=== PATIENT | male | born 1955 | race Caucasian/White ===

== ENCOUNTER 2022-03-19 14:46 | Inpatient (IN) | payer OTHER, SELFPAY ==
[2022-03-19] VITALS (10 sets, daily range): BP systolic 118–154; BP diastolic 69–93; PULSE 75–119; RESP 20–44; TEMP 36.3–36.9; O2SAT 95–98; BMI 18.5
--- NOTE | ~2022-03-19 | XR_ITS ---
EXAMINATION: XR chest 2V Exam Date/Time: 03/24/2022 14:31 CDT HISTORY: epigastric pain Comparison: 03/19/2022. RESULT: Lines, tubes, and devices: Left chest pacer with intact leads. Right IJ dual-lumen central venous li ne terminating in the SVC. Lungs and pleura: Minimal subsegmental bibasilar opacities. Emphysematous change. Cardiomediastinal silhouette: Stable cardiomediastinal silhouette. Other: No acute osseous or upper abdominal finding. IMPRESSION: Bibasilar atelectasis. No acute cardiopulmonary process. Reviewed, dictated and finalized at location K.
--- NOTE | ~2022-03-19 | XR_ITS ---
EXAMINATION: XR chest 1V portable INDICATION: Shortness of breath TECHNIQUE: Portable AP chest at 1618 hours COMPARISON: None available FINDINGS: The lungs are hyperinflated but free of acute opacities. No pleural effusion or pneumothora x. A large bore right internal jugular catheter ends with its tip in the distal superior vena cava. T he cardiomediastinal silhouette is normal. A dual-lead cardiac pacemaker of the left chest wall ends with leads in expected locations. IMPRESSION: 1. No acute cardiopulmonary abnormality. Reviewed, dictated and finalized at location A.
--- NOTE | ~2022-03-19 | US_ITS ---
EXAMINATION: US renal BI DATE: 03/20/2022 09:04 INDICATION: Acute kidney injury TECHNIQUE: Multiple grayscale and Doppler ultrasound images of the kidneys were obtained. COMPARISON: None. FINDINGS: The right kidney is difficult to visualize due to overlying bowel and patient factors. The right kidney measures 7.7 x 4.0 x 3.5 cm. The left kidney measures 8.1 x 3.5 x 2.9 cm. The kidneys de monstrate normal parenchymal echogenicity. There is no hydronephrosis. The bladder is not distended. IMPRESSION: 1. Normal kidneys without hydronephrosis. Reviewed, dictated and finalized at location A.
--- NOTE | ~2022-03-19 | CT_ITS ---
EXAMINATION: CT brain wo con DATE: 03/19/2022 18:04 INDICATION: Confusion. Altered mental status. Covid-positive. Weakness. TECHNIQUE: Computed tomography (CT) of the head was performed without intravenous contrast. The mA wa s adjusted according to patient size. Iterative reconstruction technique was employed. Exam dose: 68 1.00 mGy-cm total exam DLP. COMPARISON: None FINDINGS: Moderate cerebral and cerebellar volume loss. There is nonspecific diminished attenuation o f the cerebral white matter, likely due to chronic small vessel ischemic changes. There is a chronic lacunar infarct of the left thalamus. No subdural or epidural hematoma is detected. There is prominent mucoperiosteal thickening of the maxillary sinuses and to a lesser extent the righ t sphenoid sinus. There is minimal mucoperiosteal thickening of the left sphenoid and frontal sinuses . Soft tissue thickening of the ethmoid air cells, left greater than right. The mastoid air cells are normally developed and aerated. Probable old nasal bone fractures. No fracture of the cranial vault. IMPRESSION: Chronic lacunar infarct of left thalamus Nonspecific diminished attenuation of cerebral white matter, likely due to chronic small vessel ische marek changes. Moderate cerebral and cerebellar volume loss No acute intracranial finding Reviewed, dictated and finalized at Location A. Reviewed, dictated and finalized at location B. 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 Moderate cerebral and cerebellar volume loss No acute intracranial finding
--- NOTE | 2022-03-19 15:12 | ECG_ITS ---
Measurements Intervals Shafer Rate: 113 P: 58 CA: 92 QRS: 68 QRSD: 97 T: 57 QT: 341 QTc: 469 Interpretive Statements SINUS TACHYCARDIA WITH SHORT CA INTERVAL NONSPECIFIC ST & T-WAVE ABNORMALITY ABNORMAL RHYTHM ECG NO PREVIOUS ECG AVAILABLE FOR COMPARISON Electronically Signed On 03-19-2022 19:39:00 CDT by Lady Francis M.D.
[2022-03-19 15:25] LABS: Basophils Absolute Auto 0.1 K/mm3 (0.0-0.1); Basophils Percent Auto 1.4 % (0.2-1.2); Eosinophils Absolute Auto 0.2 K/mm3 (0-0.3); Hematocrit 34.4 % (42.0-52.0); Immature Granulocyte Absolute 0.01 K/mm3 (0.00-0.031); Immature Granulocyte Percent A 0.1 % (0-0.5); Lymphocytes Absolute Auto 1.29 K/mm3 (0.9-3.2); Lymphocytes Percent Auto 18.5 % (18.3-44.2); Mean Corpuscular Hemoglobin 30.2 pg (26-34); Mean Corpuscular Volume 94.5 fl (80-100); Monocytes Absolute Auto 0.5 K/mm3 (0.1-0.6); Monocytes Percent Auto 7.2 % (2.6-8.5); Neutrophils Absolute Auto 4.9 K/mm3 (1.3-6.7); Neutrophils Percent Auto 69.8 % (45.5-73.1); Platelet Count Result 349 k/mm3 (150-375); Red Blood Count 3.64 M/mm3 (4.6-6.20); Red Cell Distribution Width 14.3 % (11.5-14.5)
--- NOTE | 2022-03-19 15:32 | ED.AMS ---
HPI - Altered Mental Status General Chief Complaint: Altered Mental Status Stated Complaint: altered loc, dyspnea Time Seen by Provider: 03/19/22 15:02 History of Present Illness HPI narrative: Pt sent to ER for altered mental status and shortness of breath from dialysis after he completed the procedure. Pt was somewhat SOB and altered before but worse afterward. Related Data Allergies Allergy/AdvReac Type Severity Reaction Status Date / Time No Known Allergies Allergy Unverified 03/19/22 14:57 Review of Systems Review of Systems: ROS unobtainable: Yes unobtainable due to mental status Exam Const: General: ill appearing Nutritional Appearance: thin Orientation/consciousness: patient oriented x3 (oriented to person only) Limitations: altered mental status HENMT: Head: normal to inspection Eyes: EOM: EOMs intact bilaterally Neck: Neck: normal visual inspection Resp: Effort & Inspection: labored and tachypneic Auscultation: wheezes Cardio: Rate: tachycardic Rhythm: regular rhythm GI: GI Palp: Yes Soft to palpation Auscultation: normal bowel sounds Back/Spine/Pelvis: Back: no CVA tenderness Skin: General skin exam: normal color Rashes: no rashes Neuro: General: patient oriented x3, moves all extremities and no meningeal signs Extrem: General: no clubbing, cyanosis or edema Course Vital Signs Vital signs: Vital Signs Temperature 97.4 F L 03/19/22 14:51 Pulse Rate 119 H 03/19/22 14:51 Respiratory Rate 44 H 03/19/22 14:51 Blood Pressure 139/77 03/19/22 14:51 Pulse Oximetry 96 03/19/22 14:51 Oxygen Delivery Nasal Cannula 03/19/22 14:51 Oxygen Flow Rate 6 03/19/22 14:51 Temperature 97.4 F L 03/19/22 14:51 Pulse Rate 96 03/19/22 18:50 Respiratory Rate 24 H 03/19/22 18:50 Blood Pressure 125/69 03/19/22 18:50 Pulse Oximetry 97 03/19/22 18:50 Oxygen Delivery Nasal Cannula 03/19/22 14:51 Oxygen Flow Rate 6 03/19/22 14:51 MDM - Altered Mental Status Lab Data Result diagrams: 03/19/22 15:17 03/19/22 15:17 Labs: Lab Results 03/19/22 03/19/22 03/19/22 Range/Units 15:17 15:17 15:17 WBC 7.0 (4.5-10.0) K/mm3 RBC 3.64 L (4.6-6.20) M/mm3 Hgb 11.0 L (14.0-18.0) g/dL Hct 34.4 L (42.0-52.0) % MCV 94.5 (80-100) fl MCH 30.2 (26-34) pg MCHC 32.0 (32-36) g/dl RDW 14.3 (11.5-14.5) % Plt Count 349 (150-375) k/mm3 MPV 10.0 (7.4-10.4) fl Immature Gran % (Auto) 0.1 (0-0.5) % Neut % (Auto) 69.8 (45.5-73.1) % Lymph % (Auto) 18.5 (18.3-44.2) % Henry % (Auto) 7.2 (2.6-8.5) % Eos % (Auto) 3.0 (0-4.4) % Baso % (Auto) 1.4 H (0.2-1.2) % Lymph # (Auto) 1.29 (0.9-3.2) K/mm3 Henry # (Auto) 0.5 (0.1-0.6) K/mm3 Eos # (Auto) 0.2 (0-0.3) K/mm3 Baso # (Auto) 0.1 (0.0-0.1) K/mm3 Abs Immat Gran (auto) 0.01 (0.00-0.031) K/mm3 Absolute Neuts (auto) 4.9 (1.3-6.7) K/mm3 Absolute Nucleated RBC 0.0 (0.0-0.012) K/mm3 Nucleated RBC % 0.0 (0.0-0.2) % PT 13.0 (11.1-14.7) Seconds INR 1.0 APTT 23.6 (22.3-36.8) SECONDS Sodium 135 L (137-145) mmol/L Potassium 4.4 (3.4-5.0) mmol/L Chloride 98 (98-107) mmol/L Carbon Dioxide 29 (22-30) mmol/L Anion Gap 8 (8-16) mmol/L BUN 14 (9-20) mg/dL Creatinine 2.60 H (0.7-1.3) mg/dL Estim Creat Clear Calc 18 ml/min Estimated GFR 25 L (59 - ) Glucose 130 H (65-110) mg/dL Lactic Acid (0.7-2.0) mmol/L Calcium 8.8 (8.4-10.2) mg/dL Total Bilirubin 0.8 (0.2-1.3) mg/dL AST 28 (17-59) U/L ALT 15 (6-50) U/L Alkaline Phosphatase 70 (38-126) U/L Total Protein 8.0 (6.3-8.2) g/dL Albumin 4.1 (3.5-5.1) g/dL Urine Color (Yellow) Urine Appearance (Clear) Urine pH (5.0-9.0) Ur Specific [place] (1.001-1.035) Urine Protein (Negative) mg/dL Urine Glucose (UA) (Negative) mg/dL Urine Ketones
[2022-03-19 15:33] LABS: Lactic Acid Reflex 1.4 mmol/L (0.7-2.0)
[2022-03-19 15:40] LABS: Partial Thromboplastin Time 23.6 SECONDS (22.3-36.8)
[2022-03-19 15:53] LABS: Alanine Aminotransferase 15 U/L (6-50); Albumin Level 4.1 g/dL (3.5-5.1); Alkaline Phosphatase 70 U/L (38-126); Anion Gap 8 mmol/L (8-16); Aspartate Amino Transferase 28 U/L (17-59); Bilirubin,Total 0.8 mg/dL (0.2-1.3); Blood Urea Nitrogen 14 mg/dL (9-20); Calcium 8.8 mg/dL (8.4-10.2); Carbon Dioxide 29 mmol/L (22-30); Chloride 98 mmol/L (98-107); Estimated CRCL calculation 18 ml/min; Estimated Glomerular Filt Rate 25; Glucose 130 mg/dL (65-110); Potassium 4.4 mmol/L (3.4-5.0); Sodium 135 mmol/L (137-145)
[2022-03-19 16:14] LABS: SARS-CoV-2 RNA PCR Positive
[2022-03-19 16:24] LABS: Appearance Urine Clear (Clear); Bilirubin Urine Negative (Negative); Blood Urine 1+ (Negative); Color Urine Yellow (Yellow); Glucose Urine UA Negative (Negative); Ketones Urine Negative (Negative); Leukocyte Esterase Ur Negative LEU/UL (Negative); Nitrate Urine Negative (Negative); Protein Urine 2+ mg/dL (Negative); Specific Grav Ur 1.015 (1.001-1.035); Urobilinogen Urine 0.2 mg/dL (<2.0); pH Urine 8.5 (5.0-9.0)
[2022-03-19] MEDS: ALBUTEROL SULFATE NEB 2.5 MG/3 ML INH INHALATION ×2 (16:39→22:46)
[2022-03-19] MEDS: IPRATROPIUM BR 0.02% INH SOLN 0.5 MG/2.5 ML VIAL INHALATION ×2 (16:40→22:46)
[2022-03-19 16:44] LABS: Bacteria Urine Trace /hpf; RBC Urine >75 /hpf (0-2); WBC Urine 0-3 /hpf
[2022-03-19 16:45] LABS: Add Urine Microscopic? YES
[2022-03-19 19:28] LABS: Influenza A QL RT-PCR Negative (Negative); Influenza B QL RT-PCR Negative (Negative)
--- NOTE | 2022-03-19 20:14 | PM.IMHP ---
H&P: HPI History of Present Illness Date/Time: 03/19/22 20:14 Chief Complaint: shortness of breath Narrative: this is a 66-year-old male with past medical history significant for COPD/emphysema, tobacco dependence, Essential tremors patient smokes 2 packs of cigarettes daily, presents to the emergency room due to altered mental status. Patient states that he has not been feeling well has been having chills rigors cough productive of sputum for the last few days or so, poor appetite. preliminary workup was significant for positive COVID-19. a chest x-ray did not show any acute abnormalities. Patient complains worsening of tremors, Feeling fatigued, tired, body aches and pains, poor appetite. patient is been admitted for further evaluation management and treatment. Review of Systems Review of Systems: worsening tremors, fatigue, poor appetite. Constitutional: Constitutional: Denies chills, Denies fever(s), Reports malaise, Denies night sweats and Reports weakness Eyes: Eyes: Denies change in vision ENT: Denies dysphagia, Denies vertigo, Denies dizziness and Denies odynophagia Cardiovascular: Cardiovascular: Denies syncope, Denies irregular heart rhythm, Denies lightheadedness, Denies palpitations, Denies dyspnea on exertion and Denies paroxysmal nocturnal dyspnea Respiratory: Respiratory: Reports cough, Denies excessive phlegm production and Denies dyspnea Gastrointestinal: Gastrointestinal: Denies abdominal pain, Denies dyspepsia and Denies heartburn Genitourinary: Genitourinary: Denies dysuria Musculoskeletal: Musculoskeletal: Denies joint swelling, Reports muscle weakness and Denies neck pain Integumentary/Breasts: Skin/Breast: Denies rash Neurologic: Reports tremor(s) Psychiatric: Psychiatric: Reports no additional psychiatric complaints and Reports as per HPI Endocrine: Endocrine: Denies cold intolerance, Denies heat intolerance, Denies polyphagia, Denies polydipsia and Denies palpitations Hematologic/Lymphatic: Hematologic/Lymphatic: Reports no additional hematologic/lymphatic complaints and Reports as per HPI Allergic/Immunologic: Allergic/Immunologic: Reports no additional allergic/immunologic complaints and Reports as per HPI [facility] Family History Family History (Updated 03/19/22 @ 20:58 by Dania Stuart RN) Father Cancer of lung Mother Heart failure Social History Social History (System 08/09/20 @ 08:09 by Sailaja Bernstein) Smoking packs per day: 2 Smoking cigarettes per day: 40.0 Smoking status: Heavy tobacco smoker Alcohol intake: former Substance use: never Spiritual care concerns: No Meds Home Medications and Allergies Home Medications Medication Instructions Recorded Confirmed Type aspirin 81 mg tablet,delayed 81 mg PO DAILY 03/19/22 03/19/22 History release atorvastatin 40 mg tablet 40 mg PO DAILY 03/19/22 03/19/22 History clonidine HCl 0.1 mg tablet 0.1 mg PO TID 03/19/22 03/19/22 History divalproex 500 mg tablet,extended 500 mg PO BID 03/19/22 03/19/22 History release 24 hr famotidine 20 mg tablet 20 mg PO HS 03/19/22 03/19/22 History hydralazine 50 mg tablet 100 mg PO TID 03/19/22 03/19/22 History isosorbide mononitrate 30 mg PO DAILY 03/19/22 03/19/22 History nifedipine 90 mg tablet,extended 90 mg PO DAILY 03/19/22 03/19/22 History release oxybutynin chloride 10 mg 10 mg PO DAILY 03/19/22 03/19/22 History tablet,extended release 24 hr sodium bicarbonate 650 mg tablet 650 mg PO TID 03/19/22 03/19/22 History Allergies Allergy/AdvReac Type Severity Reaction Status Date / Time No Known Allergies Allergy Verified 03/19/22 20:51 Vital Signs Vital Signs - 24 hr 03/19/22 14:51 03/19/22 15:18 03/19/22 16:19 Temperature 97.4 F L Pulse Rate 119 H 117 H 106 H Respiratory Rate 44 H 33 H 31 H Blood Pressure 139/77 131/77 118/74 Pulse Oximetry 96 97 97 Oxygen Delivery Nasal Cannula Oxygen Flow Rate 6 03/19/22 18:02 03/19
--- NOTE | 2022-03-19 20:50 | ADMGEN ---
This patient, Sachin Donahue, was admitted to [facility] Surg Room 333-01. Patient/family oriented to hospital policies and general routines including ID bracelet, bed and alarms, visiting hours, pain management, procedures, bathroom and other care routines, personal items, smoking policy, room service/diet, and visiting hours. Information on how to activate the Rapid Response Team has been discussed. Patient/Family are encouraged to report perceived risks to care and to ask questions if they do not understand what they are told or what they should do.
[2022-03-20] VITALS (12 sets, daily range): BP systolic 95–167; BP diastolic 53–78; PULSE 60–85; RESP 18–26; TEMP 35.8–36.9; O2SAT 95–100; BMI 18.5
[2022-03-20] MEDS: LORazepam INJ (*CRX) 2 MG/ML VIAL 1 MG IV PUSH (00:15)
[2022-03-20] MEDS: cloNIDine HCL 0.1 MG TABLET PO ×4 (01:25→17:38)
[2022-03-20] MEDS: SODIUM BICARBONATE TAB 650 MG TABLET PO ×4 (01:25→17:38)
[2022-03-20] MEDS: DIVALPROEX SODIUM ER 500 MG TAB.24H PO ×3 (01:26→17:38)
[2022-03-20] MEDS: FAMOTIDINE 20 MG TABLET PO ×2 (01:28→20:46)
[2022-03-20 04:32] LABS: Creatinine Urine 86.7 mg/dL
[2022-03-20 04:34] LABS: Sodium Urine Random 94 meq/L
[2022-03-20 08:26] LABS: Glucose Point of Care 81 mg/dl (65-105)
[2022-03-20] MEDS: ATORVASTATIN 40 MG TABLET PO (09:40)
[2022-03-20] MEDS: NIFEdipine 30 MG TAB.ER.24 90 MG PO (09:40)
[2022-03-20] MEDS: ASPIRIN 81 MG ENTERIC TABLET PO (09:40)
[2022-03-20] MEDS: hydrALAZINE HCL 50 MG TABLET 100 MG PO ×3 (09:40→17:37)
[2022-03-20] MEDS: ISOSORBIDE MONONITRATE 30 MG TAB.ER.24H PO (09:41)
--- NOTE | 2022-03-20 13:12 | PM.IMPN ---
Progress Note: A&P Assessment and Plan (1) COPD exacerbation: Code(s): J44.1 - Chronic obstructive pulmonary disease with (acute) exacerbation Status: Acute Assessment and Plan: admit to regular medical floor breathing treatments continue to monitor supportive care (2) COVID-19: Code(s): U07.1 - COVID-19 Status: Acute Assessment and Plan: continue to monitor oxygen as needed (3) Tobacco dependence: Code(s): F17.200 - Nicotine dependence, unspecified, uncomplicated Status: Acute Assessment and Plan: nicotine patch as needed (4) CAMERON (acute kidney injury): Code(s): N17.9 - Acute kidney failure, unspecified Status: Acute Assessment and Plan: creatinine is 2.6 no prior values for comparison Dela Cruz catheter in urine lytes in progress recheck BMP ordered Subjective Date/time seen: 03/20/22 13:12 no new complaint Exam Narrative: Patient is laying in bed Const: General: comfortable, no acute distress, well developed, alert, awake and ill appearing Nutritional Appearance: underweight Orientation/consciousness: patient oriented x3 HENMT: Head: normal to inspection, normocephalic and atraumatic Ears: hearing grossly normal bilaterally Face and sinus: normal facial exam Eyes: General: appearance normal, both eyes and all related structures Pupils: Equal, round and reactive pupils present EOM: EOMs intact bilaterally Neck: Neck: full ROM, no lymphadenopathy and no JVD Thyroid: thyroid normal Lymphatic: no lymphadenopathy noted Resp: Effort & Inspection: normal respiratory effort and able to speak in complete sentences Auscultation: clear to auscultation bilaterally and wheezes Cardio: Jugular venous distension: no JVD Rate: regular rate Rhythm: regular rhythm Heart sounds: S1 normal heart sound present and S2 normal heart sound present GI: Inspection: normal to inspection : General: Yes deferred Skin: Rashes: no rashes Wounds: no wounds Neuro: General: patient oriented x3, CN's II-XI intact bilaterally and Unable to assess gait Cranial nerves: Yes CN's II-XII intact bilaterally and Yes Equal, round and reactive pupils present Cognition (Neuro): normal cognition Speech: normal speech Gait exam (Neuro): Normal gait present and Unable to assess gait Motor exam (neuro): 5/5 motor strength present throughout Extrem: General: normal to inspection, full ROM, no joint enlargement and no pedal edema Objective Data Vital Signs Vital Signs: Vital Signs - 24 hr 03/19/22 14:51 03/19/22 15:18 03/19/22 16:19 Temperature 97.4 F L Pulse Rate 119 H 117 H 106 H Respiratory Rate 44 H 33 H 31 H Blood Pressure 139/77 131/77 118/74 Pulse Oximetry 96 97 97 Oxygen Delivery Nasal Cannula Oxygen Flow Rate 6 03/19/22 18:02 03/19/22 18:50 03/19/22 21:50 Temperature 98.5 F Pulse Rate 112 H 96 86 Respiratory Rate 30 H 24 H 20 Blood Pressure 134/73 125/69 154/93 H Pulse Oximetry 98 97 97 Oxygen Delivery Oxygen Flow Rate 03/19/22 20:00 03/19/22 22:47 03/19/22 23:00 Temperature Pulse Rate 108 H 79 75 Respiratory Rate 23 H 20 Blood Pressure Pulse Oximetry Oxygen Delivery Oxygen Flow Rate 03/19/22 23:02 03/19/22 20:00 03/20/22 00:00 Temperature Pulse Rate 75 75 79 Respiratory Rate 20 Blood Pressure Pulse Oximetry 95 95 Oxygen Delivery Nasal Cannula Oxygen Flow Rate 2 4 03/20/22 01:00 03/20/22 04:00 03/20/22 06:07 Temperature 97.8 F 97.8 F Pulse Rate 63 78 71 Respiratory Rate 26 H 20 Blood Pressure 139/75 167/74 H Pulse Oximetry 95 98 Oxygen Delivery Oxygen Flow Rate 03/20/22 08:00 Temperature 97.1 F L Pulse Rate 64 Respiratory Rate 20 Blood Pressure 157/78 H Pulse Oximetry 96 Oxygen Delivery Oxygen Flow Rate Intake/Output Intake/Output: Intake & Output 03/17/22 03/18/22 03/19/22 03/20/22 23:59 23:59 23:59 23:59 Intake Total 20
[2022-03-20] MEDS: NICOTINE (*PBKC) 21 MG PATCH 1 PATCH TRANSDERM (17:37)
[2022-03-20] MEDS: IPRATROPIUM BR 0.02% INH SOLN 0.5 MG/2.5 ML VIAL INHALATION (21:16)
[2022-03-21] VITALS (14 sets, daily range): BP systolic 115–147; BP diastolic 70–80; PULSE 60–90; RESP 14–20; TEMP 36.2–37.5; O2SAT 92–99
[2022-03-21 07:13] LABS: Hematocrit 29.3 % (42.0-52.0); Mean Corpuscular HGB Conc 30.7 g/dl (32-36); Mean Corpuscular Hemoglobin 29.9 pg (26-34); Mean Corpuscular Volume 97.3 fl (80-100); Platelet Count Result 295 k/mm3 (150-375); Red Blood Count 3.01 M/mm3 (4.6-6.20); Red Cell Distribution Width 14.1 % (11.5-14.5); White Blood Count 6.5 K/mm3 (4.5-10.0)
[2022-03-21 07:27] LABS: Anion Gap 4 mmol/L (8-16); Blood Urea Nitrogen 28 mg/dL (9-20); Calcium 8.1 mg/dL (8.4-10.2); Carbon Dioxide 34 mmol/L (22-30); Chloride 97 mmol/L (98-107); Estimated CRCL calculation 9 ml/min; Estimated Glomerular Filt Rate 10; Glucose 94 mg/dL (65-110); Potassium 3.9 mmol/L (3.4-5.0); Sodium 135 mmol/L (137-145)
[2022-03-21] MEDS: NICOTINE (*PBKC) 21 MG PATCH 1 PATCH TRANSDERM (08:53)
[2022-03-21] MEDS: IPRATROPIUM BR 0.02% INH SOLN 0.5 MG/2.5 ML VIAL INHALATION ×4 (09:29→23:45)
[2022-03-21] MEDS: NIFEdipine 30 MG TAB.ER.24 90 MG PO (10:21)
[2022-03-21] MEDS: ASPIRIN 81 MG ENTERIC TABLET PO (10:22)
[2022-03-21] MEDS: cloNIDine HCL 0.1 MG TABLET PO ×3 (10:23→18:10)
[2022-03-21] MEDS: hydrALAZINE HCL 50 MG TABLET 100 MG PO ×3 (10:24→18:10)
[2022-03-21] MEDS: ATORVASTATIN 40 MG TABLET PO (10:25)
[2022-03-21] MEDS: ISOSORBIDE MONONITRATE 30 MG TAB.ER.24H PO (10:25)
[2022-03-21] MEDS: SODIUM BICARBONATE TAB 650 MG TABLET PO ×3 (10:26→18:10)
[2022-03-21] MEDS: DIVALPROEX SODIUM ER 500 MG TAB.24H PO ×2 (10:34→18:10)
--- NOTE | 2022-03-21 12:39 | PM.IMPN ---
Progress Note: A&P Assessment and Plan (1) COPD exacerbation: Code(s): J44.1 - Chronic obstructive pulmonary disease with (acute) exacerbation Status: Acute Assessment and Plan: Improved. (2) COVID-19: Code(s): U07.1 - COVID-19 Status: Acute Assessment and Plan: continue to monitor oxygen as needed (3) Tobacco dependence: Code(s): F17.200 - Nicotine dependence, unspecified, uncomplicated Status: Acute Assessment and Plan: nicotine patch as needed (4) Chronic kidney disease: Code(s): N18.9 - Chronic kidney disease, unspecified Status: Acute Assessment and Plan: Nephrology has been consulted Patient is hemodialysis patient. (5) Bacteremia: Code(s): R78.81 - Bacteremia Status: Acute Assessment and Plan: Gram-positive coccus in clusters in 2 bottles. IV vanc. Patient does have hemodialysis catheter and Subjective Date/time seen: 03/21/22 12:39 No new complaints today. Patient just feels weak overall. This is a chronic issue Exam Narrative: Patient is laying in bed Const: General: comfortable, no acute distress, well developed, alert, awake and ill appearing Nutritional Appearance: underweight Orientation/consciousness: patient oriented x3 HENMT: Head: normal to inspection, normocephalic and atraumatic Ears: hearing grossly normal bilaterally Face and sinus: normal facial exam Eyes: General: appearance normal, both eyes and all related structures Pupils: Equal, round and reactive pupils present EOM: EOMs intact bilaterally Neck: Neck: full ROM, no lymphadenopathy and no JVD Thyroid: thyroid normal Lymphatic: no lymphadenopathy noted Resp: Effort & Inspection: normal respiratory effort and able to speak in complete sentences Auscultation: clear to auscultation bilaterally and wheezes Cardio: Jugular venous distension: no JVD Rate: regular rate Rhythm: regular rhythm Heart sounds: S1 normal heart sound present and S2 normal heart sound present GI: Inspection: normal to inspection : General: Yes deferred Skin: Rashes: no rashes Wounds: no wounds Neuro: General: patient oriented x3, CN's II-XI intact bilaterally and Unable to assess gait Cranial nerves: Yes CN's II-XII intact bilaterally and Yes Equal, round and reactive pupils present Cognition (Neuro): normal cognition Speech: normal speech Gait exam (Neuro): Normal gait present and Unable to assess gait Motor exam (neuro): 5/5 motor strength present throughout Extrem: General: normal to inspection, full ROM, no joint enlargement and no pedal edema Objective Data Vital Signs Vital Signs: Vital Signs - 24 hr 03/20/22 16:00 03/20/22 20:18 03/20/22 21:16 Temperature 98.4 F Pulse Rate 62 72 77 Respiratory Rate 18 20 Blood Pressure 125/73 Pulse Oximetry 97 Oxygen Delivery Oxygen Flow Rate 03/20/22 21:25 03/20/22 20:00 03/21/22 00:00 Temperature 97.8 F Pulse Rate 78 64 Respiratory Rate 20 20 Blood Pressure 147/80 H Pulse Oximetry 97 98 Oxygen Delivery Nasal Cannula Oxygen Flow Rate 1 03/20/22 20:00 03/21/22 00:00 03/21/22 04:00 Temperature 98.4 F Pulse Rate 69 78 61 Respiratory Rate 18 Blood Pressure 139/73 Pulse Oximetry 99 Oxygen Delivery Oxygen Flow Rate 03/21/22 04:00 03/21/22 08:00 03/21/22 08:00 Temperature 97.1 F L Pulse Rate 60 80 Respiratory Rate 14 Blood Pressure 144/80 H Pulse Oximetry 98 98 Oxygen Delivery Nasal Cannula Oxygen Flow Rate 1 03/21/22 09:20 03/21/22 09:35 03/21/22 09:00 Temperature Pulse Rate 77 78 90 Respiratory Rate 20 20 Blood Pressure Pulse Oximetry Oxygen Delivery Oxygen Flow Rate 03/21/22 12:00 03/21/22 12:00 Temperature 99.5 F Pulse Rate 80 77 Respiratory Rate 16 Blood Pressure 137/73 Pulse Oximetry 97 Oxygen Delivery Oxygen Flow Rate Intake/Output Intake/Output: Intake & Output
--- NOTE | 2022-03-21 15:05 | PCCCNOTE ---
On 03/21/22, the student, [Rebecca Ferrell], provided care and completed [facility] documentation on this patient. I have reviewed the student's documentation and agree with the findings.
[2022-03-21] MEDS: ALBUTEROL SULFATE NEB 2.5 MG/3 ML INH INHALATION ×2 (16:30→20:37)
[2022-03-21 20:21] LABS: Hepatitis B Surface Antigen Negative (Negative)
[2022-03-21 20:26] LABS: Hepatitis B Core IgM Result Negative (Negative)
[2022-03-21 20:38] LABS: Hepatitis B Surface Anti Res Negative
[2022-03-21] MEDS: FAMOTIDINE 20 MG TABLET PO (21:03)
[2022-03-22] VITALS (27 sets, daily range): BP systolic 114–177; BP diastolic 64–104; PULSE 60–108; RESP 16–24; TEMP 36.1–36.7; O2SAT 93–98
[2022-03-22] MEDS: IPRATROPIUM BR 0.02% INH SOLN 0.5 MG/2.5 ML VIAL INHALATION ×5 (03:25→21:47)
[2022-03-22 06:21] LABS: Hematocrit 27.8 % (42.0-52.0); Hemoglobin 8.9 g/dL (14.0-18.0); Mean Corpuscular Hemoglobin 30.4 pg (26-34); Mean Corpuscular Volume 94.9 fl (80-100); Mean Platelet Volume 10.5 fl (7.4-10.4); Platelet Count Result 268 k/mm3 (150-375); Red Blood Count 2.93 M/mm3 (4.6-6.20); Red Cell Distribution Width 14.1 % (11.5-14.5); White Blood Count 7.2 K/mm3 (4.5-10.0)
[2022-03-22 07:57] LABS: Anion Gap 6 mmol/L (8-16); Blood Urea Nitrogen 38 mg/dL (9-20); Calcium 8.1 mg/dL (8.4-10.2); Carbon Dioxide 30 mmol/L (22-30); Chloride 99 mmol/L (98-107); Estimated CRCL calculation 9 ml/min; Estimated Glomerular Filt Rate 10; Glucose 110 mg/dL (65-110); Sodium 135 mmol/L (137-145)
--- NOTE | 2022-03-22 09:27 | PM.CNNEP ---
Assessment and Plan Assessment and plan (1) End stage renal disease: Code(s): N18.6 - End stage renal disease Status: Acute Assessment and Plan: End-stage renal disease COVID-19 positive status Altered mental status secondary to underlying infection COPD/emphysema Hypertensive renal disease History of urine retention Anemia chronic kidney disease Secondary hyperparathyroidism Tremor secondary to some medication Plan: -hemodialysis today -review medications which testing on an outpatient basis -follow-up for ESRD and related problems -patient does decompensate with his respiratory system quickly. Follow-up. History of Present Illness Reason for Consult Consult date: 03/22/22 Chief Complaint Chief complaint: altered mental status History of Present Illness Narrative: With medium white male with history of ESRD on a Friday, , Friday dialysis schedule in [place]. He had last dialysis on Friday. He was admitted with mental status changes. He has had fevers and chills, cough, productive sputum, found to be COVID positive with new chest x-ray changes. He has underlying COPD and emphysema and chronic respiratory failure. Now admitted for further management. The ostomy to his ongoing renal failure needs. He states that he takes medication with close tremens. He does not know which way it is. There is no lower extremity swelling. He has puffiness around his eyelids. There is no nausea vomiting. Has a chronic indwelling Dela Cruz catheter for urine retention. Number his head or urological follow-up for a while. Review of Systems Review of Systems: All systems reviewed & are unremarkable except as noted in HPI and below PMFSH Past Medical History Medical History (Updated 03/22/22 @ 09:33 by Reji Forte MD) End stage renal disease Family History Family History (Updated 03/19/22 @ 20:58 by Dania Stuart RN) Father Cancer of lung Mother Heart failure Social History Social History (System 08/09/20 @ 08:09 by Sailaja Bernstein) Smoking packs per day: 2 Smoking cigarettes per day: 40.0 Smoking status: Heavy tobacco smoker Alcohol intake: former Substance use: never Spiritual care concerns: No Meds Home Medications and Allergies Home Medications Medication Instructions Recorded Confirmed Type aspirin 81 mg tablet,delayed 81 mg PO DAILY 03/19/22 03/19/22 History release atorvastatin 40 mg tablet 40 mg PO DAILY 03/19/22 03/19/22 History clonidine HCl 0.1 mg tablet 0.1 mg PO TID 03/19/22 03/19/22 History divalproex 500 mg tablet,extended 500 mg PO BID 03/19/22 03/19/22 History release 24 hr famotidine 20 mg tablet 20 mg PO HS 03/19/22 03/19/22 History hydralazine 50 mg tablet 100 mg PO TID 03/19/22 03/19/22 History isosorbide mononitrate 30 mg PO DAILY 03/19/22 03/19/22 History nifedipine 90 mg tablet,extended 90 mg PO DAILY 03/19/22 03/19/22 History release oxybutynin chloride 10 mg 10 mg PO DAILY 03/19/22 03/19/22 History tablet,extended release 24 hr sodium bicarbonate 650 mg tablet 650 mg PO TID 03/19/22 03/19/22 History Allergies Allergy/AdvReac Type Severity Reaction Status Date / Time No Known Allergies Allergy Verified 03/19/22 20:51 Vital Signs Vital Signs - 24 hr 03/21/22 09:35 03/21/22 12:00 03/21/22 12:00 Temperature 37.5 C Pulse Rate 78 80 77 Respiratory Rate 20 16 Blood Pressure 137/73 Pulse Oximetry 97 Oxygen Delivery Oxygen Flow Rate 03/21/22 16:00 03/21/22 16:00 03/21/22 16:30 Temperature 36.7 C Pulse Rate 69 70 Respiratory Rate 18 Blood Pressure 119/72 Pulse Oximetry 98 93 Oxygen Delivery Nasal Cannula Oxygen Flow Rate 2 03/21/22 16:30 03/21/22 20:39 03/21/22 20:39 Temperature Pulse Rate 84 78 Respiratory Rate 20 20 Blood Pressure Pulse Oximetry 92 Oxygen Delivery Nasal Cannula Oxygen Flow Rate 2 03/21/22 16:35 03/21/22 16:3
[2022-03-22] MEDS: DIVALPROEX SODIUM ER 500 MG TAB.24H PO ×2 (10:14→20:02)
[2022-03-22] MEDS: NIFEdipine 30 MG TAB.ER.24 90 MG PO (10:14)
[2022-03-22] MEDS: ATORVASTATIN 40 MG TABLET PO (10:15)
[2022-03-22] MEDS: hydrALAZINE HCL 50 MG TABLET 100 MG PO ×2 (10:15→20:02)
[2022-03-22] MEDS: SODIUM BICARBONATE TAB 650 MG TABLET PO ×2 (10:15→20:02)
[2022-03-22] MEDS: NICOTINE (*PBKC) 21 MG PATCH 1 PATCH TRANSDERM (10:15)
[2022-03-22] MEDS: cloNIDine HCL 0.1 MG TABLET PO ×2 (10:15→20:02)
[2022-03-22] MEDS: ASPIRIN 81 MG ENTERIC TABLET PO (10:15)
[2022-03-22] MEDS: ISOSORBIDE MONONITRATE 30 MG TAB.ER.24H PO (10:15)
--- NOTE | 2022-03-22 11:57 | PM.IMPN ---
Progress Note: A&P Assessment and Plan (1) COPD exacerbation: Code(s): J44.1 - Chronic obstructive pulmonary disease with (acute) exacerbation Status: Acute Assessment and Plan: Improved. (2) COVID-19: Code(s): U07.1 - COVID-19 Status: Acute Assessment and Plan: continue to monitor oxygen as needed (3) Tobacco dependence: Code(s): F17.200 - Nicotine dependence, unspecified, uncomplicated Status: Acute Assessment and Plan: nicotine patch as needed (4) Chronic kidney disease: Code(s): N18.9 - Chronic kidney disease, unspecified Status: Acute Assessment and Plan: Nephrology has been consulted Patient is hemodialysis patient. (5) Bacteremia: Code(s): R78.81 - Bacteremia Status: Acute Assessment and Plan: Gram-positive coccus in clusters in 2 bottles. IV vanc. Patient does have hemodialysis catheter. Subjective Date/time seen: 03/22/22 11:57 No new complaints Exam Narrative: Patient is laying in bed Const: General: comfortable, no acute distress, well developed, alert, awake and ill appearing Nutritional Appearance: underweight Orientation/consciousness: patient oriented x3 HENMT: Head: normal to inspection, normocephalic and atraumatic Ears: hearing grossly normal bilaterally Face and sinus: normal facial exam Eyes: General: appearance normal, both eyes and all related structures Pupils: Equal, round and reactive pupils present EOM: EOMs intact bilaterally Neck: Neck: full ROM, no lymphadenopathy and no JVD Thyroid: thyroid normal Lymphatic: no lymphadenopathy noted Resp: Effort & Inspection: normal respiratory effort and able to speak in complete sentences Auscultation: clear to auscultation bilaterally and wheezes Cardio: Jugular venous distension: no JVD Rate: regular rate Rhythm: regular rhythm Heart sounds: S1 normal heart sound present and S2 normal heart sound present GI: Inspection: normal to inspection : General: Yes deferred Skin: Rashes: no rashes Wounds: no wounds Neuro: General: patient oriented x3, CN's II-XI intact bilaterally and Unable to assess gait Cranial nerves: Yes CN's II-XII intact bilaterally and Yes Equal, round and reactive pupils present Cognition (Neuro): normal cognition Speech: normal speech Gait exam (Neuro): Normal gait present and Unable to assess gait Motor exam (neuro): 5/5 motor strength present throughout Extrem: General: normal to inspection, full ROM, no joint enlargement and no pedal edema Objective Data Vital Signs Vital Signs: Vital Signs - 24 hr 03/21/22 12:00 03/21/22 12:00 03/21/22 16:00 Temperature 99.5 F 98.0 F Pulse Rate 80 77 69 Respiratory Rate 16 18 Blood Pressure 137/73 119/72 Pulse Oximetry 97 98 Oxygen Delivery Oxygen Flow Rate 03/21/22 16:00 03/21/22 16:30 03/21/22 16:30 Temperature Pulse Rate 70 84 Respiratory Rate 20 Blood Pressure Pulse Oximetry 93 Oxygen Delivery Nasal Cannula Oxygen Flow Rate 2 03/21/22 20:39 03/21/22 20:39 03/21/22 16:35 Temperature Pulse Rate 78 Respiratory Rate 20 Blood Pressure Pulse Oximetry 92 93 Oxygen Delivery Nasal Cannula Oxygen Flow Rate 2 03/21/22 16:35 03/21/22 20:00 03/21/22 20:00 Temperature 98.2 F Pulse Rate 80 73 Respiratory Rate 20 16 Blood Pressure 115/70 Pulse Oximetry 94 96 Oxygen Delivery Nasal Cannula Oxygen Flow Rate 2 03/21/22 23:45 03/21/22 23:50 03/22/22 00:00 Temperature 97.6 F Pulse Rate 88 86 75 Respiratory Rate 20 20 16 Blood Pressure 114/65 Pulse Oximetry 98 Oxygen Delivery Oxygen Flow Rate 03/22/22 03:15 03/22/22 03:27 03/21/22 20:00 Temperature Pulse Rate 78 86 87 Respiratory Rate 20 20 Blood Pressure Pulse Oximetry Oxygen Delivery Oxygen Flow Rate 03/22/22 00:00 03/22/22 04:00 03/22/22 04:00 Temperature 97.9 F Pulse Rate 72 68 75 R
--- NOTE | 2022-03-22 14:04 | PC.NURSE ---
Patient transferred to Dialysis via bed at 1354
--- NOTE | 2022-03-22 15:42 | PCCCNOTE ---
On 03/22/22, the student, [Rebecca Ferrell], provided care and completed [facility] documentation on this patient. I have reviewed the student's documentation and agree with the findings.
[2022-03-22] MEDS: FAMOTIDINE 20 MG TABLET PO (20:02)
[2022-03-22] MEDS: polyethylene glycoL 3350 17 GM POWD.PACK PO (20:02)
[2022-03-22 20:30] LABS: Vancomycin Random 5.9 ug/mL (10-20)
[2022-03-22] MEDS: ACETAMINOPHEN 325 MG TABLET 650 MG PO (21:39)
[2022-03-23] VITALS (19 sets, daily range): BP systolic 131–165; BP diastolic 69–85; PULSE 69–96; RESP 14–20; TEMP 36.4–36.6; O2SAT 95–100
[2022-03-23] MEDS: IPRATROPIUM BR 0.02% INH SOLN 0.5 MG/2.5 ML VIAL INHALATION ×6 (00:19→19:33)
[2022-03-23] MEDS: hydrALAZINE HCL 50 MG TABLET 100 MG PO ×3 (08:02→19:56)
[2022-03-23] MEDS: DIVALPROEX SODIUM ER 500 MG TAB.24H PO ×2 (08:03→17:13)
[2022-03-23] MEDS: cloNIDine HCL 0.1 MG TABLET PO ×3 (08:03→19:56)
[2022-03-23] MEDS: ASPIRIN 81 MG ENTERIC TABLET PO (08:04)
[2022-03-23] MEDS: SODIUM BICARBONATE TAB 650 MG TABLET PO ×3 (08:04→19:56)
[2022-03-23] MEDS: ISOSORBIDE MONONITRATE 30 MG TAB.ER.24H PO (08:04)
[2022-03-23] MEDS: NIFEdipine 30 MG TAB.ER.24 90 MG PO (08:04)
[2022-03-23] MEDS: ATORVASTATIN 40 MG TABLET PO (08:05)
[2022-03-23] MEDS: NICOTINE (*PBKC) 21 MG PATCH 1 PATCH TRANSDERM (08:05)
[2022-03-23] MEDS: ALBUTEROL SULFATE NEB 2.5 MG/3 ML INH INHALATION ×2 (09:10→12:59)
[2022-03-23] MEDS: polyethylene glycoL 3350 17 GM POWD.PACK PO (10:08)
--- NOTE | 2022-03-23 11:12 | PM.PNNEP ---
Progress Note: A&P Assessment and Plan (1) End stage renal disease: Code(s): N18.6 - End stage renal disease Status: Chronic Assessment and Plan: HD yesterday normal outpatient schedule is T/T/S will likely plan next HD session on Friday or Friday follow electrolytes, volume status, and clearance (2) Bacteremia: Code(s): R78.81 - Bacteremia Status: Acute Assessment and Plan: blood cultures with Staphylococcus haemolyticus x 2 repeat blood cultures pending (but was already started on antibiotics before re-draw) potential source is tunneled HD catheter... if repeat cultures still positive, will likely need HD catheter removal if repeat cultures negative, would attempt HD catheter salvage with at least 2 weeks IV antibiotics (likely vancomycin given sensitivities) with repeat cultures afterwards to ensure clearance of infection (3) COVID-19: Code(s): U07.1 - COVID-19 Status: Acute Assessment and Plan: appears relatively stable oxygen as needed on isolation monitor respiratory status (4) COPD exacerbation: Code(s): J44.1 - Chronic obstructive pulmonary disease with (acute) exacerbation Status: Acute Assessment and Plan: clinically better on nebulizer treatments continue current therapy (5) Hypertension: Code(s): I10 - Essential (primary) hypertension Status: Chronic Assessment and Plan: reasonsable control at this time continue home medications follow trend of hemodynamics (6) Altered mental status: Code(s): R41.82 - Altered mental status, unspecified Status: Acute Assessment and Plan: improved mentation likely due to infection (bacteremia and COVID -19) Discussed case with Dr. Garay Will continue to follow. Subjective Date/time seen: 03/23/22 11:12 Chart reviewed - following for Dr. Forte; tolerated dialysis treatment yesterday without issue or problems; noted positive blood culture results; otherwise, does not appears in any acute distress. Exam Narrative: General: WD/WN male in NAD Heart: normal S1 and S2; no rub Lungs: coarse breath sounds Abdomen: soft, nontender, nondistended, positive bowel sounds Extremities: no cyanosis or clubbing; no edema Skin: warm and dry Objective Data Vital Signs Vital Signs: Vital Signs Temp Pulse Resp BP Pulse Ox O2 Del Method O2 Flow Rate 03/23/22 09:14 89 18 03/23/22 09:05 95 18 03/23/22 09:05 95 Nasal Cannula 2 03/23/22 07:47 Nasal Cannula 2 03/23/22 07:26 Room Air 03/23/22 04:00 36.6 C 72 16 165/85 H 96 03/23/22 04:00 73 03/23/22 04:17 79 18 03/23/22 04:10 73 18 03/23/22 00:00 36.4 C L 82 16 148/74 H 100 03/23/22 00:27 89 18 03/23/22 00:21 86 18 03/23/22 00:00 84 03/22/22 20:00 94 03/22/22 20:00 93 Nasal Cannula 1 03/22/22 20:00 36.6 C 87 16 123/69 94 03/22/22 21:55 98 20 03/22/22 21:50 93 Nasal Cannula 2 03/22/22 21:49 101 H 24 H 03/22/22 16:00 81 03/22/22 16:55 82 20 03/22/22 16:45 78 20 03/22/22 17:06 93 Nasal Cannula 2 03/22/22 16:00 36.5 C 83 18 138/79 98 03/22/22 17:25 36.7 C 92 20 153/96 H 03/22/22 17:20 108 H 152/96 H 03/22/22 17:00 101 H 177/104 H 03/22/22 16:40 95 147/96 H 03/22/22 16:20 83 138/79 03/22/22 16:00 78 122/76 03/22/22 15:40 71 129/64 03/22/22 15:20 71 137/75 03/22/22 15:00 71 131/69 03/22/22 14:40 60 122/71 03/22/22 14:20 72 128/78 Intake/Output Intake/Output: Intake & Output 03/20/22 03/21/22 03/22/22 03/23/22 23:59 23:59 23:59 23:59 Intake Total 2210 1450 720 980 Output Total 390 611 4327 250 Balance 1510 750 -3030 730 Meds/Results Medications: Active Medications Generic Name Do
--- NOTE | 2022-03-23 11:12 | P.PNNP_ITS ---
Progress Note: A&P Assessment and Plan (1) End stage renal disease: Code(s): N18.6 - End stage renal disease Status: Chronic Assessment and Plan: * HD yesterday * normal outpatient schedule is T/T/S * will likely plan next HD session on Friday or Friday * follow electrolytes, volume status, and clearance (2) Bacteremia: Code(s): R78.81 - Bacteremia Status: Acute Assessment and Plan: * blood cultures with Staphylococcus haemolyticus x 2 * repeat blood cultures pending (but was already started on antibiotics before re-draw) * potential source is tunneled HD catheter... * if repeat cultures still positive, will likely need HD catheter removal * if repeat cultures negative, would attempt HD catheter salvage with at least 2 weeks IV antibiotics (likely vancomycin given sensitivities) with repeat cultures afterwards to ensure clearance of infection (3) COVID-19: Code(s): U07.1 - COVID-19 Status: Acute Assessment and Plan: * appears relatively stable * oxygen as needed * on isolation * monitor respiratory status (4) COPD exacerbation: Code(s): J44.1 - Chronic obstructive pulmonary disease with (acute) exacerbation Status: Acute Assessment and Plan: * clinically better * on nebulizer treatments * continue current therapy (5) Hypertension: Code(s): I10 - Essential (primary) hypertension Status: Chronic Assessment and Plan: * reasonsable control at this time * continue home medications * follow trend of hemodynamics (6) Altered mental status: Code(s): R41.82 - Altered mental status, unspecified Status: Acute Assessment and Plan: * improved mentation * likely due to infection (bacteremia and COVID -19) Discussed case with Dr. Garay Will continue to follow. Subjective Date/time seen: 03/23/22 11:12 Chart reviewed - following for Dr. Forte; tolerated dialysis treatment yesterday without issue or problems; noted positive blood culture results; otherwise, does not appears in any acute distress. Exam Narrative: General: WD/WN male in NAD Heart: normal S1 and S2; no rub Lungs: coarse breath sounds Abdomen: soft, nontender, nondistended, positive bowel sounds Extremities: no cyanosis or clubbing; no edema Skin: warm and dry Objective Data Vital Signs Vital Signs: Vital Signs Temp Pulse Resp BP Pulse Ox O2 Del Method O2 Flow Rate 03/23/22 09:14 89 18 07/02/22 09:05 95 18 03/23/22 09:05 95 Nasal Cannula 2 03/23/22 07:47 Nasal Cannula 2 03/23/22 07:26 Room Air 03/23/22 04:00 36.6 C 72 16 165/85 H 96 03/23/22 04:00 73 03/23/22 04:17 79 18 03/23/22 04:10 73 18 03/23/22 00:00 36.4 C L 82 16 148/74 H 100 03/23/22 00:27 89 18 03/23/22 00:21 86 18 03/23/22 00:00 84 03/22/22 20:00 94 03/22/22 20:00 93 Nasal Cannula 1 03/22/22 20:00 36.6 C 87 16 123/69 94 03/22/22 21:55 98 20 03/22/22 21:50 93 Nasal Cannula 2 03/22/22 21:49 101 H 24 H 03/22/22 16:00 81 03/22/22 16:55 82 20 03/22/22 16:45 78 20 03/22/22 17:06
--- NOTE | 2022-03-23 12:38 | PM.IMPN ---
Progress Note: A&P Assessment and Plan (1) COPD exacerbation: Code(s): J44.1 - Chronic obstructive pulmonary disease with (acute) exacerbation Status: Acute Assessment and Plan: Improved. (2) COVID-19: Code(s): U07.1 - COVID-19 Status: Acute Assessment and Plan: continue to monitor oxygen as needed (3) Tobacco dependence: Code(s): F17.200 - Nicotine dependence, unspecified, uncomplicated Status: Acute Assessment and Plan: nicotine patch as needed (4) Chronic kidney disease: Code(s): N18.9 - Chronic kidney disease, unspecified Status: Acute Assessment and Plan: Nephrology has been consulted Patient is hemodialysis patient. (5) Bacteremia: Code(s): R78.81 - Bacteremia Status: Acute Assessment and Plan: Staph haemolyticus x2. Repeat cultures pending. IV vanc. Patient does have hemodialysis catheter. Spoke with Nephrology. Will do 2 weeks of IV vanc and see if he improves or deteriorates. Will leave hemodialysis catheter in for now. Subjective Date/time seen: 03/23/22 12:38 No complaints Exam Narrative: Patient is laying in bed Const: General: comfortable, no acute distress, well developed, alert, awake and ill appearing Nutritional Appearance: underweight Orientation/consciousness: patient oriented x3 HENMT: Head: normal to inspection, normocephalic and atraumatic Ears: hearing grossly normal bilaterally Face and sinus: normal facial exam Eyes: General: appearance normal, both eyes and all related structures Pupils: Equal, round and reactive pupils present EOM: EOMs intact bilaterally Neck: Neck: full ROM, no lymphadenopathy and no JVD Thyroid: thyroid normal Lymphatic: no lymphadenopathy noted Resp: Effort & Inspection: normal respiratory effort and able to speak in complete sentences Auscultation: clear to auscultation bilaterally and wheezes Cardio: Jugular venous distension: no JVD Rate: regular rate Rhythm: regular rhythm Heart sounds: S1 normal heart sound present and S2 normal heart sound present GI: Inspection: normal to inspection : General: Yes deferred Skin: Rashes: no rashes Wounds: no wounds Neuro: General: patient oriented x3, CN's II-XI intact bilaterally and Unable to assess gait Cranial nerves: Yes CN's II-XII intact bilaterally and Yes Equal, round and reactive pupils present Cognition (Neuro): normal cognition Speech: normal speech Gait exam (Neuro): Normal gait present and Unable to assess gait Motor exam (neuro): 5/5 motor strength present throughout Extrem: General: normal to inspection, full ROM, no joint enlargement and no pedal edema Objective Data Vital Signs Vital Signs: Vital Signs - 24 hr 03/22/22 13:50 03/22/22 13:50 03/22/22 13:55 Temperature 98.0 F Pulse Rate 79 77 Respiratory Rate 18 Blood Pressure 141/81 H 129/80 Pulse Oximetry Oxygen Delivery Oxygen Flow Rate 2 03/22/22 14:20 03/22/22 14:40 03/22/22 15:00 Temperature Pulse Rate 72 60 71 Respiratory Rate Blood Pressure 128/78 122/71 131/69 Pulse Oximetry Oxygen Delivery Oxygen Flow Rate 03/22/22 15:20 03/22/22 15:40 03/22/22 16:00 Temperature Pulse Rate 71 71 78 Respiratory Rate Blood Pressure 137/75 129/64 122/76 Pulse Oximetry Oxygen Delivery Oxygen Flow Rate 03/22/22 16:20 03/22/22 16:40 03/22/22 17:00 Temperature Pulse Rate 83 95 101 H Respiratory Rate Blood Pressure 138/79 147/96 H 177/104 H Pulse Oximetry Oxygen Delivery Oxygen Flow Rate 03/22/22 17:20 03/22/22 17:25 03/22/22 16:00 Temperature 98.1 F 97.7 F Pulse Rate 108 H 92 83 Respiratory Rate 20 18 Blood Pressure 152/96 H 153/96 H 138/79 Pulse Oximetry 98 Oxygen Delivery Oxygen Flow Rate 03/22/22 17:06 03/22/22 16:45 03/22/22 16:55 Temperature Pulse Rate 78 82 Respiratory Rate 20 20 Blood Pressure Pulse Oximet
[2022-03-23] MEDS: ACETAMINOPHEN 325 MG TABLET 650 MG PO (18:47)
[2022-03-23] MEDS: FAMOTIDINE 20 MG TABLET PO (19:56)
[2022-03-23] MEDS: BISACODYL 10 MG SUPPOSITORY RECTAL (22:03)
[2022-03-24] VITALS (16 sets, daily range): BP systolic 108–130; BP diastolic 56–66; PULSE 61–80; RESP 14–20; TEMP 36.5–36.6; O2SAT 96–99
[2022-03-24] MEDS: IPRATROPIUM BR 0.02% INH SOLN 0.5 MG/2.5 ML VIAL INHALATION ×5 (01:49→22:05)
[2022-03-24 06:26] LABS: Vancomycin Trough 12.8 ug/mL (10.0-20.0)
[2022-03-24] MEDS: NIFEdipine 30 MG TAB.ER.24 90 MG PO (08:25)
[2022-03-24] MEDS: cloNIDine HCL 0.1 MG TABLET PO ×3 (08:25→17:33)
[2022-03-24] MEDS: DIVALPROEX SODIUM ER 500 MG TAB.24H PO ×2 (08:26→17:33)
[2022-03-24] MEDS: hydrALAZINE HCL 50 MG TABLET 100 MG PO ×3 (08:26→17:32)
[2022-03-24] MEDS: ASPIRIN 81 MG ENTERIC TABLET PO (08:26)
[2022-03-24] MEDS: NICOTINE (*PBKC) 21 MG PATCH 1 PATCH TRANSDERM (08:26)
[2022-03-24] MEDS: ISOSORBIDE MONONITRATE 30 MG TAB.ER.24H PO (08:26)
[2022-03-24] MEDS: ATORVASTATIN 40 MG TABLET PO (08:26)
[2022-03-24] MEDS: SODIUM BICARBONATE TAB 650 MG TABLET PO ×3 (08:26→17:33)
[2022-03-24] MEDS: polyethylene glycoL 3350 17 GM POWD.PACK PO ×2 (08:32→18:40)
[2022-03-24] MEDS: ACETAMINOPHEN 325 MG TABLET 650 MG PO ×2 (08:39→18:04)
--- NOTE | 2022-03-24 11:05 | PM.IMPN ---
Progress Note: A&P Assessment and Plan (1) COPD exacerbation: Code(s): J44.1 - Chronic obstructive pulmonary disease with (acute) exacerbation Status: Acute Assessment and Plan: Improved. (2) COVID-19: Code(s): U07.1 - COVID-19 Status: Acute Assessment and Plan: continue to monitor oxygen as needed (3) Tobacco dependence: Code(s): F17.200 - Nicotine dependence, unspecified, uncomplicated Status: Acute Assessment and Plan: nicotine patch as needed (4) Chronic kidney disease: Code(s): N18.9 - Chronic kidney disease, unspecified Status: Acute Assessment and Plan: Nephrology has been consulted Patient is hemodialysis patient. (5) Bacteremia: Code(s): R78.81 - Bacteremia Status: Acute Assessment and Plan: Staph haemolyticus x2. Repeat cultures pending. IV vanc. Patient does have hemodialysis catheter. Spoke with Nephrology. Will do 2 weeks of IV vanc and see if he improves or deteriorates. Will leave hemodialysis catheter in for now. Subjective Date/time seen: 03/24/22 11:05 No new complaints. Exam Narrative: Patient is laying in bed Const: General: comfortable, no acute distress, well developed, alert, awake and ill appearing Nutritional Appearance: underweight Orientation/consciousness: patient oriented x3 HENMT: Head: normal to inspection, normocephalic and atraumatic Ears: hearing grossly normal bilaterally Face and sinus: normal facial exam Eyes: General: appearance normal, both eyes and all related structures Pupils: Equal, round and reactive pupils present EOM: EOMs intact bilaterally Neck: Neck: full ROM, no lymphadenopathy and no JVD Thyroid: thyroid normal Lymphatic: no lymphadenopathy noted Resp: Effort & Inspection: normal respiratory effort and able to speak in complete sentences Auscultation: clear to auscultation bilaterally and wheezes Cardio: Jugular venous distension: no JVD Rate: regular rate Rhythm: regular rhythm Heart sounds: S1 normal heart sound present and S2 normal heart sound present GI: Inspection: normal to inspection : General: Yes deferred Skin: Rashes: no rashes Wounds: no wounds Neuro: General: patient oriented x3, CN's II-XI intact bilaterally and Unable to assess gait Cranial nerves: Yes CN's II-XII intact bilaterally and Yes Equal, round and reactive pupils present Cognition (Neuro): normal cognition Speech: normal speech Gait exam (Neuro): Normal gait present and Unable to assess gait Motor exam (neuro): 5/5 motor strength present throughout Extrem: General: normal to inspection, full ROM, no joint enlargement and no pedal edema Objective Data Vital Signs Vital Signs: Vital Signs - 24 hr 03/23/22 12:50 03/23/22 12:57 03/23/22 12:00 Temperature Pulse Rate 78 84 69 Respiratory Rate 18 18 Blood Pressure Pulse Oximetry Oxygen Delivery Oxygen Flow Rate 03/23/22 16:00 03/23/22 19:34 03/23/22 19:35 Temperature Pulse Rate 78 89 Respiratory Rate 16 Blood Pressure Pulse Oximetry 99 Oxygen Delivery Nasal Cannula Oxygen Flow Rate 2 03/23/22 19:50 03/23/22 20:00 03/23/22 22:00 Temperature 97.7 F Pulse Rate 92 84 Respiratory Rate 14 18 Blood Pressure 131/69 Pulse Oximetry 96 96 Oxygen Delivery Nasal Cannula Oxygen Flow Rate 2 03/23/22 20:00 03/24/22 00:00 03/24/22 01:50 Temperature Pulse Rate 84 80 72 Respiratory Rate 14 Blood Pressure Pulse Oximetry Oxygen Delivery Oxygen Flow Rate 03/24/22 01:51 03/24/22 04:00 03/24/22 06:00 Temperature 97.7 F Pulse Rate 66 78 Respiratory Rate 18 Blood Pressure 130/66 Pulse Oximetry 97 96 Oxygen Delivery Nasal Cannula Oxygen Flow Rate 2 03/24/22 08:20 Temperature Pulse Rate Respiratory Rate Blood Pressure Pulse Oximetry 96 Oxygen Delivery Nasal Cannula Oxygen Flow Rate 2 Intake/Output Intake/O
--- NOTE | 2022-03-24 11:53 | PM.PNNEP ---
Progress Note: A&P Assessment and Plan (1) End stage renal disease: Code(s): N18.6 - End stage renal disease Status: Chronic Assessment and Plan: normal outpatient schedule is T/T/S will likely plan next HD session on Friday or Friday depending on dialysis nurse availability follow electrolytes, volume status, and clearance (2) Bacteremia: Code(s): R78.81 - Bacteremia Status: Acute Assessment and Plan: blood cultures with Staphylococcus haemolyticus x 2 repeat blood cultures with no growth (but was already started on antibiotics before re-draw) potential source is tunneled HD catheter... since repeat cultures are negative, would attempt HD catheter salvage with at least 2 weeks IV antibiotics (likely vancomycin given sensitivities) with repeat cultures afterwards to ensure clearance of infection if repeat cultures turn positive, will likely need HD catheter removal (3) COVID-19: Code(s): U07.1 - COVID-19 Status: Acute Assessment and Plan: appears relatively stable oxygen as needed on isolation monitor respiratory status (4) COPD exacerbation: Code(s): J44.1 - Chronic obstructive pulmonary disease with (acute) exacerbation Status: Acute Assessment and Plan: clinically better on nebulizer treatments continue current therapy (5) Hypertension: Code(s): I10 - Essential (primary) hypertension Status: Chronic Assessment and Plan: reasonsable control at this time continue home medications follow trend of hemodynamics (6) Altered mental status: Code(s): R41.82 - Altered mental status, unspecified Status: Acute Assessment and Plan: improved mentation likely due to infection (bacteremia and COVID -19) Will continue to follow. Subjective Date/time seen: 03/24/22 11:54 No new issues or complaints voiced at this time; sleeping comfortably when seen; blood pressure remains stable (if not elevated) and no reported fevers; breathing/respiratory status stable if not better; no apparent distress voiced. Exam Narrative: General: WD/WN male in NAD Heart: normal S1 and S2; no rub Lungs: coarse breath sounds Abdomen: soft, nontender, nondistended, positive bowel sounds Extremities: no cyanosis or clubbing; no edema Skin: warm and intact Objective Data Vital Signs Vital Signs: Vital Signs Temp Pulse Resp BP Pulse Ox O2 Del Method O2 Flow Rate 03/24/22 11:00 76 03/24/22 08:00 75 03/24/22 14:00 36.5 C 66 20 108/56 L 99 03/24/22 08:20 96 Nasal Cannula 2 03/24/22 06:00 36.5 C 78 18 130/66 96 03/24/22 04:00 66 03/24/22 01:51 97 Nasal Cannula 2 03/24/22 01:50 72 14 03/24/22 00:00 80 03/23/22 20:00 84 03/23/22 22:00 36.5 C 84 18 131/69 96 03/23/22 20:00 96 Nasal Cannula 2 03/23/22 19:50 92 14 03/23/22 19:35 99 Nasal Cannula 2 03/23/22 19:34 89 16 Intake/Output Intake/Output: Intake & Output 03/21/22 03/22/22 03/23/22 03/24/22 23:59 23:59 23:59 23:59 Intake Total 9286 889 0892 970 Output Total 700 3750 850 350 Balance 750 -3030 1310 620 Meds/Results Medications: Active Medications Generic Name Dose Route Start Last Admin Trade Name Freq PRN Reason Stop Dose Admin Acetaminophen 650 mg 03/22/22 21:29 03/24/22 08:39 Acetaminophen 325 Mg Tablet PO 650 mg Q6H PRN Administration Mild Pain (1-3) or Fever Albuterol 2.5 mg 03/19/22 22:29 03/23/22 12:59 Albuterol Sulfate Neb 2.5 Mg/3 Ml Inh INHALATION 2.5 mg Q4HRT PRN Administration Shortness Of Breath Albuterol 2 puff 03/24/22 13:15 Albuterol Sulfate (*Sp) Aerosol 1 Puff INHALATION Q4H PRN Shortness Of Breath Aspirin 81 mg 03/20/22 09:00 03/24/22 08:26 Aspirin 81 Mg Enteric Tablet PO 81 mg DAILY DRAGAN Administration Atorvastatin Calci
--- NOTE | 2022-03-24 11:53 | P.PNNP_ITS ---
Progress Note: A&P Assessment and Plan (1) End stage renal disease: Code(s): N18.6 - End stage renal disease Status: Chronic Assessment and Plan: * normal outpatient schedule is T// * will likely plan next HD session on Friday or Friday depending on dialysis nurse availability * follow electrolytes, volume status, and clearance (2) Bacteremia: Code(s): R78.81 - Bacteremia Status: Acute Assessment and Plan: * blood cultures with Staphylococcus haemolyticus x 2 * repeat blood cultures with no growth (but was already started on antibiotics before re-draw) * potential source is tunneled HD catheter... * since repeat cultures are negative, would attempt HD catheter salvage with at least 2 weeks IV antibiotics (likely vancomycin given sensitivities) with re peat cultures afterwards to ensure clearance of infection * if repeat cultures turn positive, will likely need HD catheter removal (3) COVID-19: Code(s): U07.1 - COVID-19 Status: Acute Assessment and Plan: * appears relatively stable * oxygen as needed * on isolation * monitor respiratory status (4) COPD exacerbation: Code(s): J44.1 - Chronic obstructive pulmonary disease with (acute) exacerbation Status: Acute Assessment and Plan: * clinically better * on nebulizer treatments * continue current therapy (5) Hypertension: Code(s): I10 - Essential (primary) hypertension Status: Chronic Assessment and Plan: * reasonsable control at this time * continue home medications * follow trend of hemodynamics (6) Altered mental status: Code(s): R41.82 - Altered mental status, unspecified Status: Acute Assessment and Plan: * improved mentation * likely due to infection (bacteremia and COVID -19) Will continue to follow. Subjective Date/time seen: 03/24/22 11:54 No new issues or complaints voiced at this time; sleeping comfortably when seen; blood pressure remains stable (if not elevated) and no reported fevers; woodrow thing/respiratory status stable if not better; no apparent distress voiced. Exam Narrative: General: WD/WN male in NAD Heart: normal S1 and S2; no rub Lungs: coarse breath sounds Abdomen: soft, nontender, nondistended, positive bowel sounds Extremities: no cyanosis or clubbing; no edema Skin: warm and intact Objective Data Vital Signs Vital Signs: Vital Signs Temp Pulse Resp BP Pulse Ox O2 Del Method O2 Flow Rate 03/24/22 11:00 76 03/24/22 08:00 75 03/24/22 14:00 36.5 C 66 20 108/56 L 99 03/24/22 08:20 96 Nasal Cannula 2 03/24/22 06:00 36.5 C 78 18 130/66 96 03/24/22 04:00 66 03/24/22 01:51 97 Nasal Cannula 2 03/24/22 01:50 72 14 03/24/22 00:00 80 03/23/22 20:00 84 03/23/22 22:00 36.5 C 84 18 131/69 96 03/23/22 20:00 96 Nasal Cannula 2 03/23/22 19:50 92 14 03/23/22 19:35 99 Nasal Cannula 2 03/23/22 19:34 89 16 Intake/Output Intake/Output: Intake & Output 03/21/22 03/22/22 03/23/22 03/24/22 23:59 23:59 23:59 23:59
--- NOTE | 2022-03-24 13:19 | ECG_ITS ---
Measurements Intervals [place] Rate: 62 P: 3 UT: 104 QRS: 19 QRSD: 89 T: 55 QT: 452 QTc: 460 Interpretive Statements SINUS RHYTHM WITH SHORT UT INTERVAL LEFT VENTRICULAR HYPERTROPHY AND ST-T CHANGE BASELINE WANDER- V5-V6 BORDERLINE ECG Electronically Signed On 03-24-2022 17:21:55 CDT by Varun Ashraf D.O.
--- NOTE | 2022-03-24 14:24 | PCOTNOTE ---
Attempted to see pt for occupational therapy tx. Pt is currently being placed on stretcher for upcoming xray and is unavailable at this time. Will continue per poc duration/frequency.
[2022-03-24 14:47] LABS: Troponin I 0.018 ng/mL (0.000-0.034)
[2022-03-24] MEDS: FAMOTIDINE 20 MG TABLET PO (20:26)
[2022-03-25] VITALS (14 sets, daily range): BP systolic 160–174; BP diastolic 80–86; PULSE 61–89; RESP 16–18; TEMP 36.2–36.5; O2SAT 96–99
[2022-03-25] MEDS: IPRATROPIUM BR 0.02% INH SOLN 0.5 MG/2.5 ML VIAL INHALATION ×5 (01:00→16:33)
[2022-03-25 07:38] LABS: Estimated CRCL calculation 10 ml/min; Estimated Glomerular Filt Rate 10
[2022-03-25] MEDS: DIVALPROEX SODIUM ER 500 MG TAB.24H PO ×2 (09:20→17:43)
[2022-03-25] MEDS: hydrALAZINE HCL 50 MG TABLET 100 MG PO ×3 (09:20→17:43)
[2022-03-25] MEDS: SODIUM BICARBONATE TAB 650 MG TABLET PO ×3 (09:21→17:44)
[2022-03-25] MEDS: ASPIRIN 81 MG ENTERIC TABLET PO (09:21)
[2022-03-25] MEDS: NIFEdipine 30 MG TAB.ER.24 90 MG PO (09:21)
[2022-03-25] MEDS: NICOTINE (*PBKC) 21 MG PATCH 1 PATCH TRANSDERM (09:22)
[2022-03-25] MEDS: cloNIDine HCL 0.1 MG TABLET PO ×3 (09:22→17:43)
[2022-03-25] MEDS: ISOSORBIDE MONONITRATE 30 MG TAB.ER.24H PO (09:22)
[2022-03-25] MEDS: polyethylene glycoL 3350 17 GM POWD.PACK PO (09:36)
[2022-03-25] MEDS: ACETAMINOPHEN 325 MG TABLET 650 MG PO (10:24)
[2022-03-25] MEDS: ALBUTEROL SULFATE NEB 2.5 MG/3 ML INH INHALATION ×2 (11:42→16:33)
--- NOTE | 2022-03-25 13:49 | PM.DS ---
DS: Admitting Diagnosis Discharge Date March 25, 2022 Admitting Diagnosis Shortness of breath, altered mental status DS: Discharge Diagnosis Discharge Diagnosis (1) COPD exacerbation: Code(s): J44.1 - Chronic obstructive pulmonary disease with (acute) exacerbation Status: Acute Assessment and Plan: Improved. No need for treatment of exacerbation on discharge. (2) COVID-19: Code(s): U07.1 - COVID-19 Status: Acute Assessment and Plan: continue to monitor Never had any respiratory failure from this. (3) Tobacco dependence: Code(s): F17.200 - Nicotine dependence, unspecified, uncomplicated Status: Acute Assessment and Plan: nicotine patch as needed (4) Chronic kidney disease: Code(s): N18.9 - Chronic kidney disease, unspecified Status: Acute Assessment and Plan: On hemodialysis. (5) Bacteremia: Code(s): R78.81 - Bacteremia Status: Acute Assessment and Plan: Staph haemolyticus x2. Likely related to hemodialysis catheter. Repeat cultures negative IV vanc for total of 2 weeks on discharge. This is to be set up at hemodialysis center by Nephrology. If infection returns will need hemodialysis catheter Re new. Patient was not septic on this hospitalization. DS: Summary Hospital Course Hospital Course: See discharge planning diagnoses Time Spent with Patient Time attestation: Total time spent providing and/or coordinating discharge services: Exam Narrative: Patient is laying in bed Const: General: comfortable, no acute distress, well developed, alert, awake and ill appearing Nutritional Appearance: underweight Orientation/consciousness: patient oriented x3 HENMT: Head: normal to inspection, normocephalic and atraumatic Ears: hearing grossly normal bilaterally Face and sinus: normal facial exam Eyes: General: appearance normal, both eyes and all related structures Pupils: Equal, round and reactive pupils present EOM: EOMs intact bilaterally Neck: Neck: full ROM, no lymphadenopathy and no JVD Thyroid: thyroid normal Lymphatic: no lymphadenopathy noted Resp: Effort & Inspection: normal respiratory effort and able to speak in complete sentences Auscultation: clear to auscultation bilaterally and wheezes Cardio: Jugular venous distension: no JVD Rate: regular rate Rhythm: regular rhythm Heart sounds: S1 normal heart sound present and S2 normal heart sound present GI: Inspection: normal to inspection : General: Yes deferred Skin: Rashes: no rashes Wounds: no wounds Neuro: General: patient oriented x3, CN's II-XI intact bilaterally and Unable to assess gait Cranial nerves: Yes CN's II-XII intact bilaterally and Yes Equal, round and reactive pupils present Cognition (Neuro): normal cognition Speech: normal speech Gait exam (Neuro): Normal gait present and Unable to assess gait Motor exam (neuro): 5/5 motor strength present throughout Extrem: General: normal to inspection, full ROM, no joint enlargement and no pedal edema DS: Data Data Completed and Pending Labs on day of discharge: Labs from last 24 hours 03/25/22 03/24/22 03/24/22 07:00 19:56 17:11 Creatinine 5.70 H Estim Creat Clear Calc 10 Estimated GFR 10 L Troponin I 0.020 0.020 03/24/22 14:08 Creatinine Estim Creat Clear Calc Estimated GFR Troponin I 0.018 Preliminary micro results at discharge 03/19/22 22:52 Blood Culture - Preliminary Blood 03/19/22 22:52 Blood Culture - Preliminary Blood Discharge Plan Discharge Attending physician on discharge: Kwasi Garay Consulting providers: Reji Forte Discharging Clinician: Kwasi Garay Patient Disposition: Home, Self-Care Activity: no preference Diet: as tolerated Discharge Instructions: Per Care Coordination Patient is current with [facility] for hemo dialysis treatments Friday
--- NOTE | 2022-03-25 17:15 | PCCCNOTE ---
Addendum entered by Martina Madison RN 03/25/22 17:55: Met with patient he is agreeable for cab home with his son Von to be there to receive him. Cab voucher provided to unit secy Samina and she will call Von when patient is leaving. Addendum entered by Martina Madison RN 03/25/22 17:46: 1731 Phone called received from Von Donahue, patient's son, says that PD came to his house he was out working on his car. Incoming call received from [phone], which matches the number the patient had on a post it note in his pocket. Advised that patient is discharging and will need transportation. Patient's son Von states that he has no way of getting him since both of his trucks are broken and one is in the shop. Advised that we could cab him home but he will need to confirm that he will be there to receive him. Von states that he can't go anywhere since his trucks are broken and he will be at home. Von is agreeable with the plan, Advised that we would call him on this number when he was leaving our building. Von verbalizes understanding. He would like to talk with his Father, walked up to floor and provided phone for patient to talk with his son Von. [employer] back on the line, advises that patient will have discharge instructions and medications with him when he arrives and again we will call this number when he leaving. Original Note: Late entry: Phone call received from Samina on 3 Med Surg, states that patient has a dc order but there are no active numbers in the system and requests assistance from housekeeper caregiver. Called contact in system Von at [phone], rang one time then turned to quick busy signal, no answer no ability to leave a message. Called to home # in system [phone], range one time with quick busy, no answer no ability to leave a message. Met with patient at bedside, he pulled a post it note out of his pocket that had the number [phone], called x2, phone rang and went to , generic there was no name on the , left two messages- requesting that Von call the hospital as soon as possible about his father's discharge. Per discussion with RN Thomas- Orientation has been between 1-3 during admission. Patient states that we won't get his son as he is busy working on his car. 1707 Phone call to [place] [employer] non emergency phone number at [phone], requested wellness check to home address [address] [place] [id number]. Provided dispatch with housekeeper caregiver's number for a return call. Awaiting call back.
[2022-03-25] MEDS: ATORVASTATIN 40 MG TABLET PO (17:44)
== END 2022-03-25 18:10 | disposition home or self-care (01) | DRG 137 ==
LOC: ANHED 17:43 → ANH3MEDSUR 18:12
PROVIDERS: Internal Medicine; Internal Medicine Nephrology; Admitting Provider Student in an Organized Health Care Education/Training Program; Emergency Provider Emergency Medicine; PCP Internal Medicine Infectious Disease; Visit Provider Chiropractor
DX: U07.1 COVID-19 (principal); F17.200 Nicotine dependence, unspecified, uncomplicated; N17.9 Acute kidney failure, unspecified; Z80.1 Family history of malignant neoplasm of trachea, bronchus and lung; G25.1 Drug-induced tremor; N18.6 End stage renal disease; T80.211A Bloodstream infection due to central venous catheter, initial encounter; Y82.8 Other medical devices associated with adverse incidents; Z99.2 Dependence on renal dialysis; F17.210 Nicotine dependence, cigarettes, uncomplicated; Z79.82 Long term (current) use of aspirin; Z79.899 Other long term (current) drug therapy; J43.9 Emphysema, unspecified
CPT/HCPCS: 36415; 51701; 70450; 71045; 71046; 76775; 80048; 80053; 80202; 81001; 82565; 82570; 82948; 83605; 84300; 84484; 85025; 85027; 85610; 85730; 86705; 86706; 87040; 87077; 87186; 87340; 87502; 93005; 94640; 96374; 97116; 97161; 97165; 97530; 99285; A9270; C9803; G0257; G0378; G0379; J1644; J2060; J3370; J7030; U0003; U0005

== ENCOUNTER 2022-03-27 19:56 | Observation (INO) | payer OTHER, SELFPAY ==
[2022-03-27] VITALS (32 sets, daily range): BP systolic 161–212; BP diastolic 78–107; PULSE 86–106; RESP 17–37; TEMP 36.9; O2SAT 95–100
--- NOTE | ~2022-03-27 | XR_ITS ---
EXAMINATION: XR chest 1V portable Exam Date/Time: 03/27/2022 20:10 CDT HISTORY: COUGH,SOB, COVID+ FEW WEEKS AGO HX SMOKER,HTN,COPD Comparison: 03/24/2022. RESULT: Lines, tubes, and devices: Right IJ central venous line terminating in the distal SVC. Left chest pa cer with intact leads. Lungs and pleura: Mid and lower lung reticulations, slightly increased from the prior. Subtle, patch y and focal groundglass opacities in the bilateral lungs. Emphysematous and senescent change. Cardiomediastinal silhouette: Stable cardiomediastinal silhouette. Other: No acute osseous or upper abdominal finding. IMPRESSION: Mild interstitial edema. Subtle patchy groundglass opacities may relate to atelectasis or atypical/vi ral infection. Reviewed, dictated and finalized at location K. IMPRESSION: Mild interstitial edema. Subtle patchy groundglass opacities may relate to atel ectasis or atypical/viral infection.
--- NOTE | 2022-03-27 20:02 | ECG_ITS ---
Measurements Intervals [place] Rate: 89 P: RI: 0 QRS: 60 QRSD: 89 T: 81 QT: 395 QTc: 482 Interpretive Statements SINUS RHYTHM FREQUENT ATRIAL PREMATURE COMPLEXES VOLTAGE CRITERIA FOR LVH BORDERLINE T WAVE ABNORMALITY- HIGH LATERAL LEADS ABNORMAL ECG Electronically Signed On 03-28-2022 6:57:29 CDT by Varun Ashraf D.O.
--- NOTE | 2022-03-27 20:12 | ED.GENADULT ---
HPI - General Adult General Chief complaint: Shortness of Breath/Dyspnea Stated complaint: SOB Time Seen by Provider: 03/27/22 19:57 Source: RN notes reviewed History of Present Illness HPI narrative: Patient presents emerged department from home via EMS for shortness of breath. Patient states he has been having increasing shortness of breath over the past several days states that shortness of breath is worse with exertion. Patient does state he was recently diagnosed with COVID-19 and was recently in the hospital. States he does have history of COPD and still smokes also states he is on dialysis on Friday and Saturdays with last dialysis on Friday he denies any fevers or chills chest pain abdominal pain nausea vomiting or any other symptoms Related Data Home Medications Medication Instructions Recorded Confirmed aspirin 81 mg tablet,delayed 81 mg PO DAILY 03/19/22 03/19/22 release atorvastatin 40 mg tablet 40 mg PO DAILY 03/19/22 03/19/22 clonidine HCl 0.1 mg tablet 0.1 mg PO TID 03/19/22 03/19/22 divalproex 500 mg tablet,extended 500 mg PO BID 03/19/22 03/19/22 release 24 hr famotidine 20 mg tablet 20 mg PO HS 03/19/22 03/19/22 hydralazine 50 mg tablet 100 mg PO TID 03/19/22 03/19/22 isosorbide mononitrate 30 mg PO DAILY 03/19/22 03/19/22 nifedipine 90 mg tablet,extended 90 mg PO DAILY 03/19/22 03/19/22 release oxybutynin chloride 10 mg 10 mg PO HS 03/19/22 03/24/22 tablet,extended release 24 hr sodium bicarbonate 650 mg tablet 650 mg PO TID 03/19/22 03/19/22 albuterol sulfate 90 mcg/actuation 2 puff inhalation Q4H PRN 03/24/22 03/24/22 aerosol inhaler Shortness Of Breath umeclidinium 62.5 mcg/actuation 1 inh inhalation DAILY 03/24/22 03/24/22 blister powder for inhalation (Incruse Ellipta) Allergies Allergy/AdvReac Type Severity Reaction Status Date / Time No Known Allergies Allergy Verified 03/27/22 20:03 Review of Systems Review of Systems: Gen.: Denies fevers or chills ENT: Denies congestion Respiratory: See HPI CV: Denies chest pain or palpitations GI: Denies abdominal pain nausea, emesis or diarrhea reports chronic renal failure dialysis Tuesdays and Friday Musculoskeletal: Denies back pain or muscle pain Neuro: Denies numbness, tingling, weakness or focal weakness Skin: Denies rash Except as documented, all other systems reviewed and negative [facility] Past Medical History Medical History (Updated 03/28/22 @ 02:58 by Steven Nicole DO) COPD exacerbation COVID-19 End stage renal disease Family History Family History (Updated 03/19/22 @ 20:58 by Dania Stuart RN) Father Cancer of lung Mother Heart failure Social History Social History Smoking packs per day: 2 Smoking cigarettes per day: 40.0 Smoking status: Heavy tobacco smoker Alcohol intake: former Substance use: never Spiritual care concerns: No Exam Narrative: APPEARANCE: No acute distress, nontoxic, resting in bed EYES: EOMI HEENT: Normocephalic, atraumatic, OMM RESPIRATORY: No respiratory distress coarse breath sounds throughout the bilateral lung riddle with wheezing in the upper lung riddle CARDIOVASCULAR: Regular rate and rhythm without murmurs rubs or gallops. ABDOMINAL: Soft, nontender, nondistended, no rebound or guarding MUSCULOSKELETAl: Moves all extremities. No clubbing, cyanosis or edema. NEURO: Awake and alert. Following commands, speech normal, no focal deficits SKIN:: Warm, dry. No rashes lesions or abrasions PSYCHIATRIC: Normal affect/mood, Course Course Emergency Course: Reviewed old records Patient states he did not take any of his evening hypertensive medications review of the patient's medication history shows he is on hydralazine 100 mg 3 times a day as well as Catapres 0.1 mg 3 times a day will give both at this time Patient very dyspneic with any attempts at ambulation or walking Disc
[2022-03-27 20:33] LABS: Basophils Absolute Auto 0.1 K/mm3 (0.0-0.1); Basophils Percent Auto 0.9 % (0.2-1.2); Eosinophils Absolute Auto 0.3 K/mm3 (0-0.3); Eosinophils Percent Auto 4.2 % (0-4.4); Hematocrit 29.8 % (42.0-52.0); Hemoglobin 9.6 g/dL (14.0-18.0); Immature Granulocyte Absolute 0.02 K/mm3 (0.00-0.031); Immature Granulocyte Percent A 0.3 % (0-0.5); Lymphocytes Absolute Auto 2.04 K/mm3 (0.9-3.2); Lymphocytes Percent Auto 25.8 % (18.3-44.2); Mean Corpuscular HGB Conc 32.2 g/dl (32-36); Mean Corpuscular Hemoglobin 30.3 pg (26-34); Mean Platelet Volume 10.9 fl (7.4-10.4); Monocytes Percent Auto 12.3 % (2.6-8.5); Neutrophils Absolute Auto 4.5 K/mm3 (1.3-6.7); Neutrophils Percent Auto 56.5 % (45.5-73.1); Platelet Count Result 277 k/mm3 (150-375); Red Blood Count 3.17 M/mm3 (4.6-6.20); Red Cell Distribution Width 14.4 % (11.5-14.5); White Blood Count 7.9 K/mm3 (4.5-10.0)
--- NOTE | 2022-03-27 20:34 | PC.NURSE ---
RN did a walking pulse ox on pt. Pt maintained sat above 94% but was working to breathe and having a hard time. ERp made aware. ERP also made aware of pts BP 199/107
[2022-03-27 20:48] LABS: Partial Thromboplastin Time 26.3 SECONDS (22.3-36.8); Prothrombin Time 12.9 Seconds (11.1-14.7)
[2022-03-27 20:59] LABS: Alanine Aminotransferase 14 U/L (6-50); Alkaline Phosphatase 81 U/L (38-126); Anion Gap 10 mmol/L (8-16); Aspartate Amino Transferase 26 U/L (17-59); Bilirubin,Total 0.3 mg/dL (0.2-1.3); Blood Urea Nitrogen 35 mg/dL (9-20); Calcium 8.5 mg/dL (8.4-10.2); Carbon Dioxide 27 mmol/L (22-30); Chloride 97 mmol/L (98-107); Estimated CRCL calculation 11 ml/min; Estimated Glomerular Filt Rate 12; Glucose 87 mg/dL (65-110); Sodium 134 mmol/L (137-145)
[2022-03-27] MEDS: hydrALAZINE HCL 50 MG TABLET 100 MG PO (23:11)
[2022-03-27] MEDS: methylPREDNISolone SOD SUCC 125 MG VIAL IV PUSH (23:11)
[2022-03-27] MEDS: ALBUTEROL SULFATE NEB 2.5 MG/3 ML INH 5 MG INHALATION (23:12)
[2022-03-27] MEDS: IPRATROPIUM BR 0.02% INH SOLN 0.5 MG/2.5 ML VIAL INHALATION (23:12)
[2022-03-27] MEDS: cloNIDine HCL 0.1 MG TABLET PO (23:15)
[2022-03-28] VITALS (43 sets, daily range): BP systolic 147–183; BP diastolic 65–95; PULSE 70–98; RESP 14–24; TEMP 36.5–36.8; O2SAT 93–100
--- NOTE | 2022-03-28 01:09 | PC.NURSE ---
Pt c/o tremors. States this occurs with home BP medications. ERP made aware.
[2022-03-28 01:39] LABS: Alveolar/Arterial O2 Gradient 37.8 mmHg; Base Excess ABG 0.5 mEq/l (+/-2.0); Carboxyhemoglobin 1.3 % THb (0-2.0); Fractional Inspired Oxygen 21 %; HCO3 ABG 23.3 mEq/l (22.0-26.0); Methemoglobin ABG 0.2 %THb (0-1.5); Oxygen Content ABG 13.8 %vol (16.0-22.0); Oxygen Saturation ABG 96.1 % (95.0-100.0); Oxyhemoglobin 92.7 % THb (90.0-100.0); PCO2 ABG 31.4 mmHg (35.0-45.0); PO2 ABG 74.3 mmHg (80.0-100.0); PO2 FiO2 Ratio Arterial Blood 3.54 %; Reduced Hemoglobin 5.8 %THb (0-5.0); Total Hemoglobin 10.5 g/dL (12.0-18.0); pH ABG 7.489 (7.350-7.450)
[2022-03-28 01:40] LABS: Device ROOM AIR; Site Drawn LEFT RADIAL
[2022-03-28] MEDS: methylPREDNISolone SOD SUCC 125 MG VIAL 60 MG IV PUSH ×3 (06:10→21:38)
--- NOTE | 2022-03-28 08:55 | PM.CNNEP ---
Assessment and Plan Additional Plan 1. The patient has end-stage renal disease. He gets dialysis 3 times a week. He is due today. I have notified the nurse that he needs dialysis. His volume status does not look that bad. He has no swelling in his lungs are fairly clear. His chest x-ray does show patchy ground-glass opacities. I am not sure if this is COVID or fluid. I will try taking some fluid off. Likely he is not short of breath and he does not require oxygen. His potassium is okay and his bicarbonate is okay. 2. The patient has hypertension. His blood pressure is a little bit high. We will try taking some fluid off today and see how he does. We will continue his home blood pressure meds. 3. The patient has renal osteodystrophy. Will check a phosphorus level in the morning. 4. The patient has anemia probably from chronic kidney disease but also COVID may be contributing as well. Will give Epogen with dialysis. 5. His sodium is slightly low due to renal failure. 6. He has hyperlipidemia and is on a statin. History of Present Illness Reason for Consult Consult date: 03/28/22 Chief Complaint Chief complaint: AE COPD, Covid-19, dyspnea History of Present Illness Narrative: Sachin is a very pleasant 66-year-old gentleman who has multiple medical problems including end-stage renal disease on hemodialysis since November with that dialysis catheter, hypertension, hyperlipidemia, who was recently diagnosed with COVID. Mental status changes in her early March and was admitted. He was dialyzed. He improved and was discharged. He felt better at this date at discharge. And felt good at home. on Friday he went to dialysis. He was short of breath that day. They took some fluid off but he still was short of breath at the end of dialysis. He was worse yesterday and came in the hospital last night because of the shortness of breath. Dr. Forte normally takes care of him however he is out of town today. The patient is due for dialysis today. He denies any swelling. Does not think he drank a lot of fluid. He has no fever. He does have a cough which has been the same as what it was all along with the COVID. he has no chest pain. Review of Systems Constitutional: Constitutional: Reports no additional constitutional complaints Eyes: Eyes: Reports no additional eye complaints ENT: Reports system reviewed and no additional complaints, except as documented Cardiovascular: Cardiovascular: Reports no additional cardiovascular complaints Respiratory: Respiratory: Reports no additional respiratory complaints Gastrointestinal: Gastrointestinal: Reports no additional gastrointestinal complaints Genitourinary: Genitourinary: Reports no additional male genitourinary complaints Musculoskeletal: Musculoskeletal: Reports no additional musculoskeletal complaints Integumentary/Breasts: Skin/Breast: Reports system reviewed and no additional complaints, except as docu Neurologic: Reports system reviewed and no additional complaints, except as documented Psychiatric: Psychiatric: Reports no additional psychiatric complaints Endocrine: Endocrine: Reports no additional endocrine complaints PMFSH Past Medical History Medical History COPD exacerbation COVID-19 End stage renal disease Family History Family History Father Cancer of lung Mother Heart failure Social History Social History Smoking packs per day: 2 Smoking cigarettes per day: 40.0 Smoking status: Current every day smoker Tobacco type: cigarettes Alcohol intake: former Substance use: never Spiritual care concerns: No Meds Home Medications and Allergies Home Medications Medication Instructions Recorded Confirmed Type aspirin 81 mg tablet,delayed 81 mg PO DAILY
[2022-03-28] MEDS: IPRATROPIUM BR 0.02% INH SOLN 0.5 MG/2.5 ML VIAL INHALATION ×3 (09:19→20:52)
[2022-03-28] MEDS: ALBUTEROL SULFATE NEB 2.5 MG/3 ML INH 5 MG INHALATION ×3 (09:19→20:52)
--- NOTE | 2022-03-28 12:57 | PM.IMHP ---
H&P: HPI History of Present Illness Date/Time: 03/28/22 12:57 Chief Complaint: Dyspnea with exertion Narrative: 66-year-old male with past medical history significant for current smoker with COPD, end-stage renal disease on hemodialysis Friday, and Friday, recent COVID-19 infection is presenting with dyspnea with exertion. No chest pain or shortness of breath. No nausea, vomiting or diarrhea. No fevers or chills. In the ER, there was concern that he might need oxygen at home. So he was admitted for evaluation of his shortness of breath and dyspnea by PT and respiratory therapy. Review of Systems Review of Systems: 12 point review of systems was assessed and was negative except as noted in the HPI [facility] Past Medical History Medical History COPD exacerbation COVID-19 End stage renal disease Family History Family History Father Cancer of lung Mother Heart failure Social History Social History Smoking packs per day: 2 Smoking cigarettes per day: 40.0 Smoking status: Current every day smoker Tobacco type: cigarettes Alcohol intake: former Substance use: never Spiritual care concerns: No Meds Home Medications and Allergies Home Medications Medication Instructions Recorded Confirmed Type aspirin 81 mg tablet,delayed 81 mg PO DAILY 03/19/22 03/28/22 History release atorvastatin 40 mg tablet 40 mg PO DAILY 03/19/22 03/28/22 History clonidine HCl 0.1 mg tablet 0.1 mg PO TID 03/19/22 03/28/22 History divalproex 500 mg tablet,extended 500 mg PO BID 03/19/22 03/28/22 History release 24 hr famotidine 20 mg tablet 20 mg PO HS 03/19/22 03/28/22 History hydralazine 50 mg tablet 100 mg PO TID 03/19/22 03/28/22 History isosorbide mononitrate 30 mg PO DAILY 03/19/22 03/28/22 History nifedipine 90 mg tablet,extended 90 mg PO DAILY 03/19/22 03/28/22 History release oxybutynin chloride 10 mg 10 mg PO HS 03/19/22 03/28/22 History tablet,extended release 24 hr sodium bicarbonate 650 mg tablet 650 mg PO TID 03/19/22 03/28/22 History albuterol sulfate 90 mcg/actuation 2 puff inhalation Q4H PRN 03/24/22 03/28/22 History aerosol inhaler Shortness Of Breath umeclidinium 62.5 mcg/actuation 1 inh inhalation DAILY 03/24/22 03/28/22 History blister powder for inhalation (Incruse Ellipta) vancomycin 750 mg intravenous 750 mg IV PRN PRN vancomycin 03/25/22 03/28/22 Rx solution protocol 11 days #4 ea Allergies Allergy/AdvReac Type Severity Reaction Status Date / Time No Known Allergies Allergy Verified 03/27/22 20:03 Vital Signs Vital Signs - 24 hr 03/27/22 19:55 03/27/22 20:09 03/27/22 20:33 Temperature 98.4 F Pulse Rate 96 87 90 Respiratory Rate 22 H 20 Blood Pressure 184/107 H Pulse Oximetry 98 99 Oxygen Delivery Room Air 03/27/22 19:59 03/27/22 20:00 03/27/22 20:15 Temperature Pulse Rate 90 93 90 Respiratory Rate 22 H 24 H 24 H Blood Pressure Pulse Oximetry 99 98 100 Oxygen Delivery 03/27/22 20:31 03/27/22 20:45 03/27/22 20:47 Temperature Pulse Rate 92 90 92 Respiratory Rate Blood Pressure 199/107 H 176/98 H Pulse Oximetry 98 98 98 Oxygen Delivery 03/27/22 21:04 03/27/22 21:15 03/27/22 21:16 Temperature Pulse Rate 89 90 89 Respiratory Rate Blood Pressure 169/83 H Pulse Oximetry 96 97 95 Oxygen Delivery 03/27/22 21:36 03/27/22 21:45 03/27/22 23:16 Temperature Pulse Rate 88 Respiratory Rate 30 H Blood Pressure 212/93 H Pulse Oximetry 97 96 95 Oxygen Delivery 03/27/22 23:12 03/27/22 23:22 03/27/22 21:47 Temperature Pulse Rate 89 86 Respiratory Rate 24 H 24 H Blood Pressure Pulse Oximetry 97 Oxygen Delivery 03/27/22 22:00 03/27/22 22:15 03/27/22 22:17 Temperature Pulse Rate 97 Respiratory
[2022-03-29] VITALS (22 sets, daily range): BP systolic 158–202; BP diastolic 81–117; PULSE 60–100; RESP 16–20; TEMP 36.1–37; O2SAT 96–100
[2022-03-29] MEDS: IPRATROPIUM BR 0.02% INH SOLN 0.5 MG/2.5 ML VIAL INHALATION ×3 (02:41→20:44)
[2022-03-29] MEDS: ALBUTEROL SULFATE NEB 2.5 MG/3 ML INH 5 MG INHALATION ×3 (02:42→20:44)
[2022-03-29] MEDS: methylPREDNISolone SOD SUCC 125 MG VIAL 60 MG IV PUSH ×3 (05:29→21:52)
[2022-03-29 06:20] LABS: Basophils Percent Auto 0.1 % (0.2-1.2); Hemoglobin 9.3 g/dL (14.0-18.0); Immature Granulocyte Absolute 0.07 K/mm3 (0.00-0.031); Immature Granulocyte Percent A 0.5 % (0-0.5); Lymphocytes Absolute Auto 0.89 K/mm3 (0.9-3.2); Lymphocytes Percent Auto 6.6 % (18.3-44.2); Mean Corpuscular HGB Conc 32.1 g/dl (32-36); Mean Corpuscular Hemoglobin 30.5 pg (26-34); Mean Corpuscular Volume 95.1 fl (80-100); Mean Platelet Volume 10.7 fl (7.4-10.4); Monocytes Absolute Auto 0.7 K/mm3 (0.1-0.6); Monocytes Percent Auto 5.1 % (2.6-8.5); Neutrophils Absolute Auto 11.8 K/mm3 (1.3-6.7); Neutrophils Percent Auto 87.7 % (45.5-73.1); Platelet Count Result 258 k/mm3 (150-375); Red Blood Count 3.05 M/mm3 (4.6-6.20); Red Cell Distribution Width 14.2 % (11.5-14.5); White Blood Count 13.4 K/mm3 (4.5-10.0)
[2022-03-29 06:43] LABS: Alanine Aminotransferase 14 U/L (6-50); Albumin Level 3.9 g/dL (3.5-5.1); Alkaline Phosphatase 60 U/L (38-126); Anion Gap 11 mmol/L (8-16); Aspartate Amino Transferase 20 U/L (17-59); Bilirubin,Total 0.1 mg/dL (0.2-1.3); Blood Urea Nitrogen 53 mg/dL (9-20); Calcium 8.5 mg/dL (8.4-10.2); Carbon Dioxide 24 mmol/L (22-30); Chloride 98 mmol/L (98-107); Estimated CRCL calculation 8 ml/min; Estimated Glomerular Filt Rate 9; Glucose 138 mg/dL (65-110); Potassium 4.4 mmol/L (3.4-5.0); Sodium 133 mmol/L (137-145)
[2022-03-29] MEDS: SODIUM CHLORIDE 0.9% IV 1,000 ML 200 ML (07:00)
[2022-03-29] MEDS: EPOETIN ALFA-EPBX 10,000 UNITS/ML VIAL 10000 UNITS IV PUSH (09:55)
--- NOTE | 2022-03-29 14:20 | PM.PNNEP ---
Progress Note: A&P Additional Plan 1. The patient has end-stage renal disease. He gets dialysis 3 times a week. He is Getting dialysis today. His blood pressure is a bit high. Take some fluid off. He is not on oxygen. Likely he is not short of breath. His potassium is okay and his bicarbonate is okay. 2. The patient has hypertension. His blood pressure is a little bit high. Will see how it is after dialysis. 3. The patient has renal osteodystrophy. Will check a phosphorus level in the morning. 4. The patient has anemia probably from chronic kidney disease but also COVID may be contributing as well. Will give Epogen with dialysis. 5. His sodium is slightly low due to renal failure. 6. He has hyperlipidemia and is on a statin. Subjective Date/time seen: 03/29/22 08:55am Interval history: Patient is feeling better today. He feels like he cannot urinate. He is on dialysis and tolerating it well. He was seen at 8:55 a.m. blood pressure is a bit generous. We are taking some fluid off of him. Review of Systems Cardiovascular: Cardiovascular: Reports no additional cardiovascular complaints Respiratory: Respiratory: Reports no additional respiratory complaints Gastrointestinal: Gastrointestinal: Reports no additional gastrointestinal complaints Genitourinary: Genitourinary: Reports no additional male genitourinary complaints Exam Narrative: WDWN in NAD skin no rash head ncat lungs clear cor reg no rub abd BS+ nontender and soft ext no edema. Objective Data Vital Signs Vital Signs: Vital Signs - 24 hr 03/28/22 16:08 03/28/22 16:18 03/28/22 20:53 Temperature Pulse Rate 71 73 76 Respiratory Rate 20 20 20 Blood Pressure Pulse Oximetry Oxygen Delivery Oxygen Flow Rate 03/28/22 21:00 03/28/22 22:00 03/28/22 20:00 Temperature 36.8 C Pulse Rate 70 Respiratory Rate 18 Blood Pressure 176/95 H Pulse Oximetry 97 98 98 Oxygen Delivery Nasal Cannula Nasal Cannula Oxygen Flow Rate 1 1 03/29/22 02:44 03/28/22 21:13 03/29/22 03:00 Temperature Pulse Rate 61 79 66 Respiratory Rate 20 20 20 Blood Pressure Pulse Oximetry Oxygen Delivery Oxygen Flow Rate 03/29/22 06:00 03/29/22 08:08 03/29/22 07:40 Temperature 36.2 C L 36.6 C Pulse Rate 75 76 Respiratory Rate 20 16 Blood Pressure 183/87 H 202/113 H Pulse Oximetry 97 97 Oxygen Delivery Nasal Cannula Oxygen Flow Rate 1 03/29/22 07:45 03/29/22 08:15 03/29/22 08:45 Temperature Pulse Rate 77 75 67 Respiratory Rate Blood Pressure 200/111 H 176/96 H 163/81 H Pulse Oximetry Oxygen Delivery Oxygen Flow Rate 03/29/22 09:15 03/29/22 09:45 03/29/22 10:15 Temperature Pulse Rate 75 85 85 Respiratory Rate Blood Pressure 163/82 H 158/93 H 194/112 H Pulse Oximetry Oxygen Delivery Oxygen Flow Rate 03/29/22 10:45 03/29/22 08:00 03/29/22 13:29 Temperature 36.4 C L Pulse Rate 100 99 Respiratory Rate 16 Blood Pressure 173/115 H 161/117 H Pulse Oximetry 96 97 Oxygen Delivery Room Air Oxygen Flow Rate Intake/Output Intake/Output: Intake & Output 03/26/22 03/27/22 03/28/22 03/29/22 23:59 23:59 23:59 23:59 Intake Total 2440 1496 Output Total 300 Balance 2140 1496 Meds/Results Medications: Active Medications Generic Name Dose Route Start Last Admin Trade Name Joshq PRN Reason Stop Dose Admin Albuterol 5 mg 03/28/22 08:00 03/29/22 08:08 Albuterol Sulfate Neb 2.5 Mg/3 Ml Inh INHALATION Not Given Q6HRT ON LICENSE OF [facility] Epoetin Jacques-epbx 10,000 units 03/28/22 17:00 03/28/22 17:13 Epoetin Jacques-Epbx 10,000 Units/Ml Vial IV PUSH Not Given TuTa@1700 DRAGAN Ipratropium [place] 0.5 mg 03/28/22 08:00 03/29/22 08:08 Ipratropium Br 0.02% Inh Soln 0.5 Mg/2.5 Ml Vial INHALATION Not Given Q6HRT ON LICENSE OF [facility] Methylprednisolone Sodium Succinate 60 mg 03/28/22 06:00 03/29/22 14:11 Methylpredni
--- NOTE | 2022-03-29 15:04 | PM.IMPN ---
Progress Note: A&P Assessment and Plan (1) COVID-19: Code(s): U07.1 - COVID-19 Status: Acute Assessment and Plan: Appears asymptomatic, supportive care only (2) COPD exacerbation: Code(s): J44.1 - Chronic obstructive pulmonary disease with (acute) exacerbation Status: Acute Assessment and Plan: Not in exacerbation (3) End stage renal disease: Code(s): N18.6 - End stage renal disease Status: Chronic Assessment and Plan: Appreciate nephrology consultation (4) Bacteremia: Code(s): R78.81 - Bacteremia Status: Acute Assessment and Plan: Continue vancomycin with hemodialysis per Nephrology for bacteremia, end date is April 08 (5) Hypertension: Code(s): I10 - Essential (primary) hypertension Status: Chronic Plan Mild urinary retention noted, straight cath x1, check PVR in 4-6 hours, if greater than 250 mL, will place [place] and consult Urology Subjective Date/time seen: 03/29/22 15:04 Interval history: Patient sitting up in bed, bent over uncomfortable. The he states that his lower abdomen feels very tight and uncomfortable. He feels like he has to urinate but is unable to. No overnight events noted. No chest pain or shortness of breath. No nausea, vomiting or diarrhea. No fevers or chills. Review of Systems Review of Systems: 12 point review of systems was assessed and was negative except as noted in the HPI Exam Narrative: General: No acute distress, alert and oriented per baseline HEENT: Atraumatic, normocephalic, mucous membranes moist CV: Regular rate and rhythm, S1, S2 Lungs: Clear to auscultation bilaterally, no rales or crackles noted, no wheezes, good air entry Abdomen: Tender to palpation, moderate distension, no peritoneal signs Extremities: Normal to inspection Skin: No rashes noted, no lesions or wounds seen Psych: Euthymic, normal affect Objective Data Vital Signs Vital Signs: Vital Signs - 24 hr 03/28/22 16:08 03/28/22 16:18 03/28/22 20:53 Temperature Pulse Rate 71 73 76 Respiratory Rate 20 20 20 Blood Pressure Pulse Oximetry Oxygen Delivery Oxygen Flow Rate 03/28/22 21:00 03/28/22 22:00 03/28/22 20:00 Temperature 98.2 F Pulse Rate 70 Respiratory Rate 18 Blood Pressure 176/95 H Pulse Oximetry 97 98 98 Oxygen Delivery Nasal Cannula Nasal Cannula Oxygen Flow Rate 1 1 03/29/22 02:44 03/28/22 21:13 03/29/22 03:00 Temperature Pulse Rate 61 79 66 Respiratory Rate 20 20 20 Blood Pressure Pulse Oximetry Oxygen Delivery Oxygen Flow Rate 03/29/22 06:00 03/29/22 08:08 03/29/22 07:40 Temperature 97.1 F L 97.8 F Pulse Rate 75 76 Respiratory Rate 20 16 Blood Pressure 183/87 H 202/113 H Pulse Oximetry 97 97 Oxygen Delivery Nasal Cannula Oxygen Flow Rate 1 03/29/22 07:45 03/29/22 08:15 03/29/22 08:45 Temperature Pulse Rate 77 75 67 Respiratory Rate Blood Pressure 200/111 H 176/96 H 163/81 H Pulse Oximetry Oxygen Delivery Oxygen Flow Rate 03/29/22 09:15 03/29/22 09:45 03/29/22 10:15 Temperature Pulse Rate 75 85 85 Respiratory Rate Blood Pressure 163/82 H 158/93 H 194/112 H Pulse Oximetry Oxygen Delivery Oxygen Flow Rate 03/29/22 10:45 03/29/22 08:00 03/29/22 13:29 Temperature 97.5 F L Pulse Rate 100 99 Respiratory Rate 16 Blood Pressure 173/115 H 161/117 H Pulse Oximetry 96 97 Oxygen Delivery Room Air Oxygen Flow Rate 03/29/22 14:20 03/29/22 14:31 Temperature Pulse Rate 65 68 Respiratory Rate 20 20 Blood Pressure Pulse Oximetry Oxygen Delivery Oxygen Flow Rate Intake/Output Intake/Output: Intake & Output 03/26/22 03/27/22 03/28/22 03/29/22 23:59 23:59 23:59 23:59 Intake Total 2440 1496 Output Total 300 Balance 2140 1496 Meds/Results Medications: Active Medications Generic Name Dose Route Start Last Admin Trade
[2022-03-29] MEDS: ACETAMINOPHEN 500 MG TABLET 1000 MG PO (17:26)
[2022-03-30] VITALS (23 sets, daily range): BP systolic 61–174; BP diastolic 46–96; PULSE 60–108; RESP 16–20; TEMP 36.4–37; O2SAT 95–99
[2022-03-30] MEDS: IPRATROPIUM BR 0.02% INH SOLN 0.5 MG/2.5 ML VIAL INHALATION ×3 (03:10→21:03)
[2022-03-30] MEDS: ALBUTEROL SULFATE NEB 2.5 MG/3 ML INH 5 MG INHALATION ×3 (03:10→21:03)
[2022-03-30] MEDS: methylPREDNISolone SOD SUCC 125 MG VIAL 60 MG IV PUSH (05:01)
[2022-03-30 07:13] LABS: Albumin Level 4.2 g/dL (3.5-5.1); Anion Gap 9 mmol/L (8-16); Blood Urea Nitrogen 42 mg/dL (9-20); Calcium 8.6 mg/dL (8.4-10.2); Carbon Dioxide 30 mmol/L (22-30); Chloride 94 mmol/L (98-107); Estimated CRCL calculation 11 ml/min; Estimated Glomerular Filt Rate 12; Glucose 143 mg/dL (65-110); Phosphorus 4.2 mg/dL (2.5-4.5); Potassium 3.9 mmol/L (3.4-5.0); Sodium 133 mmol/L (137-145)
--- NOTE | 2022-03-30 07:45 | PC.NURSE ---
called MD Marrero r/t elevated bp, home o2 eval ordered contacted Shanna Eid from respiratory for home o2 eval. pt to discharge home today possibly per MD Marrero
--- NOTE | 2022-03-30 08:03 | PC.NURSE ---
walk done 03/28/22 at 2pm home o2 eval good until 2pm today per respiratory therapeutist
[2022-03-30] MEDS: UMECLIDINIUM BROMIDE 62.5 MCG ELLIPTA 1 PUFF INHALATION (08:42)
[2022-03-30] MEDS: cloNIDine HCL 0.1 MG TABLET PO ×2 (08:43→17:09)
[2022-03-30] MEDS: ISOSORBIDE MONONITRATE 30 MG TAB.ER.24H PO (08:43)
[2022-03-30] MEDS: hydrALAZINE HCL 50 MG TABLET 100 MG PO ×2 (08:43→17:09)
[2022-03-30] MEDS: DIVALPROEX SODIUM ER 500 MG TAB.24H PO ×2 (08:44→17:09)
[2022-03-30] MEDS: NIFEdipine 30 MG TAB.ER.24 90 MG PO (08:45)
[2022-03-30] MEDS: SODIUM BICARBONATE TAB 650 MG TABLET PO ×3 (08:45→17:09)
--- NOTE | 2022-03-30 09:57 | PM.PNNEP ---
Progress Note: A&P Additional Plan 1. The patient has end-stage renal disease. He gets dialysis 3 times a week. He is getting dialysis today to get back on schedule. He is not on oxygen. Likely he is not short of breath. His potassium is okay and his bicarbonate is okay. 2. The patient has hypertension. His blood pressure is still high. Remove more fluid today. 3. The patient has renal osteodystrophy. Will check a phosphorus level in the morning. 4. The patient has anemia probably from chronic kidney disease but also COVID may be contributing as well. To get EPO with dialysis. 5. His sodium is slightly low due to renal failure. 6. He has hyperlipidemia and is on a statin. Subjective Date/time seen: 03/30/22 09:57 Interval history: Patient feels about the same. Generally weak. Eating okay. Breathing is about the same Review of Systems Constitutional: Constitutional: Reports no additional constitutional complaints Eyes: Eyes: Reports no additional eye complaints ENT: Reports system reviewed and no additional complaints, except as documented Cardiovascular: Cardiovascular: Reports no additional cardiovascular complaints Respiratory: Respiratory: Reports no additional respiratory complaints Gastrointestinal: Gastrointestinal: Reports no additional gastrointestinal complaints Genitourinary: Genitourinary: Reports no additional male genitourinary complaints Musculoskeletal: Musculoskeletal: Reports no additional musculoskeletal complaints Integumentary/Breasts: Skin/Breast: Reports system reviewed and no additional complaints, except as docu Neurologic: Reports system reviewed and no additional complaints, except as documented Psychiatric: Psychiatric: Reports no additional psychiatric complaints Endocrine: Endocrine: Reports no additional endocrine complaints Exam Narrative: WDWN in NAD skin no rash head ncat lungs decreased breath sounds at the bases. cor reg no rub or gallop abd BS+ nontender and soft ext no edema. Objective Data Vital Signs Vital Signs: Vital Signs - 24 hr 03/29/22 10:15 03/29/22 10:45 03/29/22 13:29 Temperature 36.4 C L Pulse Rate 85 100 99 Respiratory Rate 16 Blood Pressure 194/112 H 173/115 H 161/117 H Pulse Oximetry 97 Oxygen Delivery Oxygen Flow Rate 03/29/22 14:20 03/29/22 14:31 03/29/22 11:15 Temperature Pulse Rate 65 68 70 Respiratory Rate 20 20 Blood Pressure 166/87 H Pulse Oximetry Oxygen Delivery Oxygen Flow Rate 03/29/22 11:20 03/29/22 20:46 03/29/22 20:46 Temperature 36.4 C Pulse Rate 88 67 67 Respiratory Rate 16 16 16 Blood Pressure 170/107 H Pulse Oximetry 100 Oxygen Delivery Nasal Cannula Oxygen Flow Rate 1 03/29/22 20:59 03/29/22 21:44 03/29/22 20:00 Temperature 36.1 C L Pulse Rate 98 60 60 Respiratory Rate 16 16 16 Blood Pressure 188/94 H Pulse Oximetry 99 99 Oxygen Delivery Room Air Oxygen Flow Rate 03/30/22 03:12 03/30/22 03:27 03/30/22 05:51 Temperature 36.4 C L Pulse Rate 71 73 73 Respiratory Rate 16 18 16 Blood Pressure 174/87 H Pulse Oximetry 96 Oxygen Delivery Oxygen Flow Rate 03/30/22 08:06 03/30/22 08:12 Temperature Pulse Rate 81 81 Respiratory Rate 18 18 Blood Pressure Pulse Oximetry Oxygen Delivery Oxygen Flow Rate Intake/Output Intake/Output: Intake & Output 03/27/22 03/28/22 03/29/22 03/30/22 23:59 23:59 23:59 23:59 Intake Total 2440 2776 620 Output Total 300 4950 300 Balance 2140 -2174 320 Meds/Results Medications: Active Medications Generic Name Dose Route Start Last Admin Trade Name Freq PRN Reason Stop Dose Admin Acetaminophen 1,000 mg 03/29/22 17:13 03/29/22 17:26 Acetaminophen 500 Mg Tablet PO 1,000 mg Q6H PRN Administration Mild Pain (1-3) or Fever Albuterol 5 mg 03/28/22 08:00 03/30/22 08:04 Albuterol Sulfate Neb 2.5 Mg/3 Ml Inh INHALA
[2022-03-30] MEDS: ATORVASTATIN 40 MG TABLET PO (10:00)
[2022-03-30] MEDS: ASPIRIN 81 MG ENTERIC TABLET PO (10:00)
--- NOTE | 2022-03-30 11:23 | PC.NURSE ---
pt to receive dialysis today.
--- NOTE | 2022-03-30 12:12 | PC.NURSE ---
pt scheduled for dialysis again this afternoon, holding bp pills untill tx current bp 126/78 75
--- NOTE | 2022-03-30 13:49 | PC.NURSE ---
pt at dialysis
--- NOTE | 2022-03-30 14:39 | P.DS_ITS ---
DS: Discharge Diagnosis Discharge Diagnosis (1) COVID-19: Code(s): U07.1 - COVID-19 Status: Acute (2) COPD exacerbation: Code(s): J44.1 - Chronic obstructive pulmonary disease with (acute) exacerbation Status: Acute (3) End stage renal disease: Code(s): N18.6 - End stage renal disease Status: Chronic (4) Bacteremia: Code(s): R78.81 - Bacteremia Status: Acute (5) Hypertension: Code(s): I10 - Essential (primary) hypertension Status: Chronic DS: Summary Time Spent with Patient Time attestation: Total time spent providing and/or coordinating discharge services: DS: Data Data Completed and Pending Labs on day of discharge: Labs from last 24 hours 03/30/22 06:36 Sodium 133 L Potassium 3.9 Chloride 94 L Carbon Dioxide 30 Anion Gap 9 BUN 42 H D Creatinine 4.80 H Estim Creat Clear Calc 11 Estimated GFR 12 L Glucose 143 H Calcium 8.6 Phosphorus 4.2 Albumin 4.2 Discharge Plan Discharge Attending physician on discharge: Susanna aMrrero Consulting providers: Reji Forte Discharging Clinician: Susanna Marrero Patient Disposition: Home, Self-Care Activity: as tolerated Diet: as tolerated Patient Instructions: Antibiotic Form, Chronic Kidney Disease (GEN) Stand Alone Forms: General Discharge Information Follow-up/Referrals: Reji Forte MD [Physician] - PHYSICIAN,PHD INTERN [Primary Care Provider] - Discharge Medications: Continued isosorbide mononitrate 30 mg 30 mg PO DAILY nifedipine 90 mg Tablet Extended Release 90 mg PO DAILY aspirin 81 mg Tablet,Delayed Release (Dr/Ec) 81 mg PO DAILY atorvastatin 40 mg Tablet 40 mg PO DAILY famotidine 20 mg Tablet 20 mg PO HS oxybutynin chloride 10 mg Tablet Extended Release 24hr 10 mg PO HS divalproex 500 mg Tablet Extended Release 24 Hr 500 mg PO BID hydralazine 50 mg Tablet 100 mg PO TID clonidine HCl 0.1 mg Tablet 0.1 mg PO TID sodium bicarbonate 650 mg Tablet 650 mg PO TID albuterol sulfate 90 mcg/actuation HFA aerosol inhaler 2 puff INHALATION Q4H PRN (Reason: Shortness Of Breath) Incruse Ellipta 62.5 mcg/actuation Blister With Device 1 inh INHALATION DAILY vancomycin 750 mg Recon Soln 750 mg IV PRN PRN (Reason: vancomycin protocol) 11 Days Qty: 4 0RF Rx Instructions: Two be given at hemodialysis center. Patient will need 10 more days Date of admission: 03/28/22 02:45 Primary Care Provider: PHYSICIAN,PHD INTERN Admitting Provider: Jyothi Alston Attending physician on admission: Jyothi Alston Condition: Stable
[2022-03-30] MEDS: EPOETIN ALFA-EPBX 10,000 UNITS/ML VIAL 10000 UNITS IV PUSH (14:48)
[2022-03-30] MEDS: SODIUM CHLORIDE 0.9% IV 1,000 ML 999 ML IV CONT (14:49)
--- NOTE | 2022-03-30 16:42 | PC.NURSE ---
bp dropped 121/76 121, dialysis ended early related drop in bp and tremors, Md Nagy informed by dialysis nurse Mone. 3.3L removed today.
--- NOTE | 2022-03-30 16:44 | PC.NURSE ---
called MD Marrero informed of event in dialysis today, pt is suppose to discharge, inquiring if discharge will be canceled r/t event in dialysis.
--- NOTE | 2022-03-30 16:51 | PC.NURSE ---
called and spoke with Md Yakov MD aware of event in dialysis nno at this time.
--- NOTE | 2022-03-30 17:01 | PC.NURSE ---
per MD Nagy pt ok to discharge if bp stable for a couple of hours, possible discharge at 1900.
[2022-03-30] MEDS: ACETAMINOPHEN 500 MG TABLET 1000 MG PO (17:09)
--- NOTE | 2022-03-30 18:44 | PC.NURSE ---
called MD Marrero to report pt's episode in room.
--- NOTE | 2022-03-30 18:45 | PC.NURSE ---
called to pt room pt heading myself in head and yelling and chanting [facility] BY , [facility] vital bp129/73 99% ra hr 108 rr 20, pt didn't respond to this nurse continued to chant.
--- NOTE | 2022-03-30 18:48 | PC.NURSE ---
called Von Donahue to see if he could [facility] pick[facility] pt for discharge
--- NOTE | 2022-03-30 18:53 | PC.NURSE ---
MD Burnham informed, son didn't answer phone, leave messaged about pt discharge, awaiting call back, pt may possible stay the night again r/t no ride home. MD Burnham aware.
[2022-03-30 20:40] LABS: Vancomycin Random 6.9 ug/mL (10-20)
--- NOTE | 2022-03-30 20:56 | PC.NURSE ---
Attempt to reach patient's son, Von, regarding transportation for discharge. Per RN, Von had stated that on patients last visit, patient was sent home via taxi cab. Per house rn, no cab voucher will be issued; family can pay for a cab, send for an uber, or make arrangements for someone to mixing picker tender the patient. Will await callback from Von.
[2022-03-30] MEDS: FAMOTIDINE 20 MG TABLET PO (22:29)
[2022-03-31] VITALS (10 sets, daily range): BP systolic 116–132; BP diastolic 67–80; PULSE 64–108; RESP 16–20; TEMP 36.4; O2SAT 96–98
[2022-03-31] MEDS: ALBUTEROL SULFATE NEB 2.5 MG/3 ML INH 5 MG INHALATION ×2 (02:19→09:05)
[2022-03-31] MEDS: IPRATROPIUM BR 0.02% INH SOLN 0.5 MG/2.5 ML VIAL INHALATION ×2 (02:20→09:05)
[2022-03-31 06:52] LABS: Hematocrit 33.9 % (42.0-52.0); Mean Corpuscular HGB Conc 32.4 g/dl (32-36); Mean Corpuscular Hemoglobin 30.6 pg (26-34); Mean Corpuscular Volume 94.2 fl (80-100); Mean Platelet Volume 10.7 fl (7.4-10.4); Platelet Count Result 275 k/mm3 (150-375); White Blood Count 9.9 K/mm3 (4.5-10.0)
[2022-03-31 07:13] LABS: Albumin Level 3.8 g/dL (3.5-5.1); Anion Gap 7 mmol/L (8-16); Blood Urea Nitrogen 31 mg/dL (9-20); Calcium 8.4 mg/dL (8.4-10.2); Carbon Dioxide 33 mmol/L (22-30); Chloride 94 mmol/L (98-107); Estimated CRCL calculation 14 ml/min; Estimated Glomerular Filt Rate 17; Glucose 96 mg/dL (65-110); Phosphorus 3.2 mg/dL (2.5-4.5); Potassium 3.8 mmol/L (3.4-5.0); Sodium 134 mmol/L (137-145)
[2022-03-31] MEDS: ATORVASTATIN 40 MG TABLET PO (08:36)
[2022-03-31] MEDS: SODIUM BICARBONATE TAB 650 MG TABLET PO ×2 (08:36→12:01)
[2022-03-31] MEDS: hydrALAZINE HCL 50 MG TABLET 100 MG PO ×2 (08:36→12:02)
[2022-03-31] MEDS: NIFEdipine 30 MG TAB.ER.24 90 MG PO (08:36)
[2022-03-31] MEDS: DIVALPROEX SODIUM ER 500 MG TAB.24H PO (08:37)
[2022-03-31] MEDS: ASPIRIN 81 MG ENTERIC TABLET PO (08:37)
[2022-03-31] MEDS: ISOSORBIDE MONONITRATE 30 MG TAB.ER.24H PO (08:37)
[2022-03-31] MEDS: cloNIDine HCL 0.1 MG TABLET PO ×2 (08:37→12:01)
--- NOTE | 2022-03-31 08:45 | PC.NURSE ---
called Von to informed that pt is ok to discharge and needs ride home.
[2022-03-31] MEDS: UMECLIDINIUM BROMIDE 62.5 MCG ELLIPTA 1 PUFF INHALATION (09:08)
--- NOTE | 2022-03-31 09:19 | PC.NURSE ---
per charge nurse Lulu, rehab care assistant called about ride for pt.
--- NOTE | 2022-03-31 11:53 | PM.PNNEP ---
Progress Note: A&P Additional Plan 1.? The patient has end-stage renal disease.? He gets dialysis 3 times a week.? He is due for dialysis on Friday. He is now back on oxygen. Breathing is okay right now. ? His potassium is okay and his bicarbonate is okay. His blood pressure dropped yesterday during dialysis. We discussed that he should limit fluid intake. Excess fluid is what causes some of his high blood pressure and also of some of the shortness of breath. 2.? The patient has hypertension.? Blood pressure is improved running from 120-154 Dr. Larry returns tomorrow. 3.? The patient has renal osteodystrophy.? Will check a phosphorus level in the morning. 4.? The patient has anemia probably from chronic kidney disease but also COVID may be contributing as well.? ? To get EPO with dialysis. 5.? His sodium is slightly low due to renal failure. 6.? He has hyperlipidemia and is on a statin. 7. The patient had a tremor during his low blood pressure. He says this happens at home sometimes. I asked him to check his blood pressure home when this happens. If it happens here he will have the nurse take his blood pressure. Subjective Date/time seen: 03/31/22 11:53 Interval history: The patient wants oxygen at home. I explained that this is determined by how his walking oxygen test goes. He will talk with the nurse. He developed low blood pressure on dialysis yesterday. Dialysis was discontinued and he was given a little fluid in the blood pressure came right back. He had tremors during the low blood pressure. He says that the tremors happened at home occasionally. He says he does have a cough and so I asked him to take his blood pressure when his tremors happened at home. He does have very high blood pressure and is on lots of medication for that but he might need some fine tuning if the blood pressure drops on a non dialysis day. Exam Narrative: WDWN in NAD skin no rash head ncat lungs clear cor reg no rub abd BS+ nontender and soft ext no edema. Objective Data Vital Signs Vital Signs: Vital Signs - 24 hr 03/30/22 12:15 03/30/22 13:40 03/30/22 13:40 Temperature 36.6 C Pulse Rate 75 80 Respiratory Rate 18 16 Blood Pressure 126/78 164/86 H Pulse Oximetry 95 Oxygen Delivery Oxygen Flow Rate 2 03/30/22 13:45 03/30/22 15:15 03/30/22 16:40 Temperature 36.4 C Pulse Rate 74 81 72 Respiratory Rate 18 Blood Pressure 152/90 H 124/74 134/85 Pulse Oximetry Oxygen Delivery Oxygen Flow Rate 03/30/22 14:15 03/30/22 14:45 03/30/22 15:45 Temperature Pulse Rate 75 74 85 Respiratory Rate Blood Pressure 133/81 126/70 119/73 Pulse Oximetry Oxygen Delivery Oxygen Flow Rate 03/30/22 16:15 03/30/22 16:20 03/30/22 16:25 Temperature Pulse Rate 105 H 78 60 Respiratory Rate Blood Pressure 118/96 H 61/46 L 121/76 Pulse Oximetry Oxygen Delivery Oxygen Flow Rate 03/30/22 17:13 03/30/22 18:46 03/30/22 21:05 Temperature Pulse Rate 100 108 H 61 Respiratory Rate 20 16 Blood Pressure 126/86 129/73 Pulse Oximetry 99 Oxygen Delivery Oxygen Flow Rate 03/30/22 21:13 03/30/22 21:14 03/30/22 22:00 Temperature 36.7 C Pulse Rate 69 74 Respiratory Rate 16 18 Blood Pressure 154/81 H Pulse Oximetry 99 98 Oxygen Delivery Nasal Cannula Oxygen Flow Rate 1 03/31/22 02:22 03/31/22 02:31 03/31/22 05:40 Temperature 36.4 C L Pulse Rate 73 74 64 Respiratory Rate 16 16 17 Blood Pressure 132/67 Pulse Oximetry 98 Oxygen Delivery Oxygen Flow Rate 03/31/22 07:44 03/31/22 09:09 03/31/22 09:10 Temperature Pulse Rate 64 85 Respiratory Rate 17 20 Blood Pressure Pulse Oximetry 98 98 Oxygen Delivery Room Air Nasal Cannula Oxygen Flow Rate 1 03/31/22 10:55 03/31/22 10:56 03/31/22 10:57 Temperature Pulse Rate 104 H 108 H 102 H Respiratory Rate Blood Pressure Pulse Oximetry 97 9
--- NOTE | 2022-03-31 12:12 | PC.NURSE ---
spoke with bailey Longoria ok to go home via cab. Awaiting Md Garay to redo discharge orders.
--- NOTE | 2022-03-31 12:48 | PM.DS ---
DS: Admitting Diagnosis Discharge Date 03/31/22 Admitting Diagnosis shortness of breath DS: Discharge Diagnosis Discharge Diagnosis (1) COVID-19: Code(s): U07.1 - COVID-19 Status: Acute (2) COPD exacerbation: Code(s): J44.1 - Chronic obstructive pulmonary disease with (acute) exacerbation Status: Acute (3) End stage renal disease: Code(s): N18.6 - End stage renal disease Status: Chronic (4) Bacteremia: Code(s): R78.81 - Bacteremia Status: Acute (5) Hypertension: Code(s): I10 - Essential (primary) hypertension Status: Chronic DS: Summary Hospital Course Hospital Course: patient was admitted for shortness of breath. Underlying lung disease which includes COPD. He also has end-stage renal disease and has shortness of breath in between dialysis treatments. Nonetheless patient was admitted and had a workup which was unrevealing for any sort of pneumonia Or anything to make him more short of breath. When I saw the patient on day of discharge he was feeling well in breathing okay. He can be discharged. Time Spent with Patient Time attestation: Total time spent providing and/or coordinating discharge services: DS: Data Data Completed and Pending Labs on day of discharge: Labs from last 24 hours 03/31/22 03/31/22 03/30/22 06:31 06:31 19:55 WBC 9.9 RBC 3.60 L Hgb 11.0 L Hct 33.9 L MCV 94.2 MCH 30.6 MCHC 32.4 RDW 14.0 Plt Count 275 MPV 10.7 H Sodium 134 L Potassium 3.8 Chloride 94 L Carbon Dioxide 33 H Anion Gap 7 L BUN 31 H D Creatinine 3.60 H Estim Creat Clear Calc 14 Estimated GFR 17 L Glucose 96 Calcium 8.4 Phosphorus 3.2 Albumin 3.8 Random Vancomycin 6.9 L Discharge Plan Discharge Attending physician on discharge: Susanna Marrero Consulting providers: Reji Forte Discharging Clinician: Susanna Marrero Patient Disposition: Home, Self-Care Activity: as tolerated Diet: as tolerated Patient Instructions: Antibiotic Form, Chronic Kidney Disease (GEN) Stand Alone Forms: General Discharge Information Follow-up/Referrals: Reji Forte MD [Physician] - PHYSICIAN,FORM BUILDER [Primary Care Provider] - Discharge Medications: Continued isosorbide mononitrate 30 mg 30 mg PO DAILY nifedipine 90 mg Tablet Extended Release 90 mg PO DAILY aspirin 81 mg Tablet,Delayed Release (Dr/Ec) 81 mg PO DAILY atorvastatin 40 mg Tablet 40 mg PO DAILY famotidine 20 mg Tablet 20 mg PO HS oxybutynin chloride 10 mg Tablet Extended Release 24hr 10 mg PO HS divalproex 500 mg Tablet Extended Release 24 Hr 500 mg PO BID hydralazine 50 mg Tablet 100 mg PO TID clonidine HCl 0.1 mg Tablet 0.1 mg PO TID sodium bicarbonate 650 mg Tablet 650 mg PO TID albuterol sulfate 90 mcg/actuation HFA aerosol inhaler 2 puff INHALATION Q4H PRN (Reason: Shortness Of Breath) Incruse Ellipta 62.5 mcg/actuation Blister With Device 1 inh INHALATION DAILY vancomycin 750 mg Recon Soln 750 mg IV PRN PRN (Reason: vancomycin protocol) 11 Days Qty: 4 0RF Rx Instructions: Two be given at hemodialysis center. Patient will need 10 more days Date of admission: 03/28/22 02:45 Primary Care Provider: PHYSICIAN,FORM BUILDER Admitting Provider: Jyothi Alston Attending physician on admission: Jyothi Alston Condition: Stable
== END 2022-03-31 12:55 | disposition home or self-care (01) ==
LOC: ANHED 03-28 02:58 → ANH3MEDSUR 03-29 12:28
PROVIDERS: Internal Medicine Nephrology; Admitting Provider Student in an Organized Health Care Education/Training Program; Emergency Provider Emergency Medicine; Visit Provider Chiropractor
DX: U07.1 COVID-19 (principal); J44.1 Chronic obstructive pulmonary disease with (acute) exacerbation; I12.0 Hypertensive chronic kidney disease with stage 5 chronic kidney disease or end stage renal disease; N18.6 End stage renal disease; R78.81 Bacteremia; N25.0 Renal osteodystrophy; D64.9 Anemia, unspecified; E78.5 Hyperlipidemia, unspecified; Z99.2 Dependence on renal dialysis; Z79.82 Long term (current) use of aspirin; Z79.51 Long term (current) use of inhaled steroids; F17.210 Nicotine dependence, cigarettes, uncomplicated
CPT/HCPCS: 36415; 36600; 71045; 80053; 80069; 80202; 82375; 82805; 83050; 84100; 85025; 85027; 85610; 85730; 93005; 94618; 94640; 96365; 96374; 96375; 99285; A9270; G0257; G0378; G0379; J1644; J2930; J3370; J7030; Q5105

== ENCOUNTER 2022-04-03 21:50 | Emergency (ER) | payer OTHER, SELFPAY ==
--- NOTE | ~2022-04-03 | XR_ITS ---
EXAMINATION: XR chest 1V portable DATE: 04/04/2022 03:09 INDICATION: Visual disturbance. TECHNIQUE: A single frontal view of the chest was obtained. COMPARISON: Chest single view 03/27/2022 FINDINGS: There is a diffuse interstitial pattern. No pleural effusion or pneumothorax. The heart siz e is normal. There is a left chest wall pacer with leads in the right atrium and right ventricle. A r ight internal jugular central venous catheter is seen with tip in the superior vena cava. IMPRESSION: 1. Diffuse interstitial pattern with improvement on the right, likely mild pulmonary edema. Reviewed, dictated and finalized at location A. IMPRESSION: 1. Diffuse interstitial pattern with improvement on the right, likely mild pulm onary edema.
--- NOTE | ~2022-04-03 | CT_ITS ---
EXAMINATION: CTA brain carotid DATE: 04/04/2022 01:43 INDICATION: Visual disturbance. TECHNIQUE: Computed tomographic angiography (CTA) of the head was performed without and with 100 mL O mnipaque 300 intravenous contrast. CTA of the neck was performed with intravenous contrast. Automated exposure control and iterative reconstruction technique were employed. The dose-length product was 1 724.55 mGy-cm. Maximum intensity projection and volume rendered 3D-reconstructions were created by judah bailey technologist on a separate workstation. COMPARISON: Head CT 03/19/2022 FINDINGS: HEAD CTA: There is no intracranial hemorrhage, acute infarction, or abnormal intracranial mass lesion . There is an old lacunar infarct in left thalamus. The ventricles are normal in size. There is mild mucosal thickening in the paranasal sinuses. There are old fracture deformities of the nasal bones. T he orbits are normal. The mastoid air cells are normal. Left vertebral artery is dominant. There is n o significant stenosis of basilar artery or the posterior cerebral arteries. There is no significant stenosis of the intracranial internal carotid arteries or anterior or middle cerebral arteries. Anter ior communicating artery is normal. There is no aneurysm. NECK CTA: There is severe emphysema. There are no pathologically enlarged lymph nodes. There is sever e stenosis of proximal right vertebral artery. There is mild stenosis of left common carotid artery. There is severe stenosis of proximal left external carotid artery. There is mild plaque in the proxim al internal carotid arteries. There is 0% stenosis of the proximal right internal carotid artery rela tive to normal distal artery lumen diameter (NASCET criteria). There is 0% stenosis of the proximal l eft internal carotid artery relative to normal distal artery lumen diameter. There is severe cervical spondylosis. IMPRESSION: 1. 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 2. No aneurysm or significant intracranial arterial stenosis. 3. 0% stenosis of the proximal internal carotid arteries relative to normal distal artery lumen diame ters (NASCET criteria). 4. Severe stenosis of proximal right vertebral artery. Reviewed, dictated and finalized at location A. IMPRESSION: 1. 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 2. No aneurysm or significant intracranial arterial stenosis. 3. 0% stenosis of the proximal internal carotid arteries relative to normal dis vance artery lumen diameters (NASCET criteria). 4. Severe stenosis of proximal right vertebral artery.
[2022-04-03 22:02] VITALS: BP 161/83; PULSE 82; RESP 14; TEMP 37; O2SAT 99
--- NOTE | 2022-04-03 22:05 | ECG_ITS ---
Measurements Intervals [place] Rate: 79 P: 79 NH: 131 QRS: 70 QRSD: 85 T: 84 QT: 423 QTc: 486 Interpretive Statements SINUS RHYTHM VOLTAGE CRITERIA FOR LVH BORDERLINE T WAVE ABNORMALITY- HIGH LATERAL LEADS BASELINE WANDER- II, III, AVR, AVL, AVF, V5-V6 BORDERLINE ECG Electronically Signed On 04-04-2022 6:36:14 CDT by Varun Ashraf D.O.
[2022-04-03 22:27] LABS: Basophils Percent Auto 0.3 % (0.2-1.2); Eosinophils Absolute Auto 0.4 K/mm3 (0-0.3); Eosinophils Percent Auto 2.8 % (0-4.4); Hematocrit 28.8 % (42.0-52.0); Hemoglobin 9.3 g/dL (14.0-18.0); Immature Granulocyte Absolute 0.07 K/mm3 (0.00-0.031); Immature Granulocyte Percent A 0.6 % (0-0.5); Lymphocytes Percent Auto 17.1 % (18.3-44.2); Mean Corpuscular HGB Conc 32.3 g/dl (32-36); Mean Corpuscular Hemoglobin 30.8 pg (26-34); Mean Corpuscular Volume 95.4 fl (80-100); Mean Platelet Volume 9.7 fl (7.4-10.4); Monocytes Absolute Auto 1.5 K/mm3 (0.1-0.6); Monocytes Percent Auto 12.5 % (2.6-8.5); Neutrophils Absolute Auto 8.2 K/mm3 (1.3-6.7); Neutrophils Percent Auto 66.7 % (45.5-73.1); Platelet Count Result 293 k/mm3 (150-375); Red Blood Count 3.02 M/mm3 (4.6-6.20); Red Cell Distribution Width 14.8 % (11.5-14.5); White Blood Count 12.3 K/mm3 (4.5-10.0)
[2022-04-03 22:39] LABS: INR 1.1; Prothrombin Time 13.4 Seconds (11.1-14.7)
[2022-04-03 22:40] LABS: Partial Thromboplastin Time 32.1 SECONDS (22.3-36.8)
[2022-04-03 22:44] LABS: Alanine Aminotransferase 16 U/L (6-50); Albumin Level 3.6 g/dL (3.5-5.1); Alkaline Phosphatase 69 U/L (38-126); Anion Gap 6 mmol/L (8-16); Aspartate Amino Transferase 26 U/L (17-59); Bilirubin,Total 0.4 mg/dL (0.2-1.3); Blood Urea Nitrogen 38 mg/dL (9-20); Calcium 8.2 mg/dL (8.4-10.2); Carbon Dioxide 29 mmol/L (22-30); Chloride 98 mmol/L (98-107); Estimated Glomerular Filt Rate 12; Glucose 84 mg/dL (65-110); Potassium 3.6 mmol/L (3.4-5.0); Sodium 133 mmol/L (137-145)
[2022-04-04 02:08] VITALS: BP 120/68; PULSE 71; RESP 18; O2SAT 99
[2022-04-04 02:23] LABS: Appearance Urine Clear (Clear); Bilirubin Urine Negative (Negative); Blood Urine Negative (Negative); Color Urine Yellow (Yellow); Glucose Urine UA Negative (Negative); Ketones Urine Negative (Negative); Leukocyte Esterase Ur Negative LEU/UL (Negative); Nitrate Urine Negative (Negative); Protein Urine 2+ mg/dL (Negative); Urobilinogen Urine 0.2 mg/dL (<2.0)
[2022-04-04 02:29] LABS: RBC Urine 0-2 /hpf (0-2); WBC Urine 0-3 /hpf
[2022-04-04 02:30] LABS: Add Urine Microscopic? YES
--- NOTE | 2022-04-04 02:39 | ED.GENADULT ---
HPI - General Adult General Chief complaint: Eye Problems Stated complaint: intermittent vision changes, diff urinating Time Seen by Provider: 04/04/22 01:05 History of Present Illness HPI narrative: Patient is a 66-year-old male who presents ER with reports of difficulty seeing. Reports his vision goes dark intermittently and last for seconds at a time. He did inform EMS that this mainly occurs when he closes his eyes. Patient has no reports of weakness in the arms or legs. He has no double vision or blurred vision when his vision is clear. Patient keeps trying to go to sleep during taking of the history and examination. Should also be noted that patient reported decreased urination earlier however he is on hemodialysis and is due for dialysis today. Related Data Home Medications Medication Instructions Recorded Confirmed aspirin 81 mg tablet,delayed 81 mg PO DAILY 03/19/22 03/28/22 release atorvastatin 40 mg tablet 40 mg PO DAILY 03/19/22 03/28/22 clonidine HCl 0.1 mg tablet 0.1 mg PO TID 03/19/22 03/28/22 divalproex 500 mg tablet,extended 500 mg PO BID 03/19/22 03/28/22 release 24 hr famotidine 20 mg tablet 20 mg PO HS 03/19/22 03/28/22 hydralazine 50 mg tablet 100 mg PO TID 03/19/22 03/28/22 isosorbide mononitrate 30 mg PO DAILY 03/19/22 03/28/22 nifedipine 90 mg tablet,extended 90 mg PO DAILY 03/19/22 03/28/22 release oxybutynin chloride 10 mg 10 mg PO HS 03/19/22 03/28/22 tablet,extended release 24 hr sodium bicarbonate 650 mg tablet 650 mg PO TID 03/19/22 03/28/22 albuterol sulfate 90 mcg/actuation 2 puff inhalation Q4H PRN 03/24/22 03/28/22 aerosol inhaler Shortness Of Breath umeclidinium 62.5 mcg/actuation 1 inh inhalation DAILY 03/24/22 03/28/22 blister powder for inhalation (Incruse Ellipta) Allergies Allergy/AdvReac Type Severity Reaction Status Date / Time No Known Allergies Allergy Verified 03/27/22 20:03 [facility] Past Medical History Medical History (Updated 04/04/22 @ 05:15 by Gab Baez MD) COPD exacerbation COVID-19 End stage renal disease Hypertension Surgical History Surgical History (Updated 04/04/22 @ 02:42 by Gab Baez MD) History of percutaneous coronary intervention Iliac stent. Cardiac stents. Family History Family History Father Cancer of lung Mother Heart failure Social History Social History Smoking packs per day: 2 Smoking cigarettes per day: 40.0 Smoking status: Current every day smoker Tobacco type: cigarettes Alcohol intake: former Substance use: never Spiritual care concerns: No Exam Narrative: GENERAL: Chronically ill-appearing, well-nourished, and in no acute distress. HEAD: Normocephalic, atraumatic. EYES: PERRLA and EOMI. no abnormality in peripheral vision. Patient reports no visual deficit at this time. ENT: Mucous membranes moist. CHEST: Clear to auscultation. No respiratory distress. HEART: Regular rate and rhythm. Normal peripheral pulses. ABDOMEN: Soft, nontender, nondistended. EXTREMITIES: Normal range of motion. No edema. SKIN: Warm, dry, no rash. NEURO: No focal deficits. No upper or lower extremity drift. Count #12 intact. Alert and oriented x3. PSYCH: Normal mood and affect. Course Course Emergency Course: Patient resting comfortably in the ER throughout the duration of his stay. No abnormal neurologic issues while here. CTA without critical stenosis or blockage. I discussed with patient that he should go to his scheduled dialysis today as he needs to get the contrast dialyzed off. He is verbalized understanding of this. He will be discharged. Vital Signs Vital signs: Vital Signs Temperature 98.6 F 04/03/22 22:02 Pulse Rate 82 04/03/22 22:02 Respiratory Rate 14 04/03/22 22:02 Blood Pressure 161/83 H 04/03/22 22:02 Pulse Oximetry 99 04/03/22 22:02 Oxygen
[2022-04-04 04:10] VITALS: BP 140/95; PULSE 68; RESP 20; O2SAT 98
[2022-04-04 04:39] VITALS: BP 138/91; PULSE 60; RESP 18; O2SAT 99
[2022-04-04 06:04] VITALS: BP 150/86; PULSE 60; RESP 18; O2SAT 100
== END 2022-04-04 05:57 | disposition home or self-care (01) ==
PROVIDERS: Emergency Provider Emergency Medicine
DX: H53.9 Unspecified visual disturbance (principal); I12.0 Hypertensive chronic kidney disease with stage 5 chronic kidney disease or end stage renal disease; N18.6 End stage renal disease; F17.210 Nicotine dependence, cigarettes, uncomplicated; Z79.82 Long term (current) use of aspirin
CPT/HCPCS: 36415; 70496; 70498; 71045; 80053; 81001; 85025; 85610; 85730; 93005; 99284; Q9967

== ENCOUNTER 2022-04-23 17:30 | Emergency (ER) | payer OTHER, SELFPAY ==
[2022-04-23] VITALS (10 sets, daily range): BP systolic 160–204; BP diastolic 80–109; PULSE 79–103; RESP 18; O2SAT 97–100
--- NOTE | ~2022-04-23 | CT_ITS ---
EXAMINATION: CT brain wo con DATE: 04/23/2022 19:54 INDICATION: headache . TECHNIQUE: Computed tomography (CT) of the head was performed without intravenous contrast. The mA wa s adjusted according to patient size. Iterative reconstruction technique was employed. The dose-lengt h product was 605.33 mGy-cm. COMPARISON: 04/04/2022 FINDINGS: No acute intracranial hemorrhage or extra-axial fluid collection. No hydrocephalus, mass, or herniation. No acute ischemic infarct. Unremarkable dural venous sinus attenuation. No acute osseous abnormality. Mild mucosal thickening in the ethmoid air cells, otherwise the aerated spaces are clear. Mild atrophy and chronic white matter change. Old focal left thalamic infarct. IMPRESSION: No acute intracranial process. Reviewed, dictated and finalized at location K.
--- NOTE | ~2022-04-23 | CT_ITS ---
EXAMINATION: CT abdomen pelvis wo con DATE: 04/23/2022 18:27 INDICATION: sbo ? TECHNIQUE: Computed tomography (CT) of the abdomen and pelvis was performed without intravenous contr ast. Automated exposure control and iterative reconstruction technique were employed. The dose-length product was 200.86 mGy-cm. COMPARISON: None. FINDINGS: Motion limited examination. Lower thorax: Severe emphysematous changes. Incompletely visualized pacing wires. Coronary and mitral calcification. Aortic ectasia. Liver: Normal. Biliary/Gallbladder: Gallbladder is normal. No bile duct dilation. Pancreas: No mass or duct dilation. Spleen: Normal. Adrenals:Left adrenal adenoma. Kidneys: Bilateral atrophy. No stone or hydronephrosis. GI tract: No small or large bowel dilation. Normal appendix. Prominent soft tissue density at the dis vance rectum/anus. The rectum is dilated to 5.6 cm by formed stool. Mesentery/Peritoneum: No ascites, mass, or free air. Retroperitoneum: No mass. Atherosclerotic abdominal aortic and/or arterial calcifications. Right bernie c stent. Pelvis: Bladder wall thickening, likely due to outlet compromise from mild prostatomegaly. Soft Tissues: Soft tissues and body wall unremarkable. Bones: No acute osseous finding. IMPRESSION: No CT evidence of small bowel obstruction. Possible anorectal soft tissue mass. Possible fecal impact ion. Reviewed, dictated and finalized at location K. IMPRESSION: No CT evidence of small bowel obstruction. Possible anorectal soft tissue mass. Possible fecal impaction.
[2022-04-23 18:06] LABS: Basophils Absolute Auto 0.1 K/mm3 (0.0-0.1); Basophils Percent Auto 0.8 % (0.2-1.2); Hematocrit 34.6 % (42.0-52.0); Hemoglobin 11.2 g/dL (14.0-18.0); Immature Granulocyte Absolute 0.07 K/mm3 (0.00-0.031); Immature Granulocyte Percent A 0.5 % (0-0.5); Lymphocytes Absolute Auto 0.63 K/mm3 (0.9-3.2); Lymphocytes Percent Auto 4.4 % (18.3-44.2); Mean Corpuscular HGB Conc 32.4 g/dl (32-36); Mean Corpuscular Hemoglobin 30.8 pg (26-34); Mean Corpuscular Volume 95.1 fl (80-100); Mean Platelet Volume 9.8 fl (7.4-10.4); Monocytes Absolute Auto 0.6 K/mm3 (0.1-0.6); Monocytes Percent Auto 4.4 % (2.6-8.5); Neutrophils Absolute Auto 12.8 K/mm3 (1.3-6.7); Neutrophils Percent Auto 89.9 % (45.5-73.1); Platelet Count Result 326 k/mm3 (150-375); Red Blood Count 3.64 M/mm3 (4.6-6.20); Red Cell Distribution Width 15.4 % (11.5-14.5); White Blood Count 14.2 K/mm3 (4.5-10.0)
[2022-04-23] MEDS: SODIUM CHLORIDE 0.9% IV 1,000 ML 150 ML IV CONT (18:47)
[2022-04-23] MEDS: ONDANSETRON INJ 4 MG/2 ML VIAL IV PUSH ×2 (18:48→19:37)
[2022-04-23 18:51] LABS: Alanine Aminotransferase 19 U/L (6-50); Albumin Level 4.8 g/dL (3.5-5.1); Alkaline Phosphatase 79 U/L (38-126); Anion Gap 11 mmol/L (8-16); Aspartate Amino Transferase 42 U/L (17-59); Bilirubin,Total 0.6 mg/dL (0.2-1.3); Blood Urea Nitrogen 15 mg/dL (9-20); Calcium 9.6 mg/dL (8.4-10.2); Carbon Dioxide 34 mmol/L (22-30); Chloride 92 mmol/L (98-107); Estimated CRCL calculation 20 ml/min; Estimated Glomerular Filt Rate 26; Glucose 159 mg/dL (65-110); Lipase 114 U/L (23-300); Sodium 137 mmol/L (137-145)
[2022-04-23 19:16] LABS: Appearance Urine Clear (Clear); Bilirubin Urine Negative (Negative); Blood Urine Negative (Negative); Color Urine Yellow (Yellow); Glucose Urine UA Negative (Negative); Ketones Urine Negative (Negative); Leukocyte Esterase Ur Negative LEU/UL (Negative); Nitrate Urine Negative (Negative); Protein Urine 3+ mg/dL (Negative); Specific Grav Ur 1.015 (1.001-1.035); Urobilinogen Urine 0.2 mg/dL (<2.0); pH Urine 8.5 (5.0-9.0)
[2022-04-23 19:19] LABS: RBC Urine 0-2 /hpf (0-2); Squamous Epithelial Cell Urine Rare /hpf (Few); WBC Urine 0-3 /hpf
[2022-04-23 19:21] LABS: Add Urine Microscopic? YES
[2022-04-23] MEDS: MORPHINE SULFATE (*CRX) 4 MG/ML INJ IV PUSH (19:37)
[2022-04-23] MEDS: hydrALAZINE HCL 20 MG/ML VIAL 10 MG IV PUSH (19:42)
[2022-04-23] MEDS: HYDROmorphone HCL INJ (*CRX) 1 MG/ML SYR 0.5 MG IV PUSH (20:17)
--- NOTE | 2022-04-23 21:13 | ED.GENADULT ---
HPI - General Adult General Chief complaint: Nausea/Vomiting/Diarrhea Stated complaint: Hypertension, N/V Time Seen by Provider: 04/23/22 18:06 Source: patient Mode of arrival: EMS Limitations: no limitations History of Present Illness HPI narrative: 66-year-old with a history of hypertension, ESRD on dialysis here with complaints of nausea, vomiting, headache and abdominal pain for past few hours. Patient states that he developed headache soon after he finished dialysis. He denies any chest pain or shortness of breath. Onset (ago): hour(s) (2) Location: head and abdomen Severity: moderate Severity scale (1-10): 8 Quality: aching Pain Consistency: constant Relieving factors: none Exacerbating factors: none Associated symptoms: nausea/vomiting Related Data Home Medications Medication Instructions Recorded Confirmed aspirin 81 mg tablet,delayed 81 mg PO DAILY 03/19/22 03/28/22 release atorvastatin 40 mg tablet 40 mg PO DAILY 03/19/22 03/28/22 clonidine HCl 0.1 mg tablet 0.1 mg PO TID 03/19/22 03/28/22 divalproex 500 mg tablet,extended 500 mg PO BID 03/19/22 03/28/22 release 24 hr famotidine 20 mg tablet 20 mg PO HS 03/19/22 03/28/22 hydralazine 50 mg tablet 100 mg PO TID 03/19/22 03/28/22 isosorbide mononitrate 30 mg PO DAILY 03/19/22 03/28/22 nifedipine 90 mg tablet,extended 90 mg PO DAILY 03/19/22 03/28/22 release oxybutynin chloride 10 mg 10 mg PO HS 03/19/22 03/28/22 tablet,extended release 24 hr sodium bicarbonate 650 mg tablet 650 mg PO TID 03/19/22 03/28/22 albuterol sulfate 90 mcg/actuation 2 puff inhalation Q4H PRN 03/24/22 03/28/22 aerosol inhaler Shortness Of Breath umeclidinium 62.5 mcg/actuation 1 inh inhalation DAILY 03/24/22 03/28/22 blister powder for inhalation (Incruse Ellipta) Allergies Allergy/AdvReac Type Severity Reaction Status Date / Time No Known Allergies Allergy Verified 03/27/22 20:03 Review of Systems Review of Systems: All systems reviewed & are unremarkable except as noted in HPI and below Constitutional: Constitutional: Reports no additional constitutional complaints Eyes: Eyes: Reports no additional eye complaints ENT: Reports system reviewed and no additional complaints, except as documented Cardiovascular: Cardiovascular: Reports no additional cardiovascular complaints Respiratory: Respiratory: Reports no additional respiratory complaints Gastrointestinal: Gastrointestinal: Reports as per HPI Musculoskeletal: Musculoskeletal: Reports no additional musculoskeletal complaints Integumentary/Breasts: Skin/Breast: Reports system reviewed and no additional complaints, except as docu Neurologic: Reports system reviewed and no additional complaints, except as documented Psychiatric: Psychiatric: Reports no additional psychiatric complaints PMFSH Past Medical History Medical History COPD exacerbation COVID-19 End stage renal disease Hypertension Surgical History Surgical History History of percutaneous coronary intervention Iliac stent. Cardiac stents. Family History Family History Father Cancer of lung Mother Heart failure Social History Social History Smoking packs per day: 2 Smoking cigarettes per day: 40.0 Smoking status: Current every day smoker Tobacco type: cigarettes Alcohol intake: former Substance use: never Spiritual care concerns: No Exam Narrative: GENERAL: Well-appearing, well-nourished, and in no acute distress. HEAD: Normocephalic, atraumatic. EYES: PERRLA and EOMI. NECK: Supple. CHEST: Clear to auscultation. No respiratory distress. HEART: Regular rate and rhythm. No murmur heard. Normal peripheral pulses. ABDOMEN: Soft, nontender, nondistended, normal active bowel sounds. EXTREMITIES: No
--- NOTE | 2022-04-23 21:43 | PC.NURSE ---
called [facility] for transport. ETA 2330 - midnight.
--- NOTE | 2022-04-24 00:05 | PC.NURSE ---
called [facility] for ETA update. ETA 15 minutes
--- NOTE | 2022-04-24 00:18 | PC.NURSE ---
[facility] here
[2022-04-24 00:21] VITALS: PULSE 85; RESP 16; O2SAT 98
[2022-04-24 00:27] VITALS: BP 183/99; PULSE 105; RESP 20; O2SAT 97
== END 2022-04-24 00:27 | disposition home or self-care (01) ==
PROVIDERS: Emergency Medicine; Emergency Provider Family Medicine
DX: R11.2 Nausea with vomiting, unspecified (principal); I12.0 Hypertensive chronic kidney disease with stage 5 chronic kidney disease or end stage renal disease; R51.9 Headache, unspecified; N18.6 End stage renal disease; Z99.2 Dependence on renal dialysis; Z86.16 Personal history of COVID-19; F17.210 Nicotine dependence, cigarettes, uncomplicated
CPT/HCPCS: 36415; 70450; 74176; 80053; 81001; 83690; 85025; 96361; 96374; 96375; 96376; 99284; J0360; J1170; J2270; J2405; J7030

== ENCOUNTER 2022-04-24 01:03 | Observation (INO) | payer OTHER, SELFPAY ==
[2022-04-24] VITALS (12 sets, daily range): BP systolic 137–210; BP diastolic 66–108; PULSE 68–93; RESP 16–24; TEMP 36.4–36.9; O2SAT 95–98; BMI 18.2
--- NOTE | ~2022-04-24 | XR_ITS ---
EXAMINATION: XR chest 2V DATE: 04/24/2022 04:36 INDICATION: Chest pain. TECHNIQUE: Frontal and lateral views of the chest were obtained. COMPARISON: Chest single view 04/04/2022, CT abdomen and pelvis 04/23/2022 FINDINGS: There are lucencies in the lungs, consistent with emphysema. A calcified left lung nodule a nd calcified subcarinal lymph nodes are consistent with old granulomatous disease. There is no pneumo uarelio, pleural effusion, or pneumothorax. The heart size is normal. There is a left chest wall pacer wi th leads in the right atrium and right ventricle. A right internal jugular central venous catheter is seen with tip in the superior vena cava. IMPRESSION: 1. Emphysema. Reviewed, dictated and finalized at location A. IMPRESSION: 1. Emphysema.
--- NOTE | 2022-04-24 02:54 | ECG_ITS ---
Measurements Intervals [place] Rate: 80 P: [place]: 113 QRS: 74 QRSD: 98 T: 83 QT: 415 QTc: 481 Interpretive Statements SINUS RHYTHM WITH SHORT [place]V INTERVAL AND PREMATURE ATRIAL CONTRACTIONS AND ECTOPIC ATRIAL BEATS VOLTAGE CRITERIA FOR LVH MINIMAL ST DEPRESSION [0.025+ mV ST DEPRESSION] BORDERLINE ECG COMPARED TO ECG 04/03/2022 22:10:29 PREMATURE ATRIAL CONTRACTIONS PRESENT Electronically Signed On 04-24-2022 12:36:42 CDT by Jewel Payton M.D.
[2022-04-24] MEDS: ACETAMINOPHEN 325 MG TABLET 650 MG PO (03:20)
[2022-04-24] MEDS: hydrALAZINE HCL 50 MG TABLET 100 MG PO ×3 (03:20→18:07)
[2022-04-24] MEDS: cloNIDine HCL 0.1 MG TABLET PO ×3 (03:21→18:08)
[2022-04-24 04:05] LABS: Troponin I 0.039 ng/mL (0.000-0.034)
--- NOTE | 2022-04-24 04:08 | ED.GENADULT ---
HPI - General Adult General Chief complaint: Recheck/Abnormal Lab/Rx Stated complaint: ELEVATED BLOOD PRESSURE Time Seen by Provider: 04/24/22 02:24 History of Present Illness HPI narrative: Patient is a 66-year-old male who presents to the ER with multiple complaints. Patient was at dialysis yesterday when he developed headache upon ending. He also reports he has been having abdominal pain as well as nausea and vomiting. He was evaluated in the emergency room and CT scans showed no acute process in the abdomen other than possible fecal impaction and a and a rectal mass. CT scan of the head was negative as well. Patient did not report they had chest pain at that time. Patient was about to be transferred home when it was noted that his blood pressures were significantly elevated and he is reporting chest discomfort. Patient was checked back in. He reports he has been having chest pain since his dialysis as well. Its nonradiating. Central and cannot describe quality. Patient reports that he has not taken any of his antihypertensives since before dialysis because when he is tried to or otherwise he has vomited. Related Data Home Medications Medication Instructions Recorded Confirmed aspirin 81 mg tablet,delayed 81 mg PO DAILY 03/19/22 03/28/22 release atorvastatin 40 mg tablet 40 mg PO DAILY 03/19/22 03/28/22 clonidine HCl 0.1 mg tablet 0.1 mg PO TID 03/19/22 03/28/22 divalproex 500 mg tablet,extended 500 mg PO BID 03/19/22 03/28/22 release 24 hr famotidine 20 mg tablet 20 mg PO HS 03/19/22 03/28/22 hydralazine 50 mg tablet 100 mg PO TID 03/19/22 03/28/22 isosorbide mononitrate 30 mg PO DAILY 03/19/22 03/28/22 nifedipine 90 mg tablet,extended 90 mg PO DAILY 03/19/22 03/28/22 release oxybutynin chloride 10 mg 10 mg PO HS 03/19/22 03/28/22 tablet,extended release 24 hr sodium bicarbonate 650 mg tablet 650 mg PO TID 03/19/22 03/28/22 albuterol sulfate 90 mcg/actuation 2 puff inhalation Q4H PRN 03/24/22 03/28/22 aerosol inhaler Shortness Of Breath umeclidinium 62.5 mcg/actuation 1 inh inhalation DAILY 03/24/22 03/28/22 blister powder for inhalation (Incruse Ellipta) Allergies Allergy/AdvReac Type Severity Reaction Status Date / Time No Known Allergies Allergy Verified 03/27/22 20:03 Review of Systems Review of Systems: All systems reviewed & are unremarkable except as noted in HPI and below Constitutional: Constitutional: Denies chills, Denies fatigue and Denies fever(s) ENT: Denies nasal congestion and Denies sore throat Cardiovascular: Cardiovascular: Reports chest pain, Denies rapid heart rate and Denies radiating jaw, neck or arm pain Respiratory: Respiratory: Denies cough, Denies dyspnea and Denies wheezing Gastrointestinal: Gastrointestinal: Reports abdominal pain, Reports nausea and Reports vomiting Neurologic: Denies syncope, Reports headache(s), Denies focal weakness and Denies numbness PMFSH Past Medical History Medical History COPD exacerbation COVID-19 End stage renal disease Hypertension Surgical History Surgical History History of percutaneous coronary intervention Iliac stent. Cardiac stents. Family History Family History Father Cancer of lung Mother Heart failure Social History Social History Smoking packs per day: 2 Smoking cigarettes per day: 40.0 Smoking status: Current every day smoker Tobacco type: cigarettes Alcohol intake: never Substance use: never Spiritual care concerns: No Exam Narrative: GENERAL: Well-appearing, well-nourished, and in no acute distress. HEAD: Normocephalic, atraumatic. EYES: PERRL and EOMI. ENT: Mucous membranes moist. CHEST: Clear to auscultation. No respiratory distress. HEART: Regular rate and rhythm.
[2022-04-24] MEDS: ASPIRIN 81 MG CHEWABLE TABLET 324 MG PO (04:36)
--- NOTE | 2022-04-24 06:42 | ADMGEN ---
This patient, Sachin Donahue, was admitted to IMU Room 201-01 on 04/24/2022 at 0635. Patient/family oriented to hospital policies and general routines including ID bracelet, bed and alarms, visiting hours, pain management, procedures, bathroom and other care routines, personal items, smoking policy, room service/diet, and visiting hours. Information on how to activate the Rapid Response Team has been discussed. Patient/Family are encouraged to report perceived risks to care and to ask questions if they do not understand what they are told or what they should do.
[2022-04-24 13:08] LABS: Basophils Absolute Auto 0.1 K/mm3 (0.0-0.1); Basophils Percent Auto 1.2 % (0.2-1.2); Eosinophils Absolute Auto 0.3 K/mm3 (0-0.3); Eosinophils Percent Auto 3.5 % (0-4.4); Hematocrit 33.4 % (42.0-52.0); Hemoglobin 10.6 g/dL (14.0-18.0); Immature Granulocyte Absolute 0.02 K/mm3 (0.00-0.031); Immature Granulocyte Percent A 0.2 % (0-0.5); Lymphocytes Absolute Auto 1.78 K/mm3 (0.9-3.2); Lymphocytes Percent Auto 22.1 % (18.3-44.2); Mean Corpuscular HGB Conc 31.7 g/dl (32-36); Mean Corpuscular Hemoglobin 30.8 pg (26-34); Mean Corpuscular Volume 97.1 fl (80-100); Mean Platelet Volume 9.9 fl (7.4-10.4); Monocytes Absolute Auto 0.7 K/mm3 (0.1-0.6); Monocytes Percent Auto 9.2 % (2.6-8.5); Neutrophils Absolute Auto 5.1 K/mm3 (1.3-6.7); Neutrophils Percent Auto 63.8 % (45.5-73.1); Platelet Count Result 319 k/mm3 (150-375); Red Blood Count 3.44 M/mm3 (4.6-6.20); Red Cell Distribution Width 15.9 % (11.5-14.5); White Blood Count 8.1 K/mm3 (4.5-10.0)
[2022-04-24 13:21] LABS: Alanine Aminotransferase 14 U/L (6-50); Albumin Level 4.2 g/dL (3.5-5.1); Alkaline Phosphatase 73 U/L (38-126); Anion Gap 12 mmol/L (8-16); Aspartate Amino Transferase 25 U/L (17-59); Bilirubin,Total 0.4 mg/dL (0.2-1.3); Blood Urea Nitrogen 27 mg/dL (9-20); Calcium 9.1 mg/dL (8.4-10.2); Carbon Dioxide 33 mmol/L (22-30); Chloride 91 mmol/L (98-107); Estimated CRCL calculation 11 ml/min; Estimated Glomerular Filt Rate 13; Glucose 90 mg/dL (65-110); Potassium 4.4 mmol/L (3.4-5.0); Sodium 136 mmol/L (137-145)
[2022-04-24 13:35] LABS: Troponin I 0.042 ng/mL (0.000-0.034)
--- NOTE | 2022-04-24 14:51 | ECG_ITS ---
Measurements Intervals [place] Rate: 76 P: 22 NV: 96 QRS: 56 QRSD: 94 T: 71 QT: 395 QTc: 445 Interpretive Statements SINUS RHYTHM WITH SHORT [place] INTERVAL LEFT VENTRICULAR HYPERTROPHY AND ST-T CHANGE BORDERLINE ECG COMPARED TO ECG 04/24/2022 03:18:05 NO SIGNIFICANT CHANGES Electronically Signed On 04-24-2022 16:11:43 CDT by Jewel Payton M.D.
[2022-04-24] MEDS: SODIUM BICARBONATE TAB 650 MG TABLET PO ×2 (14:53→18:08)
[2022-04-24] MEDS: HYDROcodone/acetaminophen (*CRX) 5-325 MG TABLET 1 TAB PO (15:04)
[2022-04-24 17:03] LABS: Troponin I 0.038 ng/mL (0.000-0.034)
[2022-04-24] MEDS: DIVALPROEX SODIUM ER 500 MG TAB.24H PO (18:08)
--- NOTE | 2022-04-24 18:34 | PM.SD2 ---
Same Day Admit/Disch: HPI History of Present Illness Chief complaint: chest pain,hypertensive urgency,rectal mass Narrative: Sachin Donahue is a 66 year old male presented to the ER with multiple complaints. He had abdominal pain with nausea and vomiting as well as a headache during dialysis yesterday. He was noted to have a fecal impaction with a possible rectal mass. He was about to be discharged from the ER when he started complaining of hypertension and chest pain. He was admitted for these symptoms. Troponin was trended and telemetry was monitored. Symptoms completely resolved without intervention. He was discharged in good condition with close outpatient follow-up. It was thought that his chest pain was secondary to his hypertension which was secondary to anxiety as these all resolved relatively quickly without any abnormalities noted on telemetry, EKG or labs. [facility] Past Medical History Medical History COPD exacerbation COVID-19 End stage renal disease Hypertension Surgical History Surgical History History of percutaneous coronary intervention Iliac stent. Cardiac stents. Family History Family History Father Cancer of lung Mother Heart failure Social History Social History Smoking packs per day: 2 Smoking cigarettes per day: 40.0 Smoking status: Current every day smoker Tobacco type: cigarettes Alcohol intake: never Substance use: never Spiritual care concerns: No Same Day Admit/Disch: Med Pre-admit Medications Home Medications Medication Instructions Recorded Confirmed Type aspirin 81 mg tablet,delayed 81 mg PO DAILY 03/19/22 04/24/22 History release atorvastatin 40 mg tablet 40 mg PO DAILY 03/19/22 04/24/22 History clonidine HCl 0.1 mg tablet 0.1 mg PO TID 03/19/22 04/24/22 History divalproex 500 mg tablet,extended 500 mg PO BID 03/19/22 04/24/22 History release 24 hr famotidine 20 mg tablet 20 mg PO HS 03/19/22 04/24/22 History hydralazine 50 mg tablet 100 mg PO TID 03/19/22 04/24/22 History isosorbide mononitrate 30 mg PO DAILY 03/19/22 04/24/22 History nifedipine 90 mg tablet,extended 90 mg PO DAILY 03/19/22 04/24/22 History release oxybutynin chloride 10 mg 10 mg PO HS 03/19/22 04/24/22 History tablet,extended release 24 hr sodium bicarbonate 650 mg tablet 650 mg PO TID 03/19/22 04/24/22 History albuterol sulfate 90 mcg/actuation 2 puff inhalation Q4H PRN 03/24/22 04/24/22 History aerosol inhaler Shortness Of Breath umeclidinium 62.5 mcg/actuation 1 inh inhalation DAILY 03/24/22 04/24/22 History blister powder for inhalation (Incruse Ellipta) ondansetron 4 mg disintegrating 4 mg PO Q6-8H PRN nausea and 04/23/22 04/24/22 Rx tablet vomiting #14 tabs fluticasone 500 mcg-salmeterol 50 1 inh inhalation BID 04/24/22 04/24/22 History mcg/dose blistr powdr for inhalation (Advair Diskus) DS: Data Data Completed and Pending Labs on day of discharge: Labs from last 24 hours 04/24/22 04/24/22 04/24/22 15:51 12:56 12:56 WBC RBC Hgb Hct MCV MCH MCHC RDW Plt Count MPV Immature Gran % (Auto) Neut % (Auto) Lymph % (Auto) [place] % (Auto) Eos % (Auto) Baso % (Auto) Lymph # (Auto) [place] # (Auto) Eos # (Auto) Baso # (Auto) Abs Immat Gran (auto) Absolute Neuts (auto) Absolute Nucleated RBC Nucleated RBC % Sodium 136 L Potassium 4.4 Chloride 91 L Carbon Dioxide 33 H Anion Gap 12 BUN 27 H D Creatinine 4.40 H Estim Creat Clear Calc 11 Estimated GFR 13 L Glucose 90 Calcium 9.1 Total Bilirubin 0.4 AST 25 ALT 14 Alkaline Phosphatase 73 Troponin I 0.038 H* 0.042 H* Total Protein 8.0 Albumin 4.2
--- NOTE | 2022-04-24 18:43 | PC.NURSE ---
Patient discharged, home medications returned, awaiting transportation. Family is currently in process of trying to find transportation, awaiting call back from sonVon.
--- NOTE | 2022-04-24 19:15 | PCCCNOTE ---
Late entry: Phone call received by Carmen bedside RN, at 1816: states that patient is discharged and does not have any transportation, called his son Von and his truck isn't working. Chart review notes that cab voucher provided in February for DC and was requested when patient discharged in March but declined. Called to Von and explained that patient is discharged and he needs to find transportation. He can call a cab or uber, explained that patient is discharged and if he does not leave the insurance will not pay for his time in the hospital. Provided Von with the phone number for [employer] and he could call and work something out with them. Advised to Von to call up to hospital to advise the transportation that he has acquired. Von verbalizes understanding and states that he has the [facility] phone number. Up to floor to meet w/ night RNNga Carrie giving report and has not heard from Von yet. Provided Nga with cab voucher if Von can't get the money for transportation or secure. Requested that Nga confirm address that is on cab voucher if if is needed.
--- NOTE | 2022-04-24 21:22 | PC.NURSE ---
brought pt to front door via wheel chair and pt ambulated self to an awaiting taxi
== END 2022-04-24 21:10 | disposition home or self-care (01) ==
LOC: ANHED 02:34 → ANHIMU 06:16
PROVIDERS: Admitting Provider Internal Medicine; Emergency Provider Emergency Medicine; Visit Provider Student in an Organized Health Care Education/Training Program
DX: I16.0 Hypertensive urgency (principal); D37.5 Neoplasm of uncertain behavior of rectum; K56.41 Fecal impaction; I42.2 Other hypertrophic cardiomyopathy; I45.10 Unspecified right bundle-branch block; Z95.5 Presence of coronary angioplasty implant and graft; I49.1 Atrial premature depolarization; J44.9 Chronic obstructive pulmonary disease, unspecified; I12.0 Hypertensive chronic kidney disease with stage 5 chronic kidney disease or end stage renal disease; N18.6 End stage renal disease; Z99.2 Dependence on renal dialysis; F17.210 Nicotine dependence, cigarettes, uncomplicated; Z79.82 Long term (current) use of aspirin; Z79.52 Long term (current) use of systemic steroids; Z79.899 Other long term (current) drug therapy; R07.9 Chest pain, unspecified; Z79.51 Long term (current) use of inhaled steroids; Z86.16 Personal history of COVID-19
CPT/HCPCS: 36415; 71046; 80053; 84484; 85025; 93005; 99285; A9270; G0378; G0379

== ENCOUNTER 2022-05-04 10:38 | Inpatient (IN) | payer OTHER, SELFPAY ==
[2022-05-04] VITALS (43 sets, daily range): BP systolic 94–151; BP diastolic 58–98; PULSE 60–99; RESP 12–60; TEMP 36–36.7; O2SAT 96–100; BMI 17.9
--- NOTE | ~2022-05-04 | CT_ITS ---
EXAMINATION: CT brain wo con DATE: 05/04/2022 18:28 INDICATION: Rapid response. Potential sepsis. TECHNIQUE: Computed tomography (CT) of the head was performed without intravenous contrast. The dose- length product was 605.33 mGy-cm. Automated exposure control and iterative reconstruction technique w ere employed. COMPARISON: CT dated 04/23/2022 FINDINGS: No acute intracranial hemorrhage, infarction, mass or mass effect. No ventriculomegaly or m idline shift. Basilar cisterns are patent. There is intracranial atherosclerosis. Mild generalized at rophy. Paranasal sinuses and mastoids are pneumatized. IMPRESSION: 1. No acute intracranial abnormality. Reviewed, dictated and finalized at location A.
--- NOTE | ~2022-05-04 | CT_ITS ---
EXAMINATION: CT brain wo con DATE: 05/08/2022 15:06 INDICATION: Altered mental status. TECHNIQUE: Computed tomography (CT) of the head was performed without intravenous contrast. The dose- length product was 605.33 mGy-cm. Automated exposure control and iterative reconstruction technique w ere employed. COMPARISON: CT dated 05/04/2020 FINDINGS: Generalized atrophy. There is a chronic left lacunar infarction. No ventriculomegaly or mid line shift. Basilar cisterns are patent. Paranasal sinuses and mastoids are pneumatized. No depressed skull fractures. There are scattered mild periventricular and subcortical white matter changes, most likely related to small vessel ischemic disease (microangiopathy). IMPRESSION: 1. No acute intracranial abnormality. 2: Chronic left lacunar infarction. 2: Chronic age-related findings. Reviewed, dictated and finalized at location B.
--- NOTE | ~2022-05-04 | CT_ITS ---
EXAMINATION: CT chest abdomen wo con DATE: 05/04/2022 18:55 CDT INDICATION: Rapid response. Change in awareness. TECHNIQUE: Computed tomography (CT) of the chest, abdomen was performed without intravenous contrast. The dose-length product was 343.38 mGy-cm. Automated exposure control and iterative reconstruction t echnique were employed. COMPARISON: CT dated 05/04/2022 at 10:55 AM. FINDINGS: CHEST CT: There is atherosclerosis. Heart size normal. There is severe emphysema. 4 mm left lower lobe nodule. No thoracic lymphadenopathy. There is atherosclerosis of the aorta. Dual lumen pacemaker of the left chest wall with lead tips in the right atrium and right ventricle. No focal airspace consolidation. N o endobronchial lesions. No pneumothorax. ABDOMEN/PELVIS CT: Small left adrenal adenoma. There are calcified granulomas of the spleen. There is bilateral renal at rophy. No lymphadenopathy. No free air or free fluid. Moderate atherosclerosis. No free air. There is a vascular stent in the right renal artery. IMPRESSION: 1. No acute abnormality of the chest or abdomen. No significant change from prior examination perform ed the same day. Reviewed, dictated and finalized at location A. IMPRESSION: 1. No acute abnormality of the chest or abdomen. No significant change from eriberto or examination performed the same day.
--- NOTE | ~2022-05-04 | CT_ITS ---
EXAMINATION: CTA chest abdomen pelvis DATE: 05/04/2022 11:07 INDICATION: Chest and abdominal pain TECHNIQUE: Computed tomographic angiography (CTA) of the chest, abdomen, and pelvis was performed wit h 100 mL Omnipque-350 intravenous contrast. Maximum intensity projection 3D-reconstructions of the ao rta and other arteries were constructed by the technologist on a separate workstation. The dose-lengt h product (DLP) was 550.92 mGy-cm. Automated exposure control and iterative reconstruction technique were employed. COMPARISON: 04/23/2022 FINDINGS: CHEST CTA: There is no aneurysm or dissection of the thoracic aorta. Calcified coronary artery atherosclerosis i s noted. There is moderate emphysema. There is a 4 mm nodule of the left lower lobe on image 60. Ther e is mild atelectasis. No pleural effusion or pneumothorax. No pathologically enlarged thoracic lymph nodes are identified. The heart size is normal. A dual-lead pacemaker of the left chest wall ends wi th its leads in the right atrium and right ventricle. ABDOMEN AND PELVIS CTA: Punctate calcifications in an otherwise normal spleen likely represent healed granulomatous disease. The liver, pancreas, gallbladder, and right adrenal gland are normal. There is a stable adenoma of th e left adrenal gland. The kidneys are unremarkable. No pathologically enlarged abdominal or pelvic ly mph nodes are identified. There is no free intraperitoneal gas or evidence of bowel obstruction. A le ft hydrocele is noted. There is no aneurysm or dissection of the abdominal aorta. There is calcified atherosclerosis of the aorta and many of the other arteries. The celiac axis superior mesenteric artery, and inferior mesent vivian artery are normal at their origins. There appear to be single renal arteries bilaterally. An end oluminal stent is noted in the right renal artery. There is also an endoluminal stent in the right co mmon iliac artery. There is severe stenosis of the left internal iliac artery at its origin. There is moderate stenosis of the right internal iliac artery at its origin. IMPRESSION: 1. No aneurysm or dissection of the aorta. 2. Emphysema. 3. 4 mm nodule of the left lower lobe on image 60. Consider follow-up CT in 12 months. Reviewed, dictated and finalized at location A.
--- NOTE | 2022-05-04 10:41 | ECG_ITS ---
Measurements Intervals [place] Rate: 92 P: -21 [place]: 100 QRS: -3 QRSD: 96 T: -18 QT: 390 QTc: 484 Interpretive Statements SINUS RHYTHM WITH SHORT [place] INTERVAL VOLTAGE CRITERIA FOR LVH NONSPECIFIC T-WAVE ABNORMALITY BORDERLINE ECG COMPARED TO ECG 04/24/2022 15:34:53 T-WAVE ABNORMALITY NOW PRESENT Electronically Signed On 05-05-2022 14:21:23 CDT by Jewel Payton M.D.
--- NOTE | 2022-05-04 11:20 | ED.CHESTPAIN ---
HPI - Chest Pain General Chief Complaint: Chest Pain Stated Complaint: CP WITH WET LOWER LUNG LANDRUM Time Seen by Provider: 05/04/22 10:47 History of Present Illness HPI narrative: HPI limited by acuity of presentation This is a 66-year-old male with end-stage renal disease on dialysis Friday brought in by EMS for chest pain. EMS reports patient presented to his dialysis clinic complaining of chest pain stating that he felt like he was having a heart attack the dialysis, called EMS. They report initial blood pressure was in the 180s systolic with heart rate in the 90s patient was appeared in respiratory distress though oxygen saturation 80 well they placed him on CPAP. The patient complains of chest pain and left kidney pain. He denies weakness or numbness. Related Data Home Medications Medication Instructions Recorded Confirmed aspirin 81 mg tablet,delayed 81 mg PO DAILY 03/19/22 05/04/22 release atorvastatin 40 mg tablet 40 mg PO DAILY 03/19/22 05/04/22 clonidine HCl 0.1 mg tablet 0.1 mg PO TID 03/19/22 05/04/22 divalproex 500 mg tablet,extended 500 mg PO BID 03/19/22 05/04/22 release 24 hr famotidine 20 mg tablet 20 mg PO HS 03/19/22 05/04/22 hydralazine 50 mg tablet 100 mg PO TID 03/19/22 05/04/22 nifedipine 90 mg tablet,extended 90 mg PO DAILY 03/19/22 05/04/22 release oxybutynin chloride 10 mg 10 mg PO DAILY 03/19/22 05/04/22 tablet,extended release 24 hr sodium bicarbonate 650 mg tablet 650 mg PO TID 03/19/22 05/04/22 umeclidinium 62.5 mcg/actuation 1 inh inhalation DAILY 03/24/22 05/04/22 blister powder for inhalation (Incruse Ellipta) fluticasone 500 mcg-salmeterol 50 1 inh inhalation BID 04/24/22 05/04/22 mcg/dose blistr powdr for inhalation (Advair Diskus) isosorbide mononitrate 30 mg 30 mg PO DAILY 05/04/22 05/04/22 tablet,extended release 24 hr Allergies Allergy/AdvReac Type Severity Reaction Status Date / Time No Known Allergies Allergy Verified 03/27/22 20:03 Review of Systems Review of Systems: ROS limited by acuity of presentation CONSTITUTIONAL: Denies fever, chills, or sweats. CARDIOVASCULAR: +chest pain, palpitations RESPIRATORY: +dyspnea. Denies cough or GASTROINTESTINAL: +abdominal pain, Denies nausea, vomiting, or diarrhea. GENITOURINARY: Denies dysuria or hematuria. NEUROLOGIC: Denies headache, numbness, dizziness, or weakness. [facility] Past Medical History Medical History COPD exacerbation COVID-19 End stage renal disease Hypertension Surgical History Surgical History History of percutaneous coronary intervention Iliac stent. Cardiac stents. Family History Family History Father Cancer of lung Mother Heart failure Social History Social History (Updated 05/04/22 @ 15:10 by Felipa Reynoso PA-C) Social History: POA: Von, son Full code Smoking packs per day: 2 Smoking cigarettes per day: 40.0 Smoking status: Current every day smoker Tobacco type: cigarettes Alcohol intake: never Substance use: never Spiritual care concerns: No Exam Narrative: GENERAL: Patient be in acute distress due to dyspnea, 10 HEAD: Normocephalic, atraumatic. EYES: PERRLA and EOMI. ENT: Nares clear, no rhinorrhea or epistaxis. NECK: Supple. No adenopathy or masses. No carotid bruits or JVD CHEST: Faint Rales greater in the lower lung landrum bilaterally, dyspneic, using accessory muscles of respiration HEART: Tachycardic with regular rhythm. No murmur heard. 2+ pulses in the bilateral upper extremities, 1+ pulses in the bilateral lower extremities ABDOMEN: Soft, mild tenderness to palpation in the left lower quadrant without rebound nondistended, normal active bowel sounds. EXTREMITIES: Normal range of motion. Trace bilateral lower extremity edema. SKIN: Warm, dry, no
[2022-05-04] MEDS: MORPHINE SULFATE (*CRX) 4 MG/ML INJ IV PUSH (11:28)
[2022-05-04] MEDS: LABETALOL HCL INJ 100 MG/20 ML VIAL 20 MG IV PUSH (11:29)
[2022-05-04] MEDS: LORazepam INJ (*CRX) 2 MG/ML VIAL 0.5 MG IV PUSH (11:29)
[2022-05-04 11:42] LABS: Basophils Absolute Auto 0.1 K/mm3 (0.0-0.1); Basophils Percent Auto 0.8 % (0.2-1.2); Eosinophils Absolute Auto 0.2 K/mm3 (0-0.3); Eosinophils Percent Auto 1.8 % (0-4.4); Hematocrit 31.9 % (42.0-52.0); Hemoglobin 10.3 g/dL (14.0-18.0); Immature Granulocyte Absolute 0.03 K/mm3 (0.00-0.031); Immature Granulocyte Percent A 0.4 % (0-0.5); Lymphocytes Absolute Auto 1.68 K/mm3 (0.9-3.2); Lymphocytes Percent Auto 19.8 % (18.3-44.2); Mean Corpuscular HGB Conc 32.3 g/dl (32-36); Mean Corpuscular Hemoglobin 30.7 pg (26-34); Mean Corpuscular Volume 94.9 fl (80-100); Monocytes Absolute Auto 0.7 K/mm3 (0.1-0.6); Monocytes Percent Auto 8.1 % (2.6-8.5); Neutrophils Absolute Auto 5.9 K/mm3 (1.3-6.7); Neutrophils Percent Auto 69.1 % (45.5-73.1); Platelet Count Result 264 k/mm3 (150-375); Red Blood Count 3.36 M/mm3 (4.6-6.20); Red Cell Distribution Width 15.6 % (11.5-14.5); White Blood Count 8.5 K/mm3 (4.5-10.0)
[2022-05-04 11:56] LABS: Alanine Aminotransferase 15 U/L (6-50); Alkaline Phosphatase 69 U/L (38-126); Anion Gap 15 mmol/L (8-16); Aspartate Amino Transferase 21 U/L (17-59); Bilirubin,Total 0.3 mg/dL (0.2-1.3); Blood Urea Nitrogen 35 mg/dL (9-20); Calcium 8.9 mg/dL (8.4-10.2); Carbon Dioxide 27 mmol/L (22-30); Chloride 92 mmol/L (98-107); Estimated CRCL calculation 12 ml/min; Estimated Glomerular Filt Rate 11; Glucose 112 mg/dL (65-110); Sodium 134 mmol/L (137-145)
[2022-05-04 12:10] LABS: Device NON-INVASIVE VENT; HCO3 VBG 28.5 mEq/l (24.0-30.0); PCO2 VBG 32.9 mmHg (42.0-48.0); pH VBG 7.555 (7.300-7.400)
[2022-05-04 12:12] LABS: Non-Invasive Inspiratory Pressure 12 CMH2O; Non-Invasive Vent Rate 12 /MIN
[2022-05-04 12:13] LABS: Non-Invasive Expiratory Pressure 5 CMH2O
[2022-05-04 12:14] LABS: NT Pro B Type Natriuretic Pept 1660 pg/mL (5-100); Troponin I 0.042 ng/mL (0.000-0.034)
[2022-05-04 12:32] LABS: SARS-CoV-2 RNA PCR Negative
[2022-05-04 13:32] LABS: Appearance Urine Clear (Clear); Bilirubin Urine Negative (Negative); Blood Urine Negative (Negative); Color Urine Yellow (Yellow); Glucose Urine UA Negative (Negative); Ketones Urine Negative (Negative); Leukocyte Esterase Ur Negative LEU/UL (Negative); Nitrate Urine Negative (Negative); Protein Urine 2+ mg/dL (Negative); Urobilinogen Urine 0.2 mg/dL (<2.0)
[2022-05-04 13:43] LABS: Bacteria Urine Trace /hpf; Squamous Epithelial Cell Urine Rare /hpf (Few); WBC Urine 0-3 /hpf
[2022-05-04 13:44] LABS: Add Urine Microscopic? YES
--- NOTE | 2022-05-04 14:33 | PM.IMHP ---
H&P: HPI History of Present Illness Date/Time: 05/04/22 14:33 Chief Complaint: Chest pain Narrative: Date of service: 05/04/2022 Sachin Donahue is a 58-year-old male with a history of ESRD on hemodialysis, hypertension, COPD, COVID-19 who presented to the emergency department today with complaints of chest pain. He went to his dialysis appointment today when he reportedly felt like he was having ?a heart attack? and therefore EMS was summoned and he presented to the emergency department. In the ED, the patient was markedly tachypneic and was placed on BiPAP with significant improvement in respiratory status, additional vital signs were stable, CBC unremarkable, potassium 3.0, creatinine 5.1, troponin 0.042. The patient received Bumex in the ED. Patient is now Being admitted to the hospitalist service and will be seen in consultation by nephrology. The patient is a poor historian and history is difficult to obtain as he is on BiPAP. The patient describes pain in the middle of his chest that is like a sharp poking sensation. It does not radiate. He also feels short of breath and reports he is unable to urinate. He states he last urinated this morning. However, it appears he did urinate in the ED after receiving Bumex. Supervising physician for this history and physical is Dr. Myra Cavazos. Case has been reviewed and discussed with supervising physician. Review of Systems Review of Systems: ROS unobtainable: Yes unobtainable due to medical condition PMFSH Past Medical History Medical History COPD exacerbation COVID-19 End stage renal disease Hypertension Surgical History Surgical History History of percutaneous coronary intervention Iliac stent. Cardiac stents. Family History Family History Father Cancer of lung Mother Heart failure Social History Social History (Updated 05/04/22 @ 15:10 by Felipa Reynoso PA-C) Social History: POA: Von, son Full code Smoking packs per day: 2 Smoking cigarettes per day: 40.0 Smoking status: Current every day smoker Tobacco type: cigarettes Alcohol intake: never Substance use: never Spiritual care concerns: No Meds Home Medications and Allergies Home Medications Medication Instructions Recorded Confirmed Type aspirin 81 mg tablet,delayed 81 mg PO DAILY 03/19/22 04/24/22 History release atorvastatin 40 mg tablet 40 mg PO DAILY 03/19/22 04/24/22 History clonidine HCl 0.1 mg tablet 0.1 mg PO TID 03/19/22 04/24/22 History divalproex 500 mg tablet,extended 500 mg PO BID 03/19/22 04/24/22 History release 24 hr famotidine 20 mg tablet 20 mg PO HS 03/19/22 04/24/22 History hydralazine 50 mg tablet 100 mg PO TID 03/19/22 04/24/22 History isosorbide mononitrate 30 mg PO DAILY 03/19/22 04/24/22 History nifedipine 90 mg tablet,extended 90 mg PO DAILY 03/19/22 04/24/22 History release oxybutynin chloride 10 mg 10 mg PO HS 03/19/22 04/24/22 History tablet,extended release 24 hr sodium bicarbonate 650 mg tablet 650 mg PO TID 03/19/22 04/24/22 History albuterol sulfate 90 mcg/actuation 2 puff inhalation Q4H PRN 03/24/22 04/24/22 History aerosol inhaler Shortness Of Breath umeclidinium 62.5 mcg/actuation 1 inh inhalation DAILY 03/24/22 04/24/22 History blister powder for inhalation (Incruse Ellipta) ondansetron 4 mg disintegrating 4 mg PO Q6-8H PRN nausea and 04/23/22 04/24/22 Rx tablet vomiting #14 tabs fluticasone 500 mcg-salmeterol 50 1 inh inhalation BID 04/24/22 04/24/22 History mcg/dose blistr powdr for inhalation (Advair Diskus) Allergies Allergy/AdvReac Type Severity Reaction Status Date / Time No Known Allergies Allergy Verified 03/27/22 20:03 Vital Signs Vital Signs - 24 hr 05/04/22 10:36 05/04/22 11:00 05/04/22 11:34 Pulse Rate 99 68
--- NOTE | 2022-05-04 14:46 | PM.CNNEP ---
Assessment and Plan Assessment and plan (1) End stage renal disease: Code(s): N18.6 - End stage renal disease Status: Chronic Assessment and Plan: HD today and continue T/T/S dialysis schedule follow electrolytes, volume status, and clearance (2) Chest pain: Code(s): R07.9 - Chest pain, unspecified Status: Acute Assessment and Plan: this apparently occurred when on dialysis treatment mildly elevated troponins noted but could be secondary to ESRD status chest pain reproducible with palpation - an element of costochondritis(?) follow telemetry, EKGs, and subsequent troponins CT of chest without aneurysm or dissection continue supportive therapy (3) Acute dyspnea: Code(s): R06.00 - Dyspnea, unspecified Status: Acute Assessment and Plan: due to COPD versus mild fluid overload versus combination of both imaging on presentation not impressive for overt fluid overload however, perhaps initial cardiac issue versus high BP or anxiety led to flash pulmonary edema that resolved with BIPAP therapy +/- IV antihypertensive medications... BiPAP therapy as needed fluid removal with dialysis follow respiratory status (4) Hypokalemia: Code(s): E87.6 - Hypokalemia Status: Acute Assessment and Plan: will adjust dialysis treatment today to compensate supplementation as needed (5) Hypertension: Code(s): I10 - Essential (primary) hypertension Status: Chronic Assessment and Plan: elevated on presentation given IV medications in ER with noted improvement follow trend of hemodynamics post dialysis Will continue to follow. History of Present Illness Reason for Consult Consult date: 05/04/22 Reason for consult: end stage renal disease Chief Complaint Chief complaint: Chest Pian, Pulmonary Edema History of Present Illness Narrative: The patient is a 58-year-old male with a past medical history as outlined below who presented to [facility] Emergency room with complaints of chest pain. The patient is a very poor historian so a great deal the information I have obtained is from review of the electronic medical record as well as discussion with the ER physician. The patient initially presented to his outpatient dialysis center for his regularly scheduled dialysis treatment. Apparently, 15 minutes into his dialysis treatment, he complained of chest pain like he was having a heart attack and therefore EMS was called and he was subsequent transferred to the emergency room for further evaluation. Workup and evaluation emergency room did demonstrate the patient was quite hypertensive and tachypneic. He received IV labetalol for his hypertension and was placed on BiPAP and both of these interventions seemed to improve his respiratory status significantly. Routine blood test demonstrated unremarkable CBC and a chemistry that was significant for labs consistent with his known history of end-stage renal disease although his potassium was on the lower end of normal. There was some concern that his initial presentation was due to flash pulmonary edema and he was given IV Bumex in the emergency room as well. The patient described the chest pain as a sharp poking sensation that was localized to the middle of his chest. No apparent radiation or other associated symptoms other than shortness of breath. There was some concern for possible aortic dissection but a CT angiogram of the chest abdomen pelvis was negative for this. As he was unable to receive his full outpatient dialysis treatment as well as the with the concern that his shortness of breath and respiratory status may be related somewhat to volume overload which has improved, he was admitted the hospital for further evaluation and therapy. Renal consultation was requested due to his end-stage renal disease. The patient normally dialyzes on a Friday, , Friday schedu
[2022-05-04 15:14] LABS: Troponin I 0.046 ng/mL (0.000-0.034)
--- NOTE | 2022-05-04 15:22 | PC.NURSE ---
Pt transferred to dialysis room 308 per RN and windows deployment technician with tele, belongings and chart. Pt on 2LNC with SPO2 at 98-100% during trip. Pt left on transport school lunch monitor with dialysis.
[2022-05-04 17:00] LABS: Hepatitis B Surface Antigen Negative (Negative)
--- NOTE | 2022-05-04 17:07 | ADMGEN ---
This patient, Sachin Donahue, was admitted to IMU Room 214-01. Patient/family oriented to hospital policies and general routines including ID bracelet, bed and alarms, visiting hours, pain management, procedures, bathroom and other care routines, personal items, smoking policy, room service/diet, and visiting hours. Information on how to activate the Rapid Response Team has been discussed. Patient/Family are encouraged to report perceived risks to care and to ask questions if they do not understand what they are told or what they should do.
[2022-05-04 17:18] LABS: Hepatitis B Surface Anti Res Negative
--- NOTE | 2022-05-04 17:18 | PM.EVENT ---
Event Note Event Note Event Note: SUPER[employer] called while pt receiving HD per HD RN pt had an acute change in mental status and shaking of RUE noted, pt was calling out, repeating Melvin on PE he was not able to focus with eyes but EOMI were intact, he was speaking while his RUE was shaking, VS were WNL BG normal pt presented to ER earlier w c/o acute chest pain while at HD BP was elevated in ER , RR also elevated, pt was in resp distress w hypoxia and BIPAP ordered pt improved with BiPAP, Labetolol, and Ativan troponins in ER were at his baseline from previous admission follow up evaluation in IMU pt has returned to or is close to baseline cognitive status (poor historian but oriented) able to follow commands now and moves all extremities, no facial droop PROBLEM Acute mental status change possible etiology -seizure disorder (no h/o seizure disorder per medical chart review) -intracranial/ cerebral vascular event -metabolic encephalopathy from infection (recent admission for bacteremia and pt had TDC present ) or HTN (but bp normal at time of [employer]), receiving HD during [employer] (600cc were removed over 1.5hrs prior to event) -psychiatric illness ( on Depakote but no history noted either psychiatric or seizure disorder) -hypoxia ruled out O2 sat 97% at time of event on 2L -acute hypoglycemia ruled out BG 91 PROBLEM Acute Resp Failure in ER possible etiology CHF, COPD, HTN emergency, anxiety, flash pulm edema, met acidosis w resp compensation review of medical chart unclear what what etiology was and many ruled out by lab and PE findings plan BG requested-> 91 Keppra 1000mg IV x 1 (pt reports he frequently has tremors, blames it on a medication, denies seizure hx but reports Depakote rx x tremor) c/s Dr Hanson EEG CT head w/o con blood cultures CBC CMP Mg troponin x [address] chest abd to assess cause of hyperventilation not associated w hypoxia (resp rate 28 and O2 sat 100% on 3L HR 60s) O2 turned down to 1L and will reassess 40 pack yr history O2 goal 92-95% sputum culture duonebs for SOB wheezing pt stable remain in IMU will follow up on results as reported
[2022-05-04 17:40] LABS: Glucose Point of Care 91 mg/dl (65-105)
[2022-05-04 17:53] LABS: Basophils Absolute Auto 0.1 K/mm3 (0.0-0.1); Eosinophils Absolute Auto 0.3 K/mm3 (0-0.3); Eosinophils Percent Auto 3.6 % (0-4.4); Hematocrit 34.8 % (42.0-52.0); Hemoglobin 11.1 g/dL (14.0-18.0); Immature Granulocyte Absolute 0.02 K/mm3 (0.00-0.031); Immature Granulocyte Percent A 0.2 % (0-0.5); Lymphocytes Absolute Auto 2.98 K/mm3 (0.9-3.2); Lymphocytes Percent Auto 35.9 % (18.3-44.2); Mean Corpuscular HGB Conc 31.9 g/dl (32-36); Mean Corpuscular Hemoglobin 30.6 pg (26-34); Mean Corpuscular Volume 95.9 fl (80-100); Mean Platelet Volume 10.2 fl (7.4-10.4); Monocytes Absolute Auto 0.6 K/mm3 (0.1-0.6); Monocytes Percent Auto 7.6 % (2.6-8.5); Neutrophils Absolute Auto 4.3 K/mm3 (1.3-6.7); Neutrophils Percent Auto 51.7 % (45.5-73.1); Platelet Count Result 280 k/mm3 (150-375); Red Blood Count 3.63 M/mm3 (4.6-6.20); Red Cell Distribution Width 15.8 % (11.5-14.5); White Blood Count 8.3 K/mm3 (4.5-10.0)
[2022-05-04 18:13] LABS: Alveolar/Arterial O2 Gradient 17.1 mmHg; Base Excess ABG 3.4 mEq/l (+/-2.0); Fractional Inspired Oxygen 24 %; HCO3 ABG 27.9 mEq/l (22.0-26.0); Oxygen Content ABG 15.9 %vol (16.0-22.0); Oxygen Saturation ABG 97.9 % (95.0-100.0); Oxyhemoglobin 96.5 % THb (90.0-100.0); PO2 FiO2 Ratio Arterial Blood 4.33 %; Total Hemoglobin 11.6 g/dL (12.0-18.0)
[2022-05-04 18:14] LABS: Alanine Aminotransferase 15 U/L (6-50); Albumin Level 4.3 g/dL (3.5-5.1); Alkaline Phosphatase 71 U/L (38-126); Anion Gap 11 mmol/L (8-16); Aspartate Amino Transferase 20 U/L (17-59); Bilirubin,Total 0.5 mg/dL (0.2-1.3); Blood Urea Nitrogen 21 mg/dL (9-20); Calcium 8.5 mg/dL (8.4-10.2); Carbon Dioxide 31 mmol/L (22-30); Chloride 97 mmol/L (98-107); Estimated CRCL calculation 14 ml/min; Estimated Glomerular Filt Rate 18; Glucose 82 mg/dL (65-110); Potassium 3.7 mmol/L (3.4-5.0); Sodium 139 mmol/L (137-145)
[2022-05-04 18:15] LABS: Device ROOM AIR; Modified Allen's Test Pass; Site Drawn RIGHT RADIAL
[2022-05-04 18:41] LABS: Troponin I 0.049 ng/mL (0.000-0.034)
[2022-05-04] MEDS: levETIRAcetam 1000MG/NACL100ML 1,000 MG/100 ML BAG 400 MG IVPB (20:09)
[2022-05-04 20:56] LABS: Glucose Point of Care 101 mg/dl (65-105)
[2022-05-04] MEDS: ACETAMINOPHEN 500 MG TABLET 1000 MG PO (22:56)
[2022-05-05] VITALS (20 sets, daily range): BP systolic 114–152; BP diastolic 73–86; PULSE 59–99; RESP 16–44; TEMP 36.2–36.6; O2SAT 99–100
[2022-05-05 04:58] LABS: Basophils Absolute Auto 0.1 K/mm3 (0.0-0.1); Basophils Percent Auto 1.3 % (0.2-1.2); Eosinophils Absolute Auto 0.3 K/mm3 (0-0.3); Eosinophils Percent Auto 3.7 % (0-4.4); Hematocrit 34.6 % (42.0-52.0); Hemoglobin 10.8 g/dL (14.0-18.0); Immature Granulocyte Absolute 0.02 K/mm3 (0.00-0.031); Immature Granulocyte Percent A 0.3 % (0-0.5); Lymphocytes Absolute Auto 2.07 K/mm3 (0.9-3.2); Lymphocytes Percent Auto 27.6 % (18.3-44.2); Mean Corpuscular HGB Conc 31.2 g/dl (32-36); Mean Corpuscular Hemoglobin 30.4 pg (26-34); Mean Corpuscular Volume 97.5 fl (80-100); Mean Platelet Volume 10.1 fl (7.4-10.4); Monocytes Absolute Auto 0.6 K/mm3 (0.1-0.6); Neutrophils Absolute Auto 4.4 K/mm3 (1.3-6.7); Neutrophils Percent Auto 59.1 % (45.5-73.1); Platelet Count Result 285 k/mm3 (150-375); Red Blood Count 3.55 M/mm3 (4.6-6.20); Red Cell Distribution Width 15.7 % (11.5-14.5); White Blood Count 7.5 K/mm3 (4.5-10.0)
[2022-05-05 05:00] LABS: Anion Gap 10 mmol/L (8-16); Blood Urea Nitrogen 25 mg/dL (9-20); Calcium 8.7 mg/dL (8.4-10.2); Carbon Dioxide 28 mmol/L (22-30); Chloride 99 mmol/L (98-107); Estimated CRCL calculation 11 ml/min; Estimated Glomerular Filt Rate 13; Glucose 90 mg/dL (65-110); Sodium 137 mmol/L (137-145)
--- NOTE | 2022-05-05 07:47 | ECG_ITS ---
Measurements Intervals [place] Rate: 76 P: [place]: 138 QRS: 75 QRSD: 96 T: 83 QT: 438 QTc: 493 Interpretive Statements SINUS RHYTHM WITH OCCASIONAL ECTOPIC ATRIAL BEATS PROLONGED QT INTERVAL BORDERLINE ECG COMPARED TO ECG 05/04/2022 10:41:50 ECTOPIC ATRIAL BEATS PRESENT PROLONGED QT INTERVAL NOW PRESENT Electronically Signed On 05-05-2022 14:42:21 CDT by Jewel Payton M.D.
[2022-05-05 08:10] LABS: Glucose Point of Care 84 mg/dl (65-105)
[2022-05-05] MEDS: NIFEdipine 30 MG TAB.ER.24 90 MG PO (08:40)
[2022-05-05] MEDS: UMECLIDINIUM BROMIDE 62.5 MCG ELLIPTA 1 PUFF INHALATION (08:40)
[2022-05-05] MEDS: FLUTICASONE/SALMETEROL 230-21 MCG INHALER 1 PUFF 2 PUFF INHALATION ×2 (08:40→20:12)
[2022-05-05] MEDS: hydrALAZINE HCL 50 MG TABLET 100 MG PO ×3 (08:40→18:14)
[2022-05-05] MEDS: ASPIRIN 81 MG ENTERIC TABLET PO (08:41)
[2022-05-05] MEDS: DIVALPROEX SODIUM ER 500 MG TAB.24H PO ×2 (08:41→18:15)
[2022-05-05] MEDS: cloNIDine HCL 0.1 MG TABLET PO ×3 (08:41→18:15)
[2022-05-05] MEDS: ATORVASTATIN 40 MG TABLET PO (08:41)
[2022-05-05] MEDS: SODIUM BICARBONATE TAB 650 MG TABLET PO ×3 (08:42→18:15)
[2022-05-05] MEDS: ISOSORBIDE MONONITRATE 30 MG TAB.ER.24H PO (08:42)
--- NOTE | 2022-05-05 10:06 | P.PNIM_ITS ---
Progress Note: A&P Assessment and Plan (1) Acute respiratory failure: Code(s): J96.00 - Acute respiratory failure, unspecified whether with hypoxia or hypercapnia Status: Acute (2) Lung nodule: Code(s): R91.1 - Solitary pulmonary nodule Status: Acute (3) Hypokalemia: Code(s): E87.6 - Hypokalemia Status: Acute (4) Chest pain: Code(s): R07.9 - Chest pain, unspecified Status: Acute (5) Hypertensive urgency: Code(s): I16.0 - Hypertensive urgency Status: Acute (6) End stage kidney disease: Code(s): N18.6 - End stage renal disease Status: Acute (7) Tobacco dependence: Code(s): F17.200 - Nicotine dependence, unspecified, uncomplicated Status: Acute (8) Altered mental status: Code(s): R41.82 - Altered mental status, unspecified Status: Acute Plan Atypical.? Presented with chest pain while in dialysis * Troponin mildly elevated on presentation, however likely due to end-stage renal disease. Levels consistent with prior readings earlier this month * Trend troponins * EKG reviewed without acute changes. Some mild nonspecific changes from prior EKG which may be due to lead placement. Will repeat. * Chest CTA with no aneurysm or dissection * Pain reproducible with palpation of chest wall * May be related to anxiety. Similar symptoms at last hospitalization 10 days prior. Patient presented with respiratory distress with O2 sat in the 80s * Placed on BiPAP with overall improvement in respiratory status * Likely due to volume overload though chest CT not significant for pulmonary edema/pleural effusion * No wheezing on exam to suggest COPD exacerbation.? Continue maintenance inhalers * Patient received Bumex in the ED with improvement * Anticipate resolution following fluid volume management with dialysis Maintained on hemodialysis * Last dialysis was .? Did not receive today at outpatient appointment due to chest pain * Nephrology has been consulted for dialysis management * Planning for dialysis today * Continue dialysis schedule Potassium 3.0 on admission * Will defer supplementation to Nephrology Blood pressure reviewed and has been stable. Last BP 126/74. * Received labetalol on presentation. * Resume home antihypertensives following medication reconciliation * Monitor BP trends CTA on presentation revealed 4 mm lung nodule of left lower lobe. 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 This afternoon he has a similar episode of AMS w nonsense but clear speech. Today, no tremor movements witnessed, and he did attempt to speak on the phone during the episode. 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
--- NOTE | 2022-05-05 10:06 | PM.IMPN ---
Progress Note: A&P Assessment and Plan (1) Acute respiratory failure: Code(s): J96.00 - Acute respiratory failure, unspecified whether with hypoxia or hypercapnia Status: Acute (2) Lung nodule: Code(s): R91.1 - Solitary pulmonary nodule Status: Acute (3) Hypokalemia: Code(s): E87.6 - Hypokalemia Status: Acute (4) Chest pain: Code(s): R07.9 - Chest pain, unspecified Status: Acute (5) Hypertensive urgency: Code(s): I16.0 - Hypertensive urgency Status: Acute (6) End stage kidney disease: Code(s): N18.6 - End stage renal disease Status: Acute (7) Tobacco dependence: Code(s): F17.200 - Nicotine dependence, unspecified, uncomplicated Status: Acute (8) Altered mental status: Code(s): R41.82 - Altered mental status, unspecified Status: Acute Plan Atypical.? Presented with chest pain while in dialysis Troponin mildly elevated on presentation, however likely due to end-stage renal disease. Levels consistent with prior readings earlier this month Trend troponins EKG reviewed without acute changes. Some mild nonspecific changes from prior EKG which may be due to lead placement. Will repeat. Chest CTA with no aneurysm or dissection Pain reproducible with palpation of chest wall May be related to anxiety. Similar symptoms at last hospitalization 10 days prior. Patient presented with respiratory distress with O2 sat in the 80s Placed on BiPAP with overall improvement in respiratory status Likely due to volume overload though chest CT not significant for pulmonary edema/pleural effusion No wheezing on exam to suggest COPD exacerbation.? Continue maintenance inhalers Patient received Bumex in the ED with improvement Anticipate resolution following fluid volume management with dialysis Maintained on hemodialysis Last dialysis was .? Did not receive today at outpatient appointment due to chest pain Nephrology has been consulted for dialysis management Planning for dialysis today Continue dialysis schedule Potassium 3.0 on admission Will defer supplementation to Nephrology Blood pressure reviewed and has been stable. Last BP 126/74. Received labetalol on presentation. Resume home antihypertensives following medication reconciliation Monitor BP trends CTA on presentation revealed 4 mm lung nodule of left lower lobe. 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 This afternoon he has a similar episode of AMS w nonsense but clear speech. Today, no tremor movements witnessed, and he did attempt to speak on the phone during the episode. 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
--- NOTE | 2022-05-05 11:50 | P.PNNP_ITS ---
Progress Note: A&P Assessment and Plan (1) End stage renal disease: Code(s): N18.6 - End stage renal disease Status: Chronic Assessment and Plan: * partial HD treatment yesterday - continue T/T/S dialysis schedule for now * follow electrolytes, volume status, and clearance (2) Chest pain: Code(s): R07.9 - Chest pain, unspecified Status: Acute Assessment and Plan: * this apparently occurred when on dialysis treatment * mildly elevated troponins noted but could be secondary to ESRD status * chest pain reproducible with palpation - an element of costochondritis(?) * follow telemetry, EKGs, and subsequent troponins * CT of chest without aneurysm or dissection * continue supportive therapy (3) Acute dyspnea: Code(s): R06.00 - Dyspnea, unspecified Status: Acute Assessment and Plan: * due to COPD versus mild fluid overload versus combination of both * imaging on presentation not impressive for overt fluid overload * however, perhaps initial cardiac issue versus high BP or anxiety led to flash pulmonary edema that resolved with BIPAP therapy +/- IV antihypertensive medications... * BiPAP therapy as needed * fluid removal with dialysis * follow respiratory status (4) Altered mental status: Code(s): R41.82 - Altered mental status, unspecified Status: Acute Assessment and Plan: * appears back to baseline currently * CT of brain negative * Neurology consulted (possible seizure?) (5) Hypertension: Code(s): I10 - Essential (primary) hypertension Status: Chronic Assessment and Plan: * elevated on presentation * mildly elevated currently * follow trend of hemodynamics with home medications (6) Hypokalemia: Code(s): E87.6 - Hypokalemia Status: Acute Assessment and Plan: * resolved Will continue to follow. Subjective Date/time seen: 05/05/22 11:50 Events noted yesterday afternoon during dialysis treatment -- rapid response called for acute mental status change in association with significant tremor in RUE; dialysis treatment was aborted; mentation seems to return back to baseline in 20 - 30 minutes; testing/imaging unrevealing as to the cause of these events; no apparent distress at the time of my visit today. Exam Narrative: General: WD/WN male in NAD Heart: normal S1 and S2; no rub Lungs: coarse breath sounds Abdomen: soft, nontender, nondistended, positive bowel sounds Extremities: no cyanosis or clubbing; no edema Skin: warm and dry Objective Data Vital Signs Vital Signs: Vital Signs Temp Pulse Resp BP Pulse Ox O2 Del Method O2 Flow Rate 05/05/22 10:00 71 05/05/22 08:00 100 Nasal Cannula 2 05/05/22 08:00 36.6 C 99 26 H 152/86 H 100 05/05/22 08:43 64 20 05/05/22 08:35 60 20 99 Nasal Cannula 2 05/05/22 08:00 63 05/05/22 07:57 60 27 H 99 BiPAP 05/05/22 06:00 75 05/05/22 04:00 99 BiPAP 2 05/05/22 04:00 60 05/05/22 04:00 36.3 C L 59 L 18 138/75 100 05/04/22 23:30 96 BiPAP 05/05/22 03:27 61 16 100 BiPAP 05/05/22 02:00 65 05/04/22 23:30 83 16 96 BiPAP 05/05/22 00:00 99 BiPAP 05/05/22 00:00 64 05/04/22 23:49 36.
--- NOTE | 2022-05-05 11:50 | PM.PNNEP ---
Progress Note: A&P Assessment and Plan (1) End stage renal disease: Code(s): N18.6 - End stage renal disease Status: Chronic Assessment and Plan: partial HD treatment yesterday - continue T/T/S dialysis schedule for now follow electrolytes, volume status, and clearance (2) Chest pain: Code(s): R07.9 - Chest pain, unspecified Status: Acute Assessment and Plan: this apparently occurred when on dialysis treatment mildly elevated troponins noted but could be secondary to ESRD status chest pain reproducible with palpation - an element of costochondritis(?) follow telemetry, EKGs, and subsequent troponins CT of chest without aneurysm or dissection continue supportive therapy (3) Acute dyspnea: Code(s): R06.00 - Dyspnea, unspecified Status: Acute Assessment and Plan: due to COPD versus mild fluid overload versus combination of both imaging on presentation not impressive for overt fluid overload however, perhaps initial cardiac issue versus high BP or anxiety led to flash pulmonary edema that resolved with BIPAP therapy +/- IV antihypertensive medications... BiPAP therapy as needed fluid removal with dialysis follow respiratory status (4) Altered mental status: Code(s): R41.82 - Altered mental status, unspecified Status: Acute Assessment and Plan: appears back to baseline currently CT of brain negative Neurology consulted (possible seizure?) (5) Hypertension: Code(s): I10 - Essential (primary) hypertension Status: Chronic Assessment and Plan: elevated on presentation mildly elevated currently follow trend of hemodynamics with home medications (6) Hypokalemia: Code(s): E87.6 - Hypokalemia Status: Acute Assessment and Plan: resolved Will continue to follow. Subjective Date/time seen: 05/05/22 11:50 Events noted yesterday afternoon during dialysis treatment -- rapid response called for acute mental status change in association with significant tremor in RUE; dialysis treatment was aborted; mentation seems to return back to baseline in 20 - 30 minutes; testing/imaging unrevealing as to the cause of these events; no apparent distress at the time of my visit today. Exam Narrative: General: WD/WN male in NAD Heart: normal S1 and S2; no rub Lungs: coarse breath sounds Abdomen: soft, nontender, nondistended, positive bowel sounds Extremities: no cyanosis or clubbing; no edema Skin: warm and dry Objective Data Vital Signs Vital Signs: Vital Signs Temp Pulse Resp BP Pulse Ox O2 Del Method O2 Flow Rate 05/05/22 10:00 71 05/05/22 08:00 100 Nasal Cannula 2 05/05/22 08:00 36.6 C 99 26 H 152/86 H 100 05/05/22 08:43 64 20 05/05/22 08:35 60 20 99 Nasal Cannula 2 05/05/22 08:00 63 05/05/22 07:57 60 27 H 99 BiPAP 05/05/22 06:00 75 05/05/22 04:00 99 BiPAP 2 05/05/22 04:00 60 05/05/22 04:00 36.3 C L 59 L 18 138/75 100 05/04/22 23:30 96 BiPAP 05/05/22 03:27 61 16 100 BiPAP 05/05/22 02:00 65 05/04/22 23:30 83 16 96 BiPAP 05/05/22 00:00 99 BiPAP 05/05/22 00:00 64 05/04/22 23:49 36.7 C 68 20 151/91 H 98 05/04/22 20:00 80 05/04/22 22:00 65 05/04/22 20:00 99 Nasal Cannula 2 05/04/22 20:00 36.6 C 79 20 144/90 H 100 05/04/22 18:00 98 Nasal Cannula 2 05/04/22 18:00 66 05/04/22 16:45 77 145/93 H 05/04/22 16:30 63 114/78 05/04/22 16:15 70 141/83 H 05/04/22 16:00 69 125/83 05/04/22 15:45 74 116/74 05/04/22 16:55 36.1 C L 71 20 137/95 H 05/04/22 15:32 70 94/63 L 05/04/22 15:24 36.4 C 71 20 140/82 05/04/22 17:10 36.7 C 64 20 124/74 100 05/04/22 16:57 76 20 149/73 H 97 05/04/22 15:41 99 Nasal Cannula 2 05/04/22
[2022-05-05] MEDS: ACETAMINOPHEN 500 MG TABLET 1000 MG PO (14:23)
[2022-05-05] MEDS: levETIRAcetam 500MG/NACL 100ML 500 MG/100 ML BAG 400 MG IVPB (16:22)
[2022-05-05] MEDS: LORazepam INJ (*CRX) 2 MG/ML VIAL 1 MG IV PUSH (16:47)
[2022-05-05 16:53] LABS: Glucose Point of Care 97 mg/dl (65-105)
[2022-05-05] MEDS: FAMOTIDINE 20 MG TABLET PO (20:41)
--- NOTE | 2022-05-05 23:55 | PC.NURSE ---
Nursing care of this patient, Sachin Godfrey, has been assumed by Molly Jeffrey RN. Report has been given and all questions answered.
[2022-05-06] VITALS (17 sets, daily range): BP systolic 108–152; BP diastolic 53–96; PULSE 60–78; RESP 18–24; TEMP 36.4–36.8; O2SAT 96–100
[2022-05-06 04:54] LABS: Basophils Absolute Auto 0.1 K/mm3 (0.0-0.1); Basophils Percent Auto 1.1 % (0.2-1.2); Eosinophils Absolute Auto 0.3 K/mm3 (0-0.3); Eosinophils Percent Auto 4.1 % (0-4.4); Hematocrit 32.4 % (42.0-52.0); Hemoglobin 10.3 g/dL (14.0-18.0); Immature Granulocyte Absolute 0.02 K/mm3 (0.00-0.031); Immature Granulocyte Percent A 0.3 % (0-0.5); Lymphocytes Percent Auto 29.4 % (18.3-44.2); Mean Corpuscular HGB Conc 31.8 g/dl (32-36); Mean Corpuscular Hemoglobin 30.5 pg (26-34); Mean Corpuscular Volume 95.9 fl (80-100); Monocytes Absolute Auto 0.6 K/mm3 (0.1-0.6); Monocytes Percent Auto 8.8 % (2.6-8.5); Neutrophils Percent Auto 56.3 % (45.5-73.1); Platelet Count Result 261 k/mm3 (150-375); Red Blood Count 3.38 M/mm3 (4.6-6.20); Red Cell Distribution Width 15.2 % (11.5-14.5); White Blood Count 7.1 K/mm3 (4.5-10.0)
[2022-05-06 05:02] LABS: Albumin Level 3.7 g/dL (3.5-5.1); Anion Gap 13 mmol/L (8-16); Blood Urea Nitrogen 37 mg/dL (9-20); Calcium 8.6 mg/dL (8.4-10.2); Carbon Dioxide 27 mmol/L (22-30); Chloride 93 mmol/L (98-107); Estimated CRCL calculation 9 ml/min; Estimated Glomerular Filt Rate 10; Glucose 102 mg/dL (65-110); Phosphorus 5.5 mg/dL (2.5-4.5); Potassium 3.6 mmol/L (3.4-5.0); Sodium 133 mmol/L (137-145)
--- NOTE | 2022-05-06 06:00 | ECHO_ITS ---
Patient Info Name: Sachin Donahue Age: 66 years : 1955 Gender: Male Ht: 67 in Wt: 114 lbs BSA: 1.55 m2 HR: 60 bpm BP: 129 / 85 mmHg Heart Rhythm: Sinus Rhythm Technical Quality: Fair Exam Date: 05/06/2022 7:30 AM Exam Location: [facility] Patient Status: Inpatient Admit Date: 05/05/2022 Staff Ordering Physician: Arden Burnette MD Technical Support Agent: Toyin Schuster RDCS Attending Provider: Myra Cavazos MD Referring Physician: Vasile TUBBS; Exam Type: CA echo doppler color flow Study Info Indications - Pulmonary edema Complete two-dimensional, color flow and Doppler transthoracic echocardiogram is performed. Summary 1. Complete two-dimensional, color flow and Doppler transthoracic echocardiogram is performed. 2. Left ventricular systolic function is normal, estimated at 60-65%. 3. There is moderate concentric increased left ventricular wall thickness. 4. The left ventricular diastolic function is grade I diastolic dysfunction. 5. Linear artifact in right ventricle suggestive of catheter(s), pacemaker lead(s), or ICD lead(s). 6. There is mild aortic valve sclerosis. 7. There is no aortic valve stenosis. 8. The mitral valve annulus is mildly calcified. Left Ventricle Left ventricular chamber dimension is normal. Left ventricular systolic function is normal, estimated at 60-65%. There is moderate concentric increased left ventricular wall thickness. The left ventricular diastolic function is grade I diastolic dysfunction. Right Ventricle Right ventricular chamber dimension is normal. Linear artifact in right ventricle suggestive of catheter(s), pacemaker lead(s), or ICD lead(s). Left Atria Left atrial chamber dimension is mildly enlarged. Right Atria Right atrial chamber dimension is normal. Aortic Valve The aortic valve is trileaflet. There is mild aortic valve sclerosis. There is no aortic valve stenosis. Pulmonic Valve The pulmonic valve is normal. Mitral Valve The mitral valve has normal leaflets. The mitral valve annulus is mildly calcified. Tricuspid Valve The tricuspid valve leaflets are normal. Pericardium/Pleural The pericardium appears normal. Aorta The aortic root size at the sinus of Valsalva is normal. Left Ventricular Outflow Tract Name Value Normal LVOT 2D LVOT Diameter 2.1 cm LVOT Doppler LVOT Peak Gradient 2 mmHg LVOT Mean Gradient 1 mmHg LVOT VTI 14 cm LVOT VTI/AV VTI Ratio 0.6 LVOT Stroke Volume 49 ml LVOT CO 2.9 l/min LVOT CI 1.9 l/min/m2 Pulmonic Valve Name Value Normal RVOT Doppler RVOT Peak Gradient 0 mmHg PV Doppler
[2022-05-06] MEDS: FLUTICASONE/SALMETEROL 230-21 MCG INHALER 1 PUFF 2 PUFF INHALATION ×2 (08:45→19:50)
[2022-05-06] MEDS: UMECLIDINIUM BROMIDE 62.5 MCG ELLIPTA 1 PUFF INHALATION (08:45)
--- NOTE | 2022-05-06 09:00 | WPDNEURCNPN ---
Assessment and Plan Assessment and plan (1) Seizure-like activity: Code(s): R56.9 - Unspecified convulsions Status: Acute Assessment and Plan: Mr. Donahue is a 66 year old male with a history of HTN, COPD, ESRD currently admitted for respiratory and renal failure, who had a transient episode of loss of awareness associated with RUE involuntary movements, that lasted about 20 minutes. Concern for possible seizure. - Will obtain routine EEG - Continue VPA 500mg BID - Given CrCl of 9, reduce Keppra to 250mg BID Consult date: 05/06/22 Time Seen: 12:42 Reason for consult: Seizure-like activity HPI: Sachin Donahue is a 66 year old male with a history of?ESRD on hemodialysis, hypertension, COPD. He presented earlier this week due to chest pain during dialysis. Troponins mildly elevated but EKG was unremarkable. He was also having some respiratory issues, requiring BiPAP. During ongoing evaluation or his renal, cardiac, and respiratory status, on 05/05 he had an episode of altered mental status with associated tremulousness of the right upper extremity that lasted about [address] minutes[address] He had a [address] head which was negative. He was previously on VPA 500mg BID and was started on Keppra 500mg BID yesterday evening. Patient's mental status reportedly returned to baseline shortly after the event. Today patient is not able to give much history. He is not able to tell when his last seizure was or how frequently they are occurring at baseline. Review of Systems Review of Systems: ROS unobtainable: Yes unobtainable due to mental status Neurologic: Reports as per HPI Psychiatric: Psychiatric: Reports confusion PMFSH Past Medical History Medical History COPD exacerbation COVID-19 End stage renal disease Hypertension Surgical History Surgical History History of percutaneous coronary intervention Iliac stent. Cardiac stents. Family History Family History Father Cancer of lung Mother Heart failure Social History Social History Social History: POA: Von, son Full code Smoking packs per day: 2 Smoking cigarettes per day: 40.0 Years smoked: 40 Smoking pack-years: 80.00 Smoking status: Current every day smoker Tobacco type: cigarettes Alcohol intake: never Substance use: never Spiritual care concerns: No Meds Home Medications and Allergies Home Medications Medication Instructions Recorded Confirmed Type aspirin 81 mg tablet,delayed 81 mg PO DAILY 03/19/22 05/04/22 History release atorvastatin 40 mg tablet 40 mg PO DAILY 03/19/22 05/04/22 History clonidine HCl 0.1 mg tablet 0.1 mg PO TID 03/19/22 05/04/22 History divalproex 500 mg tablet,extended 500 mg PO BID 03/19/22 05/04/22 History release 24 hr famotidine 20 mg tablet 20 mg PO HS 03/19/22 05/04/22 History hydralazine 50 mg tablet 100 mg PO TID 03/19/22 05/04/22 History nifedipine 90 mg tablet,extended 90 mg PO DAILY 03/19/22 05/04/22 History release oxybutynin chloride 10 mg 10 mg PO DAILY 03/19/22 05/04/22 History tablet,extended release 24 hr sodium bicarbonate 650 mg tablet 650 mg PO TID 03/19/22 05/04/22 History umeclidinium 62.5 mcg/actuation 1 inh inhalation DAILY 03/24/22 05/04/22 History blister powder for inhalation (Incruse Ellipta) fluticasone 500 mcg-salmeterol 50 1 inh inhalation BID 04/24/22 05/04/22 History mcg/dose blistr powdr for inhalation (Advair Diskus) isosorbide mononitrate 30 mg 30 mg PO DAILY 05/04/22 05/04/22 History tablet,extended release 24 hr Allergies Allergy/AdvReac Type Severity Reaction Status Date / Time No Known Allergies Allergy Verified 03/27/22 20:03 Vital Signs Vital Signs - 24 hr 05/05/22 10:00 05/05/22 12:00 05/05/22 12:00 Teri
[2022-05-06] MEDS: SODIUM BICARBONATE TAB 650 MG TABLET PO ×3 (09:14→17:17)
[2022-05-06] MEDS: NIFEdipine 30 MG TAB.ER.24 90 MG PO (09:14)
[2022-05-06] MEDS: cloNIDine HCL 0.1 MG TABLET PO ×3 (09:14→17:17)
[2022-05-06] MEDS: ISOSORBIDE MONONITRATE 30 MG TAB.ER.24H PO (09:14)
[2022-05-06] MEDS: hydrALAZINE HCL 50 MG TABLET 100 MG PO ×3 (09:14→17:16)
[2022-05-06] MEDS: DIVALPROEX SODIUM ER 500 MG TAB.24H PO ×2 (09:14→17:16)
[2022-05-06] MEDS: levETIRAcetam 500 MG TABLET PO (09:15)
[2022-05-06] MEDS: ASPIRIN 81 MG ENTERIC TABLET PO (09:15)
[2022-05-06] MEDS: ACETAMINOPHEN 500 MG TABLET 1000 MG PO (09:19)
[2022-05-06] MEDS: ATORVASTATIN 40 MG TABLET PO (10:12)
--- NOTE | 2022-05-06 11:16 | P.PNNP_ITS ---
Progress Note: A&P Assessment and Plan (1) End stage renal disease: Code(s): N18.6 - End stage renal disease Status: Chronic Assessment and Plan: * dialysis due tomorrow. * No swelling or crackles. * Electrolytes look okay (2) Chest pain: Code(s): R07.9 - Chest pain, unspecified Status: Acute Assessment and Plan: * this apparently occurred when on dialysis treatment * mildly elevated troponins noted but could be secondary to ESRD status * chest pain reproducible with palpation - an element of costochondritis(?) * follow telemetry, EKGs, and subsequent troponins * CT of chest without aneurysm or dissection * continue supportive therapy (3) Acute dyspnea: Code(s): R06.00 - Dyspnea, unspecified Status: Acute Assessment and Plan: * due to COPD versus mild fluid overload versus combination of both * imaging on presentation not impressive for overt fluid overload * breathing looks good right now. Will take a little more fluid off in dialysis. (4) Altered mental status: Code(s): R41.82 - Altered mental status, unspecified Status: Acute Assessment and Plan: * appears back to baseline currently * CT of brain negative * Neurology consulted * Eeg underway (5) Hypertension: Code(s): I10 - Essential (primary) hypertension Status: Chronic Assessment and Plan: * elevated on presentation * systolic ranging 110-140 * continue current meds (6) Hypokalemia: Code(s): E87.6 - Hypokalemia Status: Acute Assessment and Plan: * resolved Will continue to follow. Subjective Date/time seen: 05/06/22 11:16 Interval history: Patient lying flat in bed. getting EEG leads connected now. No shortness of breath. Exam Narrative: General: WD/WN male in NAD Heart: RRR no rub Lungs: coarse breath sounds Abdomen: soft, nontender, nondistended, positive bowel sounds Extremities: no cyanosis or clubbing; no edema Skin: no rash Objective Data Vital Signs Vital Signs: Vital Signs - 24 hr 05/05/22 12:00 05/05/22 12:00 05/05/22 12:00 Temperature 36.6 C Pulse Rate 68 82 Respiratory Rate 20 Blood Pressure 134/80 Pulse Oximetry 100 100 Oxygen Delivery Nasal Cannula Oxygen Flow Rate 2 05/05/22 14:00 05/05/22 16:22 05/05/22 16:22 Temperature 36.6 C Pulse Rate 66 78 Respiratory Rate 44 H Blood Pressure 118/77 Pulse Oximetry 99 100 Oxygen Delivery Nasal Cannula Oxygen Flow Rate 2 05/05/22 16:00 05/05/22 18:00 05/05/22 19:42 Temperature Pulse Rate 65 60 Respiratory Rate 20 Blood Pressure Pulse Oximetry Oxygen Delivery Oxygen Flow Rate 05/05/22 20:14 05/05/22 20:00 05/05/22 20:00 Temperature Pulse Rate 71 62 71 Respiratory Rate 18 18 Blood Pressure Pulse Oximetry 100 Oxygen Delivery Nasal Cannula Oxygen Flow Rate 2 05/05/22 20:00 05/05/22 22:00 05/05/22 22:05 Temperature 36.2 C L Pulse Rate 67 60 Respiratory Rate 2
--- NOTE | 2022-05-06 11:16 | PM.PNNEP ---
Progress Note: A&P Assessment and Plan (1) End stage renal disease: Code(s): N18.6 - End stage renal disease Status: Chronic Assessment and Plan: dialysis due tomorrow. No swelling or crackles. Electrolytes look okay (2) Chest pain: Code(s): R07.9 - Chest pain, unspecified Status: Acute Assessment and Plan: this apparently occurred when on dialysis treatment mildly elevated troponins noted but could be secondary to ESRD status chest pain reproducible with palpation - an element of costochondritis(?) follow telemetry, EKGs, and subsequent troponins CT of chest without aneurysm or dissection continue supportive therapy (3) Acute dyspnea: Code(s): R06.00 - Dyspnea, unspecified Status: Acute Assessment and Plan: due to COPD versus mild fluid overload versus combination of both imaging on presentation not impressive for overt fluid overload breathing looks good right now. Will take a little more fluid off in dialysis. (4) Altered mental status: Code(s): R41.82 - Altered mental status, unspecified Status: Acute Assessment and Plan: appears back to baseline currently CT of brain negative Neurology consulted Eeg underway (5) Hypertension: Code(s): I10 - Essential (primary) hypertension Status: Chronic Assessment and Plan: elevated on presentation systolic ranging 110-140 continue current meds (6) Hypokalemia: Code(s): E87.6 - Hypokalemia Status: Acute Assessment and Plan: resolved Will continue to follow. Subjective Date/time seen: 05/06/22 11:16 Interval history: Patient lying flat in bed. getting EEG leads connected now. No shortness of breath. Exam Narrative: General: WD/WN male in NAD Heart: RRR no rub Lungs: coarse breath sounds Abdomen: soft, nontender, nondistended, positive bowel sounds Extremities: no cyanosis or clubbing; no edema Skin: no rash Objective Data Vital Signs Vital Signs: Vital Signs - 24 hr 05/05/22 12:00 05/05/22 12:00 05/05/22 12:00 Temperature 36.6 C Pulse Rate 68 82 Respiratory Rate 20 Blood Pressure 134/80 Pulse Oximetry 100 100 Oxygen Delivery Nasal Cannula Oxygen Flow Rate 2 05/05/22 14:00 05/05/22 16:22 05/05/22 16:22 Temperature 36.6 C Pulse Rate 66 78 Respiratory Rate 44 H Blood Pressure 118/77 Pulse Oximetry 99 100 Oxygen Delivery Nasal Cannula Oxygen Flow Rate 2 05/05/22 16:00 05/05/22 18:00 05/05/22 19:42 Temperature Pulse Rate 65 60 Respiratory Rate 20 Blood Pressure Pulse Oximetry Oxygen Delivery Oxygen Flow Rate 05/05/22 20:14 05/05/22 20:00 05/05/22 20:00 Temperature Pulse Rate 71 62 71 Respiratory Rate 18 18 Blood Pressure Pulse Oximetry 100 Oxygen Delivery Nasal Cannula Oxygen Flow Rate 2 05/05/22 20:00 05/05/22 22:00 05/05/22 22:05 Temperature 36.2 C L Pulse Rate 67 60 Respiratory Rate 22 H Blood Pressure 114/73 Pulse Oximetry 100 100 Oxygen Delivery Room Air Oxygen Flow Rate 05/06/22 00:00 05/06/22 00:00 05/06/22 00:44 Temperature 36.4 C Pulse Rate 70 70 71 Respiratory Rate 18 18 Blood Pressure 112/53 L Pulse Oximetry 100 100 99 Oxygen Delivery Room Air Oxygen Flow Rate 05/06/22 00:00 05/06/22 02:00 05/06/22 04:00 Temperature 36.4 C Pulse Rate 78 61 60 Respiratory Rate 18 Blood Pressure 129/85 Pulse Oximetry 97 Oxygen Delivery Oxygen Flow Rate 05/06/22 04:00 05/06/22 06:00 05/06/22 04:00 Temperature Pulse Rate 76 60 Respiratory Rate Blood Pressure Pulse Oximetry Oxygen Delivery Room Air Oxygen Flow Rate 05/06/22 08:47 05/06/22 08:00 05/06/22 08:00 Temperature 36.7 C Pulse Rate 64 60 Respiratory Rate 18 Blood Pressure 142/96 H Pulse Oximetry 96 100 Oxygen Delivery Room Air Oxygen Flow Rate
--- NOTE | 2022-05-06 13:38 | WPDNEUROLOGY ---
Neurology EEG Report General Information Date of Study: 05/06/22 TEST Routine EEG DIAGNOSIS Seizure; Altered Mental Status CONDITION OF RECORDING Awake and drowsy EEG NUMBER [id number] CLINICAL HISTORY Mr. Donahue is a 66 year old male with a history of HTN, COPD, ESRD currently admitted for respiratory and renal failure, who had a transient episode of loss of awareness associated with RUE involuntary movements, that lasted about 20 minutes. Concern for possible seizure. EEG DESCRIPTION During the awake state with eyes closed the background consists of 9 Hz posterior dominant rhythm which attenuates appropriately with eye opening. The recording is continuous. There is a well developed anterior-posterior gradient. No significant asymmetries of background activities are noted. With drowsiness there is was waxing and waning of the dominant rhythm with eventual replacement by a mixture of alpha, and theta activity. Patient did not enter stage II sleep. There are no epileptiform discharges or seizures during this recording. Hyperventilation and photic stimulation were not performed. IMPRESSION This is a normal routine EEG recorded in awake and drowsy states. There are no electrographic seizures identified, nor are there any epileptiform discharges. Please note that a normal EEG cannot exclude a seizure disorder. Clinical correlation is recommended.
--- NOTE | 2022-05-06 18:14 | P.PNIM_ITS ---
Progress Note: A&P Assessment and Plan (1) Acute respiratory failure: Code(s): J96.00 - Acute respiratory failure, unspecified whether with hypoxia or hypercapnia Status: Acute (2) Lung nodule: Code(s): R91.1 - Solitary pulmonary nodule Status: Acute (3) Hypokalemia: Code(s): E87.6 - Hypokalemia Status: Acute (4) Chest pain: Code(s): R07.9 - Chest pain, unspecified Status: Acute (5) Hypertensive urgency: Code(s): I16.0 - Hypertensive urgency Status: Acute (6) End stage kidney disease: Code(s): N18.6 - End stage renal disease Status: Acute (7) Tobacco dependence: Code(s): F17.200 - Nicotine dependence, unspecified, uncomplicated Status: Acute (8) Altered mental status: Code(s): R41.82 - Altered mental status, unspecified Status: Acute Plan Atypical.? Presented with chest pain while in dialysis * Troponin mildly elevated on presentation, however likely due to end-stage renal disease. Levels consistent with prior readings earlier this month * Trend troponins * EKG reviewed without acute changes. Some mild nonspecific changes from prior EKG which may be due to lead placement. Will repeat. * Chest CTA with no aneurysm or dissection * Pain reproducible with palpation of chest wall * May be related to anxiety. Similar symptoms at last hospitalization 10 days prior. Patient presented with respiratory distress with O2 sat in the 80s * Placed on BiPAP with overall improvement in respiratory status * Likely due to volume overload though chest CT not significant for pulmonary edema/pleural effusion * No wheezing on exam to suggest COPD exacerbation.? Continue maintenance inhalers * Patient received Bumex in the ED with improvement * Anticipate resolution following fluid volume management with dialysis Maintained on hemodialysis * Last dialysis was .? Did not receive today at outpatient appointment due to chest pain * Nephrology has been consulted for dialysis management * Planning for dialysis today * Continue dialysis schedule Potassium 3.0 on admission * Will defer supplementation to Nephrology Blood pressure reviewed and has been stable. Last BP 126/74. * Received labetalol on presentation. * Resume home antihypertensives following medication reconciliation * Monitor BP trends CTA on presentation revealed 4 mm lung nodule of left lower lobe. * Not evident on any prior imaging * Recommend follow up CT in 12 months [employer] called 05/04/22 for acute mental status change and tremor or RUE, pt returned to baseline within 20min of event, extensive workup performed without etiology, neuro consult and EEG pending 05/05/22 spoke w neuro reviewed medical findings and events of yesterday recommends [facility] BECKER will see pt in am cont supportive care 1:1 sitter monitor resp status neurochecks 05/06/22 seen by neuro today recommendations appreciated ESRD HD per nephro cont current care waxing and waning mental status unclear if seizure activity defer to neuro Subjective Date/time seen: 05/06/22 18:14 pt awakened from sleep , again speaking nonsense says his name is Juan, but sits up and feeds himself, appropriately selecting pepper pack from salt and creamer packets to pour on his mashed potatoes. Review of Systems Review of Systems: ROS unobtainable: Yes unobtainable due to mental status Exam Narrative: General: NAD drowsy Lungs: no use of accessory muscles, symmetric christos
--- NOTE | 2022-05-06 18:14 | PM.IMPN ---
Progress Note: A&P Assessment and Plan (1) Acute respiratory failure: Code(s): J96.00 - Acute respiratory failure, unspecified whether with hypoxia or hypercapnia Status: Acute (2) Lung nodule: Code(s): R91.1 - Solitary pulmonary nodule Status: Acute (3) Hypokalemia: Code(s): E87.6 - Hypokalemia Status: Acute (4) Chest pain: Code(s): R07.9 - Chest pain, unspecified Status: Acute (5) Hypertensive urgency: Code(s): I16.0 - Hypertensive urgency Status: Acute (6) End stage kidney disease: Code(s): N18.6 - End stage renal disease Status: Acute (7) Tobacco dependence: Code(s): F17.200 - Nicotine dependence, unspecified, uncomplicated Status: Acute (8) Altered mental status: Code(s): R41.82 - Altered mental status, unspecified Status: Acute Plan Atypical.? Presented with chest pain while in dialysis Troponin mildly elevated on presentation, however likely due to end-stage renal disease. Levels consistent with prior readings earlier this month Trend troponins EKG reviewed without acute changes. Some mild nonspecific changes from prior EKG which may be due to lead placement. Will repeat. Chest CTA with no aneurysm or dissection Pain reproducible with palpation of chest wall May be related to anxiety. Similar symptoms at last hospitalization 10 days prior. Patient presented with respiratory distress with O2 sat in the 80s Placed on BiPAP with overall improvement in respiratory status Likely due to volume overload though chest CT not significant for pulmonary edema/pleural effusion No wheezing on exam to suggest COPD exacerbation.? Continue maintenance inhalers Patient received Bumex in the ED with improvement Anticipate resolution following fluid volume management with dialysis Maintained on hemodialysis Last dialysis was .? Did not receive today at outpatient appointment due to chest pain Nephrology has been consulted for dialysis management Planning for dialysis today Continue dialysis schedule Potassium 3.0 on admission Will defer supplementation to Nephrology Blood pressure reviewed and has been stable. Last BP 126/74. Received labetalol on presentation. Resume home antihypertensives following medication reconciliation Monitor BP trends CTA on presentation revealed 4 mm lung nodule of left lower lobe. Not evident on any prior imaging Recommend follow up CT in 12 months [employer] called 05/04/22 for acute mental status change and tremor or RUE, pt returned to baseline within 20min of event, extensive workup performed without etiology, neuro consult and EEG pending 05/05/22 spoke w neuro reviewed medical findings and events of yesterday recommends [facility] will see pt in am cont supportive care 1:1 sitter monitor resp status neurochecks 05/06/22 seen by neuro today recommendations appreciated ESRD HD per nephro cont current care waxing and waning mental status unclear if seizure activity defer to neuro Subjective Date/time seen: 05/06/22 18:14 pt awakened from sleep , again speaking nonsense says his name is Juan, but sits up and feeds himself, appropriately selecting pepper pack from salt and creamer packets to pour on his mashed potatoes. Review of Systems Review of Systems: ROS unobtainable: Yes unobtainable due to mental status Exam Narrative: General: NAD drowsy Lungs: no use of accessory muscles, symmetric chest rise Abdomen: soft, nontender, nondistended Extremities: no cyanosis or clubbing; no edema Skin: no rash Objective Data Vital Signs Vital Signs: Vital Signs - 24 hr 05/05/22 19:42 05/05/22 20:14 05/05/22 20:00 Temperature Pulse Rate 71 62 Respiratory Rate 20 18 Blood Pressure Pulse Oximetry Oxygen Delivery Oxygen Flow Rate 05/05/22 20:00 05/05/22 20:00 05/05/22 22:00 Temperature 97.2 F L Pulse Rate 71 67 60 Respiratory Ra
[2022-05-06] MEDS: levETIRAcetam 250 MG TABLET PO (21:31)
[2022-05-06] MEDS: FAMOTIDINE 20 MG TABLET PO (21:31)
[2022-05-07] VITALS (30 sets, daily range): BP systolic 96–155; BP diastolic 51–95; PULSE 60–89; RESP 16–20; TEMP 36–37; O2SAT 94–99
[2022-05-07 05:31] LABS: Albumin Level 3.8 g/dL (3.5-5.1); Anion Gap 11 mmol/L (8-16); Blood Urea Nitrogen 46 mg/dL (9-20); Carbon Dioxide 28 mmol/L (22-30); Chloride 95 mmol/L (98-107); Estimated CRCL calculation 9 ml/min; Estimated Glomerular Filt Rate 9; Glucose 94 mg/dL (65-110); Phosphorus 5.5 mg/dL (2.5-4.5); Sodium 134 mmol/L (137-145)
--- NOTE | 2022-05-07 07:42 | PM.PNNEP ---
Progress Note: A&P Assessment and Plan (1) End stage renal disease: Code(s): N18.6 - End stage renal disease Status: Chronic Assessment and Plan: The patient is due for dialysis today. Will take a little bit of fluid off. Potassium is okay will do a 3K bath. (2) Chest pain: Code(s): R07.9 - Chest pain, unspecified Status: Acute Assessment and Plan: Evaluation per Dr. Cavazos he has chest wall tenderness. (3) Acute dyspnea: Code(s): R06.00 - Dyspnea, unspecified Status: Acute Assessment and Plan: Breathing is better now. (4) Altered mental status: Code(s): R41.82 - Altered mental status, unspecified Status: Acute Assessment and Plan: Neurology is seeing the patient. This is vision is seizure activity. He was placed on Keppra twice a day. (5) Hypertension: Code(s): I10 - Essential (primary) hypertension Status: Chronic Assessment and Plan: Systolic mostly 110-130. Occasionally above that. Will follow for trending. Continue same medication. (6) Hypokalemia: Code(s): E87.6 - Hypokalemia Status: Acute Assessment and Plan: Resolved Subjective Date/time seen: 05/07/22 07:42 Interval history: Patient lying flat in bed. he can say some words but sometimes has babbling speech. Review of Systems Cardiovascular: Cardiovascular: Reports no additional cardiovascular complaints Respiratory: Respiratory: Reports no additional respiratory complaints Gastrointestinal: Gastrointestinal: Reports no additional gastrointestinal complaints Genitourinary: Genitourinary: Reports no additional male genitourinary complaints Exam Narrative: WDWN in NAD skin no rash head ncat lungs clear cor reg no rub abd BS+ nontender and soft ext no edema. Objective Data Vital Signs Vital Signs: Vital Signs - 24 hr 05/06/22 08:47 05/06/22 08:00 05/06/22 08:00 Temperature 36.7 C Pulse Rate 64 60 Respiratory Rate 18 Blood Pressure 142/96 H Pulse Oximetry 96 100 Oxygen Delivery Room Air 05/06/22 10:00 05/06/22 08:00 05/06/22 12:00 Temperature 36.8 C Pulse Rate 75 66 Respiratory Rate 24 H Blood Pressure 152/73 H Pulse Oximetry 98 97 Oxygen Delivery Room Air 05/06/22 12:00 05/06/22 12:00 05/06/22 14:00 Temperature Pulse Rate 70 65 Respiratory Rate Blood Pressure Pulse Oximetry 96 Oxygen Delivery Room Air 05/06/22 16:22 05/06/22 16:00 05/06/22 16:00 Temperature 36.5 C Pulse Rate 65 65 Respiratory Rate 20 Blood Pressure 126/72 Pulse Oximetry 98 97 Oxygen Delivery Room Air 05/06/22 18:00 05/06/22 19:53 05/06/22 19:53 Temperature Pulse Rate 66 69 69 Respiratory Rate Blood Pressure Pulse Oximetry 96 Oxygen Delivery Room Air 05/06/22 20:00 05/06/22 20:00 05/06/22 23:48 Temperature 36.6 C 36.8 C Pulse Rate 64 60 Respiratory Rate 18 18 Blood Pressure 108/70 126/76 Pulse Oximetry 96 99 Oxygen Delivery Room Air 05/07/22 00:00 05/06/22 20:00 05/06/22 22:00 Temperature Pulse Rate 78 60 Respiratory Rate Blood Pressure Pulse Oximetry Oxygen Delivery Room Air 05/07/22 00:00 05/07/22 02:00 05/07/22 03:29 Temperature 36.6 C Pulse Rate 65 69 63 Respiratory Rate 18 Blood Pressure 135/72 Pulse Oximetry 99 Oxygen Delivery 05/07/22 04:00 05/07/22 04:00 05/07/22 06:00 Temperature Pulse Rate 60 60 Respiratory Rate Blood Pressure Pulse Oximetry Oxygen Delivery Room Air Intake/Output Intake/Output: Intake & Output 05/04/22 05/05/22 05/06/22 05/07/22 23:59 23:59 23:59 23:59 Intake Total 100 940 600 Output Total 845 900 550 925 Balance -745 40 50 -925 Meds/Results Medications: Active Medications Generic Name Dose Route Start Last Admin Trade Name Freq PRN Reason Stop Dose Admin Acetaminophen 1,000 mg 05/04/22
[2022-05-07] MEDS: FLUTICASONE/SALMETEROL 230-21 MCG INHALER 1 PUFF 2 PUFF INHALATION ×2 (08:30→20:11)
[2022-05-07] MEDS: hydrALAZINE HCL 50 MG TABLET 100 MG PO ×3 (08:44→18:52)
[2022-05-07] MEDS: ISOSORBIDE MONONITRATE 30 MG TAB.ER.24H PO (08:45)
[2022-05-07] MEDS: SODIUM BICARBONATE TAB 650 MG TABLET PO ×3 (08:45→18:51)
[2022-05-07] MEDS: DIVALPROEX SODIUM ER 500 MG TAB.24H PO ×2 (08:45→18:51)
[2022-05-07] MEDS: NIFEdipine 30 MG TAB.ER.24 90 MG PO (08:45)
[2022-05-07] MEDS: levETIRAcetam 250 MG TABLET PO ×2 (08:45→21:34)
[2022-05-07] MEDS: ASPIRIN 81 MG ENTERIC TABLET PO (08:45)
[2022-05-07] MEDS: ATORVASTATIN 40 MG TABLET PO (08:45)
[2022-05-07] MEDS: cloNIDine HCL 0.1 MG TABLET PO ×3 (08:46→18:52)
[2022-05-07] MEDS: UMECLIDINIUM BROMIDE 62.5 MCG ELLIPTA 1 PUFF INHALATION (08:56)
--- NOTE | 2022-05-07 10:22 | P.PNIM_ITS ---
Progress Note: A&P Assessment and Plan (1) Acute respiratory failure: Code(s): J96.00 - Acute respiratory failure, unspecified whether with hypoxia or hypercapnia Status: Acute (2) Lung nodule: Code(s): R91.1 - Solitary pulmonary nodule Status: Acute (3) Hypokalemia: Code(s): E87.6 - Hypokalemia Status: Acute (4) Chest pain: Code(s): R07.9 - Chest pain, unspecified Status: Acute (5) Hypertensive urgency: Code(s): I16.0 - Hypertensive urgency Status: Acute (6) End stage kidney disease: Code(s): N18.6 - End stage renal disease Status: Acute (7) Tobacco dependence: Code(s): F17.200 - Nicotine dependence, unspecified, uncomplicated Status: Acute (8) Altered mental status: Code(s): R41.82 - Altered mental status, unspecified Status: Acute Plan Atypical.? Presented with chest pain while in dialysis * Troponin mildly elevated on presentation, however likely due to end-stage renal disease. Levels consistent with prior readings earlier this month * Trend troponins * EKG reviewed without acute changes. Some mild nonspecific changes from prior EKG which may be due to lead placement. Will repeat. * Chest CTA with no aneurysm or dissection * Pain reproducible with palpation of chest wall * May be related to anxiety. Similar symptoms at last hospitalization 10 days prior. Patient presented with respiratory distress with O2 sat in the 80s * Placed on BiPAP with overall improvement in respiratory status * Likely due to volume overload though chest CT not significant for pulmonary edema/pleural effusion * No wheezing on exam to suggest COPD exacerbation.? Continue maintenance inhalers * Patient received Bumex in the ED with improvement * Anticipate resolution following fluid volume management with dialysis Maintained on hemodialysis * Last dialysis was .? Did not receive today at outpatient appointment due to chest pain * Nephrology has been consulted for dialysis management * Planning for dialysis today * Continue dialysis schedule Potassium 3.0 on admission * Will defer supplementation to Nephrology Blood pressure reviewed and has been stable. Last BP 126/74. * Received labetalol on presentation. * Resume home antihypertensives following medication reconciliation * Monitor BP trends CTA on presentation revealed 4 mm lung nodule of left lower lobe. * Not evident on any prior imaging * Recommend follow up CT in 12 months [employer] called 05/04/22 for acute mental status change and tremor or RUE, pt returned to baseline within 20min of event, extensive workup performed without etiology, neuro consult and EEG pending 05/05/22 spoke w neuro reviewed medical findings and events of yesterday recommends [facility] will see pt in am cont supportive care 1:1 sitter monitor resp status neurochecks 05/06/22 seen by neuro today recommendations appreciated ESRD HD per nephro cont current care waxing and waning mental status unclear if seizure activity defer to neuro 05/07/22 pt AAOx3 today reports that he thinks his intermittent AMS is medication related cont current care blood and sputum cultures negative on home meds at present neuro following nephro following dc planning (pt lives alone, not sure this is appropriate at this time) PT/OT eval for SNF Subjective Date/time seen: 05/07/22 10:22 pt doing ok, when questioned about his mental status changes pt blames medication. He states that he takes to many pills
--- NOTE | 2022-05-07 10:22 | PM.IMPN ---
Progress Note: A&P Assessment and Plan (1) Acute respiratory failure: Code(s): J96.00 - Acute respiratory failure, unspecified whether with hypoxia or hypercapnia Status: Acute (2) Lung nodule: Code(s): R91.1 - Solitary pulmonary nodule Status: Acute (3) Hypokalemia: Code(s): E87.6 - Hypokalemia Status: Acute (4) Chest pain: Code(s): R07.9 - Chest pain, unspecified Status: Acute (5) Hypertensive urgency: Code(s): I16.0 - Hypertensive urgency Status: Acute (6) End stage kidney disease: Code(s): N18.6 - End stage renal disease Status: Acute (7) Tobacco dependence: Code(s): F17.200 - Nicotine dependence, unspecified, uncomplicated Status: Acute (8) Altered mental status: Code(s): R41.82 - Altered mental status, unspecified Status: Acute Plan Atypical.? Presented with chest pain while in dialysis Troponin mildly elevated on presentation, however likely due to end-stage renal disease. Levels consistent with prior readings earlier this month Trend troponins EKG reviewed without acute changes. Some mild nonspecific changes from prior EKG which may be due to lead placement. Will repeat. Chest CTA with no aneurysm or dissection Pain reproducible with palpation of chest wall May be related to anxiety. Similar symptoms at last hospitalization 10 days prior. Patient presented with respiratory distress with O2 sat in the 80s Placed on BiPAP with overall improvement in respiratory status Likely due to volume overload though chest CT not significant for pulmonary edema/pleural effusion No wheezing on exam to suggest COPD exacerbation.? Continue maintenance inhalers Patient received Bumex in the ED with improvement Anticipate resolution following fluid volume management with dialysis Maintained on hemodialysis Last dialysis was .? Did not receive today at outpatient appointment due to chest pain Nephrology has been consulted for dialysis management Planning for dialysis today Continue dialysis schedule Potassium 3.0 on admission Will defer supplementation to Nephrology Blood pressure reviewed and has been stable. Last BP 126/74. Received labetalol on presentation. Resume home antihypertensives following medication reconciliation Monitor BP trends CTA on presentation revealed 4 mm lung nodule of left lower lobe. Not evident on any prior imaging Recommend follow up CT in 12 months [employer] called 05/04/22 for acute mental status change and tremor or RUE, pt returned to baseline within 20min of event, extensive workup performed without etiology, neuro consult and EEG pending 05/05/22 spoke w neuro reviewed medical findings and events of yesterday recommends [facility] will see pt in am cont supportive care 1:1 sitter monitor resp status neurochecks 05/06/22 seen by neuro today recommendations appreciated ESRD HD per nephro cont current care waxing and waning mental status unclear if seizure activity defer to neuro 05/07/22 pt AAOx3 today reports that he thinks his intermittent AMS is medication related cont current care blood and sputum cultures negative on home meds at present neuro following nephro following dc planning (pt lives alone, not sure this is appropriate at this time) PT/OT eval for SNF Subjective Date/time seen: 05/07/22 10:22 pt doing ok, when questioned about his mental status changes pt blames medication. He states that he takes to many pills and they make him confused sometimes. Pt lives alone w his dogs. Takes medcab to HD. Agrees to allow me to speak w his son to request more support for him. Review of Systems Review of Systems: All systems reviewed & are unremarkable except as noted in HPI and below Exam Narrative: General: NAD oriented speaking clearly Lungs: no use of accessory muscles, symmetric chest rise, CTA b/l Abdomen: soft, nontender, nondistended Extremi
[2022-05-07] MEDS: ACETAMINOPHEN 500 MG TABLET 1000 MG PO ×2 (12:27→18:50)
--- NOTE | 2022-05-07 14:45 | PC.NURSE ---
Patient taken to dialysis
--- NOTE | 2022-05-07 15:30 | PCPTNOTE ---
attempted eval 1530, pt not available-- out of room for dialysis.
[2022-05-07] MEDS: EPOETIN ALFA 10,000 UNITS/ML VIAL 10000 UNITS IV PUSH (17:15)
[2022-05-07] MEDS: HEPARIN SODIUM 1,000 UNITS/ML VIAL 6000 UNITS (17:16)
[2022-05-07] MEDS: HEPARIN SODIUM 5,000 UNITS/ML VIAL 5000 UNITS SUB-Q (21:23)
[2022-05-07] MEDS: FAMOTIDINE 20 MG TABLET PO (21:24)
[2022-05-08] VITALS (16 sets, daily range): BP systolic 124–186; BP diastolic 58–90; PULSE 60–95; RESP 18–22; TEMP 36.2–36.8; O2SAT 95–100
[2022-05-08 05:49] LABS: Anion Gap 9 mmol/L (8-16); Blood Urea Nitrogen 20 mg/dL (9-20); Calcium 8.5 mg/dL (8.4-10.2); Carbon Dioxide 35 mmol/L (22-30); Chloride 96 mmol/L (98-107); Estimated CRCL calculation 15 ml/min; Estimated Glomerular Filt Rate 16; Glucose 82 mg/dL (65-110); Phosphorus 3.6 mg/dL (2.5-4.5); Potassium 3.5 mmol/L (3.4-5.0); Sodium 140 mmol/L (137-145)
[2022-05-08] MEDS: ACETAMINOPHEN 500 MG TABLET 1000 MG PO ×2 (06:28→18:24)
--- NOTE | 2022-05-08 07:31 | PM.PNNEP ---
Progress Note: A&P Assessment and Plan (1) End stage renal disease: Code(s): N18.6 - End stage renal disease Status: Chronic Assessment and Plan: The patient is due for dialysis tomorrow will write orders for same. Volume status looks okay. Electrolytes look okay. (2) Chest pain: Code(s): R07.9 - Chest pain, unspecified Status: Acute Assessment and Plan: Evaluation per Hospitalists. he still has chest wall tenderness. (3) Acute dyspnea: Code(s): R06.00 - Dyspnea, unspecified Status: Acute Assessment and Plan: Breathing is comfortable now. (4) Altered mental status: Code(s): R41.82 - Altered mental status, unspecified Status: Acute Assessment and Plan: Neurology is seeing the patient. This is vision is seizure activity. He is on Keppra twice a day. he continues to have babbling speech even when white awake. (5) Hypertension: Code(s): I10 - Essential (primary) hypertension Status: Chronic Assessment and Plan: Systolic is variable, ranging 106-160. He is on clonidine 0.1 t.i.d., hydralazine 100 t.i.d., nifedipine 90 daily. He is on 2 short-acting drugs which may contribute to the [place] hypertension. Will change him to lisinopril and try to get rid of the clonidine. (6) Hypokalemia: Code(s): E87.6 - Hypokalemia Status: Acute Assessment and Plan: Resolved Subjective Date/time seen: 05/08/22 07:30 Interval history: Patient lying flat in bed. No chest pain or shortness of breath he has not had a bowel movement for a while he says. He feels somewhat full he can say some words but sometimes has babbling speech. Exam Narrative: WDWN in NAD skin no rash head ncat lungs clear cor reg no rub abd BS+ nontender and soft. heavy palpation produces no discomfort. ext no edema. Objective Data Vital Signs Vital Signs: Vital Signs - 24 hr 05/07/22 16:00 05/07/22 17:00 05/07/22 16:40 Temperature Pulse Rate 60 60 60 Respiratory Rate Blood Pressure 123/78 123/75 Pulse Oximetry Oxygen Delivery 05/07/22 17:20 05/07/22 17:40 05/07/22 18:45 Temperature 36.5 C Pulse Rate 82 60 60 Respiratory Rate 16 Blood Pressure 132/84 123/73 135/79 Pulse Oximetry Oxygen Delivery 05/07/22 18:00 05/07/22 16:20 05/07/22 16:00 Temperature Pulse Rate 67 67 60 Respiratory Rate Blood Pressure 142/82 H 145/84 H 128/83 Pulse Oximetry Oxygen Delivery 05/07/22 15:40 05/07/22 18:00 05/07/22 18:50 Temperature 36.1 C L Pulse Rate 60 63 72 Respiratory Rate 18 Blood Pressure 96/58 L 155/85 H Pulse Oximetry 96 Oxygen Delivery 05/07/22 18:20 05/07/22 18:30 05/07/22 20:16 Temperature Pulse Rate 61 89 69 Respiratory Rate Blood Pressure 131/76 151/95 H Pulse Oximetry 94 Oxygen Delivery Room Air 05/07/22 20:00 05/07/22 20:00 05/07/22 20:00 Temperature 36.4 C Pulse Rate 71 62 Respiratory Rate 20 Blood Pressure 106/51 L Pulse Oximetry 96 Oxygen Delivery Room Air 05/07/22 22:00 05/07/22 23:58 05/08/22 00:00 Temperature 36.7 C Pulse Rate 60 64 62 Respiratory Rate 20 Blood Pressure 143/84 H Pulse Oximetry 99 Oxygen Delivery 05/08/22 00:00 05/08/22 02:00 05/08/22 04:00 Temperature Pulse Rate 60 Respiratory Rate Blood Pressure Pulse Oximetry Oxygen Delivery Room Air Room Air 05/08/22 04:00 05/08/22 04:00 05/08/22 06:00 Temperature 36.5 C Pulse Rate 60 60 75 Respiratory Rate 22 H Blood Pressure 162/73 H Pulse Oximetry 98 Oxygen Delivery 05/08/22 08:00 05/08/22 09:05 05/08/22 09:05 Temperature 36.2 C L Pulse Rate 60 68 Respiratory Rate 18 Blood Pressure 186/81 H Pulse Oximetry 99 96 Oxygen Delivery Room Air Room Air 05/08/22 12:00 05/08/22 12:00 05/08/22 12:21 Temperature 36.6 C
[2022-05-08] MEDS: FLUTICASONE/SALMETEROL 230-21 MCG INHALER 1 PUFF 2 PUFF INHALATION ×2 (09:02→19:31)
[2022-05-08] MEDS: UMECLIDINIUM BROMIDE 62.5 MCG ELLIPTA 1 PUFF INHALATION (09:02)
[2022-05-08] MEDS: ISOSORBIDE MONONITRATE 30 MG TAB.ER.24H PO (09:07)
[2022-05-08] MEDS: ATORVASTATIN 40 MG TABLET PO (09:08)
[2022-05-08] MEDS: DIVALPROEX SODIUM ER 500 MG TAB.24H PO ×2 (09:08→16:47)
[2022-05-08] MEDS: SODIUM BICARBONATE TAB 650 MG TABLET PO ×2 (09:08→16:47)
[2022-05-08] MEDS: hydrALAZINE HCL 50 MG TABLET 100 MG PO ×2 (09:08→16:46)
[2022-05-08] MEDS: ASPIRIN 81 MG ENTERIC TABLET PO (09:08)
[2022-05-08] MEDS: cloNIDine HCL 0.1 MG TABLET PO ×2 (09:08→23:27)
[2022-05-08] MEDS: levETIRAcetam 250 MG TABLET PO ×2 (09:08→22:03)
[2022-05-08] MEDS: HEPARIN SODIUM 5,000 UNITS/ML VIAL 5000 UNITS SUB-Q ×2 (09:09→22:03)
[2022-05-08] MEDS: NIFEdipine 30 MG TAB.ER.24 90 MG PO (09:09)
--- NOTE | 2022-05-08 10:14 | P.PNIM_ITS ---
Progress Note: A&P Assessment and Plan (1) Seizure-like activity: Code(s): R56.9 - Unspecified convulsions Status: Acute (2) Altered mental status: Code(s): R41.82 - Altered mental status, unspecified Status: Acute (3) Acute respiratory failure: Code(s): J96.00 - Acute respiratory failure, unspecified whether with hypoxia or hypercapnia Status: Acute (4) Chest pain: Code(s): R07.9 - Chest pain, unspecified Status: Acute (5) Lung nodule: Code(s): R91.1 - Solitary pulmonary nodule Status: Acute (6) Hypokalemia: Code(s): E87.6 - Hypokalemia Status: Acute (7) End stage kidney disease: Code(s): N18.6 - End stage renal disease Status: Acute (8) Tobacco dependence: Code(s): F17.200 - Nicotine dependence, unspecified, uncomplicated Status: Acute Plan Seizure-like activity * Patient continues with neurologic symptoms now having persistent nonsensical speech. Possible seizures? * EEG normal. CT brain normal on 05/04. * Will repeat CT brain to exclude recent CVA. No MR brain because he has pacer. Check TSH, B12, RPR * Check orthostatic vital signs given his leg weakness when walking. * Continue Keppra and Divalproex Atypical CP.? Pt presented with chest pain while in dialysis * Troponin mildly elevated on presentation, however likely due to end-stage renal disease. Levels consistent with prior readings earlier this month * Discussed with radiology. No obvious central PE by CTA chest on 05/04. * Chest/Abd/Pelvis CT negative for dissection * EKG reviewed without acute changes. Some mild nonspecific changes from prior EKG which may be due to lead placement. * Pain reproducible with palpation of chest wall * May be related to anxiety. Similar symptoms at last hospitalization 10 days prior. Acute Resp Failure. Pt presented with respiratory distress with O2 sat in the 80s * Placed on BiPAP with overall improvement in respiratory status * Likely due to volume overload though chest CT not significant for pulmonary edema/pleural effusion * No wheezing on exam to suggest COPD exacerbation.? Continue maintenance inhalers * Patient received Bumex in the ED with improvement * Sx resolved following fluid volume management with dialysis Maintained on hemodialysis * Last dialysis was [facility].? No HD on day of admission * Nephrology was consulted for dialysis management * Euvolemic. * Continue dialysis schedule Blood pressure reviewed and has been stable. * Received labetalol on presentation. * Home antihypertensives resumed * BP remain stable CTA on presentation revealed 4 mm lung nodule of left lower lobe. * Not evident on any prior imaging * Recommend follow up CT in 12 months Subjective Date/time seen: 05/08/22 10:14 Interval history: 66yo male with ESRD, HTN, and COPD who presents to emergency room with complaints of chest pain. Assuming care. Chart reviewed. Staff in the room stay patient did eat breakfast well this morning without difficulty. Later in the morning, he was found difficult to arouse. When he was more awake, he was verbal with repetitive sounds. Patient is making nonsensical verbal sounds but no words could be made out. He interacts with the provider and does point to the left side of his abdomen when asked if he has pain. Difficulty obtaining any clear history. Patient was able to stand and walk but then his legs began to give out and a chair was brought in for him to sit. He did not have any seizure like activity.
--- NOTE | 2022-05-08 10:14 | PM.IMPN ---
Progress Note: A&P Assessment and Plan (1) Seizure-like activity: Code(s): R56.9 - Unspecified convulsions Status: Acute (2) Altered mental status: Code(s): R41.82 - Altered mental status, unspecified Status: Acute (3) Acute respiratory failure: Code(s): J96.00 - Acute respiratory failure, unspecified whether with hypoxia or hypercapnia Status: Acute (4) Chest pain: Code(s): R07.9 - Chest pain, unspecified Status: Acute (5) Lung nodule: Code(s): R91.1 - Solitary pulmonary nodule Status: Acute (6) Hypokalemia: Code(s): E87.6 - Hypokalemia Status: Acute (7) End stage kidney disease: Code(s): N18.6 - End stage renal disease Status: Acute (8) Tobacco dependence: Code(s): F17.200 - Nicotine dependence, unspecified, uncomplicated Status: Acute Plan Seizure-like activity Patient continues with neurologic symptoms now having persistent nonsensical speech. Possible seizures? EEG normal. CT brain normal on 05/04. Will repeat CT brain to exclude recent CVA. No MR brain because he has pacer. Check TSH, B12, RPR Check orthostatic vital signs given his leg weakness when walking. Continue Keppra and Divalproex Atypical CP.? Pt presented with chest pain while in dialysis Troponin mildly elevated on presentation, however likely due to end-stage renal disease. Levels consistent with prior readings earlier this month Discussed with radiology. No obvious central PE by CTA chest on 05/04. Chest/Abd/Pelvis CT negative for dissection EKG reviewed without acute changes. Some mild nonspecific changes from prior EKG which may be due to lead placement. Pain reproducible with palpation of chest wall May be related to anxiety. Similar symptoms at last hospitalization 10 days prior. Acute Resp Failure. Pt presented with respiratory distress with O2 sat in the 80s Placed on BiPAP with overall improvement in respiratory status Likely due to volume overload though chest CT not significant for pulmonary edema/pleural effusion No wheezing on exam to suggest COPD exacerbation.? Continue maintenance inhalers Patient received Bumex in the ED with improvement Sx resolved following fluid volume management with dialysis Maintained on hemodialysis Last dialysis was [facility].? No HD on day of admission Nephrology was consulted for dialysis management Euvolemic. Continue dialysis schedule Blood pressure reviewed and has been stable. Received labetalol on presentation. Home antihypertensives resumed BP remain stable CTA on presentation revealed 4 mm lung nodule of left lower lobe. Not evident on any prior imaging Recommend follow up CT in 12 months Subjective Date/time seen: 05/08/22 10:14 Interval history: 66yo male with ESRD, HTN, and COPD who presents to emergency room with complaints of chest pain. Assuming care. Chart reviewed. Staff in the room stay patient did eat breakfast well this morning without difficulty. Later in the morning, he was found difficult to arouse. When he was more awake, he was verbal with repetitive sounds. Patient is making nonsensical verbal sounds but no words could be made out. He interacts with the provider and does point to the left side of his abdomen when asked if he has pain. Difficulty obtaining any clear history. Patient was able to stand and walk but then his legs began to give out and a chair was brought in for him to sit. He did not have any seizure like activity. Review of Systems Review of Systems: ROS unobtainable: Yes unobtainable due to mental status Exam Narrative: AF 97.1 186/81 68 18 99% ra Gen - NARD lying semi-recumbent in bed Chest - CTA bilaterally, nml RR. HD catheter tunnelled right upper chest CV - RRR S1/S2. Tele showing no significant dysrhythmias Abd -soft. Nontender. Nondistended. Positive bowel sounds. Abd benign but he would occasionally jump fr
[2022-05-08] MEDS: lisinopriL 20 MG TABLET PO (16:47)
[2022-05-08 18:39] LABS: Alveolar/Arterial O2 Gradient 23.3 mmHg; Base Excess ABG 4.6 mEq/l (+/-2.0); Carboxyhemoglobin 0.3 % THb (0-2.0); Fractional Inspired Oxygen 21 %; HCO3 ABG 27.7 mEq/l (22.0-26.0); Oxygen Content ABG 15.5 %vol (16.0-22.0); Oxygen Saturation ABG 97.1 % (95.0-100.0); Oxyhemoglobin 95.4 % THb (90.0-100.0); PCO2 ABG 35.9 mmHg (35.0-45.0); PO2 ABG 83.4 mmHg (80.0-100.0); PO2 FiO2 Ratio Arterial Blood 3.97 %; Reduced Hemoglobin 4.3 %THb (0-5.0); Total Hemoglobin 11.5 g/dL (12.0-18.0)
[2022-05-08 18:41] LABS: Device ROOM AIR; Modified Allen's Test Pass; Site Drawn LEFT RADIAL; pH ABG 7.506 (7.350-7.450)
[2022-05-08] MEDS: FAMOTIDINE 20 MG TABLET PO (22:03)
[2022-05-09] VITALS (27 sets, daily range): BP systolic 70–184; BP diastolic 38–95; PULSE 59–101; RESP 16–24; TEMP 36.3–37; O2SAT 97–100
[2022-05-09 05:19] LABS: Basophils Absolute Auto 0.1 K/mm3 (0.0-0.1); Basophils Percent Auto 1.2 % (0.2-1.2); Eosinophils Absolute Auto 0.2 K/mm3 (0-0.3); Eosinophils Percent Auto 2.5 % (0-4.4); Hematocrit 31.2 % (42.0-52.0); Immature Granulocyte Absolute 0.02 K/mm3 (0.00-0.031); Immature Granulocyte Percent A 0.3 % (0-0.5); Lymphocytes Absolute Auto 2.07 K/mm3 (0.9-3.2); Lymphocytes Percent Auto 34.2 % (18.3-44.2); Mean Corpuscular HGB Conc 32.1 g/dl (32-36); Mean Corpuscular Volume 96.6 fl (80-100); Mean Platelet Volume 10.4 fl (7.4-10.4); Monocytes Absolute Auto 0.5 K/mm3 (0.1-0.6); Monocytes Percent Auto 8.9 % (2.6-8.5); Neutrophils Absolute Auto 3.2 K/mm3 (1.3-6.7); Neutrophils Percent Auto 52.9 % (45.5-73.1); Platelet Count Result 229 k/mm3 (150-375); Red Blood Count 3.23 M/mm3 (4.6-6.20); Red Cell Distribution Width 14.8 % (11.5-14.5); White Blood Count 6.1 K/mm3 (4.5-10.0)
[2022-05-09 05:32] LABS: Albumin Level 3.4 g/dL (3.5-5.1); Anion Gap 10 mmol/L (8-16); Blood Urea Nitrogen 24 mg/dL (9-20); CRP < 0.5 mg/dL (<1.0); Calcium 8.5 mg/dL (8.4-10.2); Carbon Dioxide 29 mmol/L (22-30); Chloride 95 mmol/L (98-107); Estimated CRCL calculation 11 ml/min; Estimated Glomerular Filt Rate 12; Glucose 95 mg/dL (65-110); Phosphorus 3.9 mg/dL (2.5-4.5); Potassium 3.7 mmol/L (3.4-5.0); Sodium 134 mmol/L (137-145)
[2022-05-09 06:11] LABS: Valproic Acid 36.3 ug/mL (50-120)
[2022-05-09 06:32] LABS: Folic Acid 4.3 ng/mL (2.76->20)
[2022-05-09 07:37] LABS: Rapid Plasma Reagin Non-Reactive (NonReactive)
[2022-05-09] MEDS: UMECLIDINIUM BROMIDE 62.5 MCG ELLIPTA 1 PUFF INHALATION (07:52)
[2022-05-09] MEDS: FLUTICASONE/SALMETEROL 230-21 MCG INHALER 1 PUFF 2 PUFF INHALATION ×2 (07:52→20:36)
--- NOTE | 2022-05-09 08:30 | PM.PNNEP ---
Progress Note: A&P Assessment and Plan (1) End stage renal disease: Code(s): N18.6 - End stage renal disease Status: Chronic Assessment and Plan: The patient is due for dialysis today. Volume status looks okay. Electrolytes look okay except mildly low sodium due to ESRD and water drinking. (2) Chest pain: Code(s): R07.9 - Chest pain, unspecified Status: Acute Assessment and Plan: Evaluation per hospitalists. he still has chest wall tenderness. (3) Acute dyspnea: Code(s): R06.00 - Dyspnea, unspecified Status: Acute Assessment and Plan: Breathing is comfortable now. (4) Altered mental status: Code(s): R41.82 - Altered mental status, unspecified Status: Acute Assessment and Plan: Neurology is seeing the patient. This is vision is seizure activity. He is on Keppra and valproic acid. he continues to have babbling speech intermittently. (5) Hypertension: Code(s): I10 - Essential (primary) hypertension Status: Chronic Assessment and Plan: Systolic is variable, ranging 106-160. He is on lisinopril, hydralazine 100 t.i.d., nifedipine 90 daily. will reduce hydralazine and inc lisinopril (6) Hypokalemia: Code(s): E87.6 - Hypokalemia Status: Acute Assessment and Plan: Resolved Subjective Date/time seen: 05/09/22 08:30am Interval history: Patient lying flat in bed. has a tremor. this happens with holding things. going on for years.j no cp or sob. still has babbling speech and word searching intermittently with a few fluent words. Exam Narrative: WDWN in NAD skin no rash head ncat lungs clear bilaterally cor reg no rub abd BS+ nontender and soft. heavy palpation produces no discomfort. ext no edema cyanosis.. Objective Data Vital Signs Vital Signs: Vital Signs - 24 hr 05/08/22 16:00 05/08/22 16:00 05/08/22 18:00 Temperature 36.3 C L Pulse Rate 61 71 83 Respiratory Rate 18 Blood Pressure 124/58 L Pulse Oximetry 97 Oxygen Delivery Oxygen Flow Rate 05/08/22 16:00 05/08/22 19:31 05/08/22 20:00 Temperature 36.8 C Pulse Rate 69 Respiratory Rate 22 H Blood Pressure 144/88 H Pulse Oximetry 95 100 Oxygen Delivery Room Air Room Air Oxygen Flow Rate 05/08/22 20:00 05/08/22 23:15 05/08/22 20:00 Temperature 36.4 C L Pulse Rate 60 60 Respiratory Rate 22 H Blood Pressure 179/81 H Pulse Oximetry 98 Oxygen Delivery Room Air Oxygen Flow Rate 05/08/22 22:00 05/09/22 00:00 05/09/22 00:00 Temperature Pulse Rate 63 60 Respiratory Rate Blood Pressure Pulse Oximetry Oxygen Delivery Room Air Oxygen Flow Rate 05/09/22 02:00 05/09/22 04:00 05/09/22 04:00 Temperature Pulse Rate 60 60 Respiratory Rate Blood Pressure Pulse Oximetry Oxygen Delivery Room Air Oxygen Flow Rate 05/09/22 04:00 05/09/22 06:00 05/09/22 07:53 Temperature 36.5 C Pulse Rate 60 74 Respiratory Rate 20 Blood Pressure 160/79 H Pulse Oximetry 100 99 Oxygen Delivery Nasal Cannula Oxygen Flow Rate 3 05/09/22 08:00 05/09/22 10:20 05/09/22 10:15 Temperature 36.3 C L 36.6 C Pulse Rate 60 60 74 Respiratory Rate 22 H 16 Blood Pressure 168/81 H 171/90 H 184/95 H Pulse Oximetry 100 Oxygen Delivery Oxygen Flow Rate 05/09/22 10:40 05/09/22 11:00 05/09/22 11:20 Temperature Pulse Rate 70 77 89 Respiratory Rate Blood Pressure 132/84 130/77 133/75 Pulse Oximetry Oxygen Delivery Oxygen Flow Rate 05/09/22 10:15 05/09/22 13:20 05/09/22 13:09 Temperature Pulse Rate 72 88 Respiratory Rate Blood Pressure 93/51 L 103/58 L Pulse Oximetry Oxygen Delivery Oxygen Flow Rate 1 05/09/22 11:40 05/09/22 12:00 05/09/22 12:20 Temperature Pulse Rate 74 74 81 Respiratory Rate Blood Pressure 111/68 115/65 110/67 Pulse Ox
[2022-05-09] MEDS: HEPARIN SODIUM 5,000 UNITS/ML VIAL 5000 UNITS SUB-Q ×2 (09:52→21:06)
[2022-05-09] MEDS: DIVALPROEX SODIUM ER 500 MG TAB.24H PO ×2 (09:52→17:17)
[2022-05-09] MEDS: NIFEdipine 30 MG TAB.ER.24 90 MG PO (09:53)
[2022-05-09] MEDS: hydrALAZINE HCL 50 MG TABLET 100 MG PO (09:53)
[2022-05-09] MEDS: SODIUM BICARBONATE TAB 650 MG TABLET PO ×2 (09:54→17:17)
[2022-05-09] MEDS: ISOSORBIDE MONONITRATE 30 MG TAB.ER.24H PO (09:55)
[2022-05-09] MEDS: lisinopriL 20 MG TABLET PO (09:55)
[2022-05-09] MEDS: levETIRAcetam 250 MG TABLET PO ×2 (09:55→21:07)
[2022-05-09] MEDS: ATORVASTATIN 40 MG TABLET PO (09:55)
[2022-05-09] MEDS: ASPIRIN 81 MG ENTERIC TABLET PO (09:55)
--- NOTE | 2022-05-09 10:35 | PCPTNOTE ---
Attempted to see patient for PT at this time, however patient out of room for dialysis.
[2022-05-09] MEDS: EPOETIN ALFA-EPBX 10,000 UNITS/ML VIAL 10000 UNITS IV PUSH (11:52)
[2022-05-09] MEDS: HEPARIN SODIUM 1,000 UNITS/ML VIAL 6000 UNITS (11:53)
--- NOTE | 2022-05-09 15:42 | P.PNIM_ITS ---
Progress Note: A&P Assessment and Plan (1) Seizure-like activity: Code(s): R56.9 - Unspecified convulsions Status: Acute Assessment and Plan: Seizure-like activity * Patient continues with neurologic symptoms with persistent nonsensical speech. Possible CVA? * EEG normal. CT brain normal on 05/04. 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 No MR brain because he has pacer. * TSH, B12 normal. RPR NR. VPA level low. * Continue Keppra and Divalproex * Re-consult Neuro since patient otherwise ready for discharge. * Continue PT/OT/ST (2) Altered mental status: Code(s): R41.82 - Altered mental status, unspecified Status: Acute Assessment and Plan: As above (3) Acute respiratory failure: Code(s): J96.00 - Acute respiratory failure, unspecified whether with hypoxia or hypercapnia Status: Acute Assessment and Plan: Acute Resp Failure. Pt presented with respiratory distress with O2 sat in the 80s * Placed on BiPAP with overall improvement in respiratory status * Likely due to volume overload though chest CT not significant for pulmonary edema/pleural effusion * No wheezing on exam to suggest COPD exacerbation.? Continue maintenance inhalers * Patient received Bumex in the ED with improvement * Sx resolved following fluid volume management with dialysis (4) Chest pain: Code(s): R07.9 - Chest pain, unspecified Status: Acute Assessment and Plan: Atypical CP.? Pt presented with chest pain while in dialysis * Troponin mildly elevated on presentation likely due to ESRD. Levels consistent with prior readings earlier this month * Discussed with radiology. No obvious central PE by CTA chest on 05/04. * Chest/Abd/Pelvis CT negative for dissection * EKG reviewed without acute changes. Some mild nonspecific changes from prior EKG which may be due to lead placement. * Pain reproducible with palpation of chest wall * May be related to anxiety. Similar symptoms at last hospitalization 10 days prior. (5) Lung nodule: Code(s): R91.1 - Solitary pulmonary nodule Status: Acute Assessment and Plan: CTA on presentation revealed 4 mm lung nodule of left lower lobe. * Not evident on any prior imaging * Recommend follow up CT in 12 months (6) End stage kidney disease: Code(s): N18.6 - End stage renal disease Status: Acute Assessment and Plan: Maintained on hemodialysis * Last dialysis was [facility] TECHNOLOG[facility].? No HD on day of admission * Nephrology was consulted for dialysis management * Euvolemic. * Continue dialysis schedule (7) Hypertension: Code(s): I10 - Essential (primary) hypertension Status: Chronic Assessment and Plan: Blood pressure reviewed and has been stable. * Received labetalol on presentation. * Home antihypertensives resumed * BP remaining stable (8) Tobacco dependence: Code(s): F17.200 - Nicotine dependence, unspecified, uncomplicated Status: Acute Assessment and Plan: Educated about the benefit of smoking cessation but unclear if he understands Subjective Date/time seen: 05/09/22 1130 Interval history: 66yo male with ESRD, HTN, and COPD who presents to emergency room with complaints of chest pain. Patient lying in bed undergoing HD at the time of my visit. Patient with garbled speech and thus history unable to be obtained. Review of Systems Review
--- NOTE | 2022-05-09 15:42 | PM.IMPN ---
Progress Note: A&P Assessment and Plan (1) Seizure-like activity: Code(s): R56.9 - Unspecified convulsions Status: Acute Assessment and Plan: Seizure-like activity Patient continues with neurologic symptoms with persistent nonsensical speech. Possible CVA? EEG normal. CT brain normal on 05/04. 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 No MR brain because he has pacer. TSH, B12 normal. RPR NR. VPA level low. Continue Keppra and Divalproex Re-consult Neuro since patient otherwise ready for discharge. Continue PT/OT/ST (2) Altered mental status: Code(s): R41.82 - Altered mental status, unspecified Status: Acute Assessment and Plan: As above (3) Acute respiratory failure: Code(s): J96.00 - Acute respiratory failure, unspecified whether with hypoxia or hypercapnia Status: Acute Assessment and Plan: Acute Resp Failure. Pt presented with respiratory distress with O2 sat in the 80s Placed on BiPAP with overall improvement in respiratory status Likely due to volume overload though chest CT not significant for pulmonary edema/pleural effusion No wheezing on exam to suggest COPD exacerbation.? Continue maintenance inhalers Patient received Bumex in the ED with improvement Sx resolved following fluid volume management with dialysis (4) Chest pain: Code(s): R07.9 - Chest pain, unspecified Status: Acute Assessment and Plan: Atypical CP.? Pt presented with chest pain while in dialysis Troponin mildly elevated on presentation likely due to ESRD. Levels consistent with prior readings earlier this month Discussed with radiology. No obvious central PE by CTA chest on 05/04. Chest/Abd/Pelvis CT negative for dissection EKG reviewed without acute changes. Some mild nonspecific changes from prior EKG which may be due to lead placement. Pain reproducible with palpation of chest wall May be related to anxiety. Similar symptoms at last hospitalization 10 days prior. (5) Lung nodule: Code(s): R91.1 - Solitary pulmonary nodule Status: Acute Assessment and Plan: CTA on presentation revealed 4 mm lung nodule of left lower lobe. Not evident on any prior imaging Recommend follow up CT in 12 months (6) End stage kidney disease: Code(s): N18.6 - End stage renal disease Status: Acute Assessment and Plan: Maintained on hemodialysis Last dialysis was [facility] [employer] [facility].? No HD on day of admission Nephrology was consulted for dialysis management Euvolemic. Continue dialysis schedule (7) Hypertension: Code(s): I10 - Essential (primary) hypertension Status: Chronic Assessment and Plan: Blood pressure reviewed and has been stable. Received labetalol on presentation. Home antihypertensives resumed BP remaining stable (8) Tobacco dependence: Code(s): F17.200 - Nicotine dependence, unspecified, uncomplicated Status: Acute Assessment and Plan: Educated about the benefit of smoking cessation but unclear if he understands Subjective Date/time seen: 05/09/22 1130 Interval history: 66yo male with ESRD, HTN, and COPD who presents to emergency room with complaints of chest pain. Patient lying in bed undergoing HD at the time of my visit. Patient with garbled speech and thus history unable to be obtained. Review of Systems Review of Systems: ROS unobtainable: Yes unobtainable due to mental status Exam Narrative: AF 97.9 136/79 101 24 98% ra Gen - NARD lying semi-recumbent in bed Chest - lungs clear bilaterally. HD catheter tunnelled right upper chest currently accessed CV - RRR S1/S2. Tele showing no significant dysrhythmias Abd -soft. NT/ND. +BS Ext - No pedal edema. Neuro - Alert. Follows commands at times. Garbled, nonsensical speech Skin - Warm and dry Objective Data Vital Signs Vital Signs: Vit
[2022-05-09] MEDS: hydrALAZINE HCL 50 MG TABLET PO (17:17)
[2022-05-09] MEDS: FAMOTIDINE 20 MG TABLET PO (21:06)
[2022-05-10] VITALS: BP 161/83; PULSE 74; RESP 18; TEMP 36.4; O2SAT 100
[2022-05-10 05:56] LABS: Albumin Level 3.7 g/dL (3.5-5.1); Anion Gap 9 mmol/L (8-16); Blood Urea Nitrogen 15 mg/dL (9-20); Calcium 8.8 mg/dL (8.4-10.2); Carbon Dioxide 33 mmol/L (22-30); Chloride 90 mmol/L (98-107); Estimated CRCL calculation 15 ml/min; Estimated Glomerular Filt Rate 18; Glucose 91 mg/dL (65-110); Potassium 3.4 mmol/L (3.4-5.0); Sodium 132 mmol/L (137-145)
[2022-05-10 06:00] VITALS: BP 120/62; PULSE 55; RESP 16; TEMP 36.4; O2SAT 100
[2022-05-10 08:10] VITALS: O2SAT 96
[2022-05-10] MEDS: FLUTICASONE/SALMETEROL 230-21 MCG INHALER 1 PUFF 2 PUFF INHALATION (08:10)
[2022-05-10] MEDS: UMECLIDINIUM BROMIDE 62.5 MCG ELLIPTA 1 PUFF INHALATION (08:10)
--- NOTE | 2022-05-10 08:50 | WPDNEUROPN ---
Progress Note: A&P Assessment and Plan (1) Seizure-like activity: Code(s): R56.9 - Unspecified convulsions Status: Acute Assessment and Plan: Mr. Donahue is a 66 year old male with a history of HTN, COPD, ESRD currently admitted for respiratory and renal failure, who had a transient episode of loss of awareness associated with RUE involuntary movements, that lasted about 20 minutes. EEG obtained earlier during the admission which was normal. Since then he has had several episodes of speech difficulties that he attributes to his seizures. Stroke is on the differential as well but MRI brain cannot be obtained due to patient's pacemaker, although most recent CT head did not reveal any new hypodensity. - Increase Keppra to 500mg BID - Continue VPA 500mg BID - Patient will need follow-up with a Neurologist Subjective Date/time seen: 05/10/22 08:50 Interval history: Sachin Donahue is a 66 year old male with a history of?ESRD on hemodialysis, hypertension, COPD. He presented earlier this week due to chest pain during dialysis. Troponins mildly elevated but EKG was unremarkable. He was also having some respiratory issues, requiring BiPAP. During ongoing evaluation or his renal, cardiac, and respiratory status, on 05/05 he had an episode of altered mental status with associated tremulousness of the right upper extremity that lasted about [address] He [address] a [address] head which was negative. He was previously on VPA 500mg BID and was started on Keppra 250mg BID. Patient's mental status reportedly returned to baseline shortly after the event. He had a routine EEG the following day which was normal. Primary team concerned that his speech has deteriorated and is more garbbled than before. He has not had additional focal symptoms that have been noted by the team. VPA level yesterday was 38. He has no leukocytosis. BUN is normal. Repeat CT head was done yesterday which showed chronic changes. Discussed with patient today -- he describes his seizures as babbling and tremors. He does not see a Neurologist. It seems like compliance with medications at home may be an issue as well. He reports that his seizures have been occurring during this admission when he takes off his oxygen. Review of Systems Constitutional: Constitutional: Denies chills and Denies weakness Eyes: Eyes: Reports no additional eye complaints ENT: Reports system reviewed and no additional complaints, except as documented Cardiovascular: Cardiovascular: Reports no additional cardiovascular complaints Respiratory: Respiratory: Reports as per HPI Gastrointestinal: Gastrointestinal: Reports no additional gastrointestinal complaints Genitourinary: Genitourinary: Reports as per HPI Musculoskeletal: Musculoskeletal: Reports no additional musculoskeletal complaints Integumentary/Breasts: Skin/Breast: Reports system reviewed and no additional complaints, except as docu Neurologic: Reports as per HPI and Reports Abnormal speech present Psychiatric: Psychiatric: Reports confusion Exam Const: General: comfortable and no acute distress HENMT: General nose exam: Normal nares present Mouth: Yes moist mucous membranes Eyes: General: appearance normal, both eyes and all related structures Pupils: Equal, round and reactive pupils present EOM: EOMs intact bilaterally Resp: Effort & Inspection: normal respiratory effort Cardio: Rate: regular rate Rhythm: regular rhythm Skin: General skin exam: normal color Neuro: General: deep tendon reflexes 2+ bilaterally Cranial nerves: Yes Equal, round and reactive pupils present Motor exam (neuro): 5/5 motor strength present throughout, Normal motor muscle tone present throughout and abnormal movements noted Sensory Exam: normal sensation Other: AOx4, Pupils equal and reactive bilaterally, EOMI, face symmetric, facial sensation intact, tongue protrudes midline. Shoulder shrug normal. Strength 5/5 throughout. Sensation intact throu
--- NOTE | 2022-05-10 08:52 | PCSTNOTE ---
Please refer to the Bedside Swallow Evaluation in the EMR. Please note, silent aspiration cannot be ruled out at bedside.
--- NOTE | 2022-05-10 10:28 | PM.PNNEP ---
Progress Note: A&P Assessment and Plan (1) End stage renal disease: Code(s): N18.6 - End stage renal disease Status: Chronic Assessment and Plan: The patient is due for dialysis tomorrow Volume status looks okay. Potassium is good at 3.4. (2) Chest pain: Code(s): R07.9 - Chest pain, unspecified Status: Acute Assessment and Plan: Evaluation per hospitalists. (3) Acute dyspnea: Code(s): R06.00 - Dyspnea, unspecified Status: Acute Assessment and Plan: Breathing is comfortable now. (4) Altered mental status: Code(s): R41.82 - Altered mental status, unspecified Status: Acute Assessment and Plan: Neurology is seeing the patient. This is vision is seizure activity. He is on Keppra and valproic acid. he continues to have babbling speech intermittently. (5) Hypertension: Code(s): I10 - Essential (primary) hypertension Status: Chronic Assessment and Plan: Systolic is 120 to 140 mostly. Occasionally up to 160. It seems to be responding well to the lisinopril. He is on lisinopril, hydralazine 100 t.i.d., nifedipine 90 daily. Will stop the hydralazine. (6) Hypokalemia: Code(s): E87.6 - Hypokalemia Status: Acute Assessment and Plan: Resolved Subjective Date/time seen: 05/10/22 10:28 Interval history: Sachin is feeling about the same. Sitting up at the side of the bed finishing breakfast. He did well in dialysis yesterday. Neurology just saw the patient. Exam Narrative: WDWN in NAD skin no rash or subQ nodules head ncat lungs clear bilaterally cor reg no rub or gallop abd BS+ nontender and soft. heavy palpation produces no discomfort. ext no edema cyanosis.. Objective Data Vital Signs Vital Signs: Vital Signs - 24 hr 05/09/22 10:40 05/09/22 11:00 05/09/22 11:20 Temperature Pulse Rate 70 77 89 Respiratory Rate Blood Pressure 132/84 130/77 133/75 Pulse Oximetry Oxygen Delivery Oxygen Flow Rate Fraction of Inspired Oxygen 05/09/22 13:20 05/09/22 13:09 05/09/22 11:40 Temperature Pulse Rate 72 88 74 Respiratory Rate Blood Pressure 93/51 L 103/58 L 111/68 Pulse Oximetry Oxygen Delivery Oxygen Flow Rate Fraction of Inspired Oxygen 05/09/22 12:00 05/09/22 12:20 05/09/22 12:40 Temperature Pulse Rate 74 81 96 Respiratory Rate Blood Pressure 115/65 110/67 117/65 Pulse Oximetry Oxygen Delivery Oxygen Flow Rate Fraction of Inspired Oxygen 05/09/22 13:00 05/09/22 13:05 05/09/22 13:40 Temperature Pulse Rate 82 97 72 Respiratory Rate Blood Pressure 70/38 L 92/62 L 102/54 L Pulse Oximetry Oxygen Delivery Oxygen Flow Rate Fraction of Inspired Oxygen 05/09/22 13:53 05/09/22 14:00 05/09/22 12:00 Temperature 36.4 C Pulse Rate 77 74 81 Respiratory Rate 18 Blood Pressure 107/63 121/60 Pulse Oximetry Oxygen Delivery Oxygen Flow Rate Fraction of Inspired Oxygen 05/09/22 14:00 05/09/22 15:02 05/09/22 15:27 Temperature 36.6 C Pulse Rate 100 101 H Respiratory Rate 24 H Blood Pressure 136/79 Pulse Oximetry 100 98 Oxygen Delivery Nasal Cannula Oxygen Flow Rate 1 Fraction of Inspired Oxygen 05/09/22 20:00 05/09/22 20:38 05/09/22 20:00 Temperature 36.6 C Pulse Rate 59 L 59 L Respiratory Rate 16 16 Blood Pressure 119/60 Pulse Oximetry 100 97 97 Oxygen Delivery Nasal Cannula Nasal Cannula Oxygen Flow Rate 1 1 Fraction of Inspired Oxygen 92 05/10/22 00:00 05/10/22 06:00 05/10/22 08:10 Temperature 36.4 C 36.4 C L Pulse Rate 74 55 L Respiratory Rate 18 16 Blood Pressure 161/83 H 120/62 Pulse Oximetry 100 100 96 Oxygen Delivery Nasal Cannula Oxygen Flow Rate 1 Fraction of Inspired Oxygen Intake/Output Intake/Output: Intake & Output 05/07/22 05/08/22 05/09/22 05/10/22 23:59 23:59 23:
[2022-05-10] MEDS: HEPARIN SODIUM 5,000 UNITS/ML VIAL 5000 UNITS SUB-Q (10:52)
[2022-05-10] MEDS: SODIUM BICARBONATE TAB 650 MG TABLET PO ×3 (10:53→18:15)
[2022-05-10] MEDS: ATORVASTATIN 40 MG TABLET PO (10:53)
[2022-05-10] MEDS: DIVALPROEX SODIUM ER 500 MG TAB.24H PO ×2 (10:53→18:15)
[2022-05-10] MEDS: NIFEdipine 30 MG TAB.ER.24 90 MG PO (10:54)
[2022-05-10] MEDS: levETIRAcetam 250 MG TABLET PO (10:54)
[2022-05-10] MEDS: lisinopriL 20 MG TABLET 40 MG PO (10:55)
[2022-05-10] MEDS: ISOSORBIDE MONONITRATE 30 MG TAB.ER.24H PO (10:55)
[2022-05-10] MEDS: ASPIRIN 81 MG ENTERIC TABLET PO (10:56)
--- NOTE | 2022-05-10 13:42 | PM.DS ---
DS: Admitting Diagnosis Discharge Date 05/10/22 Admitting Diagnosis Chest pain DS: Discharge Diagnosis Discharge Diagnosis (1) Seizure-like activity: Code(s): R56.9 - Unspecified convulsions Status: Acute (2) Altered mental status: Code(s): R41.82 - Altered mental status, unspecified Status: Acute (3) Acute respiratory failure: Code(s): J96.00 - Acute respiratory failure, unspecified whether with hypoxia or hypercapnia Status: Acute (4) Chest pain: Code(s): R07.9 - Chest pain, unspecified Status: Acute (5) Lung nodule: Code(s): R91.1 - Solitary pulmonary nodule Status: Acute (6) End stage kidney disease: Code(s): N18.6 - End stage renal disease Status: Acute (7) Hypertension: Code(s): I10 - Essential (primary) hypertension Status: Chronic (8) Tobacco dependence: Code(s): F17.200 - Nicotine dependence, unspecified, uncomplicated Status: Acute DS: Summary Hospital Course Reason for hospitalization: 66yo male with ESRD, HTN, and COPD who presents to emergency room with complaints of chest pain. Please see H&P for details Hospital Course: Patient presents with chest pain and was noted to have respiratory distress with SpO2 in the 80s. He was placed on BiPAP with overall improvement in respiratory status. Chest CT did not show any significant pulmonary edema however it was felt that he probably had volume overload. There was no wheezing to suggest COPD exacerbation. He received Bumex in the ED with improvement. His symptoms resolved with fluid management through dialysis. Was also noted to have seizure-like activity. He continued to have neurologic symptoms despite resolution of the seizure-like activity. He continued to have persistent nonsensical speech. Despite this he was still able to walk up and down the halls without difficulty. EEG was normal. CT the brain showed no acute findings. We repeated the CT the brain but again showed no acute findings. TSH, B12 were normal. RPR was nonreactive. We continue the divalproex here. Keppra was added. Neurology was consulted and appreciate their input. Speech therapy evaluated the patient but there was no concerns. Patient had chest pain while in dialysis prior to admission. Troponins were mildly elevated on presentation likely due to the ESRD. Levels were consistent with prior readings earlier this month. CTA of the chest/abdomen/pelvis was negative for dissection. I discussed with Radiology and there was no obvious central PE by CTA of the chest. EKG showed mild nonspecific changes but may be related to lead placement. Chest pain was reproducible with palpation of the chest wall so thus was felt more likely musculoskeletal. CT of the chest did show 4 mm lung nodule in left lower lobe with recommendations of follow-up CT in 12 months. Nephrology followed the patient we continued dialysis per schedule. Patient's blood pressure was elevated at times. Medications were adjusted. Patient was educated about the benefits of smoking cessation. Patient's dysarthric speech resolved. He has been up ambulating the halls without difficulty. He overall did well was felt he could be discharged home on 05/10/22. Status at Discharge Cognitive/behavioral status at discharge: Stable Time Spent with Patient Time attestation: Total time spent providing and/or coordinating discharge services: 35 minutes Time spent: Greater than 30 minutes Exam Narrative: AF 997.5 120/62 55 16 100% ra Gen - NARD lying semi-recumbent in bed Chest - lungs clear bilaterally. HD catheter tunnelled right upper chest with site being clean and dry CV - RRR S1/S2. Tele showing no significant dysrhythmias Abd -soft. NT/ND. +BS Ext - No pedal edema. Neuro - Alert and oriented x4. Speech clear and answers questions approrpiately. Skin - Warm and dry DS: Data Data Completed and Pend
[2022-05-10 14:00] VITALS: BP 161/72; PULSE 60; RESP 18; TEMP 36.5; O2SAT 100
--- NOTE | 2022-05-10 14:46 | PCOTNOTE ---
Patient refused treatment this session due to eating a then I'm leaving, Patient does have discharge orders per RN.
--- NOTE | 2022-05-10 15:38 | PC.NURSE ---
Returned patient's home medications to him while going over discharge paperwork with him.
--- NOTE | 2022-05-10 18:16 | PC.NURSE ---
Contacted patient's son Von Donahue to inform him of patient's discharge and that patient would be taking a cab home.
--- NOTE | 2022-05-10 19:24 | PCCCNOTE ---
Late entry: Spoke with [facility] in IMU around 5:15, they have been waiting for Lyft from pt's insurance for all afternoon and they have not received a call and patient has not been picked up. Called to [facility] placed on long hold unable to speak with anyone regarding transportation. Cab voucher written and provided JIM Coyne and [facility] with [facility] to confirm with son Von to accept patient at home.
== END 2022-05-10 18:34 | disposition home health service (06) | DRG 425 ==
LOC: ANHED 15:27 → ANHIMU 15:35
PROVIDERS: Internal Medicine Nephrology; Physician Assistant; Admitting Provider Hospitalist; Emergency Provider Preventive Medicine Aerospace Medicine; Visit Provider Internal Medicine
DX: E87.79 Other fluid overload (principal); R07.89 Other chest pain; I12.0 Hypertensive chronic kidney disease with stage 5 chronic kidney disease or end stage renal disease; N18.6 End stage renal disease; E87.6 Hypokalemia; J96.00 Acute respiratory failure, unspecified whether with hypoxia or hypercapnia; R56.9 Unspecified convulsions; R47.1 Dysarthria and anarthria; R25.1 Tremor, unspecified; F41.9 Anxiety disorder, unspecified; Z20.822 Contact with and (suspected) exposure to COVID-19; F17.210 Nicotine dependence, cigarettes, uncomplicated; I16.0 Hypertensive urgency; J44.9 Chronic obstructive pulmonary disease, unspecified; R91.1 Solitary pulmonary nodule; Z99.2 Dependence on renal dialysis; Z79.82 Long term (current) use of aspirin; Z86.16 Personal history of COVID-19; Z95.5 Presence of coronary angioplasty implant and graft; Z95.820 Peripheral vascular angioplasty status with implants and grafts; Z86.73 Personal history of transient ischemic attack (TIA), and cerebral infarction without residual deficits; Z95.0 Presence of cardiac pacemaker
CPT/HCPCS: 36415; 36600; 51701; 70450; 71250; 71275; 74150; 74174; 80048; 80053; 80069; 80164; 81001; 82375; 82607; 82746; 82803; 82805; 82948; 83050; 83735; 83880; 84443; 84484; 85025; 86140; 86592; 86706; 87040; 87070; 87205; 87340; 92610; 93005; 93306; 94002; 94003; 94640; 95816; 96365; 96375; 96376; 97162; 97165; 97530; 99285; A9270; C9803; G0257; G0378; G0379; J1644; J1953; J2060; J2270; J7030; Q4081; Q5105; Q9967; U0003; U0005

== ENCOUNTER 2022-07-06 12:22 | Inpatient (IN) | payer OTHER, SELFPAY ==
[2022-07-06] VITALS (12 sets, daily range): BP systolic 129–187; BP diastolic 72–105; PULSE 60–100; RESP 16–26; TEMP 36.2–36.6; O2SAT 96–100; BMI 19.5
--- NOTE | ~2022-07-06 | US_ITS ---
EXAMINATION: US carotid duplex BI DATE: 07/07/2022 08:52 INDICATION: Carotid atherosclerosis. Dizziness TECHNIQUE: Grayscale, color Doppler, and pulsed Doppler images of the cervical carotid arteries were obtained. The degree of vessel stenosis is placed in one of the following categories: normal, <50%, 5 0-69%, >=70% but less than near-occlusion, near-occlusion, or total occlusion. Note that percent sten osis relative to normal distal artery lumen diameter is indirectly measured from velocity measurement s as described by Santana, et al. Radiology 2003; 229:[id number]. COMPARISON: None. FINDINGS: RIGHT: The right common carotid artery (CCA) peak systolic velocity (PSV) is 74 cm/s. The right internal car otid artery (ICA) PSV is 102 cm/s. The right ICA end-diastolic velocity (EDV) is 33 cm/s. The right I CA/CCA PSV ratio is 2.1. Grayscale and color Doppler images yield an estimate of <50% diameter reduct ion from plaque in the ICA. The external carotid artery (ECA) PSV is 96 cm/s. There is antegrade flow in the right vertebral artery. LEFT: The left CCA PSV is 47 cm/s. The left ICA PSV is 124 cm/s. The left ICA EDV is 44 cm/s. The left ICA/ CCA PSV ratio is 3.3. Grayscale and color Doppler images yield an estimate of <50% diameter reduction from plaque in the ICA. The ECA PSV is 103 cm/s. There is antegrade flow in the left vertebral arter y. IMPRESSION: 1. <50% stenosis in the right internal carotid artery. 2. <50% stenosis in the left internal carotid artery. Reviewed, dictated and finalized at location A.
--- NOTE | ~2022-07-06 | XR_ITS ---
EXAMINATION: XR thoracic spine 3V DATE: 07/06/2022 13:33 INDICATION: Fall. TECHNIQUE: 3 views of thoracic spine were obtained. COMPARISON: Chest 2 views 04/24/2022 FINDINGS: Bone alignment is normal. Vertebral body heights are normal. There is mild to moderately de creased disc height at multiple levels. There are endplate osteophytes at most levels. There is a lef t chest wall pacer with leads in the right atrium and right ventricle. A right internal jugular centr al venous catheter is seen with tip in the superior vena cava. IMPRESSION: 1. Moderate thoracic spondylosis. Reviewed, dictated and finalized at location A.
--- NOTE | ~2022-07-06 | CT_ITS ---
EXAMINATION: CT facial bones w con DATE: 07/09/2022 10:40 INDICATION: Facial swelling. TECHNIQUE: Computed tomography (CT) of the facial bones and maxillofacial region was performed with 1 00 mL Omnipaque 350 intravenous contrast. Automated exposure control and iterative reconstruction lg hnique were employed. The dose-length product was 00.00 mGy-cm. COMPARISON: Neck CT 07/07/2022 FINDINGS: The orbits are normal. There are no pathologically enlarged lymph nodes. There is subcutane ous fat stranding in the face and neck, consistent with edema. There is mild mucosal edema in the pha rynx and larynx. There is a small retropharyngeal effusion with interval improvement. There is mild m ucosal thickening in the paranasal sinuses. There are old fracture deformities of the nasal bones and nasal processes of maxilla. There is severe cervical spondylosis. IMPRESSION: 1. Edema of the face and neck. Improved small retropharyngeal effusion. Reviewed, dictated and finalized at location B.
--- NOTE | ~2022-07-06 | CT_ITS ---
EXAMINATION: CT soft tissue neck wo con DATE: 07/07/2022 11:03 INDICATION: Possible angioedema the neck TECHNIQUE: Computed tomography (CT) of the neck was performed without intravenous contrast. Automated exposure control and iterative reconstruction technique were employed. The dose-length product was 5 11.59 mGy-cm. COMPARISON: Cervical spine CT dated 07/06/2022 FINDINGS: Prominent bilateral periorbital soft tissue swelling and preseptal subcutaneous edema. Bilateral orbi ts remain otherwise normal with no post septal inflammatory stranding. Additional less severe subcuta neous edema about the face and neck. Prevertebral soft tissue swelling with new fluid collection trac lakesha 11 cm craniocaudally in the retropharyngeal space and measuring up to 4.2 x 0.9 cm in maximal tr ansaxial dimensions at the level of the epiglottis. This only mildly narrows the pharyngeal airway. E piglottis and aryepiglottic folds appear normal. No evident abnormal parapharyngeal mucosal thickenin g. Thyroid gland is unremarkable. Submandibular and parotid glands are symmetric. There are scatter ed normal-sized lymph nodes in the neck, no no pathologically enlarged lymphadenopathy. No masses id entified. Severe emphysema the bilateral upper lungs. Partially visualized dual-lead cardiac pacemake r with leads extending across the left brachiocephalic vein. There is a tunneled right internal jugul ar central venous catheter which extends into the inferior vena cava and caudal to the inferior caleb n of the [id number]. Mild mucosal thickening in the left maxillary sinus. Remaining paranasal sinu ses, mastoid air cells and middle ear cavities remain clear. Severe cervical spondylosis. IMPRESSION: 1. Mild narrowing of the pharyngeal airway resulting from a new 11 x 4.2 x 0.9 cm nonspecific fluid c ollection in the retropharyngeal space which is of indeterminate etiology. 2. Soft tissue swelling with subcutaneous edema at the head and neck most prominent in the preseptal periorbital soft tissues. 3. Severe emphysema. Reviewed, dictated and finalized at location A. IMPRESSION: 1. Mild narrowing of the pharyngeal airway resulting from a new 11 x 4.2 x 0.9 cm nonspecific fluid collection in the retropharyngeal space which is of indete rminate etiology. 2. Soft tissue swelling with subcutaneous edema at the head and neck most promi nent in the preseptal periorbital soft tissues. 3. Severe emphysema.
--- NOTE | ~2022-07-06 | XR_ITS ---
EXAMINATION: XR lumbar spine 2-3V DATE: 07/06/2022 13:33 INDICATION: Fall. TECHNIQUE: 3 views of lumbar spine on 4 radiographs were obtained. COMPARISON: CT abdomen and pelvis 05/04/2022 FINDINGS: There is 9 degrees levocurvature of thoracolumbar spine. There is 3 mm retrolisthesis of L4 on L5. Vertebral body heights are normal. There is mildly decreased disc height at L1-L2 and severel y decreased disc height from L2-L3 through L5-S1 with endplate remodeling. There is severe facet join t osteoarthritis in lower lumbar spine. There are pacer wires in right atrium and right ventricle. Th ere is a stent in right external iliac artery. IMPRESSION: 1. Severe lumbar spondylosis. Reviewed, dictated and finalized at location A.
--- NOTE | ~2022-07-06 | CT_ITS ---
EXAMINATION: CTA brain carotid DATE: 07/09/2022 09:36 INDICATION: Facial edema. TECHNIQUE: Computed tomographic angiography (CTA) of the head was performed without and with 100 mL O mnipaque-350 intravenous contrast. CTA of the neck was performed with intravenous contrast. Automated exposure control and iterative reconstruction technique were employed. The dose-length product was 1 732.95 mGy-cm. Maximum intensity projection and volume rendered 3D-reconstructions were created by judah bailey technologist on a separate workstation. COMPARISON: Head CT 07/06/2022 FINDINGS: HEAD CTA: There is a small old infarct in right cerebellum. There are old infarcts in the skyler and le ft thalamus. There are scattered areas of low attenuation in the cerebral white matter, which is with in normal limits for the patient's age. There is no intracranial hemorrhage, acute infarction, or abn ormal intracranial mass lesion. The ventricles are normal in size. There is mild mucosal thickening i n the paranasal sinuses. The orbits are normal. The mastoid air cells are normal. Left vertebral vincent ry is dominant. There is no significant stenosis of basilar artery or the posterior cerebral arteries . There is no significant stenosis of the intracranial internal carotid arteries or anterior or middl e cerebral arteries. Anterior communicating artery is normal. The posterior communicating arteries ar e normal. There is no aneurysm. NECK CTA: There is severe emphysema. There are no pathologically enlarged lymph nodes. Partially visu alized is a right internal jugular central venous catheter. There is severe stenosis of proximal righ t vertebral artery. Left vertebral artery is dominant. There is plaque in the proximal internal carot id arteries. There is 0% stenosis of the proximal right internal carotid artery relative to normal di stal artery lumen diameter (NASCET criteria). There is 0% stenosis of the proximal left internal sadler tid artery relative to normal distal artery lumen diameter. There is a left chest pacer. Superior mejia a cava is small superior to the azygous vein. The veins are not well evaluated given the early phase of contrast opacification. There is severe cervical spondylosis. IMPRESSION: 1. 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 2. No aneurysm or significant intracranial arterial stenosis. 3. 0% stenosis of the proximal internal carotid arteries relative to normal distal artery lumen diame ters (NASCET criteria). 4. Severe stenosis of proximal right vertebral artery. 5. Severe emphysema. 6. Superior vena cava is small superior to the azygous vein. Reviewed, dictated and finalized at location B. IMPRESSION: 1. 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 2. No aneurysm or significant intracranial arterial stenosis. 3. 0% stenosis of the proximal internal carotid arteries relative to normal dis vance artery lumen diameters (NASCET criteria). 4. Severe stenosis of proximal right vertebral artery. 5. Severe emphysema. 6. Superior vena cava is small superior to the azygous vein.
--- NOTE | ~2022-07-06 | CT_ITS ---
EXAMINATION: CT cervical spine wo con DATE: 07/06/2022 14:03 INDICATION: Fall. TECHNIQUE: Computed tomography (CT) of the cervical spine was performed without intravenous contrast. Automated exposure control and iterative reconstruction technique were employed. The dose-length pro duct was 460.34 mGy-cm. COMPARISON: None FINDINGS: The lung apices demonstrate emphysema. There is 6 degrees dextrocurvature of cervical spine . There is 2 mm retrolisthesis of C5 on C6. Vertebral body heights are normal. There is mildly decrea sed disc height from C2-C3 through C4-C5 and severely decreased disc height at C5-C6 and C6-C7. The f ollowing disc levels are specifically discussed: C2-C3: There is mild lateral uncovertebral joint osteoarthritis. There is mild right and severe left facet joint osteoarthritis. There is mild left neural foraminal stenosis. There is no central canal s tenosis. C3-C4: There is severe bilateral uncovertebral joint osteoarthritis. There is mild right and severe l eft facet joint osteoarthritis. There is mild bilateral neural foraminal stenosis. There is mild cent ral canal stenosis. C4-C5: There is severe bilateral uncovertebral joint osteoarthritis. There is severe bilateral facet joint osteoarthritis. There is mild bilateral neural foraminal stenosis. There is mild central canal stenosis. C5-C6: There is severe bilateral uncovertebral joint osteoarthritis. There is moderate bilateral face t joint osteoarthritis. There is moderate bilateral neural foraminal stenosis. There is moderate cent ral canal stenosis. C6-C7: There is severe bilateral uncovertebral joint osteoarthritis. There is severe bilateral facet joint osteoarthritis. There is mild bilateral neural foraminal stenosis. There is mild central canal stenosis. C7-T1: There is no uncovertebral joint osteoarthritis. There is severe bilateral facet joint osteoart hritis. There is mild right neural foraminal stenosis. There is no central canal stenosis. IMPRESSION: 1. No fracture. 2. Severe cervical spondylosis. Reviewed, dictated and finalized at location A.
--- NOTE | ~2022-07-06 | CT_ITS ---
EXAMINATION: CT brain wo con DATE: 07/06/2022 14:02 INDICATION: Altered mental status. TECHNIQUE: Computed tomography (CT) of the head was performed without intravenous contrast. The mA wa s adjusted according to patient size. Iterative reconstruction technique was employed. The dose-lengt h product was 756.67 mGy-cm. COMPARISON: Head CT 05/08/2022, 05/04/2022 FINDINGS: There is a small old infarct in right cerebellum. There is an old lacunar infarct in the po ns. There are old infarcts in the left thalamus. There is no intracranial hemorrhage, acute infarctio n, or abnormal intracranial mass lesion. The ventricles are normal in size. The orbits are normal. Th ere are old fracture deformities of the nasal bones. There is bilateral periorbital soft tissue swell ing. The mastoid air cells are normal. IMPRESSION: 1. 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 Reviewed, dictated and finalized at location A.
--- NOTE | ~2022-07-06 | US_ITS ---
EXAMINATION: US venous doppler UE DATE: 07/10/2022 12:59 INDICATION: Left upper extremity edema TECHNIQUE: Grayscale ultrasound images without and with compression and Doppler ultrasound images of the left upper extremity veins were obtained. COMPARISON: None. FINDINGS: The left internal jugular vein, subclavian vein, axillary vein, brachial veins, basilic vein, cephali c vein, radial vein, and ulnar vein are patent. IMPRESSION: 1. No evidence of deep venous thrombosis. Reviewed, dictated and finalized at location A.
--- NOTE | ~2022-07-06 | XR_ITS ---
EXAMINATION: XR chest 1V portable DATE: 07/07/2022 01:52 INDICATION: Trouble breathing. Allergic reaction. TECHNIQUE: frontal view of the chest was obtained. COMPARISON: Chest radiograph dated 07/06/2022 FINDINGS: Unchanged minimal linear discoid atelectasis/scarring at the lateral right mid and left lower lung zo evie. No new airspace opacities, pulmonary edema, pleural effusion or pneumothorax. Heart size is norm al. Tortuous thoracic aorta. Dual lead pacemaker seen with leads projecting over the expected locatio ns of the right atrium and right ventricle. Likely tunneled large-bore dual-lumen right internal jug ular central venous catheter with distal tip at the midsuperior vena cava. IMPRESSION: 1. No acute cardiopulmonary disease. Reviewed, dictated and finalized at location A.
--- NOTE | ~2022-07-06 | CT_ITS ---
EXAMINATION: CT brain wo con DATE: 07/10/2022 10:53 INDICATION: Stroke presenting with slurred speech. TECHNIQUE: Computed tomography (CT) of the head was performed without intravenous contrast. Sagittal and coronal reconstructions were performed. The mA was adjusted according to patient size. Iterative reconstruction technique was employed. The dose-length product was 605.33 mGy-cm. COMPARISON: head CT dated 07/09/22 FINDINGS: Again seen are small old infarcts including at the skyler, right cerebellar hemisphere and 2 in the lef t thalamus. No acute intracranial hemorrhage, acute infarction or abnormal extra axial fluid collecti on. There is mild scattered white matter hypoattenuation consistent with chronic small vessel ischemi c disease. Ventricles are normal and symmetric. No mass/mass effect. No mucosal thickening the paran mirna sinuses. The orbits, paranasal sinuses and mastoid air cells are normal. IMPRESSION: 1. No acute intracranial process. 2. Unchanged small old lacunar infarcts in the left thalamus, skyler and right cerebellar hemisphere. Reviewed, dictated and finalized at location A. IMPRESSION: 1. No acute intracranial process. 2. Unchanged small old lacunar infarcts in the left thalamus, skyler and right ce rebellar hemisphere.
--- NOTE | ~2022-07-06 | XR_ITS ---
EXAMINATION: XR chest 1V portable Exam Date/Time: 07/06/2022 15:25 CDT HISTORY: Fall TODAY, AMS, HX COPD, HX HTN Comparison: 04/24/2022, CT 05/04/2022. RESULT: Lines, tubes, and devices: Left chest pacer with intact leads. Right IJ dual-lumen central line term inating in the distal SVC. Lungs and pleura: Hyperinflation. Reticulonodular opacities, likely chronic bronchiolitis. Cardiomediastinal silhouette: Stable. Other: No acute osseous or upper abdominal finding. IMPRESSION: No acute cardiopulmonary process. Reviewed, dictated and finalized at location K.
--- NOTE | ~2022-07-06 | CT_ITS ---
EXAMINATION: CTA neck DATE: 07/12/2022 09:10 INDICATION: Facial swelling. TECHNIQUE: Computed tomographic angiography (CTA) of the neck was performed with 100 mL Omnipaque-350 intravenous contrast. Automated exposure control and iterative reconstruction technique were employe d. The dose-length product was 700.19 mGy-cm. Maximum intensity projection 3D-reconstructions were cr eated by the technologist on a separate workstation. COMPARISON: Neck CTA 07/09/2022 FINDINGS: There are no pathologically enlarged lymph nodes. The orbits are normal. There is mild muco lito thickening in the paranasal sinuses. There is a right internal jugular central venous catheter wi th tip not included. Right internal jugular vein is small. Right brachiocephalic vein and supra-azygo us superior vena cava are relatively small. There is a left chest pacer. Left vertebral artery is dom inant. There is severe stenosis of proximal right vertebral artery. There is plaque in the proximal i nternal carotid arteries. There is 0% stenosis of the proximal right internal carotid artery relative to normal distal artery lumen diameter (NASCET criteria). There is 0% stenosis of the proximal left internal carotid artery relative to normal distal artery lumen diameter. IMPRESSION: 1. 0% stenosis of the proximal internal carotid arteries relative to normal distal artery lumen diame ters (NASCET criteria). 2. Severe stenosis of proximal right vertebral artery. 3. No acute vein thrombosis. 4. Small right internal jugular vein. Right brachiocephalic vein and supra-azygous superior vena cava are smaller than is typical, but this finding may not be clinically significant. Reviewed, dictated and finalized at location A. IMPRESSION: 1. 0% stenosis of the proximal internal carotid arteries relative to normal dis vance artery lumen diameters (NASCET criteria). 2. Severe stenosis of proximal right vertebral artery. 3. No acute vein thrombosis. 4. Small right internal jugular vein. Right brachiocephalic vein and supra-azyg ous superior vena cava are smaller than is typical, but this finding may not be clinically significant.
--- NOTE | 2022-07-06 13:06 | ECG_ITS ---
Measurements Intervals [place] Rate: 85 P: 75 MO: 136 QRS: 64 QRSD: 96 T: 79 QT: 391 QTc: 468 Interpretive Statements SINUS RHYTHM VOLTAGE CRITERIA FOR LVH NONSPECIFIC ST & T-WAVE ABNORMALITY BORDERLINE QT PROLONGATION BORDERLINE ECG COMPARED TO ECG 05/05/2022 07:52:50 LEFT VENTRICULAR HYPERTROPHY NOW PRESENT T-WAVE ABNORMALITY NOW PRESENT Electronically Signed On 07-06-2022 15:32:07 CDT by Jewel Payton M.D.
--- NOTE | 2022-07-06 14:12 | ED.GENADULT ---
HPI - General Adult General Chief complaint: Altered Mental Status Stated complaint: AMS - DIALYSIS - [facility] OUT OF CHAIR Time Seen by Provider: 07/06/22 12:32 Source: patient, EMS and RN notes reviewed Mode of arrival: EMS Limitations: no limitations History of Present Illness HPI narrative: 66 years old white male was at the last hour of dialysis, slid off of the recliner and fell on the floor on his bottom, about 3 to 4 feet above the ground, possible hitting the back of his head on the ground, patient normally have garbled speech which is not different after the fall. Currently patient denying any symptoms. Related Data Home Medications Medication Instructions Recorded Confirmed aspirin 81 mg tablet,delayed 81 mg PO DAILY 03/19/22 05/04/22 release atorvastatin 40 mg tablet 40 mg PO DAILY 03/19/22 05/04/22 divalproex 500 mg tablet,extended 500 mg PO BID 03/19/22 05/04/22 release 24 hr famotidine 20 mg tablet 20 mg PO HS 03/19/22 05/04/22 nifedipine 90 mg tablet,extended 90 mg PO DAILY 03/19/22 05/04/22 release oxybutynin chloride 10 mg 10 mg PO DAILY 03/19/22 05/04/22 tablet,extended release 24 hr sodium bicarbonate 650 mg tablet 650 mg PO TID 03/19/22 05/04/22 umeclidinium 62.5 mcg/actuation 1 inh inhalation DAILY 03/24/22 05/04/22 blister powder for inhalation (Incruse Ellipta) fluticasone 500 mcg-salmeterol 50 1 inh inhalation BID 04/24/22 05/04/22 mcg/dose blistr powdr for inhalation (Advair Diskus) isosorbide mononitrate 30 mg 30 mg PO DAILY 05/04/22 05/04/22 tablet,extended release 24 hr Allergies Allergy/AdvReac Type Severity Reaction Status Date / Time No Known Allergies Allergy Verified 03/27/22 20:03 Review of Systems Review of Systems: All systems reviewed & are unremarkable except as noted in HPI and below PMFSH Past Medical History Medical History COPD exacerbation COVID-19 End stage renal disease Hypertension Surgical History Surgical History History of percutaneous coronary intervention Iliac stent. Cardiac stents. Family History Family History Father Cancer of lung Mother Heart failure Social History Social History Social History: POA: Von, son Full code Smoking packs per day: 2 Smoking cigarettes per day: 40.0 Years smoked: 40 Smoking pack-years: 80.00 Smoking status: Current every day smoker Tobacco type: cigarettes Alcohol intake: never Substance use: never Spiritual care concerns: No Exam Narrative: General appearance: Well-developed, well-nourished Skin: Normal color Head: Normocephalic, nontraumatic Eyes: Clear conjunctiva ENT: Oropharynx normal, ears normal, nose normal Neck: Supple, nontender Chest and respiratory: Airway patent, no respiratory distress, no accessory muscle use Heart: Regular rate/rhythm Abdomen: Soft, nontender, no organomegaly, quiet bowel sounds Vascular: Normal peripheral pulses, normal capillary refill. Musculoskeletal: Normal range of motion, nontender back Neurologic: Alert and oriented ?3, SENSOR SPECIALIST is normal as tested, no gross motor deficit Course Course Emergency Course: Patient's son and D-Anahi reports that patient have intermittent garbling speech and difficulty to talk. Patient is telling me that he gets that because he have tremors which make him sometimes unable to speak clearly. I was able to assist patient to get out of bed and walk in the emergency room, patient is telling me that he feeling lighthea
--- NOTE | 2022-07-06 15:04 | PC.NURSE ---
when discharging pt. pt. was tying his shoes and slumped over and caught him self with his hands. pt stating he feels dizzy and that his head hurts. pt placed back in stretcher on bed alarm. BROOKLYN Mistry made aware.
--- NOTE | 2022-07-06 15:33 | PC.NURSE ---
pt unable to provide urine sample at this time. pt refusing straight cath.
[2022-07-06 15:35] LABS: Basophils Absolute Auto 0.1 K/mm3 (0.0-0.1); Eosinophils Absolute Auto 0.1 K/mm3 (0-0.3); Eosinophils Percent Auto 1.8 % (0-4.4); Hematocrit 36.3 % (42.0-52.0); Hemoglobin 12.2 g/dL (14.0-18.0); Immature Granulocyte Absolute 0.02 K/mm3 (0.00-0.031); Immature Granulocyte Percent A 0.3 % (0-0.5); Lymphocytes Absolute Auto 1.55 K/mm3 (0.9-3.2); Lymphocytes Percent Auto 21.6 % (18.3-44.2); Mean Corpuscular HGB Conc 33.6 g/dl (32-36); Mean Corpuscular Hemoglobin 33.1 pg (26-34); Mean Corpuscular Volume 98.4 fl (80-100); Mean Platelet Volume 9.7 fl (7.4-10.4); Monocytes Absolute Auto 0.5 K/mm3 (0.1-0.6); Monocytes Percent Auto 6.7 % (2.6-8.5); Neutrophils Absolute Auto 4.9 K/mm3 (1.3-6.7); Neutrophils Percent Auto 68.6 % (45.5-73.1); Platelet Count Result 252 k/mm3 (150-375); Red Blood Count 3.69 M/mm3 (4.6-6.20); Red Cell Distribution Width 12.6 % (11.5-14.5); White Blood Count 7.2 K/mm3 (4.5-10.0)
[2022-07-06 15:48] LABS: Alanine Aminotransferase 17 U/L (6-50); Albumin Level 4.3 g/dL (3.5-5.1); Alkaline Phosphatase 90 U/L (38-126); Anion Gap 12 mmol/L (8-16); Aspartate Amino Transferase 24 U/L (17-59); Bilirubin,Total 0.4 mg/dL (0.2-1.3); Blood Urea Nitrogen 21 mg/dL (9-20); Carbon Dioxide 30 mmol/L (22-30); Chloride 98 mmol/L (98-107); Estimated CRCL calculation 13 ml/min; Estimated Glomerular Filt Rate 15; Glucose 87 mg/dL (65-110); Potassium 3.5 mmol/L (3.4-5.0); Sodium 140 mmol/L (137-145)
[2022-07-06 15:49] LABS: Partial Thromboplastin Time 26.8 SECONDS (22.3-36.8)
[2022-07-06 15:59] LABS: Troponin I 0.028 ng/mL (0.000-0.034)
[2022-07-06 16:00] LABS: INR 1.1; Prothrombin Time 13.7 Seconds (11.1-14.7)
--- NOTE | 2022-07-06 16:15 | PC.NURSE ---
ordered pt dinner tray.
[2022-07-06 17:00] LABS: Add Urine Microscopic? YES; Appearance Urine Clear (Clear); Bilirubin Urine Negative (Negative); Blood Urine Negative (Negative); Color Urine Yellow (Yellow); Glucose Urine UA Negative (Negative); Ketones Urine Negative (Negative); Leukocyte Esterase Ur Negative LEU/UL (Negative); Mucus Urine Rare /lpf; Nitrate Urine Negative (Negative); Protein Urine 2+ mg/dL (Negative); RBC Urine 0-2 /hpf (0-2); Specific Grav Ur 1.013 (1.001-1.035); Squamous Epithelial Cell Urine Rare /hpf (Few); Urobilinogen Urine Negative mg/dL (<2.0); WBC Urine 0-3 /hpf
--- NOTE | 2022-07-06 17:45 | PM.IMHP ---
H&P: HPI History of Present Illness Date/Time: 07/06/22 17:35 Chief Complaint: Dizziness, fall at dialysis. Narrative: This is a 66-year-old male smoker with end stage renal disease on hemodialysis, hypertension, stroke, and COPD who presented to the ED via EMS from dialysis for evaluation of dizziness after a fall. He slide out of the recliner at dialysis while trying to adjust himself as his neck and back were sore. He landed on his buttocks and he reportedly hit the back of his head on the floor and not long after staff thought that his speech was garbled and he seemed a bit confused and he was sent to the ER for evaluation. In the emergency department he appeared to be at his baseline and workup to include labs and imaging were reassuring and stable when compared to baseline. He was to be discharged home however when he bent over to tie his shoes, he started to feel lightheaded and he fell forward out of the wheelchair o to the ground. An radio technician was nearby and reports that the patient landed on his hands and knees. He denied sustaining injuries and there was no loss of consciousness. He was than helped up and attempts to ambulate the patient were not very successful as he complained of lightheadedness and he is being admitted in this setting for further workup. With further questioning he admits that he has felt dizzy and lightheaded the last several days and he feels like he may fall or pass out when standing. At the time my evaluation he complains of a generalized headache which has been going on for couple of days, mild sinus congestion, and cough which is occasionally productive of yellow sputum though that is not unusual for him due to a chronic smoker's cough. He denies vertigo, focal weakness, paresthesias, dysphagia, dysarthria, fever, chills, sweats, sore throat, sick contacts, chest pain, palpitations, shortness of breath, nausea, vomiting, diarrhea, and dysuria (he does still urinate in small quantities). Review of Systems Review of Systems: Twelve systems were reviewed and are negative except for as per HPI. COUNTS INCLUDE 234 BEDS AT THE [facility] Past Medical History Medical History (Updated 07/06/22 @ 21:05 by Mily Rhodes PA-C) Cerebrovascular accident Chronic obstructive pulmonary disease Coronary artery disease COVID-19 (02/2022) End-stage renal disease on hemodialysis [place], , Friday. Hypertension Peripheral vascular disease Seizure-like activity Normal EEG in April 2022 though patient is on levetiracetam. Tobacco abuse Surgical History Surgical History (Updated 07/06/22 @ 20:53 by Mily Rhodes PA-C) History of percutaneous coronary intervention Iliac stent. Cardiac stents. History of permanent cardiac pacemaker placement Family History Family History Father Cancer of lung Mother Heart failure Social History Social History (Updated 07/06/22 @ 20:54 by Mily Rhodes PA-C) Social History: Healthcare power of insurance attorney: Von Donahue, son. Code status: Full code. Smoking packs per day: 2 Smoking cigarettes per day: 40.0 Years smoked: 40 Smoking pack-years: 80.00 Smoking status: Current every day smoker Tobacco type: cigarettes Alcohol intake: never Substance use: never Additional living arrangements comments: The patient lives in [place]. His son Von lives at home with him. Spiritual care concerns: No Meds Home Medications and Allergies Home Medications Medication Instructions Recorded Confirmed Type aspirin 81 mg tablet,delayed 81 mg PO DAILY 03/19/22 07/06/22 History release atorvastatin 40 mg tablet 40 mg PO DAILY 03/19/22 07/06/22 History divalproex 500 mg tablet,extended 500 mg PO BID 03/19/22 07/06/22 History release 24 hr famotidine 20 mg tablet 20 mg PO HS 03/19/22 07/06/22 History nifedipine 90 mg tablet,extended 90 mg PO DAILY 03/19/22 07/06/22 History release oxybutynin chlori
[2022-07-06] MEDS: ACETAMINOPHEN 325 MG TABLET 650 MG PO ×2 (18:17→22:03)
--- NOTE | 2022-07-06 18:38 | ADMGEN ---
This patient, Sachin Donahue, was admitted to 3 [facility] Surg Room 322-01 at 1835. Patient/family oriented to hospital policies and general routines including ID bracelet, bed and alarms, visiting hours, pain management, procedures, bathroom and other care routines, personal items, smoking policy, room service/diet, and visiting hours. Information on how to activate the Rapid Response Team has been discussed. Patient/Family are encouraged to report perceived risks to care and to ask questions if they do not understand what they are told or what they should do.
[2022-07-06] MEDS: DIVALPROEX SODIUM ER 500 MG TAB.24H PO (22:05)
[2022-07-06] MEDS: FAMOTIDINE 20 MG TABLET PO (22:05)
[2022-07-06] MEDS: hydrALAZINE HCL 20 MG/ML VIAL 10 MG IV PUSH (22:06)
[2022-07-06] MEDS: levETIRAcetam 250 MG TABLET PO (22:06)
[2022-07-07] VITALS (21 sets, daily range): BP systolic 160–207; BP diastolic 80–112; PULSE 60–92; RESP 14–98; TEMP 36.2–36.7; O2SAT 20–98
[2022-07-07] MEDS: methylPREDNISolone SOD SUCC 125 MG VIAL IV PUSH (01:11)
[2022-07-07] MEDS: FAMOTIDINE 20 MG/2 ML VIAL IV PUSH ×3 (01:12→22:35)
[2022-07-07] MEDS: diphenhydrAMINE HCl INJ 50 MG/ML VIAL IV PUSH (01:12)
[2022-07-07] MEDS: EPINEPHrine HCL INJ 1 MG/ML AMPUL 0.3 MG IM (01:50)
--- NOTE | 2022-07-07 02:37 | PC.NURSE ---
Transfered to ICU #6 per bed after giving report to JIM Polo. 2 attempts made to contact son Von Donahue,messages left at [phone] and [phone].
--- NOTE | 2022-07-07 03:13 | PC.NURSE ---
Received patient from [facility] at 0239 for laryngeal edema, questionable drug reaction. Patient is alert to person and place. Speech is garbled and difficult to understand. Moves all extremities well, pupils are pinpoint and sluggish. See worklist for further assessment.
--- NOTE | 2022-07-07 04:04 | P.PNCROSS_ITS ---
Event Note Event Note Event Note: 07/07/2022 at approximately 01:00 Nursing staff called to notify me the patient was complaining of face swelling, tongue swelling and feeling as if his throat was tight and swollen. The only new medication the patient had received since admission was hydralazine. He is also on lisinopril at home. Given the symptoms any air to on the side of caution and give patient a dose of IV Benadryl, Pepcid and Solu-Medrol. He had presented to the hospital from hemodialysis were he only received 1 hour of hemodialysis and he had missed 1 other hemodialysis session for this week. The patient denied any shortness of breath. He was noted to have marked JVD on exam. I saw the patient just after medications were administered. The patient did have bags under his eyes which are chronic in nature but nursing staff noted that his mid face was more swollen than when he had been admitted. He his cheeks were also evidently demonstrating increased erythema and had a slightly violaceous erythema to bilateral cheeks, posterior oropharynx appeared to be edematous in the tongue may have been slightly edematous but I do not know the patient's baseline. It seems like the patient was also complaining of external neck swelling but I did not appreciate any significant enlargement of the neck circumference. Given the fact that the patient missed dialysis and has JVD as certainly concerning 80 and is patient's symptoms could be in part due to his overall fluid status being fluid overloaded. But given the appearance of the posterior oropharynx I felt it was safer to transfer the patient to the ICU for monitoring for angioedema. I also give the patient a dose of IM epinephrine. I went and re-evaluated the patient around 06:00. The patient's edema in his face and lips had improved, however the patient had obvious fluid-filled bags under his eyes that EMS had stated was chronic. The patient evidently feels that these areas of swelling or worse than usual. Also the patient was noted to have a markedly edematous uvula although is soft palate looks slightly less edematous than previous his uvula was almost as large as my ring finger in diameter and almost appeared fluid-filled. The patient although is still having some sensation of swelling in his throat is requesting coffee. Have tried to explain to him that that would not be safe at this moment. Patient has been continued on IV steroids, Pepcid and Benadryl. The restoration silversmith has been consulted. 40 minute spent in critical care activities. Due to a high probability of clinically significant, life threatening deterioration, the patient required my highest level of preparedness to intervene emergently and I personally spent this critical care time directly and personally managing the patient. This critical care time included obtaining a history; examining the patient; pulse oximetry; ordering and review of studies; arranging urgent treatment with development of a management plan; evaluation of patient's response to treatment; frequent reassessment; and discussions with other providers. It was exclusive of separately billable procedures and treating other patients and teaching time. Please see Assessment and Plan section and the rest of the note for further information on patient assessment and treatment.
[2022-07-07] MEDS: METOPROLOL TARTRATE INJ 5 MG/5 ML VIAL IV PUSH (06:48)
[2022-07-07] MEDS: methylPREDNISolone SOD SUCC 125 MG VIAL 60 MG IV PUSH ×3 (06:48→18:13)
[2022-07-07] MEDS: diphenhydrAMINE HCl INJ 50 MG/ML VIAL 25 MG IV PUSH ×3 (08:50→22:34)
--- NOTE | 2022-07-07 09:08 | PM.IMPN ---
Progress Note: A&P Assessment and Plan (1) Angioedema: Code(s): T78.3XXA - Angioneurotic edema, initial encounter Status: Acute Assessment and Plan: Ko valentine MD called for face swelling, tongue swelling and feeling as if his throat was tight and swollen.??Patient has known dysarthria. He has a swallow study in April not showing any concerns. The only new medication the patient he had received since admission was hydralazine but he is on lisinopril at home. Patient was moved to the ICU and started on IV Benadryl, Pepcid and Solu-Medrol. He still has persistent feeling of throat swelling but remains on room air and able to handle his secretions. No obvious facial edema now. Although he had 1hour of treatment and also skipped another HD treatment earlier, his CXR is clear. ST to evaluate swallowing. Shrub Planter consulted. (2) Dizziness: Code(s): R42 - Dizziness and giddiness Status: Acute Assessment and Plan: Patient reports feeling lightheaded and dizzy for the last several days. Orthostatic vital signs were normal. Brain CT showing no acute findings. Carotid US pending. No brain MRI since he has a PM. Telemetry noted and no cardiac dysrhythmia noted. Etiology is not entirely clear; consider occult CVA or related to swings in his BP. Continue fall precautions. PT/OT ordered. VPA level pending (3) Fall: Code(s): W19.XXXA - Unspecified fall, initial encounter Status: Acute Assessment and Plan: While in HD, patient slid off the recliner and fell on the floor on his buttock possibly hitting the back of his head on the floor. Not long after, the staff thought his speech was garbled and he seemed a bit confused. In the ED, he bent over to tie his shoes and became LH and fell forward out of his wheelchair to the ground (landing on his hands and knees). No LOC. Per ED note, the patient was able to be up walking with staff but felt LH and a feeling that he was going to fall. He was not orthostatic. Speech ordered. Continue PT/OT. Consider CTA head/neck but CTA performed on 04/04/22 showing old lacunar infarct left thalamus, 0% stenosis bilateral ICA, severe stenosis proximal right vertebral artery. Could be having posterior circulation issues but seems less likely due to good collateral flow. (4) End-stage renal disease on hemodialysis: Code(s): N18.6 - End stage renal disease; Z99.2 - Dependence on renal dialysis Status: Acute Assessment and Plan: Patient has HD //Fri. He had HD yesterday. Nephrology consult. Resume HD per Nephrology schedule. (5) Chronic obstructive pulmonary disease: Code(s): J44.9 - Chronic obstructive pulmonary disease, unspecified Status: Acute Assessment and Plan: No acute issues. No wheezing. Continue maintenance inhalers. (6) Hypertension: Code(s): I10 - Essential (primary) hypertension Status: Chronic Assessment and Plan: Blood pressures are elevated at times. His home antihypertensives have been resumed. Hydralazine p.r.n. has been added. Continue to monitor closely and make adjustments accordingly. (7) Tobacco abuse: Code(s): Z72.0 - Tobacco use Status: Acute Assessment and Plan: The benefits of smoking cessation was discussed though he appeared unmotivated. He declined the need for nicotine patch. Subjective Date/time seen: 07/07/22 09:09 Interval history: 66yo male with ESRD, hx of CVA, HTN and COPD here for dizziness and fall during HD. Patient complains that his throat swelling is worsening. He remains on room air. No odynophagia or dysphagia. No issues with swallowing saliva. Has 'a little bit' of chest pain described as substernal and sharp but this is frequent and chronic without change. His physicians are aware of this. He is not sure if he has had a recent stress. He completed about 1hr of HD yesterday prior to the fall. Exam Narrative: AF
[2022-07-07] MEDS: LABETALOL HCL INJ 100 MG/20 ML VIAL 20 MG IV PUSH ×4 (09:29→22:38)
--- NOTE | 2022-07-07 11:59 | WPDCNINT ---
Assessment and Plan Assessment and plan (1) Angioedema: Code(s): T78.3XXA - Angioneurotic edema, initial encounter Status: Acute Assessment and Plan: Overnight patient had swelling of his face, tongue and throat. Patient was given Solu-Medrol, Pepcid and Benadryl -this morning states he feels much better, denies any drooling or difficulty swallowing. Feels at his tongue and throat swelling has decreased -continue Solu-Medrol, Pepcid and Benadryl -07/07/2022 CT scan of the neck and soft: Showed mild narrowing of the pharyngeal airway, nonspecific fluid collection the retropharyngeal space, indeterminate etiology soft tissue swelling with subcutaneous edema at the head and neck most prominent the preseptal and periorbital soft tissues, severe emphysema -continue to monitor (2) Dizziness: Code(s): R42 - Dizziness and giddiness Status: Acute Assessment and Plan: CT scan of the brain did not show any acute findings, old infarcts in the right cerebellum, skyler and left thalamus -carotid Dopplers showed < 50% stenosis of right and left internal carotid arteries -MRI cannot be done here as patient has a pacemaker -patient does have old infarcts in the right cerebellum which could possibly cause some stable anti problems -could be related to hypertension urgency -PT/OT to evaluate the patient (3) Fall: Code(s): W19.XXXA - Unspecified fall, initial encounter Status: Acute Assessment and Plan: As above (4) End-stage renal disease on hemodialysis: Code(s): N18.6 - End stage renal disease; Z99.2 - Dependence on renal dialysis Status: Acute Assessment and Plan: End-stage renal disease on dialysis, Friday, and Saturdays -nephrology following the patient, -dialysis per Nephrology (5) Chronic obstructive pulmonary disease: Code(s): J44.9 - Chronic obstructive pulmonary disease, unspecified Status: Acute Assessment and Plan: Patient with history of COPD and emphysema -continue bronchodilators, Plan DVT prophylaxis: SCds Stress ulcer prophylaxis:famotidine Nutrition: speech to evaluate Code Status:Full code Critical Care Time Spent: 44 minutes Due to a high probability of clinically significant, life threatening deterioration, the patient required my highest level of preparedness to intervene emergently and I personally spent this critical care time directly and personally managing the patient. This critical care time included obtaining a history; examining the patient; pulse oximetry; ordering and review of studies; arranging urgent treatment with development of a management plan; evaluation of patient's response to treatment; frequent reassessment; and discussions with other providers. It was exclusive of separately billable procedures and treating other patients and teaching time. Please see Assessment and Plan section and the rest of the note for further information on patient assessment and treatment [employer] Consult Note Consult date: 07/07/22 Reason for consult: Questionable Angioedema likely from hydralazine HPI: Sachin Donahue is a 66 year old male with PMH ?end stage renal disease on hemodialysis, hypertension, stroke,COPD, smoker, presented to the ED on 07/06/2022 via EMS from dialysis for evaluation of dizziness after a fall. While being discharged from the ED he fell from his wheelchair as he bent over to put on his showed and fell dizzy. Pt was admitted to the hospital for observation. He was given hydralazine for hypertension, which was the only new medication that he received in the hospital and complained of f face, tongue and throat swelling. Pt was given solumedrol, Pepcid, Benadryl. Patient seen and examined this morning in the ICU, states his swelling is much improved, denies any difficulty swallowing, no drooling. His uvula is still a little swollen and boggy, unknown if this is chronic. CT scan of the neck and soft don
--- NOTE | 2022-07-07 12:35 | PCSTNOTE ---
Please refer to the Bedside Swallow Evaluation in the EMR. Please note, silent aspiration cannot be ruled out at bedside.
[2022-07-07] MEDS: SODIUM BICARBONATE TAB 650 MG TABLET PO ×2 (12:56→16:43)
[2022-07-07] MEDS: DIVALPROEX SODIUM ER 500 MG TAB.24H PO ×2 (12:56→22:36)
[2022-07-07] MEDS: levETIRAcetam 250 MG TABLET PO ×2 (12:57→22:35)
[2022-07-07] MEDS: ATORVASTATIN 40 MG TABLET PO (12:57)
[2022-07-07] MEDS: ISOSORBIDE MONONITRATE 30 MG TAB.ER.24H PO (12:57)
[2022-07-07] MEDS: ASPIRIN 81 MG ENTERIC TABLET PO (12:57)
[2022-07-07] MEDS: NIFEdipine 30 MG TAB.ER.24 90 MG PO (12:57)
[2022-07-07 13:03] LABS: Anion Gap 15 mmol/L (8-16); Blood Urea Nitrogen 30 mg/dL (9-20); Calcium 9.2 mg/dL (8.4-10.2); Carbon Dioxide 26 mmol/L (22-30); Chloride 100 mmol/L (98-107); Estimated CRCL calculation 9 ml/min; Estimated Glomerular Filt Rate 11; Glucose 147 mg/dL (65-110); Magnesium 2.3 mg/dL (1.6-2.3); Potassium 4.1 mmol/L (3.4-5.0); Sodium 141 mmol/L (137-145)
--- NOTE | 2022-07-07 13:18 | PCSTNOTE ---
On 07/07/22, the student, Sabine David, provided care and completed [facility] documentation on this patient. I have reviewed the student's documentation and agree with the findings.
[2022-07-07 13:43] LABS: Valproic Acid 35.5 ug/mL (50-120)
[2022-07-07] MEDS: amLODIPine BESYLATE 5 MG TABLET PO (14:06)
[2022-07-07] MEDS: LIDOCAINE HCL 1% LOCAL INJ 20 ML VIAL INFILTRATE (15:53)
--- NOTE | 2022-07-07 16:11 | WPDPROCEDUR ---
Procedures Other Procedures Procedure 1: Other Procedure: flexible laryngoscopy risks benefits costs discussed the patient great detail. Afrin lidocaine applied to the bilateral nasal passages. 5 mm large ICU flexible laryngoscope passed through the nasal passage the nasopharynx and oropharynx were completely normal there is a slight bulge more the right than left the retropharynx of the pharyngeal and hypopharyngeal airway airways intact vocal cords with full and symmetrically no masses lesions no ulcerations. Patient tolerated the procedure very well
--- NOTE | 2022-07-07 16:12 | WPDCN ---
Assessment and Plan Assessment and plan (1) Angioedema: Code(s): T78.3XXA - Angioneurotic edema, initial encounter Status: Acute Assessment and Plan: patient may have angioedema but may be more fluid overload status then anything else. I would continue 24 more hours of IV steroids then slowly pulled back from nose. The patient has a stable airway it is currently no risk of compromise. The patient has he any difficulty breathing or get 6 septic toxic in any way please let me know could consider Demetrio coping in 48 hours but only the patient needs it. If he is okay for discharge and discharged and has no trouble breathing and is not sick scoping may reveal nothing. HPI Data of Consult Date/Time: 07/07/22 16:12 Requesting Physician: Susanna Marrero DO Primary Care Provider: PHYSICIAN NOT ON STAFF Consult Narrative Narrative: Sachin Donahue is a 66 year old male was recently admitted to the ICU for concern angioedema. patient is on dialysis. CT without contrast demonstrates a retropharyngeal hypodensity could represent fluid collection. ENT consult for further evaluation treatment [facility] Past Medical History Medical History (Updated 07/07/22 @ 09:33 by Nikhil Bernal MD) Cerebrovascular accident Chronic obstructive pulmonary disease Coronary artery disease COVID-19 (02/2022) End-stage renal disease on hemodialysis Friday, , Friday. Hypertension Peripheral vascular disease Seizure-like activity Normal EEG in April 2022 though patient is on levetiracetam. Tobacco abuse Surgical History Surgical History (Updated 07/06/22 @ 20:53 by Mily Rhodes PA-C) History of percutaneous coronary intervention Iliac stent. Cardiac stents. History of permanent cardiac pacemaker placement Family History Family History Father Cancer of lung Mother Heart failure Social History Social History (Updated 07/06/22 @ 20:54 by Mily Rhodes PA-C) Social History: Healthcare power of employment attorney: Von Donahue, son. Code status: Full code. Smoking packs per day: 2 Smoking cigarettes per day: 40.0 Years smoked: 40 Smoking pack-years: 80.00 Smoking status: Current every day smoker Tobacco type: cigarettes Alcohol intake: never Substance use: never Additional living arrangements comments: The patient lives in [place]. His son Von lives at home with him. Spiritual care concerns: No Meds Home Medications and Allergies Home Medications Medication Instructions Recorded Confirmed Type aspirin 81 mg tablet,delayed 81 mg PO DAILY 03/19/22 07/06/22 History release atorvastatin 40 mg tablet 40 mg PO DAILY 03/19/22 07/06/22 History divalproex 500 mg tablet,extended 500 mg PO BID 03/19/22 07/06/22 History release 24 hr famotidine 20 mg tablet 20 mg PO HS 03/19/22 07/06/22 History nifedipine 90 mg tablet,extended 90 mg PO DAILY 03/19/22 07/06/22 History release oxybutynin chloride 10 mg 10 mg PO DAILY 03/19/22 07/06/22 History tablet,extended release 24 hr sodium bicarbonate 650 mg tablet 650 mg PO TID 03/19/22 07/06/22 History umeclidinium 62.5 mcg/actuation 1 inh inhalation DAILY 03/24/22 07/06/22 History blister powder for inhalation (Incruse Ellipta) fluticasone 500 mcg-salmeterol 50 1 inh inhalation BID 04/24/22 07/06/22 History mcg/dose blistr powdr for inhalation (Advair Diskus) isosorbide mononitrate 30 mg 30 mg PO DAILY 05/04/22 07/06/22 History tablet,extended release 24 hr levetiracetam 250 mg tablet 250 mg PO Q12HR #60 tabs 05/10/22 07/06/22 Rx lisinopril 20 mg tablet 40 mg PO QAM #30 tabs 05/10/22 07/06/22 Rx Allergies Allergy/AdvReac Type Severity Reaction Status Date / Time No Known Allergies Allergy Verified 03/27/22 20:03 Vital Signs Vital Signs - 24 hr 07/06/22 16:13 07/06/22 17:55 07/06/22 18:15 Temperature
[2022-07-07] MEDS: dexmedeTOMIDine 400 MCG/100 ML 400 MCG/100 ML BAG IV CONT (16:59)
[2022-07-07] MEDS: FLUTICASONE/SALMETEROL 230-21 MCG INHALER 1 PUFF 2 PUFF INHALATION (20:55)
[2022-07-07] MEDS: dexmedeTOMIDine 400 MCG/100 ML 400 MCG/100 ML BAG 19.95 MCG IV CONT (22:37)
[2022-07-08] VITALS (20 sets, daily range): BP systolic 106–181; BP diastolic 72–103; PULSE 60–70; RESP 12–27; TEMP 36.5–37.1; O2SAT 93–98
[2022-07-08] MEDS: methylPREDNISolone SOD SUCC 125 MG VIAL 60 MG IV PUSH ×2 (01:51→06:48)
[2022-07-08] MEDS: diphenhydrAMINE HCl INJ 50 MG/ML VIAL 25 MG IV PUSH ×3 (03:52→14:37)
[2022-07-08] MEDS: dexmedeTOMIDine 400 MCG/100 ML 400 MCG/100 ML BAG 19.95 MCG IV CONT (03:53)
[2022-07-08] MEDS: LABETALOL HCL INJ 100 MG/20 ML VIAL 20 MG IV PUSH ×2 (03:57→08:10)
[2022-07-08 04:48] LABS: Basophils Percent Auto 0.2 % (0.2-1.2); Hematocrit 36.8 % (42.0-52.0); Hemoglobin 12.6 g/dL (14.0-18.0); Immature Granulocyte Absolute 0.05 K/mm3 (0.00-0.031); Immature Granulocyte Percent A 0.4 % (0-0.5); Lymphocytes Absolute Auto 0.68 K/mm3 (0.9-3.2); Lymphocytes Percent Auto 5.8 % (18.3-44.2); Mean Corpuscular HGB Conc 34.2 g/dl (32-36); Mean Corpuscular Hemoglobin 32.6 pg (26-34); Mean Corpuscular Volume 95.1 fl (80-100); Mean Platelet Volume 10.6 fl (7.4-10.4); Monocytes Absolute Auto 0.3 K/mm3 (0.1-0.6); Monocytes Percent Auto 2.1 % (2.6-8.5); Neutrophils Absolute Auto 10.8 K/mm3 (1.3-6.7); Neutrophils Percent Auto 91.5 % (45.5-73.1); Platelet Count Result 247 k/mm3 (150-375); Red Blood Count 3.87 M/mm3 (4.6-6.20); Red Cell Distribution Width 12.7 % (11.5-14.5); White Blood Count 11.8 K/mm3 (4.5-10.0)
[2022-07-08 04:58] LABS: Alanine Aminotransferase 18 U/L (6-50); Albumin Level 4.2 g/dL (3.5-5.1); Alkaline Phosphatase 83 U/L (38-126); Anion Gap 12 mmol/L (8-16); Aspartate Amino Transferase 18 U/L (17-59); Bilirubin,Total 0.4 mg/dL (0.2-1.3); Blood Urea Nitrogen 39 mg/dL (9-20); Carbon Dioxide 25 mmol/L (22-30); Chloride 100 mmol/L (98-107); Estimated CRCL calculation 8 ml/min; Estimated Glomerular Filt Rate 10; Glucose 176 mg/dL (65-110); Magnesium 2.4 mg/dL (1.6-2.3); Phosphorus 3.8 mg/dL (2.5-4.5); Potassium 4.5 mmol/L (3.4-5.0); Sodium 137 mmol/L (137-145)
[2022-07-08] MEDS: ATORVASTATIN 40 MG TABLET PO (08:11)
[2022-07-08] MEDS: SODIUM BICARBONATE TAB 650 MG TABLET PO ×3 (08:11→16:15)
[2022-07-08] MEDS: FAMOTIDINE 20 MG/2 ML VIAL IV PUSH (08:12)
[2022-07-08] MEDS: levETIRAcetam 250 MG TABLET PO ×2 (08:12→19:53)
[2022-07-08] MEDS: ASPIRIN 81 MG ENTERIC TABLET PO (08:12)
[2022-07-08] MEDS: DIVALPROEX SODIUM ER 500 MG TAB.24H PO ×2 (08:13→19:53)
[2022-07-08] MEDS: ISOSORBIDE MONONITRATE 30 MG TAB.ER.24H PO (08:13)
[2022-07-08] MEDS: NIFEdipine 30 MG TAB.ER.24 90 MG PO (08:13)
--- NOTE | 2022-07-08 08:17 | PM.CNNEP ---
Assessment and Plan Assessment and plan (1) End-stage renal disease on hemodialysis: Code(s): N18.6 - End stage renal disease; Z99.2 - Dependence on renal dialysis Status: Acute Assessment and Plan: the patient has end-stage renal disease. He has vascular disease and hypertension which probably are the cause. He dialyzes on Tuesdays and Saturdays. He is breathing comfortably now . His chest x-ray is clear. He has no edema. Potassium and bicarbonate are both okay. Will do treatment tomorrow. (2) Chronic obstructive pulmonary disease: Code(s): J44.9 - Chronic obstructive pulmonary disease, unspecified Status: Acute Assessment and Plan: The patient is a heavy smoker and continues to smoke. he is getting supportive care. (3) Coronary artery disease: Code(s): I25.10 - Atherosclerotic heart disease of the [place] coronary artery without angina pectoris Status: Acute Assessment and Plan: The patient has coronary artery disease. No activity at this point troponins are normal. (4) Cerebrovascular accident: Code(s): I63.9 - Cerebral infarction, unspecified Status: Acute Assessment and Plan: He has had a stroke in the past. (5) Hypertensive urgency: Code(s): I16.0 - Hypertensive urgency Status: Acute Assessment and Plan: His blood pressure is high. There is concern for angioedema so lisinopril is on hold. He is on nifedipine at home. We can hold the amlodipine since it is in the same class. he is on labetalol p.r.n. and add clonidine for better blood pressure control. (6) Dizziness: Code(s): R42 - Dizziness and giddiness Status: Acute Assessment and Plan: he has been having dizzy spells for a few days before this. He has old infarcts in the right cerebellum skyler and left thalamus. Some of the dizzy spells may be related to this. (7) Erythropoietin deficiency anemia: Code(s): D63.1 - Anemia in chronic kidney disease Status: Acute Assessment and Plan: His hemoglobin is low but not low enough for Epogen. (8) Renal osteodystrophy: Code(s): N25.0 - Renal osteodystrophy Status: Acute Assessment and Plan: Will check a phosphorus level in the morning History of Present Illness Reason for Consult Consult date: 07/08/22 Chief Complaint Chief complaint: dizziness,fall,hemodialysis patient History of Present Illness Narrative: Joshua is a very pleasant 66-year-old gentleman who has multiple medical problems including end-stage renal disease on dialysis 3 times a week under the care Dr. Forte, history of stroke, coronary disease, myocardial infarction, COPD, hypertension, peripheral vascular disease, seizure-like activity with a normal EEG, and he currently smokes. He is able to answer yes no questions and a few short answers but much of the story is obtained from the chart. The patient was at dialysis on Friday. Things are going pretty well until he became somewhat lightheaded. He slid out of his chair onto the floor and thinks he hit his head according to the admission note. The nurses noted that he had garbled speech and some confusion so he was sent to the ER for evaluation. He apparently had been having dizzy spells for a few days before that. Apparently had a little bit of a headache. He also had a cough which is chronic because of his smoking. He has not missed any treatments. His dialysis has been going pretty well until Friday session. It is not clear how long of a dialysis he actually got. Past history is as above Patient does not drink alcohol. He does smoke 2 packs of cigarettes per day. Review of Systems Constitutional: Constitutional: Reports no additional constitutional complaints Eyes: Eyes: Reports no additional eye complaints ENT: Reports system reviewed and no additional complaints, except as documented Ca
--- NOTE | 2022-07-08 08:53 | WPDINTPN ---
Progress Note: A&P Assessment and Plan (1) Angioedema: Code(s): T78.3XXA - Angioneurotic edema, initial encounter Status: Acute Assessment and Plan: 07/07 overnight patient had swelling of his face, tongue and throat. Patient was given Solu-Medrol, Pepcid and Benadryl -yesterday morning states he feels much better, denies any drooling or difficulty swallowing. Feels at his tongue and throat swelling has decreased -I do not see any evidence of angioedema on limited exam the. 07/07 Flexible laryngoscopy done by ENT risks benefits costs discussed the patient great detail.? Afrin lidocaine applied to the bilateral nasal passages.? 5 mm large ICU flexible laryngoscope passed through the nasal passage the nasopharynx and oropharynx were completely normal there is a slight bulge more the right than left the retropharynx of the pharyngeal and hypopharyngeal airway airways intact vocal cords with full and symmetrically no masses lesions no ulcerations.? Patient tolerated the procedure very well -no respiratory distress, patient on room air, normal speech -DC Benadryl, continue Pepcid, wean off Solu-Medrol -07/07/2022 CT scan of the neck and soft: Showed mild narrowing of the pharyngeal airway, nonspecific fluid collection the retropharyngeal space, indeterminate etiology soft tissue swelling with subcutaneous edema at the head and neck most prominent the preseptal and periorbital soft tissues, severe emphysema -continue to monitor (2) Dizziness: Code(s): R42 - Dizziness and giddiness Status: Acute Assessment and Plan: CT scan of the brain did not show any acute findings, old infarcts in the right cerebellum, skyler and left thalamus -carotid Dopplers showed < 50% stenosis of right and left internal carotid arteries -MRI cannot be done here as patient has a pacemaker -patient does have old infarcts in the right cerebellum which could possibly cause some stable anti problems -could be related to hypertension urgency -PT/OT to evaluate the patient (3) Fall: Code(s): W19.XXXA - Unspecified fall, initial encounter Status: Acute Assessment and Plan: As above (4) End-stage renal disease on hemodialysis: Code(s): N18.6 - End stage renal disease; Z99.2 - Dependence on renal dialysis Status: Acute Assessment and Plan: End-stage renal disease on dialysis, Friday, and Saturdays Nephrology consulted (5) Chronic obstructive pulmonary disease: Code(s): J44.9 - Chronic obstructive pulmonary disease, unspecified Status: Acute Assessment and Plan: Patient with history of COPD and emphysema -continue bronchodilators, (6) Delirium: Code(s): R41.0 - Disorientation, unspecified Status: Acute Assessment and Plan: Patient was started on Precedex infusion overnight I have weaned him off this morning and will continue monitor (7) Hypertension: Code(s): I10 - Essential (primary) hypertension Status: Acute Assessment and Plan: Uncontrolled hypertension Increase Norvasc to 10 mg Nephrology has started clonidine Continue Imdur, Procardia XL P.r.n. labetalol Plan DVT prophylaxis: SCD Stress ulcer prophylaxis:famotidine Nutrition: On full liquid diet Code Status:Full code Critical Care Time Spent: 30 minutes Due to a high probability of clinically significant, life threatening deterioration, the patient required my highest level of preparedness to intervene emergently and I personally spent this critical care time directly and personally managing the patient. This critical care time included obtaining a history; examining the patient; pulse oximetry; ordering and review of studies; arranging urgent treatment with development of a management plan; evaluation of patient's response to treatment; frequent reassessment; and discussions with other providers. It was exclusive of separately billable procedures and treating other ezequiel
[2022-07-08] MEDS: amLODIPine BESYLATE 5 MG TABLET 10 MG PO (09:06)
[2022-07-08] MEDS: cloNIDine HCL 0.1 MG TABLET PO ×2 (09:08→16:15)
[2022-07-08 09:18] LABS: Hepatitis B Surface Antigen Negative (Negative)
[2022-07-08] MEDS: UMECLIDINIUM BROMIDE 62.5 MCG ELLIPTA 1 PUFF INHALATION (10:06)
[2022-07-08] MEDS: FLUTICASONE/SALMETEROL 230-21 MCG INHALER 1 PUFF 2 PUFF INHALATION ×2 (10:06→20:17)
[2022-07-08] MEDS: ACETAMINOPHEN 325 MG TABLET 650 MG PO (18:15)
--- NOTE | 2022-07-08 18:39 | PM.IMPN ---
Progress Note: A&P Assessment and Plan (1) Angioedema: Code(s): T78.3XXA - Angioneurotic edema, initial encounter Status: Acute Assessment and Plan: Ko valentine MD called for face swelling, tongue swelling and feeling as if his throat was tight and swollen.??Patient has known dysarthria. He has a swallow study in April not showing any concerns. The only new medication the patient he had received since admission was hydralazine but he is on lisinopril at home. Patient was moved to the ICU and started on IV Benadryl, Pepcid and Solu-Medrol. He was seen by ENT and had flexible laryngoscopy 07/07/22 showing no concerns for angioedema. Slight bulge noted (R>L) retropharynx felt to be related to edema. CT neck showing mild narrowing of the pharyngeal airway from a fluid collection in the retropharyngeal space. Soft tissue swelling with edema noted as well. He still has persistent feeling of throat swelling. Stop Benadryl and Pepcid. Wean off steroids. (2) Dizziness: Code(s): R42 - Dizziness and giddiness Status: Acute Assessment and Plan: Patient reports feeling lightheaded and dizzy for the last several days. Orthostatic vital signs were normal. Brain CT showing no acute findings. Carotid US showing <50% bilateral ICA. No brain MRI since he has a PM. Telemetry noted and no cardiac dysrhythmia noted. Etiology is not entirely clear. Continue fall precautions. Contnue PT/OT. VPA level pending (3) Fall: Code(s): W19.XXXA - Unspecified fall, initial encounter Status: Acute Assessment and Plan: While in HD, patient slid off the recliner and fell on the floor on his buttock possibly hitting the back of his head on the floor. Not long after, the staff thought his speech was garbled and he seemed a bit confused. In the ED, he bent over to tie his shoes and became LH and fell forward out of his wheelchair to the ground (landing on his hands and knees). No LOC. Per ED note, the patient was able to be up walking with staff but felt LH and a feeling that he was going to fall. He was not orthostatic. Speech therapy felt patient was low risk for aspiration.Consider CTA head/neck but CTA performed on 04/04/22 showing old lacunar infarct left thalamus, 0% stenosis bilateral ICA, severe stenosis proximal right vertebral artery. Could be having posterior circulation issues but seems less likely due to good collateral flow. Continue PT/OT. (4) End-stage renal disease on hemodialysis: Code(s): N18.6 - End stage renal disease; Z99.2 - Dependence on renal dialysis Status: Acute Assessment and Plan: Patient has HD //Fri. He had HD 07/06. Nephrology consult. Resume HD per Nephrology schedule. Consider more aggressive HD to improve fluid status. (5) Chronic obstructive pulmonary disease: Code(s): J44.9 - Chronic obstructive pulmonary disease, unspecified Status: Acute Assessment and Plan: No acute issues. No wheezing. Continue maintenance inhalers. (6) Hypertension: Code(s): I10 - Essential (primary) hypertension Status: Chronic Assessment and Plan: Blood pressures are elevated at times. His home antihypertensives have been resumed. Hydralazine p.r.n. has been added. Continue to monitor closely and make adjustments accordingly. (7) Tobacco abuse: Code(s): Z72.0 - Tobacco use Status: Acute Assessment and Plan: The benefits of smoking cessation was discussed though he appeared unmotivated. He declined the need for nicotine patch. Subjective Date/time seen: 07/08/22 18:39 Interval history: 66yo male with ESRD, hx of CVA, HTN and COPD here for dizziness and fall during HD. Still with the feelin got ightness in his throat but able to handle his secretions and able to eat without difficulty. No SOB. No chest pain more than his 'usual amount'. No n/v. Exam Narrative: AF 97.7 114/72 60 27 97% ra Gen - NARD si
[2022-07-08] MEDS: FAMOTIDINE 20 MG TABLET PO (19:54)
[2022-07-09] VITALS (30 sets, daily range): BP systolic 98–151; BP diastolic 56–96; PULSE 58–133; RESP 16–21; TEMP 35.9–37; O2SAT 93–99
[2022-07-09] MEDS: cloNIDine HCL 0.1 MG TABLET PO ×2 (00:05→07:57)
[2022-07-09 04:28] LABS: Hematocrit 33.5 % (42.0-52.0); Hemoglobin 11.3 g/dL (14.0-18.0); Mean Corpuscular HGB Conc 33.7 g/dl (32-36); Platelet Count Result 231 k/mm3 (150-375); Red Blood Count 3.42 M/mm3 (4.6-6.20); Red Cell Distribution Width 12.9 % (11.5-14.5); White Blood Count 13.4 K/mm3 (4.5-10.0)
[2022-07-09 04:46] LABS: Alanine Aminotransferase 14 U/L (6-50); Albumin Level 3.6 g/dL (3.5-5.1); Alkaline Phosphatase 71 U/L (38-126); Anion Gap 9 mmol/L (8-16); Aspartate Amino Transferase 18 U/L (17-59); Bilirubin,Total 0.3 mg/dL (0.2-1.3); Blood Urea Nitrogen 56 mg/dL (9-20); Calcium 8.1 mg/dL (8.4-10.2); Carbon Dioxide 27 mmol/L (22-30); Chloride 96 mmol/L (98-107); Estimated CRCL calculation 8 ml/min; Estimated Glomerular Filt Rate 8; Glucose 90 mg/dL (65-110); Magnesium 2.2 mg/dL (1.6-2.3); Phosphorus 3.7 mg/dL (2.5-4.5); Potassium 3.8 mmol/L (3.4-5.0); Sodium 132 mmol/L (137-145)
[2022-07-09] MEDS: ACETAMINOPHEN 325 MG TABLET 650 MG PO (07:50)
[2022-07-09] MEDS: amLODIPine BESYLATE 5 MG TABLET 10 MG PO (07:51)
[2022-07-09] MEDS: NIFEdipine 30 MG TAB.ER.24 90 MG PO (07:51)
[2022-07-09] MEDS: methylPREDNISolone SOD SUCC 125 MG VIAL 60 MG IV PUSH (07:51)
[2022-07-09] MEDS: DIVALPROEX SODIUM ER 500 MG TAB.24H PO ×2 (07:52→20:50)
[2022-07-09] MEDS: ASPIRIN 81 MG ENTERIC TABLET PO (07:53)
[2022-07-09] MEDS: ATORVASTATIN 40 MG TABLET PO (07:53)
[2022-07-09] MEDS: levETIRAcetam 250 MG TABLET PO ×2 (07:53→20:51)
[2022-07-09] MEDS: SODIUM BICARBONATE TAB 650 MG TABLET PO ×3 (07:53→17:22)
[2022-07-09] MEDS: ISOSORBIDE MONONITRATE 30 MG TAB.ER.24H PO (07:53)
--- NOTE | 2022-07-09 07:53 | PM.IMPN ---
Progress Note: A&P Assessment and Plan (1) Angioedema: Code(s): T78.3XXA - Angioneurotic edema, initial encounter Status: Acute Assessment and Plan: Ko valentine MD called on 07/07 for face swelling, tongue swelling and feeling as if his throat was tight and swollen.??Patient has known dysarthria. He has a swallow study in April not showing any concerns. The only new medication the patient received since admission was hydralazine but he is on lisinopril at home. Patient was moved to the ICU and started on IV Benadryl, Pepcid and Solu-Medrol. He was seen by ENT and had flexible laryngoscopy 07/07/22 showing no concerns for angioedema. Slight bulge noted (R>L) retropharynx felt to be related to edema. CT neck showing mild narrowing of the pharyngeal airway from a fluid collection in the retropharyngeal space. Soft tissue swelling with edema noted as well. He still has persistent feeling of throat swelling. Angioedema ruled out. Benadryl stopped. Weaning off steroids. Check CTA head/neck to exclude a SVT type syndrome possibly from thrombus. HD later today to dialysize off the contrast. Discussed CTA report reviewed and discussed with ENT. Patient may have poor venous return resulting in the face and neck edema. May be hard to control with HD but could improve if he has fistula and removal of central catheter, (2) Fall: Code(s): W19.XXXA - Unspecified fall, initial encounter Status: Acute Assessment and Plan: While in HD, patient slid off the recliner and fell on the floor on his buttock possibly hitting the back of his head on the floor. Not long after, the staff thought his speech was garbled and he seemed a bit confused. In the ED, he bent over to tie his shoes and became LH and fell forward out of his wheelchair to the ground (landing on his hands and knees). No LOC. Per ED note, the patient was able to be up walking with staff but felt LH and a feeling that he was going to fall. He was not orthostatic. Speech therapy felt patient was low risk for aspiration. CTA performed on 04/04/22 showing old lacunar infarct left thalamus, 0% stenosis bilateral ICA, severe stenosis proximal right vertebral artery and sevee stenosis of prox left external carotid artery CTA Chest 05/04/22 showing no aneurysm or dissection. Could be having posterior circulation issues causing his dizziness and falls but seems less likely due to good collateral flow. Continue PT/OT. (3) Dizziness: Code(s): R42 - Dizziness and giddiness Status: Acute Assessment and Plan: Patient reports feeling lightheaded and dizzy for the last several days. Orthostatic vital signs were normal. Brain CT showing no acute findings. VPA 35. Carotid US showing <50% bilateral ICA. No brain MRI since he has a PM. Telemetry noted and no cardiac dysrhythmia noted. Etiology is not entirely clear. Continue fall precautions. PT/OT. Increase activity. As above. (4) End-stage renal disease on hemodialysis: Code(s): N18.6 - End stage renal disease; Z99.2 - Dependence on renal dialysis Status: Acute Assessment and Plan: Patient has HD //Fri. He had HD 07/06. Nephrology consult. Resume HD per Nephrology schedule. (5) Chronic obstructive pulmonary disease: Code(s): J44.9 - Chronic obstructive pulmonary disease, unspecified Status: Acute Assessment and Plan: No acute issues. No wheezing. Continue maintenance inhalers. (6) Hypertension: Code(s): I10 - Essential (primary) hypertension Status: Chronic Assessment and Plan: Blood pressures are better controlled. His home antihypertensives have been resumed. Hydralazine p.r.n. has been added. Continue to monitor closely and make adjustments accordingly. (7) Tobacco abuse: Code(s): Z72.0 - Tobacco use Status: Acute Assessment and Plan: The benefits of smoking cessation was discussed though he appeared unmotivated. H
[2022-07-09] MEDS: FAMOTIDINE 20 MG TABLET PO ×2 (07:54→20:51)
[2022-07-09] MEDS: UMECLIDINIUM BROMIDE 62.5 MCG ELLIPTA 1 PUFF INHALATION (08:26)
[2022-07-09] MEDS: FLUTICASONE/SALMETEROL 230-21 MCG INHALER 1 PUFF 2 PUFF INHALATION ×2 (08:26→20:50)
--- NOTE | 2022-07-09 09:21 | PM.PNNEP ---
Progress Note: A&P Assessment and Plan (1) End-stage renal disease on hemodialysis: Code(s): N18.6 - End stage renal disease; Z99.2 - Dependence on renal dialysis Status: Acute Assessment and Plan: the patient has end-stage renal disease. He has vascular disease and hypertension which probably are the cause. He dialyzes on Tuesdays and Saturdays. he is due for dialysis today. He is breathing comfortably now . His chest x-ray is clear. He has no edema except in his face. Any excessive fluid can make facial edema worse however. So will try to take some fluid off in dialysis. Potassium and bicarbonate are both okay. (2) Chronic obstructive pulmonary disease: Code(s): J44.9 - Chronic obstructive pulmonary disease, unspecified Status: Acute Assessment and Plan: The patient is a heavy smoker and continues to smoke. he is getting supportive care. (3) Coronary artery disease: Code(s): I25.10 - Atherosclerotic heart disease of [place] coronary artery without angina pectoris Status: Acute Assessment and Plan: The patient has coronary artery disease. No activity at this point troponins are normal. no chest pain. (4) Cerebrovascular accident: Code(s): I63.9 - Cerebral infarction, unspecified Status: Acute Assessment and Plan: He has had a stroke in the past. (5) Hypertensive urgency: Code(s): I16.0 - Hypertensive urgency Status: Acute Assessment and Plan: His blood pressure Is much better. Systolic ranging in the 130s and 150s. He is on both amlodipine and nifedipine. Will stop the former. He is also on clonidine. (6) Dizziness: Code(s): R42 - Dizziness and giddiness Status: Acute Assessment and Plan: he has been having dizzy spells for a few days before this. He has old infarcts in the right cerebellum skyler and left thalamus. Some of the dizzy spells may be related to this. (7) Erythropoietin deficiency anemia: Code(s): D63.1 - Anemia in chronic kidney disease Status: Acute Assessment and Plan: His hemoglobin is low but not low enough for Epogen. (8) Renal osteodystrophy: Code(s): N25.0 - Renal osteodystrophy Status: Acute Assessment and Plan: Phosphorus level is normal (9) Facial edema: Code(s): R60.0 - Localized edema Status: Acute Assessment and Plan: discussed with Dr. Bernal and . he is going to get a CT angio today to rule out SVC syndrome. Subjective Date/time seen: 07/09/22 09:21 Interval history: Thuan is feeling a little better today. A little more awake. No chest pain or shortness of breath. Review of Systems Cardiovascular: Cardiovascular: Reports no additional cardiovascular complaints Respiratory: Respiratory: Reports no additional respiratory complaints Gastrointestinal: Gastrointestinal: Reports no additional gastrointestinal complaints Genitourinary: Genitourinary: Reports no additional male genitourinary complaints Exam Narrative: WDWN in NAD skin no rash or subcu nodules head ncat lungs clear cor reg no rub or gallop abd BS+ nontender and soft ext Mild facial edema. No lower extremity edema. Objective Data Vital Signs Vital Signs: Vital Signs - 24 hr 07/08/22 10:23 07/08/22 10:00 07/08/22 10:00 Temperature Pulse Rate 60 60 60 Respiratory Rate 16 16 Blood Pressure 135/81 Pulse Oximetry 96 Oxygen Delivery 07/08/22 12:00 07/08/22 12:00 07/08/22 12:00 Temperature 36.6 C Pulse Rate 60 60 60 Respiratory Rate 18 18 Blood Pressure 119/77 Pulse Oximetry 98 98 Oxygen Delivery Room Air 07/08/22 14:00 07/08/22 16:00 07/08/22 16:00 Temperature 36.5 C Pulse Rate 65 60 60 Respiratory Rate 19 27 H Blood Pressure 106/79 114/72 Pulse Oximetry 93 97 Oxygen Delivery 07/08/22 16:00 07/08/22 17:58 07/08
[2022-07-09] MEDS: cloNIDine HCL 0.2 MG TABLET PO ×2 (13:14→20:51)
--- NOTE | 2022-07-09 13:20 | PC.NURSE ---
Patient to dialysis
[2022-07-09 13:51] LABS: Add Urine Microscopic? YES; Appearance Urine Cloudy (Clear); Bacteria Urine Trace /hpf; Bilirubin Urine Negative (Negative); Blood Urine 1+ (Negative); Color Urine Yellow (Yellow); Glucose Urine UA 1+ mg/dL (Negative); Ketones Urine Negative (Negative); Leukocyte Esterase Ur Negative LEU/UL (Negative); Mucus Urine Rare /lpf; Nitrate Urine Negative (Negative); Protein Urine 1+ mg/dL (Negative); Specific Grav Ur 1.027 (1.001-1.035); Squamous Epithelial Cell Urine Rare /hpf (Few); Urobilinogen Urine Negative mg/dL (<2.0); WBC Urine 0-3 /hpf
--- NOTE | 2022-07-09 16:42 | PM.PNGS ---
Progress Note: A&P Assessment and Plan (1) Facial edema: Code(s): R60.0 - Localized edema Status: Acute Assessment and Plan: CT personally reviewed, retropharyngeal fluid now resolved. No otolaryngologic explanation for patient's leukocytosis seen on recent CT scan. Please call with any questions. Subjective Subjective Date/Time Seen: 07/09/22 16:42 Objective Data Vital Signs Vital Signs: Vital Signs - 24 hr 07/08/22 17:58 07/08/22 20:15 07/08/22 20:00 Temperature Pulse Rate 60 70 70 Respiratory Rate 14 Blood Pressure Pulse Oximetry Oxygen Delivery 07/08/22 20:00 07/08/22 20:00 07/08/22 22:00 Temperature 36.5 C Pulse Rate 70 60 60 Respiratory Rate 14 21 H Blood Pressure 119/75 Pulse Oximetry 97 96 Oxygen Delivery Room Air 07/08/22 23:57 07/09/22 00:00 07/09/22 00:00 Temperature 36.4 C Pulse Rate 60 66 66 Respiratory Rate 14 19 Blood Pressure 142/82 H Pulse Oximetry 96 96 Oxygen Delivery Room Air 07/09/22 02:00 07/09/22 03:39 07/09/22 04:00 Temperature Pulse Rate 63 63 60 Respiratory Rate 19 Blood Pressure Pulse Oximetry 96 Oxygen Delivery Room Air 07/09/22 04:00 07/09/22 06:00 07/09/22 07:27 Temperature 36.6 C 36.8 C Pulse Rate 60 65 60 Respiratory Rate 18 16 Blood Pressure 135/81 135/81 Pulse Oximetry 96 95 Oxygen Delivery 07/09/22 08:29 07/09/22 08:00 07/09/22 08:00 Temperature Pulse Rate 60 60 Respiratory Rate 21 H Blood Pressure 151/96 H Pulse Oximetry 99 96 Oxygen Delivery Room Air 07/09/22 08:00 07/09/22 08:00 07/09/22 10:00 Temperature Pulse Rate 60 60 65 Respiratory Rate 21 H 21 H Blood Pressure 151/96 H Pulse Oximetry 96 96 Oxygen Delivery Room Air 07/09/22 12:00 07/09/22 12:00 07/09/22 12:00 Temperature 36.8 C Pulse Rate 60 60 60 Respiratory Rate 17 17 Blood Pressure 104/68 Pulse Oximetry 93 93 Oxygen Delivery Room Air 07/09/22 13:34 07/09/22 13:25 07/09/22 13:50 Temperature 36.3 C L Pulse Rate 65 75 133 H Respiratory Rate 16 Blood Pressure 116/67 123/67 123/90 Pulse Oximetry Oxygen Delivery 07/09/22 14:00 07/09/22 14:10 07/09/22 14:30 Temperature Pulse Rate 66 69 65 Respiratory Rate Blood Pressure 98/56 L 108/60 Pulse Oximetry Oxygen Delivery 07/09/22 14:50 07/09/22 15:10 07/09/22 15:30 Temperature Pulse Rate 63 61 69 Respiratory Rate Blood Pressure 113/62 125/66 129/73 Pulse Oximetry Oxygen Delivery 07/09/22 15:50 07/09/22 16:10 07/09/22 16:30 Temperature Pulse Rate 60 60 60 Respiratory Rate Blood Pressure 128/78 124/75 113/67 Pulse Oximetry Oxygen Delivery Intake/Output Intake/Output: Intake & Output 07/06/22 07/07/22 07/08/22 07/09/22 23:59 23:59 23:59 23:59 Intake Total 1505 1370 1120 Output Total 650 1100 1350 Balance 855 270 -230 Meds/Results Medications: Active Medications Generic Name Dose Route Start Last Admin Trade Name Freq PRN Reason Stop Dose Admin Acetaminophen 650 mg 07/08/22 17:40 07/09/22 07:50 Acetaminophen 325 Mg Tablet PO 650 mg Q6H PRN Administration Mild Pain (1-3) or Fever Aspirin 81 mg 07/07/22 09:00 07/09/22 07:53 Aspirin 81 Mg Enteric Tablet PO 81 mg DAILY DRAGAN Administration Atorvastatin Calcium 40 mg 07/07/22 09:00 07/09/22 07:53 Atorvastatin 40 Mg Tablet PO 40 mg DAILY DRAGAN Administration Clonidine HCl 0.2 mg 07/09/22 14:00 07/09/22 13:14 Clonidine Hcl 0.2 Mg Tablet PO 0.2 mg Q8HR DRAGAN Administration Divalproex Sodium 500 mg 07/06/22 21:15 07/09/22 07:52 Divalproex Sodium Er 500 Mg Tab.24h PO 500 mg Q12HR DRAGAN Administration Famotidine 20 mg 07/08/22 21:00 07/09/22 07:54 Famotidine 20 Mg Tablet PO 20 mg Q12HR DRAGAN Administration Dexmedetomidine HCl 400 mcg in 100 mls @ 0 mls/hr 07/07/22 16:45 07/08/22 09:37 Precedex 400 Mcg/100 Ml IV C
--- NOTE | 2022-07-09 17:10 | PC.NURSE ---
Patient returned from dialysis. 2L removed per Demi FERNANDEZ
--- NOTE | 2022-07-09 22:55 | PC.NURSE ---
0 RECEIVED PT FROM ICU. VOICES NO C/O
[2022-07-10] VITALS (7 sets, daily range): BP systolic 113–170; BP diastolic 62–86; PULSE 60–94; RESP 16–20; TEMP 36.4–36.7; O2SAT 96–99
[2022-07-10 05:29] LABS: Hematocrit 34.5 % (42.0-52.0); Hemoglobin 11.3 g/dL (14.0-18.0); Mean Corpuscular HGB Conc 32.8 g/dl (32-36); Mean Corpuscular Hemoglobin 31.8 pg (26-34); Mean Corpuscular Volume 97.2 fl (80-100); Mean Platelet Volume 10.5 fl (7.4-10.4); Platelet Count Result 213 k/mm3 (150-375); Red Blood Count 3.55 M/mm3 (4.6-6.20); Red Cell Distribution Width 12.6 % (11.5-14.5); White Blood Count 10.4 K/mm3 (4.5-10.0)
[2022-07-10 05:48] LABS: Alanine Aminotransferase 15 U/L (6-50); Albumin Level 3.5 g/dL (3.5-5.1); Alkaline Phosphatase 72 U/L (38-126); Anion Gap 8 mmol/L (8-16); Aspartate Amino Transferase 17 U/L (17-59); Bilirubin,Total 0.3 mg/dL (0.2-1.3); Blood Urea Nitrogen 28 mg/dL (9-20); Calcium 8.1 mg/dL (8.4-10.2); Carbon Dioxide 27 mmol/L (22-30); Chloride 100 mmol/L (98-107); Estimated CRCL calculation 14 ml/min; Estimated Glomerular Filt Rate 16; Glucose 96 mg/dL (65-110); Phosphorus 2.8 mg/dL (2.5-4.5); Sodium 135 mmol/L (137-145)
--- NOTE | 2022-07-10 07:16 | PM.PNNEP ---
Progress Note: A&P Assessment and Plan (1) End-stage renal disease on hemodialysis: Code(s): N18.6 - End stage renal disease; Z99.2 - Dependence on renal dialysis Status: Acute Assessment and Plan: the patient has end-stage renal disease. He has vascular disease and hypertension which probably are the cause. He dialyzes on Tuesdays and Saturdays. he is due for dialysis tomorrow. Yesterday's treatment went pretty well. He is breathing comfortably now . His chest x-ray is clear. He has no edema except in his face. He had a CT angio yesterday which does show a narrow SVC above the azygos vein. This is where his tunneled dialysis catheter is. However they did not see the lumen very well because of the phase of the contrast injection. I talked with the dialysis nurses at his clinic and they say that his facial edema started about a week before he came into the hospital. The catheter has been there for about [address] sinclair' note. It looks like he is going to get an ultrasound to include the IJ. If this shows clot then I suppose will have to anticoagulate. If not consider a CT venogram? (2) Chronic obstructive pulmonary disease: Code(s): J44.9 - Chronic obstructive pulmonary disease, unspecified Status: Acute Assessment and Plan: The patient is a heavy smoker and continues to smoke. he is getting supportive care. The CT scan did show substantial signs of COPD. He really should stop smoking. (3) Coronary artery disease: Code(s): I25.10 - Atherosclerotic heart disease of [place] coronary artery without angina pectoris Status: Acute Assessment and Plan: The patient has coronary artery disease. No activity at this point troponins are normal. no chest pain. (4) Cerebrovascular accident: Code(s): I63.9 - Cerebral infarction, unspecified Status: Acute Assessment and Plan: He has had a stroke in the past. He has posterior circulation strokes and also a narrowing in 1 of the vertebral arteries. He is on aspirin and atorvastatin. (5) Hypertensive urgency: Code(s): I16.0 - Hypertensive urgency Status: Acute Assessment and Plan: His blood pressure Is much better. Systolic ranging in the 110s and 150s. He is on Nifedipine and clonidine. (6) Dizziness: Code(s): R42 - Dizziness and giddiness Status: Acute Assessment and Plan: he has been having dizzy spells for a few days before this. He has old infarcts in the right cerebellum skyler and left thalamus. Some of the dizzy spells may be related to this. (7) Erythropoietin deficiency anemia: Code(s): D63.1 - Anemia in chronic kidney disease Status: Acute Assessment and Plan: His hemoglobin is low but not low enough for Epogen. (8) Renal osteodystrophy: Code(s): N25.0 - Renal osteodystrophy Status: Acute Assessment and Plan: Phosphorus level is normal (9) Facial edema: Code(s): R60.0 - Localized edema Status: Acute Assessment and Plan: possibly due to SVC syndrome. Evaluation underway. Subjective Date/time seen: 07/10/22 07:15 Interval history: Thuan is feeling okay today. No chest pain or shortness of breath. he still has facial edema. Exam Narrative: WDWN in NAD skin no rash or subcu nodules head ncat lungs clear bilaterally cor reg no rub or gallop abd BS+ nontender and soft ext Mild facial edema. No lower extremity edema. Objective Data Vital Signs Vital Signs: Vital Signs - 24 hr 07/09/22 16:10 07/09/22 16:30 07/09/22 16:50 Temperature Pulse Rate 60 60 60 Respiratory Rate Blood Pressure 124/75 113/67 138/78 Pulse Oximetry Oxygen Delivery 07/09/22 17:06 07/09/22 17:11 07/09/22 17:00 Temperature 36.3 C L Pulse Rate 64 68 63 Respiratory Rate 16 Blood Pressure 124/76 124/76 P
[2022-07-10] MEDS: cloNIDine HCL 0.2 MG TABLET PO ×3 (07:17→21:41)
[2022-07-10 09:24] LABS: D Dimer 2.18 ug/mL (<0.48)
[2022-07-10] MEDS: UMECLIDINIUM BROMIDE 62.5 MCG ELLIPTA 1 PUFF INHALATION (09:49)
[2022-07-10] MEDS: FLUTICASONE/SALMETEROL 230-21 MCG INHALER 1 PUFF 2 PUFF INHALATION ×2 (09:49→20:24)
[2022-07-10] MEDS: ISOSORBIDE MONONITRATE 30 MG TAB.ER.24H PO (10:12)
[2022-07-10] MEDS: levETIRAcetam 250 MG TABLET PO ×2 (10:13→21:41)
[2022-07-10] MEDS: FAMOTIDINE 20 MG TABLET PO ×2 (10:13→21:40)
[2022-07-10] MEDS: SODIUM BICARBONATE TAB 650 MG TABLET PO ×3 (10:13→17:10)
[2022-07-10] MEDS: DIVALPROEX SODIUM ER 500 MG TAB.24H PO ×2 (10:13→21:41)
[2022-07-10] MEDS: ATORVASTATIN 40 MG TABLET PO (10:13)
[2022-07-10] MEDS: ASPIRIN 81 MG ENTERIC TABLET PO (10:13)
[2022-07-10] MEDS: NIFEdipine 30 MG TAB.ER.24 90 MG PO (10:14)
[2022-07-10] MEDS: methylPREDNISolone SOD SUCC 125 MG VIAL 60 MG IV PUSH (10:14)
[2022-07-10 10:39] LABS: Glucose Point of Care 113 mg/dl (65-105)
--- NOTE | 2022-07-10 10:56 | PC.NURSE ---
07/10/22 10:40am Pt was garbling speech. Code stroke was called. Called Dr. Garay and recieved order for STAT CT scan.
--- NOTE | 2022-07-10 11:22 | PC.NURSE ---
07/10/22 10:40am Pt was garbling speech. Code stroke was called. Called Dr. Garay and recieved order for STAT CT scan.
--- NOTE | 2022-07-10 12:12 | PM.IMPN ---
Progress Note: A&P Assessment and Plan (1) Angioedema: Code(s): T78.3XXA - Angioneurotic edema, initial encounter Status: Acute Assessment and Plan: no significant edema noted appreciate surgical eval - ? IJ stenosis vs thrombus ue duplex ordered to include IJ CT scan reviewed (2) Fall: Code(s): W19.XXXA - Unspecified fall, initial encounter Status: Acute Assessment and Plan: Continue PT/OT. (3) Dizziness: Code(s): R42 - Dizziness and giddiness Status: Acute Assessment and Plan: Patient reports feeling lightheaded and dizzy for the last several days. Orthostatic vital signs were normal. Brain CT showing no acute findings. (4) End-stage renal disease on hemodialysis: Code(s): N18.6 - End stage renal disease; Z99.2 - Dependence on renal dialysis Status: Acute Assessment and Plan: Patient has HD //Fri. He had HD 07/06. Nephrology consult. Resume HD per Nephrology schedule. (5) Chronic obstructive pulmonary disease: Code(s): J44.9 - Chronic obstructive pulmonary disease, unspecified Status: Acute Assessment and Plan: No acute issues. No wheezing. Continue maintenance inhalers. (6) Hypertension: Code(s): I10 - Essential (primary) hypertension Status: Chronic Assessment and Plan: Blood pressures are better controlled. (7) Tobacco abuse: Code(s): Z72.0 - Tobacco use Status: Acute Assessment and Plan: The benefits of smoking cessation was discussed though he appeared unmotivated. He declined the need for nicotine patch. Subjective Date/time seen: 07/10/22 12:12 no new complaints did not appreciate much left chest or facial edema today Exam Narrative: AF 98.2 135/81 60 16 95% ra Gen - NARD Chest - distant but clear BS. nml RR. Right upper chest tunneled HD catheter. PM in the left upper chest CV - RRR S1/S2, tele showing no significant dysrhythmia Abd - soft NT/ND, +BS Ext - no pedal edema Psych - nml mood and affect. AOx4 but vague when asked detailed questions Skin - warm and dry Objective Data Vital Signs Vital Signs: Vital Signs - 24 hr 07/09/22 13:34 07/09/22 13:25 07/09/22 13:50 Temperature 97.4 F L Pulse Rate 65 75 133 H Respiratory Rate 16 Blood Pressure 116/67 123/67 123/90 Pulse Oximetry Oxygen Delivery 07/09/22 14:00 07/09/22 14:10 07/09/22 14:30 Temperature Pulse Rate 66 69 65 Respiratory Rate Blood Pressure 98/56 L 108/60 Pulse Oximetry Oxygen Delivery 07/09/22 14:50 07/09/22 15:10 07/09/22 15:30 Temperature Pulse Rate 63 61 69 Respiratory Rate Blood Pressure 113/62 125/66 129/73 Pulse Oximetry Oxygen Delivery 07/09/22 15:50 07/09/22 16:10 07/09/22 16:30 Temperature Pulse Rate 60 60 60 Respiratory Rate Blood Pressure 128/78 124/75 113/67 Pulse Oximetry Oxygen Delivery 07/09/22 16:50 07/09/22 17:06 07/09/22 17:11 Temperature 97.4 F L Pulse Rate 60 64 68 Respiratory Rate 16 Blood Pressure 138/78 124/76 124/76 Pulse Oximetry Oxygen Delivery 07/09/22 17:00 07/09/22 17:00 07/09/22 18:00 Temperature Pulse Rate 63 63 60 Respiratory Rate 20 Blood Pressure 139/67 Pulse Oximetry 96 Oxygen Delivery 07/09/22 20:00 07/09/22 20:00 07/09/22 20:00 Temperature 97.6 F Pulse Rate 60 60 60 Respiratory Rate 20 20 Blood Pressure 135/71 Pulse Oximetry 96 96 Oxygen Delivery Room Air 07/09/22 21:00 07/09/22 21:44 07/10/22 03:43 Temperature 97.2 F L 98.0 F Pulse Rate 58 L 60 Respiratory Rate 18 18 Blood Pressure 146/73 H 152/77 H Pulse Oximetry 98 96 98 Oxygen Delivery Room Air 07/10/22 07:56 07/10/22 09:50 07/10/22 10:38 Temperature Pulse Rate 74 Respiratory Rate 20 Blood Pressure 135/73 Pulse Oximetry 97 99 Oxygen Delivery Room Air Room Air 07/10/22 11:32 07/10/22 10:13 Temperature
[2022-07-10 16:46] LABS: Levetiracetam Keppra 7.8
[2022-07-11] VITALS (27 sets, daily range): BP systolic 108–187; BP diastolic 66–107; PULSE 60–77; RESP 16–21; TEMP 36.3–37; O2SAT 95–100
[2022-07-11 06:05] LABS: Hematocrit 34.4 % (42.0-52.0); Hemoglobin 11.8 g/dL (14.0-18.0); Mean Corpuscular HGB Conc 34.3 g/dl (32-36); Mean Corpuscular Hemoglobin 32.6 pg (26-34); Mean Platelet Volume 10.4 fl (7.4-10.4); Platelet Count Result 226 k/mm3 (150-375); Red Blood Count 3.62 M/mm3 (4.6-6.20); Red Cell Distribution Width 12.4 % (11.5-14.5); White Blood Count 10.7 K/mm3 (4.5-10.0)
[2022-07-11 06:23] LABS: Alanine Aminotransferase 15 U/L (6-50); Albumin Level 3.5 g/dL (3.5-5.1); Alkaline Phosphatase 74 U/L (38-126); Anion Gap 9 mmol/L (8-16); Aspartate Amino Transferase 18 U/L (17-59); Bilirubin,Total 0.3 mg/dL (0.2-1.3); Blood Urea Nitrogen 40 mg/dL (9-20); Calcium 8.1 mg/dL (8.4-10.2); Carbon Dioxide 27 mmol/L (22-30); Chloride 99 mmol/L (98-107); Estimated CRCL calculation 10 ml/min; Estimated Glomerular Filt Rate 11; Glucose 96 mg/dL (65-110); Magnesium 2.1 mg/dL (1.6-2.3); Phosphorus 3.4 mg/dL (2.5-4.5); Potassium 3.9 mmol/L (3.4-5.0); Sodium 135 mmol/L (137-145)
[2022-07-11] MEDS: cloNIDine HCL 0.2 MG TABLET PO ×3 (06:40→22:49)
--- NOTE | 2022-07-11 06:45 | PC.NURSE ---
DR LARSON HERE MPT WITH GARBLED SPEECH. MOVES ALL EXTREMETIES, FOLLOWING COMMANDS. DR LARSON REQUESTING CODE STROKE CALLED
--- NOTE | 2022-07-11 07:21 | PM.PNNEP ---
Progress Note: A&P Assessment and Plan (1) End-stage renal disease on hemodialysis: Code(s): N18.6 - End stage renal disease; Z99.2 - Dependence on renal dialysis Status: Acute Assessment and Plan: the patient has end-stage renal disease. He has vascular disease and hypertension which probably are the cause. He dialyzes on Tuesdays and Saturdays. he is due for dialysis today. (2) Chronic obstructive pulmonary disease: Code(s): J44.9 - Chronic obstructive pulmonary disease, unspecified Status: Acute Assessment and Plan: The patient is a heavy smoker and continues to smoke. he is getting supportive care. The CT scan did show substantial signs of COPD. He really should stop smoking. (3) Coronary artery disease: Code(s): I25.10 - Atherosclerotic heart disease of [place] coronary artery without angina pectoris Status: Acute Assessment and Plan: The patient has coronary artery disease. No activity at this point troponins are normal. no chest pain. (4) Cerebrovascular accident: Code(s): I63.9 - Cerebral infarction, unspecified Status: Acute Assessment and Plan: He has had a stroke in the past. He has posterior circulation strokes and also a narrowing in 1 of the vertebral arteries. Yesterday he had babbling speech at about noon and had a code stroke. Today he is going to have another code stroke process. It seems like exactly the same thing 2 days in a row. This is only transient. Consider TIA versus partial seizure? He is on aspirin and atorvastatin. (5) Hypertensive urgency: Code(s): I16.0 - Hypertensive urgency Status: Acute Assessment and Plan: his blood pressure is a bit higher in the last 24 hours. Systolic ranging in the 150s to 180s. He is on nifedipine and clonidine. Will start a Cardioselective beta agustina. (6) Dizziness: Code(s): R42 - Dizziness and giddiness Status: Acute Assessment and Plan: he has been having dizzy spells for a few days before this. He has old infarcts in the right cerebellum skyler and left thalamus. he has had 2 episodes of babbling speech now. All these things could be related. He is going to get an MRI today. (7) Erythropoietin deficiency anemia: Code(s): D63.1 - Anemia in chronic kidney disease Status: Acute Assessment and Plan: His hemoglobin is low but not low enough for Epogen. (8) Renal osteodystrophy: Code(s): N25.0 - Renal osteodystrophy Status: Acute Assessment and Plan: Phosphorus level is normal (9) Facial edema: Code(s): R60.0 - Localized edema Status: Acute Assessment and Plan: possibly due to SVC syndrome. Doppler is okay. I discussed with Dr. sinclair yesterday. He will get a CT venogram. Subjective Date/time seen: 07/11/22 07:21 Interval history: Thuan cooley babbling speech. accd to nurse 20 minutes ago he was fluent. he had a code stroke yesterday. ct brain no acute process. Code stroke called. MRI to be done. I checked in again 15 min later and still babbling. He just says bababa No chest pain or shortness of breath. he still has facial edema. Exam Narrative: WDWN in NAD skin no rash or subcu nodules head ncat lungs clear bilaterally cor reg no rub or gallop abd BS+ nontender and soft ext Mild facial edema. No lower extremity edema. Objective Data Vital Signs Vital Signs: Vital Signs - 24 hr 07/10/22 07:56 07/10/22 09:50 07/10/22 10:38 Temperature Pulse Rate 74 Respiratory Rate 20 Blood Pressure 135/73 Pulse Oximetry 97 99 Oxygen Delivery Room Air Room Air 07/10/22 11:32 07/10/22 10:13 07/10/22 14:46 Temperature 36.7 C Pulse Rate 94 61 Respiratory Rate 16 Blood Pressure 135/73 113/62 Pulse Oximetry 99 97 Oxygen Delivery Room Air 07/10/22 23:03 07/11/22 07
[2022-07-11] MEDS: FLUTICASONE/SALMETEROL 230-21 MCG INHALER 1 PUFF 2 PUFF INHALATION ×2 (08:05→23:18)
[2022-07-11] MEDS: UMECLIDINIUM BROMIDE 62.5 MCG ELLIPTA 1 PUFF INHALATION (08:06)
--- NOTE | 2022-07-11 11:18 | PM.IMPN ---
Progress Note: A&P Assessment and Plan (1) Angioedema: Code(s): T78.3XXA - Angioneurotic edema, initial encounter Status: Acute Assessment and Plan: no significant edema noted tdoay appreciate surgical eval - ? IJ stenosis vs thrombus ue duplex to include IJ was negative CT venogram neck and great vessels ordered (2) Fall: Code(s): W19.XXXA - Unspecified fall, initial encounter Status: Acute Assessment and Plan: Continue PT/OT. (3) Dizziness: Code(s): R42 - Dizziness and giddiness Status: Acute Assessment and Plan: Patient reports feeling lightheaded and dizzy for the last several days. Orthostatic vital signs were normal. Brain CT showing no acute findings. (4) End-stage renal disease on hemodialysis: Code(s): N18.6 - End stage renal disease; Z99.2 - Dependence on renal dialysis Status: Acute Assessment and Plan: Patient has HD //Fri. He had HD 07/06. Nephrology consult. Resume HD per Nephrology schedule. (5) Chronic obstructive pulmonary disease: Code(s): J44.9 - Chronic obstructive pulmonary disease, unspecified Status: Acute Assessment and Plan: No acute issues. No wheezing. Continue maintenance inhalers. (6) Hypertension: Code(s): I10 - Essential (primary) hypertension Status: Chronic Assessment and Plan: Blood pressures are better controlled. (7) Tobacco abuse: Code(s): Z72.0 - Tobacco use Status: Acute Assessment and Plan: The benefits of smoking cessation was discussed though he appeared unmotivated. He declined the need for nicotine patch. (8) Garbled speech: Code(s): R47.89 - Other speech disturbances Status: Acute Assessment and Plan: i do not think he has had new stroke ct negative intermittent will need to discuss w family and see about baseline - phone call placed and message delivered to son to call - awaiting return phone call ? baseline Subjective Date/time seen: 07/11/22 11:18 patient still has garbled speech. Stroke workup yesterday negative. Unsure of patient's baseline. Exam Narrative: AF 98.2 135/81 60 16 95% ra Gen - NARD Chest - distant but clear BS. nml RR. Right upper chest tunneled HD catheter. PM in the left upper chest CV - RRR S1/S2, tele showing no significant dysrhythmia Abd - soft NT/ND, +BS Ext - no pedal edema Psych - nml mood and affect. AOx4 but vague when asked detailed questions Skin - warm and dry Objective Data Vital Signs Vital Signs: Vital Signs - 24 hr 07/10/22 11:32 07/10/22 14:46 07/10/22 23:03 Temperature 98.0 F 97.6 F Pulse Rate 94 61 73 Respiratory Rate 16 20 Blood Pressure 135/73 113/62 123/81 Pulse Oximetry 99 97 98 Oxygen Delivery 07/11/22 07:08 07/10/22 16:10 07/11/22 08:07 Temperature 97.8 F Pulse Rate 63 63 Respiratory Rate 18 18 Blood Pressure 170/86 H 170/86 H Pulse Oximetry 96 96 95 Oxygen Delivery Room Air Room Air 07/11/22 08:29 07/11/22 08:47 07/11/22 09:00 Temperature 98.3 F Pulse Rate 60 60 60 Respiratory Rate 20 Blood Pressure 163/94 H 166/92 H 184/104 H Pulse Oximetry Oxygen Delivery 07/11/22 09:15 07/11/22 09:30 07/11/22 09:45 Temperature Pulse Rate 60 60 60 Respiratory Rate Blood Pressure 186/107 H 187/101 H 156/99 H Pulse Oximetry Oxygen Delivery 07/11/22 10:00 07/11/22 10:15 07/11/22 10:30 Temperature Pulse Rate 60 60 60 Respiratory Rate Blood Pressure 169/107 H 150/94 H 159/92 H Pulse Oximetry Oxygen Delivery 07/11/22 10:45 07/11/22 11:00 Temperature Pulse Rate 60 60 Respiratory Rate Blood Pressure 172/101 H 172/96 H Pulse Oximetry Oxygen Delivery Intake/Output Intake/Output: Intake & Output 07/08/22 07/09/22 07/10/22 07/11/22 23:59 23:59 23:59 23:59 Intake Total 1370 1470 1490 500 Output Total 1100 4400 800 400 Balance 270 -40
[2022-07-11] MEDS: NIFEdipine 30 MG TAB.ER.24 90 MG PO (12:51)
[2022-07-11] MEDS: ATORVASTATIN 40 MG TABLET PO (12:51)
[2022-07-11] MEDS: DIVALPROEX SODIUM ER 500 MG TAB.24H PO ×2 (12:51→20:30)
[2022-07-11] MEDS: SODIUM BICARBONATE TAB 650 MG TABLET PO ×2 (12:51→17:14)
[2022-07-11] MEDS: levETIRAcetam 250 MG TABLET PO ×2 (12:52→20:30)
[2022-07-11] MEDS: ISOSORBIDE MONONITRATE 30 MG TAB.ER.24H PO (12:52)
[2022-07-11] MEDS: ASPIRIN 81 MG ENTERIC TABLET PO (12:52)
[2022-07-11] MEDS: FAMOTIDINE 20 MG TABLET PO ×2 (12:52→20:30)
[2022-07-11] MEDS: ACETAMINOPHEN 325 MG TABLET 650 MG PO (20:27)
[2022-07-12] VITALS (10 sets, daily range): BP systolic 99–132; BP diastolic 65–87; PULSE 60–80; RESP 18–20; TEMP 36.5–36.8; O2SAT 95–96
[2022-07-12 05:29] LABS: Hematocrit 36.9 % (42.0-52.0); Hemoglobin 12.4 g/dL (14.0-18.0); Mean Corpuscular HGB Conc 33.6 g/dl (32-36); Mean Corpuscular Hemoglobin 33.1 pg (26-34); Mean Corpuscular Volume 98.4 fl (80-100); Mean Platelet Volume 10.3 fl (7.4-10.4); Platelet Count Result 225 k/mm3 (150-375); Red Blood Count 3.75 M/mm3 (4.6-6.20); Red Cell Distribution Width 12.6 % (11.5-14.5); White Blood Count 8.5 K/mm3 (4.5-10.0)
[2022-07-12 05:46] LABS: Alanine Aminotransferase 19 U/L (6-50); Albumin Level 3.4 g/dL (3.5-5.1); Alkaline Phosphatase 76 U/L (38-126); Anion Gap 9 mmol/L (8-16); Aspartate Amino Transferase 20 U/L (17-59); Bilirubin,Total 0.4 mg/dL (0.2-1.3); Blood Urea Nitrogen 23 mg/dL (9-20); Calcium 7.8 mg/dL (8.4-10.2); Carbon Dioxide 31 mmol/L (22-30); Chloride 95 mmol/L (98-107); Estimated CRCL calculation 14 ml/min; Estimated Glomerular Filt Rate 15; Glucose 91 mg/dL (65-110); Phosphorus 3.6 mg/dL (2.5-4.5); Potassium 3.6 mmol/L (3.4-5.0); Sodium 135 mmol/L (137-145)
[2022-07-12] MEDS: cloNIDine HCL 0.2 MG TABLET PO ×3 (06:11→21:12)
[2022-07-12] MEDS: SODIUM BICARBONATE TAB 650 MG TABLET PO ×3 (08:07→16:39)
[2022-07-12] MEDS: ISOSORBIDE MONONITRATE 30 MG TAB.ER.24H PO (08:07)
[2022-07-12] MEDS: DIVALPROEX SODIUM ER 500 MG TAB.24H PO ×2 (08:07→21:12)
[2022-07-12] MEDS: NIFEdipine 30 MG TAB.ER.24 90 MG PO (08:07)
[2022-07-12] MEDS: levETIRAcetam 250 MG TABLET PO ×2 (08:08→21:12)
[2022-07-12] MEDS: ATORVASTATIN 40 MG TABLET PO (08:08)
[2022-07-12] MEDS: FAMOTIDINE 20 MG TABLET PO ×2 (08:08→21:12)
[2022-07-12] MEDS: ASPIRIN 81 MG ENTERIC TABLET PO (08:08)
[2022-07-12] MEDS: UMECLIDINIUM BROMIDE 62.5 MCG ELLIPTA 1 PUFF INHALATION (08:11)
[2022-07-12] MEDS: FLUTICASONE/SALMETEROL 230-21 MCG INHALER 1 PUFF 2 PUFF INHALATION ×2 (08:11→21:20)
--- NOTE | 2022-07-12 11:05 | PM.PNNEP ---
Progress Note: A&P Assessment and Plan (1) End-stage renal disease on hemodialysis: Code(s): N18.6 - End stage renal disease; Z99.2 - Dependence on renal dialysis Status: Acute Assessment and Plan: the patient has end-stage renal disease. He has vascular disease and hypertension which probably are the cause. he had dialysis on and will get another round tomorrow if he is still here. (2) Chronic obstructive pulmonary disease: Code(s): J44.9 - Chronic obstructive pulmonary disease, unspecified Status: Acute Assessment and Plan: The patient is a heavy smoker and continues to smoke. he is getting supportive care. The CT scan did show substantial signs of COPD. He really should stop smoking. (3) Coronary artery disease: Code(s): I25.10 - Atherosclerotic heart disease of [place] coronary artery without angina pectoris Status: Acute Assessment and Plan: The patient has coronary artery disease. No chest pain. (4) Cerebrovascular accident: Code(s): I63.9 - Cerebral infarction, unspecified Status: Acute Assessment and Plan: He has had strokes in the past. He has posterior circulation strokes and also a narrowing in 1 of the vertebral arteries. Discussed with Dr. Garay. his family told him that he has babbling speech off and on at home. He cannot have an MRI because of his pacemaker. CT a of the head showed stenosis of the proximal right vertebral artery. No carotid artery stenosis. He is on aspirin (5) Hypertensive urgency: Code(s): I16.0 - Hypertensive urgency Status: Acute Assessment and Plan: his blood pressure is Better controlled in the last 24 hours. He is on nifedipine and clonidine. The beta-agustina was never started. (6) Dizziness: Code(s): R42 - Dizziness and giddiness Status: Acute Assessment and Plan: he has been having dizzy spells for a few days before this. He has old infarcts in the right cerebellum skyler and left thalamus. he has had 2 episodes of babbling speech now. All these things could be related. He is going to get an MRI today. (7) Erythropoietin deficiency anemia: Code(s): D63.1 - Anemia in chronic kidney disease Status: Acute Assessment and Plan: His hemoglobin is low but not low enough for Epogen. (8) Renal osteodystrophy: Code(s): N25.0 - Renal osteodystrophy Status: Acute Assessment and Plan: Phosphorus level is normal (9) Facial edema: Code(s): R60.0 - Localized edema Status: Acute Assessment and Plan: possibly due to SVC syndrome. Doppler is okay. I discussed with Dr. garay yesterday. He will get a CT venogram. This is ordered but not done yet. Subjective Date/time seen: 07/12/22 11:05 Interval history: Thuan has babbling speech still. It was like this all day yesterday and overnight according to nursing. He looks comfortable in bed. Exam Narrative: WDWN in NAD . skin no rash or subcu nodules head ncat Lungs clear to auscultation cor reg no rub or gallop abd BS+ nontender and soft ext Mild facial edema. No lower extremity edema. Objective Data Vital Signs Vital Signs: Vital Signs - 24 hr 07/11/22 11:15 07/11/22 11:30 07/11/22 11:45 Temperature Pulse Rate 60 60 67 Respiratory Rate Blood Pressure 164/97 H 171/96 H 154/97 H Pulse Oximetry Oxygen Delivery 07/11/22 12:00 07/11/22 12:15 07/11/22 12:23 Temperature Pulse Rate 60 60 60 Respiratory Rate Blood Pressure 148/87 H 148/92 H 158/95 H Pulse Oximetry Oxygen Delivery 07/11/22 12:24 07/11/22 12:00 07/11/22 14:15 Temperature 36.8 C Pulse Rate 60 Respiratory Rate 16 Blood Pressure 141/84 H 129/66 Pulse Oximetry Oxygen Delivery Room Air 07/11/22 14:16 07/11/22 14:15 07/11/22 14:16 Temperature 36.7 C Pulse Rate 60 Respirat
--- NOTE | 2022-07-12 11:29 | PCOTNOTE ---
Patient sleeping soundly when attempted to see for OT. Patient reports already receiving bath today and going back to bed and wanting to rest. Will continue plan of care tomorrow for OT.
--- NOTE | 2022-07-12 16:03 | PM.DS ---
DS: Admitting Diagnosis Discharge Date 07/11/22 Admitting Diagnosis angioedema and facial edema DS: Discharge Diagnosis Discharge Diagnosis (1) Angioedema: Code(s): T78.3XXA - Angioneurotic edema, initial encounter Status: Acute Assessment and Plan: no significant edema noted tdoay appreciate surgical eval - ? IJ stenosis vs thrombus ue duplex to include IJ was negative CT venogram neck and great vessels ordered (2) Fall: Code(s): W19.XXXA - Unspecified fall, initial encounter Status: Acute Assessment and Plan: Continue PT/OT. (3) Dizziness: Code(s): R42 - Dizziness and giddiness Status: Acute Assessment and Plan: Patient reports feeling lightheaded and dizzy for the last several days. Orthostatic vital signs were normal. Brain CT showing no acute findings. (4) End-stage renal disease on hemodialysis: Code(s): N18.6 - End stage renal disease; Z99.2 - Dependence on renal dialysis Status: Acute Assessment and Plan: Patient has HD //Fri. He had HD 07/06. Nephrology consult. Resume HD per Nephrology schedule. (5) Chronic obstructive pulmonary disease: Code(s): J44.9 - Chronic obstructive pulmonary disease, unspecified Status: Acute Assessment and Plan: No acute issues. No wheezing. Continue maintenance inhalers. (6) Hypertension: Code(s): I10 - Essential (primary) hypertension Status: Chronic Assessment and Plan: Blood pressures are better controlled. (7) Tobacco abuse: Code(s): Z72.0 - Tobacco use Status: Acute Assessment and Plan: The benefits of smoking cessation was discussed though he appeared unmotivated. He declined the need for nicotine patch. (8) Garbled speech: Code(s): R47.89 - Other speech disturbances Status: Acute Assessment and Plan: i do not think he has had new stroke ct negative intermittent will need to discuss w family and see about baseline - phone call placed and message delivered to son to call - awaiting return phone call ? baseline DS: Summary Hospital Course Hospital Course: Patient was admitted for facial edema and angioedema. Further evaluation by ent revealed that patient likely does not have angioedema and there was some concern for ij stenosis or thrombus, but this was not appreciated on imaging studies. When i evaluated the patient i did not apopreciate any facial edema. Patient did have a code stroke called which the workup and imaging was negative for any acute stroke. His symptoms was garbled speech. Nursing staff notified son and this is not something that is acute or new and he has had this before. Patient has no neuro deficits. He can be dc home to fu with nephroology and ent and his primary. Time Spent with Patient Time attestation: Total time spent providing and/or coordinating discharge services: Exam Narrative: Gen - NARD Chest - distant but clear BS. nml RR. Right upper chest tunneled HD catheter. PM in the left upper chest CV - RRR S1/S2, tele showing no significant dysrhythmia Abd - soft NT/ND, +BS Ext - no pedal edema Psych - nml mood and affect. AOx4 but vague when asked detailed questions Skin - warm and dry DS: Data Data Completed and Pending Labs on day of discharge: Labs from last 24 hours 07/12/22 07/12/22 05:17 05:17 WBC 8.5 RBC 3.75 L Hgb 12.4 L Hct 36.9 L MCV 98.4 MCH 33.1 MCHC 33.6 RDW 12.6 Plt Count 225 MPV 10.3 Sodium 135 L Potassium 3.6 Chloride 95 L Carbon Dioxide 31 H Anion Gap 9 BUN 23 H D Creatinine 3.90 H Estim Creat Clear Calc 14 Estimated GFR 15 L Glucose 91 Calcium 7.8 L Phosphorus 3.6 Magnesium 2.0 Total Bilirubin 0.4 AST 20 ALT 19 Alkaline Phosphatase 76 Total Protein 6.0 L Albumin 3.4 L Discharge Plan Discharge Attending physician on discharge: Kwasi Garay
[2022-07-13] VITALS (25 sets, daily range): BP systolic 100–162; BP diastolic 65–99; PULSE 60–90; RESP 16–18; TEMP 36.6–37; O2SAT 97–98
[2022-07-13 05:46] LABS: Hematocrit 35.7 % (42.0-52.0); Hemoglobin 12.2 g/dL (14.0-18.0); Mean Corpuscular HGB Conc 34.2 g/dl (32-36); Mean Corpuscular Hemoglobin 33.2 pg (26-34); Mean Platelet Volume 10.6 fl (7.4-10.4); Platelet Count Result 211 k/mm3 (150-375); Red Blood Count 3.68 M/mm3 (4.6-6.20); Red Cell Distribution Width 12.5 % (11.5-14.5); White Blood Count 8.6 K/mm3 (4.5-10.0)
[2022-07-13 05:58] LABS: Alanine Aminotransferase 18 U/L (6-50); Albumin Level 3.4 g/dL (3.5-5.1); Alkaline Phosphatase 73 U/L (38-126); Anion Gap 14 mmol/L (8-16); Aspartate Amino Transferase 17 U/L (17-59); Bilirubin,Total 0.3 mg/dL (0.2-1.3); Blood Urea Nitrogen 39 mg/dL (9-20); Calcium 7.9 mg/dL (8.4-10.2); Carbon Dioxide 27 mmol/L (22-30); Chloride 95 mmol/L (98-107); Estimated CRCL calculation 10 ml/min; Estimated Glomerular Filt Rate 12; Glucose 102 mg/dL (65-110); Magnesium 1.9 mg/dL (1.6-2.3); Phosphorus 3.9 mg/dL (2.5-4.5); Potassium 3.6 mmol/L (3.4-5.0); Sodium 136 mmol/L (137-145)
[2022-07-13] MEDS: cloNIDine HCL 0.2 MG TABLET PO (07:25)
[2022-07-13] MEDS: ISOSORBIDE MONONITRATE 30 MG TAB.ER.24H PO (08:09)
[2022-07-13] MEDS: SODIUM BICARBONATE TAB 650 MG TABLET PO ×3 (08:09→16:47)
[2022-07-13] MEDS: FAMOTIDINE 20 MG TABLET PO (08:10)
[2022-07-13] MEDS: ATORVASTATIN 40 MG TABLET PO (08:10)
--- NOTE | 2022-07-13 08:10 | PC.NURSE ---
Report called to Abdiaziz FERNANDEZprofiler operator nurse.
[2022-07-13] MEDS: DIVALPROEX SODIUM ER 500 MG TAB.24H PO (08:11)
--- NOTE | 2022-07-13 08:20 | PC.NURSE ---
To Dialysis via bed.
--- NOTE | 2022-07-13 10:24 | PM.DS ---
DS: Admitting Diagnosis Discharge Date July 13, 2022 Admitting Diagnosis dizziness DS: Discharge Diagnosis Discharge Diagnosis (1) Angioedema: Code(s): T78.3XXA - Angioneurotic edema, initial encounter Status: Acute Assessment and Plan: no significant edema noted tdoay appreciate surgical eval - ? IJ stenosis vs thrombus ue duplex to include IJ was negative CT venogram neck and great vessels ordered (2) Fall: Code(s): W19.XXXA - Unspecified fall, initial encounter Status: Acute Assessment and Plan: Continue PT/OT. (3) Dizziness: Code(s): R42 - Dizziness and giddiness Status: Acute Assessment and Plan: Patient reports feeling lightheaded and dizzy for the last several days. Orthostatic vital signs were normal. Brain CT showing no acute findings. (4) End-stage renal disease on hemodialysis: Code(s): N18.6 - End stage renal disease; Z99.2 - Dependence on renal dialysis Status: Acute Assessment and Plan: Patient has HD //Fri. He had HD 07/06. Nephrology consult. Resume HD per Nephrology schedule. (5) Chronic obstructive pulmonary disease: Code(s): J44.9 - Chronic obstructive pulmonary disease, unspecified Status: Acute Assessment and Plan: No acute issues. No wheezing. Continue maintenance inhalers. (6) Hypertension: Code(s): I10 - Essential (primary) hypertension Status: Chronic Assessment and Plan: Blood pressures are better controlled. (7) Tobacco abuse: Code(s): Z72.0 - Tobacco use Status: Acute Assessment and Plan: The benefits of smoking cessation was discussed though he appeared unmotivated. He declined the need for nicotine patch. (8) Garbled speech: Code(s): R47.89 - Other speech disturbances Status: Acute Assessment and Plan: i do not think he has had new stroke ct negative intermittent will need to discuss w family and see about baseline - phone call placed and message delivered to son to call - awaiting return phone call ? baseline DS: Summary Hospital Course Hospital Course: Patient was admitted for facial edema and angioedema. Further evaluation by ent revealed that patient likely does not have angioedema and there was some concern for ij stenosis or thrombus, but this was not appreciated on imaging studies. When i evaluated the patient i did not apopreciate any facial edema. Patient did have a code stroke called which the workup and imaging was negative for any acute stroke. His symptoms was garbled speech. Nursing staff notified son and this is not something that is acute or new and he has had this before. Patient has no neuro deficits. He can be dc home to fu with nephroology and ent and his primary. Time Spent with Patient Time attestation: Total time spent providing and/or coordinating discharge services: Exam Narrative: Gen - NARD Chest - distant but clear BS. nml RR. Right upper chest tunneled HD catheter. PM in the left upper chest CV - RRR S1/S2, tele showing no significant dysrhythmia Abd - soft NT/ND, +BS Ext - no pedal edema Psych - nml mood and affect. AOx4 but vague when asked detailed questions Skin - warm and dry DS: Data Data Completed and Pending Labs on day of discharge: Labs from last 24 hours 07/13/22 07/13/22 05:15 05:15 WBC 8.6 RBC 3.68 L Hgb 12.2 L Hct 35.7 L MCV 97.0 MCH 33.2 MCHC 34.2 RDW 12.5 Plt Count 211 MPV 10.6 H Sodium 136 L Potassium 3.6 Chloride 95 L Carbon Dioxide 27 Anion Gap 14 BUN 39 H D Creatinine 5.00 H Estim Creat Clear Calc 10 Estimated GFR 12 L Glucose 102 Calcium 7.9 L Phosphorus 3.9 Magnesium 1.9 Total Bilirubin 0.3 AST 17 ALT 18 Alkaline Phosphatase 73 Total Protein 6.0 L Albumin 3.4 L Discharge Plan Discharge Attending physician on discharge: Kwasi Garay
--- NOTE | 2022-07-13 10:42 | PM.PNNEP ---
Progress Note: A&P Assessment and Plan (1) End-stage renal disease on hemodialysis: Code(s): N18.6 - End stage renal disease; Z99.2 - Dependence on renal dialysis Status: Acute Assessment and Plan: the patient has end-stage renal disease. He has vascular disease and hypertension which probably are the cause. his dialysis is underway (2) Chronic obstructive pulmonary disease: Code(s): J44.9 - Chronic obstructive pulmonary disease, unspecified Status: Acute Assessment and Plan: The patient is a heavy smoker and continues to smoke. he is getting supportive care. The CT scan did show substantial signs of COPD. hopefully he will be able to stop smoking for this reason and also because of all of his strokes. (3) Coronary artery disease: Code(s): I25.10 - Atherosclerotic heart disease of [place] coronary artery without angina pectoris Status: Acute Assessment and Plan: The patient has coronary artery disease. No chest pain. (4) Cerebrovascular accident: Code(s): I63.9 - Cerebral infarction, unspecified Status: Acute Assessment and Plan: He has had strokes in the past. He has posterior circulation strokes and also a narrowing in 1 of the vertebral arteries. He is on aspirin (5) Hypertensive urgency: Code(s): I16.0 - Hypertensive urgency Status: Acute Assessment and Plan: Blood pressure is under good control (6) Dizziness: Code(s): R42 - Dizziness and giddiness Status: Acute Assessment and Plan: he has been having dizzy spells for a few days before this. He has old infarcts in the right cerebellum skyler and left thalamus. MRI was unable to be done because of his pacemaker (7) Erythropoietin deficiency anemia: Code(s): D63.1 - Anemia in chronic kidney disease Status: Acute Assessment and Plan: His hemoglobin is low but not low enough for Epogen. (8) Renal osteodystrophy: Code(s): N25.0 - Renal osteodystrophy Status: Acute Assessment and Plan: Phosphorus level is normal (9) Facial edema: Code(s): R60.0 - Localized edema Status: Acute Assessment and Plan: possibly due to SVC syndrome. Doppler is okay. I discussed with Dr. sinclair yesterday. He will get a CT venogram. This is ordered but not done yet. Subjective Date/time seen: 07/13/22 10:42 Interval history: Thuan has babbling speech still. the patient is on dialysis and tolerating it well. His blood pressure is under good control. He was seen at 9:35 a.m. Exam Narrative: WDWN in NAD . skin no rash or subcu nodules head ncat Lungs clear to auscultation cor reg no rub or gallop abd BS+ nontender and soft ext Mild facial edema. No lower extremity edema. Objective Data Vital Signs Vital Signs: Vital Signs - 24 hr 07/12/22 13:51 07/12/22 20:51 07/12/22 20:54 Temperature 36.8 C 36.5 C 36.6 C Pulse Rate 60 63 69 Respiratory Rate 20 18 18 Blood Pressure 108/65 131/86 132/86 Pulse Oximetry 95 95 96 Oxygen Delivery 07/12/22 20:57 07/12/22 21:34 07/12/22 20:00 Temperature 36.6 C 36.5 C Pulse Rate 80 63 Respiratory Rate 18 18 Blood Pressure 111/79 131/86 Pulse Oximetry 95 95 Oxygen Delivery Room Air 07/12/22 21:20 07/12/22 21:28 07/13/22 04:59 Temperature 36.6 C Pulse Rate 69 70 72 Respiratory Rate 20 18 17 Blood Pressure 147/96 H Pulse Oximetry 97 Oxygen Delivery 07/13/22 07:55 07/13/22 08:30 07/13/22 08:34 Temperature 36.6 C Pulse Rate 67 60 Respiratory Rate 18 18 Blood Pressure 146/92 H 147/89 H Pulse Oximetry 98 Oxygen Delivery Room Air 07/13/22 08:45 07/13/22 09:00 07/13/22 09:15 Temperature Pulse Rate 60 60 64 Respiratory Rate Blood Pressure 136/85 137/91 H 162/99 H Pulse Oximetry Oxygen Delivery 07/13/22 09:30 07/13/22 09:45 07/13/22 10:00 Tem[place]
--- NOTE | 2022-07-13 12:18 | PC.NURSE ---
Report called from Abdiaziz FERNANDEZlamination technician nurse.
--- NOTE | 2022-07-13 12:35 | PC.NURSE ---
Returned from Dialysis via bed.
[2022-07-13] MEDS: ASPIRIN 81 MG ENTERIC TABLET PO (12:49)
[2022-07-13] MEDS: levETIRAcetam 250 MG TABLET PO (12:49)
== END 2022-07-13 18:05 | disposition home health service (06) | DRG 199 ==
LOC: ANHED 17:23 → ANH3MEDSUR 18:00 → ANHICU 07-07 03:08 → ANH2MED 07-10 14:00 → ANHICU 07-15 10:53
PROVIDERS: Internal Medicine; Internal Medicine Nephrology; Physician Assistant; Admitting Provider Student in an Organized Health Care Education/Training Program; Emergency Provider Emergency Medicine; Visit Provider Chiropractor
DX: I16.0 Hypertensive urgency (principal); N18.6 End stage renal disease; S09.90XA Unspecified injury of head, initial encounter; I12.0 Hypertensive chronic kidney disease with stage 5 chronic kidney disease or end stage renal disease; R47.89 Other speech disturbances; R42 Dizziness and giddiness; R47.1 Dysarthria and anarthria; R60.0 Localized edema; R41.0 Disorientation, unspecified; D63.1 Anemia in chronic kidney disease; N25.0 Renal osteodystrophy; J44.9 Chronic obstructive pulmonary disease, unspecified; W07.XXXA Fall from chair, initial encounter; F17.210 Nicotine dependence, cigarettes, uncomplicated; Z99.2 Dependence on renal dialysis; I25.10 Atherosclerotic heart disease of native coronary artery without angina pectoris; I73.9 Peripheral vascular disease, unspecified; Z79.82 Long term (current) use of aspirin; Z79.899 Other long term (current) drug therapy; Z86.16 Personal history of COVID-19; Z86.73 Personal history of transient ischemic attack (TIA), and cerebral infarction without residual deficits; Z95.0 Presence of cardiac pacemaker; Z95.5 Presence of coronary angioplasty implant and graft; Z95.828 Presence of other vascular implants and grafts
CPT/HCPCS: 36415; 70450; 70487; 70490; 70496; 70498; 71045; 72072; 72100; 72125; 80048; 80053; 80164; 80177; 81001; 82948; 83735; 84100; 84443; 84484; 85025; 85027; 85380; 85610; 85730; 87340; 92610; 93005; 93880; 93971; 94640; 96365; 96366; 96367; 96372; 96374; 96375; 96376; 97110; 97161; 97165; 97530; 99285; A9270; G0257; G0378; G0379; J0131; J0171; J0360; J1200; J1644; J2930; J7030; Q9967

== ENCOUNTER 2022-07-26 18:41 | Inpatient (IN) | payer OTHER, SELFPAY ==
[2022-07-26] VITALS (19 sets, daily range): BP systolic 165–190; BP diastolic 82–108; PULSE 75–111; RESP 17–28; TEMP 36.8–36.9; O2SAT 93–100; BMI 17.7
--- NOTE | ~2022-07-26 | XR_ITS ---
XR chest 1V portable DATE: 07/26/2022 19:24 INDICATION: Shortness of breath. History of COPD, hypertension, coronary artery stents TECHNIQUE: Portable upright AP views on 07/2022 at 1911 hours COMPARISON: 07/07/2022 portable AP chest FINDINGS: Bilateral hyperinflation consistent with COPD. No pulmonary infiltrate or consolidation, pl eural effusion or pulmonary vascular congestion or pneumothorax. Left-sided dual-lead pacemaker device with leads overlying right atrial and right ventricle. There is aortic calcification, ectasia and mild tortuosity. Dual lumen right internal jugular central venous catheter, the tip overlying the superior vena cava. Diffuse osteopenia. IMPRESSION: COPD; no active pulmonary disease Left dual-lead pacemaker Right internal jugular catheter in superior vena cava No significant change since 07/07/2022 Reviewed, dictated and finalized at location A.
--- NOTE | ~2022-07-26 | CT_ITS ---
EXAMINATION: CT brain wo con DATE: 07/29/2022 00:47 INDICATION: Dysphagia. Stroke. TECHNIQUE: Computed tomography (CT) of the head was performed without intravenous contrast. The mA wa s adjusted according to patient size. Iterative reconstruction technique was employed. The dose-lengt h product was 756.67 mGy-cm. COMPARISON: Head CT 07/10/2022 FINDINGS: There are small old infarcts in the left thalamus, skyler, and right cerebellum. There are sc attered areas of low attenuation in the cerebral white matter, which is within normal limits for the patient's age. There is no intracranial hemorrhage, acute infarction, or abnormal intracranial mass l esion. The ventricles are normal in size. There is mild mucosal thickening in the paranasal sinuses. The orbits are normal. The mastoid air cells are normal. IMPRESSION: 1. 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 Reviewed, dictated and finalized at location A. ROPATHIC ONCOLOGY PROVIDER
--- NOTE | ~2022-07-26 | CT_ITS ---
EXAMINATION: CT abdomen pelvis wo con DATE: 07/29/2022 09:54 INDICATION: Abdominal pain. TECHNIQUE: Computed tomography (CT) of the abdomen and pelvis was performed without intravenous contr ast. Automated exposure control and iterative reconstruction technique were employed. The dose-length product was 184.20 mGy-cm. COMPARISON: CT abdomen and pelvis 05/04/2022 FINDINGS: The visualized portions of the lung bases demonstrate emphysema and mild atelectasis. No pl eural effusion. The heart size is normal. There are pacer wires in right atrium and right ventricle. No pericardial effusion. The liver, gallbladder, pancreas, and right adrenal gland are normal. There is a 1.8 cm mass in left adrenal gland measuring low-attenuation, consistent with an adenoma. Calcifi cations in the spleen are consistent with old granulomatous disease. There is mild atrophy of the kid neys. There is diverticulosis of the colon without evidence of diverticulitis. There is a large volum e of stool in the colon. The appendix is not visualized. There are no pathologically enlarged lymph n odes. There is no free intraperitoneal fluid. There is a stent in right common and external iliac art eries. There is severe lumbar spondylosis. IMPRESSION: 1. No etiology for the patient's symptoms. Reviewed, dictated and finalized at location A. CE TECHNOLOGY INSTRUCTOR
--- NOTE | 2022-07-26 18:44 | ECG_ITS ---
Measurements Intervals [place] Rate: 106 P: DE: 0 QRS: 78 QRSD: 91 T: 81 QT: 359 QTc: 478 Interpretive Statements SINUS TACHYCARDIA BORDERLINE ST-T WAVE ABNORMALITY- LAT/HIGH LAT LEADS ABNORMAL ECG COMPARED TO ECG 07/06/2022 12:37:01 HEART RATE HAS INCREASED Electronically Signed On 07-26-2022 21:31:02 CDT by Varun Ashraf D.O.
--- NOTE | 2022-07-26 19:25 | ED.SOB ---
HPI - SOB/Dyspnea General Chief Complaint: Shortness of Breath/Dyspnea Stated Complaint: SOB/CHEST PAIN Time Seen by Provider: 07/26/22 19:01 Source: EMS, RN notes reviewed and old records reviewed Mode of arrival: EMS Limitations: clinical condition History of Present Illness HPI Narrative: This is a 66 year old male with history of COPD, ESRD on dialysis who presents for evaluation of shortness of breath. Patient has come from home via EMS for cough and tachypnea. PAtient is unable to state how long he has had cough or sob. Unable to give history either due to dyspnea . Old records also show history of garbled speech. MD elicited complaint: shortness of breath Related Data Home Medications Medication Instructions Recorded Confirmed aspirin 81 mg tablet,delayed 81 mg PO DAILY 03/19/22 07/27/22 release atorvastatin 40 mg tablet 40 mg PO DAILY 03/19/22 07/27/22 divalproex 500 mg tablet,extended 500 mg PO BID 03/19/22 07/27/22 release 24 hr famotidine 20 mg tablet 20 mg PO HS 03/19/22 07/27/22 nifedipine 90 mg tablet,extended 90 mg PO DAILY 03/19/22 07/27/22 release oxybutynin chloride 10 mg 10 mg PO DAILY 03/19/22 07/27/22 tablet,extended release 24 hr sodium bicarbonate 650 mg tablet 650 mg PO TID 03/19/22 07/27/22 umeclidinium 62.5 mcg/actuation 1 inh inhalation DAILY 03/24/22 07/27/22 blister powder for inhalation (Incruse Ellipta) fluticasone 500 mcg-salmeterol 50 1 inh inhalation BID 04/24/22 07/27/22 mcg/dose blistr powdr for inhalation (Advair Diskus) isosorbide mononitrate 30 mg 30 mg PO DAILY 05/04/22 07/27/22 tablet,extended release 24 hr Allergies Allergy/AdvReac Type Severity Reaction Status Date / Time No Known Allergies Allergy Verified 07/26/22 23:40 Review of Systems Review of Systems: ROS unobtainable: Yes unobtainable due to medical condition PMFSH Past Medical History Medical History Cerebrovascular accident Chronic obstructive pulmonary disease Coronary artery disease COVID-19 (02/2022) End-stage renal disease on hemodialysis Friday, , Friday. Erythropoietin deficiency anemia Facial edema Hypertension Peripheral vascular disease Renal osteodystrophy Seizure-like activity Normal EEG in April 2022 though patient is on levetiracetam. Tobacco abuse Surgical History Surgical History History of percutaneous coronary intervention Iliac stent. Cardiac stents. History of permanent cardiac pacemaker placement Family History Family History Father Cancer of lung Mother Heart failure Social History Social History Social History: Healthcare power of patent attorney: Von Donahue, son. Code status: Full code. Smoking packs per day: 2 Smoking cigarettes per day: 40.0 Years smoked: 40 Smoking pack-years: 80.00 Smoking status: Current every day smoker Tobacco type: cigarettes Second hand tobacco smoke exposure: No Alcohol intake: never Substance use: never Substance use type: does not use Has the Lack of Transportation Kept You From Medical Appointments or From Getting Medications?: No Within the Past 12 Months, Were You Worried Whether Your Food Would Run Out Before You Got Money to Buy More?: Never True What is Your Housing Situation Today?: I Have Housing Are You Worried That in the Next 2 Months, You May Not Have Your Own Housing to Live In?: No Do You Have Trouble Paying Your Heating Or Electricity Bill?: No Do You Have Trouble Paying For Medicines?: No Are You Currently Unemployed and Looking for Work?: No Highest Level of Education Completed: Grade School Do You Have Trouble With Childcare or the Care of a Family Member?: No Additional living arrangements comments: The patient lives in [place].
[2022-07-26] MEDS: ALBUTEROL SULFATE NEB 2.5 MG/3 ML INH 10 MG INHALATION (19:39)
[2022-07-26] MEDS: IPRATROPIUM BR 0.02% INH SOLN 0.5 MG/2.5 ML VIAL 1 MG INHALATION (19:39)
[2022-07-26 19:43] LABS: Basophils Absolute Auto 0.1 K/mm3 (0.0-0.1); Eosinophils Absolute Auto 0.5 K/mm3 (0-0.3); Eosinophils Percent Auto 5.1 % (0-4.4); Hematocrit 35.9 % (42.0-52.0); Immature Granulocyte Absolute 0.03 K/mm3 (0.00-0.031); Immature Granulocyte Percent A 0.3 % (0-0.5); Lymphocytes Absolute Auto 2.38 K/mm3 (0.9-3.2); Lymphocytes Percent Auto 23.2 % (18.3-44.2); Mean Corpuscular HGB Conc 33.4 g/dl (32-36); Mean Corpuscular Hemoglobin 32.2 pg (26-34); Mean Corpuscular Volume 96.2 fl (80-100); Mean Platelet Volume 10.2 fl (7.4-10.4); Monocytes Absolute Auto 0.7 K/mm3 (0.1-0.6); Monocytes Percent Auto 7.1 % (2.6-8.5); Neutrophils Absolute Auto 6.5 K/mm3 (1.3-6.7); Neutrophils Percent Auto 63.3 % (45.5-73.1); Platelet Count Result 272 k/mm3 (150-375); Red Blood Count 3.73 M/mm3 (4.6-6.20); Red Cell Distribution Width 12.7 % (11.5-14.5); White Blood Count 10.3 K/mm3 (4.5-10.0)
[2022-07-26 19:50] LABS: Alanine Aminotransferase 19 U/L (6-50); Albumin Level 4.3 g/dL (3.5-5.1); Alkaline Phosphatase 94 U/L (38-126); Anion Gap 16 mmol/L (8-16); Aspartate Amino Transferase 24 U/L (17-59); Bilirubin,Total 0.2 mg/dL (0.2-1.3); Blood Urea Nitrogen 27 mg/dL (9-20); Calcium 8.3 mg/dL (8.4-10.2); Carbon Dioxide 30 mmol/L (22-30); Chloride 97 mmol/L (98-107); Estimated CRCL calculation 11 ml/min; Estimated Glomerular Filt Rate 11; Glucose 94 mg/dL (65-110); Potassium 4.1 mmol/L (3.4-5.0); Sodium 143 mmol/L (137-145)
[2022-07-26 19:52] LABS: Prothrombin Time 13.1 Seconds (11.1-14.7)
[2022-07-26 19:53] LABS: Base Excess ABG 4.8 mEq/l (+/-2.0); Fractional Inspired Oxygen 21 %; Oxygen Content ABG 17.9 %vol (16.0-22.0); Oxygen Saturation ABG 99.5 % (95.0-100.0); PCO2 ABG 46.9 mmHg (35.0-45.0); PO2 ABG 238.4 mmHg (80.0-100.0); Total Hemoglobin 12.6 g/dL (12.0-18.0); pH ABG 7.424 (7.350-7.450)
[2022-07-26 19:53] LABS: Partial Thromboplastin Time 27.7 SECONDS (22.3-36.8)
[2022-07-26 19:56] LABS: Device ROOM AIR; Site Drawn LEFT RADIAL
[2022-07-26 20:22] LABS: NT Pro B Type Natriuretic Pept 1910 pg/mL (5-100); Troponin I 0.047 ng/mL (0.000-0.034)
[2022-07-26 20:47] LABS: Influenza A QL RT-PCR Negative (Negative); Influenza B QL RT-PCR Negative (Negative); SARS-CoV-2 RNA PCR Negative
[2022-07-26] MEDS: methylPREDNISolone SOD SUCC 125 MG VIAL IV PUSH (22:17)
[2022-07-26] MEDS: NITROGLYCERIN OINTMENT 1 INCH DOSE TRANSDERM (22:17)
--- NOTE | 2022-07-26 22:59 | PC.NURSE ---
This RN tried to give report and the nurse stated she will have to call this RN back
--- NOTE | 2022-07-26 23:11 | PM.IMHP ---
H&P: HPI History of Present Illness Date/Time: 07/26/22 23:11 Chief Complaint: SHORTNESS OF BREATH Narrative: This is a 66-year-old male with past medical history significant for end-stage renal disease on hemodialysis, hypertension, coronary artery disease, stroke, tobacco dependence, pacemaker. Patient presented to the emergency room due to cough and shortness of breath patient is a very poor historian and cannot really give any history. Preliminary workup was significant for a chest x-ray was reported as: IMPRESSION: COPD; no active pulmonary disease Left dual-lead pacemaker Right internal jugular catheter in superior vena cava No significant change since 07/07/2022? Review of Systems Review of Systems: presents to emergency room complaining of cough with shortness of breath PMFSH Past Medical History Medical History Cerebrovascular accident Chronic obstructive pulmonary disease Coronary artery disease COVID-19 (02/2022) End-stage renal disease on hemodialysis Friday, , Friday. Erythropoietin deficiency anemia Facial edema Hypertension Peripheral vascular disease Renal osteodystrophy Seizure-like activity Normal EEG in April 2022 though patient is on levetiracetam. Tobacco abuse Surgical History Surgical History History of percutaneous coronary intervention Iliac stent. Cardiac stents. History of permanent cardiac pacemaker placement Family History Family History Father Cancer of lung Mother Heart failure Social History Social History Social History: Healthcare power of laborer stores: Von Donahue, son. Code status: Full code. Smoking packs per day: 2 Smoking cigarettes per day: 40.0 Years smoked: 40 Smoking pack-years: 80.00 Smoking status: Current every day smoker Tobacco type: cigarettes Second hand tobacco smoke exposure: No Alcohol intake: never Substance use: never Substance use type: does not use Has the Lack of Transportation Kept You From Medical Appointments or From Getting Medications?: No Within the Past 12 Months, Were You Worried Whether Your Food Would Run Out Before You Got Money to Buy More?: Never True What is Your Housing Situation Today?: I Have Housing Are You Worried That in the Next 2 Months, You May Not Have Your Own Housing to Live In?: No Do You Have Trouble Paying Your Heating Or Electricity Bill?: No Do You Have Trouble Paying For Medicines?: No Are You Currently Unemployed and Looking for Work?: No Highest Level of Education Completed: Grade School Do You Have Trouble With Childcare or the Care of a Family Member?: No Additional living arrangements comments: The patient lives in [place]. His son Von lives at home with him. Spiritual care concerns: No Meds Home Medications and Allergies Home Medications Medication Instructions Recorded Confirmed Type aspirin 81 mg tablet,delayed 81 mg PO DAILY 03/19/22 07/27/22 History release atorvastatin 40 mg tablet 40 mg PO DAILY 03/19/22 07/27/22 History divalproex 500 mg tablet,extended 500 mg PO BID 03/19/22 07/27/22 History release 24 hr famotidine 20 mg tablet 20 mg PO HS 03/19/22 07/27/22 History nifedipine 90 mg tablet,extended 90 mg PO DAILY 03/19/22 07/27/22 History release oxybutynin chloride 10 mg 10 mg PO DAILY 03/19/22 07/27/22 History tablet,extended release 24 hr sodium bicarbonate 650 mg tablet 650 mg PO TID 03/19/22 07/27/22 History umeclidinium 62.5 mcg/actuation 1 inh inhalation DAILY 03/24/22 07/27/22 History blister powder for inhalation (Incruse Ellipta) fluticasone 500 mcg-salmeterol 50 1 inh inhalation BID 04/24/22 07/27/22 History mcg/dose blistr powdr for inhalation (Advair Diskus) isosorbide m
[2022-07-27] VITALS (17 sets, daily range): BP systolic 147–193; BP diastolic 66–111; PULSE 63–101; RESP 16–28; TEMP 36.2–36.9; O2SAT 94–100; BMI 18.3
--- NOTE | 2022-07-27 00:25 | ADMGEN ---
This patient, Sachin Donahue, was admitted to IMU Room 204-01. Patient/family oriented to hospital policies and general routines including ID bracelet, bed and alarms, visiting hours, pain management, procedures, bathroom and other care routines, personal items, smoking policy, room service/diet, and visiting hours. Information on how to activate the Rapid Response Team has been discussed. Patient/Family are encouraged to report perceived risks to care and to ask questions if they do not understand what they are told or what they should do. Patient came upstairs at 2159, looks disheveled, no complaint of pain, discomfort or Shortness of Breath. Patient is in bed relaxing.
[2022-07-27] MEDS: methylPREDNISolone SOD SUCC 125 MG VIAL 60 MG IV PUSH ×2 (03:07→08:31)
[2022-07-27] MEDS: ALBUTEROL SULFATE NEB 2.5 MG/3 ML INH 5 MG INHALATION ×4 (03:57→20:23)
[2022-07-27] MEDS: IPRATROPIUM BR 0.02% INH SOLN 0.5 MG/2.5 ML VIAL INHALATION ×4 (03:57→20:23)
[2022-07-27 04:21] LABS: Troponin I 0.055 ng/mL (0.000-0.034)
[2022-07-27 05:38] LABS: Basophils Percent Auto 0.5 % (0.2-1.2); Hematocrit 37.3 % (42.0-52.0); Hemoglobin 12.3 g/dL (14.0-18.0); Immature Granulocyte Absolute 0.01 K/mm3 (0.00-0.031); Immature Granulocyte Percent A 0.2 % (0-0.5); Lymphocytes Absolute Auto 0.39 K/mm3 (0.9-3.2); Lymphocytes Percent Auto 6.4 % (18.3-44.2); Mean Corpuscular Hemoglobin 32.8 pg (26-34); Mean Corpuscular Volume 99.5 fl (80-100); Mean Platelet Volume 10.1 fl (7.4-10.4); Monocytes Percent Auto 0.3 % (2.6-8.5); Neutrophils Absolute Auto 5.7 K/mm3 (1.3-6.7); Neutrophils Percent Auto 92.6 % (45.5-73.1); Platelet Count Result 228 k/mm3 (150-375); Red Blood Count 3.75 M/mm3 (4.6-6.20); Red Cell Distribution Width 12.6 % (11.5-14.5); White Blood Count 6.1 K/mm3 (4.5-10.0)
[2022-07-27 06:05] LABS: Albumin Level 4.5 g/dL (3.5-5.1); Alkaline Phosphatase 93 U/L (38-126); Anion Gap 19 mmol/L (8-16); Aspartate Amino Transferase 28 U/L (17-59); Bilirubin,Total 0.4 mg/dL (0.2-1.3); Blood Urea Nitrogen 30 mg/dL (9-20); Calcium 8.5 mg/dL (8.4-10.2); Carbon Dioxide 23 mmol/L (22-30); Chloride 96 mmol/L (98-107); Estimated CRCL calculation 9 ml/min; Estimated Glomerular Filt Rate 11; Glucose 237 mg/dL (65-110); Potassium 4.1 mmol/L (3.4-5.0); Sodium 138 mmol/L (137-145)
[2022-07-27 06:16] LABS: Alanine Aminotransferase 33 U/L (6-50); Troponin I 0.057 ng/mL (0.000-0.034)
[2022-07-27] MEDS: traMADol HCL (*CRX) 50 MG TABLET PO (06:48)
[2022-07-27] MEDS: FLUTICASONE/SALMETEROL 230-21 MCG INHALER 1 PUFF 2 PUFF INHALATION (07:46)
[2022-07-27 08:16] LABS: Glucose Point of Care 254 mg/dl (65-105)
[2022-07-27] MEDS: ASPIRIN 81 MG ENTERIC TABLET PO (08:30)
[2022-07-27] MEDS: ISOSORBIDE MONONITRATE 30 MG TAB.ER.24H PO (08:30)
[2022-07-27] MEDS: ATORVASTATIN 40 MG TABLET PO (08:30)
[2022-07-27] MEDS: NIFEdipine 30 MG TAB.ER.24 90 MG PO (08:30)
[2022-07-27] MEDS: DIVALPROEX SODIUM ER 500 MG TAB.24H PO ×2 (08:30→17:09)
[2022-07-27] MEDS: lisinopriL 20 MG TABLET 40 MG PO (08:31)
[2022-07-27] MEDS: levETIRAcetam 250 MG TABLET PO ×2 (08:31→20:49)
[2022-07-27] MEDS: SODIUM BICARBONATE TAB 650 MG TABLET PO ×3 (08:31→17:10)
--- NOTE | 2022-07-27 11:12 | PM.CNNEP ---
Assessment and Plan Assessment and plan (1) End-stage renal disease on hemodialysis: Code(s): N18.6 - End stage renal disease; Z99.2 - Dependence on renal dialysis Status: Acute Assessment and Plan: the patient has end-stage renal disease on dialysis 3 times a week. He says that he does not want to do dialysis today. He has the headache and belly pain and feels like it is going to get worse. This is what happened on as well. I told then that he does need his dialysis 3 times a week to stay as healthy as he can. We discussed this for a while but the patient still refused. I told him we we would be ready for him at about 1 or so so that if he changed his mind he should let us know. His electrolytes are okay and his volume status looks okay. (2) Shortness of breath: Code(s): R06.02 - Shortness of breath Status: Acute Assessment and Plan: The patient has shortness of breath. This sounds like a COPD exacerbation. Chest x-ray does not show fluid. (3) Hypertension: Code(s): I10 - Essential (primary) hypertension Status: Acute Assessment and Plan: The patient has hypertension. His blood pressure is quite high. He is prescribed lisinopril, nifedipine. His blood pressure was very well controlled when he left the hospital last time. I wonder if he is taking his medications. Will restart his outpatient meds. (4) Renal osteodystrophy: Code(s): N25.0 - Renal osteodystrophy Status: Acute Assessment and Plan: Will check a phosphorus level in the mor (5) Erythropoietin deficiency anemia: Code(s): D63.1 - Anemia in chronic kidney disease Status: Acute Assessment and Plan: hemoglobin level is good. his COPD probably keeps the hemoglobin high. (6) Tobacco abuse: Code(s): Z72.0 - Tobacco use Status: Acute Assessment and Plan: I encouraged him to stop smoking. (7) Coronary artery disease: Code(s): I25.10 - Atherosclerotic heart disease of [place] coronary artery without angina pectoris Status: Acute Assessment and Plan: No chest pain. History of Present Illness Reason for Consult Consult date: 07/27/22 Chief Complaint Chief complaint: COPD exacerb,HTN urgency,dialysis,elevated troponi History of Present Illness Narrative: Sachin is a very pleasant 66-year-old gentleman who has multiple medical problems including COPD, current smoker, coronary disease, hypertension, hyperlipidemia, stroke, anemia, renal osteodystrophy, history of seizure-like activity. The patient came into the hospital for chief complaint of shortness of breath. This is been going on for about a week or so. this is worse with exertion.He continues to smoke in spite of the shortness of breath. He does take inhalers. He went to dialysis on Friday and and got to his dry weight. He did skip last Friday he thinks but he is not sure. On dialysis he developed a headache and belly pain. He had a little nausea possibly as well but he can not remember. After got off dialysis he felt better after a few hours. No vomiting. No diarrhea. He does has a little bit of belly pain and a little bit of a headache now. No fevers or chills. No cough. Review of Systems Constitutional: Constitutional: Reports no additional constitutional complaints Eyes: Eyes: Reports no additional eye complaints ENT: Reports system reviewed and no additional complaints, except as documented Cardiovascular: Cardiovascular: Reports no additional cardiovascular complaints Respiratory: Respiratory: Reports no additional respiratory complaints Gastrointestinal: Gastrointestinal: Reports no additional gastrointestinal complaints Genitourinary: Genitourinary: Reports no additional male genitourinary complaints Musculoskeletal: Musculoskeletal: Reports no additional musculoskeletal complaints Integumenta
--- NOTE | 2022-07-27 11:41 | PM.IMPN ---
Progress Note: A&P Assessment and Plan (1) Chronic obstructive pulmonary disease: Code(s): J44.9 - Chronic obstructive pulmonary disease, unspecified Status: Acute Assessment and Plan: patient started on breathing treatments chest x-ray reviewed supportive care continue to monitor (2) End-stage renal disease on hemodialysis: Code(s): N18.6 - End stage renal disease; Z99.2 - Dependence on renal dialysis Status: Acute Assessment and Plan: continue hemodialysis nephrology consult (3) History of placement of leadless cardiac pacemaker: Code(s): Z95.0 - Presence of cardiac pacemaker Status: Acute Assessment and Plan: continue to monitor Plan Shortness of breath: Suspected COPD exacerbation. Labs unremarkable. Except for mild leukocytosis at 10,000. Mild troponin elevation at 0.047 and BNP of 1910. Influenza COVID negative ABG 7.42/46/238. Chest x-ray with COPD with no acute pulmonary disease. EKG with mild tachycardia sinus with nonspecific ST-T changes. History of Cerebrovascular accident Chronic obstructive pulmonary disease exacerbation on steroid. Received azithromycin yesterday will order no pneumonia her coverage for CAP Coronary artery disease End-stage renal disease on hemodialysis Friday, , Friday. Erythropoietin deficiency anemia Hypertension Peripheral vascular disease Renal osteodystrophy Seizure-like activity:Normal EEG in April 2022 though patient is on levetiracetam. Tobacco abuse DVT prophylaxis Code status full code Subjective Date/time seen: 07/27/22 11:41 Interval history: This is a 66-year-old male with past medical history significant for end-stage renal disease on hemodialysis, hypertension, coronary artery disease, stroke, tobacco dependence, pacemaker.? Patient presented to the emergency room due to cough and shortness of breath patient is a very poor historian and cannot really give any history.? Preliminary workup was significant for a chest x-ray was reported as: IMPRESSION: COPD; no active pulmonary disease Left dual-lead pacemaker Right internal jugular catheter in superior vena cava No significant change since 07/07/2022? 07/27/2022 complains of headache and belly pain. He has aphasia and review of system could not be done completely. He does seem to understand me. Review of Systems Review of Systems: All systems reviewed & are unremarkable except as noted in HPI and below Exam Narrative: Constitutional: Alert aphasic moving all extremities HEENT: Normocephalic atraumatic Eyes: PERRLA, EOM intact bilaterally Chest right upper chest dialysis catheter access Respiratory: Coarse breath sounds bilaterally no wheezes or rhonchi Cardiac: Regular rhythm regular rate GI: Soft, nontender, no organomegaly Skin: No rash no lesions Neuro: Alert and awake, aphasic moving all extremities Extremities no edema cyanosis or clubbing Objective Data Vital Signs Vital Signs: Vital Signs - 24 hr 07/26/22 19:06 07/26/22 19:09 07/26/22 19:42 Temperature 98.3 F Pulse Rate 111 H 84 Respiratory Rate 28 H 24 H Blood Pressure 181/108 H Pulse Oximetry 95 95 Oxygen Delivery Room Air Oxygen Flow Rate 07/26/22 22:58 07/26/22 19:10 07/26/22 19:15 Temperature Pulse Rate Respiratory Rate Blood Pressure 165/82 H Pulse Oximetry 93 95 Oxygen Delivery Oxygen Flow Rate 07/26/22 19:58 07/26/22 20:00 07/26/22 20:25 Temperature Pulse Rate 84 82 Respiratory Rate Blood Pressure Pulse Oximetry 100 Oxygen Delivery Oxygen Flow Rate 07/26/22 20:37 07/26/22 20:58 07/26/22 21:00 Temperature Pulse Rate 87 87 Respiratory Rate 22 H 24 H Blood Pressure Pulse Oximetry 100 Oxygen Delivery Oxygen Flow Rate 07/26/22 22:07 07/26/22 22:15 07/26/22 22:30 Temperature Pulse Rate 75 88 80 Respiratory Rate 24 H 17 26 H Blood Pressure Pulse
[2022-07-27 11:43] LABS: Glucose Point of Care 192 mg/dl (65-105)
[2022-07-27] MEDS: HYDROcodone/acetaminophen (*CRX) 5-325 MG TABLET 1 TAB PO ×2 (12:42→18:30)
[2022-07-27 17:15] LABS: Glucose Point of Care 117 mg/dl (65-105)
[2022-07-27] MEDS: SALINE 0.65% NAS SOLN 44 ML BTL 1 SPRAY NASAL (18:47)
[2022-07-27 19:29] LABS: Glucose Point of Care 176 mg/dl (65-105)
[2022-07-27] MEDS: FAMOTIDINE 20 MG TABLET PO (20:50)
--- NOTE | 2022-07-27 21:42 | PC.NURSE ---
Patient transferred to [facility] bed 1 at 2135. Report given to JIM Irving
[2022-07-28] MEDS: HYDROcodone/acetaminophen (*CRX) 5-325 MG TABLET 1 TAB PO ×2 (00:47→10:00)
--- NOTE | 2022-07-28 01:25 | PC.NURSE ---
Daylight Savings Time For Daylight Savings Time Ending in the Fall - Clocks are moved back. For Daylight Savings Time Beginning in the Spring - Clocks are moved ahead. For [facility], the time of change occurs at 0200 hrs. Time is taken from the geophysical observer. This entry on the patient's chart recognizes the change in time reflected during documentation. Example: 2 entries for vital signs may be charted for 0200 hrs.
[2022-07-28 08:00] LABS: Basophils Absolute Auto 0.1 K/mm3 (0.0-0.1); Basophils Percent Auto 0.4 % (0.2-1.2); Eosinophils Absolute Auto 0.1 K/mm3 (0-0.3); Eosinophils Percent Auto 0.8 % (0-4.4); Hematocrit 32.5 % (42.0-52.0); Hemoglobin 10.8 g/dL (14.0-18.0); Immature Granulocyte Absolute 0.03 K/mm3 (0.00-0.031); Immature Granulocyte Percent A 0.3 % (0-0.5); Lymphocytes Absolute Auto 2.12 K/mm3 (0.9-3.2); Lymphocytes Percent Auto 18.6 % (18.3-44.2); Mean Corpuscular HGB Conc 33.2 g/dl (32-36); Mean Corpuscular Volume 96.2 fl (80-100); Mean Platelet Volume 10.4 fl (7.4-10.4); Monocytes Absolute Auto 0.6 K/mm3 (0.1-0.6); Monocytes Percent Auto 4.9 % (2.6-8.5); Neutrophils Absolute Auto 8.5 K/mm3 (1.3-6.7); Platelet Count Result 244 k/mm3 (150-375); Red Blood Count 3.38 M/mm3 (4.6-6.20); Red Cell Distribution Width 12.6 % (11.5-14.5); White Blood Count 11.4 K/mm3 (4.5-10.0)
[2022-07-28 08:11] LABS: Glucose Point of Care 106 mg/dl (65-105)
[2022-07-28 08:13] LABS: Alanine Aminotransferase 15 U/L (6-50); Albumin Level 3.8 g/dL (3.5-5.1); Alkaline Phosphatase 67 U/L (38-126); Anion Gap 17 mmol/L (8-16); Aspartate Amino Transferase 18 U/L (17-59); Bilirubin,Total 0.3 mg/dL (0.2-1.3); Blood Urea Nitrogen 42 mg/dL (9-20); Calcium 8.1 mg/dL (8.4-10.2); Carbon Dioxide 27 mmol/L (22-30); Chloride 93 mmol/L (98-107); Estimated CRCL calculation 9 ml/min; Estimated Glomerular Filt Rate 11; Glucose 128 mg/dL (65-110); Phosphorus 3.6 mg/dL (2.5-4.5); Potassium 3.7 mmol/L (3.4-5.0); Sodium 137 mmol/L (137-145)
[2022-07-28] MEDS: SODIUM BICARBONATE TAB 650 MG TABLET PO ×3 (08:46→18:05)
[2022-07-28] MEDS: NIFEdipine 30 MG TAB.ER.24 90 MG PO (08:47)
[2022-07-28] MEDS: levETIRAcetam 250 MG TABLET PO ×2 (08:48→21:00)
[2022-07-28] MEDS: ASPIRIN 81 MG ENTERIC TABLET PO (08:48)
[2022-07-28] MEDS: ISOSORBIDE MONONITRATE 30 MG TAB.ER.24H PO (08:48)
[2022-07-28] MEDS: lisinopriL 20 MG TABLET 40 MG PO (08:48)
[2022-07-28] MEDS: predniSONE 20 MG TABLET 40 MG PO (08:48)
[2022-07-28] MEDS: DIVALPROEX SODIUM ER 500 MG TAB.24H PO ×2 (08:48→18:19)
[2022-07-28] MEDS: ATORVASTATIN 40 MG TABLET PO (08:49)
--- NOTE | 2022-07-28 10:57 | PM.PNNEP ---
Progress Note: A&P Assessment and Plan (1) End-stage renal disease on hemodialysis: Code(s): N18.6 - End stage renal disease; Z99.2 - Dependence on renal dialysis Status: Acute Assessment and Plan: the patient has end-stage renal disease on dialysis 3 times a week. He is due for dialysis Friday. He did not get yesterday so we will do a dialysis tomorrow to make up for it. His electrolytes are okay and his volume status looks okay. Discussed with Dr. Moore (2) Shortness of breath: Code(s): R06.02 - Shortness of breath Status: Acute Assessment and Plan: The patient has shortness of breath. he has a COPD exacerbation. Chest x-ray does not show fluid. (3) Hypertension: Code(s): I10 - Essential (primary) hypertension Status: Acute Assessment and Plan: The patient has hypertension. blood pressure seems to be coming down as he gets his home medications. . (4) Renal osteodystrophy: Code(s): N25.0 - Renal osteodystrophy Status: Acute Assessment and Plan: phosphorus is normal (5) Erythropoietin deficiency anemia: Code(s): D63.1 - Anemia in chronic kidney disease Status: Acute Assessment and Plan: hemoglobin level is good. his COPD probably keeps the hemoglobin high. (6) Tobacco abuse: Code(s): Z72.0 - Tobacco use Status: Acute Assessment and Plan: I encouraged him to stop smoking. (7) Coronary artery disease: Code(s): I25.10 - Atherosclerotic heart disease of [place] coronary artery without angina pectoris Status: Acute Assessment and Plan: No chest pain. Subjective Date/time seen: 07/28/22 10:57 Interval history: same feels about the same today. He still has a mild headache and some belly discomfort. No shortness of breath. No swelling Review of Systems Cardiovascular: Cardiovascular: Reports no additional cardiovascular complaints Respiratory: Respiratory: Reports no additional respiratory complaints Gastrointestinal: Gastrointestinal: Reports no additional gastrointestinal complaints Genitourinary: Genitourinary: Reports no additional male genitourinary complaints Exam Narrative: WDWN in NAD skin no rash head ncat lungs diffusely decreased breath sounds and increased expiratory phase but no crackles. cor reg no rub abd BS+ nontender and soft ext no edema. Objective Data Vital Signs Vital Signs: Vital Signs - 24 hr 07/27/22 12:13 07/27/22 12:00 07/27/22 12:00 Temperature 36.3 C L Pulse Rate 76 66 Respiratory Rate 16 Blood Pressure 148/66 H Pulse Oximetry 98 94 Oxygen Delivery Nasal Cannula Oxygen Flow Rate 1 07/27/22 14:00 07/27/22 16:00 07/27/22 13:38 Temperature 36.3 C L Pulse Rate 63 66 64 Respiratory Rate 20 18 Blood Pressure 147/68 H Pulse Oximetry 96 Oxygen Delivery Oxygen Flow Rate 07/27/22 13:48 07/27/22 17:00 07/27/22 20:09 Temperature 36.2 C L Pulse Rate 72 88 Respiratory Rate 18 20 Blood Pressure 150/79 H Pulse Oximetry 94 97 Oxygen Delivery Room Air Oxygen Flow Rate 07/27/22 20:00 Temperature Pulse Rate Respiratory Rate Blood Pressure Pulse Oximetry Oxygen Delivery Room Air Oxygen Flow Rate Intake/Output Intake/Output: Intake & Output 07/25/22 07/26/22 07/27/22 07/28/22 23:59 23:59 23:59 22:59 Intake Total 50 800 240 Output Total 900 500 Balance 50 -100 -260 Meds/Results Medications: Active Medications Generic Name Dose Route Start Last Admin Trade Name Freq PRN Reason Stop Dose Admin Hydrocodone Bitart/Acetaminophen 1 tab 07/27/22 11:51 07/28/22 10:00 Hydrocodone/Acetaminophen (*Crx) 5-325 Mg Tablet PO 1 tab Q4H PRN Administration Pain Rated 4-6 Albuterol 5 mg 07/27/22 02:00 07/28/22 10:29 Albuterol Sulfate Neb 2.5 Mg/3 Ml Inh INHALATION Not Given Q6HRT DRAGAN Aspiri
[2022-07-28 11:29] LABS: Glucose Point of Care 161 mg/dl (65-105)
[2022-07-28 13:30] VITALS: PULSE 79; RESP 18
--- NOTE | 2022-07-28 13:37 | PM.IMPN ---
Progress Note: A&P Assessment and Plan (1) Chronic obstructive pulmonary disease: Code(s): J44.9 - Chronic obstructive pulmonary disease, unspecified Status: Acute Assessment and Plan: patient started on breathing treatments chest x-ray reviewed supportive care continue to monitor (2) End-stage renal disease on hemodialysis: Code(s): N18.6 - End stage renal disease; Z99.2 - Dependence on renal dialysis Status: Acute Assessment and Plan: continue hemodialysis nephrology consult (3) History of placement of leadless cardiac pacemaker: Code(s): Z95.0 - Presence of cardiac pacemaker Status: Acute Assessment and Plan: continue to monitor Plan Shortness of breath: Suspected COPD exacerbation. Labs unremarkable. Except for mild leukocytosis at 10,000. Mild troponin elevation at 0.047 and BNP of 1910. Influenza COVID negative ABG 7.42/46/238. Chest x-ray with COPD with no acute pulmonary disease. EKG with mild tachycardia sinus with nonspecific ST-T changes. Switched Solu-Medrol to prednisone. History of Cerebrovascular accident Abdominal pain: On clear etiology. Will get CT abdomen Chronic obstructive pulmonary disease exacerbation on steroid. continue azithromycin for COPD exacerbation Coronary artery disease End-stage renal disease on hemodialysis Friday, , Friday. refused dialysis yesterday Erythropoietin deficiency anemia Hypertension Peripheral vascular disease Renal osteodystrophy Seizure-like activity:Normal EEG in April 2022 though patient is on levetiracetam. Tobacco abuse DVT prophylaxis Code status full code Subjective Date/time seen: 07/28/22 13:37 Interval history: This is a 66-year-old male with past medical history significant for end-stage renal disease on hemodialysis, hypertension, coronary artery disease, stroke, tobacco dependence, pacemaker.? Patient presented to the emergency room due to cough and shortness of breath patient is a very poor historian and cannot really give any history.? Preliminary workup was significant for a chest x-ray was reported as: IMPRESSION: COPD; no active pulmonary disease Left dual-lead pacemaker Right internal jugular catheter in superior vena cava No significant change since 07/07/2022? 07/27/2022 complains of headache and belly pain. He has aphasia and review of system could not be done completely. He does seem to understand me. 03/27/2022: Continues to complain of some headache and belly pain. No nausea vomiting. Denies any chest pain . Shortness of breath seems to improving sees. Denies any cough he did not go for his dialysis yesterday. Review of Systems Review of Systems: All systems reviewed & are unremarkable except as noted in HPI and below Exam Narrative: Constitutional: Alert moving all extremities HEENT: Normocephalic atraumatic Eyes: PERRLA, EOM intact bilaterally Chest right upper chest dialysis catheter access Respiratory: Coarse breath sounds bilaterally no wheezes or rhonchi Cardiac: Regular rhythm regular rate GI: Soft, nontender, no organomegaly Skin: No rash no lesions Neuro: Alert and awake, moving all extremities Extremities no edema cyanosis or clubbing Objective Data Vital Signs Vital Signs: Vital Signs - 24 hr 07/27/22 16:00 07/27/22 17:00 07/27/22 20:09 Temperature 97.4 F L 97.1 F L Pulse Rate 66 88 Respiratory Rate 20 20 Blood Pressure 147/68 H 150/79 H Pulse Oximetry 96 94 97 Oxygen Delivery Room Air 07/27/22 20:00 07/28/22 10:00 Temperature Pulse Rate Respiratory Rate Blood Pressure Pulse Oximetry Oxygen Delivery Room Air Room Air Intake/Output Intake/Output: Intake & Output 07/25/22 07/26/22 07/27/22 07/28/22 23:59 23:59 23:59 22:59 Intake Total 50 800 240 Output Total 900 900 Balance 50 -100 -660 Meds/Results Medications: Active Medications Generic Name Dose Route Start Last A
[2022-07-28] MEDS: ALBUTEROL SULFATE NEB 2.5 MG/3 ML INH 5 MG INHALATION ×2 (13:39→21:04)
[2022-07-28] MEDS: IPRATROPIUM BR 0.02% INH SOLN 0.5 MG/2.5 ML VIAL INHALATION ×2 (13:39→21:04)
[2022-07-28 13:41] VITALS: O2SAT 97
[2022-07-28 13:42] VITALS: PULSE 74; RESP 18
[2022-07-28 14:00] VITALS: BP 157/86; PULSE 68; RESP 20; TEMP 36.7; O2SAT 95
[2022-07-28 14:11] LABS: Lipase 77 U/L (23-300)
[2022-07-28 16:54] LABS: Glucose Point of Care 173 mg/dl (65-105)
--- NOTE | 2022-07-28 16:56 | PC.NURSE ---
Pt has been resting in bed all day. Pt has orders for dialysis tomorrow. Pt has only required pain medication once today. Pt participated and contributed in plan of care. Pt has no complaints and verbalizes no needs at this time. Will continue to monitor pt.
[2022-07-28 20:36] LABS: Glucose Point of Care 141 mg/dl (65-105)
[2022-07-28] MEDS: FLUTICASONE/SALMETEROL 230-21 MCG INHALER 1 PUFF 2 PUFF INHALATION (21:03)
[2022-07-28 21:06] VITALS: PULSE 72; RESP 16
[2022-07-28 21:48] VITALS: BP 147/74; PULSE 79; RESP 20; TEMP 36.8; O2SAT 98
[2022-07-29] VITALS (20 sets, daily range): BP systolic 123–179; BP diastolic 53–105; PULSE 67–117; RESP 16–28; TEMP 36.4–37; O2SAT 89–100
--- NOTE | 2022-07-29 00:19 | PC.NURSE ---
Mr. Larose called the nurses station and we couldn't understand him. I went in his room, he is very agitated, trying to talk, and I could not understand him his speech is garbled, he cannot get a clear word out. He was clear earlier and last night.
--- NOTE | 2022-07-29 00:47 | PC.NURSE ---
Pt back from CT
--- NOTE | 2022-07-29 01:25 | PC.NURSE ---
Notified Dr. Brown with CT results of, No acute intracranial abnormality identified. She would like for us to hold all pain meds.
[2022-07-29 06:25] LABS: Hematocrit 32.7 % (42.0-52.0); Hemoglobin 10.9 g/dL (14.0-18.0); Mean Corpuscular HGB Conc 33.3 g/dl (32-36); Mean Corpuscular Hemoglobin 32.2 pg (26-34); Mean Corpuscular Volume 96.7 fl (80-100); Mean Platelet Volume 10.4 fl (7.4-10.4); Platelet Count Result 253 k/mm3 (150-375); Red Blood Count 3.38 M/mm3 (4.6-6.20); Red Cell Distribution Width 12.6 % (11.5-14.5); White Blood Count 11.8 K/mm3 (4.5-10.0)
[2022-07-29 06:36] LABS: Alanine Aminotransferase 15 U/L (6-50); Albumin Level 3.8 g/dL (3.5-5.1); Alkaline Phosphatase 75 U/L (38-126); Anion Gap 13 mmol/L (8-16); Aspartate Amino Transferase 19 U/L (17-59); Bilirubin,Total 0.3 mg/dL (0.2-1.3); Blood Urea Nitrogen 50 mg/dL (9-20); Calcium 8.1 mg/dL (8.4-10.2); Carbon Dioxide 26 mmol/L (22-30); Chloride 99 mmol/L (98-107); Estimated CRCL calculation 9 ml/min; Estimated Glomerular Filt Rate 10; Glucose 118 mg/dL (65-110); Magnesium 2.1 mg/dL (1.6-2.3); Phosphorus 3.7 mg/dL (2.5-4.5); Potassium 3.9 mmol/L (3.4-5.0); Sodium 138 mmol/L (137-145)
[2022-07-29] MEDS: DIVALPROEX SODIUM ER 500 MG TAB.24H PO ×2 (08:10→17:36)
[2022-07-29] MEDS: SODIUM BICARBONATE TAB 650 MG TABLET PO ×3 (08:11→17:36)
[2022-07-29] MEDS: lisinopriL 20 MG TABLET 40 MG PO (08:11)
[2022-07-29] MEDS: NIFEdipine 30 MG TAB.ER.24 90 MG PO (08:11)
[2022-07-29] MEDS: levETIRAcetam 250 MG TABLET PO ×2 (08:11→22:12)
[2022-07-29] MEDS: ISOSORBIDE MONONITRATE 30 MG TAB.ER.24H PO (08:11)
[2022-07-29] MEDS: ATORVASTATIN 40 MG TABLET PO (08:11)
[2022-07-29] MEDS: ASPIRIN 81 MG ENTERIC TABLET PO (08:11)
[2022-07-29] MEDS: predniSONE 20 MG TABLET 40 MG PO (08:11)
[2022-07-29] MEDS: FLUTICASONE/SALMETEROL 230-21 MCG INHALER 1 PUFF 2 PUFF INHALATION ×2 (08:29→21:03)
[2022-07-29] MEDS: ALBUTEROL SULFATE NEB 2.5 MG/3 ML INH 5 MG INHALATION ×2 (08:30→21:02)
[2022-07-29] MEDS: IPRATROPIUM BR 0.02% INH SOLN 0.5 MG/2.5 ML VIAL INHALATION ×2 (08:30→21:03)
[2022-07-29 08:39] LABS: Glucose Point of Care 77 mg/dl (65-105)
[2022-07-29 11:49] LABS: Glucose Point of Care 102 mg/dl (65-105)
--- NOTE | 2022-07-29 13:58 | PM.PNNEP ---
Progress Note: A&P Assessment and Plan (1) End-stage renal disease on hemodialysis: Code(s): N18.6 - End stage renal disease; Z99.2 - Dependence on renal dialysis Status: Chronic Assessment and Plan: HD today (since he refused his scheduled dialysis on Friday) will eventually transition back to T/T/S schedule follow electrolytes, volume status, and clearance (2) Shortness of breath: Code(s): R06.02 - Shortness of breath Status: Acute Assessment and Plan: presumably due to his COPD exacerbation continue current therapy (supplemental oxygen, nebs, steroids...etc) follow respiratory status (3) Hypertension: Code(s): I10 - Essential (primary) hypertension Status: Acute Assessment and Plan: elevated as BP medications held in anticipation of dialysis follow trend of hemodynamics (4) Erythropoietin deficiency anemia: Code(s): D63.1 - Anemia in chronic kidney disease Status: Acute Assessment and Plan: due to ESRD H/H at goal so no need for Epogen therapy Will continue to follow. Subjective Date/time seen: 07/29/22 13:58 Chart reviewed -- assuming care from Dr. Nagy; tolerating dialysis at the time of my visit (seen on HD at 1:50PM) -he refused dialysis on Friday and hence treatment today; states that he feels better overall; breathing/respiratory status has improved in comparison to admission. Exam Narrative: General: WD/WN male in NAD Heart: normal S1 and S2; no rub Lungs: coarse and decreased breath sounds throughout Abdomen: soft, nontender, nondistended, positive bowel sounds Extremities: no cyanosis or clubbing; no edema Skin: warm and dry Objective Data Vital Signs Vital Signs: Vital Signs Temp Pulse Resp BP Pulse Ox O2 Del Method 07/29/22 13:58 73 173/100 H 07/29/22 08:31 94 Room Air 07/29/22 08:30 78 16 07/29/22 08:00 Room Air 07/29/22 06:00 36.8 C 89 20 171/89 H 99 07/29/22 00:19 36.5 C 101 H 28 H 156/86 H 94 07/28/22 21:48 36.8 C 79 20 147/74 H 98 07/28/22 21:06 72 16 Intake/Output Intake/Output: Intake & Output 07/27/22 07/28/22 07/28/22 07/29/22 00:59 00:59 23:59 23:59 Intake Total 840 Output Total 875 Balance -35 Meds/Results Medications: Active Medications Generic Name Dose Route Start Last Admin Trade Name Freq PRN Reason Stop Dose Admin Hydrocodone Bitart/Acetaminophen 1 tab 07/27/22 11:51 07/28/22 10:00 Hydrocodone/Acetaminophen (*Crx) 5-325 Mg Tablet PO 1 tab Q4H PRN Administration Pain Rated 4-6 Albuterol 5 mg 07/27/22 02:00 07/29/22 08:30 Albuterol Sulfate Neb 2.5 Mg/3 Ml Inh INHALATION 5 mg Q6HRT DRAGAN Administration Aspirin 81 mg 07/27/22 09:00 07/29/22 08:11 Aspirin 81 Mg Enteric Tablet PO 81 mg DAILY DRAGAN Administration Atorvastatin Calcium 40 mg 07/27/22 09:00 07/29/22 08:11 Atorvastatin 40 Mg Tablet PO 40 mg DAILY DRAGAN Administration Divalproex Sodium 500 mg 07/27/22 09:00 07/29/22 08:10 Divalproex Sodium Er 500 Mg Tab.24h PO 500 mg BID DRAGAN Administration Epoetin Jacques-epbx 10,000 units 07/29/22 17:00 07/29/22 14:01 Epoetin Jacques-Epbx 10,000 Units/Ml Vial IV PUSH 10,000 units MoWeFr@1700 DRAGAN Administration Famotidine 20 mg 07/27/22 21:00 07/27/22 20:50 Famotidine 20 Mg Tablet PO 20 mg TuThSa@2100 DRAGAN Administration Azithromycin 500 mg in 250 mls @ 250 mls/hr 07/28/22 06:00 07/29/22 05:31 Zithromax IVPB 250 mls/hr Q24H DRAGAN Administration Albumin Human 50 mls @ 999 mls/hr 07/28/22 10:57 Albutein IVPB 08/27/22 10:56 Q10M PRN HYPOTENSION Ipratropium [place] 0.5 mg 07/27/22 02:00 07/29/22 08:30 Ipratropium Br 0.02% Inh Soln 0.5 Mg/2.5 Ml Vial INHALATION 0.5 mg Q6HRT DRAGAN Administration Isosorbide Mononitrate 30 mg 07/27/22 09:00 07/29/22 08:11 Isosorbide Mononitrate 30 Mg
[2022-07-29] MEDS: EPOETIN ALFA-EPBX 10,000 UNITS/ML VIAL 10000 UNITS IV PUSH (14:01)
[2022-07-29] MEDS: HEPARIN SODIUM 1,000 UNITS/ML VIAL 1000 UNITS IV PUSH (14:02)
[2022-07-29] MEDS: HEPARIN SODIUM 1,000 UNITS/ML VIAL 500 UNITS IV PUSH (14:03)
[2022-07-29] MEDS: SODIUM CHLORIDE 0.9% IV 1,000 ML 999 ML IV CONT ×2 (14:03→14:04)
--- NOTE | 2022-07-29 15:49 | PM.IMPN ---
Progress Note: A&P Assessment and Plan (1) Chronic obstructive pulmonary disease: Code(s): J44.9 - Chronic obstructive pulmonary disease, unspecified Status: Acute Assessment and Plan: patient started on breathing treatments chest x-ray reviewed supportive care continue to monitor (2) End-stage renal disease on hemodialysis: Code(s): N18.6 - End stage renal disease; Z99.2 - Dependence on renal dialysis Status: Acute Assessment and Plan: continue hemodialysis nephrology consult (3) History of placement of leadless cardiac pacemaker: Code(s): Z95.0 - Presence of cardiac pacemaker Status: Acute Assessment and Plan: continue to monitor Plan Shortness of breath: Suspected COPD exacerbation. Labs unremarkable. Except for mild leukocytosis at 10,000. Mild troponin elevation at 0.047 and BNP of 1910. Influenza COVID negative ABG 7.42/46/238. Chest x-ray with COPD with no acute pulmonary disease. EKG with mild tachycardia sinus with nonspecific ST-T changes. Switched Solu-Medrol to prednisone. History of Cerebrovascular accident Abdominal pain: On clear etiology. CT abdomen with no acute findings Chronic obstructive pulmonary disease exacerbation on steroid. continue azithromycin for COPD exacerbation Coronary artery disease End-stage renal disease on hemodialysis Friday, , Friday. refused dialysis this Friday was planned to get dialyzed today. If not will dialyze tomorrow and potentially discharge if remains stable Erythropoietin deficiency anemia Hypertension Peripheral vascular disease Renal osteodystrophy Seizure-like activity:Normal EEG in April 2022 though patient is on levetiracetam. Tobacco abuse DVT prophylaxis Code status full code Subjective Date/time seen: 07/29/22 15:49 Interval history: This is a 66-year-old male with past medical history significant for end-stage renal disease on hemodialysis, hypertension, coronary artery disease, stroke, tobacco dependence, pacemaker.? Patient presented to the emergency room due to cough and shortness of breath patient is a very poor historian and cannot really give any history.? Preliminary workup was significant for a chest x-ray was reported as: IMPRESSION: COPD; no active pulmonary disease Left dual-lead pacemaker Right internal jugular catheter in superior vena cava No significant change since 07/07/2022? 07/27/2022 complains of headache and belly pain. He has aphasia and review of system could not be done completely. He does seem to understand me. 03/27/2022: Continues to complain of some headache and belly pain. No nausea vomiting. Denies any chest pain . Shortness of breath seems to improving sees. Denies any cough he did not go for his dialysis yesterday. 07/29/2022: Overnight had a CT scan done which showed chronic findings with no acute abnormality. He feels weak otherwise no specific complaints. He was coughing while I entered the room. Denies any chest pain or shortness of breath Review of Systems Review of Systems: All systems reviewed & are unremarkable except as noted in HPI and below Exam Narrative: Constitutional: Alert moving all extremities HEENT: Normocephalic atraumatic Eyes: PERRLA, EOM intact bilaterally Chest right upper chest dialysis catheter access Respiratory: Coarse breath sounds bilaterally no wheezes or rhonchi Cardiac: Regular rhythm regular rate GI: Soft, nontender, no organomegaly Skin: No rash no lesions Neuro: Alert and awake, moving all extremities Extremities no edema cyanosis or clubbing Objective Data Vital Signs Vital Signs: Vital Signs - 24 hr 07/28/22 21:06 07/28/22 21:48 07/29/22 00:19 Temperature 98.2 F 97.7 F Pulse Rate 72 79 101 H Respiratory Rate 16 20 28 H Blood Pressure 147/74 H 156/86 H Pulse Oximetry 98 94 Oxygen Delivery 07/29/22 06:00 07/29/22 08:00 07/29/22 08:30 Temperature 98.3 F
[2022-07-29 17:33] LABS: Glucose Point of Care 130 mg/dl (65-105)
[2022-07-29 20:23] LABS: Glucose Point of Care 169 mg/dl (65-105)
[2022-07-29] MEDS: FAMOTIDINE 20 MG TABLET PO (22:12)
[2022-07-30] MEDS: ALBUTEROL SULFATE NEB 2.5 MG/3 ML INH 5 MG INHALATION ×2 (03:14→08:45)
[2022-07-30] MEDS: IPRATROPIUM BR 0.02% INH SOLN 0.5 MG/2.5 ML VIAL INHALATION ×2 (03:14→08:45)
[2022-07-30 03:16] VITALS: PULSE 92; RESP 18
[2022-07-30 03:25] VITALS: PULSE 85; RESP 18
[2022-07-30 06:00] VITALS: BP 147/85; PULSE 82; RESP 18; TEMP 36.4; O2SAT 96
[2022-07-30 06:14] LABS: Basophils Absolute Auto 0.1 K/mm3 (0.0-0.1); Basophils Percent Auto 0.5 % (0.2-1.2); Eosinophils Percent Auto 0.2 % (0-4.4); Hematocrit 38.2 % (42.0-52.0); Hemoglobin 12.4 g/dL (14.0-18.0); Immature Granulocyte Absolute 0.05 K/mm3 (0.00-0.031); Immature Granulocyte Percent A 0.4 % (0-0.5); Lymphocytes Absolute Auto 3.04 K/mm3 (0.9-3.2); Lymphocytes Percent Auto 23.3 % (18.3-44.2); Mean Corpuscular HGB Conc 32.5 g/dl (32-36); Mean Corpuscular Hemoglobin 32.5 pg (26-34); Mean Platelet Volume 10.3 fl (7.4-10.4); Monocytes Absolute Auto 0.9 K/mm3 (0.1-0.6); Monocytes Percent Auto 7.1 % (2.6-8.5); Neutrophils Percent Auto 68.5 % (45.5-73.1); Platelet Count Result 268 k/mm3 (150-375); Red Blood Count 3.82 M/mm3 (4.6-6.20); Red Cell Distribution Width 12.6 % (11.5-14.5); White Blood Count 13.1 K/mm3 (4.5-10.0)
[2022-07-30 06:34] LABS: Alanine Aminotransferase 16 U/L (6-50); Alkaline Phosphatase 86 U/L (38-126); Anion Gap 11 mmol/L (8-16); Aspartate Amino Transferase 18 U/L (17-59); Bilirubin,Total 0.4 mg/dL (0.2-1.3); Blood Urea Nitrogen 34 mg/dL (9-20); Calcium 8.5 mg/dL (8.4-10.2); Carbon Dioxide 30 mmol/L (22-30); Chloride 96 mmol/L (98-107); Estimated CRCL calculation 12 ml/min; Estimated Glomerular Filt Rate 15; Glucose 86 mg/dL (65-110); Potassium 3.8 mmol/L (3.4-5.0); Sodium 137 mmol/L (137-145)
--- NOTE | 2022-07-30 07:32 | PM.PNNEP ---
Progress Note: A&P Assessment and Plan (1) End-stage renal disease on hemodialysis: Code(s): N18.6 - End stage renal disease; Z99.2 - Dependence on renal dialysis Status: Chronic Assessment and Plan: End-stage renal disease Benign essential hypertensive renal disease with hypertension with difficult to control blood pressure Shortness of breath presumably secondary to exacerbation of COPD Anemia of chronic kidney disease History of urine retention Plan Dialysis done yesterday, patient is usually on a Friday, , Friday dialysis schedule. He will get his next dialysis on Will get a bladder scan pre and postvoid Treatment of underlying problems, he is on azithromycin therapy Follow-up for ESRD and related needs Subjective Date/time seen: 07/30/22 07:32 End-stage renal disease follow-up Complains of pain in the left lower quadrant area. Shortness of breath is better. Cough. States that with dialysis his left lower quadrant pain is worse and also has a cough during dialysis. Exam Narrative: Patient currently lying in a supine position at about 10 degree inclination, not noticeably short of breath at that level of inclination, he is using oxygen, skin turgor normal, no pallor of the conjunctiva, JVD hard to see, regular rhythm, no gallop, no rub, equal breath sounds, diminished breath sounds, no rales or wheeze, soft nontender abdomen, no tenderness elicited in the left lower quadrant, no obvious masses, no lower extremity edema, neurological alert oriented x3, no tremor Objective Data Vital Signs Vital Signs: Vital Signs - 24 hr 07/29/22 08:00 07/29/22 08:30 07/29/22 08:31 Temperature Pulse Rate 78 Respiratory Rate 16 Blood Pressure Pulse Oximetry 94 Oxygen Delivery Room Air Room Air Oxygen Flow Rate 07/29/22 13:58 07/29/22 14:20 07/29/22 13:45 Temperature 37.0 C Pulse Rate 73 78 80 Respiratory Rate 16 Blood Pressure 173/100 H 176/105 H 179/94 H Pulse Oximetry Oxygen Delivery Oxygen Flow Rate 07/29/22 14:40 07/29/22 15:03 07/29/22 15:20 Temperature Pulse Rate 78 84 84 Respiratory Rate Blood Pressure 150/91 H 143/88 H 143/87 H Pulse Oximetry Oxygen Delivery Oxygen Flow Rate 07/29/22 15:40 07/29/22 16:00 07/29/22 16:20 Temperature Pulse Rate 87 93 108 H Respiratory Rate Blood Pressure 165/100 H 151/92 H 153/101 H Pulse Oximetry Oxygen Delivery Oxygen Flow Rate 07/29/22 16:40 07/29/22 16:49 07/29/22 17:45 Temperature 36.8 C 36.9 C Pulse Rate 80 117 H 99 Respiratory Rate 16 18 Blood Pressure 123/53 L 126/82 168/98 H Pulse Oximetry 89 L Oxygen Delivery Oxygen Flow Rate 07/29/22 21:05 07/29/22 21:06 07/29/22 21:24 Temperature Pulse Rate 67 71 Respiratory Rate 18 18 Blood Pressure Pulse Oximetry 95 Oxygen Delivery Nasal Cannula Oxygen Flow Rate 2 07/29/22 21:33 07/30/22 03:16 07/30/22 03:25 Temperature 36.4 C Pulse Rate 92 92 85 Respiratory Rate 20 18 18 Blood Pressure 138/70 Pulse Oximetry 100 Oxygen Delivery Oxygen Flow Rate 07/30/22 06:00 Temperature 36.4 C L Pulse Rate 82 Respiratory Rate 18 Blood Pressure 147/85 H Pulse Oximetry 96 Oxygen Delivery Oxygen Flow Rate Intake/Output Intake/Output: Intake & Output 07/28/22 07/28/22 07/29/22 07/30/22 00:59 23:59 23:59 23:59 Intake Total 1580 580 Output Total 3975 200 Balance -2395 380 Meds/Results Medications: Active Medications Generic Name Dose Route Start Last Admin Trade Name Freq PRN Reason Stop Dose Admin Hydrocodone Bitart/Acetaminophen 1 tab 07/27/22 11:51 07/28/22 10:00 Hydrocodone/Acetaminophen (*Crx) 5-325 Mg Tablet PO 1 tab Q4H PRN Administration Pain Rated 4-6 Albuterol 5 mg 07/27/22 02:00 07/30/22 03:14 Albuterol Sulfate Neb 2.5 Mg/3 Ml Inh INHALATION 5 mg Q6HRT DRAGAN Administration Aspirin 81 mg 07/27/22
[2022-07-30 07:55] LABS: Glucose Point of Care 92 mg/dl (65-105)
[2022-07-30 08:46] VITALS: PULSE 79; RESP 18; O2SAT 97
[2022-07-30] MEDS: FLUTICASONE/SALMETEROL 230-21 MCG INHALER 1 PUFF 2 PUFF INHALATION (08:46)
[2022-07-30 09:00] VITALS: PULSE 92; RESP 18
[2022-07-30] MEDS: levETIRAcetam 250 MG TABLET PO (09:08)
[2022-07-30] MEDS: ASPIRIN 81 MG ENTERIC TABLET PO (09:08)
[2022-07-30] MEDS: predniSONE 20 MG TABLET 40 MG PO (09:08)
[2022-07-30] MEDS: ISOSORBIDE MONONITRATE 30 MG TAB.ER.24H PO (09:08)
[2022-07-30] MEDS: SODIUM BICARBONATE TAB 650 MG TABLET PO ×2 (09:09→12:32)
[2022-07-30] MEDS: ATORVASTATIN 40 MG TABLET PO (09:09)
[2022-07-30] MEDS: lisinopriL 20 MG TABLET 40 MG PO (09:09)
[2022-07-30] MEDS: NIFEdipine 30 MG TAB.ER.24 90 MG PO (09:09)
[2022-07-30] MEDS: DIVALPROEX SODIUM ER 500 MG TAB.24H PO (09:10)
[2022-07-30 10:00] VITALS: O2SAT 95
--- NOTE | 2022-07-30 11:01 | PM.DS ---
DS: Admitting Diagnosis Discharge Date 07/30/2022 Admitting Diagnosis shortness of breath DS: Discharge Diagnosis Discharge Diagnosis (1) Chronic obstructive pulmonary disease: Code(s): J44.9 - Chronic obstructive pulmonary disease, unspecified Status: Acute (2) End-stage renal disease on hemodialysis: Code(s): N18.6 - End stage renal disease; Z99.2 - Dependence on renal dialysis Status: Chronic (3) History of placement of leadless cardiac pacemaker: Code(s): Z95.0 - Presence of cardiac pacemaker Status: Acute DS: Summary Hospital Course Hospital Course: # Shortness of breath:? Suspected COPD exacerbation.? Labs unremarkable.? Except for mild leukocytosis at 10,000. Mild troponin elevation at 0.047 and BNP of 1910.? Influenza COVID negative ABG 7.42/46/238.? Chest x-ray with COPD with no acute pulmonary disease.? EKG with mild tachycardia sinus with nonspecific ST-T changes.? Switched Solu-Medrol to prednisone. taper prednisone at dischage. finish azithromycin course. # History of Cerebrovascular accident # Abdominal pain:? On clear etiology. ? CT abdomen with no acute findings # Chronic obstructive pulmonary disease exacerbation on steroid. ? continue azithromycin for COPD exacerbation # Coronary artery disease # End-stage renal disease on hemodialysis Friday, , Friday. refused dialysis? this Friday and hence was dialysed on 07/29/2022. he will get next this comign . # Erythropoietin deficiency anemia # Hypertension # Peripheral vascular disease # Renal osteodystrophy # Seizure-like activity:Normal EEG in April 2022 though patient is on levetiracetam. # Tobacco abuse # DVT prophylaxis # Code status full code Time Spent with Patient Time attestation: Total time spent providing and/or coordinating discharge services:35 mins Exam Narrative: Constitutional: Alert moving all extremities HEENT: Normocephalic atraumatic Eyes: PERRLA, EOM intact bilaterally Chest right upper chest dialysis catheter access Respiratory: Coarse breath sounds bilaterally no wheezes or rhonchi Cardiac: Regular rhythm regular rate GI: Soft, nontender, no organomegaly Skin: No rash no lesions Neuro: Alert and awake, moving all extremities Extremities no edema cyanosis or clubbing DS: Data Data Completed and Pending Labs on day of discharge: Labs from last 24 hours 07/30/22 07/30/22 07/30/22 07:33 05:37 05:37 WBC 13.1 H RBC 3.82 L Hgb 12.4 L Hct 38.2 L MCV 100.0 MCH 32.5 MCHC 32.5 RDW 12.6 Plt Count 268 MPV 10.3 Immature Gran % (Auto) 0.4 Neut % (Auto) 68.5 Lymph % (Auto) 23.3 [place] % (Auto) 7.1 Eos % (Auto) 0.2 Baso % (Auto) 0.5 Lymph # (Auto) 3.04 [place] # (Auto) 0.9 H Eos # (Auto) 0.0 Baso # (Auto) 0.1 Abs Immat Gran (auto) 0.05 H Absolute Neuts (auto) 9.0 H Absolute Nucleated RBC 0.0 Nucleated RBC % 0.0 Sodium 137 Potassium 3.8 Chloride 96 L Carbon Dioxide 30 Anion Gap 11 BUN 34 H D Creatinine 4.10 H Estim Creat Clear Calc 12 Estimated GFR 15 L Glucose 86 POC Capillary Glucose 92 Calcium 8.5 Total Bilirubin 0.4 AST 18 ALT 16 Alkaline Phosphatase 86 Total Protein 7.0 Albumin 4.0 07/29/22 07/29/22 07/29/22 20:17 17:31 11:43 WBC RBC Hgb Hct MCV MCH MCHC RDW Plt Count MPV Immature Gran % (Auto) Neut % (Auto) Lymph % (Auto) [place] % (Auto) Eos % (Auto) Baso % (Auto) Lymph # (Auto) [place] # (Auto) Eos # (Auto) Baso # (Auto) Abs Immat Gran (auto) Absolute Neuts (auto) Absolute Nucleated RBC Nucleated RBC % Sodium Potassium Chloride Carbon Dioxide Anion Gap BUN Creatinine Estim Creat Clear Calc Estimated GFR Glucose POC Capillary Glucose 169 H 130 H 102 Calcium Total Bilirubin AST ALT Alkal
--- NOTE | 2022-07-30 11:10 | PC.NURSE ---
Per Nephrology, ok to be discharged today.
[2022-07-30 11:55] LABS: Glucose Point of Care 123 mg/dl (65-105)
== END 2022-07-30 15:08 | disposition home or self-care (01) | DRG 140 ==
LOC: ANHED 19:04 → ANHIMU 22:46 → ANH3MEDSUR 07-27 21:55
PROVIDERS: Internal Medicine Nephrology; Admitting Provider Internal Medicine; Emergency Provider General Practice; Visit Provider Internal Medicine
DX: J44.1 Chronic obstructive pulmonary disease with (acute) exacerbation (principal); I12.0 Hypertensive chronic kidney disease with stage 5 chronic kidney disease or end stage renal disease; N18.6 End stage renal disease; I25.10 Atherosclerotic heart disease of native coronary artery without angina pectoris; Z20.822 Contact with and (suspected) exposure to COVID-19; I73.9 Peripheral vascular disease, unspecified; N25.0 Renal osteodystrophy; E78.5 Hyperlipidemia, unspecified; D63.1 Anemia in chronic kidney disease; F17.210 Nicotine dependence, cigarettes, uncomplicated; Z99.2 Dependence on renal dialysis; Z79.82 Long term (current) use of aspirin; Z86.73 Personal history of transient ischemic attack (TIA), and cerebral infarction without residual deficits; Z95.0 Presence of cardiac pacemaker; Z95.5 Presence of coronary angioplasty implant and graft; Z86.16 Personal history of COVID-19
CPT/HCPCS: 36415; 36600; 70450; 71045; 74176; 80053; 80069; 82805; 82948; 83690; 83735; 83880; 84484; 85025; 85027; 85610; 85730; 87040; 87502; 93005; 94640; 96365; 96375; 99285; A9270; G0257; G0378; G0379; J0131; J0456; J0696; J1644; J2930; J7030; J7512; Q5105; U0003; U0005

== ENCOUNTER 2022-08-17 20:38 | Inpatient (IN) | payer OTHER, SELFPAY ==
[2022-08-17] VITALS (8 sets, daily range): BP systolic 161–182; BP diastolic 82–108; PULSE 81–89; RESP 14–33; TEMP 36.5–37.2; O2SAT 96–100; BMI 19.1
--- NOTE | ~2022-08-17 | XR_ITS ---
EXAMINATION: XR chest 1V portable Exam Date/Time: 08/17/2022 20:55 ASP DEVELOPER HISTORY: Dyspnea. Poor historian. Hx HTN, CAD, COPD Comparison: 07/26/2022, 07/07/2022, 07/06/2022. RESULT: Lines, tubes, and devices: Left chest pacer with intact leads. Right IJ dual-lumen catheter, in stab le and good position. Lungs and pleura: Increased ill-defined groundglass midlung opacities and increased peripheral retic ular opacities, overlying changes of chronic bronchitis. Cardiomediastinal silhouette: Stable. Other: No acute osseous or upper abdominal finding. IMPRESSION: Pulmonary findings may reflect mild interstitial pulmonary edema. Infection is not excluded. Reviewed, dictated and finalized at location K. DEVELOPER
--- NOTE | 2022-08-17 20:46 | ECG_ITS ---
Measurements Intervals [place] Rate: 87 P: 78 UT: 141 QRS: 74 QRSD: 85 T: 74 QT: 380 QTc: 459 Interpretive Statements SINUS RHYTHM NONSPECIFIC ST & T-WAVE ABNORMALITY- INF/HIGH LAT LEADS ABNORMAL ECG- II, III, AVR, AVF BORDERLINE ECG COMPARED TO ECG 07/26/2022 18:51:08 SINUS RHYTHM NOW PRESENT Electronically Signed On 08-17-2022 22:12:59 INSURANCE BILLING CLERK by Varun Ashraf D.O.
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
[2022-08-17 21:07] LABS: Basophils Absolute Auto 0.1 K/mm3 (0.0-0.1); Basophils Percent Auto 0.6 % (0.2-1.2); Eosinophils Absolute Auto 0.3 K/mm3 (0-0.3); Eosinophils Percent Auto 3.1 % (0-4.4); Hematocrit 34.2 % (42.0-52.0); Hemoglobin 11.5 g/dL (14.0-18.0); Immature Granulocyte Absolute 0.02 K/mm3 (0.00-0.031); Immature Granulocyte Percent A 0.2 % (0-0.5); Lymphocytes Absolute Auto 1.61 K/mm3 (0.9-3.2); Mean Corpuscular HGB Conc 33.6 g/dl (32-36); Mean Corpuscular Hemoglobin 32.5 pg (26-34); Mean Corpuscular Volume 96.6 fl (80-100); Mean Platelet Volume 10.1 fl (7.4-10.4); Monocytes Absolute Auto 0.5 K/mm3 (0.1-0.6); Monocytes Percent Auto 6.4 % (2.6-8.5); Neutrophils Percent Auto 70.7 % (45.5-73.1); Platelet Count Result 207 k/mm3 (150-375); Red Blood Count 3.54 M/mm3 (4.6-6.20); Red Cell Distribution Width 12.3 % (11.5-14.5); White Blood Count 8.5 K/mm3 (4.5-10.0)
[2022-08-17 21:18] LABS: Alanine Aminotransferase 16 U/L (6-50); Albumin Level 4.2 g/dL (3.5-5.1); Alkaline Phosphatase 81 U/L (38-126); Anion Gap 13 mmol/L (8-16); Aspartate Amino Transferase 27 U/L (17-59); Bilirubin,Total 0.4 mg/dL (0.2-1.3); Blood Urea Nitrogen 36 mg/dL (9-20); Calcium 8.2 mg/dL (8.4-10.2); Carbon Dioxide 25 mmol/L (22-30); Chloride 101 mmol/L (98-107); Estimated CRCL calculation 11 ml/min; Estimated Glomerular Filt Rate 12; Glucose 107 mg/dL (65-110); Potassium 3.8 mmol/L (3.4-5.0); Sodium 139 mmol/L (137-145)
[2022-08-17] MEDS: IPRATROPIUM BR 0.02% INH SOLN 0.5 MG/2.5 ML VIAL INHALATION (21:33)
[2022-08-17] MEDS: ALBUTEROL SULFATE NEB 2.5 MG/3 ML INH 10 MG INHALATION (21:33)
[2022-08-17 21:34] LABS: Partial Thromboplastin Time 26.8 SECONDS (22.3-36.8)
[2022-08-17 21:49] LABS: NT Pro B Type Natriuretic Pept 3350 pg/mL (5-100); Troponin I 0.064 ng/mL (0.000-0.034)
--- NOTE | 2022-08-17 22:18 | PM.IMHP ---
H&P: HPI History of Present Illness Date/Time: 08/17/22 22:18 Chief Complaint: shortness of breath Narrative: this is a 66-year-old male with past medical history significant for end-stage renal disease on hemodialysis, COPD,/ emphysema, current everyday smoker care, dyslipidemia, hypertension, seizure disorder, peripheral vascular disease. patient had dialysis today he presents to the emergency room due to shortness of breath, patient has a garbled speech he is unable to give much history but is complaining of a headache. patient just had been admitted and discharged from the hospital after being treated for COPD exacerbation.Preliminary workup was significant for Chest x-ray with lung infiltrates. Patient is been admitted for further evaluation management and treatment. Review of Systems Review of Systems: ROS unobtainable: Yes other ( Garbled speech, respiratory distress.) [facility] Past Medical History Medical History (Updated 08/18/22 @ 03:32 by Roxanna Brown MD) Cerebrovascular accident Chronic obstructive pulmonary disease Coronary artery disease COVID-19 (02/2022) End-stage renal disease on hemodialysis Friday, , Friday. Erythropoietin deficiency anemia Facial edema Hypertension Peripheral vascular disease Renal osteodystrophy Seizure-like activity Normal EEG in April 2022 though patient is on levetiracetam. Shortness of breath Tobacco abuse Surgical History Surgical History History of percutaneous coronary intervention Iliac stent. Cardiac stents. History of permanent cardiac pacemaker placement Family History Family History Father Cancer of lung Mother Heart failure Social History Social History Social History: Healthcare power of assistant attorney general: Von Donahue, son. Code status: Full code. Smoking packs per day: 2 Smoking cigarettes per day: 40.0 Years smoked: 40 Smoking pack-years: 80.00 Smoking status: Current every day smoker Tobacco type: cigarettes Second hand tobacco smoke exposure: No Alcohol intake: former Substance use: never Substance use type: does not use Lack of Transportation: No Lack of Food: Often True Current Housing: I Have Housing Concerned About Future Housing: YES Difficulty Paying Gas/Electric Bills: No Difficulty Paying for Meds: No Currently Unemployed: No Education: Grade School Difficulty w/ Childcare or Family Care: No Additional living arrangements comments: The patient lives in [place]. His son Von lives at home with him. Spiritual care concerns: No Meds Home Medications and Allergies Home Medications Medication Instructions Recorded Confirmed Type aspirin 81 mg tablet,delayed 81 mg PO DAILY 03/19/22 08/18/22 History release atorvastatin 40 mg tablet (Lipitor) 40 mg PO DAILY 03/19/22 08/18/22 History divalproex 500 mg tablet,extended 500 mg PO BID 03/19/22 08/18/22 History release 24 hr famotidine 20 mg tablet 20 mg PO HS 03/19/22 08/18/22 History nifedipine 90 mg tablet,extended 90 mg PO DAILY 03/19/22 08/18/22 History release oxybutynin chloride 10 mg 10 mg PO DAILY 03/19/22 08/18/22 History tablet,extended release 24 hr sodium bicarbonate 650 mg tablet 650 mg PO TID 03/19/22 08/18/22 History umeclidinium 62.5 mcg/actuation 1 inh inhalation DAILY 03/24/22 08/18/22 History blister powder for inhalation (Incruse Ellipta) fluticasone 500 mcg-salmeterol 50 1 inh inhalation BID 04/24/22 08/18/22 History mcg/dose blistr powdr for inhalation (Advair Diskus) isosorbide mononitrate 30 mg 30 mg PO DAILY 05/04/22 08/18/22 History tablet,extended release 24 hr levetiracetam 250 mg tablet 250 mg PO Q12HR #60 tabs 05/10/22 08/18/22 Rx lisinopril 20 mg tablet 40 mg PO QAM #30 tabs 05/10/22 08/18/22 Rx azit
[2022-08-17 22:31] LABS: Influenza A QL RT-PCR Negative (Negative); Influenza B QL RT-PCR Negative (Negative); RSV RNA, RT-PCR Negative (Negative); SARS-CoV-2 RNA PCR Negative
[2022-08-18] VITALS (20 sets, daily range): BP systolic 119–166; BP diastolic 59–80; PULSE 77–112; RESP 16–22; TEMP 36.6–36.7; O2SAT 95–100
[2022-08-18 00:17] LABS: Troponin I 0.054 ng/mL (0.000-0.034)
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
[2022-08-18] MEDS: methylPREDNISolone SOD SUCC 125 MG VIAL 60 MG IV PUSH ×4 (01:57→17:13)
[2022-08-18 03:26] LABS: Troponin I 0.046 ng/mL (0.000-0.034)
[2022-08-18] MEDS: IPRATROPIUM BR 0.02% INH SOLN 0.5 MG/2.5 ML VIAL INHALATION (03:26)
[2022-08-18] MEDS: ALBUTEROL SULFATE NEB 2.5 MG/3 ML INH 5 MG INHALATION ×4 (03:26→20:51)
--- NOTE | 2022-08-18 04:27 | PC.NURSE ---
Pt came from ER with 1 IV site. posterior L arm. Starting infusing IV abx ordered that now verified. All scheduled for the same time. IV stops frequently when pt moves arm and changes position. Pt coughing, heart rate went up, pt states coughs up sputum frequently due to daily smoking habit. Pt gets out of bed on own, will not use call light.
[2022-08-18] MEDS: DIVALPROEX SODIUM ER 500 MG TAB.24H PO ×2 (09:54→17:13)
[2022-08-18] MEDS: ATORVASTATIN 40 MG TABLET PO (09:54)
[2022-08-18] MEDS: NIFEdipine 30 MG TAB.ER.24 90 MG PO (09:54)
[2022-08-18] MEDS: levETIRAcetam 250 MG TABLET PO ×2 (09:54→20:23)
[2022-08-18] MEDS: SODIUM BICARBONATE TAB 650 MG TABLET PO ×3 (09:55→17:13)
[2022-08-18] MEDS: ACETAMINOPHEN 500 MG TABLET 1000 MG PO ×3 (09:55→20:26)
[2022-08-18] MEDS: ISOSORBIDE MONONITRATE 30 MG TAB.ER.24H PO (09:55)
[2022-08-18] MEDS: lisinopriL 20 MG TABLET 40 MG PO (09:55)
[2022-08-18] MEDS: UMECLIDINIUM BROMIDE 62.5 MCG ELLIPTA 1 PUFF INHALATION (10:28)
[2022-08-18] MEDS: FLUTICASONE/SALMETEROL 230-21 MCG INHALER 1 PUFF 2 PUFF INHALATION ×2 (10:28→20:52)
--- NOTE | 2022-08-18 11:07 | PM.CNNEP ---
Assessment and Plan Assessment and plan (1) End-stage renal disease on hemodialysis: Code(s): N18.6 - End stage renal disease; Z99.2 - Dependence on renal dialysis Status: Chronic Assessment and Plan: The patient has end-stage renal disease. We will get a dialysis tomorrow. Because of staffing shortage is will leave him on Friday for now. (2) COPD, frequent exacerbations: Code(s): J44.1 - Chronic obstructive pulmonary disease with (acute) exacerbation Status: Acute Assessment and Plan: The patient has frequent exacerbations of COPD. I am sure this is partly responsible for his current shortness of breath. He is on supportive care per hospitalist. (3) Shortness of breath: Code(s): R06.02 - Shortness of breath Status: Acute Assessment and Plan: Shortness of breath is most likely multifactorial. He has COPD. He has mild volume issues as well. He is not on any oxygen however so I think we can wait until tomorrow for dialysis. We will take off what fluid we can tomorrow. (4) Cerebrovascular accident: Code(s): I63.9 - Cerebral infarction, unspecified Status: Acute Assessment and Plan: He has had several strokes. He is aphasic. (5) Hypertension: Code(s): I10 - Essential (primary) hypertension Status: Chronic Assessment and Plan: Blood pressure is moderately high. Will get him back on his outpatient medications He is on lisinopril and nifedipine. We will also take some fluid off tomorrow. (6) Tobacco dependence: Code(s): F17.200 - Nicotine dependence, unspecified, uncomplicated Status: Acute Assessment and Plan: Encouraged to stop smoking. (7) Renal osteodystrophy: Code(s): N25.0 - Renal osteodystrophy Status: Acute Assessment and Plan: Will check a phosphorus in the morning. (8) Erythropoietin deficiency anemia: Code(s): D63.1 - Anemia in chronic kidney disease Status: Acute Assessment and Plan: Hemoglobin is too high for EPO. Most likely this is because of his COPD/smoking. (9) Coronary artery disease: Code(s): I25.10 - Atherosclerotic heart disease of [place] coronary artery without angina pectoris Status: Acute Assessment and Plan: No chest pain History of Present Illness Reason for Consult Consult date: 08/18/22 Chief Complaint Chief complaint: copd exacerbation History of Present Illness Narrative: Renata Elmore is a very pleasant 58-year-old gentleman who has multiple medical problems including COPD, he still smokes, coronary disease, hypertension, hyperlipidemia, stroke, aphasia, anemia, renal osteodystrophy, and history of seizure like activity. The patient has been in out of this hospital with shortness of breath. Sometimes it is due to COPD and sometimes it is due to fluid. Last time he was in the hospital he was short of breath due to COPD exacerbation. His blood pressure was also fairly high but eventually came under control. He had a new stroke in the hospital which left him aphasic. It is fluent aphasia. He has babbling speech for the most part. Answering yes no questions is hard for him. Sure if it is a issue of patient's or if it is an issue of understanding. There is some intermittent evidence of fairly good understanding. And once during our interview he was able to say ?they did not dialyze me because I became angry ?. The patient went to dialysis yesterday and became upset apparently at something and so the dialysis nurses would not finish his dialysis (based on the statement above). He has been anxious and upset. He became short of breath and so came to the ER. In the ER he was evaluated. He is not hypoxic. He has not been having any chest pain. He has been coughing. No fever. X-ray shows mild changes consistent with fluid. He is not on any oxygen. Potassium was fine at 3.8. He was admitted. Sukhwinder
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
[2022-08-18 12:51] LABS: Hepatitis B Surface Antigen Negative (Negative)
[2022-08-18] MEDS: FAMOTIDINE 20 MG TABLET PO (20:23)
[2022-08-19] VITALS (18 sets, daily range): BP systolic 95–130; BP diastolic 48–56; PULSE 53–94; RESP 12–24; TEMP 36.5–37; O2SAT 92–97; BMI 19.1
[2022-08-19] MEDS: ALBUTEROL SULFATE NEB 2.5 MG/3 ML INH 5 MG INHALATION ×4 (01:25→21:39)
[2022-08-19] MEDS: methylPREDNISolone SOD SUCC 125 MG VIAL 60 MG IV PUSH ×3 (05:12→17:08)
[2022-08-19 06:02] LABS: Albumin Level 3.6 g/dL (3.5-5.1); Anion Gap 15 mmol/L (8-16); Blood Urea Nitrogen 50 mg/dL (9-20); Calcium 7.9 mg/dL (8.4-10.2); Carbon Dioxide 20 mmol/L (22-30); Chloride 99 mmol/L (98-107); Estimated CRCL calculation 9 ml/min; Estimated Glomerular Filt Rate 10; Glucose 125 mg/dL (65-110); Phosphorus 3.7 mg/dL (2.5-4.5); Potassium 3.7 mmol/L (3.4-5.0); Sodium 134 mmol/L (137-145)
[2022-08-19] MEDS: DIVALPROEX SODIUM ER 500 MG TAB.24H PO ×2 (08:21→16:44)
[2022-08-19] MEDS: NIFEdipine 30 MG TAB.ER.24 90 MG PO (08:21)
[2022-08-19] MEDS: ISOSORBIDE MONONITRATE 30 MG TAB.ER.24H PO (08:21)
[2022-08-19] MEDS: SODIUM BICARBONATE TAB 650 MG TABLET PO ×3 (08:21→16:44)
[2022-08-19] MEDS: levETIRAcetam 250 MG TABLET PO ×2 (08:21→20:00)
[2022-08-19] MEDS: ATORVASTATIN 40 MG TABLET PO (08:21)
[2022-08-19] MEDS: lisinopriL 20 MG TABLET 40 MG PO (08:22)
[2022-08-19] MEDS: FLUTICASONE/SALMETEROL 230-21 MCG INHALER 1 PUFF 2 PUFF INHALATION ×2 (08:25→21:39)
[2022-08-19] MEDS: UMECLIDINIUM BROMIDE 62.5 MCG ELLIPTA 1 PUFF INHALATION (08:25)
[2022-08-19] MEDS: ACETAMINOPHEN 500 MG TABLET 1000 MG PO ×2 (11:43→20:00)
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
--- NOTE | 2022-08-19 16:14 | PM.PNNEP ---
Progress Note: A&P Assessment and Plan (1) End-stage renal disease on hemodialysis: Code(s): N18.6 - End stage renal disease; Z99.2 - Dependence on renal dialysis Status: Chronic Assessment and Plan: The patient has end-stage renal disease. We will get a dialysis on Friday after all. Is a Friday patient. (2) COPD, frequent exacerbations: Code(s): J44.1 - Chronic obstructive pulmonary disease with (acute) exacerbation Status: Acute Assessment and Plan: The patient has frequent exacerbations of COPD. I am sure this is partly responsible for his current shortness of breath. He is on supportive care per hospitalist. (3) Shortness of breath: Code(s): R06.02 - Shortness of breath Status: Acute Assessment and Plan: Shortness of breath is most likely multifactorial. He has COPD. He has mild volume issues as well. He is not on any oxygen however so I think we can wait until tomorrow for dialysis. We will take off what fluid we can tomorrow. (4) Cerebrovascular accident: Code(s): I63.9 - Cerebral infarction, unspecified Status: Acute Assessment and Plan: He has had several strokes. He is aphasic. (5) Hypertension: Code(s): I10 - Essential (primary) hypertension Status: Chronic Assessment and Plan: Blood pressure has dropped. Only 95 now. Hold antihypertensives. We can give a little fluid as well. (6) Tobacco dependence: Code(s): F17.200 - Nicotine dependence, unspecified, uncomplicated Status: Acute Assessment and Plan: Encouraged to stop smoking. (7) Renal osteodystrophy: Code(s): N25.0 - Renal osteodystrophy Status: Acute Assessment and Plan: Phosphorus level is normal (8) Erythropoietin deficiency anemia: Code(s): D63.1 - Anemia in chronic kidney disease Status: Acute Assessment and Plan: Hemoglobin is too high for EPO. Most likely this is because of his COPD/smoking. (9) Coronary artery disease: Code(s): I25.10 - Atherosclerotic heart disease of [place] coronary artery without angina pectoris Status: Acute Assessment and Plan: No chest pain Subjective Date/time seen: 08/19/22 16:14 Interval history: Same will looks about the same today. He still has babbling speech. No acute distress. He seems to say that his hands hurt. Exam Narrative: WDWN in NAD skin no rash head ncat lungs clear bilaterally cor reg no rub abd BS+ nontender and soft ext no edema. Objective Data Vital Signs Vital Signs: Vital Signs - 24 hr 08/18/22 20:52 08/18/22 21:03 08/18/22 21:30 Temperature 36.7 C Pulse Rate 94 96 94 Respiratory Rate 20 20 20 Blood Pressure 119/69 Pulse Oximetry 100 Oxygen Delivery 08/18/22 20:00 08/19/22 00:00 08/19/22 01:25 Temperature Pulse Rate 94 87 81 Respiratory Rate 20 22 H Blood Pressure Pulse Oximetry 100 Oxygen Delivery Room Air 08/19/22 01:35 08/19/22 04:00 08/19/22 05:12 Temperature 36.5 C Pulse Rate 90 53 L 83 Respiratory Rate 22 H 17 Blood Pressure 124/56 L Pulse Oximetry 97 Oxygen Delivery 08/19/22 08:00 08/19/22 08:00 08/19/22 12:00 Temperature Pulse Rate 73 75 Respiratory Rate Blood Pressure Pulse Oximetry Oxygen Delivery Room Air 08/19/22 14:30 Temperature 37.0 C Pulse Rate 82 Respiratory Rate 14 Blood Pressure 95/50 L Pulse Oximetry 95 Oxygen Delivery Intake/Output Intake/Output: Intake & Output 08/16/22 08/17/22 08/18/22 08/19/22 23:59 23:59 23:59 23:59 Intake Total 100 2230 1160 Balance 100 2230 1160 Meds/Results Medications: Active Medications Generic Name Dose Route Start Last Admin Trade Name [place] PRN Reason Stop Dose Admin Acetaminophen 1,000 mg 08/18/22 08:18 08/19/22 11:43 Acetaminophen 500 Mg Tablet PO 1,000 mg Q6H PRN Administration Mild Pain (1-3) or
[2022-08-19] MEDS: DEXTROSE 5%/0.9% SOD CHL 1,000 ML 100 ML IV CONT (16:45)
[2022-08-19] MEDS: FAMOTIDINE 20 MG TABLET PO (19:59)
[2022-08-19 20:49] LABS: Vancomycin Random 7.4 ug/mL (10-20)
[2022-08-20] VITALS (20 sets, daily range): BP systolic 106–183; BP diastolic 60–95; PULSE 66–119; RESP 16–22; TEMP 35.5–37; O2SAT 96
[2022-08-20] MEDS: methylPREDNISolone SOD SUCC 125 MG VIAL 60 MG IV PUSH ×3 (00:12→16:40)
[2022-08-20] MEDS: ALBUTEROL SULFATE NEB 2.5 MG/3 ML INH 5 MG INHALATION (02:30)
[2022-08-20 05:29] LABS: Hematocrit 32.1 % (42.0-52.0); Hemoglobin 10.6 g/dL (14.0-18.0); Mean Corpuscular Hemoglobin 32.6 pg (26-34); Mean Corpuscular Volume 98.8 fl (80-100); Mean Platelet Volume 10.3 fl (7.4-10.4); Platelet Count Result 229 k/mm3 (150-375); Red Blood Count 3.25 M/mm3 (4.6-6.20); Red Cell Distribution Width 12.8 % (11.5-14.5); White Blood Count 14.6 K/mm3 (4.5-10.0)
[2022-08-20 05:33] LABS: Alanine Aminotransferase 18 U/L (6-50); Albumin Level 3.8 g/dL (3.5-5.1); Alkaline Phosphatase 72 U/L (38-126); Anion Gap 14 mmol/L (8-16); Aspartate Amino Transferase 20 U/L (17-59); Bilirubin,Total 0.3 mg/dL (0.2-1.3); Blood Urea Nitrogen 57 mg/dL (9-20); Carbon Dioxide 22 mmol/L (22-30); Chloride 99 mmol/L (98-107); Estimated CRCL calculation 9 ml/min; Estimated Glomerular Filt Rate 9; Glucose 144 mg/dL (65-110); Magnesium 2.4 mg/dL (1.6-2.3); Phosphorus 3.7 mg/dL (2.5-4.5); Potassium 3.9 mmol/L (3.4-5.0); Sodium 135 mmol/L (137-145)
--- NOTE | 2022-08-20 06:04 | PM.PNNEP ---
Progress Note: A&P Assessment and Plan (1) End-stage renal disease on hemodialysis: Code(s): N18.6 - End stage renal disease; Z99.2 - Dependence on renal dialysis Status: Chronic Assessment and Plan: The patient has end-stage renal disease. Dialysis due today. Will remove some fluid. (2) COPD, frequent exacerbations: Code(s): J44.1 - Chronic obstructive pulmonary disease with (acute) exacerbation Status: Acute Assessment and Plan: The patient has frequent exacerbations of COPD. I am sure this is partly responsible for his current shortness of breath. He is on supportive care per hospitalist. (3) Shortness of breath: Code(s): R06.02 - Shortness of breath Status: Acute Assessment and Plan: Shortness of breath is most likely multifactorial. He has COPD. He has mild volume issues as well. Will remove fluid today on dialysis. (4) Cerebrovascular accident: Code(s): I63.9 - Cerebral infarction, unspecified Status: Acute Assessment and Plan: He has had several strokes. He is aphasic. (5) Hypertension: Code(s): I10 - Essential (primary) hypertension Status: Chronic Assessment and Plan: Blood pressure came back after fluid resuscitation. Lisinopril held. He is still on nifedipine. Will see how he does on this alone. (6) Tobacco dependence: Code(s): F17.200 - Nicotine dependence, unspecified, uncomplicated Status: Acute Assessment and Plan: Encouraged to stop smoking. (7) Renal osteodystrophy: Code(s): N25.0 - Renal osteodystrophy Status: Acute Assessment and Plan: Phosphorus level is normal (8) Erythropoietin deficiency anemia: Code(s): D63.1 - Anemia in chronic kidney disease Status: Acute Assessment and Plan: Hemoglobin has dropped a little bit. It is now 10.6. Will give a single dose of EPO today. (9) Coronary artery disease: Code(s): I25.10 - Atherosclerotic heart disease of [place] coronary artery without angina pectoris Status: Acute Assessment and Plan: No chest pain Subjective Date/time seen: 08/20/22 06:04 Interval history: 08/20 Same will looks about the same today. He still has babbling speech. No acute distress. He seems to say that his hands hurt. 08/21 patient feels okay. slept well. he still has pain in the hands. he will talk with hospitalist. no sob or cp. Exam Narrative: WDWN in NAD skin no rash or sq nodules head ncat lungs clear bilaterally cor reg no rub abd BS+ nontender and soft ext no edema or cyanosis.. Objective Data Vital Signs Vital Signs: Vital Signs - 24 hr 08/19/22 08:28 08/19/22 08:00 08/19/22 08:00 Temperature Pulse Rate 87 73 Respiratory Rate 20 Blood Pressure Pulse Oximetry Oxygen Delivery Room Air 08/19/22 12:00 08/19/22 14:30 08/19/22 16:00 Temperature 37.0 C Pulse Rate 75 82 79 Respiratory Rate 14 Blood Pressure 95/50 L Pulse Oximetry 95 Oxygen Delivery 08/19/22 08:41 08/19/22 08:41 08/19/22 14:05 Temperature Pulse Rate 87 82 Respiratory Rate 18 22 H Blood Pressure Pulse Oximetry 92 Oxygen Delivery Room Air 08/19/22 14:22 08/19/22 20:43 08/19/22 21:40 Temperature 36.7 C Pulse Rate 85 73 94 Respiratory Rate 20 12 22 H Blood Pressure 130/48 L Pulse Oximetry 95 Oxygen Delivery 08/19/22 21:43 08/19/22 21:51 08/19/22 20:00 Temperature Pulse Rate 94 92 67 Respiratory Rate 24 H Blood Pressure Pulse Oximetry 94 Oxygen Delivery Room Air 08/20/22 02:30 08/20/22 00:00 08/20/22 04:00 Temperature Pulse Rate 89 83 73 Respiratory Rate 22 H Blood Pressure Pulse Oximetry Oxygen Delivery 08/20/22 05:29 Temperature 36.6 C Pulse Rate 88 Respiratory Rate 20 Blood Pressure 140/73 Pulse Oximetry 96 Oxygen Delivery Intake/Output Intake/Output: Intake
[2022-08-20] MEDS: ACETAMINOPHEN 500 MG TABLET 1000 MG PO ×2 (08:25→16:40)
[2022-08-20] MEDS: SODIUM BICARBONATE TAB 650 MG TABLET PO ×2 (08:25→16:41)
[2022-08-20] MEDS: ISOSORBIDE MONONITRATE 30 MG TAB.ER.24H PO (08:25)
[2022-08-20] MEDS: ATORVASTATIN 40 MG TABLET PO (08:25)
[2022-08-20] MEDS: NIFEdipine 30 MG TAB.ER.24 90 MG PO (08:26)
[2022-08-20] MEDS: DIVALPROEX SODIUM ER 500 MG TAB.24H PO ×2 (08:26→16:41)
[2022-08-20] MEDS: levETIRAcetam 250 MG TABLET PO (08:26)
[2022-08-20 10:36] LABS: Procalcitonin 0.3 ng/mL
--- NOTE | 2022-08-20 11:29 | PC.NURSE ---
pt to dialysis via bed
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
--- NOTE | 2022-08-20 15:43 | PC.NURSE ---
pt back to room from dialysis
[2022-08-20 16:23] LABS: Basophils Percent Auto 0.1 % (0.2-1.2); Hematocrit 34.7 % (42.0-52.0); Hemoglobin 11.7 g/dL (14.0-18.0); Immature Granulocyte Absolute 0.08 K/mm3 (0.00-0.031); Immature Granulocyte Percent A 0.5 % (0-0.5); Lymphocytes Absolute Auto 0.81 K/mm3 (0.9-3.2); Lymphocytes Percent Auto 5.3 % (18.3-44.2); Mean Corpuscular HGB Conc 33.7 g/dl (32-36); Mean Corpuscular Volume 97.7 fl (80-100); Mean Platelet Volume 10.1 fl (7.4-10.4); Monocytes Absolute Auto 0.9 K/mm3 (0.1-0.6); Monocytes Percent Auto 6.1 % (2.6-8.5); Neutrophils Absolute Auto 13.6 K/mm3 (1.3-6.7); Platelet Count Result 290 k/mm3 (150-375); Red Blood Count 3.55 M/mm3 (4.6-6.20); Red Cell Distribution Width 13.1 % (11.5-14.5); White Blood Count 15.4 K/mm3 (4.5-10.0)
== END 2022-08-20 18:10 | disposition home or self-care (01) | DRG 140 ==
LOC: ANHED 21:05 → ANH2MED 23:19
PROVIDERS: Emergency Medicine; Internal Medicine Critical Care Medicine; Internal Medicine Nephrology; Admitting Provider Internal Medicine; Emergency Provider Emergency Medicine; Visit Provider Student in an Organized Health Care Education/Training Program
DX: J43.9 Emphysema, unspecified (principal); J96.20 Acute and chronic respiratory failure, unspecified whether with hypoxia or hypercapnia; I12.0 Hypertensive chronic kidney disease with stage 5 chronic kidney disease or end stage renal disease; J81.1 Chronic pulmonary edema; N25.0 Renal osteodystrophy; N18.6 End stage renal disease; I69.320 Aphasia following cerebral infarction; Z20.822 Contact with and (suspected) exposure to COVID-19; Z99.2 Dependence on renal dialysis; F17.210 Nicotine dependence, cigarettes, uncomplicated; I25.10 Atherosclerotic heart disease of native coronary artery without angina pectoris; D63.1 Anemia in chronic kidney disease; I73.9 Peripheral vascular disease, unspecified; E78.5 Hyperlipidemia, unspecified; G40.909 Epilepsy, unspecified, not intractable, without status epilepticus; Z79.82 Long term (current) use of aspirin; Z86.16 Personal history of COVID-19; Z95.0 Presence of cardiac pacemaker; Z95.5 Presence of coronary angioplasty implant and graft; Z95.828 Presence of other vascular implants and grafts
CPT/HCPCS: 36415; 71045; 80053; 80069; 80202; 83735; 83880; 84100; 84145; 84484; 85025; 85027; 85610; 85730; 87040; 87340; 87637; 93005; 94640; 96365; 96366; 96375; 96376; 97161; 97165; 99285; A9270; G0257; G0378; J0131; J0456; J0692; J1644; J2930; J3370; J7030; J7042

== ENCOUNTER 2022-09-16 20:32 | Emergency (ER) | payer OTHER, SELFPAY ==
[2022-09-16] VITALS (13 sets, daily range): BP systolic 146–209; BP diastolic 74–133; PULSE 60–92; RESP 12–27; TEMP 36.5; O2SAT 98–100
--- NOTE | ~2022-09-16 | XR_ITS ---
EXAMINATION: XR chest 1V Exam Date/Time: 09/16/2022 21:10 HUMAN RESOURCES COMPENSATION ANALYST HISTORY: AMS. Pt seen for htn/near syncopal episode. Hx copd,cad,cva Comparison: None available. RESULT: Lines, tubes, and devices: Left chest pacer with intact leads. Dual lumen right IJ dual-lumen dialys is catheter terminating in the distal SVC. Lungs and pleura: Ill-defined hazy right infrahilar opacities. Chronic stable diffuse reticulonodula r opacities. Cardiomediastinal silhouette: Stable. Other: No acute osseous or upper abdominal finding. IMPRESSION: Right infrahilar opacities may reflect asymmetric edema or infection, overlying a background of chron ic bronchiolitis. Reviewed, dictated and finalized at location K. N RESOURCES COMPENSATION ANALYST IMPRESSION: Right infrahilar opacities may reflect asymmetric edema or infection, overlying a background of chronic bronchiolitis.
--- NOTE | ~2022-09-16 | CT_ITS ---
EXAMINATION: CT brain wo con DATE: 09/16/2022 21:10 INDICATION: Aphasia . TECHNIQUE: Computed tomography (CT) of the head was performed without intravenous contrast. The mA wa s adjusted according to patient size. Iterative reconstruction technique was employed. The dose-lengt h product was 605.33 mGy-cm. COMPARISON: 07/29/2022. FINDINGS: No acute intracranial hemorrhage or extra-axial fluid collection. No hydrocephalus, mass, or herniation. No acute ischemic infarct. Unremarkable dural venous sinus attenuation. No acute osseous abnormality. The aerated spaces are clear. Mild atrophy and chronic white matter change. Atherosclerotic intracranial calcification. Old focal p ontine and right cerebellar infarcts. Old left basal ganglia lacunar infarcts. IMPRESSION: No acute intracranial process. Reviewed, dictated and finalized at location K. ENVIRONMENTAL ENGINEER
--- NOTE | 2022-09-16 20:41 | ECG_ITS ---
Measurements Intervals [place] Rate: 73 P: 65 GA: 142 QRS: 46 QRSD: 94 T: 77 QT: 459 QTc: 508 Interpretive Statements SINUS RHYTHM LEFT VENTRICULAR HYPERTROPHY AND ST-T CHANGE ABNORMAL ECG COMPARED TO ECG 08/17/2022 20:45:13 LEFT VENTRICULAR HYPERTROPHY NOW PRESENT ST (T WAVE) DEVIATION NOW PRESENT Electronically Signed On 09-17-2022 17:42:01 LINUX SYSTEM ADMINISTRATOR by Jewel Payton M.D.
--- NOTE | 2022-09-16 20:45 | ED.GENADULT ---
HPI - General Adult General Chief complaint: Syncope Stated complaint: PRE-SYNCOPE, HTN Time Seen by Provider: 09/16/22 20:40 History of Present Illness HPI narrative: HPI limited due to patient's aphasia This is a 66-year-old male with past medical history of hypertension, end-stage renal disease on dialysis (TTS), aphasia status post CVA, who is brought in by EMS for hypertension and lightheadedness. Per EMS, the patient called for elevated blood pressure and lightheadedness. On arrival patient was oriented x3. His blood pressure was reported in the mid 200s systolic. He was given 10 labetalol IV. On arrival, EMS notes the patient speech now sounds garbled. Related Data Home Medications Medication Instructions Recorded Confirmed aspirin 81 mg tablet,delayed 81 mg PO DAILY 03/19/22 08/18/22 release atorvastatin 40 mg tablet (Lipitor) 40 mg PO DAILY 03/19/22 08/18/22 divalproex 500 mg tablet,extended 500 mg PO BID 03/19/22 08/18/22 release 24 hr famotidine 20 mg tablet 20 mg PO HS 03/19/22 08/18/22 nifedipine 90 mg tablet,extended 90 mg PO DAILY 03/19/22 08/18/22 release oxybutynin chloride 10 mg 10 mg PO DAILY 03/19/22 08/18/22 tablet,extended release 24 hr sodium bicarbonate 650 mg tablet 650 mg PO TID 03/19/22 08/18/22 umeclidinium 62.5 mcg/actuation 1 inh inhalation DAILY 03/24/22 08/18/22 blister powder for inhalation (Incruse Ellipta) fluticasone 500 mcg-salmeterol 50 1 inh inhalation BID 04/24/22 08/18/22 mcg/dose blistr powdr for inhalation (Advair Diskus) isosorbide mononitrate 30 mg 30 mg PO DAILY 05/04/22 08/18/22 tablet,extended release 24 hr Allergies Allergy/AdvReac Type Severity Reaction Status Date / Time No Known Allergies Allergy Verified 09/16/22 20:47 Review of Systems Review of Systems: Unable to obtain review of systems due to aphasia PMFSH Past Medical History Medical History Cerebrovascular accident Chronic obstructive pulmonary disease Coronary artery disease COVID-19 (02/2022) End-stage renal disease on hemodialysis Friday, , Friday. Erythropoietin deficiency anemia Facial edema Hypertension Peripheral vascular disease Renal osteodystrophy Seizure-like activity Normal EEG in April 2022 though patient is on levetiracetam. Shortness of breath Tobacco abuse Surgical History Surgical History History of percutaneous coronary intervention Iliac stent. Cardiac stents. History of permanent cardiac pacemaker placement Family History Family History Father Cancer of lung Mother Heart failure Social History Social History Social History: Healthcare power of staff attorney: Von Donahue, son. Code status: Full code. Smoking packs per day: 1 Smoking cigarettes per day: 20.0 Years smoked: 50 Smoking pack-years: 50.00 Smoking status: Heavy tobacco smoker Tobacco type: cigarettes Second hand tobacco smoke exposure: No Alcohol intake: former Substance use: never Substance use type: does not use Lack of Transportation: No Lack of Food: Often True Current Housing: I Have Housing Concerned About Future Housing: YES Difficulty Paying Gas/Electric Bills: No Difficulty Paying for Meds: No Currently Unemployed: No Education: Grade School Difficulty w/ Childcare or Family Care: No Additional living arrangements comments: The patient lives in [place]. His son Von lives at home with him. Spiritual care concerns: No Exam Narrative: GENERAL: Well-developed, thin, and in no acute distress. HEAD: Normocephalic, atraumatic. EYES: PERRLA and EOMI. ENT: Nares clear, no rhinorrhea or epistaxis. Mucous membranes moist. Oropharynx without tonsillar hypertrophy exudate or other lesion
[2022-09-16] MEDS: LABETALOL HCL INJ 100 MG/20 ML VIAL 20 MG IV PUSH (20:47)
[2022-09-16 21:03] LABS: Glucose Point of Care 131 mg/dl (65-105)
[2022-09-16 21:48] LABS: Basophils Absolute Auto 0.1 K/mm3 (0.0-0.1); Basophils Percent Auto 1.1 % (0.2-1.2); Hematocrit 36.7 % (42.0-52.0); Hemoglobin 12.5 g/dL (14.0-18.0); Immature Granulocyte Absolute 0.03 K/mm3 (0.00-0.031); Immature Granulocyte Percent A 0.4 % (0-0.5); Lymphocytes Absolute Auto 1.06 K/mm3 (0.9-3.2); Lymphocytes Percent Auto 12.5 % (18.3-44.2); Mean Corpuscular HGB Conc 34.1 g/dl (32-36); Mean Corpuscular Hemoglobin 32.3 pg (26-34); Mean Corpuscular Volume 94.8 fl (80-100); Mean Platelet Volume 10.5 fl (7.4-10.4); Monocytes Absolute Auto 0.3 K/mm3 (0.1-0.6); Monocytes Percent Auto 3.3 % (2.6-8.5); Neutrophils Percent Auto 82.7 % (45.5-73.1); Platelet Count Result 314 k/mm3 (150-375); Red Blood Count 3.87 M/mm3 (4.6-6.20); Red Cell Distribution Width 12.3 % (11.5-14.5); White Blood Count 8.5 K/mm3 (4.5-10.0)
[2022-09-16 21:59] LABS: INR 1.1; Prothrombin Time 13.8 Seconds (11.1-14.7)
[2022-09-16 22:00] LABS: Ethanol < 10 mg/dL (<10)
[2022-09-16 22:02] LABS: Alanine Aminotransferase 15 U/L (6-50); Albumin Level 4.6 g/dL (3.5-5.1); Alkaline Phosphatase 111 U/L (38-126); Anion Gap 10 mmol/L (8-16); Aspartate Amino Transferase 25 U/L (17-59); Bilirubin,Total 0.4 mg/dL (0.2-1.3); Blood Urea Nitrogen 19 mg/dL (9-20); Calcium 8.8 mg/dL (8.4-10.2); Carbon Dioxide 30 mmol/L (22-30); Chloride 96 mmol/L (98-107); Estimated CRCL calculation 11 ml/min; Estimated Glomerular Filt Rate 17; Glucose 127 mg/dL (65-110); Potassium 3.3 mmol/L (3.4-5.0); Sodium 136 mmol/L (137-145)
[2022-09-16 22:17] LABS: Troponin I 0.044 ng/mL (0.000-0.034)
[2022-09-16 22:42] LABS: Add Urine Microscopic? YES; Appearance Urine Clear (Clear); Bilirubin Urine Negative (Negative); Blood Urine Trace-Intact (Negative); Color Urine Light Yellow (Yellow); Glucose Urine UA Negative (Negative); Ketones Urine Trace mg/dL (Negative); Leukocyte Esterase Ur Negative LEU/UL (Negative); Nitrate Urine Negative (Negative); Protein Urine 2+ mg/dL (Negative); Specific Grav Ur 1.015 (1.001-1.035); Urobilinogen Urine 0.2 mg/dL (<2.0); pH Urine 8.5 (5.0-9.0)
[2022-09-16] MEDS: hydrALAZINE HCL 50 MG TABLET PO (22:49)
[2022-09-16 22:58] LABS: Amphetamine Screen Urine Negative (Negative); Barbiturate Screen Urine Negative (Negative); Benzodiazepines Screen Urine Negative (Negative); Cannabinoid Screen Urine Positive (Negative); Cocaine Screen Urine Negative (Negative); Methadone Screen Urine Negative (Negative); Opiate Screen Urine Negative (Negative); Phencyclidine Screen Urine Negative (Negative)
[2022-09-16 23:02] LABS: Bacteria Urine Trace /hpf; Squamous Epithelial Cell Urine Rare /hpf (Few); WBC Urine 0-3 /hpf
[2022-09-16 23:18] LABS: Influenza A QL RT-PCR Negative (Negative); Influenza B QL RT-PCR Negative (Negative); RSV RNA, RT-PCR Negative (Negative); SARS-CoV-2 RNA PCR Negative
[2022-09-17] VITALS: BP 142/82; PULSE 78; RESP 22; O2SAT 99
[2022-09-17 00:30] VITALS: BP 140/84; PULSE 70; RESP 21; O2SAT 99
[2022-09-17 01:19] VITALS: BP 143/88; PULSE 76; RESP 26; O2SAT 99
--- NOTE | 2022-09-17 02:25 | PC.NURSE ---
Pt dressed and staff attempting to find patient a ride at this time. Pt son not answering and pt states son doesn't have a car.
--- NOTE | 2022-09-17 03:37 | PC.NURSE ---
called cab for pt. Cab will be here in approx 20 mins
--- NOTE | 2022-09-17 04:00 | PC.NURSE ---
Patient given a cab voucher for transport home. Unable to reach patients son.
== END 2022-09-17 04:00 | disposition home or self-care (01) ==
PROVIDERS: Emergency Provider Preventive Medicine Aerospace Medicine
DX: I16.0 Hypertensive urgency (principal); I69.920 Aphasia following unspecified cerebrovascular disease; Z20.822 Contact with and (suspected) exposure to COVID-19; I12.0 Hypertensive chronic kidney disease with stage 5 chronic kidney disease or end stage renal disease; N18.6 End stage renal disease; Z99.2 Dependence on renal dialysis; D63.1 Anemia in chronic kidney disease; I73.9 Peripheral vascular disease, unspecified; N25.0 Renal osteodystrophy; Z95.5 Presence of coronary angioplasty implant and graft; Z95.0 Presence of cardiac pacemaker; Z86.16 Personal history of COVID-19; F17.210 Nicotine dependence, cigarettes, uncomplicated; I51.7 Cardiomegaly; R94.31 Abnormal electrocardiogram [ECG] [EKG]
CPT/HCPCS: 36415; 51701; 70450; 71045; 80053; 80307; 81001; 82948; 84484; 85025; 85610; 87637; 93005; 96365; 96375; 99284; A9270; J0131

== ENCOUNTER 2022-09-26 13:04 | Emergency (ER) | payer OTHER, SELFPAY ==
[2022-09-26] VITALS (7 sets, daily range): BP systolic 158–191; BP diastolic 79–114; PULSE 60–97; RESP 18; TEMP 36.8; O2SAT 96–100
--- NOTE | ~2022-09-26 | CT_ITS ---
Non-contrast Head CT History: Headache COMPARISON: 09/16/2022 Technique: Axial non-contrast imaging of the brain was performed. Dose reduction technique was used on this scan by utilizing automated exposure control and iterative reconstruction technique. The dose -length product (DLP) was 681.00 mGy-cm. Findings: There is no evidence of intracranial hemorrhage, mass lesion, or acute infarct. Brain par enchyma appears normal. The ventricles and subarachnoid spaces are normal in size. The calvarium ap pears normal. The visualized paranasal sinuses and mastoid air cells are clear. Impression: No significant abnormality seen. Reviewed, dictated and finalized at location . GGER Impression: No significant abnormality seen.
--- NOTE | ~2022-09-26 | XR_ITS ---
Portable chest x-ray Comparison: 09/16/2022 Clinical History: CVA Findings: Right-sided central venous line is unchanged. Stable COPD pattern without consolidation or pleural effusion. Cardiomediastinal silhouette is stable, with pacemaker device. Bones and soft tis sues are unremarkable. Impression: COPD. Clear lungs. Stable support line and pacemaker device. Reviewed, dictated and finalized at location . 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 Clear lungs. Stable support line and pacemaker device.
--- NOTE | 2022-09-26 13:44 | ECG_ITS ---
Measurements Intervals [place] Rate: 91 P: 50 [place]: 116 QRS: 61 QRSD: 84 T: 83 QT: 412 QTc: 509 Interpretive Statements SINUS RHYTHM WITH SHORT CA INTERVAL LEFT VENTRICULAR HYPERTROPHY AND ST-T CHANGE BORDERLINE ST-T WAVE ABNORMALITY- HIGH LATERAL LEADS BASELINE WANDER- V6 BORDERLINE ECG COMPARED TO ECG 09/16/2022 20:50:37 NO SIGNIFICANT CHANGES Electronically Signed On 09-26-2022 13:54:19 REGISTERED PUBLIC HEALTH NURSE by Varun Ashraf D.O.
[2022-09-26 13:58] LABS: Glucose Point of Care 111 mg/dl (65-105)
[2022-09-26 14:06] LABS: Basophils Absolute Auto 0.1 K/mm3 (0.0-0.1); Basophils Percent Auto 0.8 % (0.2-1.2); Eosinophils Absolute Auto 0.1 K/mm3 (0-0.3); Eosinophils Percent Auto 1.2 % (0-4.4); Hematocrit 33.9 % (42.0-52.0); Hemoglobin 11.4 g/dL (14.0-18.0); Immature Granulocyte Absolute 0.03 K/mm3 (0.00-0.031); Immature Granulocyte Percent A 0.3 % (0-0.5); Lymphocytes Absolute Auto 1.59 K/mm3 (0.9-3.2); Lymphocytes Percent Auto 18.4 % (18.3-44.2); Mean Corpuscular HGB Conc 33.6 g/dl (32-36); Mean Corpuscular Hemoglobin 31.8 pg (26-34); Mean Corpuscular Volume 94.7 fl (80-100); Mean Platelet Volume 9.8 fl (7.4-10.4); Monocytes Absolute Auto 0.6 K/mm3 (0.1-0.6); Monocytes Percent Auto 7.1 % (2.6-8.5); Neutrophils Absolute Auto 6.2 K/mm3 (1.3-6.7); Neutrophils Percent Auto 72.2 % (45.5-73.1); Platelet Count Result 274 k/mm3 (150-375); Red Blood Count 3.58 M/mm3 (4.6-6.20); Red Cell Distribution Width 12.4 % (11.5-14.5); White Blood Count 8.6 K/mm3 (4.5-10.0)
[2022-09-26 14:14] LABS: Alanine Aminotransferase 17 U/L (6-50); Albumin Level 4.3 g/dL (3.5-5.1); Alkaline Phosphatase 93 U/L (38-126); Anion Gap 9 mmol/L (8-16); Aspartate Amino Transferase 23 U/L (17-59); Bilirubin,Total 0.5 mg/dL (0.2-1.3); Blood Urea Nitrogen 22 mg/dL (9-20); Calcium 8.9 mg/dL (8.4-10.2); Carbon Dioxide 30 mmol/L (22-30); Chloride 98 mmol/L (98-107); Estimated CRCL calculation 15 ml/min; Estimated Glomerular Filt Rate 15; Glucose 97 mg/dL (65-110); Potassium 3.4 mmol/L (3.4-5.0); Sodium 137 mmol/L (137-145)
[2022-09-26 14:23] LABS: Prothrombin Time 12.5 Seconds (11.1-14.7)
[2022-09-26 14:24] LABS: Partial Thromboplastin Time 28.1 SECONDS (22.3-36.8)
[2022-09-26 14:33] LABS: Troponin I 0.042 ng/mL (0.000-0.034)
--- NOTE | 2022-09-26 14:34 | ED.GENADULT ---
HPI - General Adult General Chief complaint: Recheck/Abnormal Lab/Rx Stated complaint: htn Time Seen by Provider: 09/26/22 14:33 Source: EMS Mode of arrival: EMS History of Present Illness HPI narrative: Patient is 66 years old white male came to the emergency room by ambulance for evaluation of headache and hypertension. Patient speaks gibberish on arrival to the emergency room. Unable to get any history whatsoever. You according to his past medical history, patient was seen in our emergency room September 16, 2022 with similar symptoms. Patient had a history of hypertension, end-stage renal disorder on dialysis, aphasia status post CVA., COPD, coronary artery disease, anemia, facial edema, peripheral vascular disease, seizure-like activity, dyspnea, tobacco abuse. I was able to get hold of his son at 6:15 PM and is telling me that patient had dialysis yesterday, and went to his doctor today because of high blood pressure who referred him to our emergency room. Also is telling me that patient takes his medication on time and usually comes to us and then get better for 1 week then his blood pressure goes up again he declined the possibility of retirement placement. Related Data Home Medications Medication Instructions Recorded Confirmed aspirin 81 mg tablet,delayed 81 mg PO DAILY 03/19/22 08/18/22 release atorvastatin 40 mg tablet (Lipitor) 40 mg PO DAILY 03/19/22 08/18/22 divalproex 500 mg tablet,extended 500 mg PO BID 03/19/22 08/18/22 release 24 hr famotidine 20 mg tablet 20 mg PO HS 03/19/22 08/18/22 nifedipine 90 mg tablet,extended 90 mg PO DAILY 03/19/22 08/18/22 release oxybutynin chloride 10 mg 10 mg PO DAILY 03/19/22 08/18/22 tablet,extended release 24 hr sodium bicarbonate 650 mg tablet 650 mg PO TID 03/19/22 08/18/22 umeclidinium 62.5 mcg/actuation 1 inh inhalation DAILY 03/24/22 08/18/22 blister powder for inhalation (Incruse Ellipta) fluticasone 500 mcg-salmeterol 50 1 inh inhalation BID 04/24/22 08/18/22 mcg/dose blistr powdr for inhalation (Advair Diskus) isosorbide mononitrate 30 mg 30 mg PO DAILY 05/04/22 08/18/22 tablet,extended release 24 hr Allergies Allergy/AdvReac Type Severity Reaction Status Date / Time No Known Allergies Allergy Verified 09/16/22 20:47 Review of Systems Review of Systems: ROS unobtainable: Yes unobtainable due to medical condition [facility] Past Medical History Medical History Cerebrovascular accident Chronic obstructive pulmonary disease Coronary artery disease COVID-19 (02/2022) End-stage renal disease on hemodialysis Friday, , Friday. Erythropoietin deficiency anemia Facial edema Hypertension Peripheral vascular disease Renal osteodystrophy Seizure-like activity Normal EEG in April 2022 though patient is on levetiracetam. Shortness of breath Tobacco abuse Surgical History Surgical History History of percutaneous coronary intervention Iliac stent. Cardiac stents. History of permanent cardiac pacemaker placement Family History Family History Father Cancer of lung Mother Heart failure Social History Social History Social History: Healthcare power of criminal defense attorney: Von Donahue, son. Code status: Full code. Smoking packs per day: 1 Smoking cigarettes per day: 20.0 Years smoked: 50 Smoking pack-years: 50.00 Smoking status: Heavy tobacco smoker Tobacco type: cigarettes Second hand tobacco smoke exposure: No Alcohol intake: former Substance use: never Substance use type: does not use Lack of Transportation: No Lack of Food: Often True Current Housing: I Have Housing Concerned About Future Housing: YES Difficulty Paying Gas/Electric Bills: No Difficulty Paying for Meds: No Currently Unem
[2022-09-26 17:05] LABS: Lactic Acid Reflex 1.3 mmol/L (0.7-2.0)
[2022-09-26 17:08] LABS: Lipase 110 U/L (23-300)
[2022-09-26 17:19] LABS: Amphetamine Screen Urine Negative (Negative); Barbiturate Screen Urine Negative (Negative); Benzodiazepines Screen Urine Negative (Negative); Cannabinoid Screen Urine Negative (Negative); Cocaine Screen Urine Negative (Negative); Methadone Screen Urine Negative (Negative); Opiate Screen Urine Negative (Negative); Phencyclidine Screen Urine Negative (Negative)
[2022-09-26] MEDS: ONDANSETRON INJ 4 MG/2 ML VIAL IV PUSH (17:48)
[2022-09-26] MEDS: MORPHINE SULFATE (*CRX) 4 MG/ML INJ IV PUSH (17:48)
[2022-09-26] MEDS: LABETALOL HCL INJ 100 MG/20 ML VIAL 20 MG IV PUSH (18:15)
== END 2022-09-26 21:45 | disposition home or self-care (01) ==
PROVIDERS: Emergency Medicine; Emergency Provider Emergency Medicine
DX: N17.9 Acute kidney failure, unspecified (principal); I12.0 Hypertensive chronic kidney disease with stage 5 chronic kidney disease or end stage renal disease; R51.9 Headache, unspecified; R79.89 Other specified abnormal findings of blood chemistry; N18.6 End stage renal disease; D63.1 Anemia in chronic kidney disease; N25.0 Renal osteodystrophy; I69.920 Aphasia following unspecified cerebrovascular disease; I25.10 Atherosclerotic heart disease of native coronary artery without angina pectoris; J44.9 Chronic obstructive pulmonary disease, unspecified; I73.9 Peripheral vascular disease, unspecified; F17.210 Nicotine dependence, cigarettes, uncomplicated; Z99.2 Dependence on renal dialysis; Z95.5 Presence of coronary angioplasty implant and graft; Z95.0 Presence of cardiac pacemaker; Z86.16 Personal history of COVID-19; Z79.82 Long term (current) use of aspirin
CPT/HCPCS: 36415; 70450; 71045; 80053; 80165; 80307; 82948; 83605; 83690; 84484; 85025; 85610; 85730; 93005; 96374; 96375; 99284; J2270; J2405

== ENCOUNTER 2022-11-27 11:47 | Emergency (ER) | payer OTHER, SELFPAY ==
[2022-11-27] VITALS (22 sets, daily range): BP systolic 198–236; BP diastolic 103–147; PULSE 60–91; RESP 12–38; TEMP 37.3; O2SAT 97–100
--- NOTE | 2022-11-27 12:06 | ECG_ITS ---
Measurements Intervals [place] Rate: 76 P: 54 [place]: 142 QRS: 36 QRSD: 94 T: 107 QT: 459 QTc: 516 Interpretive Statements SINUS RHYTHM LEFT VENTRICULAR HYPERTROPHY AND ST-T CHANGE BORDERLINE ST-T WAVE ABNORMALITY- HIGH LATERAL LEADS BASELINE ARTIFACT- V4 BORDERLINE ECG COMPARED TO ECG 09/26/2022 13:50:18 NO SIGNIFICANT CHANGES Electronically Signed On 11-27-2022 12:41:53 GROCERY DEPARTMENT MANAGER by Varun Ashraf D.O.
[2022-11-27 12:21] LABS: Basophils Absolute Auto 0.1 K/mm3 (0.0-0.1); Basophils Percent Auto 0.8 % (0.2-1.2); Eosinophils Absolute Auto 0.1 K/mm3 (0-0.3); Eosinophils Percent Auto 1.3 % (0-4.4); Hematocrit 37.9 % (42.0-52.0); Hemoglobin 12.7 g/dL (14.0-18.0); Immature Granulocyte Absolute 0.03 K/mm3 (0.00-0.031); Immature Granulocyte Percent A 0.3 % (0-0.5); Lymphocytes Percent Auto 20.2 % (18.3-44.2); Mean Corpuscular HGB Conc 33.5 g/dl (32-36); Mean Corpuscular Hemoglobin 32.9 pg (26-34); Mean Corpuscular Volume 98.2 fl (80-100); Mean Platelet Volume 10.7 fl (7.4-10.4); Monocytes Absolute Auto 0.5 K/mm3 (0.1-0.6); Monocytes Percent Auto 5.3 % (2.6-8.5); Neutrophils Absolute Auto 6.8 K/mm3 (1.3-6.7); Neutrophils Percent Auto 72.1 % (45.5-73.1); Platelet Count Result 244 k/mm3 (150-375); Red Blood Count 3.86 M/mm3 (4.6-6.20); Red Cell Distribution Width 11.9 % (11.5-14.5); White Blood Count 9.4 K/mm3 (4.5-10.0)
[2022-11-27 12:32] LABS: Alanine Aminotransferase 17 U/L (6-50); Albumin Level 4.4 g/dL (3.5-5.1); Alkaline Phosphatase 82 U/L (38-126); Anion Gap 9 mmol/L (8-16); Aspartate Amino Transferase 27 U/L (17-59); Bilirubin,Total 0.7 mg/dL (0.2-1.3); Blood Urea Nitrogen 37 mg/dL (9-20); Calcium 8.5 mg/dL (8.4-10.2); Carbon Dioxide 27 mmol/L (22-30); Chloride 98 mmol/L (98-107); Estimated CRCL calculation 10 ml/min; Estimated Glomerular Filt Rate 10; Glucose 100 mg/dL (65-110); INR 1.1; Partial Thromboplastin Time 27.9 SECONDS (22.3-36.8); Prothrombin Time 13.4 Seconds (11.1-14.7); Sodium 134 mmol/L (137-145)
--- NOTE | 2022-11-27 12:47 | PC.NURSE ---
Attempted to straight cath pt with no urine return.
--- NOTE | 2022-11-27 13:09 | PC.NURSE ---
Addendum entered by Lydia Parrish RN 11/27/22 13:10: Pt has equal sanitation lead and moving legs equally at this time. pt moving face symmetrically bilaterally. Original Note: Pt has garbled speech, relaying and pushing on L lower abdomen/groin stating that it hurts.
[2022-11-27 13:18] LABS: Glucose Point of Care 94 mg/dl (65-105)
--- NOTE | 2022-11-27 14:15 | ED.AMS ---
HPI - Altered Mental Status General Chief Complaint: Altered Mental Status Stated Complaint: ams from dialysis Time Seen by Provider: 11/27/22 13:19 History of Present Illness HPI narrative: Patient is a 67-year-old male with a history of ESRD on dialysis (MWF) presenting with garbled speech. Patient was reportedly sent from dialysis after he was noted to have garbled speech. Patient has a history of baseline severe dysarthria/aphasia. Currently, patient denies complaints. Shakes his head no to chest pain, abdominal pain, shortness of breath, cough, nausea or vomiting. Patient's son was reached by telephone. He states that the patient lives with him. States that he often has episodes of worsening aphasia and dysarthria when he goes to dialysis. Denies any recent symptoms or complaints or abnormal behaviors. Related Data Home Medications Medication Instructions Recorded Confirmed aspirin 81 mg tablet,delayed 81 mg PO DAILY 03/19/22 08/18/22 release atorvastatin 40 mg tablet (Lipitor) 40 mg PO DAILY 03/19/22 08/18/22 divalproex 500 mg tablet,extended 500 mg PO BID 03/19/22 08/18/22 release 24 hr famotidine 20 mg tablet 20 mg PO HS 03/19/22 08/18/22 nifedipine 90 mg tablet,extended 90 mg PO DAILY 03/19/22 08/18/22 release oxybutynin chloride 10 mg 10 mg PO DAILY 03/19/22 08/18/22 tablet,extended release 24 hr sodium bicarbonate 650 mg tablet 650 mg PO TID 03/19/22 08/18/22 umeclidinium 62.5 mcg/actuation 1 inh inhalation DAILY 03/24/22 08/18/22 blister powder for inhalation (Incruse Ellipta) fluticasone 500 mcg-salmeterol 50 1 inh inhalation BID 04/24/22 08/18/22 mcg/dose blistr powdr for inhalation (Advair Diskus) isosorbide mononitrate 30 mg 30 mg PO DAILY 05/04/22 08/18/22 tablet,extended release 24 hr Allergies Allergy/AdvReac Type Severity Reaction Status Date / Time No Known Allergies Allergy Verified 11/27/22 11:56 Review of Systems Review of Systems: All systems reviewed & are unremarkable except as noted in HPI and below PMFSH Past Medical History Medical History Cerebrovascular accident Chronic obstructive pulmonary disease Coronary artery disease COVID-19 (02/2022) End-stage renal disease on hemodialysis Friday, , Friday. Erythropoietin deficiency anemia Facial edema Hypertension Peripheral vascular disease Renal osteodystrophy Seizure-like activity Normal EEG in April 2022 though patient is on levetiracetam. Shortness of breath Tobacco abuse Surgical History Surgical History History of percutaneous coronary intervention Iliac stent. Cardiac stents. History of permanent cardiac pacemaker placement Family History Family History Father Cancer of lung Mother Heart failure Social History Social History Social History: Healthcare power of deputy commonwealth's attorney: Von Donahue, son. Code status: Full code. Smoking packs per day: 1 Smoking cigarettes per day: 20.0 Years smoked: 50 Smoking pack-years: 50.00 Smoking status: Heavy tobacco smoker Tobacco type: cigarettes Second hand tobacco smoke exposure: No Alcohol intake: former Substance use: never Substance use type: does not use Lack of Transportation: No Lack of Food: Often True Current Housing: I Have Housing Concerned About Future Housing: YES Difficulty Paying Gas/Electric Bills: No Difficulty Paying for Meds: No Currently Unemployed: No Education: Grade School Difficulty w/ Childcare or Family Care: No Additional living arrangements comments: The patient lives in [place]. His son Von lives at home with him. Spiritual care concerns: No Exam Narrative: GENERAL: Chronically ill-appearing elderly gentleman sleeping comfortably
--- NOTE | 2022-11-27 14:53 | PC.NURSE ---
Pt resting comfortably, no changes to arrival. erp aware of hypertension
[2022-11-27 15:17] LABS: Appearance Urine Clear (Clear); Bilirubin Urine Negative (Negative); Blood Urine 1+ (Negative); Color Urine Yellow (Yellow); Glucose Urine UA Negative (Negative); Ketones Urine Negative (Negative); Leukocyte Esterase Ur Negative LEU/UL (Negative); Nitrate Urine Negative (Negative); Protein Urine 2+ mg/dL (Negative); Specific Grav Ur 1.015 (1.001-1.035); Urobilinogen Urine 0.2 mg/dL (<2.0); pH Urine 7.5 (5.0-9.0)
[2022-11-27 15:25] LABS: Add Urine Microscopic? YES
[2022-11-27 15:26] LABS: Squamous Epithelial Cell Urine Few /hpf (Few)
[2022-11-27 15:27] LABS: Bacteria Urine None seen /hpf; RBC Urine 0-2 /hpf (0-2); WBC Urine 0-5 /hpf (0-3)
--- NOTE | 2022-11-27 15:27 | PC.NURSE ---
per erp, no interventions for this pt. made aware of bp and double checked we do not feel a need for interventions. per erp this is baseline and pt will be discharged home
== END 2022-11-27 16:54 | disposition home or self-care (01) ==
PROVIDERS: Emergency Medicine; Emergency Provider Emergency Medicine
DX: R47.01 Aphasia (principal); R47.1 Dysarthria and anarthria; I12.0 Hypertensive chronic kidney disease with stage 5 chronic kidney disease or end stage renal disease; N18.6 End stage renal disease; Z99.2 Dependence on renal dialysis; J44.9 Chronic obstructive pulmonary disease, unspecified; D63.1 Anemia in chronic kidney disease; Z86.16 Personal history of COVID-19; N25.0 Renal osteodystrophy; Z86.73 Personal history of transient ischemic attack (TIA), and cerebral infarction without residual deficits; Z95.5 Presence of coronary angioplasty implant and graft; Z95.0 Presence of cardiac pacemaker; F17.210 Nicotine dependence, cigarettes, uncomplicated; I51.7 Cardiomegaly; R94.31 Abnormal electrocardiogram [ECG] [EKG]
CPT/HCPCS: 36415; 80053; 81001; 82948; 85025; 85610; 85730; 93005; 99284

== ENCOUNTER 2023-03-01 16:12 | Inpatient (IN) | payer OTHER, SELFPAY ==
[2023-03-01] VITALS (19 sets, daily range): BP systolic 127–214; BP diastolic 54–124; PULSE 84–104; RESP 17–41; TEMP 35.9–36.9; O2SAT 95–100; BMI 18.3; BMI 19.0
--- NOTE | ~2023-03-01 | CT_ITS ---
EXAMINATION: CT brain wo con DATE: 03/05/23 INDICATION: Altered mental status. TECHNIQUE: Computed tomography (CT) of the head was performed without intravenous contrast. The mA wa s adjusted according to patient size. Iterative reconstruction technique was employed. The dose-lengt h product was 605 mGy-cm. COMPARISON: Head CT 03/02/2023 FINDINGS: There is a small old infarct in right cerebellum. There is an old lacunar infarct in the po ns. There is an old infarct in the left thalamus. There are scattered areas of low attenuation in the cerebral white matter, which is within normal limits for the patient's age. There is no intracranial hemorrhage, acute infarction, or abnormal intracranial mass lesion. The ventricles are normal in siz e. The orbits are normal. There is mild mucosal thickening in the paranasal sinuses. There are old fr acture deformities of the nasal bones. The mastoid air cells are normal. IMPRESSION: 1. 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 Reviewed, dictated and finalized at location A.
--- NOTE | ~2023-03-01 | CT_ITS ---
EXAMINATION: CT brain wo con DATE: 03/02/2023 01:29 INDICATION: Confusion. TECHNIQUE: Computed tomography (CT) of the head was performed without intravenous contrast. The dose- length product was 605.33 mGy-cm. Automated exposure control and iterative reconstruction technique w ere employed. COMPARISON: CT dated 09/26/2022 FINDINGS: generalized atrophy. There are scattered mild periventricular and subcortical white matter changes, most likely related to small vessel ischemic disease (microangiopathy). No ventriculomegaly or midline shift. Basilar cisterns are patent. No acute intracranial hemorrhage, infarction, mass or mass effect. Small mucous retention cyst left maxillary sinus. Mild mucosal thickening of the ethmoid sinuses. Mastoids are pneumatized. No depressed skull fractures. IMPRESSION: 1. No acute intracranial abnormality. 2: Chronic age-related findings. Reviewed, dictated and finalized at location A.
--- NOTE | ~2023-03-01 | XR_ITS ---
EXAMINATION: XR chest 1V DATE: 03/05/23 INDICATION: Shortness of breath. TECHNIQUE: A single frontal view of the chest was obtained. COMPARISON: chest single view 03/01/23 FINDINGS: There is mild scarring at left lung apex. There are Sweta B-lines, consistent with mild pu lmonary edema. No pneumonia, pleural effusion, or pneumothorax. The heart size is normal. There is a left chest wall pacer with leads in the right atrium and right ventricle. A right internal jugular ce ntral venous catheter is seen with tip at the superior cavoatrial junction. IMPRESSION: 1. Mild pulmonary edema. Reviewed, dictated and finalized at location A. IMPRESSION: 1. Mild pulmonary edema.
--- NOTE | ~2023-03-01 | CT_ITS ---
EXAMINATION: CTA brain carotid DATE: 03/06/2023 17:06 INDICATION: Stroke. TECHNIQUE: Computed tomographic angiography (CTA) of the head was performed with 100 mL Omnipaque-350 intravenous contrast. CTA of the neck was performed with intravenous contrast. Automated exposure co ntrol and iterative reconstruction technique were employed. The dose-length product was 1297.18 mGy-c m. Maximum intensity projection and volume rendered 3D-reconstructions were created by the technologi st on a separate workstation. COMPARISON: Head CT 03/06/2023 FINDINGS: HEAD CTA: There is a small old infarct in right cerebellum. There is an old lacunar infarct in the po ns. There are old infarcts in the left thalamus. There is no intracranial hemorrhage, acute infarctio n, or abnormal intracranial mass lesion. The ventricles are normal in size. There is mild mucosal thi ckening in the paranasal sinuses. The orbits are normal. The mastoid air cells are normal. Left verte bral artery is dominant. There is no significant stenosis of basilar artery or the posterior cerebral arteries. The posterior communicating arteries are normal. There is no significant stenosis of the i ntracranial internal carotid arteries or anterior or middle cerebral arteries. Anterior communicating artery is normal. There is no aneurysm. NECK CTA: There is moderate emphysema. Calcified mediastinal lymph nodes are consistent with old gran ulomatous disease. There are no pathologically enlarged lymph nodes. There is severe stenosis of prox imal right vertebral artery. There is plaque in the proximal internal carotid arteries. There is 0% s tenosis of the proximal right internal carotid artery relative to normal distal artery lumen diameter (NASCET criteria). There is 0% stenosis of the proximal left internal carotid artery relative to nor mal distal artery lumen diameter. There is a right internal jugular central venous catheter with tip at superior cavoatrial junction. There is a left chest wall pacer with leads in the right atrium and right ventricle. There is contrast in venous collaterals in left chest. There is severe cervical spon dylosis. IMPRESSION: 1. 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 2. No aneurysm or significant intracranial stenosis. 3. Severe stenosis of proximal right vertebral artery. 4. 0% stenosis of the proximal internal carotid arteries relative to normal distal artery lumen diam eters (NASCET criteria). Reviewed, dictated and finalized at location A. IMPRESSION: 1. 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 2. No aneurysm or significant intracranial stenosis. 3. Severe stenosis of proximal right vertebral artery. 4. 0% stenosis of the proximal internal carotid arteries relative to normal di stal artery lumen diameters (NASCET criteria).
--- NOTE | ~2023-03-01 | CT_ITS ---
EXAMINATION: CT brain wo con DATE: 03/06/2023 02:57 INDICATION: Mental status change. TECHNIQUE: Computed tomography (CT) of the head was performed without intravenous contrast. The mA wa s adjusted according to patient size. Iterative reconstruction technique was employed. The dose-lengt h product was 605.33 mGy-cm. COMPARISON: Head CT 03/05/2023 FINDINGS: There is a small old infarct in right cerebellum. There is an old lacunar infarct in the po ns. There is an old infarct in left thalamus. There is no intracranial hemorrhage, acute infarction, or abnormal intracranial mass lesion. The ventricles are normal in size. The orbits are normal. There is mild mucosal thickening in the paranasal sinuses. There are old fracture deformities of the nasal bones. The mastoid air cells are normal. IMPRESSION: 1. 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 Reviewed, dictated and finalized at location A.
--- NOTE | ~2023-03-01 | XR_ITS ---
EXAMINATION: XR chest 2V DATE: 03/04/2023 10:07 INDICATION: Cough. TECHNIQUE: Frontal and lateral views of the chest were obtained. COMPARISON: Chest single view 03/01/2023, CT abdomen and pelvis 07/29/2022 FINDINGS: There are lucencies and chronic interstitial opacities in the lungs, consistent with emphys ellie. No pleural effusion or pneumothorax. The heart size is normal. There is a left chest wall pacer with leads in the right atrium and right ventricle. A right internal jugular central venous catheter is seen with tip in the superior vena cava. IMPRESSION: 1. Emphysema. Reviewed, dictated and finalized at location A. IMPRESSION: 1. Emphysema.
--- NOTE | ~2023-03-01 | XR_ITS ---
EXAMINATION: XR chest 1V portable INDICATION: Chest pain TECHNIQUE: Portable AP chest at 1630 hours COMPARISON: 09/26/2022 FINDINGS: The lungs are hyperinflated but free of acute opacities. A right internal jugular catheter ends with its tip at the distal superior vena cava. The cardiomediastinal silhouette is normal. No pl eural effusion or pneumothorax. A dual-lead cardiac pacemaker of the left chest wall ends with leads in expected locations. IMPRESSION: 1. No acute cardiopulmonary abnormality. Reviewed, dictated and finalized at location F.
--- NOTE | 2023-03-01 16:19 | ED.SOB ---
HPI - SOB/Dyspnea General Chief Complaint: Shortness of Breath/Dyspnea Stated Complaint: SOB Time Seen by Provider: 03/01/23 16:18 Source: patient and EMS Mode of arrival: EMS Limitations: no limitations History of Present Illness HPI Narrative: 67 years old white male came to the hospital from home by ambulance complaining of increased shortness of breath started yesterday during dialysis. He denies any chest pain, fever, chills, nausea, vomiting, back pain. Patient does take his medication occasionally. Did not take his medication this morning. Patient had dialysis yesterday which was not completed because of lack of water. History of coronary stents, stroke, currently on aspirin, full code, tobacco dependence. Related Data Home Medications Medication Instructions Recorded Confirmed aspirin 81 mg tablet,delayed 81 mg PO DAILY 03/19/22 08/18/22 release atorvastatin 40 mg tablet (Lipitor) 40 mg PO DAILY 03/19/22 08/18/22 divalproex 500 mg tablet,extended 500 mg PO BID 03/19/22 08/18/22 release 24 hr famotidine 20 mg tablet 20 mg PO HS 03/19/22 08/18/22 nifedipine 90 mg tablet,extended 90 mg PO DAILY 03/19/22 08/18/22 release oxybutynin chloride 10 mg 10 mg PO DAILY 03/19/22 08/18/22 tablet,extended release 24 hr sodium bicarbonate 650 mg tablet 650 mg PO TID 03/19/22 08/18/22 umeclidinium 62.5 mcg/actuation 1 inh inhalation DAILY 03/24/22 08/18/22 blister powder for inhalation (Incruse Ellipta) fluticasone 500 mcg-salmeterol 50 1 inh inhalation BID 04/24/22 08/18/22 mcg/dose blistr powdr for inhalation (Advair Diskus) isosorbide mononitrate 30 mg 30 mg PO DAILY 05/04/22 08/18/22 tablet,extended release 24 hr Allergies Allergy/AdvReac Type Severity Reaction Status Date / Time No Known Allergies Allergy Verified 03/01/23 16:21 Review of Systems Review of Systems: All systems reviewed & are unremarkable except as noted in HPI and below PMFSH Past Medical History Medical History Cerebrovascular accident Chronic obstructive pulmonary disease Coronary artery disease COVID-19 (02/2022) End-stage renal disease on hemodialysis Friday, , Friday. Erythropoietin deficiency anemia Facial edema Hypertension Peripheral vascular disease Renal osteodystrophy Seizure-like activity Normal EEG in April 2022 though patient is on levetiracetam. Shortness of breath Tobacco abuse Surgical History Surgical History History of percutaneous coronary intervention Iliac stent. Cardiac stents. History of permanent cardiac pacemaker placement Family History Family History Father Cancer of lung Mother Heart failure Social History Social History Social History: Healthcare power of radiological technician: Von Donahue, son. Code status: Full code. Smoking packs per day: 1 Smoking cigarettes per day: 20.0 Years smoked: 50 Smoking pack-years: 50.00 Smoking status: Heavy tobacco smoker Tobacco type: cigarettes Second hand tobacco smoke exposure: No Alcohol intake: former Substance use: never Substance use type: does not use Lack of Transportation: No Lack of Food: Often True Current Housing: I Have Housing Concerned About Future Housing: YES Difficulty Paying Gas/Electric Bills: No Difficulty Paying for Meds: No Currently Unemployed: No Education: Grade School Difficulty w/ Childcare or Family Care: No Additional living arrangements comments: The patient lives in [place]. His son Von lives at home with him. Spiritual care concerns: No Exam Narrative: General appearance: Well-developed, well-nourished Skin: Normal color Head: Normocephalic, nontraumatic Eyes: Clear conjunctiva ENT: Oropharynx normal, ears normal, nose normal Neck
--- NOTE | 2023-03-01 16:25 | ECG_ITS ---
Measurements Intervals [place] Rate: 82 P: 65 CA: 133 QRS: 22 QRSD: 84 T: 117 QT: 377 QTc: 443 Interpretive Statements SINUS RHYTHM LEFT VENTRICULAR HYPERTROPHY AND ST-T CHANGE [VOLTAGE CRITERIA PLUS ST/T ABNORMALITY] COMPARED TO ECG 11/27/2022 12:16:31 NO SIGNIFICANT CHANGES Electronically Signed On 03-02-2023 8:29:59 CDT by Lady Francis M.D.
[2023-03-01 16:55] LABS: Basophils Absolute Auto 0.1 K/mm3 (0.0-0.1); Basophils Percent Auto 1.1 % (0.2-1.2); Eosinophils Absolute Auto 0.4 K/mm3 (0-0.3); Eosinophils Percent Auto 5.1 % (0-4.4); Hematocrit 33.6 % (42.0-52.0); Hemoglobin 11.1 g/dL (14.0-18.0); Immature Granulocyte Absolute 0.01 K/mm3 (0.00-0.031); Immature Granulocyte Percent A 0.1 % (0-0.5); Lymphocytes Absolute Auto 1.98 K/mm3 (0.9-3.2); Lymphocytes Percent Auto 24.6 % (18.3-44.2); Mean Corpuscular Hemoglobin 32.6 pg (26-34); Mean Corpuscular Volume 98.5 fl (80-100); Mean Platelet Volume 11.8 fl (7.4-10.4); Monocytes Absolute Auto 0.6 K/mm3 (0.1-0.6); Monocytes Percent Auto 7.8 % (2.6-8.5); Neutrophils Absolute Auto 4.9 K/mm3 (1.3-6.7); Neutrophils Percent Auto 61.3 % (45.5-73.1); Platelet Count Result 151 k/mm3 (150-375); Red Blood Count 3.41 M/mm3 (4.6-6.20); Red Cell Distribution Width 12.1 % (11.5-14.5); White Blood Count 8.1 K/mm3 (4.5-10.0)
[2023-03-01] MEDS: hydrALAZINE HCL 20 MG/ML VIAL IV PUSH ×2 (16:55→17:18)
[2023-03-01] MEDS: NITROGLYCERIN OINTMENT 1 INCH DOSE TRANSDERM (17:00)
[2023-03-01 17:06] LABS: Alanine Aminotransferase 17 U/L (6-50); Albumin Level 4.2 g/dL (3.5-5.1); Alkaline Phosphatase 56 U/L (38-126); Anion Gap 5 mmol/L (8-16); Aspartate Amino Transferase 29 U/L (17-59); Bilirubin,Total 0.7 mg/dL (0.2-1.3); Blood Urea Nitrogen 26 mg/dL (9-20); Calcium 9.4 mg/dL (8.4-10.2); Carbon Dioxide 36 mmol/L (22-30); Chloride 96 mmol/L (98-107); Estimated CRCL calculation 8 ml/min; Estimated Glomerular Filt Rate 9; Glucose 108 mg/dL (65-110); Potassium 3.7 mmol/L (3.4-5.0); Prothrombin Time 13.3 Seconds (11.1-14.7); Sodium 137 mmol/L (137-145)
[2023-03-01 17:28] LABS: NT Pro B Type Natriuretic Pept > 30000 pg/mL (19.9-100); Troponin I 0.083 ng/mL (0.000-0.034)
[2023-03-01] MEDS: FUROSEMIDE INJ 40 MG/4 ML VIAL IV PUSH (17:46)
[2023-03-01] MEDS: lisinopriL 20 MG TABLET 40 MG PO (18:11)
[2023-03-01] MEDS: NIFEdipine 30 MG TAB.ER.24 90 MG PO (18:12)
--- NOTE | 2023-03-01 20:41 | PM.IMHP ---
H&P: HPI History of Present Illness Date/Time: 03/01/23 20:41 Chief Complaint: Shortness of Narrative: this is a 67-year-old male patient who came to the emergency room complaining of shortness of breath during dialysis yesterday. The patient now has dialysis on Friday. The patient denied any chest pain fever or chills. No nausea vomiting or diarrhea. The patient told ED he takes all of his medications. However he did not take his medications this morning. The patient had dialysis yesterday but did not complete the full dialysis treatment. The patient is currently on oxygen at 2 L per nasal cannula and states he does not usually wear oxygen at home. Chest x-ray was read as no acute cardiopulmonary abnormality. H&H is 11.1 and 33.6. Which is his baseline. His BUN is 26 creatinine 6.3. Chloride is 96. his troponin is 0.083 which is troponin is always elevated. His BNP was greater than 30,000. the patient was given hydralazine, nitroglycerin, Apresoline, Procardia, lisinopril and Lasix. Nephrology has been consulted. The patient came to the hospital in hypertensive emergency. His blood pressure was noted to be 214/120. The patient stated he had not taken any of his medications today. The patient was given a multitude of medications in the emergency room. His blood pressure is now down to 127/54. Patient appears to be not very well controlled and his blood pressure appears to be high most the time.The patient is being admitted to observation Review of Systems Review of Systems: All systems reviewed & are unremarkable except as noted in HPI and below Constitutional: Constitutional: Reports as per HPI and Reports no additional constitutional complaints Eyes: Eyes: Reports as per HPI and Reports no additional eye complaints ENT: Reports system reviewed and no additional complaints, except as documented and Reports Normal hearing present Cardiovascular: Cardiovascular: Reports no additional cardiovascular complaints Respiratory: Respiratory: Reports no additional respiratory complaints and Reports no additional respiratory complaints Gastrointestinal: Gastrointestinal: Reports as per HPI and Reports no additional gastrointestinal complaints Musculoskeletal: Musculoskeletal: Reports no additional musculoskeletal complaints Integumentary/Breasts: Skin/Breast: Reports system reviewed and no additional complaints, except as docu and Reports as per HPI Neurologic: Reports system reviewed and no additional complaints, except as documented, Reports as per HPI and Reports Normal hearing present Psychiatric: Psychiatric: Reports no additional psychiatric complaints and Reports as per HPI Endocrine: Endocrine: Reports no additional endocrine complaints Hematologic/Lymphatic: Hematologic/Lymphatic: Reports no additional hematologic/lymphatic complaints Allergic/Immunologic: Allergic/Immunologic: Reports no additional allergic/immunologic complaints [facility] Past Medical History Medical History (Updated 03/01/23 @ 23:50 by Denae Hou NP) Cerebrovascular accident Chronic obstructive pulmonary disease Coronary artery disease COVID-19 (02/2022) Elevated troponin End-stage renal disease on hemodialysis Friday Erythropoietin deficiency anemia Facial edema GERD with esophagitis Hyperlipidemia Hypertension Obstructive sleep apnea Pacemaker Peripheral vascular disease Renal osteodystrophy Seizure-like activity Normal EEG in April 2022 though patient is on levetiracetam. Shortness of breath Tobacco abuse Surgical History Surgical History (Updated 03/01/23 @ 23:30 by Denae Hou NP) History of percutaneous coronary intervention Iliac stent. Cardiac stents. History of permanent cardiac pacemaker placement S/P hemodialysis catheter insertion Family History Family History Father Cancer of lung Mother Heart failure
[2023-03-01] MEDS: ACETAMINOPHEN 325 MG TABLET 650 MG PO (22:17)
[2023-03-01] MEDS: hydrALAZINE HCL 20 MG/ML VIAL 10 MG IV PUSH (22:52)
[2023-03-02] VITALS (16 sets, daily range): BP systolic 127–149; BP diastolic 66–86; PULSE 73–96; RESP 18–24; TEMP 36.1–36.3; O2SAT 93–100
--- NOTE | 2023-03-02 | ECG_ITS ---
Measurements Intervals [place] Rate: 98 P: 78 [place]: 112 QRS: 72 QRSD: 87 T: 93 QT: 353 QTc: 451 Interpretive Statements SINUS RHYTHM WITH SHORT [place] INTERVAL LEFT VENTRICULAR HYPERTROPHY AND ST-T CHANGE [VOLTAGE CRITERIA PLUS ST/T ABNORMALITY] COMPARED TO ECG 03/01/2023 16:32:45 NO SIGNIFICANT CHANGES Electronically Signed On 03-02-2023 8:37:00 CDT by Lady Francis M.D.
[2023-03-02] MEDS: levETIRAcetam 1000MG/NACL100ML 1,000 MG/100 ML BAG 400 MG IVPB (00:51)
[2023-03-02 01:14] LABS: Base Excess ABG 3.4 mEq/l (+/-2.0); Fractional Inspired Oxygen 32 %; HCO3 ABG 26.1 mEq/l (22.0-26.0); Oxygen Content ABG 16.4 %vol (16.0-22.0); Oxygen Saturation ABG 97.7 % (95.0-100.0); Oxyhemoglobin 95.9 % THb (90.0-100.0); PCO2 ABG 33.5 mmHg (35.0-45.0); PO2 FiO2 Ratio Arterial Blood 2.84 %; Total Hemoglobin 12.1 g/dL (12.0-18.0)
[2023-03-02 01:18] LABS: Device NASAL CANNULA; Modified Allen's Test Pass; Site Drawn RIGHT RADIAL
[2023-03-02] MEDS: traMADol HCL (*CRX) 25 MG TABLET PO (02:31)
[2023-03-02 02:36] LABS: Glucose Point of Care 110 mg/dl (65-105)
[2023-03-02 03:18] LABS: Appearance Urine Clear (Clear); Bacteria Urine None Seen /hpf; Bilirubin Urine Negative (Negative); Blood Urine Negative (Negative); Color Urine Yellow (Yellow); Glucose Urine UA Negative (Negative); Ketones Urine Negative (Negative); Leukocyte Esterase Ur Negative LEU/UL (Negative); Nitrate Urine Negative (Negative); Non Pathogenic Casts 0-2; Protein Urine 2+ mg/dL (Negative); RBC Urine 0-2 /hpf (0-2); Specific Grav Ur 1.008 (1.001-1.035); Squamous Epithelial Cell Urine None seen /hpf (Few); Urobilinogen Urine 0.2 mg/dL (<2.0); WBC Urine 0-5 /hpf; pH Urine 7.5 (5.0-9.0)
[2023-03-02 03:35] LABS: Add Urine Microscopic? YES
[2023-03-02] MEDS: ACETAMINOPHEN 325 MG TABLET 650 MG PO ×2 (03:44→20:37)
--- NOTE | 2023-03-02 06:11 | PM.EVENT ---
Event Note Event Note Event Note: Patient had been admitted earlier in the evening due to shortness of breath thought to be due to volume overload with only partial hemodialysis. Patient has a long history of noncompliance with his medications including his seizure medications. Nursing staff mention to me the patient had some chest pain and they performed a stat EKG. They requested that look at the EKG. EKG was unremarkable compared to prior. They also mentioned that they were concerned that the patient's behavior was bizarre. He initially started as alert orient x3 for the nursing staff. The patient would not cooperate with nursing staff regarding meds were care. They mention that the patient's blood pressures were markedly elevated with systolic pressures of 202/109. I requested a stat Accu-Chek be performed. When I arrived at the bedside the patient's glucose was greater than 100. As I was trying to talk to the patient get him to respond the patient was answering with words that had no relation to questions being asked. He was not speaking in full sentences he was only answering 1 word at a time. He did open his eyes on command but otherwise was not following commands. As I was attempting to listen to the patient's heart rate the patient did start having localized seizure-like activity to the right arm and face the activity lasted no more than 20 seconds. Patient did briefly become rigid following the right-sided activity and did not respond verbally for another minute or so. When the patient did he was again providing bizarre answers. He was only intermittently following commands. At that time I ordered stat dose of 1 g of Keppra. Also ordered Ativan x1 if needed for recurrent seizure lasting greater than 2 minutes or multiple shorter seizures. Ativan was not immediately given at that time. After the seizure the patient's blood pressures had normalized to 129/60. The patient was not tachycardic. His respiratory status was stable. Patient was having intermittent coughing. He did have periorbital edema noted. His periaortic orbital edema seemed to worsen as the patient was laying in the left some if lower position with head of the bed only about 10? elevated. Patient was not having any obvious orthopnea or paroxysmal nocturnal dyspnea. He was slightly tachypneic. No accessory muscle use. I had not evaluated the patient during this hospitalization. I did contact the nurse practitioner that had admitted the patient. She agreed that this was a change in the patient's behavior. She is cystectomy by ordering has stat CT of the brain to rule any acute intercranial process which was negative. A stat ABG was performed which demonstrated no significant acidosis. He did have some respiratory alkalosis noted which not surprising giving recent seizure. I suspect the patient's bizarre behavior was likely due to breakthrough seizure that had not been witnessed by staff. He subsequently had a 2nd seizure that witnessed. I gave a emergent dose of 1 g of Keppra. If the patient continues to refuse his seizure meds in the morning we may need switched seizure medications to IV formulation. Patient has never had EEG that actually captured said seizures. But on exam he definitely had a seizure and will treat as such. I requested nursing staff move the patient closer to the nurse's station and in peripheral into a room that has video monitoring so that I could watch if the patient has further seizure activity. Seizure precautions have been initiated. 45 minute spent in critical care activities Due to a high probability of clinically significant, life threatening deterioration, the patient required my highest level of preparedness to intervene emergently and I personally spent this critical care time directly and personally managing the patient. This critical care time included obtaining a history; examining the patient; pulse oximetry; ordering and review of teja
[2023-03-02 08:10] LABS: Basophils Absolute Auto 0.1 K/mm3 (0.0-0.1); Basophils Percent Auto 0.9 % (0.2-1.2); Eosinophils Absolute Auto 0.3 K/mm3 (0-0.3); Eosinophils Percent Auto 3.6 % (0-4.4); Hematocrit 31.7 % (42.0-52.0); Hemoglobin 10.7 g/dL (14.0-18.0); Immature Granulocyte Absolute 0.03 K/mm3 (0.00-0.031); Immature Granulocyte Percent A 0.4 % (0-0.5); Lymphocytes Absolute Auto 1.81 K/mm3 (0.9-3.2); Mean Corpuscular HGB Conc 33.8 g/dl (32-36); Mean Corpuscular Hemoglobin 33.4 pg (26-34); Mean Corpuscular Volume 99.1 fl (80-100); Mean Platelet Volume 11.6 fl (7.4-10.4); Monocytes Absolute Auto 0.6 K/mm3 (0.1-0.6); Monocytes Percent Auto 7.8 % (2.6-8.5); Neutrophils Absolute Auto 5.1 K/mm3 (1.3-6.7); Neutrophils Percent Auto 64.3 % (45.5-73.1); Platelet Count Result 157 k/mm3 (150-375); Red Cell Distribution Width 12.1 % (11.5-14.5); White Blood Count 7.9 K/mm3 (4.5-10.0)
--- NOTE | 2023-03-02 08:13 | PM.CNNEP ---
Assessment and Plan Assessment and plan (1) End stage renal disease: Code(s): N18.6 - End stage renal disease Status: Chronic Assessment and Plan: the patient has end-stage renal disease. He is due for dialysis tomorrow. Electrolytes are okay. Volume status looks okay. (2) Hypertension: Code(s): I10 - Essential (primary) hypertension Status: Chronic Assessment and Plan: Systolic in the emergency room was 214. This came down with medications. Since about midnight last night his blood pressures been ranging 127-147. I encouraged him to continue to take his blood pressure medicine every day. (3) Acute dyspnea: Code(s): R06.00 - Dyspnea, unspecified Status: Acute Assessment and Plan: The patient had shortness of breath yesterday in the emergency room. This was probably caused by his hypertension and increased afterload. He does not have much swelling so I do not think fluid is playing a large role here. We will take more fluid off with dialysis tomorrow. He does have COPD which could be contributing as well. (4) Seizure-like activity: Code(s): R56.9 - Unspecified convulsions Status: Acute Assessment and Plan: The patient had seizure-like activity today witnessed by Dr. Alston and the nurses. He also had some postictal symptoms as well. He was given his Keppra and I encouraged him to continue to take his seizure medications every day. (5) Chronic obstructive pulmonary disease: Code(s): J44.9 - Chronic obstructive pulmonary disease, unspecified Status: Acute Assessment and Plan: The patient has COPD. He continues to smoke. (6) Tobacco dependence: Code(s): F17.200 - Nicotine dependence, unspecified, uncomplicated Status: Acute Assessment and Plan: hopefully the patient will stop smoking. (7) Erythropoietin deficiency anemia: Code(s): D63.1 - Anemia in chronic kidney disease Status: Acute Assessment and Plan: Hemoglobin yesterday was 11.1. Is generally fairly generous for a dialysis patient most likely because of his COPD And sleep apnea leading to chronic intermittent hypoxia. (8) Renal osteodystrophy: Code(s): N25.0 - Renal osteodystrophy Status: Acute Assessment and Plan: will check a phosphorus level in the morning History of Present Illness Reason for Consult Consult date: 03/02/23 Chief Complaint Chief complaint: Uncontrolled Hypertension/Dialysis Patient History of Present Illness Narrative: Sachin is a very pleasant 67-year-old gentleman who has multiple medical problems including end-stage renal disease on dialysis to Wednesdays and Fridays, history of stroke, history of seizures, hypertension, renal osteodystrophy, anemia of chronic kidney disease, COPD, he continues to smoke, 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 Patient goes to dialysis 3 times a week on Wednesdays and Fridays. He went on Friday and signed off a little early. Friday he came in because he was short of breath. His blood pressure was very high over 200. He received hydralazine and his home medications and his blood pressure came down any became less short of breath. He was having no chest pain. No belly pain no nausea or vomiting. He takes his blood pressure medicines intermittently he says. When he feels like his blood pressure is high he takes it. They does not take it every day because he feels that causes his seizures. He also has history of a seizure disorder and takes to antiseizure medications. He is also noncompliant with these medications. He says they mess me up . early this morning the patient had 2 seizures. He was given Keppra IV x1 by Dr. Alston and he has not had any more seizures. This morning he feels better. He is not short of breath. He does have some oxyg
[2023-03-02 08:25] LABS: Alanine Aminotransferase 15 U/L (6-50); Albumin Level 3.9 g/dL (3.5-5.1); Alkaline Phosphatase 56 U/L (38-126); Anion Gap 8 mmol/L (8-16); Aspartate Amino Transferase 21 U/L (17-59); Bilirubin,Total 0.6 mg/dL (0.2-1.3); Blood Urea Nitrogen 29 mg/dL (9-20); Calcium 8.7 mg/dL (8.4-10.2); Carbon Dioxide 31 mmol/L (22-30); Chloride 96 mmol/L (98-107); Estimated CRCL calculation 7 ml/min; Estimated Glomerular Filt Rate 7; Glucose 89 mg/dL (65-110); Magnesium 2.1 mg/dL (1.6-2.3); Potassium 3.5 mmol/L (3.4-5.0); Sodium 135 mmol/L (137-145)
[2023-03-02 08:26] LABS: Lactic Acid Reflex 0.6 mmol/L (0.7-2.0)
[2023-03-02] MEDS: FLUTICASONE/SALMETEROL 230-21 MCG INHALER 1 PUFF 2 PUFF INHALATION ×2 (08:34→19:50)
[2023-03-02] MEDS: UMECLIDINIUM BROMIDE 62.5 MCG ELLIPTA 1 PUFF INHALATION (08:34)
[2023-03-02] MEDS: DIVALPROEX SODIUM ER 500 MG TAB.24H PO ×2 (09:57→20:39)
[2023-03-02] MEDS: levETIRAcetam 250 MG TABLET PO ×2 (09:57→20:40)
[2023-03-02] MEDS: lisinopriL 20 MG TABLET 40 MG PO (09:57)
[2023-03-02] MEDS: ISOSORBIDE MONONITRATE 30 MG TAB.ER.24H PO (09:57)
[2023-03-02] MEDS: ASPIRIN 81 MG ENTERIC TABLET PO (09:57)
[2023-03-02] MEDS: SODIUM BICARBONATE TAB 650 MG TABLET PO ×3 (09:57→16:42)
[2023-03-02] MEDS: predniSONE 20 MG TABLET 60 MG PO (09:58)
[2023-03-02] MEDS: ATORVASTATIN 40 MG TABLET PO (09:58)
[2023-03-02] MEDS: oxyBUTYnin CHLORIDE XL 5 MG TAB.ER.24 10 MG PO (09:58)
[2023-03-02] MEDS: NIFEdipine 30 MG TAB.ER.24 90 MG PO (09:58)
[2023-03-02] MEDS: NICOTINE (*PBKC) 21 MG PATCH 1 PATCH TRANSDERM (10:02)
[2023-03-02] MEDS: ALBUTEROL SULFATE NEB 2.5 MG/3 ML INH INHALATION (16:55)
--- NOTE | 2023-03-02 19:25 | PC.NURSE ---
Pt has not been compliant with seizure precautions. Pt continues to take off seizure pads. Pt is compliant with taking medication. Pt made multiple attempts to get out of bed. Pt was educated that he could not get out of bed independently. Pt continued to attempt to get out of bed. Pt finally agreed to get back in bed and has been resting ever since. Will continue to monitor pt.
[2023-03-02] MEDS: FAMOTIDINE 20 MG TABLET PO (20:40)
[2023-03-03] VITALS (23 sets, daily range): BP systolic 102–173; BP diastolic 58–99; PULSE 71–97; RESP 16–21; TEMP 36.1–37.3; O2SAT 92–100; BMI 19.0
[2023-03-03] MEDS: ACETAMINOPHEN 325 MG TABLET 650 MG PO (06:04)
[2023-03-03] MEDS: hydrALAZINE HCL 20 MG/ML VIAL 10 MG IV PUSH (06:06)
[2023-03-03 06:29] LABS: Hematocrit 30.5 % (42.0-52.0); Hemoglobin 10.3 g/dL (14.0-18.0); Mean Corpuscular HGB Conc 33.8 g/dl (32-36); Mean Corpuscular Hemoglobin 33.2 pg (26-34); Mean Corpuscular Volume 98.4 fl (80-100); Mean Platelet Volume 11.8 fl (7.4-10.4); Platelet Count Result 183 k/mm3 (150-375); Red Cell Distribution Width 12.1 % (11.5-14.5); White Blood Count 11.6 K/mm3 (4.5-10.0)
[2023-03-03 07:14] LABS: Anion Gap 10 mmol/L (8-16); Blood Urea Nitrogen 42 mg/dL (9-20); Calcium 8.5 mg/dL (8.4-10.2); Carbon Dioxide 29 mmol/L (22-30); Chloride 95 mmol/L (98-107); Estimated CRCL calculation 6 ml/min; Estimated Glomerular Filt Rate 6; Glucose 96 mg/dL (65-110); Phosphorus 5.1 mg/dL (2.5-4.5); Potassium 3.9 mmol/L (3.4-5.0); Sodium 134 mmol/L (137-145)
--- NOTE | 2023-03-03 08:08 | PM.PNNEP ---
Progress Note: A&P Assessment and Plan (1) End stage renal disease: Code(s): N18.6 - End stage renal disease Status: Chronic Assessment and Plan: the patient has end-stage renal disease. He is due for dialysis today Potassium looks good at 3.9. Volume status looks okay. He is on a little bit of oxygen. Will take some fluid off to see if we can help this out. He also has COPD which is playing a role. (2) Hypertension: Code(s): I10 - Essential (primary) hypertension Status: Chronic Assessment and Plan: Systolic in the emergency room was 214. This improved and overnight was in the 130s. This morning is 172. He will take his morning blood pressure pills. We will take some fluid off today and see how his blood pressure does. (3) Acute dyspnea: Code(s): R06.00 - Dyspnea, unspecified Status: Acute Assessment and Plan: This is overall improved. He is still on some oxygen. (4) Seizure-like activity: Code(s): R56.9 - Unspecified convulsions Status: Acute Assessment and Plan: The patient had seizure-like activity today witnessed by Dr. Alston and the nurses. He also had some postictal symptoms as well. He was given his Keppra and I encouraged him to continue to take his seizure medications every day. No recurrent episodes. (5) Chronic obstructive pulmonary disease: Code(s): J44.9 - Chronic obstructive pulmonary disease, unspecified Status: Acute Assessment and Plan: The patient has COPD. He continues to smoke. (6) Tobacco dependence: Code(s): F17.200 - Nicotine dependence, unspecified, uncomplicated Status: Acute Assessment and Plan: hopefully the patient will stop smoking. (7) Erythropoietin deficiency anemia: Code(s): D63.1 - Anemia in chronic kidney disease Status: Acute Assessment and Plan: Hemoglobin today is down to 10.3. Will give him a 1 time dose of EPO. (8) Renal osteodystrophy: Code(s): N25.0 - Renal osteodystrophy Status: Acute Assessment and Plan: Phosphorus is target. Will keep an eye on this Subjective Date/time seen: 03/03/23 08:08 Interval history: Sachin is feeling about the same. ?I want a cup of coffee ? He used his CPAP machine some last night. At home he uses it intermittently. Review of Systems Cardiovascular: Cardiovascular: Reports no additional cardiovascular complaints Respiratory: Respiratory: Reports no additional respiratory complaints Gastrointestinal: Gastrointestinal: Reports no additional gastrointestinal complaints Genitourinary: Genitourinary: Reports no additional male genitourinary complaints Exam Narrative: WDWN in NAD skin no rash head ncat lungs clear bilaterally cor reg no rub or gallop abd BS+ nontender and soft ext no edema. Objective Data Vital Signs Vital Signs: Vital Signs - 24 hr 03/02/23 08:36 03/02/23 09:57 03/02/23 12:00 Temperature 97.2 F L Pulse Rate 86 Respiratory Rate 20 Blood Pressure 149/86 H Pulse Oximetry 93 93 98 Oxygen Delivery Nasal Cannula Nasal Cannula Oxygen Flow Rate 3 2.5 03/02/23 14:00 03/02/23 12:03 03/02/23 16:55 Temperature 97.2 F L Pulse Rate 86 81 80 Respiratory Rate 20 24 H Blood Pressure 149/86 H Pulse Oximetry 100 Oxygen Delivery Oxygen Flow Rate 03/02/23 17:05 03/02/23 16:01 03/02/23 20:36 Temperature 97 F L Pulse Rate 77 79 73 Respiratory Rate 20 18 Blood Pressure 127/66 Pulse Oximetry 98 Oxygen Delivery Oxygen Flow Rate 03/02/23 19:50 03/03/23 00:57 03/02/23 20:00 Temperature 97 F L Pulse Rate 96 96 Respiratory Rate 20 Blood Pressure 132/72 Pulse Oximetry 95 98 Oxygen Delivery Nasal Cannula Oxygen Flow Rate 2.5 03/03/23 00:00 03/03/23 05:09 03/03/23 04:00 Temperature 97 F L Pulse Rate 91 95 71 Respiratory Rate 20 Blood Pressure 172/99 H Pul
[2023-03-03] MEDS: UMECLIDINIUM BROMIDE 62.5 MCG ELLIPTA 1 PUFF INHALATION (08:26)
[2023-03-03] MEDS: FLUTICASONE/SALMETEROL 230-21 MCG INHALER 1 PUFF 2 PUFF INHALATION ×2 (08:26→21:19)
[2023-03-03] MEDS: levETIRAcetam 250 MG TABLET PO ×2 (08:59→21:21)
[2023-03-03] MEDS: SODIUM BICARBONATE TAB 650 MG TABLET PO ×2 (08:59→17:45)
[2023-03-03] MEDS: ISOSORBIDE MONONITRATE 30 MG TAB.ER.24H PO (08:59)
[2023-03-03] MEDS: DIVALPROEX SODIUM ER 500 MG TAB.24H PO ×2 (08:59→21:21)
[2023-03-03] MEDS: predniSONE 20 MG TABLET 60 MG PO (08:59)
[2023-03-03] MEDS: ATORVASTATIN 40 MG TABLET PO (09:00)
[2023-03-03] MEDS: lisinopriL 20 MG TABLET 40 MG PO (09:00)
[2023-03-03] MEDS: NIFEdipine 30 MG TAB.ER.24 90 MG PO (09:01)
[2023-03-03] MEDS: oxyBUTYnin CHLORIDE XL 5 MG TAB.ER.24 10 MG PO (09:01)
[2023-03-03] MEDS: ASPIRIN 81 MG ENTERIC TABLET PO (09:01)
[2023-03-03] MEDS: NICOTINE (*PBKC) 21 MG PATCH 1 PATCH TRANSDERM (09:02)
[2023-03-03 09:46] LABS: Troponin I 0.152 ng/mL (0.000-0.034)
[2023-03-03 10:33] LABS: Hepatitis B Surface Antigen Negative (Negative)
--- NOTE | 2023-03-03 10:37 | WPDNEUROLOGY ---
Neurology EEG Report General Information Date of Study: 03/03/23 TEST eeg DIAGNOSIS seizures CONDITION OF RECORDING awake,drowsy and sleep. EEG NUMBER [id number]
--- NOTE | 2023-03-03 10:43 | P.NEURO_ITS ---
Neurology EEG Report General Information Date of Study: 03/03/23 TEST eeg DIAGNOSIS Seizures CONDITION OF RECORDING awake drowsy and sleep, patient had several episodes throughout his tracing of right-sided jerking and trembling along with mumbling. EEG NUMBER [id number] CLINICAL HISTORY Patient is poor historian gives history of seizures and also has dialysis 3 times per week. EEG DESCRIPTION Basic resting occipital frequency consists of 8 to 9 hertz per 2nd alpha seen posteriorly. There is well-developed anterior posterior gradient. Low-voltage beta activity seen diffusely admixed with waxing and waning posterior alpha rhythm during drowsiness. Bilateral symmetrical sleep activity seen with mixture of alpha and theta activity. patient did not enter stage 2 sleep. Non paroxysmal. Nonfocal. Nonlateralizing. IMPRESSION Normal EEG during wakefulness and drowsiness but without evidence of any electro graphics seizure activity ,clinical correlation recommended ,this does n ot rule out the seizures disorder.
[2023-03-03 10:50] LABS: Hepatitis B Surface Anti Res Negative
--- NOTE | 2023-03-03 11:51 | WPDNEURCNPN ---
Assessment and Plan Assessment and plan (1) Altered mental status: Code(s): R41.82 - Altered mental status, unspecified Status: Acute (2) Chronic kidney disease: Code(s): N18.9 - Chronic kidney disease, unspecified Status: Acute (3) Seizure-like activity: Code(s): R56.9 - Unspecified convulsions Status: Acute Plan chronic renal dialysis in addition to the possibility of the seizures patient is taking 2 anticonvulsants namely Depakote and Keppra treatment can be continued as such. e Consult date: 03/03/23 HPI: Sachin Donahue is a 67 year old male admitted to the hospital through the emergency room where he was brought by the ambulance from home the complaints of increasing shortness of breath of [id number] duration is starting during dialysis without associated chest pain fever chills or GI symptoms he did not take his medications in the morning had dialysis day before was not completed because of lack of water and also has history of coronary stenting with stroke and has been taking aspirin though is still he has full code status. In addition as per the review of the medical record he has ongoing history of previous cerebrovascular accident, coronary artery disease, erythropoietin deficiency anemia peripheral vascular disease, renal osteodystrophy, and seizure-like activity with normal EEG back in April of 2020 but patient has been on levetiracetam, had an EEG on 612 which is normal without evidence of any seizure-like discharge or focal abnormalities. Patient is receiving divalproex 500 mg q.12 hours in addition to levetiracetam 250 mg q.12 hours considering the he is a renal dialysis patient Keppra is running on the lower dosage they can increase the divalproex [id number] q.12 hours for the ongoing possibility of the seizures PMFSH Past Medical History Medical History Cerebrovascular accident Chronic obstructive pulmonary disease Coronary artery disease COVID-19 (02/2022) Elevated troponin End-stage renal disease on hemodialysis Friday Erythropoietin deficiency anemia Facial edema GERD with esophagitis Hyperlipidemia Hypertension Obstructive sleep apnea Pacemaker Peripheral vascular disease Renal osteodystrophy Seizure-like activity Normal EEG in April 2022 though patient is on levetiracetam. Shortness of breath Tobacco abuse Surgical History Surgical History History of percutaneous coronary intervention Iliac stent. Cardiac stents. History of permanent cardiac pacemaker placement S/P hemodialysis catheter insertion Family History Family History Father Cancer of lung Mother Heart failure Social History Social History Social History: the patient tells me that he lives with his son. The patient continues to smoke a pack a cigarettes a day. He is listed as single and unemployed Healthcare power of collections attorney: Von Donahue, son. Code status: Full code. Smoking packs per day: 1 Smoking cigarettes per day: 20.0 Years smoked: 45 Smoking pack-years: 45.00 Smoking status: Current every day smoker Tobacco type: cigarettes Second hand tobacco smoke exposure: No Alcohol intake: never Substance use: never Substance use type: does not use Lack of Transportation: YES Lack of Food: Often True Current Housing: I Have Housing Concerned About Future Housing: No Difficulty Paying Gas/Electric Bills: YES Difficulty Paying for Meds: YES Currently Unemployed: No Education: Grade School Difficulty w/ Childcare or Family Care: No Additional living arrangements comments: The patient lives in [place]. His son Von lives at home with him. Spiritual care concerns: No Meds Home Medications and Allergie
--- NOTE | 2023-03-03 18:33 | PC.NURSE ---
Pt had dialysis today. Pt had 1.8L removed. Dialysis ended early due to pt reporting chest pain. Pt Tele looks ok and pt did not report pain to nurse. Pt continues to spit on items in room and urinate in the bed instead of using urinal because staff will not let him up due to seizure precautions and bedrest order. Will continue to monitor pt.
--- NOTE | 2023-03-03 18:43 | PM.IMPN ---
Progress Note: A&P Assessment and Plan (1) Hypoxia: Code(s): R09.02 - Hypoxemia Status: Acute Assessment and Plan: Patient presents with shortness of breath and found to be hypoxic. He was not in respiratory distress. CXR was clear but BNP >30K. BP was elevated on admission to 214/120 which probably contributed (or caused) the shortness of breath. He denies chest pain. he has remained stable on 2-3L since admisison. ABG was drawn which showed 7.51/33/91 on 3 L during the time of his seizure. He has a productive cough but no wheezing. Will stop Prednisone. Repeat CXR in the morning. (2) Seizure-like activity: Code(s): R56.9 - Unspecified convulsions Status: Acute Assessment and Plan: Patient has probable underlying seizure hx and takes Keppra and divalproex at home. He had witnessed seizure activity yesterday morning and he was given 1gram of Keppra. EEG today was read as normal. CT brain show no acute findings. Continue Keppra and divalproex. Appreciate neurology input. (3) Elevated troponin: Code(s): R77.8 - Other specified abnormalities of plasma proteins Status: Inactive Assessment and Plan: Troponin elevated to 0.152 here. Troponin appears to be chronically elevated. EKG showing normal sinus rhythm with LVH but no change from prior. EKG was repeated but again showingno change. Echo in April showing EF 60-65% and Grade I diastolic dysfunction. Elevated Trop probably related to ESRD, severe HTN. He does have a history of coronary artery disease and has a stent reportedly. Continue ASA, Lipitor, Imdur. Not on beta-agustina for unclear reasons. Contineu to monitor on tele. (4) Hypertension: Code(s): I10 - Essential (primary) hypertension Status: Acute Assessment and Plan: The patient presents with complaints of SOB and found to have hypertensive emergency with BP of 214/120. The patient had not taken any of his medications that day. Medciations resumed and BP improved. Follow. (5) End-stage renal disease on hemodialysis: Code(s): N18.6 - End stage renal disease; Z99.2 - Dependence on renal dialysis Status: Chronic Assessment and Plan: Hemodialysis catheter in the right upper chest. HD on Friday. The patient had partial treatment the day before admission. BNP >30K. CXR clear but patient feels SOB and is hypoxic. Nephrology consulted and patient currently undergoing HD. Wean O2 as toelrated. (6) COPD, frequent exacerbations: Code(s): J44.1 - Chronic obstructive pulmonary disease with (acute) exacerbation Status: Acute Assessment and Plan: Stable. Not wheezing. Continue P.r.n. Albuterol. Continue with home Advair. He was educated about the benefit of smoking cesation. Will stop Prednisone and monitor. (7) Obstructive sleep apnea: Code(s): G47.33 - Obstructive sleep apnea (adult) (pediatric) Status: Acute Assessment and Plan: Stable. Home CPAP resumed but patient refusing. Could be contributing to his above issues. Encourage compliance. (8) Tobacco dependence: Code(s): F17.200 - Nicotine dependence, unspecified, uncomplicated Status: Acute Assessment and Plan: the patient was educated about the benefits of smoking cessation. Subjective Date/time seen: 03/03/23 18:43 Interval history: 67yo male with ESRD, CAD, COPD, NIGHAT and HTN who presented to the ED with complaints of shortness of breath during dialysis the day before.?? Assuming care. Chart reviewed. Patient is alert but confused so hx is unreliable. He is on Prednisone on admission but he is unsure if this is a new prescription or old. He has a cough productive of whitish sputum. Not on home O2. He feels SOB. Currently undergoing HD at this time. (Patient was NOT added to me personal list for 03/02/23) Review of Systems Review of Systems: ROS unobtainable: Yes unobtainable due
[2023-03-03] MEDS: FAMOTIDINE 20 MG TABLET PO (21:21)
[2023-03-04] VITALS (15 sets, daily range): BP systolic 140–190; BP diastolic 76–112; PULSE 60–97; RESP 16–20; TEMP 36–37; O2SAT 93–98
[2023-03-04 06:28] LABS: Basophils Percent Auto 0.3 % (0.2-1.2); Hematocrit 31.4 % (42.0-52.0); Hemoglobin 10.4 g/dL (14.0-18.0); Immature Granulocyte Absolute 0.06 K/mm3 (0.00-0.031); Immature Granulocyte Percent A 0.5 % (0-0.5); Lymphocytes Percent Auto 14.8 % (18.3-44.2); Mean Corpuscular HGB Conc 33.1 g/dl (32-36); Mean Corpuscular Hemoglobin 32.6 pg (26-34); Mean Corpuscular Volume 98.4 fl (80-100); Mean Platelet Volume 11.7 fl (7.4-10.4); Monocytes Absolute Auto 0.8 K/mm3 (0.1-0.6); Monocytes Percent Auto 6.4 % (2.6-8.5); Neutrophils Absolute Auto 9.5 K/mm3 (1.3-6.7); Platelet Count Result 225 k/mm3 (150-375); Red Blood Count 3.19 M/mm3 (4.6-6.20); Red Cell Distribution Width 12.1 % (11.5-14.5); White Blood Count 12.2 K/mm3 (4.5-10.0)
[2023-03-04 06:50] LABS: Anion Gap 9 mmol/L (8-16); Blood Urea Nitrogen 33 mg/dL (9-20); Calcium 8.5 mg/dL (8.4-10.2); Carbon Dioxide 32 mmol/L (22-30); Chloride 92 mmol/L (98-107); Estimated CRCL calculation 8 ml/min; Estimated Glomerular Filt Rate 9; Glucose 87 mg/dL (65-110); Phosphorus 3.9 mg/dL (2.5-4.5); Potassium 3.7 mmol/L (3.4-5.0); Sodium 133 mmol/L (137-145)
[2023-03-04] MEDS: SODIUM BICARBONATE TAB 650 MG TABLET PO ×3 (08:16→16:20)
[2023-03-04] MEDS: oxyBUTYnin CHLORIDE XL 5 MG TAB.ER.24 10 MG PO (08:16)
[2023-03-04] MEDS: ISOSORBIDE MONONITRATE 30 MG TAB.ER.24H PO (08:16)
[2023-03-04] MEDS: DIVALPROEX SODIUM ER 500 MG TAB.24H PO ×2 (08:17→20:24)
[2023-03-04] MEDS: levETIRAcetam 250 MG TABLET PO ×2 (08:17→20:24)
[2023-03-04] MEDS: ATORVASTATIN 40 MG TABLET PO (08:17)
[2023-03-04] MEDS: lisinopriL 20 MG TABLET 40 MG PO (08:17)
[2023-03-04] MEDS: NIFEdipine 30 MG TAB.ER.24 90 MG PO (08:17)
[2023-03-04] MEDS: ASPIRIN 81 MG ENTERIC TABLET PO (08:17)
[2023-03-04] MEDS: hydrALAZINE HCL 20 MG/ML VIAL 10 MG IV PUSH (08:21)
[2023-03-04] MEDS: NICOTINE (*PBKC) 21 MG PATCH 1 PATCH TRANSDERM (08:21)
--- NOTE | 2023-03-04 08:27 | PC.NURSE ---
MD aware pt b/p 162/112 this am. ordered 10mg hydralazine. hydralazine given at 0821. will recheck b/p in 15 mins
[2023-03-04] MEDS: UMECLIDINIUM BROMIDE 62.5 MCG ELLIPTA 1 PUFF INHALATION (08:32)
[2023-03-04] MEDS: FLUTICASONE/SALMETEROL 230-21 MCG INHALER 1 PUFF 2 PUFF INHALATION ×2 (08:32→20:08)
--- NOTE | 2023-03-04 11:33 | WPDNEUROPN ---
Subjective Date/time seen: 03/04/23 11:33 Interval history: + follow-up neurological status patient remains awake alert and follows instructions very well his speech is not dysphasic no dysarthric and extraocular movements are full without any nystagmus he is inclined to ambulate if allowed to will discuss with the nursing service rest of the exam as such Objective Data Vital Signs Vital Signs: Vital Signs - 24 hr 03/03/23 14:28 03/03/23 14:28 03/03/23 14:38 Temperature 36.3 C L Pulse Rate 78 85 Respiratory Rate 16 Blood Pressure 153/87 H 168/87 H Pulse Oximetry Oxygen Delivery Oxygen Flow Rate 3 03/03/23 15:00 03/03/23 15:20 03/03/23 15:40 Temperature Pulse Rate 89 97 79 Respiratory Rate Blood Pressure 115/86 114/76 109/79 Pulse Oximetry Oxygen Delivery Oxygen Flow Rate 03/03/23 16:00 03/03/23 16:20 03/03/23 16:40 Temperature Pulse Rate 93 97 90 Respiratory Rate Blood Pressure 114/74 102/62 115/64 Pulse Oximetry Oxygen Delivery Oxygen Flow Rate 03/03/23 16:58 03/03/23 17:56 03/03/23 12:30 Temperature 36.6 C Pulse Rate 92 82 85 Respiratory Rate 18 Blood Pressure 121/71 118/58 L Pulse Oximetry Oxygen Delivery Oxygen Flow Rate 03/03/23 16:01 03/03/23 17:30 03/03/23 21:19 Temperature 36.1 C L Pulse Rate 94 92 Respiratory Rate 20 Blood Pressure 173/90 H Pulse Oximetry 92 94 Oxygen Delivery Nasal Cannula Oxygen Flow Rate 2.5 03/03/23 21:29 03/03/23 20:00 03/03/23 20:00 Temperature 36.6 C Pulse Rate 97 85 83 Respiratory Rate 21 H 20 Blood Pressure 132/67 Pulse Oximetry 94 98 Oxygen Delivery Autopap Oxygen Flow Rate 03/04/23 00:00 03/04/23 02:08 03/04/23 00:00 Temperature 36.4 C Pulse Rate 81 89 71 Respiratory Rate 18 18 Blood Pressure 140/82 Pulse Oximetry 96 94 Oxygen Delivery Autopap Oxygen Flow Rate 03/04/23 04:00 03/04/23 04:00 03/04/23 07:53 Temperature 36.0 C L 36.7 C Pulse Rate 69 82 72 Respiratory Rate 20 20 Blood Pressure 150/101 H 162/112 H Pulse Oximetry 93 96 Oxygen Delivery Oxygen Flow Rate 03/04/23 08:35 03/04/23 08:44 Temperature Pulse Rate Respiratory Rate Blood Pressure 158/87 H Pulse Oximetry 96 Oxygen Delivery Nasal Cannula Oxygen Flow Rate 3 Intake/Output Intake/Output: Intake & Output 03/01/23 03/02/23 03/03/23 03/04/23 23:59 23:59 23:59 23:59 Intake Total 600 1200 960 960 Output Total 200 2050 100 Balance 600 1000 -1090 860 Meds/Results Medications: Active Medications Generic Name Dose Route Start Last Admin Trade Name Freq PRN Reason Stop Dose Admin Acetaminophen 650 mg 03/01/23 17:58 03/03/23 06:04 Acetaminophen 325 Mg Tablet PO 650 mg Q4H PRN Administration Mild Pain (1-3) or Fever Albuterol 2.5 mg 03/01/23 23:18 03/02/23 16:55 Albuterol Sulfate Neb 2.5 Mg/3 Ml Inh INHALATION 2.5 mg Q6HRT PRN Administration Shortness Of Breath Aspirin 81 mg 03/02/23 09:00 03/04/23 08:17 Aspirin 81 Mg Enteric Tablet PO 81 mg DAILY DRAGAN Administration Atorvastatin Calcium 40 mg 03/02/23 09:00 03/04/23 08:17 Atorvastatin 40 Mg Tablet PO 40 mg DAILY DRAGAN Administration Divalproex Sodium 500 mg 03/01/23 23:20 03/04/23 08:17 Divalproex Sodium Er 500 Mg Tab.24h PO 500 mg Q12HR DRAGAN Administration Famotidine 20 mg 03/01/23 23:20 03/03/23 21:21 Famotidine 20 Mg Tablet PO 20 mg HS DRAGAN Administration Hydralazine HCl 10 mg 03/01/23 22:44 03/04/23 08:21 Hydralazine Hcl 20 Mg/Ml Vial IV PUSH 10 mg Q8H PRN Administration Blood Pressure - SBP >170 Isosorbide Mononitrate 30 mg 03/02/23 09:00 03/04/23 08:16 Isosorbide Mononitrate 30 Mg Tab.Er.24h PO 30 mg DAILY DRAGAN Administration Levetiracetam 250 mg 03/01/23 23:20 03/04/23 08:17 Levetiracetam 250 Mg Tablet PO 250 mg Q12HR DRAGAN Administration Lisinopril 40 mg
--- NOTE | 2023-03-04 11:51 | PM.IMPN ---
Progress Note: A&P Assessment and Plan (1) Hypoxia: Code(s): R09.02 - Hypoxemia Status: Acute Assessment and Plan: Patient presents with shortness of breath and found to be hypoxic. He was not in respiratory distress. CXR was clear but BNP >30K. BP was elevated on admission to 214/120 which probably contributed (or caused) the shortness of breath. He denies chest pain. He underwent HD yesterday with removal of 1800mL. He remains on 2-3L since admission. He has a productive cough and now with wheezing. Repeat CXR this morning c/w emphysema. He may have COPD exacerbation causing his persistent hypoxia or has needed O2 prior to admission given his chronic DENNIS. Add back Prednisone. Schedule Albuterol/Atrovent. Wean O2. If no improvement in O2 requirement, plan home O2 evaluation. (2) Seizure-like activity: Code(s): R56.9 - Unspecified convulsions Status: Acute Assessment and Plan: Patient has probable underlying seizure hx and takes Keppra and divalproex at home. He had witnessed seizure activity 03/02 and he was given 1 gram of Keppra. EEG read as normal. CT brain show no acute findings. Continue Keppra and divalproex. Appreciate neurology input. (3) Elevated troponin: Code(s): R77.8 - Other specified abnormalities of plasma proteins Status: Inactive Assessment and Plan: Troponin elevated to 0.152 here. Troponin appears to be chronically elevated. EKG showing normal sinus rhythm with LVH but no change from prior. EKG was repeated but again showing no acute change. Echo in April showing EF 60-65% and Grade I diastolic dysfunction. Elevated Trop probably related to ESRD, severe HTN. He does have a history of coronary artery disease and has a stent reportedly. Continue ASA, Lipitor, Imdur. Not on beta-agustina possibly due to his lung disease. Continue to monitor but can stop tele. (4) Hypertension: Code(s): I10 - Essential (primary) hypertension Status: Acute Assessment and Plan: The patient presents with complaints of SOB and found to have hypertensive emergency with BP of 214/120. The patient had not taken any of his medications that day. Medications resumed and BP improved. Patient's blood pressure was reviewed on 03/04 Blood pressure remains well controlled. Will continue current medications. Follow. (5) End-stage renal disease on hemodialysis: Code(s): N18.6 - End stage renal disease; Z99.2 - Dependence on renal dialysis Status: Chronic Assessment and Plan: Hemodialysis catheter in the right upper chest. HD on Friday. The patient had partial treatment the day before admission. BNP >30K. CXR clear but patient felt SOB and was hypoxic. Nephrology consulted and patient had HD yesterday. Wean O2 as tolerated. Appreciate nephrology input. (6) COPD, frequent exacerbations: Code(s): J44.1 - Chronic obstructive pulmonary disease with (acute) exacerbation Status: Acute Assessment and Plan: Stable. Wheezing now. Resume Albuterol and Atrovent nebs. Continue with home Advair. He was educated about the benefit of smoking cessation. Resume Prednisone (Day 3 of 5) (7) Obstructive sleep apnea: Code(s): G47.33 - Obstructive sleep apnea (adult) (pediatric) Status: Acute Assessment and Plan: Stable. Home CPAP resumed. Patient was refusing but did wear NIV last night. Encourage compliance. (8) Tobacco dependence: Code(s): F17.200 - Nicotine dependence, unspecified, uncomplicated Status: Acute Assessment and Plan: the patient was educated about the benefits of smoking cessation. Subjective Date/time seen: 03/04/23 11:51 Interval history: 67yo male with ESRD, CAD, COPD, NIGHAT and HTN who presented to the ED with complaints of shortness of breath during dialysis the day before.?? Patient feels SOB today. No CP. Cough is better. Chronic wheezing. Has bee
[2023-03-04] MEDS: predniSONE 20 MG TABLET 60 MG PO (12:31)
[2023-03-04] MEDS: IPRATROPIUM BR 0.02% INH SOLN 0.5 MG/2.5 ML VIAL INHALATION ×2 (13:45→20:07)
[2023-03-04] MEDS: ALBUTEROL SULFATE NEB 2.5 MG/3 ML INH INHALATION ×2 (13:45→20:07)
[2023-03-04 16:53] LABS: Glucose Point of Care 123 mg/dl (65-105)
--- NOTE | 2023-03-04 16:53 | PC.NURSE ---
at 1630 pt used call light and then was visualized on camera shaking in his recliner. Nurse went in to assess pt. pt was heard stating 'ba ba ba ba' over and over again. pt understood questions and was able to give one word answers. pt stated he wanted to go back to bed. 2 nurses helped patient get back to bed. pt stated he was cold and we covered pt with warm blankets. glucose level and vitals were stable. notified. will monitor
--- NOTE | 2023-03-04 17:45 | PM.PNNEP ---
Progress Note: A&P Assessment and Plan (1) End stage renal disease: Code(s): N18.6 - End stage renal disease Status: Chronic Assessment and Plan: the patient has end-stage renal disease. He is due for dialysis tomorrow Potassium looks good at 3.7 Volume status looks okay. will remove more fluid tomorrow. He also has COPD which is playing a role. He is on supportive care for that including inhalers. (2) Hypertension: Code(s): I10 - Essential (primary) hypertension Status: Chronic Assessment and Plan: Systolic Is running mostly in the 120s to 150s. He is on lisinopril 40 mg a day. This dialyzes off so I am going to switch administration to evening. He is also on nifedipine. (3) Acute dyspnea: Code(s): R06.00 - Dyspnea, unspecified Status: Acute Assessment and Plan: This is overall improved. He is still on some oxygen. (4) Seizure-like activity: Code(s): R56.9 - Unspecified convulsions Status: Acute Assessment and Plan: The patient had seizure-like activity today witnessed by Dr. Alston and the nurses. He also had some postictal symptoms as well. He was given his Keppra and I encouraged him to continue to take his seizure medications every day. No recurrent episodes. (5) Chronic obstructive pulmonary disease: Code(s): J44.9 - Chronic obstructive pulmonary disease, unspecified Status: Acute Assessment and Plan: The patient has COPD. He continues to smoke. on supportive care (6) Tobacco dependence: Code(s): F17.200 - Nicotine dependence, unspecified, uncomplicated Status: Acute Assessment and Plan: hopefully the patient will stop smoking. (7) Erythropoietin deficiency anemia: Code(s): D63.1 - Anemia in chronic kidney disease Status: Acute Assessment and Plan: Hemoglobin today is down in the 10s. continue the epo. no hypertensive urgency any more so okay to give. (8) Renal osteodystrophy: Code(s): N25.0 - Renal osteodystrophy Status: Acute Assessment and Plan: Phosphorus is target. Will keep an eye on this Subjective Date/time seen: 03/04/23 17:45 Interval history: Sachin is feeling about the same. lying in hospital bed with the bed clothes over his head. He looks comfortable. He denies shortness of breath Exam Narrative: WDWN in NAD skin no rash head ncat lungs clear bilaterally. There is some increase in expiratory phase cor reg no rub or gallop abd BS+ nontender and soft ext no edema. Objective Data Vital Signs Vital Signs: Vital Signs - 24 hr 03/03/23 17:56 03/03/23 21:19 03/03/23 21:29 Temperature 97.8 F Pulse Rate 82 97 Respiratory Rate 18 21 H Blood Pressure 118/58 L Pulse Oximetry 94 94 Oxygen Delivery Nasal Cannula Autopap Oxygen Flow Rate 2.5 03/03/23 20:00 03/03/23 20:00 03/04/23 00:00 Temperature 97.8 F 97.6 F Pulse Rate 85 83 81 Respiratory Rate 20 18 Blood Pressure 132/67 140/82 Pulse Oximetry 98 96 Oxygen Delivery Oxygen Flow Rate 03/04/23 02:08 03/04/23 00:00 03/04/23 04:00 Temperature Pulse Rate 89 71 69 Respiratory Rate 18 Blood Pressure Pulse Oximetry 94 Oxygen Delivery Autopap Oxygen Flow Rate 03/04/23 04:00 03/04/23 07:53 03/04/23 08:35 Temperature 96.8 F L 98.0 F Pulse Rate 82 72 Respiratory Rate 20 20 Blood Pressure 150/101 H 162/112 H Pulse Oximetry 93 96 96 Oxygen Delivery Nasal Cannula Oxygen Flow Rate 3 03/04/23 08:44 03/04/23 12:00 03/04/23 13:43 Temperature 97.1 F L Pulse Rate 94 Respiratory Rate 18 Blood Pressure 158/87 H 151/76 H Pulse Oximetry 96 Oxygen Delivery Room Air Oxygen Flow Rate 03/04/23 13:47 03/04/23 14:01 03/04/23 08:00 Temperature Pulse Rate 91 80 60 Respiratory Rate 20 20 Blood Pressure Pulse Oximetry Oxygen Delivery Oxygen Flow Rate 0
[2023-03-04] MEDS: FAMOTIDINE 20 MG TABLET PO (20:24)
[2023-03-04] MEDS: ACETAMINOPHEN 325 MG TABLET 650 MG PO (20:24)
[2023-03-05 00:27] VITALS: BP 136/90; PULSE 90; RESP 20; TEMP 36.4; O2SAT 97
[2023-03-05 20:00] VITALS: BP 119/58; PULSE 85; RESP 20; TEMP 36.1; O2SAT 96
[2023-03-05] MEDS: IPRATROPIUM BR 0.02% INH SOLN 0.5 MG/2.5 ML VIAL INHALATION (20:34)
[2023-03-05] MEDS: ALBUTEROL SULFATE NEB 2.5 MG/3 ML INH INHALATION (20:34)
[2023-03-05 20:36] VITALS: PULSE 98; RESP 18
[2023-03-05] MEDS: FAMOTIDINE 20 MG TABLET PO (20:36)
[2023-03-05 20:40] VITALS: PULSE 98; RESP 18; O2SAT 96
[2023-03-05] MEDS: ACETAMINOPHEN 325 MG TABLET 650 MG PO (20:40)
[2023-03-05 20:45] VITALS: PULSE 95; RESP 18
--- NOTE | 2023-03-05 21:29 | PC.NURSE ---
Paper documentation exists on this patient due to [employer] downtime on 03/05/23 from 0030 to 1930 .
[2023-03-06] VITALS (24 sets, daily range): BP systolic 131–181; BP diastolic 57–91; PULSE 67–98; RESP 12–24; TEMP 36.1–36.8; O2SAT 95–100
--- NOTE | 2023-03-06 | ECHO_ITS ---
Patient Info Name: Sachin Donahue Age: 67 years : 1955 Gender: Male Ht: 67 in Wt: 125 lbs BSA: 1.63 m2 HR: 87 bpm BP: 131 / 57 mmHg Heart Rhythm: Sinus Rhythm Technical Quality: Fair Exam Date: 03/06/2023 2:52 PM Exam Location: [facility] Card Pulmonary Patient Status: Inpatient Admit Date: 03/03/2023 Staff Ordering Physician: Susanna Marrero DO Residential Real Estate Agent: Elisabet Warren RDCS Attending Provider: Heath Hernandez MD Referring Physician: Janes ALATORRE; Exam Type: CA echo doppler w bubble study Study Info Indications - stroke Complete two-dimensional, color flow and Doppler transthoracic echocardiogram is performed with agitated saline. Contrast/Agitated Saline Contrast/Ag. Saline: Agitated Saline Amount: 10.00 ml Summary 1. Moderate left ventricular hypertrophy with good systolic function and grade 1 diastolic noncompliance. 2. Mild left atrial enlargement. 3. Calcified mitral valve annulus. 4. Mildly sclerotic but not stenotic aortic valve. 5. Pacemaker leads noted. 6. Agitated saline contrast injection demonstrated no evidence of intracardiac shunt. 7. Compared to her echocardiogram from April of 2022 there are no significant changes. Left Ventricle Left ventricular chamber dimension is normal. Left ventricular systolic function is normal, estimated at 60-65%. There is moderate concentric increased left ventricular wall thickness. The left ventricular diastolic function is grade I diastolic dysfunction. Right Ventricle Right ventricular chamber dimension is normal. Left Atria Left atrial chamber dimension is mildly enlarged. Right Atria Right atrial chamber dimension is normal. Atrial Septum Intact interatrial septum visualized by agitated saline imaging. Aortic Valve The aortic valve is trileaflet. There is mild aortic valve sclerosis. There is trace aortic valve regurgitation. Pulmonic Valve The pulmonic valve is normal. Mitral Valve The mitral valve has normal leaflets. The mitral valve annulus is moderately calcified. Tricuspid Valve The tricuspid valve leaflets are normal. Pericardium/Pleural The pericardium appears normal. Aorta The aortic root size at the sinus of Valsalva is normal. Left Ventricular Outflow Tract Name Value Normal LVOT 2D LVOT Diameter 1.8 cm LVOT Doppler LVOT Peak Gradient 3 mmHg LVOT Mean Gradient 1 mmHg LVOT VTI 17 cm LVOT VTI/AV VTI Ratio 0.9 LVOT Stroke Volume 46 ml LVOT CO 3.6 l/min LVOT CI 2.2 l/min/m2 Pulmonic Valve Name Value Normal PV Doppler PV Peak Gradient 2 mmHg Mitral Valve Name Value
[2023-03-06] MEDS: IPRATROPIUM BR 0.02% INH SOLN 0.5 MG/2.5 ML VIAL INHALATION ×4 (01:16→21:15)
[2023-03-06] MEDS: ALBUTEROL SULFATE NEB 2.5 MG/3 ML INH INHALATION ×4 (01:17→21:15)
--- NOTE | 2023-03-06 05:47 | PC.NURSE ---
Pt started to have seizure like activity, staff went to check on pt and take vitals. Pt's BP was elevated, notified. CT ordered. Retook BP due to pt's face getting extremely red. Pt's BP had already increased by almost 20 points with 10 min. notified again of increasing BP. Pt was able to speak and answer questions at the start of shift. After this episode and on the way down to CT, pt's speech was garbled and was unable to make his needs known. Pt could still answer yes and no questions. Pt's speech continues to be garbled and difficult to understand at this time. Dr venegas.
[2023-03-06 06:02] LABS: Hematocrit 29.6 % (42.0-52.0); Hemoglobin 9.8 g/dL (14.0-18.0); Mean Corpuscular HGB Conc 33.1 g/dl (32-36); Mean Corpuscular Hemoglobin 32.8 pg (26-34); Mean Platelet Volume 11.3 fl (7.4-10.4); Platelet Count Result 184 k/mm3 (150-375); Red Blood Count 2.99 M/mm3 (4.6-6.20); Red Cell Distribution Width 11.9 % (11.5-14.5); White Blood Count 11.2 K/mm3 (4.5-10.0)
[2023-03-06 06:28] LABS: Albumin Level 3.8 g/dL (3.5-5.1); Anion Gap 9 mmol/L (8-16); Blood Urea Nitrogen 41 mg/dL (9-20); Calcium 8.2 mg/dL (8.4-10.2); Carbon Dioxide 32 mmol/L (22-30); Chloride 93 mmol/L (98-107); Estimated CRCL calculation 8 ml/min; Estimated Glomerular Filt Rate 9; Glucose 108 mg/dL (65-110); Phosphorus 4.3 mg/dL (2.5-4.5); Sodium 134 mmol/L (137-145)
[2023-03-06] MEDS: FLUTICASONE/SALMETEROL 230-21 MCG INHALER 1 PUFF 2 PUFF INHALATION (07:00)
[2023-03-06 08:20] LABS: Glucose Point of Care 139 mg/dl (65-105)
[2023-03-06] MEDS: NICOTINE (*PBKC) 21 MG PATCH 1 PATCH TRANSDERM (09:28)
[2023-03-06] MEDS: oxyBUTYnin CHLORIDE XL 5 MG TAB.ER.24 10 MG PO (09:29)
[2023-03-06] MEDS: NIFEdipine 30 MG TAB.ER.24 90 MG PO (09:29)
[2023-03-06] MEDS: predniSONE 20 MG TABLET 60 MG PO (09:30)
[2023-03-06] MEDS: DIVALPROEX SODIUM ER 500 MG TAB.24H PO ×2 (09:31→20:45)
[2023-03-06] MEDS: ASPIRIN 81 MG ENTERIC TABLET PO (09:32)
[2023-03-06] MEDS: levETIRAcetam 250 MG TABLET PO ×2 (09:32→20:45)
[2023-03-06] MEDS: ISOSORBIDE MONONITRATE 30 MG TAB.ER.24H PO (09:32)
[2023-03-06] MEDS: ATORVASTATIN 40 MG TABLET PO ×2 (09:32→15:49)
--- NOTE | 2023-03-06 11:05 | PCOTNOTE ---
Attempted to see Patient at this time. Patient refusing to perform or communicate with therapist at this time. Per RN, Patient enjoys being difficult, try back this afternoon.
[2023-03-06 11:26] LABS: Anion Gap 9 mmol/L (8-16); Blood Urea Nitrogen 55 mg/dL (9-20); Carbon Dioxide 33 mmol/L (22-30); Chloride 93 mmol/L (98-107); Estimated CRCL calculation 7 ml/min; Estimated Glomerular Filt Rate 7; Glucose 105 mg/dL (65-110); Sodium 135 mmol/L (137-145)
[2023-03-06 11:27] LABS: Albumin Level 3.9 g/dL (3.5-5.1); Calcium 8.3 mg/dL (8.4-10.2); Magnesium 2.1 mg/dL (1.6-2.3)
[2023-03-06 11:28] LABS: Basophils Percent Auto 0.2 % (0.2-1.2); Hematocrit 30.3 % (42.0-52.0); Hemoglobin 10.2 g/dL (14.0-18.0); Immature Granulocyte Percent A 0.4 % (0-0.5); Lymphocytes Percent Auto 9.6 % (18.3-44.2); Mean Corpuscular HGB Conc 33.7 g/dl (32-36); Mean Corpuscular Hemoglobin 33.2 pg (26-34); Mean Corpuscular Volume 98.7 fl (80-100); Mean Platelet Volume 11.7 fl (7.4-10.4); Monocytes Percent Auto 7.5 % (2.6-8.5); Neutrophils Percent Auto 82.3 % (45.5-73.1); Platelet Count Result 214 k/mm3 (150-375); Red Blood Count 3.07 M/mm3 (4.6-6.20); Red Cell Distribution Width 12.1 % (11.5-14.5); White Blood Count 10.8 K/mm3 (4.5-10.0)
[2023-03-06 11:29] LABS: Immature Granulocyte Absolute 0.04 K/mm3 (0.00-0.031); Lymphocytes Absolute Auto 1.04 K/mm3 (0.9-3.2); Monocytes Absolute Auto 0.8 K/mm3 (0.1-0.6); Neutrophils Absolute Auto 8.9 K/mm3 (1.3-6.7)
--- NOTE | 2023-03-06 11:30 | PM.PNNEP ---
Progress Note: A&P Assessment and Plan (1) End stage renal disease: Code(s): N18.6 - End stage renal disease Status: Chronic Assessment and Plan: the patient has end-stage renal disease. He is due for dialysis tomorrow Potassium looks good at 4 Volume status looks okay. will get a treatment tomorrow. (2) Hypertension: Code(s): I10 - Essential (primary) hypertension Status: Chronic Assessment and Plan: Systolic pressure running between 119 and 172. He is on nifedipine 90 and lisinopril 40. Will add a cardioselective beta-agustina (3) Acute dyspnea: Code(s): R06.00 - Dyspnea, unspecified Status: Acute Assessment and Plan: This is overall improved. remove more fluid tomorrow (4) Seizure-like activity: Code(s): R56.9 - Unspecified convulsions Status: Acute Assessment and Plan: The patient had seizure-like activity today witnessed by Dr. Alston and the nurses. He also had some postictal symptoms as well. He was given his Keppra and I encouraged him to continue to take his seizure medications every day. neurology is going to see the patient today No recurrent episodes. (5) Chronic obstructive pulmonary disease: Code(s): J44.9 - Chronic obstructive pulmonary disease, unspecified Status: Acute Assessment and Plan: The patient has COPD. He continues to smoke. on supportive care (6) Tobacco dependence: Code(s): F17.200 - Nicotine dependence, unspecified, uncomplicated Status: Acute Assessment and Plan: hopefully the patient will stop smoking. (7) Erythropoietin deficiency anemia: Code(s): D63.1 - Anemia in chronic kidney disease Status: Acute Assessment and Plan: Hemoglobin today is down in the 10s. continue the epo. (8) Renal osteodystrophy: Code(s): N25.0 - Renal osteodystrophy Status: Acute Assessment and Plan: Phosphorus is target. Will keep an eye on this Subjective Date/time seen: 03/06/23 11:30 Interval history: Sachin is feeling about the same. he looks a little better. He is sitting up at the side of the bed. He is asking about when he is going home. Exam Narrative: WDWN in NAD skin no rash or subcu nodules head ncat lungs clear bilaterally. There is some increase in expiratory phase cor reg no rub or gallop abd BS+ nontender and soft ext no edema or cyanosis. Objective Data Vital Signs Vital Signs: Vital Signs - 24 hr 03/05/23 20:36 03/05/23 20:40 03/05/23 20:00 Temperature 97.0 F L Pulse Rate 98 98 85 Respiratory Rate 18 18 20 Blood Pressure 119/58 L Pulse Oximetry 96 96 Pulse Oximetry [At Rest After Therapy Session] Oxygen Delivery Nasal Cannula Oxygen Flow Rate 3 Fraction of Inspired Oxygen 32 03/05/23 20:45 03/06/23 00:04 03/06/23 01:19 Temperature 97 F L Pulse Rate 95 85 83 Respiratory Rate 18 18 16 Blood Pressure 154/84 H Pulse Oximetry 98 Pulse Oximetry [At Rest After Therapy Session] Oxygen Delivery Oxygen Flow Rate Fraction of Inspired Oxygen 03/06/23 01:36 03/06/23 02:35 03/06/23 03:06 Temperature Pulse Rate 82 77 Respiratory Rate 16 24 H Blood Pressure 159/83 H 152/84 H Pulse Oximetry 98 Pulse Oximetry [At Rest After Therapy Session] Oxygen Delivery Oxygen Flow Rate Fraction of Inspired Oxygen 03/06/23 02:37 03/06/23 05:32 03/06/23 07:00 Temperature 98.1 F Pulse Rate 78 91 Respiratory Rate 20 18 Blood Pressure 172/91 H 144/80 H Pulse Oximetry 100 97 Pulse Oximetry [At Rest After Therapy Session] Oxygen Delivery Nasal Cannula Oxygen Flow Rate 2 Fraction of Inspired Oxygen 03/06/23 07:00 03/06/23 07:10 03/06/23 08:00 Temperature 97.9 F Pulse Rate 91 89 85 Respiratory Rate 18 18 12 Blood Pressure 156/86 H Pulse Oximetry 100 Pulse Oximetry [At Rest After Therapy S
[2023-03-06 12:13] LABS: Phosphorus 5.6 mg/dL (2.5-4.5)
--- NOTE | 2023-03-06 12:14 | PCPTNOTE ---
On 03/06/23, the student, [Yeimi Narayanan], provided care and completed [facility] documentation on this patient. I have reviewed the student's documentation and agree with the findings.
--- NOTE | 2023-03-06 12:25 | WPDNEUROPN ---
Subjective Date/time seen: 03/06/23 12:25 Interval history: patient had a CT scan without contrast on 03/05 which documented old infarct in the right cerebellum skyler and left thalamus will obtain the MRI of the brain in addition to echocardiogram patient is already receiving atorvastatin 40 mg daily, 81 mg daily, lisinopril 40 mg daily and levetiracetam 250 mg q.12 hours once both the studies are completed further adjustment will be made accordingly Objective Data Vital Signs Vital Signs: Vital Signs - 24 hr 03/05/23 20:36 03/05/23 20:40 03/05/23 20:00 Temperature 36.1 C L Pulse Rate 98 98 85 Respiratory Rate 18 18 20 Blood Pressure 119/58 L Pulse Oximetry 96 96 Pulse Oximetry [At Rest After Therapy Session] Oxygen Delivery Nasal Cannula Oxygen Flow Rate 3 Fraction of Inspired Oxygen 32 03/05/23 20:45 03/06/23 00:04 03/06/23 01:19 Temperature 36.1 C L Pulse Rate 95 85 83 Respiratory Rate 18 18 16 Blood Pressure 154/84 H Pulse Oximetry 98 Pulse Oximetry [At Rest After Therapy Session] Oxygen Delivery Oxygen Flow Rate Fraction of Inspired Oxygen 03/06/23 01:36 03/06/23 02:35 03/06/23 03:06 Temperature Pulse Rate 82 77 Respiratory Rate 16 24 H Blood Pressure 159/83 H 152/84 H Pulse Oximetry 98 Pulse Oximetry [At Rest After Therapy Session] Oxygen Delivery Oxygen Flow Rate Fraction of Inspired Oxygen 03/06/23 02:37 03/06/23 05:32 03/06/23 07:00 Temperature 36.7 C Pulse Rate 78 91 Respiratory Rate 20 18 Blood Pressure 172/91 H 144/80 H Pulse Oximetry 100 97 Pulse Oximetry [At Rest After Therapy Session] Oxygen Delivery Nasal Cannula Oxygen Flow Rate 2 Fraction of Inspired Oxygen 03/06/23 07:00 03/06/23 07:10 03/06/23 08:00 Temperature 36.6 C Pulse Rate 91 89 85 Respiratory Rate 18 18 12 Blood Pressure 156/86 H Pulse Oximetry 100 Pulse Oximetry [At Rest After Therapy Session] Oxygen Delivery Oxygen Flow Rate Fraction of Inspired Oxygen 03/06/23 09:45 Temperature Pulse Rate Respiratory Rate Blood Pressure Pulse Oximetry Pulse Oximetry [At Rest After Therapy Session] 95 Oxygen Delivery Room Air Oxygen Flow Rate Fraction of Inspired Oxygen Intake/Output Intake/Output: Intake & Output 03/03/23 03/04/23 03/05/23 03/06/23 23:59 23:59 23:59 23:59 Intake Total 960 1440 800 Output Total 2050 100 Balance -1090 1340 800 Meds/Results Medications: Active Medications Generic Name Dose Route Start Last Admin Trade Name Freq PRN Reason Stop Dose Admin Acetaminophen 650 mg 03/01/23 17:58 03/05/23 20:40 Acetaminophen 325 Mg Tablet PO 650 mg Q4H PRN Administration Mild Pain (1-3) or Fever Albuterol 2.5 mg 03/01/23 23:18 03/02/23 16:55 Albuterol Sulfate Neb 2.5 Mg/3 Ml Inh INHALATION 2.5 mg Q6HRT PRN Administration Shortness Of Breath Albuterol 2.5 mg 03/04/23 14:00 03/06/23 07:03 Albuterol Sulfate Neb 2.5 Mg/3 Ml Inh INHALATION 2.5 mg Q6HRT DRAGAN Administration Aspirin 81 mg 03/02/23 09:00 03/06/23 09:32 Aspirin 81 Mg Enteric Tablet PO 81 mg DAILY DRAGAN Administration Atorvastatin Calcium 40 mg 03/02/23 09:00 03/06/23 09:32 Atorvastatin 40 Mg Tablet PO 40 mg DAILY DRAGAN Administration Carvedilol 12.5 mg 03/06/23 21:00 Carvedilol 12.5 Mg Tablet PO Q12HR [facility] Divalproex Sodium 500 mg 03/01/23 23:20 03/06/23 09:31 Divalproex Sodium Er 500 Mg Tab.24h PO 500 mg Q12HR DRAGAN Administration Epoetin Jacques-epbx 10,000 units 03/07/23 10:06 Epoetin Jacques-Epbx 10,000 Units/Ml Vial IV PUSH MOWEFR DRAGAN Famotidine 20 mg 03/01/23 23:20 03/05/23 20:36 Famotidine 20 Mg Tablet PO 20 mg HS DRAGAN Administration Hydralazine HCl 10 mg 03/01/23 22:44 03/04/23 08:21 Hydralazine Hcl 20 Mg/Ml Vial IV PUSH 10 mg Q8H PRN Administration Blood Pressure - SBP >170 Albumin Human 50 mls @ 999 mls/
[2023-03-06] MEDS: carvediloL 12.5 MG TABLET PO ×2 (13:19→20:45)
--- NOTE | 2023-03-06 14:25 | PM.IMPN ---
Progress Note: A&P Assessment and Plan (1) Cerebrovascular accident: Code(s): I63.9 - Cerebral infarction, unspecified Status: Acute Assessment and Plan: new onset cva uncertain age, high intensity statin, full dose aspirin, check CTA head and neck, dialyze tomorrow neuro consult appreciated, check echo (2) Hypoxia: Code(s): R09.02 - Hypoxemia Status: Acute Assessment and Plan: weaned to room air, d/c prednisone, monitor (3) Seizure-like activity: Code(s): R56.9 - Unspecified convulsions Status: Acute Assessment and Plan: Patient has probable underlying seizure hx and takes Keppra and divalproex at home. He had witnessed seizure activity 03/02 and he was given 1 gram of Keppra. EEG read as normal. CT brain show no acute findings. Continue Keppra and divalproex. Appreciate neurology input. (4) Elevated troponin: Code(s): R77.8 - Other specified abnormalities of plasma proteins Status: Inactive Assessment and Plan: Troponin elevated to 0.152 here. Troponin appears to be chronically elevated. EKG showing normal sinus rhythm with LVH but no change from prior. EKG was repeated but again showing no acute change. Echo in April showing EF 60-65% and Grade I diastolic dysfunction. Elevated Trop probably related to ESRD, severe HTN. He does have a history of coronary artery disease and has a stent reportedly. Continue ASA, Lipitor, Imdur. Not on beta-agustina possibly due to his lung disease. Continue to monitor but can stop tele. (5) Hypertension: Code(s): I10 - Essential (primary) hypertension Status: Acute Assessment and Plan: The patient presents with complaints of SOB and found to have hypertensive emergency with BP of 214/120. The patient had not taken any of his medications that day. Medications resumed and BP improved. Patient's blood pressure was reviewed on 03/06 Blood pressure remains well controlled. Will continue current medications. Follow. (6) End-stage renal disease on hemodialysis: Code(s): N18.6 - End stage renal disease; Z99.2 - Dependence on renal dialysis Status: Chronic Assessment and Plan: Hemodialysis catheter in the right upper chest. HD on Friday. The patient had partial treatment the day before admission. BNP >30K. CXR clear but patient felt SOB and was hypoxic. Nephrology consulted. Wean O2 as tolerated. Appreciate nephrology input. (7) COPD, frequent exacerbations: Code(s): J44.1 - Chronic obstructive pulmonary disease with (acute) exacerbation Status: Acute Assessment and Plan: resolved, d/c prednisone today after 6 day course (8) Obstructive sleep apnea: Code(s): G47.33 - Obstructive sleep apnea (adult) (pediatric) Status: Acute Assessment and Plan: Stable. Home CPAP resumed. Patient was refusing but did wear NIV last night. Encourage compliance. (9) Tobacco dependence: Code(s): F17.200 - Nicotine dependence, unspecified, uncomplicated Status: Acute Assessment and Plan: the patient was educated about the benefits of smoking cessation. Subjective Date/time seen: 03/06/23 14:25 Interval history: 67yo male with ESRD, CAD, COPD, NIGHAT and HTN who presented to the ED with complaints of shortness of breath during dialysis and with new onset stroke of uncertain age. Weaned to room air, doing better. no overnight events, no complaints. Review of Systems Review of Systems: 12 point review of systems was assessed and was negative except as noted in the HPI Exam Narrative: Temp Pulse Resp BP Pulse Ox O2 Del Method O2 Flow Rate 97.2 F L 87 18 131/57 L 97 Room Air 1 03/06/23 12:00 03/06/23 13:19 06
[2023-03-06] MEDS: ASPIRIN 81 MG ENTERIC TABLET 243 MG PO (15:49)
[2023-03-06] MEDS: lisinopriL 20 MG TABLET 40 MG PO (18:19)
[2023-03-06] MEDS: FAMOTIDINE 20 MG TABLET PO (20:45)
[2023-03-07] VITALS (31 sets, daily range): BP systolic 123–190; BP diastolic 70–125; PULSE 60–90; RESP 16–18; TEMP 36–37.1; O2SAT 95–100
[2023-03-07] MEDS: IPRATROPIUM BR 0.02% INH SOLN 0.5 MG/2.5 ML VIAL INHALATION ×4 (02:00→21:05)
[2023-03-07] MEDS: ALBUTEROL SULFATE NEB 2.5 MG/3 ML INH INHALATION ×3 (02:00→21:05)
[2023-03-07 06:21] LABS: Hematocrit 30.3 % (42.0-52.0); Hemoglobin 10.1 g/dL (14.0-18.0); Mean Corpuscular HGB Conc 33.3 g/dl (32-36); Mean Corpuscular Hemoglobin 33.2 pg (26-34); Mean Corpuscular Volume 99.7 fl (80-100); Mean Platelet Volume 11.4 fl (7.4-10.4); Platelet Count Result 212 k/mm3 (150-375); Red Blood Count 3.04 M/mm3 (4.6-6.20); Red Cell Distribution Width 11.9 % (11.5-14.5)
[2023-03-07 06:26] LABS: Hemoglobin A1C 5.1 % (<5.7)
[2023-03-07 06:29] LABS: Albumin Level 3.5 g/dL (3.5-5.1); Anion Gap 9 mmol/L (8-16); Blood Urea Nitrogen 59 mg/dL (9-20); Calcium 7.9 mg/dL (8.4-10.2); Carbon Dioxide 30 mmol/L (22-30); Chloride 92 mmol/L (98-107); Cholesterol 105 mg/dL (0-200); Estimated CRCL calculation 7 ml/min; Estimated Glomerular Filt Rate 7; Glucose 93 mg/dL (65-110); HDL Direct 68 mg/dL; Phosphorus 4.2 mg/dL (2.5-4.5); Potassium 4.9 mmol/L (3.4-5.0); Sodium 131 mmol/L (137-145); Triglycerides 58 mg/dL (<150)
[2023-03-07 06:43] LABS: LDL Cholesterol Direct < 30 mg/dL
--- NOTE | 2023-03-07 08:45 | PC.NURSE ---
To dialysis via bed.
[2023-03-07] MEDS: FLUTICASONE/SALMETEROL 230-21 MCG INHALER 1 PUFF 2 PUFF INHALATION ×2 (09:01→21:05)
--- NOTE | 2023-03-07 09:10 | PCOTNOTE ---
Patient out of the room at this time. Patient is in dialysis this A.M.
--- NOTE | 2023-03-07 11:15 | PM.PNNEP ---
Progress Note: A&P Assessment and Plan (1) End stage renal disease: Code(s): N18.6 - End stage renal disease Status: Chronic Assessment and Plan: the patient has end-stage renal disease. Dialysis is underway Potassium looks good at 4.9 Volume status looks okay. removing some fluid as tolerated by his blood pressure. (2) Hypertension: Code(s): I10 - Essential (primary) hypertension Status: Chronic Assessment and Plan: Systolic pressure running between 119 and 172. He is on nifedipine 90 and lisinopril 40 , and carvedilol recently added. (3) Acute dyspnea: Code(s): R06.00 - Dyspnea, unspecified Status: Acute Assessment and Plan: This is overall improved. Removing some fluid. He also has COPD. We discussed smoking and he says he will try to stop. (4) Seizure-like activity: Code(s): R56.9 - Unspecified convulsions Status: Acute Assessment and Plan: Dr. Priscila lui saw the patient yesterday. (5) Chronic obstructive pulmonary disease: Code(s): J44.9 - Chronic obstructive pulmonary disease, unspecified Status: Acute Assessment and Plan: The patient has COPD. He has not smoked since he has been in the hospital. He will try to stop at home as well. (6) Tobacco dependence: Code(s): F17.200 - Nicotine dependence, unspecified, uncomplicated Status: Acute Assessment and Plan: hopefully the patient will stop smoking. (7) Erythropoietin deficiency anemia: Code(s): D63.1 - Anemia in chronic kidney disease Status: Acute Assessment and Plan: Hemoglobin today is down in the 10s. Still on the Epogen. (8) Renal osteodystrophy: Code(s): N25.0 - Renal osteodystrophy Status: Acute Assessment and Plan: Phosphorus is normal. Will keep an eye on this Subjective Date/time seen: 03/07/23 11:15 Interval history: the patient feels warm. He is a bit flushed. I had the nurse take his temperature and it was 96.4 axillary. The patient has no shortness of breath. He is on dialysis now and tolerating it well. He was seen at 10:15 a.m. Exam Narrative: WDWN in NAD skin no rash or subcu nodules head ncat lungs clear with increased expiratory phase. cor reg no rub or gallop abd BS+ nontender and soft ext no edema Objective Data Vital Signs Vital Signs: Vital Signs - 24 hr 03/06/23 12:00 03/06/23 13:18 03/06/23 13:19 Temperature 97.2 F L Pulse Rate 75 87 87 Respiratory Rate 20 Blood Pressure 181/82 H 131/57 L Pulse Oximetry 97 Oxygen Delivery Oxygen Flow Rate 03/06/23 13:00 03/06/23 13:10 03/06/23 16:00 Temperature 98.2 F Pulse Rate 98 97 67 Respiratory Rate 18 18 20 Blood Pressure 165/88 H Pulse Oximetry 100 Oxygen Delivery Oxygen Flow Rate 03/06/23 20:54 03/06/23 21:16 03/06/23 21:19 Temperature 97.4 F L Pulse Rate 94 94 Respiratory Rate 16 18 Blood Pressure 170/90 H Pulse Oximetry 96 96 Oxygen Delivery Nasal Cannula Oxygen Flow Rate 2 03/06/23 20:00 03/07/23 00:26 03/06/23 21:35 Temperature 97.5 F L Pulse Rate 72 96 Respiratory Rate 18 18 Blood Pressure 145/96 H Pulse Oximetry 96 100 Oxygen Delivery Nasal Cannula Oxygen Flow Rate 2 03/07/23 02:00 03/07/23 02:12 03/07/23 04:00 Temperature 97.6 F Pulse Rate 87 90 84 Respiratory Rate 18 18 18 Blood Pressure 153/90 H Pulse Oximetry 100 Oxygen Delivery Oxygen Flow Rate 03/07/23 08:00 03/07/23 09:02 03/07/23 08:55 Temperature 96.8 F L Pulse Rate 82 89 Respiratory Rate 16 18 Blood Pressure 170/92 H Pulse Oximetry 98 95 Oxygen Delivery Nasal Cannula Oxygen Flow Rate 2 03/07/23 09:09 03/07/23 08:45 Temperature Pulse Rate 82 Respiratory Rate 18 Blood Pressure Pulse Oximetry 95 Oxygen Delivery Nasal Cannula Oxygen Flow Rate 2 Intake/Output I
--- NOTE | 2023-03-07 11:55 | WPDNEUROPN ---
Progress Note: A&P Assessment and Plan (1) Vertebral artery stenosis: Qualifiers: Laterality: right Qualified Code(s): I65.01 - Occlusion and stenosis of right vertebral artery Code(s): I65.09 - Occlusion and stenosis of unspecified vertebral artery Status: Acute Plan vascular consult if database administration manager consider possible Subjective Date/time seen: 03/07/23 11:55 Interval history: 67 years old right-handed male has been in the hospital for the stroke and end-stage renal disease for which he is receiving the dialysis. Head neck CTA documented old infarct in the right cerebellum skyler and thalamus with severe stenosis of the proximal right vertebral artery and a CT scan of the head documented the changes in the brain as mentioned above. Patient has end-stage renal disease with hypertension and receiving an antihypertensive medication definitely improved if it is okay with the database administration manager vascular intervention at [facility] consult can be obtained with stenting of the vertebral artery can be done or not patient is receiving aspirin and atorvastatin in addition to antihypertensive medications and examination remains stable Objective Data Vital Signs Vital Signs: Vital Signs - 24 hr 03/06/23 12:00 03/06/23 13:18 03/06/23 13:19 Temperature 36.2 C L Pulse Rate 75 87 87 Respiratory Rate 20 Blood Pressure 181/82 H 131/57 L Pulse Oximetry 97 Oxygen Delivery Oxygen Flow Rate 03/06/23 13:00 03/06/23 13:10 03/06/23 16:00 Temperature 36.8 C Pulse Rate 98 97 67 Respiratory Rate 18 18 20 Blood Pressure 165/88 H Pulse Oximetry 100 Oxygen Delivery Oxygen Flow Rate 03/06/23 20:54 03/06/23 21:16 03/06/23 21:19 Temperature 36.3 C L Pulse Rate 94 94 Respiratory Rate 16 18 Blood Pressure 170/90 H Pulse Oximetry 96 96 Oxygen Delivery Nasal Cannula Oxygen Flow Rate 2 03/06/23 20:00 03/07/23 00:26 03/06/23 21:35 Temperature 36.4 C L Pulse Rate 72 96 Respiratory Rate 18 18 Blood Pressure 145/96 H Pulse Oximetry 96 100 Oxygen Delivery Nasal Cannula Oxygen Flow Rate 2 03/07/23 02:00 03/07/23 02:12 03/07/23 04:00 Temperature 36.4 C Pulse Rate 87 90 84 Respiratory Rate 18 18 18 Blood Pressure 153/90 H Pulse Oximetry 100 Oxygen Delivery Oxygen Flow Rate 03/07/23 08:00 03/07/23 09:02 03/07/23 08:55 Temperature 36.0 C L Pulse Rate 82 89 Respiratory Rate 16 18 Blood Pressure 170/92 H Pulse Oximetry 98 95 Oxygen Delivery Nasal Cannula Oxygen Flow Rate 2 03/07/23 09:09 03/07/23 08:45 03/07/23 08:47 Temperature Pulse Rate 82 Respiratory Rate 18 Blood Pressure Pulse Oximetry 95 Oxygen Delivery Nasal Cannula Oxygen Flow Rate 2 2 Intake/Output Intake/Output: Intake & Output 03/04/23 03/05/23 03/06/23 03/07/23 23:59 23:59 23:59 23:59 Intake Total 1440 1520 358 Output Total 100 400 Balance 1340 1520 -42 Meds/Results Medications: Active Medications Generic Name Dose Route Start Last Admin Trade Name Freq PRN Reason Stop Dose Admin Acetaminophen 650 mg 03/01/23 17:58 03/05/23 20:40 Acetaminophen 325 Mg Tablet PO 650 mg Q4H PRN Administration Mild Pain (1-3) or Fever Albuterol 2.5 mg 03/01/23 23:18 03/02/23 16:55 Albuterol Sulfate Neb 2.5 Mg/3 Ml Inh INHALATION 2.5 mg Q6HRT PRN Administration Shortness Of Breath Albuterol 2.5 mg 03/04/23 14:00 03/07/23 09:01 Albuterol Sulfate Neb 2.5 Mg/3 Ml Inh INHALATION 2.5 mg Q6HRT DRAGAN Administration Atorvastatin Calcium 80 mg 03/07/23 09:00 Atorvastatin 40 Mg Tablet PO DAILY DRAGAN Carvedilol 12.5 mg 03/06/23 12:30 03/06/23 20:45 Carvedilol 12.5 Mg Tablet PO 12.5 mg Q12HR DRAGAN Administration Divalproex Sodium 500 mg 03/01/23 23:20 03/06/23 20:45 Divalproex Sodium Er 500 Mg Tab.24h PO 500 mg Q12HR DRAGAN Administration Epoetin Jacques-epbx 10,000 units 03/07/23 10:06
--- NOTE | 2023-03-07 12:55 | PC.NURSE ---
Back from dialysis via bed.
[2023-03-07] MEDS: DIVALPROEX SODIUM ER 500 MG TAB.24H PO ×2 (13:17→21:19)
[2023-03-07] MEDS: ATORVASTATIN 40 MG TABLET 80 MG PO (13:17)
[2023-03-07] MEDS: NIFEdipine 30 MG TAB.ER.24 90 MG PO (13:18)
[2023-03-07] MEDS: levETIRAcetam 250 MG TABLET PO ×2 (13:18→21:19)
[2023-03-07] MEDS: carvediloL 12.5 MG TABLET PO ×2 (13:18→21:19)
[2023-03-07] MEDS: ISOSORBIDE MONONITRATE 30 MG TAB.ER.24H PO (13:18)
[2023-03-07] MEDS: oxyBUTYnin CHLORIDE XL 5 MG TAB.ER.24 10 MG PO (13:21)
[2023-03-07] MEDS: NICOTINE (*PBKC) 21 MG PATCH 1 PATCH TRANSDERM (13:25)
--- NOTE | 2023-03-07 14:41 | ECG_ITS ---
Measurements Intervals [place] Rate: 68 P: 34 [place]: 96 QRS: 42 QRSD: 96 T: 152 QT: 414 QTc: 441 Interpretive Statements SINUS RHYTHM WITH SHORT [place] INTERVAL LEFT VENTRICULAR HYPERTROPHY AND ST-T CHANGE ABNORMAL ECG COMPARED TO ECG 03/02/2023 00:11:18 NO SIGNIFICANT CHANGES Electronically Signed On 03-07-2023 15:12:40 CDT by Jewel Payton M.D.
[2023-03-07] MEDS: MORPHINE SULFATE (*CRX) 4 MG/ML INJ 2 MG IV PUSH (14:53)
[2023-03-07 16:08] LABS: Troponin I 0.067 ng/mL (0.000-0.034)
--- NOTE | 2023-03-07 16:22 | PM.IMPN ---
Progress Note: A&P Assessment and Plan (1) Cerebrovascular accident: Code(s): I63.9 - Cerebral infarction, unspecified Status: Acute Assessment and Plan: new onset cva uncertain age, high intensity statin, full dose aspirin, check CTA head and neck, dialyze tomorrow neuro consult appreciated Echo showed EF 60-65%, grade I diastolic dysfunction, no significant valvular abnormalities, no pulm HTN (2) Hypoxia: Code(s): R09.02 - Hypoxemia Status: Acute Assessment and Plan: weaned to room air, d/c prednisone, monitor (3) Seizure-like activity: Code(s): R56.9 - Unspecified convulsions Status: Acute Assessment and Plan: Patient has probable underlying seizure hx and takes Keppra and divalproex at home. He had witnessed seizure activity 03/02 and he was given 1 gram of Keppra. EEG read as normal. CT brain show no acute findings. Continue Keppra and divalproex. Appreciate neurology input. (4) Elevated troponin: Code(s): R77.8 - Other specified abnormalities of plasma proteins Status: Inactive Assessment and Plan: Troponin elevated to 0.152 here. Troponin appears to be chronically elevated. EKG showing normal sinus rhythm with LVH but no change from prior. EKG was repeated but again showing no acute change. Echo in April showing EF 60-65% and Grade I diastolic dysfunction. Elevated Trop probably related to ESRD, severe HTN. He does have a history of coronary artery disease and has a stent reportedly. Continue ASA, Lipitor, Imdur. Not on beta-agustina possibly due to his lung disease. Continue to monitor but can stop tele. (5) Hypertension: Code(s): I10 - Essential (primary) hypertension Status: Acute Assessment and Plan: The patient presents with complaints of SOB and found to have hypertensive emergency with BP of 214/120. The patient had not taken any of his medications that day. Medications resumed and BP improved. Patient's blood pressure was reviewed on 03/06 Blood pressure remains well controlled. Will continue current medications. Follow. (6) End-stage renal disease on hemodialysis: Code(s): N18.6 - End stage renal disease; Z99.2 - Dependence on renal dialysis Status: Chronic Assessment and Plan: Hemodialysis catheter in the right upper chest. HD on Friday. The patient had partial treatment the day before admission. BNP >30K. CXR clear but patient felt SOB and was hypoxic. Nephrology consulted. Wean O2 as tolerated. Appreciate nephrology input. (7) COPD, frequent exacerbations: Code(s): J44.1 - Chronic obstructive pulmonary disease with (acute) exacerbation Status: Acute Assessment and Plan: resolved, d/c prednisone today after 6 day course (8) Obstructive sleep apnea: Code(s): G47.33 - Obstructive sleep apnea (adult) (pediatric) Status: Acute Assessment and Plan: Stable. Home CPAP resumed. Patient was refusing but did wear NIV last night. Encourage compliance. (9) Tobacco dependence: Code(s): F17.200 - Nicotine dependence, unspecified, uncomplicated Status: Acute Assessment and Plan: the patient was educated about the benefits of smoking cessation (10) Chest pain: Code(s): R07.9 - Chest pain, unspecified Status: Acute Assessment and Plan: elevated troponin, abnormal ECG, suspect pleuritic chest pain, trend troponin--likely elevated from renal failure, will monitor for peak, gave nitro + morphine Plan DVT prophylaxis with heparin GI prophylaxis not indicated Code status full code Subjective Date/time seen: 03/07/23 16:22 Interval history: 67yo male with ESRD, CAD, COPD, NIGHAT and HTN who presented to the ED with complaints of shortness of breath during dialysis and with new onset stroke of uncertain age. Weaned to room air, doing better. no overnight events, now compla
[2023-03-07] MEDS: NITROGLYCERIN SL 0.4 MG TABLET SUBLINGUAL (17:04)
[2023-03-07] MEDS: lisinopriL 20 MG TABLET 40 MG PO (17:05)
[2023-03-07] MEDS: PANTOPRAZOLE 40 MG TABLET PO (17:12)
[2023-03-07 19:51] LABS: Troponin I 0.079 ng/mL (0.000-0.034)
[2023-03-07] MEDS: HEPARIN SODIUM 5,000 UNITS/ML VIAL 5000 UNITS SUB-Q (21:19)
[2023-03-07] MEDS: FAMOTIDINE 20 MG TABLET PO (21:19)
[2023-03-07] MEDS: ACETAMINOPHEN 325 MG TABLET 650 MG PO (21:21)
[2023-03-08] VITALS (15 sets, daily range): BP systolic 100–143; BP diastolic 60–88; PULSE 60–72; RESP 16–20; TEMP 35.7–36.7; O2SAT 93–100
[2023-03-08] MEDS: ALBUTEROL SULFATE NEB 2.5 MG/3 ML INH INHALATION ×2 (02:01→08:29)
[2023-03-08] MEDS: IPRATROPIUM BR 0.02% INH SOLN 0.5 MG/2.5 ML VIAL INHALATION ×2 (02:01→08:29)
[2023-03-08 03:14] LABS: Hepatitis B Core Ab Total Nonreactive (Nonreactive)
[2023-03-08 07:01] LABS: Albumin Level 3.5 g/dL (3.5-5.1); Anion Gap 4 mmol/L (8-16); Blood Urea Nitrogen 41 mg/dL (9-20); Calcium 7.6 mg/dL (8.4-10.2); Carbon Dioxide 35 mmol/L (22-30); Chloride 95 mmol/L (98-107); Estimated CRCL calculation 12 ml/min; Estimated Glomerular Filt Rate 12; Glucose 94 mg/dL (65-110); Phosphorus 3.7 mg/dL (2.5-4.5); Potassium 4.5 mmol/L (3.4-5.0); Sodium 134 mmol/L (137-145)
[2023-03-08] MEDS: FLUTICASONE/SALMETEROL 230-21 MCG INHALER 1 PUFF 2 PUFF INHALATION (08:29)
[2023-03-08] MEDS: oxyBUTYnin CHLORIDE XL 5 MG TAB.ER.24 10 MG PO (08:44)
[2023-03-08] MEDS: ATORVASTATIN 40 MG TABLET 80 MG PO (08:44)
[2023-03-08] MEDS: DIVALPROEX SODIUM ER 500 MG TAB.24H PO (08:46)
[2023-03-08] MEDS: NIFEdipine 30 MG TAB.ER.24 90 MG PO (08:47)
[2023-03-08] MEDS: levETIRAcetam 250 MG TABLET PO (08:47)
[2023-03-08] MEDS: ISOSORBIDE MONONITRATE 30 MG TAB.ER.24H PO (08:47)
[2023-03-08] MEDS: PANTOPRAZOLE 40 MG TABLET PO (08:48)
[2023-03-08] MEDS: carvediloL 12.5 MG TABLET PO (08:48)
[2023-03-08] MEDS: HEPARIN SODIUM 5,000 UNITS/ML VIAL 5000 UNITS SUB-Q (08:52)
[2023-03-08] MEDS: NICOTINE (*PBKC) 21 MG PATCH 1 PATCH TRANSDERM (08:52)
[2023-03-08] MEDS: IBUPROFEN 400 MG TABLET PO (08:57)
--- NOTE | 2023-03-08 09:33 | PM.IMPN ---
Progress Note: A&P Assessment and Plan (1) Cerebrovascular accident: Code(s): I63.9 - Cerebral infarction, unspecified Status: Acute Assessment and Plan: new onset cva uncertain age, high intensity statin, full dose aspirin, CTA showed severe stenosis of right vertebral artery, transfer pending for vascular surgery consultation neuro consult appreciated Echo showed EF 60-65%, grade I diastolic dysfunction, no significant valvular abnormalities, no pulm HTN (2) Hypoxia: Code(s): R09.02 - Hypoxemia Status: Acute Assessment and Plan: weaned to room air, d/c prednisone, monitor (3) Seizure-like activity: Code(s): R56.9 - Unspecified convulsions Status: Acute Assessment and Plan: Patient has probable underlying seizure hx and takes Keppra and divalproex at home. He had witnessed seizure activity 03/02 and he was given 1 gram of Keppra. EEG read as normal. CT brain show no acute findings. Continue Keppra and divalproex. Appreciate neurology input. (4) Elevated troponin: Code(s): R77.8 - Other specified abnormalities of plasma proteins Status: Inactive Assessment and Plan: Troponin elevated to 0.152 here. Troponin appears to be chronically elevated. EKG showing normal sinus rhythm with LVH but no change from prior. EKG was repeated but again showing no acute change. Echo in April showing EF 60-65% and Grade I diastolic dysfunction. Elevated Trop probably related to ESRD, severe HTN. He does have a history of coronary artery disease and has a stent reportedly. Continue ASA, Lipitor, Imdur. Not on beta-agustina possibly due to his lung disease. Continue to monitor but can stop tele. (5) Hypertension: Code(s): I10 - Essential (primary) hypertension Status: Acute Assessment and Plan: The patient presents with complaints of SOB and found to have hypertensive emergency with BP of 214/120. The patient had not taken any of his medications that day. Medications resumed and BP improved. Patient's blood pressure was reviewed on 03/06 Blood pressure remains well controlled. Will continue current medications. Follow. (6) End-stage renal disease on hemodialysis: Code(s): N18.6 - End stage renal disease; Z99.2 - Dependence on renal dialysis Status: Chronic Assessment and Plan: Hemodialysis catheter in the right upper chest. HD on Friday. The patient had partial treatment the day before admission. BNP >30K. CXR clear but patient felt SOB and was hypoxic. Nephrology consulted. Wean O2 as tolerated. Appreciate nephrology input. (7) COPD, frequent exacerbations: Code(s): J44.1 - Chronic obstructive pulmonary disease with (acute) exacerbation Status: Acute Assessment and Plan: resolved, d/c prednisone today after 6 day course (8) Obstructive sleep apnea: Code(s): G47.33 - Obstructive sleep apnea (adult) (pediatric) Status: Acute Assessment and Plan: Stable. Home CPAP resumed. Patient was refusing but did wear NIV last night. Encourage compliance. (9) Tobacco dependence: Code(s): F17.200 - Nicotine dependence, unspecified, uncomplicated Status: Acute Assessment and Plan: the patient was educated about the benefits of smoking cessation (10) Chest pain: Code(s): R07.9 - Chest pain, unspecified Status: Acute Assessment and Plan: elevated troponin, abnormal ECG, suspect pleuritic chest pain, trend troponin--likely elevated from renal failure, will monitor for peak, gave nitro + morphine Plan DVT prophylaxis with heparin GI prophylaxis not indicated Code status full code 03/08: 9:30am called [facility] for transfer to vascular surgery consultation 9:41am vascular surgery recommending discharge home and outpatient follow up if patient is stable, left vertebral artery intact and no need for urgent intervention on
--- NOTE | 2023-03-08 09:51 | PM.DS ---
DS: Admitting Diagnosis Discharge Date 03/08/2023 Admitting Diagnosis Shortness of breath DS: Discharge Diagnosis Discharge Diagnosis (1) Cerebrovascular accident: Code(s): I63.9 - Cerebral infarction, unspecified Status: Acute Assessment and Plan: new onset cva uncertain age, high intensity statin, full dose aspirin, CTA showed severe stenosis of right vertebral artery, transfer pending for vascular surgery consultation neuro consult appreciated Echo showed EF 60-65%, grade I diastolic dysfunction, no significant valvular abnormalities, no pulm HTN (2) Hypoxia: Code(s): R09.02 - Hypoxemia Status: Acute Assessment and Plan: weaned to room air, d/c prednisone, monitor (3) Seizure-like activity: Code(s): R56.9 - Unspecified convulsions Status: Acute Assessment and Plan: Patient has probable underlying seizure hx and takes Keppra and divalproex at home. He had witnessed seizure activity 03/02 and he was given 1 gram of Keppra. EEG read as normal. CT brain show no acute findings. Continue Keppra and divalproex. Appreciate neurology input. (4) Elevated troponin: Code(s): R77.8 - Other specified abnormalities of plasma proteins Status: Acute Assessment and Plan: Troponin elevated to 0.152 here. Troponin appears to be chronically elevated. EKG showing normal sinus rhythm with LVH but no change from prior. EKG was repeated but again showing no acute change. Echo in April showing EF 60-65% and Grade I diastolic dysfunction. Elevated Trop probably related to ESRD, severe HTN. He does have a history of coronary artery disease and has a stent reportedly. Continue ASA, Lipitor, Imdur. Not on beta-agustina possibly due to his lung disease. Continue to monitor but can stop tele. (5) Hypertension: Code(s): I10 - Essential (primary) hypertension Status: Acute Assessment and Plan: The patient presents with complaints of SOB and found to have hypertensive emergency with BP of 214/120. The patient had not taken any of his medications that day. Medications resumed and BP improved. Patient's blood pressure was reviewed on 03/06 Blood pressure remains well controlled. Will continue current medications. Follow. (6) End-stage renal disease on hemodialysis: Code(s): N18.6 - End stage renal disease; Z99.2 - Dependence on renal dialysis Status: Chronic Assessment and Plan: Hemodialysis catheter in the right upper chest. HD on Friday. The patient had partial treatment the day before admission. BNP >30K. CXR clear but patient felt SOB and was hypoxic. Nephrology consulted. Wean O2 as tolerated. Appreciate nephrology input. (7) COPD, frequent exacerbations: Code(s): J44.1 - Chronic obstructive pulmonary disease with (acute) exacerbation Status: Acute Assessment and Plan: resolved, d/c prednisone today after 6 day course (8) Obstructive sleep apnea: Code(s): G47.33 - Obstructive sleep apnea (adult) (pediatric) Status: Acute Assessment and Plan: Stable. Home CPAP resumed. Patient was refusing but did wear NIV last night. Encourage compliance. (9) Tobacco dependence: Code(s): F17.200 - Nicotine dependence, unspecified, uncomplicated Status: Acute Assessment and Plan: the patient was educated about the benefits of smoking cessation (10) Chest pain: Code(s): R07.9 - Chest pain, unspecified Status: Acute Assessment and Plan: elevated troponin, abnormal ECG, suspect pleuritic chest pain, trend troponin--likely elevated from renal failure, will monitor for peak, gave nitro + morphine resolved, do not suspect acute cardiac etiology, likely GERD vs msk etiology with possible pleuritic component from COPD exac Plan DVT prophylaxis with heparin GI prophylaxis not indicated Code status full code 03/08: 9:3
--- NOTE | 2023-03-08 10:13 | PM.PNNEP ---
Progress Note: A&P Assessment and Plan (1) End stage renal disease: Code(s): N18.6 - End stage renal disease Status: Chronic Assessment and Plan: the patient has end-stage renal disease. Potassium looks good at 4.5 Volume status looks okay. (2) Hypertension: Code(s): I10 - Essential (primary) hypertension Status: Chronic Assessment and Plan: Systolic pressure 100 to 140. He is on nifedipine 90, lisinopril 40, and carvedilol 12.5 bid. (3) Acute dyspnea: Code(s): R06.00 - Dyspnea, unspecified Status: Acute Assessment and Plan: This is overall improved. Removed some fluid yesterday a bit more than 2L. He also has COPD. We discussed smoking and he says he will try to stop. (4) Seizure-like activity: Code(s): R56.9 - Unspecified convulsions Status: Acute Assessment and Plan: Neuro saw the patient yesterday. no new findings on imaging except nondominant vertebral stenosis. Dr Cuellar talked wi vascular who feels no stent needed and will see in the office. continue statin, plavix, aspirin (5) Chronic obstructive pulmonary disease: Code(s): J44.9 - Chronic obstructive pulmonary disease, unspecified Status: Acute Assessment and Plan: The patient has COPD. He has not smoked since he has been in the hospital. He will try to stop at home as well. (6) Tobacco dependence: Code(s): F17.200 - Nicotine dependence, unspecified, uncomplicated Status: Acute Assessment and Plan: hopefully the patient will stop smoking. (7) Erythropoietin deficiency anemia: Code(s): D63.1 - Anemia in chronic kidney disease Status: Acute Assessment and Plan: Hemoglobin still below 11. Still on the Epogen. (8) Renal osteodystrophy: Code(s): N25.0 - Renal osteodystrophy Status: Acute Assessment and Plan: Phosphorus is normal. Subjective Date/time seen: 03/08/23 10:13 Interval history: the patient is babling again today. lying in bed he has some sharp very localized chest pain. it not tender to palpation. it urtes with torso movement (for instance when I helped him up to listen to his lungs). trops flat. Dr Marrero talked with cardio who feels it is not cardiac. I asked nursing to give him one motrin 400. I talked with Dr Cuellar. this could also be pleuritic and she is treating him with some levaquin as well. Exam Narrative: WDWN in NAD skin no rash or subcu nodules head ncat lungs clear with increased expiratory phase. chest wall nontender. very localized area of pain. cor reg no rub or gallop abd BS+ nontender and soft ext no edema Objective Data Vital Signs Vital Signs: Vital Signs - 24 hr 03/07/23 13:18 03/07/23 13:50 03/07/23 14:00 Temperature Pulse Rate 73 80 83 Respiratory Rate 18 18 Blood Pressure Pulse Oximetry Oxygen Delivery Oxygen Flow Rate 03/07/23 14:55 03/07/23 10:20 03/07/23 10:40 Temperature 97.9 F Pulse Rate 73 87 78 Respiratory Rate 16 Blood Pressure 183/96 H 190/125 H 151/89 H Pulse Oximetry 98 Oxygen Delivery Oxygen Flow Rate 03/07/23 11:00 03/07/23 11:20 03/07/23 11:40 Temperature Pulse Rate 80 62 62 Respiratory Rate Blood Pressure 123/88 132/74 151/87 H Pulse Oximetry Oxygen Delivery Oxygen Flow Rate 03/07/23 12:00 03/07/23 12:20 03/07/23 12:33 Temperature Pulse Rate 71 71 75 Respiratory Rate Blood Pressure 160/102 H 143/86 H 166/106 H Pulse Oximetry Oxygen Delivery Oxygen Flow Rate 03/07/23 12:45 03/07/23 16:00 03/07/23 20:00 Temperature 98.0 F 96.8 F L Pulse Rate 60 69 67 Respiratory Rate 16 16 Blood Pressure 161/86 H 155/89 H Pulse Oximetry 97 Oxygen Delivery Oxygen Flow Rate 03/07/23 21:00 03/07/23 21:00 03/07/23 21:17 Temperature Pulse Rate 62 62 83 Respiratory Rate 18 18 Blood Pr
--- NOTE | 2023-03-08 10:33 | PM.EVENT ---
Event Note Event Note Event Note: Late Entry Pt on HD. jeni it well seen on 03/07/23 at 10:30am. BP a bit high in the 170s. we are taking off fluid. I asked nurse to give clonidine prn if bp should rise later in the treatment.
--- NOTE | 2023-03-08 10:37 | PM.CNCAR ---
Assessment and Plan Assessment and plan (1) Abnormal ECG: Code(s): R94.31 - Abnormal electrocardiogram [ECG] [EKG] Status: Acute Assessment and Plan: His EKG is not significantly changed from previous. He is significant LVH and repolarization abnormalities from the left ventricular hypertrophy. No clear evidence of acute coronary syndrome. (2) Coronary artery disease: Code(s): I25.10 - Atherosclerotic heart disease of [place] coronary artery without angina pectoris Status: Acute Assessment and Plan: Does have some chest pain today. Will repeat a troponin but likely his chest pain is related to marked hypertension. Continue aspirin, statin, isosorbide, lisinopril, nifedipine. I will increase his isosorbide to 60 mg daily (3) End stage renal disease: Code(s): N18.6 - End stage renal disease Status: Chronic Assessment and Plan: Per Dr. Nagy (4) Elevated troponin: Code(s): R77.8 - Other specified abnormalities of plasma proteins Status: Acute Assessment and Plan: Unlikely related to acute coronary syndrome. He has chronically elevated troponins related to a combination of end-stage renal disease, hypertension. History of Present Illness History of Present Illness Consult date/time: 03/08/23 10:37 Requesting physician: Susanna Marrero DO Consult reason: chest pain and Other (elevated troponin) Reason For Visit: Uncontrolled Hypertension/Dialysis Patient Narrative: Date of service 03/08/2023 Reason consultation: Elevated troponin, chest pain Requesting provider: Dr. Gomez History patient is a 67-year-old male who was admitted because of shortness of breath during dialysis. Patient dialyzes Friday. He did have some chest pain yesterday and tightness. He had a troponin ordered which is slightly elevated. He does have chronically elevated troponins. He has marked hypertension. He reportedly does have a history of coronary artery disease and follows with Dr. Gomez. He denies any syncope, presyncope, paroxysmal nocturnal dyspnea, orthopnea, edema or palpitations. He has been having some shortness of breath as well as chest pain even today. He has marked hypertension today and is scheduled for dialysis and is going to receive clonidine. Troponins are not rising. Review of Systems Review of Systems: All systems reviewed & are unremarkable except as noted in HPI and below Constitutional: Constitutional: Denies body ache(s) Eyes: Eyes: Denies blurry vision ENT: Reports Normal hearing present Cardiovascular: Cardiovascular: Reports chest pain and Denies leg edema Respiratory: Respiratory: Reports dyspnea Gastrointestinal: Gastrointestinal: Denies abdominal pain Genitourinary: Genitourinary: Denies hematuria Musculoskeletal: Musculoskeletal: Denies back pain Integumentary/Breasts: Skin/Breast: Denies erythema Neurologic: Denies Abnormal speech present Psychiatric: Psychiatric: Denies anxiety Endocrine: Endocrine: Denies excessive sweating Hematologic/Lymphatic: Hematologic/Lymphatic: Denies easy bleeding Allergic/Immunologic: Allergic/Immunologic: Denies GI upset with certain foods PMFSH Past Medical History Medical History (Updated 03/08/23 @ 10:44 by Carlo Rios MD) Cerebrovascular accident Chronic obstructive pulmonary disease Coronary artery disease COVID-19 (02/2022) Elevated troponin End-stage renal disease on hemodialysis Friday Erythropoietin deficiency anemia Facial edema GERD with esophagitis Hyperlipidemia Hypertension Obstructive sleep apnea Pacemaker Peripheral vascular disease Renal osteodystrophy Seizure-like activity Normal EEG in April 2022 though patient is on levetiracetam. Shortness of breath Tobacco abuse Surgical History Surgical History History of percutaneous coronary intervention Iliac
[2023-03-08] MEDS: levoFLOXacin 750 MG TABLET PO (11:07)
[2023-03-08 13:15] LABS: Troponin I 0.053 ng/mL (0.000-0.034)
== END 2023-03-08 13:30 | disposition home or self-care (01) | DRG 140 ==
LOC: ANHED 17:02 → ANH3MEDSUR 19:02
PROVIDERS: Internal Medicine; Internal Medicine Cardiovascular Disease; Internal Medicine Nephrology; Nurse Practitioner; Admitting Provider Hospitalist; Emergency Provider Emergency Medicine; PCP Nurse Practitioner; Visit Provider Student in an Organized Health Care Education/Training Program
DX: J44.1 Chronic obstructive pulmonary disease with (acute) exacerbation (principal); I12.0 Hypertensive chronic kidney disease with stage 5 chronic kidney disease or end stage renal disease; R56.9 Unspecified convulsions; I65.01 Occlusion and stenosis of right vertebral artery; N25.0 Renal osteodystrophy; I16.1 Hypertensive emergency; N18.6 End stage renal disease; D63.1 Anemia in chronic kidney disease; E78.5 Hyperlipidemia, unspecified; F17.210 Nicotine dependence, cigarettes, uncomplicated; G47.33 Obstructive sleep apnea (adult) (pediatric); I73.9 Peripheral vascular disease, unspecified; I25.10 Atherosclerotic heart disease of native coronary artery without angina pectoris; K21.00 Gastro-esophageal reflux disease with esophagitis, without bleeding; H05.229 Edema of unspecified orbit; K21.9 Gastro-esophageal reflux disease without esophagitis; R09.02 Hypoxemia; R94.31 Abnormal electrocardiogram [ECG] [EKG]; R77.8 Other specified abnormalities of plasma proteins; R07.9 Chest pain, unspecified; Z79.82 Long term (current) use of aspirin; Z86.73 Personal history of transient ischemic attack (TIA), and cerebral infarction without residual deficits; Z95.5 Presence of coronary angioplasty implant and graft; Z86.16 Personal history of COVID-19; Z99.2 Dependence on renal dialysis; Z95.0 Presence of cardiac pacemaker; Z91.148 Patient's other noncompliance with medication regimen for other reason; Z99.89 Dependence on other enabling machines and devices
CPT/HCPCS: 36415; 36600; 70450; 70496; 70498; 71045; 71046; 80053; 80061; 80069; 81001; 82805; 82948; 83036; 83605; 83735; 83880; 84443; 84484; 85025; 85027; 85610; 86704; 86706; 87070; 87205; 87340; 93005; 93306; 94640; 94660; 95816; 96374; 96375; 96376; 97161; 97165; 97530; 97535; 99285; A9270; G0257; G0378; G0379; J0360; J1630; J1644; J1940; J1953; J2270; J7030; J7512; Q9967

== ENCOUNTER 2023-03-16 12:20 | Observation (INO) | payer OTHER, SELFPAY ==
[2023-03-16] VITALS (17 sets, daily range): BP systolic 131–197; BP diastolic 74–107; PULSE 69–135; RESP 20–32; TEMP 36.6–36.9; O2SAT 97–100; BMI 19.0; BMI 19.1
--- NOTE | ~2023-03-16 | XR_ITS ---
Portable chest x-ray Comparison: 03/05/2023 Clinical History: Shortness of breath Findings: Right-sided central venous line is in satisfactory position. Lungs are clear, without foca l consolidation or pleural effusion. Possible COPD. Cardiomediastinal silhouette is stable, with pac emaker device. Bones and soft tissues are unremarkable. Impression: Possible COPD. Clear lungs. Support line and pacemaker device, as above. Reviewed, dictated and finalized at location [facility]. Impression: Possible COPD. Clear lungs. Support line and pacemaker device, as above.
--- NOTE | ~2023-03-16 | CT_ITS ---
Non-contrast CT scan of the Abdomen and Pelvis Clinical indication: Abdominal pain Technique: 2.5 mm axial scans were obtained through the abdomen and pelvis without intravenous or or al contrast. Dose reduction technique was used on this scan by utilizing automated exposure control a nd iterative reconstruction technique. The dose-length product (DLP) was 327.37 mGy-cm. COMPARISON: 07/29/2022 Findings: Images through the lung bases reveal probable mild emphysema. There is no evidence of renal or ureteral calculi. The kidneys and the ureters are nondilated. The liver, spleen, pancreas, gallbladder, and right adrenal gland appear normal. Stable low-density l eft adrenal nodule, consistent with adenoma. There are atherosclerotic calcifications of the aorta. There is no evidence of bowel obstruction. Images through the pelvis were performed. There is no evidence of ascites or lymphadenopathy. Urinary bladder unremarkable. Prostate gland and seminal vesicles are unremarkable. Impression: No acute abnormality seen. Stable left adrenal adenoma. Probable mild emphysema. Reviewed, dictated and finalized at [facility]. Impression: No acute abnormality seen. Stable left adrenal adenoma. Probable mild emphysema.
--- NOTE | ~2023-03-16 | CT_ITS ---
CT head without contrast Indication: Syncope, head injury COMPARISON: 03/06/2023 Technique: Serial scans were obtained through the brain without the administration of contrast. Dose reduction technique was used on this scan by utilizing automated exposure control and iterative recon struction technique. The dose-length product (DLP) was 605.33 mGy-cm. Findings: There is no evidence of intracranial hemorrhage, mass lesion, or acute infarct. Multiple sm all chronic lacunar infarcts in the skyler and left thalamus. The ventricles and subarachnoid spaces ar e dilated, consistent with mild atrophy. There is no evidence of edema, mass effect or midline shif t. The visualized paranasal sinuses and mastoid air cells are clear. Impression: No intracranial hemorrhage, mass, or acute infarct. Stable small chronic lacunar infarcts, as above. Mild generalized atrophy. Reviewed, dictated and finalized at [facility]. Impression: No intracranial hemorrhage, mass, or acute infarct. Stable small chronic lacunar infarcts, as above. Mild generalized atrophy.
--- NOTE | 2023-03-16 12:24 | ECG_ITS ---
Measurements Intervals [place] Rate: 80 P: 54 WV: 130 QRS: 52 QRSD: 78 T: 123 QT: 388 QTc: 448 Interpretive Statements SINUS RHYTHM ST DEVIATION AND MODERATE T-WAVE ABNORMALITY, CONSIDER INFEROLATERAL ISCHEMIA [-0.1+ mV T WAVE IN I/aVL/V5/V6] ABNORMAL ECG COMPARED TO ECG 03/07/2023 15:04:48 NO SIGNIFICANT CHANGES Electronically Signed On 03-17-2023 10:35:04 CDT by Carlo Rios M.D.
[2023-03-16 12:43] LABS: Basophils Absolute Auto 0.1 K/mm3 (0.0-0.1); Basophils Percent Auto 0.7 % (0.2-1.2); Eosinophils Absolute Auto 0.5 K/mm3 (0-0.3); Eosinophils Percent Auto 3.6 % (0-4.4); Hematocrit 31.8 % (42.0-52.0); Hemoglobin 10.4 g/dL (14.0-18.0); Immature Granulocyte Absolute 0.07 K/mm3 (0.00-0.031); Immature Granulocyte Percent A 0.6 % (0-0.5); Lymphocytes Absolute Auto 2.18 K/mm3 (0.9-3.2); Lymphocytes Percent Auto 17.7 % (18.3-44.2); Mean Corpuscular HGB Conc 32.7 g/dl (32-36); Mean Corpuscular Hemoglobin 33.3 pg (26-34); Mean Corpuscular Volume 101.9 fl (80-100); Mean Platelet Volume 10.8 fl (7.4-10.4); Monocytes Absolute Auto 0.9 K/mm3 (0.1-0.6); Neutrophils Absolute Auto 8.7 K/mm3 (1.3-6.7); Neutrophils Percent Auto 70.4 % (45.5-73.1); Platelet Count Result 210 k/mm3 (150-375); Red Blood Count 3.12 M/mm3 (4.6-6.20); Red Cell Distribution Width 12.6 % (11.5-14.5); White Blood Count 12.4 K/mm3 (4.5-10.0)
[2023-03-16 12:52] LABS: Alanine Aminotransferase 32 U/L (6-50); Alkaline Phosphatase 80 U/L (38-126); Anion Gap 8 mmol/L (8-16); Aspartate Amino Transferase 26 U/L (17-59); Bilirubin,Total 0.5 mg/dL (0.2-1.3); Blood Urea Nitrogen 47 mg/dL (9-20); Calcium 8.8 mg/dL (8.4-10.2); Carbon Dioxide 28 mmol/L (22-30); Chloride 100 mmol/L (98-107); Estimated CRCL calculation 7 ml/min; Estimated Glomerular Filt Rate 7; Glucose 92 mg/dL (65-110); Potassium 4.8 mmol/L (3.4-5.0); Sodium 136 mmol/L (137-145)
--- NOTE | 2023-03-16 15:34 | PC.NURSE ---
patient continuously trying to attempt to walk around in triage after being told to please stay seated and ask for help when needed.
[2023-03-16 16:41] LABS: Alveolar/Arterial O2 Gradient 23.7 mmHg; Base Excess ABG 0.7 mEq/l (+/-2.0); Carboxyhemoglobin 1.6 % THb (0-2.0); Fractional Inspired Oxygen 21 %; HCO3 ABG 24.4 mEq/l (22.0-26.0); Oxygen Content ABG 14.2 %vol (16.0-22.0); Oxygen Saturation ABG 96.8 % (95.0-100.0); PCO2 ABG 35.5 mmHg (35.0-45.0); PO2 ABG 83.5 mmHg (80.0-100.0); PO2 FiO2 Ratio Arterial Blood 3.98 %; Reduced Hemoglobin 4.4 %THb (0-5.0); Total Hemoglobin 10.7 g/dL (12.0-18.0); pH ABG 7.455 (7.350-7.450)
[2023-03-16 16:42] LABS: Modified Allen's Test Pass; Site Drawn RIGHT RADIAL
[2023-03-16] MEDS: ALBUTEROL SULFATE NEB 2.5 MG/3 ML INH 10 MG INHALATION (16:50)
[2023-03-16 17:50] LABS: Lactic Acid Reflex 0.9 mmol/L (0.7-2.0)
--- NOTE | 2023-03-16 17:51 | ED.SYNCOPE ---
HPI - Syncope General Chief Complaint: Syncope Stated Complaint: syncope Time Seen by Provider: 03/16/23 15:01 Source: patient, EMS and RN notes reviewed Mode of arrival: EMS Limitations: other (poor historian) History of Present Illness HPI narrative: This is a 67 year old male with history of poorly controlled hypertension, ESRD on dialysis MWF, CVA who presents from home for evaluation of a syncopal episode. Patient states he was walking when he felt dizzy. Patient thinks he passed out. I spoke with his son on the phone and he states he found patient on his hands and his knees after he got out of the shower. Afterwards he was helping him to get up, so he sat him against the refrigerator. He states when sat him on the refrigerator patient had his eyes open and he slumped over but he was able to ask for a cigarette 2 seconds later. He states patient was able to get up and walk around after that. He states patient today him he felt like his blood pressure was low. Patient reports cough and abdominal pain from coughing. He denies chest pain. He is poor historian so he is unsure of history of syncope. Related Data Home Medications Medication Instructions Recorded Confirmed famotidine 20 mg tablet 20 mg PO HS 03/19/22 03/16/23 nifedipine 90 mg tablet,extended 90 mg PO DAILY 03/19/22 03/16/23 release oxybutynin chloride 10 mg 10 mg PO DAILY 03/19/22 03/16/23 tablet,extended release 24 hr umeclidinium 62.5 mcg/actuation 1 inh inhalation DAILY 03/24/22 03/16/23 blister powder for inhalation (Incruse Ellipta) fluticasone 500 mcg-salmeterol 50 1 inh inhalation BID 04/24/22 03/16/23 mcg/dose blistr powdr for inhalation (Advair Diskus) Allergies Allergy/AdvReac Type Severity Reaction Status Date / Time No Known Allergies Allergy Verified 03/16/23 17:29 [facility] Past Medical History Medical History (Updated 03/16/23 @ 22:46 by Henna Renee MD) Cerebrovascular accident Chronic obstructive pulmonary disease Coronary artery disease COVID-19 (02/2022) Elevated troponin End-stage renal disease on hemodialysis Friday Erythropoietin deficiency anemia Facial edema GERD with esophagitis Hyperlipidemia Hypertension Obstructive sleep apnea Pacemaker Peripheral vascular disease Renal osteodystrophy Seizure-like activity Normal EEG in April 2022 though patient is on levetiracetam. Shortness of breath Tobacco abuse Surgical History Surgical History History of percutaneous coronary intervention Iliac stent. Cardiac stents. History of permanent cardiac pacemaker placement S/P hemodialysis catheter insertion Family History Family History Father Cancer of lung Mother Heart failure Social History Social History Social History: the patient tells me that he lives with his son. The patient continues to smoke a pack a cigarettes a day. He is listed as single and unemployed Healthcare power of document review attorney: Von Donahue, son. Code status: Full code. Smoking packs per day: 1 Smoking cigarettes per day: 20.0 Years smoked: 50 Smoking pack-years: 50.00 Smoking status: Current every day smoker Tobacco type: cigarettes Second hand tobacco smoke exposure: No Alcohol intake: never Substance use: never Substance use type: does not use Lack of Transportation: No Lack of Food: Never True Current Housing: I Have Housing Concerned About Future Housing: No Difficulty Paying Gas/Electric Bills: No Difficulty Paying for Meds: No Currently Unemployed: No Education: Grade School Difficulty w/ Childcare or Family Care: No Additional living arrangements comments: The patient lives in [place]. His son Von lives at home with him. Spiritual care concerns: No Exam Const: General: [place]
[2023-03-16 18:08] LABS: Valproic Acid 42.2 ug/mL (50-120)
[2023-03-16 18:21] LABS: Influenza A QL RT-PCR Negative (Negative); Influenza B QL RT-PCR Negative (Negative); SARS-CoV-2 RNA PCR Negative (Negative)
--- NOTE | 2023-03-16 19:50 | PC.NURSE ---
Report received from JIM Higgins. Assumed care of patient at this time.
[2023-03-16] MEDS: methylPREDNISolone SOD SUCC 125 MG VIAL IV PUSH (20:06)
[2023-03-16] MEDS: hydrALAZINE HCL 20 MG/ML VIAL 10 MG IV PUSH (20:08)
[2023-03-16] MEDS: cloNIDine HCL 0.1 MG TABLET 0.2 MG PO (20:15)
--- NOTE | 2023-03-16 21:12 | PC.NURSE ---
[id number] Attempted to call report, was told the nurse will call back.
[2023-03-16 21:23] LABS: Appearance Urine Clear (Clear); Bacteria Urine None Seen /hpf; Bilirubin Urine Negative (Negative); Blood Urine Negative (Negative); Color Urine Yellow (Yellow); Glucose Urine UA Negative (Negative); Ketones Urine Negative (Negative); Leukocyte Esterase Ur Negative LEU/UL (Negative); Nitrate Urine Negative (Negative); Non Pathogenic Casts 0-2; Protein Urine 2+ mg/dL (Negative); RBC Urine 0-2 /hpf (0-2); Specific Grav Ur 1.011 (1.001-1.035); Squamous Epithelial Cell Urine None seen /hpf (Few); Urobilinogen Urine 0.2 mg/dL (<2.0); WBC Urine 0-5 /hpf; pH Urine 7.5 (5.0-9.0)
--- NOTE | 2023-03-16 21:28 | PC.NURSE ---
2119 and 2124 attempted to call report, no answer. Charge nurse aware and house sup aware, called 3rd MS charge and informed patient is on his way up.
[2023-03-16 21:38] LABS: Add Urine Microscopic? YES
[2023-03-17] VITALS (32 sets, daily range): BP systolic 131–174; BP diastolic 77–99; PULSE 60–84; RESP 16–22; TEMP 36–37.4; O2SAT 94–99; BMI 19.1
--- NOTE | 2023-03-17 01:37 | PM.IMHP ---
H&P: HPI History of Present Illness Date/Time: 03/17/23 01:37 Chief Complaint: Passing out Narrative: 67-year-old male with a past medical history end-stage renal disease on hemodialysis essential hypertension, stroke and COPD presented to the ER from home due to possible syncopal episode. ER provider obtain some of the information from the patient's son who stated that the patient had been in the bathroom taking a shower. He went to check on the patient and found the patient on his hands and knees. We set the patient back he seemed to slump to the side for a few seconds and had his eye staring off. However after a few seconds the patient then asked for cigarette and was able to get up and walk around. The patient's stated that he felt like his blood pressure was low. Rib however on arrival to the ER the patient's blood pressure was uncontrolled with blood pressure of 183/104. Patient was unclear on whether not he had taken his home medications. He states he is post have someone come in to help set up his medications but this is not occurred. He denies any chest pain. He has been having some shortness of breath and some coughing. He has been having some abdominal discomfort due to his coughing. The patient is alert oriented x3 but is a relatively poor historian. The patient reports that he has been have difficulty walking. He reports that he has to shuffle his feet in any little exertion causes significant increased shortness of breath ever since he was last discharged from the hospital last week. He is unsure if he has had any chest pain prior to his syncope. He did have some chest pain that he cannot will characterize earlier in the morning. He was having sensation of lightheadedness prior to having his syncope. Infected sounds as if the patient may have been near syncopal and may not have completely lost consciousness the 1st time. He thinks he completely lost conscious the 2nd time but is unsure. He has poor recall of events. He currently is reporting a generalized headache like his blood pressure is too high. He denies any chest pain currently but does report pain due to coughing. He reports he has been having increased cough over the last week. He is does still continue to smoke despite having increased cough. The cough is relatively nonproductive. The son had denied the patient having any tremors, shaking or seizure-like activity. The patient did not have any loss of bowel or bladder control. The patient arrived to the ER with markedly elevated blood pressures. The patient is unclear as to whether not he has been taking his medications as directed. It sounds as if he was told during his dialysis session last Friday that his blood pressures were dangerously low. I do not know if the patient's blood pressure meds were recently changed. The patient reports that he does still have copious amounts of urine output despite is chronic renal failure. He denies any dysuria but has chronic urgency and frequency. Review of Systems Review of Systems: 12 systems were reviewed with pertinent positives and negatives per HPI. Except as documented in the HPI, all other systems were reviewed and are negative. [facility] Past Medical History Medical History (Updated 03/17/23 @ 01:47 by Jyothi Alston DO) Cerebrovascular accident Chronic obstructive pulmonary disease Coronary artery disease COVID-19 (02/2022) Elevated troponin End-stage renal disease on hemodialysis Friday Erythropoietin deficiency anemia Facial edema GERD with esophagitis Hyperlipidemia Hypertension Obstructive sleep apnea Pacemaker Peripheral vascular disease Renal osteodystrophy Seizure-like activity Normal EEG in April 2022 though patient is on levetiracetam. Shortness of breath Tobacco abuse Vertebral artery stenosis Surgical History Surgical History History of percutaneous peacock
[2023-03-17] MEDS: ALBUTEROL SULFATE NEB 2.5 MG/3 ML INH INHALATION ×4 (02:00→20:25)
[2023-03-17] MEDS: ACETAMINOPHEN 325 MG TABLET 650 MG PO ×3 (02:29→21:16)
--- NOTE | 2023-03-17 05:48 | ADMGEN ---
This patient, Sachin Donahue, was admitted to [facility] Surg Room 314-02. Patient/family oriented to hospital policies and general routines including ID bracelet, bed and alarms, visiting hours, pain management, procedures, bathroom and other care routines, personal items, smoking policy, room service/diet, and visiting hours. Information on how to activate the Rapid Response Team has been discussed. Patient/Family are encouraged to report perceived risks to care and to ask questions if they do not understand what they are told or what they should do.
--- NOTE | 2023-03-17 06:19 | PC.NURSE ---
Pt is able to turn off his bed alarm on zone 2. Pt educated multiple times on the alarms are for his safety. Pt denies turning off his alarms.
[2023-03-17 07:43] LABS: Hepatitis B Surface Antigen Negative (Negative)
[2023-03-17] MEDS: ISOSORBIDE MONONITRATE 60 MG TAB.ER.24H PO (07:59)
[2023-03-17] MEDS: predniSONE 20 MG TABLET 60 MG PO (07:59)
[2023-03-17] MEDS: DIVALPROEX SODIUM ER 250 MG TAB.24H 750 MG PO ×2 (07:59→21:17)
[2023-03-17] MEDS: levETIRAcetam 250 MG TABLET PO ×2 (07:59→21:17)
[2023-03-17] MEDS: ATORVASTATIN 40 MG TABLET 80 MG PO (07:59)
[2023-03-17] MEDS: oxyBUTYnin CHLORIDE XL 5 MG TAB.ER.24 10 MG PO (07:59)
[2023-03-17 08:00] LABS: Hepatitis B Surface Anti Res Negative
[2023-03-17] MEDS: IPRATROPIUM BR 0.02% INH SOLN 0.5 MG/2.5 ML VIAL INHALATION ×3 (08:41→20:25)
[2023-03-17] MEDS: FLUTICASONE/SALMETEROL 230-21 MCG INHALER 1 PUFF 2 PUFF INHALATION ×2 (08:42→20:28)
--- NOTE | 2023-03-17 10:35 | PM.CNNEP ---
Assessment and Plan Assessment and plan (1) End stage renal disease: Code(s): N18.6 - End stage renal disease Status: Chronic Assessment and Plan: HD today continue M/W/F dialysis schedule follow electrolytes, volume status, and clearance (2) Syncope: Qualifiers: Syncope type: unspecified Qualified Code(s): R55 - Syncope and collapse Code(s): R55 - Syncope and collapse Status: Acute Assessment and Plan: unclear if true syncope or not possible seizure versus autonomic dysfunction(?) medication related (or lack of medication compliance?) continue supportive therapy (3) Acute exacerbation of chronic obstructive pulmonary disease: Code(s): J44.1 - Chronic obstructive pulmonary disease with (acute) exacerbation Status: Acute Assessment and Plan: as noted by history and exam nebulizer treatments as scheduled consider steroids if no improvemetn continues to smoke and not interested in cessation follow respiratory status (4) Anemia: Code(s): D64.9 - Anemia, unspecified Status: Chronic Assessment and Plan: related to ESRD Epogen with HD follow trend of H/H (5) Hypertension: Code(s): I10 - Essential (primary) hypertension Status: Chronic Assessment and Plan: elevated on presentation better s/p medical management poor control at baseline due to compliance issues with BP medications follow trend of hemodynamics I will continue to follow patient with you while remains hospitalized and make further recommendations during his hospital course. Thank you for allowing me to participate in care this patient. History of Present Illness Reason for Consult Consult date: 03/17/23 Reason for consult: end stage renal disease Chief Complaint Chief complaint: ESRD on Dialysis,Uncontrolled Hypertension,COPD Ex History of Present Illness Narrative: Most of the information I have obtained is review of the electronic medical record as well as discussion with the physician/nurses involved in his care as is difficult to get a full and complete history from the patient due to his lack of cooperation. The patient is a 67-year-old male with a past medical history as outlined below who presented to [facility] Emergency Room with a possible syncopal episode. Apparently, the patient's son provided a history that he went to check on the patient on the day of admission, he found him on his hands his knees on the ground. When he assisted his father back up the patient seemed to slump over for a few seconds and seemed to be have a blank stare. However, after a few seconds, he seem to ?perk up? and asked for cigarette was able to get up and walk around. Given this event, the patient's son called EMS for further assessment and transport to the ER. Workup and evaluation emergency room demonstrated the patient be hemodynamically stable (if not hypertensive with a systolic in the 180s). It is unclear the patient was taking his medications appropriately particularly since he does have both high blood pressure as well as a history of his seizure disorder. He reported some shortness of breath but this is some of a chronic issue given his underlying lung disease but denied any fevers, chills, nausea, vomiting, diarrhea, or chest pain. Given the unclear nature of what occurred, the patient was admitted to the hospital for further evaluation and therapy. It should be noted the patient's compliance with medications, specifically his antihypertensives and anti seizure medications is quite questionable as noted by his recent hospitalization earlier this month. Renal consultation was requested due to his end-stage renal disease. The patient normally dialyzes on a Friday, Friday, schedule under the care of Dr. Reji Forte at [facility]. The patient is somewhat familiar to me as I taken care of him
[2023-03-17] MEDS: EPOETIN ALFA-EPBX 4,000 UNITS/ML VIAL 4000 UNITS IV PUSH (12:35)
--- NOTE | 2023-03-17 13:53 | PC.NURSE ---
Patient back from dialysis.
[2023-03-17] MEDS: carvediloL 12.5 MG TABLET PO ×2 (13:54→21:17)
[2023-03-17] MEDS: ASPIRIN 81 MG ENTERIC TABLET PO (13:54)
[2023-03-17] MEDS: NIFEdipine 30 MG TAB.ER.24 90 MG PO (13:54)
[2023-03-17] MEDS: CLOPIDOGREL BISULFATE 75 MG TABLET PO (13:54)
[2023-03-17] MEDS: lisinopriL 20 MG TABLET 40 MG PO (13:54)
[2023-03-17] MEDS: UMECLIDINIUM BROMIDE 62.5 MCG ELLIPTA 1 PUFF INHALATION (14:51)
[2023-03-17] MEDS: FAMOTIDINE 20 MG TABLET PO (21:17)
[2023-03-18] VITALS (14 sets, daily range): BP systolic 115–166; BP diastolic 52–86; PULSE 60–88; RESP 16–20; TEMP 36–36.3; O2SAT 93–98
[2023-03-18] MEDS: ACETAMINOPHEN 325 MG TABLET 650 MG PO (06:48)
[2023-03-18] MEDS: carvediloL 12.5 MG TABLET PO (08:38)
[2023-03-18] MEDS: NIFEdipine 30 MG TAB.ER.24 90 MG PO (08:38)
[2023-03-18] MEDS: DIVALPROEX SODIUM ER 250 MG TAB.24H 750 MG PO (08:38)
[2023-03-18] MEDS: predniSONE 20 MG TABLET 40 MG PO (08:38)
[2023-03-18] MEDS: lisinopriL 20 MG TABLET 40 MG PO (08:38)
[2023-03-18] MEDS: CLOPIDOGREL BISULFATE 75 MG TABLET PO (08:38)
[2023-03-18] MEDS: oxyBUTYnin CHLORIDE XL 5 MG TAB.ER.24 10 MG PO (08:38)
[2023-03-18] MEDS: ISOSORBIDE MONONITRATE 60 MG TAB.ER.24H PO (08:38)
[2023-03-18] MEDS: ASPIRIN 81 MG ENTERIC TABLET PO (08:38)
[2023-03-18] MEDS: levETIRAcetam 250 MG TABLET PO (08:39)
[2023-03-18] MEDS: ATORVASTATIN 40 MG TABLET 80 MG PO (08:39)
[2023-03-18] MEDS: hydrALAZINE HCL 25 MG TABLET PO ×2 (08:44→12:02)
[2023-03-18] MEDS: FLUTICASONE/SALMETEROL 230-21 MCG INHALER 1 PUFF 2 PUFF INHALATION (09:01)
[2023-03-18] MEDS: IPRATROPIUM BR 0.02% INH SOLN 0.5 MG/2.5 ML VIAL INHALATION ×2 (09:01→13:43)
[2023-03-18] MEDS: ALBUTEROL SULFATE NEB 2.5 MG/3 ML INH INHALATION ×2 (09:01→13:43)
[2023-03-18] MEDS: UMECLIDINIUM BROMIDE 62.5 MCG ELLIPTA 1 PUFF INHALATION (09:01)
--- NOTE | 2023-03-18 09:26 | PM.DS ---
DS: Admitting Diagnosis Discharge Date 03/18/2023 Admitting Diagnosis COPD exacerbation ESRD Syncope DS: Discharge Diagnosis Discharge Diagnosis (1) Acute exacerbation of chronic obstructive pulmonary disease: Code(s): J44.1 - Chronic obstructive pulmonary disease with (acute) exacerbation Status: Acute (2) Syncope: Qualifiers: Syncope type: unspecified Qualified Code(s): R55 - Syncope and collapse Code(s): R55 - Syncope and collapse Status: Acute (3) End stage renal disease: Code(s): N18.6 - End stage renal disease Status: Chronic DS: Summary Hospital Course Hospital Course: 67-year-old male with a past medical history end-stage renal disease on hemodialysis essential hypertension, stroke and COPD presented to the ER from home due to possible syncopal episode.? ER provider obtain some of the information from the patient's son who stated that the patient had been in the bathroom taking a shower.? He went to check on the patient and found the patient on his hands and knees.? he seemed to slump to the side for a few seconds and had his eye staring off.? However after a few seconds the patient then asked for cigarette and was able to get up and walk around.? The patient arrived to the ER with markedly elevated blood pressures.? The patient is unclear as to whether not he has been taking his medications as directed.? Patient was found to have mild COPD exacerbation and he was given IV steroids and was started on oral prednisone. Also given oral Levaquin. His syncopal episode was possibly not a syncopal episode but may be a small seizure. His serum valproic acid level was low which could have been the cause of his episode. Patient was counseled on medication compliance. His blood pressure was elevated so he was started on IV hydralazine which was then changed to hydralazine p.o.. Patient is being discharged home with home health for medications and possible PT and OT. Time Spent with Patient Time attestation: Total time spent providing and/or coordinating discharge services: DS: Data Data Completed and Pending Labs on day of discharge: Preliminary micro results at discharge 03/16/23 17:27 Blood Culture - Preliminary Blood 03/16/23 19:17 Blood Culture - Preliminary Blood Discharge Plan Discharge Consulting providers: Len Larry Discharging Clinician: Heath Hernandez Anticipated Discharge Date/Time: 03/18/23 09:24 Patient Disposition: Home Health Service Activity: no preference Diet: heart healthy and renal Patient Instructions: Antibiotic Form, How to Stop Smoking (DC) Stand Alone Forms: General Discharge Information Follow-up/Referrals: Len Larry MD [Physician] - [place],Azael Morgan APRN [Primary Care Provider] - Discharge Medications: New prednisone 20 mg Tablet 40 mg PO DAILY@08 Qty: 2 0RF hydralazine 25 mg Tablet 25 mg PO QID Qty: 60 0RF Continued fluticasone propion-salmeterol [Advair Diskus] 500-50 mcg/dose blister with device 1 inh INHALATION BID carvedilol [Coreg] 12.5 mg Tablet 12.5 mg PO Q12HR 30 Days Qty: 60 0RF atorvastatin 40 mg Tablet 80 mg PO DAILY 30 Days Qty: 60 0RF aspirin 81 mg capsule 81 mg PO DAILY 30 Days Qty: 30 0RF clopidogrel [Plavix] 75 mg tablet 75 mg PO DAILY 30 Days Qty: 30 0RF isosorbide mononitrate 60 mg Tablet Extended Release 24 Hr 60 mg PO DAILY 30 Days Qty: 30 0RF divalproex [Depakote ER] 250 mg Tablet Extended Release 24 Hr 750 mg PO Q12HR 30 Days Qty: 180 0RF nifedipine 90 mg Tablet Extended Release 90 mg PO DAILY famotidine 20 mg Tablet 20 mg PO HS oxybutynin chloride 10 mg Tablet Extended Release 24hr 10 mg PO DAILY Incruse Ellipta 62.5 mcg/actuation Blister With Device 1 inh INHALATION DAILY lisinopril 20 mg Tablet 40 mg PO QAM Qty: 30 2RF levetiracetam 250 mg Tablet 250 mg P
--- NOTE | 2023-03-18 11:31 | PC.NURSE ---
Patient refusing chair alarm at this time and this nurse visualized him turning off the chair alarm on the wall when chair alarm was going off. Pt. educated on high fall risk status.
--- NOTE | 2023-03-18 13:09 | HOMEO2EVAL ---
Evaluation was performed at [facility] Home Oxygen Evaluation RC: Home Oxygen (O2) Evaluation Start: 03/18/23 08:41 Freq: ONCE Status: Active Protocol: RPE Activity Type Activity Date Activity User E-sign Co-sign Detail Recorded Client Recorded Date Recorded By Document 03/18/23 11:45 LUIS CARLOS [id number] 03/18/23 13:08 LUIS CARLOS Document 03/18/23 11:50 LUIS CARLOS [id number] 03/18/23 13:08 LUIS CARLOS Document 03/18/23 12:00 LUIS CARLOS [id number] 03/18/23 13:08 LUIS CARLOS 03/18/23 03/18/23 03/18/23 11:45 11:50 12:00 Home O2 Evaluation [Oxygen] -Test Phase Resting Exercise Resting -Oxygen Delivery Room Air Room Air Room Air [Pulse Oximetry] -Pulse Oximetry (90-100 %) 96 94 95 [Pulse Rate] -Pulse Rate (60-100 beats/min) 67 88 72 [Comments] -Home Oxygen Evaluation Comments NO HOME O2 NEEDED AT THIS TIME. [Charges] -Treatment Charges O2 Evaluation - Inpatient
--- NOTE | 2023-03-18 13:09 | PCRCNOTE ---
HOME O2 EVAL DONE, NO HOME O2 NEEDED AT THIS TIME. RN NOTIFIED
== END 2023-03-18 15:50 | disposition home health service (06) ==
LOC: ANHED 16:09 → ANH3MEDSUR 20:57
PROVIDERS: Internal Medicine Nephrology; Preventive Medicine Aerospace Medicine; Admitting Provider Internal Medicine; Emergency Provider General Practice; PCP Nurse Practitioner; Visit Provider Hospitalist
DX: J44.1 Chronic obstructive pulmonary disease with (acute) exacerbation (principal); R55 Syncope and collapse; S09.90XA Unspecified injury of head, initial encounter; I12.0 Hypertensive chronic kidney disease with stage 5 chronic kidney disease or end stage renal disease; N18.6 End stage renal disease; Z99.2 Dependence on renal dialysis; D63.1 Anemia in chronic kidney disease; D35.02 Benign neoplasm of left adrenal gland; Z20.822 Contact with and (suspected) exposure to COVID-19; I25.10 Atherosclerotic heart disease of native coronary artery without angina pectoris; Z95.5 Presence of coronary angioplasty implant and graft; K21.9 Gastro-esophageal reflux disease without esophagitis; G47.33 Obstructive sleep apnea (adult) (pediatric); R94.31 Abnormal electrocardiogram [ECG] [EKG]; I73.9 Peripheral vascular disease, unspecified; E78.5 Hyperlipidemia, unspecified; N25.0 Renal osteodystrophy; D72.829 Elevated white blood cell count, unspecified; Z95.0 Presence of cardiac pacemaker; F17.210 Nicotine dependence, cigarettes, uncomplicated; Z86.16 Personal history of COVID-19; Z79.51 Long term (current) use of inhaled steroids; Z79.899 Other long term (current) drug therapy; Z86.73 Personal history of transient ischemic attack (TIA), and cerebral infarction without residual deficits; Z82.49 Family history of ischemic heart disease and other diseases of the circulatory system
CPT/HCPCS: 36415; 36600; 70450; 71045; 74176; 80053; 80164; 81001; 82375; 82805; 83050; 83605; 85025; 86706; 87040; 87340; 87636; 93005; 94618; 94640; 96374; 96375; 97116; 97161; 97165; 97530; 99285; A9270; G0257; G0378; G0379; J0360; J1644; J2930; J7030; J7512; Q5105

== ENCOUNTER 2023-03-29 20:32 | Observation (INO) | payer OTHER, SELFPAY ==
[2023-03-29] VITALS (29 sets, daily range): BP systolic 204–261; BP diastolic 103–136; PULSE 71–94; RESP 13–37; TEMP 36.8; O2SAT 98–100
--- NOTE | ~2023-03-29 | CT_ITS ---
EXAMINATION: CT abdomen pelvis wo con DATE: 03/29/2023 21:06 INDICATION: urinary frequency, ESRD, right inguinal pain TECHNIQUE: Computed tomography (CT) of the abdomen and pelvis was performed without intravenous contr ast. Automated exposure control and iterative reconstruction technique were employed. The dose-length product was 180.58 mGy-cm. COMPARISON: 03/16/2023. FINDINGS: Considerable motion artifact in the mid and lower abdomen. Lower thorax: Partially visualized pacing wires. Calcifications project over the left heart. Liver: Normal. Biliary/Gallbladder: Gallbladder is normal. No bile duct dilation. Pancreas: No mass or duct dilation. Spleen: Granulomatous calcifications Adrenals:Left adrenal adenoma. Kidneys: Bilateral renal atrophy GI tract: No small or large bowel dilation, noting that evaluation of the bowel is limited by motion artifact. Appendix not visualized. Mesentery/Peritoneum: No ascites, mass, or free air. Retroperitoneum: No mass. Atherosclerotic abdominal aortic and/or arterial calcifications. Right saul l artery stent. Left common/external iliac stent Pelvis: Partially distended urinary bladder with wall thickening. Mild prostatomegaly with calcificat ion. Soft Tissues: Soft tissues and body wall unremarkable. Bones: No acute osseous finding. IMPRESSION: Motion limited examination. Cystitis versus bladder wall thickening from outlet compromise and/or partial distention. Otherwise, no definite acute abdominopelvic process detected. Reviewed, dictated and finalized at location K. IMPRESSION: Motion limited examination. Cystitis versus bladder wall thickening from outlet compromise and/or partial d istention. Otherwise, no definite acute abdominopelvic process detected.
--- NOTE | ~2023-03-29 | XR_ITS ---
Portable chest x-ray Comparison: 03/16/2023 Clinical History: Shortness of breath Findings: Right-sided central venous line is unchanged. Questionable minimal interstitial edema or c hronic interstitial disease. Cardiomediastinal silhouette is stable, with pacemaker device. Bones an d soft tissues are unremarkable. Impression: Questionable mild interstitial edema versus COPD or other chronic interstitial disease. Pacemaker device and support line, unchanged. Reviewed, dictated and finalized at location . Impression: Questionable mild interstitial edema versus COPD or other chronic interstitial disease. Pacemaker device and support line, unchanged.
--- NOTE | ~2023-03-29 | XR_ITS ---
AP view of the pelvis and AP and lateral views of the right hip Clinical history: Pain Findings: No acute fracture or dislocation is seen. Osseous alignment is anatomic. Bilateral hip and SI joint spaces are preserved.] Leg vessel stent noted. Soft tissues are unremarkable. Impression: No significant abnormality is seen. Reviewed, dictated and finalized at [facility]. Impression: No significant abnormality is seen.
--- NOTE | 2023-03-29 20:36 | ECG_ITS ---
Measurements Intervals [place] Rate: 82 P: 11 [place]: 105 QRS: 3 QRSD: 86 T: 116 QT: 372 QTc: 435 Interpretive Statements SINUS RHYTHM WITH SHORT [place] INTERVAL LEFT VENTRICULAR HYPERTROPHY AND ST-T CHANGE BORDERLINE ST-T WAVE ABNORMALITY- ANTERIOR LEADS BASELINE WANDER- II, III, AVF BORDERLINE ECG COMPARED TO ECG 03/16/2023 12:27:36 LEFT VENTRICULAR HYPERTROPHY NOW PRESENT Electronically Signed On 03-30-2023 7:28:19 CDT by Varun Ashraf D.O.
--- NOTE | 2023-03-29 20:42 | PC.NURSE ---
Patient states he goes to dialysis on friday, friday and friday and has been compliant with that.
--- NOTE | 2023-03-29 21:14 | ED.GENADULT ---
HPI - General Adult General Chief complaint: Urogenital-Male Stated complaint: FREQUENT URINATION Time Seen by Provider: 03/29/23 20:40 History of Present Illness HPI narrative: Patient 67-year-old gentleman who presents the emergency department with chief complaint of urinary frequency. The patient reports that he has history of dialysis but still makes urine patient reports he has been noncompliant with his blood pressure medicines and reports that he has pain in the right inguinal/hip area. Patient reports no trauma reports that he does not like to take his blood pressure medicines at home. Patient reports that he goes to dialysis Friday Related Data Home Medications Medication Instructions Recorded Confirmed famotidine 20 mg tablet 20 mg PO HS 03/19/22 03/16/23 nifedipine 90 mg tablet,extended 90 mg PO DAILY 03/19/22 03/16/23 release oxybutynin chloride 10 mg 10 mg PO DAILY 03/19/22 03/16/23 tablet,extended release 24 hr umeclidinium 62.5 mcg/actuation 1 inh inhalation DAILY 03/24/22 03/16/23 blister powder for inhalation (Incruse Ellipta) fluticasone 500 mcg-salmeterol 50 1 inh inhalation BID 04/24/22 03/16/23 mcg/dose blistr powdr for inhalation (Advair Diskus) Allergies Allergy/AdvReac Type Severity Reaction Status Date / Time No Known Allergies Allergy Verified 03/16/23 17:29 Review of Systems Review of Systems: A 10 system review of systems was completed on the patient and is negative except for what is stated in the HPI. Nursing and ancillary documentation was reviewed. [facility] Past Medical History Medical History Cerebrovascular accident Chronic obstructive pulmonary disease Coronary artery disease COVID-19 (02/2022) Elevated troponin End-stage renal disease on hemodialysis Friday Erythropoietin deficiency anemia Facial edema GERD with esophagitis Hyperlipidemia Hypertension Obstructive sleep apnea Pacemaker Peripheral vascular disease Renal osteodystrophy Seizure-like activity Normal EEG in April 2022 though patient is on levetiracetam. Shortness of breath Tobacco abuse Vertebral artery stenosis Surgical History Surgical History History of percutaneous coronary intervention Iliac stent. Cardiac stents. History of permanent cardiac pacemaker placement S/P hemodialysis catheter insertion Family History Family History Father Cancer of lung Mother Heart failure Social History Social History Social History: He lives with his son. The patient continues to smoke a pack a cigarettes a day. He is listed as single and unemployed. Healthcare power of workers compensation defense attorney: Von Donahue, son. Code status: Full code. Smoking packs per day: 1 Smoking cigarettes per day: 20.0 Years smoked: 50 Smoking pack-years: 50.00 Smoking status: Current every day smoker Tobacco type: cigarettes Second hand tobacco smoke exposure: No Alcohol intake: never Substance use: never Substance use type: does not use Lack of Transportation: No Lack of Food: Never True Current Housing: I Have Housing Concerned About Future Housing: No Difficulty Paying Gas/Electric Bills: No Difficulty Paying for Meds: No Currently Unemployed: No Education: Grade School Difficulty w/ Childcare or Family Care: No Additional living arrangements comments: The patient lives in [place]. His son Von lives at home with him. Spiritual care concerns: No Exam Narrative: GENERAL: Well-appearing, well-nourished, and in no acute distress. HEAD: Normocephalic, atraumatic. EYES: PERRLA and EOMI. ENT: Nares clear, no rhinorrhea or epistaxis. Mucous membranes moist. NECK: Supple.
[2023-03-29 21:56] LABS: Basophils Absolute Auto 0.1 K/mm3 (0.0-0.1); Basophils Percent Auto 0.7 % (0.2-1.2); Eosinophils Absolute Auto 0.4 K/mm3 (0-0.3); Eosinophils Percent Auto 3.1 % (0-4.4); Hematocrit 31.4 % (42.0-52.0); Hemoglobin 10.4 g/dL (14.0-18.0); Immature Granulocyte Absolute 0.04 K/mm3 (0.00-0.031); Immature Granulocyte Percent A 0.3 % (0-0.5); Lymphocytes Absolute Auto 2.13 K/mm3 (0.9-3.2); Lymphocytes Percent Auto 17.4 % (18.3-44.2); Mean Corpuscular HGB Conc 33.1 g/dl (32-36); Mean Corpuscular Hemoglobin 33.1 pg (26-34); Mean Platelet Volume 10.2 fl (7.4-10.4); Monocytes Percent Auto 7.8 % (2.6-8.5); Neutrophils Absolute Auto 8.7 K/mm3 (1.3-6.7); Neutrophils Percent Auto 70.7 % (45.5-73.1); Platelet Count Result 203 k/mm3 (150-375); Red Blood Count 3.14 M/mm3 (4.6-6.20); Red Cell Distribution Width 12.7 % (11.5-14.5); White Blood Count 12.2 K/mm3 (4.5-10.0)
[2023-03-29 22:05] LABS: Appearance Urine Clear (Clear); Bilirubin Urine Negative (Negative); Blood Urine 1+ (Negative); Color Urine Yellow (Yellow); Glucose Urine UA Trace mg/dL (Negative); Ketones Urine Negative (Negative); Leukocyte Esterase Ur Negative LEU/UL (Negative); Nitrate Urine Negative (Negative); Protein Urine 2+ mg/dL (Negative); Specific Grav Ur 1.015 (1.001-1.035); Urobilinogen Urine 0.2 mg/dL (<2.0); pH Urine 8.5 (5.0-9.0)
[2023-03-29 22:07] LABS: Prothrombin Time 13.9 Seconds (11.1-14.7)
[2023-03-29 22:08] LABS: Alanine Aminotransferase 17 U/L (6-50); Albumin Level 4.1 g/dL (3.5-5.1); Alkaline Phosphatase 73 U/L (38-126); Anion Gap 5 mmol/L (8-16); Aspartate Amino Transferase 24 U/L (17-59); Bilirubin,Total 0.4 mg/dL (0.2-1.3); Blood Urea Nitrogen 48 mg/dL (9-20); Calcium 8.8 mg/dL (8.4-10.2); Carbon Dioxide 31 mmol/L (22-30); Chloride 96 mmol/L (98-107); Estimated CRCL calculation 8 ml/min; Estimated Glomerular Filt Rate 9; Glucose 86 mg/dL (65-110); Lactic Acid Reflex 0.9 mmol/L (0.7-2.0); Magnesium 2.2 mg/dL (1.6-2.3); Partial Thromboplastin Time 27.7 SECONDS (22.3-36.8); Potassium 4.1 mmol/L (3.4-5.0); Sodium 132 mmol/L (137-145)
[2023-03-29 22:22] LABS: Add Urine Microscopic? YES; WBC Urine 0-3 /hpf
[2023-03-29 22:40] LABS: Procalcitonin 0.4 ng/mL
[2023-03-29] MEDS: hydrALAZINE HCL 20 MG/ML VIAL 10 MG IV PUSH (23:11)
[2023-03-30] VITALS (43 sets, daily range): BP systolic 110–250; BP diastolic 67–152; PULSE 68–110; RESP 16–38; TEMP 36.3–36.9; O2SAT 95–100; BMI 18.8
--- NOTE | 2023-03-30 00:07 | PC.NURSE ---
Patients bed was changed, was soaked in urine. Ambulation assessment done upon request of provider, patient was at baseline. Patient states he normally grab furniture to help me walk. Patient did that with the assessment, was at his baseline, ERP notified.
[2023-03-30 00:17] LABS: Troponin I 0.079 ng/mL (0.000-0.034)
[2023-03-30] MEDS: NIFEdipine 30 MG TAB.ER.24 90 MG PO (02:01)
[2023-03-30] MEDS: carvediloL 25 MG TABLET PO (02:01)
[2023-03-30] MEDS: hydrALAZINE HCL 50 MG TABLET PO (02:01)
--- NOTE | 2023-03-30 03:12 | PM.IMHP ---
H&P: HPI History of Present Illness Date/Time: 03/30/23 03:12 Chief Complaint: peeing constantly Narrative: 67-year-old male with past medical history of end-stage renal disease on hemodialysis, essential hypertension, CVA and COPD who presented to the ER he due to complain of frequent urination. Despite being on hemodialysis patient does still produce urine. The patient had saturated his bed in the ER and despite and emptying his bladder still had greater than 200 mL retained in his bladder. Dela Cruz catheter was placed. The patient is unstable on his feet on at baseline and usually walks from his house bite grabbing onto furniture. The patient had just been hospitalized recently due to possible syncope versus seizure. The patient was evaluated by Physical therapy and discharged back home. The patient was referred to home health but the patient has fired home health stating that the home health personnel were cursing at him. The the patient and arrived to the ER with systolic blood pressures 261/136. He received 1 dose of IV hydralazine. The patient's repeat blood pressure came down to 200 systolic. ER providers should called me regarding patient's admission. I requested the patient receive his home medications that he reported he had not been taking including Coreg 12.5 mg, hydralazine 50 mg which unfortunately was later from hypertrophy 25 mg and Procardia. An hour and half later the patient's blood pressure or recorded as 112/72. The patient reports that he always leak see urine but was leaking urine more so. He was leaking larger volumes of urine. He denies dysuria or hematuria. It sounds as if the patient may be having some urinary incontinence due to functional incontinence and not being able to get to the bathroom in time. The patient has a chronic cough. He states his cough is not worse than usual but then was asking nursing staff for breathe more breathing treatments. He does have breathing treatments at home a states that they help his breathing for a few minutes. His cough is productive of white sputum per nursing report but the patient seems to have difficulty giving me descriptions of his symptoms. The patient is not the best historian. He states he did go to his hemodialysis as directed Friday. His rn corrections is Dr. Forte. He receives hemodialysis through a tunneled dialysis catheter. He reports that he is having abdominal pain. On palpation patient's abdominal pain seems to be more in the epigastric region. He states that does seem worse when he coughs or takes a deep breath. He is mildly tachypneic but no accessory muscle use. He denies any fevers but does occasionally have chills but this isn't changed from baseline. He denies any swelling. When I have seen the patient in the past he has had some periorbital edema which he does not have currently. He denies any palpitations. He has been having bowel movements without hematochezia or melena. The patient is any fair to poor historian despite being alert oriented times 3. The patient initially upon questioning could not remember what his chief complaint was when he arrived to the ER. Review of Systems Review of Systems: 12 systems were reviewed with pertinent positives and negatives per HPI. Except as documented in the HPI, all other systems were reviewed and are negative. [facility] Past Medical History Medical History (Updated 03/30/23 @ 03:26 by Jyothi Alston, DO) Cerebrovascular accident Chronic obstructive pulmonary disease Coronary artery disease COVID-19 (02/2022) End-stage renal disease on hemodialysis Friday Erythropoietin deficiency anemia Facial edema GERD with esophagitis Hyperlipidemia Hypertension Obstructive sleep apnea Pacemaker Peripheral vascular disease Renal osteodystrophy Seizure-like activity Normal EEG in April 2022 though patient is on levetiracetam. Tobacco abuse Vertebral artery stenosis
--- NOTE | 2023-03-30 03:21 | ADMGEN ---
This patient, Sachin Donahue, was admitted to Medical Room 255-. Patient/family oriented to hospital policies and general routines including ID bracelet, bed and alarms, visiting hours, pain management, procedures, bathroom and other care routines, personal items, smoking policy, room service/diet, and visiting hours. Information on how to activate the Rapid Response Team has been discussed. Patient/Family are encouraged to report perceived risks to care and to ask questions if they do not understand what they are told or what they should do.
[2023-03-30] MEDS: ACETAMINOPHEN 325 MG TABLET 650 MG PO ×3 (05:36→20:06)
[2023-03-30] MEDS: ALBUTEROL SULFATE NEB 2.5 MG/3 ML INH 5 MG INHALATION ×4 (05:42→21:28)
[2023-03-30] MEDS: IPRATROPIUM BR 0.02% INH SOLN 0.5 MG/2.5 ML VIAL INHALATION ×4 (05:44→21:28)
[2023-03-30 08:07] LABS: Basophils Absolute Auto 0.1 K/mm3 (0.0-0.1); Basophils Percent Auto 0.8 % (0.2-1.2); Eosinophils Absolute Auto 0.4 K/mm3 (0-0.3); Eosinophils Percent Auto 3.2 % (0-4.4); Hematocrit 32.2 % (42.0-52.0); Hemoglobin 10.3 g/dL (14.0-18.0); Immature Granulocyte Absolute 0.03 K/mm3 (0.00-0.031); Immature Granulocyte Percent A 0.3 % (0-0.5); Immature Platelet Fraction Pct 6.1 % (0.9-11.2); Lymphocytes Absolute Auto 1.36 K/mm3 (0.9-3.2); Lymphocytes Percent Auto 11.6 % (18.3-44.2); Mean Corpuscular Hemoglobin 33.6 pg (26-34); Mean Corpuscular Volume 104.9 fl (80-100); Mean Platelet Volume 11.3 fl (7.4-10.4); Monocytes Absolute Auto 0.7 K/mm3 (0.1-0.6); Neutrophils Absolute Auto 9.2 K/mm3 (1.3-6.7); Neutrophils Percent Auto 78.1 % (45.5-73.1); Platelet Count Result 196 k/mm3 (150-375); Red Blood Count 3.07 M/mm3 (4.6-6.20); Red Cell Distribution Width 12.9 % (11.5-14.5); White Blood Count 11.8 K/mm3 (4.5-10.0)
[2023-03-30 08:10] LABS: Albumin Level 3.8 g/dL (3.5-5.1); Anion Gap 8 mmol/L (8-16); Blood Urea Nitrogen 51 mg/dL (9-20); Calcium 8.6 mg/dL (8.4-10.2); Carbon Dioxide 25 mmol/L (22-30); Chloride 98 mmol/L (98-107); Estimated CRCL calculation 8 ml/min; Estimated Glomerular Filt Rate 9; Glucose 131 mg/dL (65-110); Phosphorus 3.9 mg/dL (2.5-4.5); Potassium 4.5 mmol/L (3.4-5.0); Sodium 131 mmol/L (137-145)
[2023-03-30] MEDS: FLUTICASONE/SALMETEROL 230-21 MCG INHALER 1 PUFF 2 PUFF INHALATION ×2 (08:27→21:29)
[2023-03-30 08:29] LABS: Troponin I 0.063 ng/mL (0.000-0.034)
--- NOTE | 2023-03-30 09:01 | PCPTNOTE ---
Attempted to see patient, but breakfast arrived. Will check on patient later this AM.
[2023-03-30] MEDS: UMECLIDINIUM BROMIDE 62.5 MCG ELLIPTA 1 PUFF INHALATION (09:15)
[2023-03-30] MEDS: ASPIRIN 81 MG ENTERIC TABLET PO (09:21)
[2023-03-30] MEDS: predniSONE 40 MG, predniSONE 10 MG 50 MG PO (09:23)
[2023-03-30] MEDS: DIVALPROEX SODIUM ER 250 MG TAB.24H 750 MG PO ×2 (09:23→20:07)
[2023-03-30] MEDS: levETIRAcetam 250 MG TABLET PO ×2 (09:24→20:06)
[2023-03-30] MEDS: SODIUM BICARBONATE TAB 650 MG TABLET PO ×3 (09:24→16:39)
[2023-03-30] MEDS: TAMSULOSIN HCL 0.4 MG CAPSULE PO (09:24)
[2023-03-30] MEDS: ATORVASTATIN 40 MG TABLET 80 MG PO (09:24)
[2023-03-30] MEDS: ISOSORBIDE MONONITRATE 60 MG TAB.ER.24H PO (09:25)
[2023-03-30] MEDS: HEPARIN SODIUM 5,000 UNITS/ML VIAL 5000 UNITS SUB-Q ×2 (09:26→20:06)
[2023-03-30] MEDS: CLOPIDOGREL BISULFATE 75 MG TABLET PO (09:26)
--- NOTE | 2023-03-30 14:33 | PM.IMPN ---
Progress Note: A&P Assessment and Plan (1) Acute urinary retention: Code(s): R33.8 - Other retention of urine Status: Acute Assessment and Plan: Patient arrived to the ER with symptoms of urinary urgency and incontinence. He has a history of urge urinary incontinence and is on oxybutynin at home. The patient had a large incontinent void in the ER and saw 200 mL of retained urine in his bladder. A Dela Cruz catheter was placed in the ER. Oxybutynin on hold and he was started on Flomax. Plan Dela Cruz trial in 1-2 days. (2) Hypertension: Qualifiers: Hypertension type: unspecified secondary hypertension Qualified Code(s): I15.9 - Secondary hypertension, unspecified Code(s): I10 - Essential (primary) hypertension Status: Acute Assessment and Plan: On arrival to the ER the patient's blood pressures were markedly elevated. The patient states that he has not been taking his medications as directed because it makes him feel funny. On review of the prior med rec, he was discharged on hydralazine 25 mg q.i.d., Coreg 12.5 mg, Imdur and Procardia. He received hydralazine IV then po, Coreg, Clonidine and Procardia in ED. His blood pressures have completely normalized. Imdur continued but other medications on hold. His BP remains stable. Resume home regiment as blood pressure requires. (3) Non compliance w medication regimen: Code(s): Z91.148 - Patient's other noncompliance with medication regimen for other reason Status: Acute Assessment and Plan: Patient is noncompliant with his regiment. Unclear if he is feeling odd with his meds if he is taking them inapprorpiately as well. Placement being considered. (4) ESRD (end stage renal disease) on dialysis: Code(s): N18.6 - End stage renal disease; Z99.2 - Dependence on renal dialysis Status: Acute Assessment and Plan: Patient does have end-stage renal disease on hemodialysis. He will need HD per his scheduled -. Contineu NaBicarb. (5) Elevated troponin: Code(s): R77.8 - Other specified abnormalities of plasma proteins Status: Acute Assessment and Plan: Troponins are mildly elevated but flat. On chart review, patient's troponins are always elevated. This is probably related to his end-stage renal disease. EKG shows sinus rhythm with short FL interval with LVH and borderline ST-T wave changes in the anterior leads. EKG very similar to prior EKGs. Continue to follow (6) Ambulatory dysfunction: Code(s): R26.2 - Difficulty in walking, not elsewhere classified Status: Acute Assessment and Plan: patient with diffuse weakness. PT and OT has been ordered. (7) COPD exacerbation: Code(s): J44.1 - Chronic obstructive pulmonary disease with (acute) exacerbation Status: Acute Assessment and Plan: Patient had active wheezing and significant amount of sputum production on admission.? He was started on scheduled nebulizer treatments and oral prednisone.? Will continue patient's home controller inhalers. Add Augmentin (8) Tobacco abuse: Code(s): Z72.0 - Tobacco use Status: Acute Assessment and Plan: Patient was educated about the benefits of smoking cessation. Subjective Date/time seen: 03/30/23 14:33 Interval history: 67yo male with ESRD, COPD, CAD, HTN, NIGHAT and seizures here for frequent urination. Patient describes hvaing chest pain this morning 5/10 that is pleuritic but not palpable and associated with SOB. He has had this pain off and on for 6 months and he feels related to his smoking. He smokes 1ppd. Exam Narrative: AF 97.9 110/77 73 18 97% ra Gen - NARD Chest - distant, clear BS. nml RR. HD tunnelled catheter in the right upper chest. CV - RRR S1/S2 Abd - Soft, NT/ND, Positive BS - Dela Cruz secured with clear yellow urine in bag Ext - No pedal edema Neuro - Alert and oriented x3 (not year).
[2023-03-30] MEDS: AMOXICILLIN/CLAVULANATE K 500-125 MG TAB 1 TABLET PO (20:06)
[2023-03-30] MEDS: FAMOTIDINE 20 MG TABLET PO (20:06)
[2023-03-31] VITALS (29 sets, daily range): BP systolic 158–198; BP diastolic 73–122; PULSE 65–90; RESP 14–24; TEMP 35.6–37; O2SAT 96–100; BMI 18.8
[2023-03-31] MEDS: ACETAMINOPHEN 325 MG TABLET 650 MG PO ×2 (00:55→08:38)
[2023-03-31] MEDS: ALBUTEROL SULFATE NEB 2.5 MG/3 ML INH 5 MG INHALATION ×3 (02:52→14:45)
[2023-03-31] MEDS: IPRATROPIUM BR 0.02% INH SOLN 0.5 MG/2.5 ML VIAL INHALATION (02:52)
[2023-03-31 05:22] LABS: Albumin Level 3.9 g/dL (3.5-5.1); Anion Gap 13 mmol/L (8-16); Blood Urea Nitrogen 60 mg/dL (9-20); Calcium 8.4 mg/dL (8.4-10.2); Carbon Dioxide 24 mmol/L (22-30); Chloride 99 mmol/L (98-107); Estimated CRCL calculation 6 ml/min; Estimated Glomerular Filt Rate 7; Glucose 111 mg/dL (65-110); Phosphorus 4.6 mg/dL (2.5-4.5); Sodium 136 mmol/L (137-145)
[2023-03-31 06:15] LABS: Hepatitis B Surface Antigen Negative (Negative)
[2023-03-31 06:27] LABS: Hepatitis B Surface Anti Res Negative
[2023-03-31 06:28] LABS: Folic Acid 4.3 ng/mL (2.76->20)
[2023-03-31] MEDS: predniSONE 40 MG, predniSONE 10 MG 50 MG PO (08:17)
[2023-03-31] MEDS: carvediloL 6.25 MG TABLET PO (08:18)
[2023-03-31] MEDS: DIVALPROEX SODIUM ER 250 MG TAB.24H 750 MG PO ×2 (08:19→19:56)
[2023-03-31] MEDS: TAMSULOSIN HCL 0.4 MG CAPSULE PO (08:19)
[2023-03-31] MEDS: SODIUM BICARBONATE TAB 650 MG TABLET PO ×3 (08:20→19:31)
[2023-03-31] MEDS: levETIRAcetam 250 MG TABLET PO (08:20)
[2023-03-31] MEDS: ATORVASTATIN 40 MG TABLET 80 MG PO (08:20)
[2023-03-31] MEDS: ISOSORBIDE MONONITRATE 60 MG TAB.ER.24H PO (08:20)
[2023-03-31] MEDS: HEPARIN SODIUM 5,000 UNITS/ML VIAL 5000 UNITS SUB-Q ×2 (08:21→19:58)
[2023-03-31] MEDS: ASPIRIN 81 MG ENTERIC TABLET PO (08:21)
[2023-03-31] MEDS: CLOPIDOGREL BISULFATE 75 MG TABLET PO (08:21)
[2023-03-31] MEDS: AMOXICILLIN/CLAVULANATE K 500-125 MG TAB 1 TABLET PO ×2 (08:21→19:56)
[2023-03-31] MEDS: FLUTICASONE/SALMETEROL 230-21 MCG INHALER 1 PUFF 2 PUFF INHALATION (09:05)
[2023-03-31] MEDS: UMECLIDINIUM BROMIDE 62.5 MCG ELLIPTA 1 PUFF INHALATION (09:05)
--- NOTE | 2023-03-31 15:00 | PM.DS ---
DS: Admitting Diagnosis Discharge Date 03/31/23 Admitting Diagnosis Frequent urination DS: Discharge Diagnosis Discharge Diagnosis (1) Acute urinary retention: Code(s): R33.8 - Other retention of urine Status: Acute (2) Hypertension: Qualifiers: Hypertension type: unspecified secondary hypertension Qualified Code(s): I15.9 - Secondary hypertension, unspecified Code(s): I10 - Essential (primary) hypertension Status: Acute (3) Non compliance w medication regimen: Code(s): Z91.148 - Patient's other noncompliance with medication regimen for other reason Status: Acute (4) ESRD (end stage renal disease) on dialysis: Code(s): N18.6 - End stage renal disease; Z99.2 - Dependence on renal dialysis Status: Acute (5) Elevated troponin: Code(s): R77.8 - Other specified abnormalities of plasma proteins Status: Acute (6) Ambulatory dysfunction: Code(s): R26.2 - Difficulty in walking, not elsewhere classified Status: Acute (7) COPD exacerbation: Code(s): J44.1 - Chronic obstructive pulmonary disease with (acute) exacerbation Status: Acute (8) Tobacco abuse: Code(s): Z72.0 - Tobacco use Status: Acute DS: Summary Hospital Course Reason for hospitalization: 67yo male with ESRD, COPD, CAD, HTN, NIGHAT and seizures here for frequent urination. Please see H&P for details. Hospital Course: Patient arrived to the ER with symptoms of urinary urgency and incontinence.? He has a history of urge urinary incontinence and is on oxybutynin at home.? The patient had a large incontinent void in the ER and saw 200 mL of retained urine in his bladder.? A Dela Cruz catheter was placed in the ER.? Oxybutynin was stopped and he was started on Flomax. On arrival to the ER the patient's blood pressures were markedly elevated.? The patient states that he has not been taking his medications as directed because it makes him feel funny.? On review of the prior med rec, he was discharged on hydralazine 25 mg q.i.d., Coreg 12.5 mg, Imdur and Procardia.He received hydralazine IV then po, Coreg, Clonidine and Procardia in ED. His blood pressures completely normalized. Imdur was continued and Coreg added back. Plan to also add back Procardia and hold Clonidine and hydralazine; hopefully he will tolerate this regiment. Patient does have end-stage renal disease on hemodialysis. Nephrology consulted and he underwent dialysis per his routine. Troponin were mildly elevated but flat.? On chart review, patient's troponin are always elevated and probably related to his ESRD.? EKG shows sinus rhythm with short FL interval with LVH and borderline ST-T wave changes in the anterior leads.? EKG very similar to prior EKGs.? Patient had active wheezing and significant amount of sputum production on admission.? He was started on scheduled nebulizer treatments, prednisone and Augmentin. Patient was educated about the benefits of smoking cessation. He was having right upper thigh pain. Right hip and pelvis xray negative for fracture. Per home health RN, patient is noncompliant with medications. He refuses services through the state. he was not agreeable for SNF or snf placement. He overall did well and was able to be discharged home on 03/31/23.Called and left message with son. Status at Discharge Cognitive/behavioral status at discharge: stable Time Spent with Patient Time attestation: Total time spent providing and/or coordinating discharge services: 34 minutes Time spent: Greater than 30 minutes Exam Narrative: AF 97.5 162/94 71 20 96% ra Gen - NARD Chest - distant, clear BS. nml RR. HD tunnelled catheter in the right upper chest. CV - RRR S1/S2 Abd - Soft, NT/ND, Positive BS - Dlea Cruz secured with clear yellow urine in bag Ext - No pedal edema Neuro - Alert and oriented x4 Psych - Nml mood and affect Skin - Warm and dry DS: Data Data Completed
--- NOTE | 2023-03-31 15:25 | PM.CNNEP ---
Assessment and Plan Assessment and plan (1) End stage renal disease: Code(s): N18.6 - End stage renal disease Status: Chronic Assessment and Plan: HD today continue M/W/F dialysis schedule follow electrolytes, volume status, and clearance (2) Acute urinary retention: Code(s): R33.8 - Other retention of urine Status: Acute Assessment and Plan: as noted by evaluation in ER s/p buenrostro cather placement in ER started on flomax (3) Acute exacerbation of chronic obstructive pulmonary disease: Code(s): J44.1 - Chronic obstructive pulmonary disease with (acute) exacerbation Status: Acute Assessment and Plan: as noted by history and exam nebulizer treatments as scheduled consider steroids if no improvemetn continues to smoke and not interested in cessation follow respiratory status (4) Anemia: Code(s): D64.9 - Anemia, unspecified Status: Chronic Assessment and Plan: related to ESRD Epogen with HD follow trend of H/H (5) Hypertension: Code(s): I10 - Essential (primary) hypertension Status: Chronic Assessment and Plan: elevated on presentation better s/p medical management poor control at baseline due to compliance issues with BP medications follow trend of hemodynamics I will continue to follow patient with you while remains hospitalized and make further recommendations during his hospital course. Thank you for allowing me to participate in care this patient. History of Present Illness Reason for Consult Consult date: 03/31/23 Reason for consult: end stage renal disease Chief Complaint Chief complaint: Hypertension/ESRD/Urinary Retention/ Non Complianc History of Present Illness Narrative: Most of the information I have obtained is review of the electronic medical record as well as discussion with the physician/nurses involved in his care as is difficult to get a full and complete history from the patient due to his lack of cooperation. The patient is a 67-year-old male with a past medical history as outlined below who presented to [facility] Emergency room due to frequent urination. the patient reports that he always has some urinary leakage at baseline but it appears to be more so recently and was larger amounts of volume. He had no associated hematuria or dysuria and is difficult to assess if he has some baseline urinary incontinence that he is unable to explain. Due to the persistence of this symptom he presented to the ER for further assessment Workup and evaluation emergency room demonstrated the patient be quite hypertensive but he freely admits that he does not take his medications on any type of regular schedule due to the fact that he does not like the side effects that they cause. He was reinstituted on his home medications as well as IV medications with significant improvement in his blood pressure. Routine blood test demonstrated labs consistent with his known history of end-stage renal disease. Apparently, while he was in the emergency room, he saturated his bed with urine and a bladder scan after this still demonstrated greater than 200 cc of urine in his bladder and so a Buenrostro catheter was placed. Other associated symptoms including some worsening respiratory status presumably secondary to his ongoing smoking and known COPD in association with a chronic cough. Apparently, he also has had issues and problems with ambulation and there is some concern that he may require further PT/OT if not placement given his ongoing deconditioning. He was subsequently admitted to the hospital for further evaluation and therapy. Since his admission, his after he be trend has been discontinued in favor of Flomax and his blood pressure medications have been restarted with improvement in his overall hemodynamics. The patient is any fair to poor historian despite being alert oriented times 3.? The
[2023-03-31] MEDS: EPOETIN ALFA-EPBX 4,000 UNITS/ML VIAL 4000 UNITS IV PUSH (17:40)
--- NOTE | 2023-03-31 19:51 | PC.NURSE ---
This RN called patient's son Von on his home phone and cell phone regarding patient's discharge orders. Neither call was picked up and RN left voicemail message on Von's cell phone asking for a call back.
[2023-03-31] MEDS: FAMOTIDINE 20 MG TABLET PO (19:56)
[2023-03-31] MEDS: carvediloL 12.5 MG TABLET PO (19:56)
--- NOTE | 2023-03-31 20:52 | PC.NURSE ---
Leg bag applied to buenrostro catheter, son and patient educated on this.
--- NOTE | 2023-04-08 06:53 | PC.NURSE ---
Blood cx are negative. Dr. Dolores venegas.
== END 2023-03-31 21:00 | disposition home or self-care (01) ==
LOC: ANHED 03-30 01:58 → ANH2MED 03-30 03:17
PROVIDERS: Internal Medicine Nephrology; Admitting Provider Internal Medicine; Emergency Provider Emergency Medicine; PCP Nurse Practitioner; Visit Provider Internal Medicine
DX: R33.8 Other retention of urine (principal); Z91.148 Patient's other noncompliance with medication regimen for other reason; I12.0 Hypertensive chronic kidney disease with stage 5 chronic kidney disease or end stage renal disease; N18.6 End stage renal disease; D63.1 Anemia in chronic kidney disease; Z99.2 Dependence on renal dialysis; R77.8 Other specified abnormalities of plasma proteins; R26.2 Difficulty in walking, not elsewhere classified; J44.1 Chronic obstructive pulmonary disease with (acute) exacerbation; I25.10 Atherosclerotic heart disease of native coronary artery without angina pectoris; K21.9 Gastro-esophageal reflux disease without esophagitis; Z95.5 Presence of coronary angioplasty implant and graft; E78.5 Hyperlipidemia, unspecified; G47.33 Obstructive sleep apnea (adult) (pediatric); Z95.0 Presence of cardiac pacemaker; Z95.820 Peripheral vascular angioplasty status with implants and grafts; N25.0 Renal osteodystrophy; Z86.16 Personal history of COVID-19; F17.210 Nicotine dependence, cigarettes, uncomplicated; I73.9 Peripheral vascular disease, unspecified; Z79.51 Long term (current) use of inhaled steroids; Z79.01 Long term (current) use of anticoagulants; Z79.82 Long term (current) use of aspirin; Z79.899 Other long term (current) drug therapy; Z86.73 Personal history of transient ischemic attack (TIA), and cerebral infarction without residual deficits
CPT/HCPCS: 36415; 51702; 71045; 73502; 74176; 80053; 80069; 81001; 82607; 82746; 83605; 83735; 84145; 84484; 85025; 85055; 85610; 85730; 86706; 87040; 87340; 93005; 94640; 96372; 96374; 97161; 97165; 99285; A9270; G0257; G0378; J0360; J1644; J7030; J7512; Q5105

== ENCOUNTER 2023-07-17 11:16 | Inpatient (IN) | payer OTHER, SELFPAY ==
[2023-07-17] VITALS (47 sets, daily range): BP systolic 171–212; BP diastolic 88–138; PULSE 77–97; RESP 14–32; TEMP 36.6–36.8; O2SAT 93–99
--- NOTE | ~2023-07-17 | XR_ITS ---
EXAMINATION: XR chest 2V DATE: 07/17/2023 12:04 INDICATION: Transient alteration 4 and is TECHNIQUE: frontal and lateral views of the chest were obtained. COMPARISON: Chest radiograph dated 03/31/2023 FINDINGS: Large-bore dual-lumen right internal jugular central venous catheter with distal tip near the superio r cavoatrial junction. Mild increased interstitial pattern in the bilateral dependent mid and lower l talisha zones suggesting mild pulmonary edema. Calcified nodule at the posterior medial left lower lobe c onsistent with old granulomatous disease. No pleural effusion or pneumothorax. The cardiomediastinal silhouette is within normal limits for AP technique. Coronary artery stenting. Dual lead pacemaker se en with leads projecting over the expected locations of the right atrium and right ventricle. Mild to moderate lower thoracic predominant spondylosis. IMPRESSION: 1. Mild dependent interstitial opacities in the mid and lower lungs and favor mild pulmonary edema ov er pneumonia. Reviewed, dictated and finalized at location A. IMPRESSION: 1. Mild dependent interstitial opacities in the mid and lower lungs and favor m ild pulmonary edema over pneumonia.
--- NOTE | ~2023-07-17 | CT_ITS ---
EXAMINATION: CTA BRAIN/CAROTID DATE: 07/17/2023 13:48 INDICATION: Slurred speech TECHNIQUE: Computed tomographic angiography (CTA) of the head and neck was performed with 100 mL Omni paque-350 intravenous contrast. Multiplanar reconstructions and maximum intensity projection 3D-recon structions of the carotid arteries and of the intracranial arteries were created by the technologist on a separate workstation. Automated exposure control and iterative reconstruction technique were emp loyed.The dose-length product was 1011.38 mGy-cm. COMPARISON: Head CT dated 07/17/2023 and 03/06/2023 FINDINGS: Carotid arteries: Atherosclerotic plaque without mammographic significant stenosis along the visualized portion of the aortic arch which appears normal in caliber. There is small amount of atherosclerotic plaque with 0% stenosis of both the right and left carotid bulbs relative to normal distal artery lumen diameter (NA SCET criteria). The left vertebral artery is dominant. There is a severe, greater than 70% stenosis a t the origin of the right vertebral artery. Moderate emphysema at the visualized upper lungs. Large-b ore dual-lumen right internal jugular central venous catheter with distal tip near the superior cavoa trial junction the command and control systems integrator topogram. There is also a dual-lead cardiac pacemaker with lead tips at the right atrium and right ventricle and immediately prior CT. There is a filling defect likely represent ing thrombus in the distal left subclavian vein and brachiocephalic vein with contrast injection the left upper extremity extending into multiple chest wall and paraspinal collaterals. Severe cervical s pondylosis. Intracranial arteries Small old lacunar infarcts in the right cerebellar hemisphere, left skyler and left thalamus. There is no hemodynamically significant stenosis in the vertebral, basilar and internal carotid arteries. Vert ebral arteries are codominant. There are no aneurysms identified. Both A1 and P1 segments are patent . Cerebral arterial arborization appears symmetric. IMPRESSION: 1. Small amount of atherosclerotic plaque with 0% stenosis of the right and left carotid bulbs relati ve to normal distal artery lumen diameter (NASCET criteria). 2. No hemodynamically significant stenosis or aneurysm in the intracranial arteries. 3. Unchanged severe stenosis of the proximal right vertebral artery. Left vertebral artery is dominan t. 4. Unchanged small old infarcts in the right cerebellum, left skyler and left thalamus. Reviewed, dictated and finalized at location A. IMPRESSION: 1. Small amount of atherosclerotic plaque with 0% stenosis of the right and lef t carotid bulbs relative to normal distal artery lumen diameter (NASCET criteri a). 2. No hemodynamically significant stenosis or aneurysm in the intracranial vincent fabricio. 3. Unchanged severe stenosis of the proximal right vertebral artery. Left verte bral artery is dominant. 4. Unchanged small old infarcts in the right cerebellum, left skyler and left cory lamus.
--- NOTE | ~2023-07-17 | CT_ITS ---
EXAMINATION: CT brain wo con DATE: 07/17/2023 11:59 INDICATION: Altered mental status. TECHNIQUE: Computed tomography (CT) of the head was performed without intravenous contrast. The mA wa s adjusted according to patient size. Iterative reconstruction technique was employed. The dose-lengt h product was 681.00 mGy-cm. COMPARISON: Head CT 03/16/2023 FINDINGS: There are old infarcts in the skyler and left thalamus. There is a small old infarct in the l eft frontal lobe deep white matter. There are scattered areas of low attenuation in the cerebral whit e matter, which is within normal limits for the patient's age. The ventricles are normal in size. The re is mild mucosal thickening in the paranasal sinuses. There are old fracture deformities of the jxa al bones and nasal processes of maxilla. The orbits are normal. There is a left mastoid effusion. IMPRESSION: 1. Old infarcts in the left frontal lobe, left thalamus, and skyler. Reviewed, dictated and finalized at location E.
--- NOTE | 2023-07-17 11:35 | ECG_ITS ---
Measurements Intervals [place] Rate: 85 P: 71 ME: 132 QRS: 32 QRSD: 81 T: 105 QT: 375 QTc: 448 Interpretive Statements SINUS RHYTHM LEFT VENTRICULAR HYPERTROPHY AND ST-T CHANGE [VOLTAGE CRITERIA PLUS ST/T ABNORMALITY] ABNORMAL ELECTROCARDIOGRAM COMPARED TO ECG 03/29/2023 20:37:55 NO SIGNIFICANT CHANGES Electronically Signed On 07-18-2023 7:25:10 CDT by Kwasi Blas M.D.
--- NOTE | 2023-07-17 11:47 | PC.NURSE ---
Pt taken to CT on monitor.
--- NOTE | 2023-07-17 12:04 | PC.NURSE ---
Pt returned from CT
[2023-07-17 12:27] LABS: Basophils Absolute Auto 0.1 K/mm3 (0.0-0.1); Basophils Percent Auto 0.9 % (0.2-1.2); Eosinophils Absolute Auto 0.2 K/mm3 (0-0.3); Eosinophils Percent Auto 2.5 % (0-4.4); Hematocrit 30.4 % (42.0-52.0); Hemoglobin 10.1 g/dL (14.0-18.0); Immature Granulocyte Absolute 0.01 K/mm3 (0.00-0.031); Immature Granulocyte Percent A 0.2 % (0-0.5); Lymphocytes Absolute Auto 1.18 K/mm3 (0.9-3.2); Lymphocytes Percent Auto 18.5 % (18.3-44.2); Mean Corpuscular HGB Conc 33.2 g/dl (32-36); Mean Corpuscular Hemoglobin 32.6 pg (26-34); Mean Corpuscular Volume 98.1 fl (80-100); Mean Platelet Volume 10.5 fl (7.4-10.4); Monocytes Absolute Auto 0.6 K/mm3 (0.1-0.6); Monocytes Percent Auto 9.4 % (2.6-8.5); Neutrophils Absolute Auto 4.4 K/mm3 (1.3-6.7); Neutrophils Percent Auto 68.5 % (45.5-73.1); Platelet Count Result 233 k/mm3 (150-375); Red Cell Distribution Width 13.6 % (11.5-14.5); White Blood Count 6.4 K/mm3 (4.5-10.0)
--- NOTE | 2023-07-17 12:30 | PC.NURSE ---
Pt unable to urinate at this time. EDP made aware. Pt is dialysis pt. Per EDP no gomez on urine.
--- NOTE | 2023-07-17 13:15 | PC.NURSE ---
EDP aware pt blood pressures. No new orders received.
[2023-07-17 13:38] LABS: Alanine Aminotransferase 15 U/L (6-50); Albumin Level 4.3 g/dL (3.5-5.1); Alkaline Phosphatase 56 U/L (38-126); Anion Gap 11 mmol/L (8-16); Aspartate Amino Transferase 21 U/L (17-59); Bilirubin,Total 0.6 mg/dL (0.2-1.3); Blood Urea Nitrogen 27 mg/dL (9-20); Carbon Dioxide 29 mmol/L (22-30); Chloride 99 mmol/L (98-107); Estimated CRCL calculation 8 ml/min; Estimated Glomerular Filt Rate 8; Glucose 91 mg/dL (65-110); Potassium 4.2 mmol/L (3.4-5.0); Sodium 139 mmol/L (137-145)
--- NOTE | 2023-07-17 13:49 | PC.NURSE ---
Pt returned from CT
[2023-07-17 14:44] LABS: Appearance Urine Clear (Clear); Bacteria Urine None Seen /hpf; Bilirubin Urine Negative (Negative); Blood Urine Trace (Negative); Color Urine Yellow (Yellow); Glucose Urine UA Trace mg/dL (Negative); Ketones Urine Negative (Negative); Leukocyte Esterase Ur Negative LEU/UL (Negative); Nitrate Urine Negative (Negative); Non Pathogenic Casts 0-2; Protein Urine 2+ mg/dL (Negative); RBC Urine 0-2 /hpf (0-2); Squamous Epithelial Cell Urine None seen /hpf (Few); Urobilinogen Urine 0.2 mg/dL (<2.0); WBC Urine 0-5 /hpf; pH Urine 8.5 (5.0-9.0)
[2023-07-17 14:56] LABS: Add Urine Microscopic? YES
--- NOTE | 2023-07-17 16:23 | ED.NEUROSD ---
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 Related Data Home Medications Medication Instructions Recorded Confirmed famotidine 20 mg tablet 20 mg PO HS 03/19/22 03/30/23 nifedipine 90 mg tablet,extended 90 mg PO DAILY 03/19/22 03/30/23 release umeclidinium 62.5 mcg/actuation 1 inh inhalation DAILY 03/24/22 03/30/23 blister powder for inhalation (Incruse Ellipta) fluticasone 500 mcg-salmeterol 50 1 inh inhalation BID 04/24/22 03/30/23 mcg/dose blistr powdr for inhalation (Advair Diskus) clonidine HCl 0.1 mg tablet 0.1 mg PO TID 03/30/23 03/30/23 sodium bicarbonate 650 mg tablet 650 mg PO TID 03/30/23 03/30/23 Allergies Allergy/AdvReac Type Severity Reaction Status Date / Time No Known Allergies Allergy Verified 03/16/23 17:29 Review of Systems Review of Systems: ROS unobtainable: Yes unobtainable due to mental status [facility] Past Medical History Medical History (Updated 07/17/23 @ 19:26 by Sara Godwin MD) Cerebrovascular accident Chronic obstructive pulmonary disease Coronary artery disease COVID-19 (02/2022) End-stage renal disease on hemodialysis Friday Erythropoietin deficiency anemia Facial edema GERD with esophagitis Hyperlipidemia Hypertension Obstructive sleep apnea Pacemaker Peripheral vascular disease Renal osteodystrophy Seizure-like activity Normal EEG in April 2022 though patient is on levetiracetam. Tobacco abuse Vertebral artery stenosis Surgical History Surgical History History of percutaneous coronary intervention Iliac stent. Cardiac stents. History of permanent cardiac pacemaker placement S/P hemodialysis catheter insertion Family History Family History Father Cancer of lung Mother Heart failure Social History Social History Social History: He lives with his son. The patient continues to smoke a pack a cigarettes a day. He is listed as single and unemployed. Healthcare power of commonwealth attorney: Von Donahue, son. Code status: Full code. Smoking packs per day: 1 Smoking cigarettes per day: 20.0 Years smoked: 50 Smoking pack-years: 50.00 Smoking status: Never smoker Tobacco type: cigarettes Second hand tobacco smoke exposure: No Alcohol intake: never Substance use: current Substance use type: marijuana Other substance usage details: on occasion unsure of last use Lack of Transportation: YES Lack of Food: Never True Current Housing: I Have Housing Concerned About Future Housing: No Difficulty Paying Gas/Electric Bills: YES Difficulty Paying for Meds: No Currently Unemployed: No Education: Grade School Difficulty w/ Childcare or Family Care: No Additional living arrangements comments: The patient lives in [place]. His son Von lives at home with him. Spiritual care concerns: No Exam Narrative: EXAMINATION OF ORGAN SYSTEMS/BODY AREAS: Constitutional: Vital signs per nursing GENERAL:[No acute distress, non-toxic appearing.] HEAD: Normal with no signs of head trauma. EYES: EOMI, conjunctiva normal, PERRL ENT: No facial asymmetry LUNGS: Nonlabored breathing. HEART: [Regular rate and rhythm] ABD: [Soft], [nontender to palpation] EXT: Normal range of motion bilateral upper and lower extremities SKIN: [No rashes or lesions.] NEURO: [Alert. Seems to babble in response to questions but does follow commands; No gross focal sensory or strength deficits.] PSYCH: Normal affect Course Vital Signs Vital signs:
--- NOTE | 2023-07-17 19:04 | PC.NURSE ---
RN spoke with son, son answered some admission questions but stated he has no clue what medications he takes states we should call his pharmacy or primary physician to get medication list.
--- NOTE | 2023-07-17 19:26 | PM.IMHP ---
H&P: HPI History of Present Illness Date/Time: 07/17/23 19:26 Chief Complaint: Gait disturbance Narrative: This is a 67-year-old male with past medical history significant for end-stage renal disease on hemodialysis, COPD/emphysema, congestive heart failure, hypertension, seizure disorder, benign prostatic hyperplasia, stroke, GERD, pacemaker in place, peripheral vascular disease, tobacco dependence. I was unable to obtain any meaningful history from the patient at the time of my visit according to medical records patient was brought to the emergency room for evaluation after caregiver noticed that he was stumbling and he was not making sense. Preliminary workup was significant for chest x-ray with lung infiltrates. Patient is been admitted for further evaluation management and treatment. EXAMINATION: CT brain wo con DATE: 07/17/2023 11:59 INDICATION: Altered mental status. TECHNIQUE: Computed tomography (CT) of the head was performed without intravenous contrast. The mA was adjusted according to patient size. Iterative reconstruction technique was employed. The dose-length product was 681.00 mGy-cm. COMPARISON: Head CT 03/16/2023 FINDINGS: There are old infarcts in the skyler and left thalamus. There is a small old infarct in the left frontal lobe deep white matter. There are scattered areas of low attenuation in the cerebral white matter, which is within normal limits for the patient's age. The ventricles are normal in size. There is mild mucosal thickening in the paranasal sinuses. There are old fracture deformities of the nasal bones and nasal processes of maxilla. The orbits are normal. There is a left mastoid effusion. IMPRESSION: 1. Old infarcts in the left frontal lobe, left thalamus, and skyler. EXAMINATION: XR chest 2V DATE: 07/17/2023 12:04 INDICATION: Transient alteration 4 and is TECHNIQUE: frontal and lateral views of the chest were obtained. COMPARISON: Chest radiograph dated 03/31/2023 FINDINGS: Large-bore dual-lumen right internal jugular central venous catheter with distal tip near the superior cavoatrial junction. Mild increased interstitial pattern in the bilateral dependent mid and lower lung zones suggesting mild pulmonary edema. Calcified nodule at the posterior medial left lower lobe consistent with old granulomatous disease. No pleural effusion or pneumothorax. The cardiomediastinal silhouette is within normal limits for AP technique. Coronary artery stenting. Dual lead pacemaker seen with leads projecting over the expected locations of the right atrium and right ventricle. Mild to moderate lower thoracic predominant spondylosis. IMPRESSION: 1. Mild dependent interstitial opacities in the mid and lower lungs and favor mild pulmonary edema over pneumonia. EXAMINATION: CTA BRAIN/CAROTID DATE: 07/17/2023 13:48 INDICATION: Slurred speech TECHNIQUE: Computed tomographic angiography (CTA) of the head and neck was performed with 100 mL Omnipaque-350 intravenous contrast. Multiplanar reconstructions and maximum intensity projection 3D-reconstructions of the carotid arteries and of the intracranial arteries were created by the technologist on a separate workstation. Automated exposure control and iterative reconstruction technique were employed.The dose-length product was 1011.38 mGy-cm. COMPARISON: Head CT dated 07/17/2023 and 03/06/2023 ? FINDINGS: Carotid arteries: Atherosclerotic plaque without mammographic significant stenosis along the visualized portion of the aortic arch which appears normal in caliber. There is small amount of atherosclerotic plaque with 0% stenosis of both the right and left carotid bulbs relative to normal distal artery lumen diameter (NASCET criteria). The left vertebral artery is dominant. There is a severe, greater than 70% stenosis at the origin of the right vertebral artery. Moderate emphysema at the visualized upper lungs. Large-bore dual-lumen right internal jugular central
--- NOTE | 2023-07-17 20:58 | PC.NURSE ---
This RN called pt pharmacy referring to home meds, this RN will put in home meds.
[2023-07-17] MEDS: hydrALAZINE HCL 20 MG/ML VIAL 10 MG IV PUSH ×2 (20:59→23:31)
--- NOTE | 2023-07-17 22:40 | ECG_ITS ---
Measurements Intervals [place] Rate: 99 P: 90 ND: 135 QRS: 83 QRSD: 87 T: 151 QT: 401 QTc: 515 Interpretive Statements REDUCED DATA QUALITY BECAUSE OF BASELINE ARTIFACT SINUS RHYTHM POSSIBLE LEFT ATRIAL ENLARGEMENT [-0.1mV P WAVE IN V1/V2] LEFT VENTRICULAR HYPERTROPHY WITH SECONDARY REPOLARIZATION ABNORMALITY ABNORMAL ECG COMPARED TO ECG 07/17/2023 11:42:01 NO SIGNIFICANT CHANGE Electronically Signed On 07-18-2023 7:33:48 CDT by Kwasi Blas M.D.
[2023-07-17] MEDS: MORPHINE SULFATE (*CRX) 2 MG/ML INJ 1 MG IV PUSH (23:31)
[2023-07-17] MEDS: IPRATROPIUM BR 0.02% INH SOLN 0.5 MG/2.5 ML VIAL INHALATION (23:59)
[2023-07-17] MEDS: ALBUTEROL SULFATE NEB 2.5 MG/3 ML INH 1.25 MG INHALATION (23:59)
[2023-07-18] VITALS (29 sets, daily range): BP systolic 100–208; BP diastolic 50–107; PULSE 66–97; RESP 14–20; TEMP 36.2–37; O2SAT 92–98
[2023-07-18] MEDS: FUROSEMIDE INJ 40 MG/4 ML VIAL IV PUSH (01:32)
[2023-07-18] MEDS: MORPHINE SULFATE (*CRX) 2 MG/ML INJ 1 MG IV PUSH (01:32)
[2023-07-18] MEDS: AZITHROMYCIN 500 MG/NS 250 ML 500 MG/250 ML BAG 250 MG IVPB (02:55)
[2023-07-18] MEDS: cloNIDine HCL 0.1 MG TABLET PO ×3 (02:55→16:35)
--- NOTE | 2023-07-18 04:17 | PC.NURSE ---
This RN called provider regarding to pt BP, provider ordered all morning meds to be given now, and not given with morning dose.
[2023-07-18] MEDS: CEFEPIME 0.5 GM in DEXTROSE 5% IN WATER 50 ML IVPB (04:26)
[2023-07-18] MEDS: carvediloL 12.5 MG TABLET PO (04:26)
[2023-07-18] MEDS: NIFEdipine 30 MG TAB.ER.24 60 MG PO (04:26)
[2023-07-18] MEDS: LOSARTAN POTASSIUM 100 MG TABLET PO (04:27)
[2023-07-18] MEDS: ISOSORBIDE MONONITRATE 30 MG TAB.ER.24H PO (04:27)
[2023-07-18 06:47] LABS: MRSA (PCR) NOT DETECTED (NOT DETECTE)
[2023-07-18 06:49] LABS: Basophils Absolute Auto 0.1 K/mm3 (0.0-0.1); Basophils Percent Auto 1.1 % (0.2-1.2); Eosinophils Absolute Auto 0.1 K/mm3 (0-0.3); Eosinophils Percent Auto 1.1 % (0-4.4); Hematocrit 29.6 % (42.0-52.0); Hemoglobin 9.4 g/dL (14.0-18.0); Immature Granulocyte Absolute 0.02 K/mm3 (0.00-0.031); Immature Granulocyte Percent A 0.4 % (0-0.5); Lymphocytes Absolute Auto 0.99 K/mm3 (0.9-3.2); Lymphocytes Percent Auto 17.5 % (18.3-44.2); Mean Corpuscular HGB Conc 31.8 g/dl (32-36); Mean Corpuscular Hemoglobin 32.1 pg (26-34); Mean Platelet Volume 10.1 fl (7.4-10.4); Monocytes Absolute Auto 0.4 K/mm3 (0.1-0.6); Monocytes Percent Auto 6.2 % (2.6-8.5); Neutrophils Absolute Auto 4.2 K/mm3 (1.3-6.7); Neutrophils Percent Auto 73.7 % (45.5-73.1); Platelet Count Result 225 k/mm3 (150-375); Red Blood Count 2.93 M/mm3 (4.6-6.20); Red Cell Distribution Width 13.6 % (11.5-14.5); White Blood Count 5.7 K/mm3 (4.5-10.0)
[2023-07-18 07:04] LABS: Alanine Aminotransferase 13 U/L (6-50); Alkaline Phosphatase 49 U/L (38-126); Anion Gap 12 mmol/L (8-16); Aspartate Amino Transferase 19 U/L (17-59); Bilirubin,Total 0.5 mg/dL (0.2-1.3); Blood Urea Nitrogen 31 mg/dL (9-20); Calcium 8.7 mg/dL (8.4-10.2); Carbon Dioxide 27 mmol/L (22-30); Chloride 98 mmol/L (98-107); Estimated CRCL calculation 7 ml/min; Estimated Glomerular Filt Rate 6; Glucose 127 mg/dL (65-110); Potassium 4.3 mmol/L (3.4-5.0); Sodium 137 mmol/L (137-145)
[2023-07-18 07:59] LABS: Hepatitis B Surface Antigen Negative (Negative)
[2023-07-18 08:17] LABS: Hepatitis B Surface Anti Res Negative
[2023-07-18] MEDS: FLUTICASONE/SALMETEROL 230-21 MCG INHALER 1 PUFF 2 PUFF INHALATION (08:54)
[2023-07-18] MEDS: ASPIRIN 81 MG ENTERIC TABLET PO (09:00)
--- NOTE | 2023-07-18 09:21 | PCSTNOTE ---
Please refer to the Bedside Swallow Evaluation in the EMR. Please note, silent aspiration cannot be ruled out at bedside.
--- NOTE | 2023-07-18 09:45 | PM.CNNEP ---
Assessment and Plan Assessment and plan (1) End stage renal disease: Code(s): N18.6 - End stage renal disease Status: Chronic Assessment and Plan: HD today continue M/W/F dialysis schedule follow electrolytes, volume status, and clearance (2) Altered mental status: Code(s): R41.82 - Altered mental status, unspecified Status: Acute Assessment and Plan: due to infection (pneumonia)? medication effect? brain imaging noted follow mentation with current therapy (3) Pneumonia: Code(s): J18.9 - Pneumonia, unspecified organism Status: Acute Assessment and Plan: as suggested by admission CXR on antibiotic therapy follow culture data follow respiratory status (4) Anemia: Code(s): D64.9 - Anemia, unspecified Status: Chronic Assessment and Plan: related to ESRD Epogen with HD follow trend of H/H (5) Hypertension: Code(s): I10 - Essential (primary) hypertension Status: Chronic Assessment and Plan: elevated on presentation better s/p medical management poor control at baseline due to compliance issues with BP medications follow trend of hemodynamics I will continue to follow patient with you while remains hospitalized and make further recommendations during his hospital course. Thank you for allowing me to participate in care this patient. History of Present Illness Reason for Consult Consult date: 07/18/23 Reason for consult: end stage renal disease Chief Complaint Chief complaint: aphasia/dysarthria History of Present Illness Narrative: Most of the information I have obtained is review of the electronic medical record as well as discussion with the physician/nurses involved in his care as is difficult to get a full and complete history from the patient's altered mental status. The patient is a 67-year-old male with extensive past medical history as outlined below who apparently presented to [facility] Emergency room due to altered mental status. According to family members, the patient was stumbling around and not making any sense whenever he verbalized which is somewhat of a change from his baseline. However, from my personal recollection of taking care of this patient in the past, at baseline, he is somewhat noncooperative and not very forthcoming with information and sometimes does not make sense even at baseline. Workup and evaluation emergency room demonstrated the patient be hemodynamically stable if not hypertensive. Routine blood test demonstrated labs consistent with his known history of end-stage renal disease and a chest x-ray was significant for evidence of lung infiltrates suggestive of pneumonia. Subsequent imaging of his brain including a CTA of his head and neck demonstrated small amount of atherosclerotic plaque with 0% stenosis of the right and left carotid bulbs, no hemodynamically significant stenosis or aneurysm of the intracranial arteries, and unchanged severe stenosis of the proximal right vertebral artery and small old infarcts in the right cerebellum, left skyler, and left thalamus. Given his constellation of symptoms particularly with regard to his altered mentation which seems to be worse than baseline in association with his complex medical history, appropriate cultures were obtained and he was started on antibiotics for pneumonia and subsequently admitted to the hospital for further evaluation and therapy for his altered mentation Renal consultation was requested due to his end-stage renal disease. The patient normally dialyzes on a Friday, Friday, schedule under the care of Dr. Reji Forte at [facility]. The patient is somewhat familiar to me as I taken care of him before on previous hospitalizations here at [facility]. Despite his known history of end-stage renal disease, he still has a significant component of residual kidney function
--- NOTE | 2023-07-18 09:53 | PM.IMPN ---
Progress Note: A&P Assessment and Plan (1) Altered mental status: Code(s): R41.82 - Altered mental status, unspecified Status: Acute Assessment and Plan: Likely encephalopathy secondary to acute illness Admit to med tele continue treatment of PNA (2) Hypoxia: Code(s): R09.02 - Hypoxemia Status: Acute Assessment and Plan: On supplemental oxygen by nasal cannula titrate oxygen with clinical course (3) Dysarthria: Code(s): R47.1 - Dysarthria and anarthria Status: Acute Assessment and Plan: Ct head unremarkable CTA head and neck showed >70% Right vertebral artery patient has chronic aphasia (4) Ambulatory dysfunction: Code(s): R26.2 - Difficulty in walking, not elsewhere classified Status: Acute Assessment and Plan: Bedrest Fall precautions (5) ESRD (end stage renal disease) on dialysis: Code(s): N18.6 - End stage renal disease; Z99.2 - Dependence on renal dialysis Status: Acute Assessment and Plan: Continue hemodialysis Nephrology consult (6) Pacemaker: Code(s): Z95.0 - Presence of cardiac pacemaker Status: Acute Assessment and Plan: Continue to monitor (7) Obstructive sleep apnea: Code(s): G47.33 - Obstructive sleep apnea (adult) (pediatric) Status: Acute Assessment and Plan: Unclear if use of CPAP at nighttime (8) Tobacco dependence: Code(s): F17.200 - Nicotine dependence, unspecified, uncomplicated Status: Acute Assessment and Plan: Nicotine patch as needed (9) Pneumonia: Code(s): J18.9 - Pneumonia, unspecified organism Status: Acute Assessment and Plan: f/u cultures, cotninue abx MRSA negative, thus Vanc stopped Subjective Date/time seen: 07/18/23 09:53 Interval history: Patient is aphasia which is his baseline MRSA negative, thus Vanc stopped Review of Systems Review of Systems: ROS unobtainable: Yes unobtainable due to medical condition (Aphasic) Neurologic: Reports Abnormal speech present Exam Narrative: Patient is laying in bed Const: General: comfortable, no acute distress, well developed, alert, awake, ill appearing chronically, average body habitus, thin and edematous (Periorbital and face) Nutritional Appearance: average body habitus, thin and edematous (Periorbital and face) Orientation/consciousness: oriented to person and patient oriented x3 HENMT: Head: normal to inspection, normocephalic and atraumatic Ears: hearing grossly normal bilaterally Face/Nose/Sinus: normal facial exam Face and sinus: normal facial exam and other (Periorbital edema left face edema more accentuated) Eyes: General: appearance normal, both eyes and all related structures Pupils: Equal, round and reactive pupils present EOM: EOMs intact bilaterally Neck: Neck: full ROM, no lymphadenopathy and no JVD Thyroid: thyroid normal Lymphatic: no lymphadenopathy noted Resp: Effort & Inspection: normal respiratory effort and able to speak in complete sentences Auscultation: clear to auscultation bilaterally Cardio: Jugular venous distension: no JVD Rate: regular rate Rhythm: regular rhythm Heart sounds: S1 normal heart sound present and S2 normal heart sound present GI: Inspection: normal to inspection : General: Yes deferred Skin: Rashes: no rashes Wounds: no wounds Neuro: General: oriented to person, patient oriented x3, CN's II-XI intact bilaterally and Unable to assess gait Cranial nerves: Yes CN's II-XII intact bilaterally and Yes Equal, round and reactive pupils present Cognition (Neuro): normal cognition Speech: Abnormal speech present and Expressive aphasia present Gait exam (Neuro): Unable to assess gait Motor exam (neuro): 5/5 motor strength present throughout Extrem: General: normal to inspection, full ROM, no joint enlargement and no pedal edema Objective Data Vital Signs Vital Signs: Vital Signs
[2023-07-18] MEDS: SODIUM CHLORIDE 0.9% IV 1,000 ML 999 ML IV CONT (10:40)
[2023-07-18] MEDS: EPOETIN ALFA-EPBX 10,000 UNITS/ML VIAL 10000 UNITS IV PUSH (10:40)
--- NOTE | 2023-07-18 11:00 | PC.NURSE ---
AM meds will be late. pt in dialysis. per professor of social work, not morning meds given until after dialysis.
[2023-07-18] MEDS: DIVALPROEX SODIUM ER 500 MG TAB.24H PO (12:02)
[2023-07-18] MEDS: levETIRAcetam 250 MG TABLET PO (12:06)
[2023-07-18] MEDS: CLOPIDOGREL BISULFATE 75 MG TABLET PO (12:21)
[2023-07-18] MEDS: TAMSULOSIN HCL 0.4 MG CAPSULE PO (12:29)
[2023-07-18] MEDS: ATORVASTATIN 40 MG TABLET PO (12:29)
[2023-07-18] MEDS: SODIUM BICARBONATE TAB 650 MG TABLET PO ×2 (12:29→16:35)
--- NOTE | 2023-08-01 09:13 | PM.TDS ---
Transfer Discharge Sum: Prov Provider Date of admission: 07/18/23 13:05 Primary care physician: Azael Sanchez, RESOURCE MANAGEMENT PLANNER Admitting clinician: Isis Chavez MD Consults: 07/17/23 Consult to Physician Routine Comment: Consulting Provider: Len Larry Reason for consultation: n dialysis Has provider been notified: Yes 07/17/23 15:47 Consult to Physician Routine Comment: Consulting Provider: Isis Chavez Reason for consultation: cva/aphasia/AMS Has provider been notified: Yes DS: Admitting Diagnosis Discharge Date 07/18/23 Admitting Diagnosis AMS DS: Discharge Diagnosis Discharge Diagnosis (1) Pneumonia: Code(s): J18.9 - Pneumonia, unspecified organism Status: Acute (2) End stage renal disease: Code(s): N18.6 - End stage renal disease Status: Chronic Transfer Discharge Sum: Med Medications Active and Home Medications: Home Medications famotidine 20 mg tablet 20 mg PO HS 03/19/22 [History Confirmed 07/17/23] umeclidinium 62.5 mcg/actuation blister powder for inhalation (Incruse Ellipta) 1 inh inhalation DAILY 03/24/22 [History Confirmed 07/17/23] fluticasone 500 mcg-salmeterol 50 mcg/dose blistr powdr for inhalation (Advair Diskus) 1 inh inhalation BID 04/24/22 [History Confirmed 07/17/23] levetiracetam 250 mg tablet 250 mg PO Q12HR #60 tabs 05/10/22 [Rx Confirmed 07/17/23] carvedilol 12.5 mg tablet (Coreg) 12.5 mg PO Q12HR 1 month #60 tabs 03/06/23 [Rx Confirmed 07/17/23] aspirin 81 mg capsule 81 mg PO DAILY 1 month #30 caps 03/08/23 [Rx Confirmed 07/17/23] clopidogrel 75 mg tablet (Plavix) 75 mg PO DAILY 1 month #30 tabs 03/08/23 [Rx Confirmed 07/17/23] clonidine HCl 0.1 mg tablet 0.1 mg PO TID 03/30/23 [History Confirmed 07/17/23] Advair Diskus 1 puff inhalation BID 07/17/23 [History Confirmed 07/17/23] Keppra 250 mg PO BID 07/17/23 [History Confirmed 07/17/23] atorvastatin 40 mg tablet 40 mg PO DAILY 07/17/23 [History Confirmed 07/17/23] divalproex 250 mg tablet,extended release 24 hr (Depakote ER) 500 mg PO DAILY 07/17/23 [History Confirmed 07/17/23] losartan 100 mg tablet 100 mg PO DAILY 07/17/23 [History Confirmed 07/17/23] nifedipine 60 mg PO DAILY 07/17/23 [History Confirmed 07/17/23] sodium bicarbonate 10 g PO TID 07/17/23 [History Confirmed 07/17/23] tamsulosin 0.4 mg capsule 0.4 mg PO DAILY 07/17/23 [History Confirmed 07/17/23] isosorbide mononitrate 30 mg tablet,extended release 24 hr 30 mg PO DAILY 07/18/23 [History Confirmed 07/18/23] Transfer Discharge Sum: Hosp Hospital Course Hospital course: This is a 67-year-old male with past medical history significant for end-stage renal disease on hemodialysis, COPD/emphysema, congestive heart failure, hypertension, seizure disorder, benign prostatic hyperplasia, stroke, GERD, pacemaker in place, peripheral vascular disease, tobacco dependence.? I was unable to obtain any meaningful history from the patient at the time of my visit according to medical records patient was brought to the emergency room for evaluation after caregiver noticed that he was stumbling and he was? not making sense.? Preliminary workup was significant for chest x-ray with lung infiltrates.? Patient is been admitted for further evaluation management and treatment. Patient transferred to a higher level of care. Topical management Assessment and Plan (1) Altered mental status: ?Code(s): R41.82 - Altered mental status, unspecified ?Status:?Acute ?Assessment and Plan: Likely encephalopathy secondary to acute illness Admit to [facility] tele continue treatment of PNA (2) Hypoxia: ?Code(s): R09.02 - Hypoxemia ?Status:?Acute ?Assessment and Plan: On supplemental oxygen by nasal cannula titrate oxygen with clinical course (3) Dysarthria: ?Code(s): R47.1 - Dysarthria and anarthria ?Status:?Acute ?Assessment and Plan: Ct head unremarkable CTA head and neck showed >70% Right vertebral vincent
== END 2023-07-18 20:15 | disposition short-term general hospital (02) | DRG 139 ==
LOC: ANHED 11:57 → ANH3MEDSUR 16:47
PROVIDERS: Internal Medicine; Internal Medicine Nephrology; Admitting Provider Internal Medicine; Emergency Provider Emergency Medicine; PCP Nurse Practitioner; Visit Provider Internal Medicine
DX: J18.9 Pneumonia, unspecified organism (principal); G93.49 Other encephalopathy; I12.0 Hypertensive chronic kidney disease with stage 5 chronic kidney disease or end stage renal disease; N18.6 End stage renal disease; D63.1 Anemia in chronic kidney disease; J44.0 Chronic obstructive pulmonary disease with (acute) lower respiratory infection; R47.01 Aphasia; R91.8 Other nonspecific abnormal finding of lung field; R09.02 Hypoxemia; R47.1 Dysarthria and anarthria; R26.2 Difficulty in walking, not elsewhere classified; E78.5 Hyperlipidemia, unspecified; G47.33 Obstructive sleep apnea (adult) (pediatric); K21.9 Gastro-esophageal reflux disease without esophagitis; F17.210 Nicotine dependence, cigarettes, uncomplicated; I25.10 Atherosclerotic heart disease of native coronary artery without angina pectoris; Z95.5 Presence of coronary angioplasty implant and graft; Z95.820 Peripheral vascular angioplasty status with implants and grafts; Z95.0 Presence of cardiac pacemaker; Z99.2 Dependence on renal dialysis; Z86.73 Personal history of transient ischemic attack (TIA), and cerebral infarction without residual deficits; Z86.16 Personal history of COVID-19
CPT/HCPCS: 36415; 70450; 70496; 70498; 71046; 80053; 81001; 85025; 86706; 87340; 87641; 92522; 92610; 93005; 94640; 96365; 96366; 96367; 96374; 96375; 96376; 99285; A9270; G0257; G0378; G0379; J0360; J0456; J0692; J1644; J1940; J2270; J3370; J7030; Q5105; Q9967

== ENCOUNTER 2023-08-15 11:52 | Inpatient (IN) | payer OTHER, SELFPAY ==
[2023-08-15] VITALS (28 sets, daily range): BP systolic 100–220; BP diastolic 54–142; PULSE 72–113; RESP 18–26; TEMP 35.7–37; O2SAT 94–100; BMI 20.2
--- NOTE | ~2023-08-15 | XR_ITS ---
EXAMINATION: XR chest 1V portable INDICATION: Assessment of pulmonary edema and/or pneumonia. TECHNIQUE: Portable AP chest at 1210 hours COMPARISON: 07/17/2023 FINDINGS: There are minimal airspace opacities of the lung bases, right greater than left. There is a small right pleural effusion. There is no pneumothorax. The cardiomediastinal silhouette is stable. A right internal jugular catheter ends with its tip in the distal superior vena cava. A dual-lead car diac pacemaker of the left chest wall ends with leads in expected locations. IMPRESSION: 1. Airspace opacities of the lung bases, right greater than left, consistent with atelectasis versus pneumonia versus pulmonary edema. 2. Small right pleural effusion. Reviewed, dictated and finalized at location [facility] IMPRESSION: 1. Airspace opacities of the lung bases, right greater than left, consistent wi th atelectasis versus pneumonia versus pulmonary edema. 2. Small right pleural effusion.
--- NOTE | 2023-08-15 10:55 | ADMGEN ---
This patient, Sachin Donahue, was admitted to IMU Room 207-01. Patient/family oriented to hospital policies and general routines including ID bracelet, bed and alarms, visiting hours, pain management, procedures, bathroom and other care routines, personal items, smoking policy, room service/diet, and visiting hours. Information on how to activate the Rapid Response Team has been discussed. Patient/Family are encouraged to report perceived risks to care and to ask questions if they do not understand what they are told or what they should do.
--- NOTE | 2023-08-15 12:11 | ECG_ITS ---
Measurements Intervals [facility] Rate: 76 P: 61 AR: 135 QRS: 26 QRSD: 97 T: 95 QT: 456 QTc: 513 Interpretive Statements SINUS RHYTHM LEFT VENTRICULAR HYPERTROPHY AND ST-T CHANGE BORDERLINE ST-T WAVE ABNORMALITY- INF/HIGH LAT LEADS BASELINE ARTIFACT- I, III, AVL, AVF BORDERLINE ECG COMPARED TO ECG 07/17/2023 22:51:13 ST (T WAVE) DEVIATION NOW PRESENT Electronically Signed On 08-15-2023 15:42:58 COMBER SETTER by Varun Ashraf D.O.
[2023-08-15] MEDS: hydrALAZINE HCL 20 MG/ML VIAL 25 MG IV PUSH (12:17)
--- NOTE | 2023-08-15 12:31 | PM.IMHP ---
H&P: HPI History of Present Illness Date/Time: 08/15/23 12:31 Chief Complaint: can't breathe Narrative: This is a 67 y/o M with complicated PMH of - ESRD on HD MWF- primarily seen by Dr. Reji Forte at [facility], COPD/emphysema actively smoking 1ppd, mild diastolic CHF with a previously near normal echo, vasculopath with both cardiac and iliac stents reported an unknown time ago, HTN, seizure d/o on 2 anti-epileptics, BPH, stroke, GERD, PM in place- who is presenting with a 1 day hx of dyspnea in the setting of missing 2 sessions of HD due to holidays and them per pt. His PMH includes a recent admission to [facility] about 1 mo ago- 07/18/23. He was admitted for AMS, suspected due to PNA. He was transferred to another unknown hospital for an unclear reason. Pt is still actively smoking 1ppd. Pt reports he did not take his meds today, but took them yesterday. He also reports some chest pain when asked if he had chest pain. He seems in minimal distress on exam. He is presenting as a transfer from [facility] in [place]. I received the physician to physician transfer around 10 am today. In the ED, he was seen to be 70% on room air, tachypneic, with elevated bp to 230's sbp, that lowered to 201/113 with 1 dose of 5 mg IV metoprolol and 0.2 mg clonidine. He was placed on 4L O2. He was given 1 dose of solumedrol of unknown quantity and duoneb at [facility]. His HR improved from 120-130's to 70's with treatment by the ER. His WBC was 24.1 and his lactic acid was 2.1. His CXR showed pulmonary congestion and RLL infiltrate on CXR. He was transferred here to [facility] because [facility] does not have the ability to provide dialysis. I touched base with the nursery worker Dr. Larry on this pt's admission. Review of Systems Review of Systems: see above. no additional positives. [facility] Past Medical History Medical History (Updated 07/18/23 @ 10:12 by Isis Chavez MD) Cerebrovascular accident Chronic obstructive pulmonary disease Coronary artery disease COVID-19 (02/2022) End-stage renal disease on hemodialysis Friday Erythropoietin deficiency anemia Facial edema GERD with esophagitis Hyperlipidemia Hypertension Obstructive sleep apnea Pacemaker Peripheral vascular disease Renal osteodystrophy Seizure-like activity Normal EEG in April 2022 though patient is on levetiracetam. Tobacco abuse Vertebral artery stenosis Surgical History Surgical History History of percutaneous coronary intervention Iliac stent. Cardiac stents. History of permanent cardiac pacemaker placement S/P hemodialysis catheter insertion Family History Family History Father Cancer of lung Mother Heart failure Social History Social History Social History: He lives with his son. The patient continues to smoke a pack a cigarettes a day. He is listed as single and unemployed. Healthcare power of traffic law attorney: Von Donahue, son. Code status: Full code. Smoking packs per day: 1 Smoking cigarettes per day: 20.0 Years smoked: 50 Smoking pack-years: 50.00 Smoking status: Never smoker Tobacco type: cigarettes Second hand tobacco smoke exposure: No Alcohol intake: never Substance use: current Substance use type: does not use Other substance usage details: on occasion unsure of last use Lack of Transportation: No Lack of Food: Never True Current Housing: I Have Housing Concerned About Future Housing: No Difficulty Paying Gas/Electric Bills: No Difficulty Paying for Meds: No Currently Unemployed: No Education: Decline to Answer Difficulty w/ Childcare or Family Care: No Additional living arrangements comments: The patient lives in [place]. His son Von lives at home wit
[2023-08-15 13:03] LABS: Basophils Percent Auto 0.5 % (0.2-1.2); Hematocrit 32.5 % (42.0-52.0); Hemoglobin 10.5 g/dL (14.0-18.0); Immature Granulocyte Absolute 0.03 K/mm3 (0.00-0.031); Immature Granulocyte Percent A 0.4 % (0-0.5); Lymphocytes Absolute Auto 0.33 K/mm3 (0.9-3.2); Lymphocytes Percent Auto 4.2 % (18.3-44.2); Mean Corpuscular HGB Conc 32.3 g/dl (32-36); Mean Corpuscular Hemoglobin 33.1 pg (26-34); Mean Corpuscular Volume 102.5 fl (80-100); Mean Platelet Volume 9.9 fl (7.4-10.4); Monocytes Absolute Auto 0.1 K/mm3 (0.1-0.6); Monocytes Percent Auto 0.6 % (2.6-8.5); Neutrophils Absolute Auto 7.4 K/mm3 (1.3-6.7); Neutrophils Percent Auto 94.3 % (45.5-73.1); Platelet Count Result 244 k/mm3 (150-375); Red Blood Count 3.17 M/mm3 (4.6-6.20); Red Cell Distribution Width 13.8 % (11.5-14.5); White Blood Count 7.9 K/mm3 (4.5-10.0)
[2023-08-15 13:08] LABS: Influenza A QL RT-PCR Negative (Negative); Influenza B QL RT-PCR Negative (Negative); RSV RNA, RT-PCR Negative (Negative); SARS-CoV-2 RNA PCR Negative (Negative)
[2023-08-15 13:14] LABS: Lactic Acid Reflex 1.2 mmol/L (0.7-2.0)
[2023-08-15 13:20] LABS: Alanine Aminotransferase 23 U/L (6-50); Albumin Level 4.1 g/dL (3.5-5.1); Alkaline Phosphatase 58 U/L (38-126); Anion Gap 16 mmol/L (8-16); Aspartate Amino Transferase 36 U/L (17-59); Bilirubin,Total 0.5 mg/dL (0.2-1.3); Blood Urea Nitrogen 58 mg/dL (9-20); Calcium 8.4 mg/dL (8.4-10.2); Carbon Dioxide 20 mmol/L (22-30); Chloride 102 mmol/L (98-107); Estimated CRCL calculation 6 ml/min; Estimated Glomerular Filt Rate 6; Glucose 120 mg/dL (65-110); Magnesium 2.3 mg/dL (1.6-2.3); Potassium 5.8 mmol/L (3.4-5.0); Sodium 138 mmol/L (137-145)
[2023-08-15] MEDS: UMECLIDINIUM BROMIDE 62.5 MCG ELLIPTA 1 PUFF INHALATION (13:37)
[2023-08-15 13:46] LABS: Hepatitis B Surface Antigen Negative (Negative)
[2023-08-15] MEDS: ALBUTEROL SULFATE NEB 2.5 MG/3 ML INH INHALATION (13:46)
[2023-08-15 13:50] LABS: NT Pro B Type Natriuretic Pept 19200 pg/mL (19.9-100); Troponin I 0.442 ng/mL (0.000-0.034)
[2023-08-15 14:03] LABS: Hepatitis B Surface Anti Res Negative
[2023-08-15] MEDS: levETIRAcetam 500MG/NACL 100ML 500 MG/100 ML BAG 400 MG IVPB (14:48)
--- NOTE | 2023-08-15 15:09 | PM.CNNEP ---
Assessment and Plan Assessment and plan (1) End stage renal disease: Code(s): N18.6 - End stage renal disease Status: Chronic Assessment and Plan: HD today continue M/W/F dialysis schedule follow electrolytes, volume status, and clearance (2) Acute hypoxemic respiratory failure: Code(s): J96.01 - Acute respiratory failure with hypoxia Status: Acute Assessment and Plan: multifactorial etiology: pulmonary edema/volume overload pneumonia HTN urgency COPD exacerbation (continues to smoke) continue supplemental oxygen steroids and bronchodilators/nebulizer treatments on antibiotics follow respiratory status (3) Pneumonia: Code(s): J18.9 - Pneumonia, unspecified organism Status: Acute Assessment and Plan: as suggested by CXR on antibiotic therapy follow culture data (4) Hypertension: Code(s): I10 - Essential (primary) hypertension Status: Chronic Assessment and Plan: quite elevated on presentation resume home medications along with IV medications PRN poor control at baseline due to compliance issues with BP medications follow trend of hemodynamics (5) Acute exacerbation of chronic obstructive pulmonary disease: Code(s): J44.1 - Chronic obstructive pulmonary disease with (acute) exacerbation Status: Acute Assessment and Plan: see #2 (6) Anemia: Code(s): D64.9 - Anemia, unspecified Status: Chronic Assessment and Plan: related to ESRD Epogen with HD once BP better controlled follow trend of H/H I will continue to follow patient with you while remains hospitalized and make further recommendations during his hospital course. Thank you for allowing me to participate in care this patient. History of Present Illness Reason for Consult Consult date: 08/15/23 Reason for consult: end stage renal disease Chief Complaint Chief complaint: Acute Hypoxic Resp Failure History of Present Illness Narrative: The patient is a 67-year-old male with an extensive past medical history as outlined below who presented to [facility] Emergency room for shortness of breath. Apparently, earlier this morning, the patient woke up with symptoms of shortness of breath. As his shortness of breath seem to be progressively getting worse, he called 911 /EMS for further assistance. On arrival by EMS, the patient was apparently satting 70-80% on room air and was quite tachypneic. Supplemental oxygen was applied and he was given Decadron as well as an nebulizer treatment on transfer to the emergency room. On presentation to the emergency room, he remained hypoxic but with better oxygenation with the supplemental oxygen. He was still tachypneic and his blood pressure was quite elevated in the 200 systolic range. His supplemental oxygen was increased and he was given both IV metoprolol as well as climbing for his significant hypertension. With ongoing supportive therapy, his respiratory status seemed to improve as did his tachypnea and hypertension. Routine blood tests were done which [place] [id number] with a supratherapeutic hemoglobin of 12.9 with a mild lactic acidosis of 2.1. His chemistry showed labs consistent with his known history of end-stage renal disease without any critical electrolyte abnormalities. His chest x-ray showed pulmonary vascular congestion and a possible right lower lobe infiltrate as well. Do the concerns of possible sepsis given his elevated white blood cell count and other laboratory/ imaging findings, appropriate blood cultures were obtained and he was started broad-spectrum IV antibiotic therapy. As [facility] does not have dialysis capabilities, he was transferred to [facility] for further evaluation and therapy. Upon further questioning the patient, he does report missing some dialysis
[2023-08-15] MEDS: ASPIRIN 81 MG ENTERIC TABLET PO (15:41)
[2023-08-15] MEDS: ATORVASTATIN 40 MG TABLET PO (15:41)
[2023-08-15] MEDS: DIVALPROEX SODIUM ER 500 MG TAB.24H PO (15:42)
[2023-08-15] MEDS: TAMSULOSIN HCL 0.4 MG CAPSULE PO (15:42)
[2023-08-15] MEDS: CLOPIDOGREL BISULFATE 75 MG TABLET PO (15:57)
[2023-08-15] MEDS: FLUTICASONE/SALMETEROL 45-21 MCG INHALER 1 PUFF 2 PUFF INHALATION (20:04)
[2023-08-15] MEDS: SODIUM BICARBONATE TAB 325 MG TABLET PO (20:07)
[2023-08-15] MEDS: levETIRAcetam 500 MG TABLET PO (20:08)
[2023-08-15] MEDS: FAMOTIDINE 20 MG TABLET PO (20:08)
[2023-08-15] MEDS: NICOTINE (*PBKC) 14 MG PATCH 1 PATCH TRANSDERM (20:09)
[2023-08-15] MEDS: carvediloL 12.5 MG TABLET PO (20:09)
[2023-08-15] MEDS: HEPARIN SODIUM 5,000 UNITS/ML VIAL 5000 UNITS SUB-Q (20:09)
[2023-08-15] MEDS: PIPERACILLIN/TAZ 2.25G/NS 50ML 2.25 GM/50 ML BAG IVPB (20:09)
[2023-08-15 21:59] LABS: Troponin I 0.434 ng/mL (0.000-0.034)
[2023-08-16] VITALS (18 sets, daily range): BP systolic 113–184; BP diastolic 65–96; PULSE 67–95; RESP 18; TEMP 36.2–36.8; O2SAT 93–100
[2023-08-16 05:30] LABS: Basophils Percent Auto 0.3 % (0.2-1.2); Eosinophils Percent Auto 0.1 % (0-4.4); Hematocrit 33.1 % (42.0-52.0); Hemoglobin 10.6 g/dL (14.0-18.0); Immature Granulocyte Absolute 0.04 K/mm3 (0.00-0.031); Immature Granulocyte Percent A 0.3 % (0-0.5); Lymphocytes Absolute Auto 1.41 K/mm3 (0.9-3.2); Lymphocytes Percent Auto 10.5 % (18.3-44.2); Mean Corpuscular Hemoglobin 32.4 pg (26-34); Mean Corpuscular Volume 101.2 fl (80-100); Mean Platelet Volume 10.1 fl (7.4-10.4); Monocytes Absolute Auto 0.9 K/mm3 (0.1-0.6); Monocytes Percent Auto 6.6 % (2.6-8.5); Neutrophils Absolute Auto 11.1 K/mm3 (1.3-6.7); Neutrophils Percent Auto 82.2 % (45.5-73.1); Platelet Count Result 257 k/mm3 (150-375); Red Blood Count 3.27 M/mm3 (4.6-6.20); White Blood Count 13.5 K/mm3 (4.5-10.0)
[2023-08-16 05:41] LABS: Alanine Aminotransferase 22 U/L (6-50); Albumin Level 4.2 g/dL (3.5-5.1); Alkaline Phosphatase 48 U/L (38-126); Anion Gap 18 mmol/L (8-16); Aspartate Amino Transferase 27 U/L (17-59); Bilirubin,Total 0.6 mg/dL (0.2-1.3); Blood Urea Nitrogen 42 mg/dL (9-20); Calcium 8.9 mg/dL (8.4-10.2); Carbon Dioxide 24 mmol/L (22-30); Chloride 98 mmol/L (98-107); Estimated CRCL calculation 8 ml/min; Estimated Glomerular Filt Rate 10; Glucose 160 mg/dL (65-110); Magnesium 2.3 mg/dL (1.6-2.3); Phosphorus 5.5 mg/dL (2.5-4.5); Sodium 140 mmol/L (137-145)
[2023-08-16] MEDS: ACETAMINOPHEN 325 MG TABLET 650 MG PO ×3 (09:42→20:35)
[2023-08-16] MEDS: NIFEdipine 30 MG TAB.ER.24 60 MG PO (09:43)
[2023-08-16] MEDS: CLOPIDOGREL BISULFATE 75 MG TABLET PO (09:43)
[2023-08-16] MEDS: ATORVASTATIN 40 MG TABLET PO (09:43)
[2023-08-16] MEDS: predniSONE 20 MG TABLET 60 MG PO (09:44)
[2023-08-16] MEDS: DIVALPROEX SODIUM ER 500 MG TAB.24H PO (09:44)
[2023-08-16] MEDS: SODIUM BICARBONATE TAB 325 MG TABLET PO ×2 (09:44→16:00)
[2023-08-16] MEDS: carvediloL 12.5 MG TABLET PO ×2 (09:44→20:18)
[2023-08-16] MEDS: LOSARTAN POTASSIUM 100 MG TABLET PO (09:44)
[2023-08-16] MEDS: TAMSULOSIN HCL 0.4 MG CAPSULE PO (09:44)
[2023-08-16] MEDS: ASPIRIN 81 MG ENTERIC TABLET PO (09:44)
[2023-08-16] MEDS: ISOSORBIDE MONONITRATE 30 MG TAB.ER.24H PO (09:44)
[2023-08-16] MEDS: levETIRAcetam 500 MG TABLET PO ×2 (09:44→20:19)
[2023-08-16] MEDS: NICOTINE (*PBKC) 14 MG PATCH 1 PATCH TRANSDERM (09:45)
[2023-08-16] MEDS: HEPARIN SODIUM 5,000 UNITS/ML VIAL 5000 UNITS SUB-Q ×2 (09:45→20:19)
[2023-08-16] MEDS: hydrALAZINE HCL 20 MG/ML VIAL 10 MG IV PUSH (09:47)
[2023-08-16] MEDS: FLUTICASONE/SALMETEROL 45-21 MCG INHALER 1 PUFF 2 PUFF INHALATION ×2 (10:03→21:11)
[2023-08-16] MEDS: UMECLIDINIUM BROMIDE 62.5 MCG ELLIPTA 1 PUFF INHALATION (10:03)
--- NOTE | 2023-08-16 12:33 | PM.IMPN ---
Progress Note: A&P Assessment and Plan (1) Acute hypoxemic respiratory failure: Code(s): J96.01 - Acute respiratory failure with hypoxia Status: Acute (2) Pneumonia: Code(s): J18.9 - Pneumonia, unspecified organism Status: Acute (3) Lung infiltrate: Code(s): R91.8 - Other nonspecific abnormal finding of lung field Status: Acute (4) Hypertension: Qualifiers: Hypertension type: unspecified secondary hypertension Qualified Code(s): I15.9 - Secondary hypertension, unspecified Code(s): I10 - Essential (primary) hypertension Status: Acute (5) Acute urinary retention: Code(s): R33.8 - Other retention of urine Status: Acute (6) ESRD (end stage renal disease) on dialysis: Code(s): N18.6 - End stage renal disease; Z99.2 - Dependence on renal dialysis Status: Acute (7) Non compliance w medication regimen: Code(s): Z91.148 - Patient's other noncompliance with medication regimen for other reason Status: Acute (8) Anemia: Code(s): D64.9 - Anemia, unspecified Status: Chronic (9) Acute exacerbation of chronic obstructive pulmonary disease: Code(s): J44.1 - Chronic obstructive pulmonary disease with (acute) exacerbation Status: Acute Plan 1. Acute hypoxic respiratory failure Multifactorial- includes pulmonary edema and pneumonia Ct supplemental o2 08/16: supplemental o2 needs decreasing. now 2L O2 98%. 2. Acute pulmonary edema confirm on CXR and f/u bnp Most likely related to missing dialysis. Could also include hypertensive emergency Appreciate nephrology consultation with Dr. Larry, pt will get dialysis today when available 08/16: Pt greatly improved with dialysis yesterday 3. Hypertensive emergency PT on coreg 12.5 mg bid, clonidine 0.1 mg tid (should be prn), isosorbide mononitrate 30 mg qd er, 100 mg losartan, nifedipine 60 mg er gave 1 dose 25 mg hydralazine ivp. 10 mg iv hydralazine prn available 08/16: BP still poorly controlled. BP under better control with home medicine regimen. He is on too many BP medications. Likely will need to increase coreg, isosorbide, or nifedipine as three times a day clonidine is too much. F/u assessment of aldosterone/renin ratio, serum testing, for secondary hypertension diagnosis 4. Chest pain likely related to pulmonary edema f/u troponin and EKG Does not appear to be acutely affecting him right now 08/16: not present today. 5. Pneumonia HCAP vs CAP from recent hospitalization f/u covid, rsv, influenza tests need to confirm on labs and CXR, appears ok clinically right now f/u lactic acid as well Can ct zosyn for 7 days, renally dosed Will not bolus pt yet until he can get confirmed dialysis for fluid removal f/u 2 sets of blood cx as well and sputum cx 08/16: Ct tx for PNA for 7 days. Can be discharged on augmentin PO to complete course. 6. COPD was given 1 dose of solumedrol of unknown quantity in the ER and duoneb prn albuterol already on advair diskus and incruse elllipta bid- ct these treatments will give 60 mg prednisone qd for 5 days 08/16: ct steroid course. bs clear bl now 7. Seizure disorder ct keppra 250 mg bid and valproic acid 500 mg er previous EEG reportedly normal in April 202208/15: pt had a witnessed seizure earlier a few hrs ago. I was contacted after the pt was post-ictal. He was given 1 dose of keppra IV 500 mg before dialysis and his keppra was increased to 500 mg bid. The pt appears to be having a lip tremor now, but if he can communicate during these episodes with staff, he is not having a seizure. Ativan prn IVP has been added for breakthrough seizures 08/16: seizure yesterday. keppra increased to 500 mg bid. no reports of seizure today. 8. CKD/ESRD dialysis MWF. Ct sodium bicarbonate (325 mg bid potentially underdosed)- defer to nephrology for this dosing Appreciate nephrology consultation from Dr. Larry 9. Diastolic CHF last echo from 6
--- NOTE | 2023-08-16 13:58 | P.PNNP_ITS ---
Progress Note: A&P Assessment and Plan (1) End stage renal disease: Code(s): N18.6 - End stage renal disease Status: Chronic Assessment and Plan: * HD finished yesterday. * Feels much better today. * continue M/W/F dialysis schedule * Potassium and bicarbonate okay. (2) Acute hypoxemic respiratory failure: Code(s): J96.01 - Acute respiratory failure with hypoxia Status: Acute Assessment and Plan: * multifactorial etiology: * pulmonary edema/volume overload * pneumonia * HTN urgency * COPD exacerbation (continues to smoke) * still on 2LPM O2 * steroids and bronchodilators/nebulizer treatments * on antibiotics * follow respiratory status (3) Pneumonia: Code(s): J18.9 - Pneumonia, unspecified organism Status: Acute Assessment and Plan: * as suggested by CXR * on Zosyn * follow culture data (4) Hypertension: Code(s): I10 - Essential (primary) hypertension Status: Chronic Assessment and Plan: * quite elevated on presentation * Now back on home meds. * Also fluid removed yesterday. * Blood pressure is good last check. (5) Acute exacerbation of chronic obstructive pulmonary disease: Code(s): J44.1 - Chronic obstructive pulmonary disease with (acute) exacerbation Status: Acute Assessment and Plan: * see #2 (6) Anemia: Code(s): D64.9 - Anemia, unspecified Status: Chronic Assessment and Plan: * related to ESRD * Epogen tomorrow as long as blood pressure stays under good control. * follow trend of H/H Subjective Date/time seen: 08/16/23 13:58 Interval history: Patient is alert. He feels better. He has trouble with transportation to dialysis and they did not show up last dialysis which is why he ended up in the hospital. Review of Systems Cardiovascular: Cardiovascular: Reports no additional cardiovascular complaints Respiratory: Respiratory: Reports no additional respiratory complaints Gastrointestinal: Gastrointestinal: Reports no additional gastrointestinal complaints Genitourinary: Genitourinary: Reports no additional male genitourinary complaints Exam Narrative: WDWN in NAD skin no rash head ncat lungs clear cor reg no rub abd BS+ nontender and soft ext no edema. Objective Data Vital Signs Vital Signs: Vital Signs - 24 hr 08/15/23 14:04 08/15/23 14:31 08/15/23 14:31 Temperature 97.8 F Pulse Rate 99 105 H Respiratory Rate 26 H 18 Blood Pressure 210/99 H Pulse Oximetry 99 Oxygen Delivery Oxygen Flow Rate 4 Fraction of Inspired Oxygen 08/15/23 14:41 08/15/23 15:00 08/15/23 15:15 Temperature Pulse Rate 101 H 89 107 H Respiratory Rate Blood Pressure 208/125 H 188/142 H 220/127 H Pulse Oximetry Oxygen Delivery Oxygen Flow Rate Fraction of Inspired Oxygen 08/15/23 15:30 08/15/23 15:45 08/15/23 16:00 Temperature Pulse Rate 104 H 99 96 Respiratory Rate Blood Pressure 189/105 H 128/64 137/79 Pulse Oximetry Oxygen Delivery Oxygen Flow Rate Fractio
--- NOTE | 2023-08-16 13:58 | PM.PNNEP ---
Progress Note: A&P Assessment and Plan (1) End stage renal disease: Code(s): N18.6 - End stage renal disease Status: Chronic Assessment and Plan: HD finished yesterday. Feels much better today. continue M/W/F dialysis schedule Potassium and bicarbonate okay. (2) Acute hypoxemic respiratory failure: Code(s): J96.01 - Acute respiratory failure with hypoxia Status: Acute Assessment and Plan: multifactorial etiology: pulmonary edema/volume overload pneumonia HTN urgency COPD exacerbation (continues to smoke) still on 2LPM O2 steroids and bronchodilators/nebulizer treatments on antibiotics follow respiratory status (3) Pneumonia: Code(s): J18.9 - Pneumonia, unspecified organism Status: Acute Assessment and Plan: as suggested by CXR on Zosyn follow culture data (4) Hypertension: Code(s): I10 - Essential (primary) hypertension Status: Chronic Assessment and Plan: quite elevated on presentation Now back on home meds. Also fluid removed yesterday. Blood pressure is good last check. (5) Acute exacerbation of chronic obstructive pulmonary disease: Code(s): J44.1 - Chronic obstructive pulmonary disease with (acute) exacerbation Status: Acute Assessment and Plan: see #2 (6) Anemia: Code(s): D64.9 - Anemia, unspecified Status: Chronic Assessment and Plan: related to ESRD Epogen tomorrow as long as blood pressure stays under good control. follow trend of H/H Subjective Date/time seen: 08/16/23 13:58 Interval history: Patient is alert. He feels better. He has trouble with transportation to dialysis and they did not show up last dialysis which is why he ended up in the hospital. Review of Systems Cardiovascular: Cardiovascular: Reports no additional cardiovascular complaints Respiratory: Respiratory: Reports no additional respiratory complaints Gastrointestinal: Gastrointestinal: Reports no additional gastrointestinal complaints Genitourinary: Genitourinary: Reports no additional male genitourinary complaints Exam Narrative: WDWN in NAD skin no rash head ncat lungs clear cor reg no rub abd BS+ nontender and soft ext no edema. Objective Data Vital Signs Vital Signs: Vital Signs - 24 hr 08/15/23 14:04 08/15/23 14:31 08/15/23 14:31 Temperature 97.8 F Pulse Rate 99 105 H Respiratory Rate 26 H 18 Blood Pressure 210/99 H Pulse Oximetry 99 Oxygen Delivery Oxygen Flow Rate 4 Fraction of Inspired Oxygen 08/15/23 14:41 08/15/23 15:00 08/15/23 15:15 Temperature Pulse Rate 101 H 89 107 H Respiratory Rate Blood Pressure 208/125 H 188/142 H 220/127 H Pulse Oximetry Oxygen Delivery Oxygen Flow Rate Fraction of Inspired Oxygen 08/15/23 15:30 08/15/23 15:45 08/15/23 16:00 Temperature Pulse Rate 104 H 99 96 Respiratory Rate Blood Pressure 189/105 H 128/64 137/79 Pulse Oximetry Oxygen Delivery Oxygen Flow Rate Fraction of Inspired Oxygen 08/15/23 16:15 08/15/23 16:30 08/15/23 16:45 Temperature Pulse Rate 93 88 75 Respiratory Rate Blood Pressure 109/68 124/71 100/54 L Pulse Oximetry Oxygen Delivery Oxygen Flow Rate Fraction of Inspired Oxygen 08/15/23 17:00 08/15/23 17:15 08/15/23 17:30 Temperature Pulse Rate 81 92 98 Respiratory Rate Blood Pressure 132/77 165/94 H 143/68 H Pulse Oximetry Oxygen Delivery Oxygen Flow Rate Fraction of Inspired Oxygen 08/15/23 17:45 08/15/23 18:00 08/15/23 18:51 Temperature 97.5 F L Pulse Rate 93 93 98 Respiratory Rate 18 Blood Pressure 168/84 H 121/72 139/78 Pulse Oximetry 99 Oxygen Delivery Oxygen Flow Rate Fraction of Inspired Oxygen 08/15/23 16:00 08/15/23 16:00 08/15/23 19:43 Temperature 97.0 F L Pulse Rate 100 100 107 H Respiratory Rate 26 H 18 Blood P
[2023-08-16] MEDS: PIPERACILLIN/TAZ 2.25G/NS 50ML 2.25 GM/50 ML BAG IVPB ×2 (14:59→21:26)
[2023-08-16] MEDS: FAMOTIDINE 20 MG TABLET PO (20:19)
[2023-08-17] VITALS (16 sets, daily range): BP systolic 134–176; BP diastolic 71–95; PULSE 60–84; RESP 18–20; TEMP 35.7–36.6; O2SAT 94–99
[2023-08-17 05:12] LABS: Basophils Percent Auto 0.3 % (0.2-1.2); Eosinophils Percent Auto 0.2 % (0-4.4); Hematocrit 30.2 % (42.0-52.0); Hemoglobin 9.8 g/dL (14.0-18.0); Immature Granulocyte Absolute 0.02 K/mm3 (0.00-0.031); Immature Granulocyte Percent A 0.2 % (0-0.5); Lymphocytes Absolute Auto 1.78 K/mm3 (0.9-3.2); Lymphocytes Percent Auto 16.6 % (18.3-44.2); Mean Corpuscular HGB Conc 32.5 g/dl (32-36); Mean Corpuscular Hemoglobin 32.5 pg (26-34); Mean Platelet Volume 10.3 fl (7.4-10.4); Monocytes Absolute Auto 0.6 K/mm3 (0.1-0.6); Monocytes Percent Auto 5.3 % (2.6-8.5); Neutrophils Absolute Auto 8.3 K/mm3 (1.3-6.7); Neutrophils Percent Auto 77.4 % (45.5-73.1); Platelet Count Result 234 k/mm3 (150-375); Red Blood Count 3.02 M/mm3 (4.6-6.20); Red Cell Distribution Width 13.8 % (11.5-14.5); White Blood Count 10.7 K/mm3 (4.5-10.0)
[2023-08-17 05:25] LABS: Alanine Aminotransferase 16 U/L (6-50); Alkaline Phosphatase 51 U/L (38-126); Anion Gap 18 mmol/L (8-16); Aspartate Amino Transferase 22 U/L (17-59); Bilirubin,Total 0.5 mg/dL (0.2-1.3); Blood Urea Nitrogen 70 mg/dL (9-20); Calcium 8.1 mg/dL (8.4-10.2); Carbon Dioxide 22 mmol/L (22-30); Chloride 93 mmol/L (98-107); Estimated CRCL calculation 6 ml/min; Estimated Glomerular Filt Rate 6; Glucose 112 mg/dL (65-110); Magnesium 2.5 mg/dL (1.6-2.3); Phosphorus 5.2 mg/dL (2.5-4.5); Potassium 4.2 mmol/L (3.4-5.0); Sodium 133 mmol/L (137-145)
[2023-08-17] MEDS: PIPERACILLIN/TAZ 2.25G/NS 50ML 2.25 GM/50 ML BAG IVPB ×2 (05:30→14:44)
[2023-08-17] MEDS: FLUTICASONE/SALMETEROL 45-21 MCG INHALER 1 PUFF 2 PUFF INHALATION ×2 (09:06→20:03)
[2023-08-17] MEDS: UMECLIDINIUM BROMIDE 62.5 MCG ELLIPTA 1 PUFF INHALATION (09:06)
[2023-08-17] MEDS: predniSONE 20 MG TABLET 60 MG PO (09:15)
[2023-08-17] MEDS: CLOPIDOGREL BISULFATE 75 MG TABLET PO (09:15)
[2023-08-17] MEDS: carvediloL 12.5 MG TABLET PO ×2 (09:15→20:45)
[2023-08-17] MEDS: DIVALPROEX SODIUM ER 500 MG TAB.24H PO (09:16)
[2023-08-17] MEDS: SODIUM BICARBONATE TAB 325 MG TABLET PO ×2 (09:16→18:25)
[2023-08-17] MEDS: levETIRAcetam 500 MG TABLET PO ×2 (09:16→20:45)
[2023-08-17] MEDS: LOSARTAN POTASSIUM 100 MG TABLET PO (09:16)
[2023-08-17] MEDS: TAMSULOSIN HCL 0.4 MG CAPSULE PO (09:16)
[2023-08-17] MEDS: ATORVASTATIN 40 MG TABLET PO (09:16)
[2023-08-17] MEDS: ISOSORBIDE MONONITRATE 30 MG TAB.ER.24H PO (09:16)
[2023-08-17] MEDS: ASPIRIN 81 MG ENTERIC TABLET PO (09:16)
[2023-08-17] MEDS: NIFEdipine 30 MG TAB.ER.24 60 MG PO (09:16)
[2023-08-17] MEDS: HEPARIN SODIUM 5,000 UNITS/ML VIAL 5000 UNITS SUB-Q ×2 (09:17→20:45)
[2023-08-17] MEDS: NICOTINE (*PBKC) 14 MG PATCH 1 PATCH TRANSDERM (09:17)
--- NOTE | 2023-08-17 13:12 | P.PNNP_ITS ---
Progress Note: A&P Assessment and Plan (1) End stage renal disease: Code(s): N18.6 - End stage renal disease Status: Chronic Assessment and Plan: * HD due tomorrow. * Feels much better today. * Still on some oxygen. * Potassium and bicarbonate okay. * Will remove more fluid tomorrow. (2) Acute hypoxemic respiratory failure: Code(s): J96.01 - Acute respiratory failure with hypoxia Status: Acute Assessment and Plan: * multifactorial etiology: * pulmonary edema/volume overload * pneumonia * HTN urgency * COPD exacerbation (continues to smoke) * still on 2LPM O2 * steroids and bronchodilators/nebulizer treatments * on antibiotics * Remove more fluid tomorrow as tolerated. (3) Pneumonia: Code(s): J18.9 - Pneumonia, unspecified organism Status: Acute Assessment and Plan: * as suggested by CXR * on Zosyn * follow culture data (4) Hypertension: Code(s): I10 - Essential (primary) hypertension Status: Chronic Assessment and Plan: * Currently systolic running between 110 and 150. Occasionally up to 170. * Now back on home meds. * Also fluid removed yesterday. * Blood pressure is good last check. * Patient is concerned that he is not taking the right medications at home because he has been to so many different hospitals. He is asking for home health to go over his medications at home. I referred him to the hospitalist for that. Another option is for him to take his discharge medicine list and all of his medicine bottles to the dialysis unit and they can go over his medications and reconcile with their medication list as well. He would need to do this anyway. (5) Acute exacerbation of chronic obstructive pulmonary disease: Code(s): J44.1 - Chronic obstructive pulmonary disease with (acute) exacerbation Status: Acute Assessment and Plan: * see #2 (6) Anemia: Code(s): D64.9 - Anemia, unspecified Status: Chronic Assessment and Plan: * Hemoglobin 9.8. * Epogen tomorrow With his dialysis * check another CBC tomorrow Subjective Date/time seen: 08/17/23 13:12 Interval history: same is feeling better. He is still on some oxygen. He denies shortness of breath. No swelling Exam Narrative: WDWN in NAD skin no rash head ncat lungs clear bilaterally cor reg no rub abd BS+ nontender and soft ext no edema. Objective Data Vital Signs Vital Signs: Vital Signs - 24 hr 08/16/23 16:00 08/16/23 16:00 08/16/23 19:52 Temperature 98.3 F 97.7 F Pulse Rate 76 67 72 Respiratory Rate 18 18 Blood Pressure 133/70 116/65 Pulse Oximetry 94 93 Oxygen Delivery Oxygen Flow Rate 08/16/23 20:18 08/16/23 20:00 08/16/23 21:14 Temperature Pulse Rate 73 Respiratory Rate Blood Pressure Pulse Oximetry 93 93 Oxygen Delivery Room Air Room Air Oxygen Flow Rate 08/17/23 00:00 08/16/23 20:00 08/17/23 00:00 Temperature 97.1 F L Pulse Rate 60 74 61 Respiratory Rate 18 Blood Pressure 145/78 H Pulse Oximetry 98 Oxygen Delivery Oxygen Flow Rate
--- NOTE | 2023-08-17 13:12 | PM.PNNEP ---
Progress Note: A&P Assessment and Plan (1) End stage renal disease: Code(s): N18.6 - End stage renal disease Status: Chronic Assessment and Plan: HD due tomorrow. Feels much better today. Still on some oxygen. Potassium and bicarbonate okay. Will remove more fluid tomorrow. (2) Acute hypoxemic respiratory failure: Code(s): J96.01 - Acute respiratory failure with hypoxia Status: Acute Assessment and Plan: multifactorial etiology: pulmonary edema/volume overload pneumonia HTN urgency COPD exacerbation (continues to smoke) still on 2LPM O2 steroids and bronchodilators/nebulizer treatments on antibiotics Remove more fluid tomorrow as tolerated. (3) Pneumonia: Code(s): J18.9 - Pneumonia, unspecified organism Status: Acute Assessment and Plan: as suggested by CXR on Zosyn follow culture data (4) Hypertension: Code(s): I10 - Essential (primary) hypertension Status: Chronic Assessment and Plan: Currently systolic running between 110 and 150. Occasionally up to 170. Now back on home meds. Also fluid removed yesterday. Blood pressure is good last check. Patient is concerned that he is not taking the right medications at home because he has been to so many different hospitals. He is asking for home health to go over his medications at home. I referred him to the hospitalist for that. Another option is for him to take his discharge medicine list and all of his medicine bottles to the dialysis unit and they can go over his medications and reconcile with their medication list as well. He would need to do this anyway. (5) Acute exacerbation of chronic obstructive pulmonary disease: Code(s): J44.1 - Chronic obstructive pulmonary disease with (acute) exacerbation Status: Acute Assessment and Plan: see #2 (6) Anemia: Code(s): D64.9 - Anemia, unspecified Status: Chronic Assessment and Plan: Hemoglobin 9.8. Epogen tomorrow With his dialysis check another CBC tomorrow Subjective Date/time seen: 08/17/23 13:12 Interval history: same is feeling better. He is still on some oxygen. He denies shortness of breath. No swelling Exam Narrative: WDWN in NAD skin no rash head ncat lungs clear bilaterally cor reg no rub abd BS+ nontender and soft ext no edema. Objective Data Vital Signs Vital Signs: Vital Signs - 24 hr 08/16/23 16:00 08/16/23 16:00 08/16/23 19:52 Temperature 98.3 F 97.7 F Pulse Rate 76 67 72 Respiratory Rate 18 18 Blood Pressure 133/70 116/65 Pulse Oximetry 94 93 Oxygen Delivery Oxygen Flow Rate 08/16/23 20:18 08/16/23 20:00 08/16/23 21:14 Temperature Pulse Rate 73 Respiratory Rate Blood Pressure Pulse Oximetry 93 93 Oxygen Delivery Room Air Room Air Oxygen Flow Rate 08/17/23 00:00 08/16/23 20:00 08/17/23 00:00 Temperature 97.1 F L Pulse Rate 60 74 61 Respiratory Rate 18 Blood Pressure 145/78 H Pulse Oximetry 98 Oxygen Delivery Oxygen Flow Rate 08/17/23 04:00 08/17/23 05:35 08/17/23 07:32 Temperature 97.8 F 98 F Pulse Rate 60 68 77 Respiratory Rate 18 20 Blood Pressure 172/95 H 176/82 H Pulse Oximetry 98 97 Oxygen Delivery Oxygen Flow Rate 08/17/23 09:11 08/17/23 09:15 08/17/23 08:00 Temperature Pulse Rate 71 Respiratory Rate Blood Pressure Pulse Oximetry 97 Oxygen Delivery Nasal Cannula Room Air Oxygen Flow Rate 3 08/17/23 11:36 Temperature 96.2 F L Pulse Rate 79 Respiratory Rate 18 Blood Pressure 141/85 H Pulse Oximetry 99 Oxygen Delivery Oxygen Flow Rate Intake/Output Intake/Output: Intake & Output 08/14/23 08/15/23 08/16/23 08/17/23 23:59 23:59 23:59 23:59 Intake Total 50 1882 1010 Output Total 3500 200 100 Balance -3450 1682 910 Meds/Results Medications: Active Medications
[2023-08-17] MEDS: ACETAMINOPHEN 325 MG TABLET 650 MG PO ×2 (14:43→23:53)
--- NOTE | 2023-08-17 16:31 | PM.IMPN ---
Progress Note: A&P Assessment and Plan (1) Acute hypoxemic respiratory failure: Code(s): J96.01 - Acute respiratory failure with hypoxia Status: Acute (2) Pneumonia: Code(s): J18.9 - Pneumonia, unspecified organism Status: Acute (3) Lung infiltrate: Code(s): R91.8 - Other nonspecific abnormal finding of lung field Status: Acute (4) Hypertension: Qualifiers: Hypertension type: unspecified secondary hypertension Qualified Code(s): I15.9 - Secondary hypertension, unspecified Code(s): I10 - Essential (primary) hypertension Status: Acute (5) Acute urinary retention: Code(s): R33.8 - Other retention of urine Status: Acute (6) ESRD (end stage renal disease) on dialysis: Code(s): N18.6 - End stage renal disease; Z99.2 - Dependence on renal dialysis Status: Acute (7) Non compliance w medication regimen: Code(s): Z91.148 - Patient's other noncompliance with medication regimen for other reason Status: Acute (8) Anemia: Code(s): D64.9 - Anemia, unspecified Status: Chronic (9) Acute exacerbation of chronic obstructive pulmonary disease: Code(s): J44.1 - Chronic obstructive pulmonary disease with (acute) exacerbation Status: Acute Plan 1. Acute hypoxic respiratory failure Multifactorial- includes pulmonary edema and pneumonia Ct supplemental o2 08/16: supplemental o2 needs decreasing. now 2L O2 98%. 08/17: resolved. on room air. 2. Acute pulmonary edema confirm on CXR and f/u bnp Most likely related to missing dialysis. Could also include hypertensive emergency Appreciate nephrology consultation with Dr. Larry, pt will get dialysis today when available 08/16: Pt greatly improved with dialysis yesterday 08/17: most likely resolved. on room air now. Dialysis tomorrow, with as much fluid removal as possible. 3. Hypertensive emergency PT on coreg 12.5 mg bid, clonidine 0.1 mg tid (should be prn), isosorbide mononitrate 30 mg qd er, 100 mg losartan, nifedipine 60 mg er gave 1 dose 25 mg hydralazine ivp. 10 mg iv hydralazine prn available 08/16: BP still poorly controlled. BP under better control with home medicine regimen. He is on too many BP medications. Likely will need to increase coreg, isosorbide, or nifedipine as three times a day clonidine is too much. F/u assessment of aldosterone/renin ratio, serum testing, for secondary hypertension diagnosis 08/17: aldosterone/renin pending. Pt's bp under much better control. losartan split to bid dosing 50 mg bid to cover morning hypertension. Plan to dc pt off clonidine, only on nifedipine, losartan, isosorbide, and coreg. 4. Chest pain likely related to pulmonary edema f/u troponin and EKG Does not appear to be acutely affecting him right now 08/16: not present today. 5. Pneumonia HCAP vs CAP from recent hospitalization f/u covid, rsv, influenza tests need to confirm on labs and CXR, appears ok clinically right now f/u lactic acid as well Can ct zosyn for 7 days, renally dosed Will not bolus pt yet until he can get confirmed dialysis for fluid removal f/u 2 sets of blood cx as well and sputum cx 08/16: Ct tx for PNA for 7 days. Can be discharged on augmentin PO to complete course. 08/17: complete course of abx on augmentin until 08/21. 6. COPD was given 1 dose of solumedrol of unknown quantity in the ER and duoneb prn albuterol already on advair diskus and incruse elllipta bid- ct these treatments will give 60 mg prednisone qd for 5 days 08/16: ct steroid course. bs clear bl now 08/17: complete course of prednisone until 08/21 for copd exacerbation 7. Seizure disorder ct keppra 250 mg bid and valproic acid 500 mg er previous EEG reportedly normal in April 202208/15: pt had a witnessed seizure earlier a few hrs ago. I was contacted after the pt was post-ictal. He was given 1 dose of keppra IV 500 mg before dialysis and his keppra was increased to 500 mg bid. The pt
[2023-08-17] MEDS: AMOXICILLIN/CLAVULANATE K 500-125 MG TAB 1 TABLET PO (18:25)
[2023-08-17] MEDS: FAMOTIDINE 20 MG TABLET PO (20:44)
[2023-08-17] MEDS: LOSARTAN POTASSIUM 50 MG TABLET PO (20:44)
[2023-08-17] MEDS: hydrALAZINE HCL 20 MG/ML VIAL 10 MG IV PUSH (23:53)
[2023-08-18] VITALS (30 sets, daily range): BP systolic 107–203; BP diastolic 66–116; PULSE 61–92; RESP 16–20; TEMP 36–37.2; O2SAT 94–100
[2023-08-18 04:45] LABS: Basophils Percent Auto 0.1 % (0.2-1.2); Hematocrit 31.1 % (42.0-52.0); Hemoglobin 10.3 g/dL (14.0-18.0); Immature Granulocyte Absolute 0.05 K/mm3 (0.00-0.031); Immature Granulocyte Percent A 0.4 % (0-0.5); Lymphocytes Absolute Auto 1.46 K/mm3 (0.9-3.2); Lymphocytes Percent Auto 13.1 % (18.3-44.2); Mean Corpuscular HGB Conc 33.1 g/dl (32-36); Mean Corpuscular Hemoglobin 32.5 pg (26-34); Mean Corpuscular Volume 98.1 fl (80-100); Mean Platelet Volume 10.5 fl (7.4-10.4); Monocytes Absolute Auto 0.5 K/mm3 (0.1-0.6); Monocytes Percent Auto 4.5 % (2.6-8.5); Neutrophils Absolute Auto 9.2 K/mm3 (1.3-6.7); Neutrophils Percent Auto 81.9 % (45.5-73.1); Platelet Count Result 257 k/mm3 (150-375); Red Blood Count 3.17 M/mm3 (4.6-6.20); Red Cell Distribution Width 13.5 % (11.5-14.5); White Blood Count 11.2 K/mm3 (4.5-10.0)
[2023-08-18 05:05] LABS: Alanine Aminotransferase 16 U/L (6-50); Alkaline Phosphatase 64 U/L (38-126); Anion Gap 20 mmol/L (8-16); Aspartate Amino Transferase 21 U/L (17-59); Bilirubin,Total 0.5 mg/dL (0.2-1.3); Blood Urea Nitrogen 83 mg/dL (9-20); Calcium 8.3 mg/dL (8.4-10.2); Carbon Dioxide 21 mmol/L (22-30); Chloride 93 mmol/L (98-107); Estimated CRCL calculation 6 ml/min; Estimated Glomerular Filt Rate 5; Glucose 104 mg/dL (65-110); Magnesium 2.4 mg/dL (1.6-2.3); Phosphorus 6.6 mg/dL (2.5-4.5); Potassium 4.3 mmol/L (3.4-5.0); Sodium 134 mmol/L (137-145)
--- NOTE | 2023-08-18 05:24 | PC.NURSE ---
This patient, Sachin Donahue, was transferred to [[id number] ] on 08/18/23 at 0508. Personal belongings sent with patient. Report given to [ [place] FERNANDEZ]. Appropriate documentation sent with patient.
[2023-08-18] MEDS: UMECLIDINIUM BROMIDE 62.5 MCG ELLIPTA 1 PUFF INHALATION (07:15)
[2023-08-18] MEDS: FLUTICASONE/SALMETEROL 45-21 MCG INHALER 1 PUFF 2 PUFF INHALATION (07:15)
--- NOTE | 2023-08-18 08:39 | PCDIET ---
Pt to dialysis via bed.
--- NOTE | 2023-08-18 10:40 | PM.PNNEP ---
Progress Note: A&P Assessment and Plan (1) End stage renal disease: Code(s): N18.6 - End stage renal disease Status: Chronic Assessment and Plan: HD today continue M/W/F outpatient dialysis schedule follow electrolytes, volume status, and clearance (2) Acute hypoxemic respiratory failure: Code(s): J96.01 - Acute respiratory failure with hypoxia Status: Acute Assessment and Plan: multifactorial etiology: pulmonary edema/volume overload pneumonia HTN urgency COPD exacerbation (continues to smoke) off oxygen on steroids and antibiotics follow respiratory status (3) Pneumonia: Code(s): J18.9 - Pneumonia, unspecified organism Status: Acute Assessment and Plan: as suggested by CXR on oral antibiotics follow culture data (4) Hypertension: Code(s): I10 - Essential (primary) hypertension Status: Chronic Assessment and Plan: doing significantly better back on home meds. suspect fluid removal with dialysis helped as well follow trend of hemodynamics (5) Acute exacerbation of chronic obstructive pulmonary disease: Code(s): J44.1 - Chronic obstructive pulmonary disease with (acute) exacerbation Status: Acute Assessment and Plan: see #2 (6) Anemia: Code(s): D64.9 - Anemia, unspecified Status: Chronic Assessment and Plan: due to ESRD Epogen with HD follow H/H Not opposed to discharge from renal perspective if otherwise medically stable Will continue to follow. Subjective Date/time seen: 08/18/23 10:40 Interval history: Follow-up for end stage renal disease on hemodialysis. Tolerating hemodialysis treatment at the time of my visit (seen on HD at 10:30AM); breathing/respiratory status seems stable if not significantly better; no apparent distress noted. Exam Narrative: General: WD/WN male in NAD Heart: normal S1 and S2; no rub Lungs: coarse breath sounds throughout Abdomen: soft, nontender, nondistended, positive bowel sounds Extremities: no cyanosis or clubbing; no edema Skin: warm and dry Objective Data Vital Signs Vital Signs: Vital Signs Temp Pulse Resp BP Pulse Ox O2 Del Method O2 Flow Rate 08/18/23 08:00 Room Air 08/18/23 08:20 Room Air 08/18/23 07:15 76 18 08/18/23 07:15 97 08/18/23 08:10 Room Air 08/18/23 08:00 98.0 F 73 16 180/99 H 95 08/18/23 07:15 76 18 97 Room Air 08/18/23 06:15 97.6 F 70 20 152/90 H 97 08/18/23 04:00 72 08/18/23 04:00 Room Air 08/18/23 03:40 96.8 F L 72 20 154/81 H 98 08/18/23 00:00 69 08/17/23 20:00 76 08/18/23 01:08 146/82 H 08/18/23 00:24 100 Nasal Cannula 1 08/17/23 20:00 94 Nasal Cannula 2 08/18/23 00:00 97.6 F 69 20 177/86 H 100 08/17/23 20:30 73 94 Room Air 08/17/23 20:45 68 08/17/23 20:36 97.5 F L 73 20 167/90 H 94 08/17/23 20:07 74 20 08/17/23 16:00 64 08/17/23 15:54 96.7 F L 68 20 134/71 97 Intake/Output Intake/Output: Intake & Output 08/15/23 08/16/23 08/17/23 08/18/23 23:59 23:59 23:59 23:59 Intake Total 50 1882 2210 1130 Output Total 3500 200 670 800 Balance -3450 1682 1540 330 Meds/Results Medications: Active Medications Generic Name Dose Route Start Last Admin Trade Name Freq PRN Reason Stop Dose Admin Acetaminophen 650 mg 08/15/23 11:52 08/17/23 23:53 Acetaminophen 325 Mg Tablet PO 650 mg Q4H PRN Administration Mild Pain (1-3) or Fever Albuterol 2.5 mg 08/15/23 13:02 08/15/23 13:46 Albuterol Sulfate Neb 2.5 Mg/3 Ml Inh INHALATION 2.5 mg Q6HRT PRN Administration Shortness Of Breath Amoxicillin/Clavulanate Potassium 1 tablet 08/17/23 18:00 08/17/23 18:25 Amoxicillin/Clavulanate K 500-125 Mg Tab PO 1 tablet Q24H DRAGAN Administration Aspirin 81
--- NOTE | 2023-08-18 10:40 | P.PNNP_ITS ---
Progress Note: A&P Assessment and Plan (1) End stage renal disease: Code(s): N18.6 - End stage renal disease Status: Chronic Assessment and Plan: * HD today * continue M/W/F outpatient dialysis schedule * follow electrolytes, volume status, and clearance (2) Acute hypoxemic respiratory failure: Code(s): J96.01 - Acute respiratory failure with hypoxia Status: Acute Assessment and Plan: * multifactorial etiology: * pulmonary edema/volume overload * pneumonia * HTN urgency * COPD exacerbation (continues to smoke) * off oxygen * on steroids and antibiotics * follow respiratory status (3) Pneumonia: Code(s): J18.9 - Pneumonia, unspecified organism Status: Acute Assessment and Plan: * as suggested by CXR * on oral antibiotics * follow culture data (4) Hypertension: Code(s): I10 - Essential (primary) hypertension Status: Chronic Assessment and Plan: * doing significantly better * back on home meds. * suspect fluid removal with dialysis helped as well * follow trend of hemodynamics (5) Acute exacerbation of chronic obstructive pulmonary disease: Code(s): J44.1 - Chronic obstructive pulmonary disease with (acute) exacerbation Status: Acute Assessment and Plan: * see #2 (6) Anemia: Code(s): D64.9 - Anemia, unspecified Status: Chronic Assessment and Plan: * due to ESRD * Epogen with HD * follow H/H Not opposed to discharge from renal perspective if otherwise medically stable Will continue to follow. Subjective Date/time seen: 08/18/23 10:40 Interval history: Follow-up for end stage renal disease on hemodialysis. Tolerating hemodialysis treatment at the time of my visit (seen on HD at 10:30AM); breathing/respiratory status seems stable if not significantly better; no apparent distress noted. Exam Narrative: General: WD/WN male in NAD Heart: normal S1 and S2; no rub Lungs: coarse breath sounds throughout Abdomen: soft, nontender, nondistended, positive bowel sounds Extremities: no cyanosis or clubbing; no edema Skin: warm and dry Objective Data Vital Signs Vital Signs: Vital Signs Temp Pulse Resp BP Pulse Ox O2 Del Method O2 Flow Rate 08/18/23 08:00 Room Air 08/18/23 08:20 Room Air 08/18/23 07:15 76 18 08/18/23 07:15 97 08/18/23 08:10 Room Air 08/18/23 08:00 98.0 F 73 16 180/99 H 95 08/18/23 07:15 76 18 97 Room Air 08/18/23 06:15 97.6 F 70 20 152/90 H 97 08/18/23 04:00 72 08/18/23 04:00 Room Air 08/18/23 03:40 96.8 F L 72 20 154/81 H 98 08/18/23 00:00 69 08/17/23 20:00 76 08/18/23 01:08 146/82 H 08/18/23 00:24 100 Nasal Cannula 1 08/17/23 20:00 94 Nasal Cannula 2 08/18/23 00:00 97.6 F 69 20 177/86 H 100 08/17/23 20:30 73 94 Room Air 08/17/23 20:45 68 08/17/23 20:36 97.5 F L 73 20 167/90 H 94 08/17/23 20:07 74 20 08/17/23 16:00 64 08/17/23 15:54 96.7 F L 68 20 134/71 97 Intake/Output Intake/Output: Intak
[2023-08-18] MEDS: EPOETIN ALFA-EPBX 10,000 UNITS/ML VIAL 10000 UNITS IV PUSH (11:11)
[2023-08-18] MEDS: NIFEdipine 30 MG TAB.ER.24 60 MG PO (12:44)
[2023-08-18] MEDS: LOSARTAN POTASSIUM 50 MG TABLET PO (12:45)
[2023-08-18] MEDS: levETIRAcetam 500 MG TABLET PO (12:45)
[2023-08-18] MEDS: TAMSULOSIN HCL 0.4 MG CAPSULE PO (12:45)
[2023-08-18] MEDS: SODIUM BICARBONATE TAB 325 MG TABLET PO ×2 (12:46→17:23)
[2023-08-18] MEDS: ASPIRIN 81 MG ENTERIC TABLET PO (12:46)
[2023-08-18] MEDS: CLOPIDOGREL BISULFATE 75 MG TABLET PO (12:46)
[2023-08-18] MEDS: BISACODYL 5 MG TABLET EC PO (12:46)
[2023-08-18] MEDS: carvediloL 12.5 MG TABLET PO (12:47)
[2023-08-18] MEDS: DIVALPROEX SODIUM ER 500 MG TAB.24H PO (12:47)
[2023-08-18] MEDS: ISOSORBIDE MONONITRATE 30 MG TAB.ER.24H PO (12:47)
[2023-08-18] MEDS: NICOTINE (*PBKC) 14 MG PATCH 1 PATCH TRANSDERM (12:47)
[2023-08-18] MEDS: ATORVASTATIN 40 MG TABLET PO (12:47)
[2023-08-18] MEDS: HEPARIN SODIUM 5,000 UNITS/ML VIAL 5000 UNITS SUB-Q (12:47)
[2023-08-18] MEDS: predniSONE 20 MG TABLET 60 MG PO (12:47)
--- NOTE | 2023-08-18 17:02 | PM.DS ---
DS: Admitting Diagnosis Discharge Date 08/18/23 Admitting Diagnosis acute hypoxic resp. failure DS: Discharge Diagnosis Discharge Diagnosis Plan 1. Acute hypoxic respiratory failure Multifactorial- includes pulmonary edema and pneumonia Ct supplemental o2 08/16: supplemental o2 needs decreasing. now 2L O2 98%. 08/17: resolved. on room air. 2. Acute pulmonary edema confirm on CXR and f/u bnp Most likely related to missing dialysis. Could also include hypertensive emergency Appreciate nephrology consultation with Dr. Larry, pt will get dialysis today when available 08/16: Pt greatly improved with dialysis yesterday 08/17: most likely resolved. on room air now. Dialysis tomorrow, with as much fluid removal as possible. 3. Hypertensive emergency PT on coreg 12.5 mg bid, clonidine 0.1 mg tid (should be prn), isosorbide mononitrate 30 mg qd er, 100 mg losartan, nifedipine 60 mg er gave 1 dose 25 mg hydralazine ivp. 10 mg iv hydralazine prn available 08/16: BP still poorly controlled. BP under better control with home medicine regimen. He is on too many BP medications. Likely will need to increase coreg, isosorbide, or nifedipine as three times a day clonidine is too much. F/u assessment of aldosterone/renin ratio, serum testing, for secondary hypertension diagnosis 08/17: aldosterone/renin pending. Pt's bp under much better control. losartan split to bid dosing 50 mg bid to cover morning hypertension. Plan to dc pt off clonidine, only on nifedipine, losartan, isosorbide, and coreg. 4. Chest pain likely related to pulmonary edema f/u troponin and EKG Does not appear to be acutely affecting him right now 08/16: not present today. 5. Pneumonia HCAP vs CAP from recent hospitalization f/u covid, rsv, influenza tests need to confirm on labs and CXR, appears ok clinically right now f/u lactic acid as well Can ct zosyn for 7 days, renally dosed Will not bolus pt yet until he can get confirmed dialysis for fluid removal f/u 2 sets of blood cx as well and sputum cx 08/16: Ct tx for PNA for 7 days. Can be discharged on augmentin PO to complete course. 08/17: complete course of abx on augmentin until 08/21. 6. COPD was given 1 dose of solumedrol of unknown quantity in the ER and duoneb prn albuterol already on advair diskus and incruse elllipta bid- ct these treatments will give 60 mg prednisone qd for 5 days 08/16: ct steroid course. bs clear bl now 08/17: complete course of prednisone until 08/21 for copd exacerbation 7. Seizure disorder ct keppra 250 mg bid and valproic acid 500 mg er previous EEG reportedly normal in April 202208/15: pt had a witnessed seizure earlier a few hrs ago. I was contacted after the pt was post-ictal. He was given 1 dose of keppra IV 500 mg before dialysis and his keppra was increased to 500 mg bid. The pt appears to be having a lip tremor now, but if he can communicate during these episodes with staff, he is not having a seizure. Ativan prn IVP has been added for breakthrough seizures 08/16: seizure yesterday. keppra increased to 500 mg bid. no reports of seizure today. 8. CKD/ESRD dialysis MWF. Ct sodium bicarbonate (325 mg bid potentially underdosed)- defer to nephrology for this dosing Appreciate nephrology consultation from Dr. Larry 9. Diastolic CHF last echo from 03/06/23 moderate LVH LVEF 60-65% grade 1 diastolic dysfunction LAE RV normal 10. Vasculopathy, PAD ct asa, plavix, lipitor DVT prophylaxis with heparin GI prophylaxis-pt is on famotidine Full code inpt/tele, can be discharged out of IMU as long as IV bp meds can be given on a tele floor About 45 min spent doing this evaluation today DS: Summary Hospital Course Reason for hospitalization: acute hypoxic resp. failure Hospital Course: see above Status at Discharge Cognitive/behavioral status at discharge: Good Overall status at discharge: patient is back to baseline Time Spent with Patient Time attestation: Total time spent providing
[2023-08-18] MEDS: AMOXICILLIN/CLAVULANATE K 500-125 MG TAB 1 TABLET PO (17:23)
[2023-08-20 13:54] LABS: Renin 5.55 ng/mL/h (0.25-5.82)
--- NOTE | 2023-08-21 11:22 | PC.NURSE ---
patient called from home . States that he has been having diarrhea since discharge. patient also states having trouble with meds today. I talked with Rosita in the hospitalist office. She is going to discuss with Dr. Meyer and advise patient on what to do.
== END 2023-08-18 18:10 | disposition home or self-care (01) | DRG 194 ==
LOC: ANHIMU 18:26 → ANH3MEDSUR 08-18 05:08
PROVIDERS: Internal Medicine Nephrology; Admitting Provider Internal Medicine; PCP Nurse Practitioner; Visit Provider Internal Medicine
DX: I13.2 Hypertensive heart and chronic kidney disease with heart failure and with stage 5 chronic kidney disease, or end stage renal disease (principal); J18.9 Pneumonia, unspecified organism; I50.32 Chronic diastolic (congestive) heart failure; F17.210 Nicotine dependence, cigarettes, uncomplicated; N18.6 End stage renal disease; Z99.2 Dependence on renal dialysis; J43.9 Emphysema, unspecified; Z95.5 Presence of coronary angioplasty implant and graft; Z95.820 Peripheral vascular angioplasty status with implants and grafts; N40.0 Benign prostatic hyperplasia without lower urinary tract symptoms; Z86.73 Personal history of transient ischemic attack (TIA), and cerebral infarction without residual deficits; K21.9 Gastro-esophageal reflux disease without esophagitis; Z95.0 Presence of cardiac pacemaker; I25.10 Atherosclerotic heart disease of native coronary artery without angina pectoris; D63.1 Anemia in chronic kidney disease; E78.5 Hyperlipidemia, unspecified; G47.33 Obstructive sleep apnea (adult) (pediatric); I73.9 Peripheral vascular disease, unspecified; R33.8 Other retention of urine; Z91.148 Patient's other noncompliance with medication regimen for other reason; J96.01 Acute respiratory failure with hypoxia; I16.1 Hypertensive emergency; R07.9 Chest pain, unspecified; Z20.822 Contact with and (suspected) exposure to COVID-19; Z79.82 Long term (current) use of aspirin; Z79.02 Long term (current) use of antithrombotics/antiplatelets; G40.909 Epilepsy, unspecified, not intractable, without status epilepticus
CPT/HCPCS: 36415; 71045; 80053; 82088; 83605; 83735; 83880; 84100; 84244; 84484; 85025; 86706; 87040; 87340; 87637; 93005; 94640; 97161; 97165; A9270; G0257; J0360; J1644; J1953; J2543; J7030; J7512; Q5105

== ENCOUNTER 2023-10-13 23:38 | Observation (INO) | payer OTHER, SELFPAY ==
--- NOTE | ~2023-10-13 | CT_ITS ---
Non-contrast Head CT History: Altered mental status COMPARISON: 07/17/2023 Technique: Axial non-contrast imaging of the brain was performed. Dose reduction technique was used on this scan by utilizing automated exposure control and iterative reconstruction technique. The dose -length product (DLP) was 756.57 mGy-cm. Findings: There is no evidence of intracranial hemorrhage, mass lesion, or acute infarct. Brain par enchyma appears normal. The ventricles and subarachnoid spaces are normal in size. The calvarium ap pears normal. The visualized paranasal sinuses are clear. There is fluid in bilateral mastoid air ce lls. Impression: No intracranial abnormality seen. Bilateral mastoid effusions. Reviewed, dictated and finalized at [facility]. [employer] Impression: No intracranial abnormality seen. Bilateral mastoid effusions.
--- NOTE | ~2023-10-13 | XR_ITS ---
Clinical Indication: Shortness of breath PA and lateral views of the chest: Comparison: 08/15/2023 Findings: Stable right-sided central venous line present. There is probable mild bibasilar pulmonary edema. Cardiomediastinal silhouette is stable, with pacemaker device. Bones and soft tissues are unr emarkable. Impression: Mild bibasilar pulmonary edema. Stable support line and pacemaker device. Reviewed, dictated and finalized at location . [employer] Impression: Mild bibasilar pulmonary edema. Stable support line and pacemaker device.
[2023-10-13 23:38] VITALS: PULSE 91; RESP 24; TEMP 36.4; O2SAT 99
--- NOTE | 2023-10-13 23:48 | ECG_ITS ---
Measurements Intervals [place] Rate: 80 P: 30 DC: 129 QRS: 45 QRSD: 81 T: 75 QT: 381 QTc: 440 Interpretive Statements SINUS RHYTHM BORDERLINE R WAVE PROGRESSION, ANTERIOR LEADS BORDERLINE ST-T WAVE ABNORMALITY- INF/HIGH LAT LEADS BASELINE WANDER- II, III, AVR, AVL, AVF, V3-V6 BORDERLINE ECG COMPARED TO ECG 08/15/2023 13:01:34 NO SIGNIFICANT CHANGES Electronically Signed On 10-14-2023 15:03:10 [employer] by Varun Ashraf D.O.
[2023-10-14] VITALS (85 sets, daily range): BP systolic 97–253; BP diastolic 50–151; PULSE 60–115; RESP 16–39; TEMP 36.4–37.1; O2SAT 84–100; BMI 20.5
--- NOTE | 2023-10-14 00:05 | PC.NURSE ---
Unsuccessful IV attempt x 2.
--- NOTE | 2023-10-14 00:12 | PCRCNOTE ---
RT to ED 13 to draw abg, patient in CT, unable to get gas at this time. RT will attempt when pt returns.
[2023-10-14 00:39] LABS: Alveolar/Arterial O2 Gradient 69.4 mmHg; Base Excess ABG 0.8 mEq/l (+/-2.0); Fractional Inspired Oxygen 28 %; HCO3 ABG 25.2 mEq/l (22.0-26.0); Oxygen Content ABG 12.4 %vol (16.0-22.0); Oxygen Saturation ABG 96.5 % (95.0-100.0); Oxyhemoglobin 93.9 % THb (90.0-100.0); PCO2 ABG 39.6 mmHg (35.0-45.0); PO2 ABG 83.5 mmHg (80.0-100.0); PO2 FiO2 Ratio Arterial Blood 2.98 %; Total Hemoglobin 9.3 g/dL (12.0-18.0); pH ABG 7.422 (7.350-7.450)
[2023-10-14 00:40] LABS: Device NASAL CANNULA; Modified Allen's Test Pass; Site Drawn LEFT RADIAL
--- NOTE | 2023-10-14 00:43 | PCRCNOTE ---
RT just obtained and processed abg.
--- NOTE | 2023-10-14 01:30 | PC.NURSE ---
Pt found up to sink attempting to drink out of faucet. Explained to pt that an oral swab was on the way. No evidence of learning.
[2023-10-14 02:18] LABS: Basophils Absolute Auto 0.1 K/mm3 (0.0-0.1); Basophils Percent Auto 1.1 % (0.2-1.2); Eosinophils Absolute Auto 0.6 K/mm3 (0-0.3); Eosinophils Percent Auto 5.8 % (0-4.4); Hematocrit 28.1 % (42.0-52.0); Hemoglobin 8.7 g/dL (14.0-18.0); Immature Granulocyte Absolute 0.04 K/mm3 (0.00-0.031); Immature Granulocyte Percent A 0.4 % (0-0.5); Lymphocytes Absolute Auto 1.25 K/mm3 (0.9-3.2); Lymphocytes Percent Auto 12.1 % (18.3-44.2); Mean Corpuscular Hemoglobin 32.6 pg (26-34); Mean Corpuscular Volume 105.2 fl (80-100); Mean Platelet Volume 12.2 fl (7.4-10.4); Monocytes Absolute Auto 0.7 K/mm3 (0.1-0.6); Monocytes Percent Auto 6.4 % (2.6-8.5); Neutrophils Absolute Auto 7.6 K/mm3 (1.3-6.7); Neutrophils Percent Auto 74.2 % (45.5-73.1); Platelet Count Result 203 k/mm3 (150-375); Red Blood Count 2.67 M/mm3 (4.6-6.20); Red Cell Distribution Width 13.5 % (11.5-14.5); White Blood Count 10.3 K/mm3 (4.5-10.0)
[2023-10-14 02:27] LABS: Lactic Acid Reflex 0.8 mmol/L (0.7-2.0)
[2023-10-14 02:28] LABS: Alanine Aminotransferase 15 U/L (6-50); Albumin Level 3.7 g/dL (3.5-5.1); Alkaline Phosphatase 64 U/L (38-126); Anion Gap 12 mmol/L (8-16); Aspartate Amino Transferase 30 U/L (17-59); Bilirubin,Total 0.5 mg/dL (0.2-1.3); Blood Urea Nitrogen 38 mg/dL (9-20); Calcium 8.9 mg/dL (8.4-10.2); Carbon Dioxide 26 mmol/L (22-30); Chloride 101 mmol/L (98-107); Estimated Glomerular Filt Rate 5; Glucose 70 mg/dL (65-110); Magnesium 2.1 mg/dL (1.6-2.3); Potassium 5.9 mmol/L (3.4-5.0); Prothrombin Time 13.7 Seconds (11.1-14.7); Sodium 139 mmol/L (137-145)
[2023-10-14 02:29] LABS: Partial Thromboplastin Time 29.7 SECONDS (22.3-36.8)
[2023-10-14 02:37] LABS: Macrocytosis 1+ (NORMAL); Ovalocytes 1+ (NORMAL); Platelet Estimate Adequate (Adequate)
[2023-10-14 02:38] LABS: Acanthocytes 1+ (NORMAL); Schistocytes None Seen (NORMAL)
[2023-10-14 02:49] LABS: Troponin I 0.144 ng/mL (0.000-0.034)
[2023-10-14 02:57] LABS: Ethanol < 10 mg/dL (<10)
[2023-10-14 03:22] LABS: Procalcitonin 0.4 ng/mL
[2023-10-14] MEDS: hydrALAZINE HCL 20 MG/ML VIAL 10 MG IV PUSH (04:59)
--- NOTE | 2023-10-14 05:00 | PC.NURSE ---
Pt requesting water again. ERP ok with ice chips. Ice chips provided.
--- NOTE | 2023-10-14 05:16 | ED.GENADULT ---
HPI - General Adult General Chief complaint: Shortness of Breath/Dyspnea Stated complaint: SOB, MISSED HD TODAY Time Seen by Provider: 10/13/23 23:46 History of Present Illness HPI narrative: Patient is a 67-year-old gentleman who presents emergency department with chief complaint of shortness of breath the patient pushed his medical alert bracelet twice today and has been feeling more short of breath the patient has missed his dialysis due to the facility being closed due to the weather patient reports that he has had a cough it has been productive of brown sputum. Related Data Home Medications Medication Instructions Recorded Confirmed famotidine 20 mg tablet 20 mg PO HS 03/19/22 08/15/23 umeclidinium 62.5 mcg/actuation 1 inh inhalation DAILY 03/24/22 08/15/23 blister powder for inhalation (Incruse Ellipta) fluticasone 500 mcg-salmeterol 50 1 inh inhalation BID 04/24/22 08/15/23 mcg/dose blistr powdr for inhalation (Advair Diskus) Advair Diskus 1 puff inhalation BID 07/17/23 08/15/23 atorvastatin 40 mg tablet 40 mg PO DAILY 07/17/23 08/15/23 divalproex 250 mg tablet,extended 500 mg PO DAILY 07/17/23 08/15/23 release 24 hr (Depakote ER) nifedipine 60 mg PO DAILY 07/17/23 08/15/23 sodium bicarbonate 10 g PO TID 07/17/23 08/15/23 tamsulosin 0.4 mg capsule 0.4 mg PO DAILY 07/17/23 08/15/23 isosorbide mononitrate 30 mg 30 mg PO DAILY 07/18/23 08/15/23 tablet,extended release 24 hr Allergies Allergy/AdvReac Type Severity Reaction Status Date / Time No Known Allergies Allergy Verified 03/16/23 17:29 Review of Systems Review of Systems: A 10 system review of systems was completed on the patient and is negative except for what is stated in the HPI. Nursing and ancillary documentation was reviewed. [facility] Past Medical History Medical History Cerebrovascular accident Chronic obstructive pulmonary disease Coronary artery disease COVID-19 (02/2022) End-stage renal disease on hemodialysis Friday Erythropoietin deficiency anemia Facial edema GERD with esophagitis Hyperlipidemia Hypertension Obstructive sleep apnea Pacemaker Peripheral vascular disease Renal osteodystrophy Seizure-like activity Normal EEG in April 2022 though patient is on levetiracetam. Tobacco abuse Vertebral artery stenosis Surgical History Surgical History History of percutaneous coronary intervention Iliac stent. Cardiac stents. History of permanent cardiac pacemaker placement S/P hemodialysis catheter insertion Family History Family History Father Cancer of lung Mother Heart failure Social History Social History Social History: He lives with his son. The patient continues to smoke a pack a cigarettes a day. He is listed as single and unemployed. Healthcare power of clamp forklift operator: Von Donahue, son. Code status: Full code. Smoking packs per day: 1 Smoking cigarettes per day: 20.0 Years smoked: 50 Smoking pack-years: 50.00 Smoking status: Current every day smoker Tobacco type: cigarettes Second hand tobacco smoke exposure: No Alcohol intake: never Substance use: current Substance use type: does not use Other substance usage details: on occasion unsure of last use Lack of Transportation: No Lack of Food: Never True Current Housing: I Have Housing Concerned About Future Housing: No Difficulty Paying Gas/Electric Bills: No Difficulty Paying for Meds: No Currently Unemployed: No Education: Decline to Answer Difficulty w/ Childcare or Family Care: No Additional living arrangements comments: The patient lives in [place]. His son Von lives at home with him. Spiritual care concerns: No
--- NOTE | 2023-10-14 05:21 | PC.NURSE ---
Pt attempting to get out of bed. Wanting coffee. Explained to pt rational for no coffee at this time. No evidence of learning.
[2023-10-14 06:15] LABS: Influenza A QL RT-PCR Negative (Negative); Influenza B QL RT-PCR Negative (Negative); RSV RNA, RT-PCR Negative (Negative); SARS-CoV-2 RNA PCR Negative (Negative)
[2023-10-14] MEDS: NITROGLYCERIN OINTMENT 1 INCH DOSE TRANSDERM (07:10)
--- NOTE | 2023-10-14 07:17 | PC.NURSE ---
Report to JIM Stringer. Pt reconnected to monitors.
[2023-10-14 07:45] LABS: Hepatitis B Surface Antigen Negative (Negative)
[2023-10-14 08:02] LABS: Hepatitis B Surface Anti Res Negative
--- NOTE | 2023-10-14 08:12 | PC.NURSE ---
ordered decaf coffee
[2023-10-14 09:06] LABS: Appearance Urine Clear (Clear); Bacteria Urine None Seen /hpf; Bilirubin Urine Negative (Negative); Blood Urine Trace (Negative); Color Urine Yellow (Yellow); Glucose Urine UA Trace mg/dL (Negative); Ketones Urine Negative (Negative); Leukocyte Esterase Ur Negative LEU/UL (Negative); Nitrate Urine Negative (Negative); Non Pathogenic Casts 0-2; Protein Urine 2+ mg/dL (Negative); RBC Urine 0-2 /hpf (0-2); Specific Grav Ur 1.011 (1.001-1.035); Squamous Epithelial Cell Urine None seen /hpf (Few); Urobilinogen Urine 0.2 mg/dL (<2.0); WBC Urine 0-5 /hpf; pH Urine 8.5 (5.0-9.0)
[2023-10-14 09:07] LABS: Add Urine Microscopic? YES
[2023-10-14 09:16] LABS: Amphetamine Screen Urine Negative (Negative); Barbiturate Screen Urine Negative (Negative); Benzodiazepines Screen Urine Negative (Negative); Cannabinoid Screen Urine Negative (Negative); Cocaine Screen Urine Negative (Negative); Methadone Screen Urine Negative (Negative); Opiate Screen Urine Negative (Negative); Phencyclidine Screen Urine Negative (Negative)
[2023-10-14 09:27] LABS: Troponin I 0.144 ng/mL (0.000-0.034)
--- NOTE | 2023-10-14 09:29 | ADMGEN ---
This patient, Sachin Donahue, was admitted to IMU Room 205-02. Patient/family oriented to hospital policies and general routines including ID bracelet, bed and alarms, visiting hours, pain management, procedures, bathroom and other care routines, personal items, smoking policy, room service/diet, and visiting hours. Information on how to activate the Rapid Response Team has been discussed. Patient/Family are encouraged to report perceived risks to care and to ask questions if they do not understand what they are told or what they should do.
[2023-10-14] MEDS: LOSARTAN POTASSIUM 50 MG TABLET PO ×2 (10:14→17:51)
[2023-10-14] MEDS: NIFEdipine 30 MG TAB.ER.24 60 MG PO (10:14)
[2023-10-14] MEDS: carvediloL 12.5 MG TABLET PO ×2 (10:14→20:38)
[2023-10-14] MEDS: ATORVASTATIN 40 MG TABLET PO (12:33)
[2023-10-14] MEDS: ISOSORBIDE MONONITRATE 30 MG TAB.ER.24H PO (12:33)
[2023-10-14] MEDS: levETIRAcetam 250 MG TABLET PO ×2 (12:33→20:38)
[2023-10-14] MEDS: hydrALAZINE HCL 50 MG TABLET 100 MG PO ×2 (12:33→17:51)
[2023-10-14] MEDS: SODIUM BICARBONATE TAB 650 MG TABLET PO ×2 (12:33→17:51)
[2023-10-14] MEDS: cloNIDine HCL 0.1 MG TABLET PO ×2 (12:33→17:51)
[2023-10-14] MEDS: DIVALPROEX SODIUM ER 500 MG TAB.24H PO (12:34)
--- NOTE | 2023-10-14 13:48 | PM.IMHP ---
H&P: HPI History of Present Illness Date/Time: 10/14/23 13:48 Chief Complaint: SOB Narrative: Patient is a 67 YO male with PMH of end-stage renal disease on hemodialysis, COPD/emphysema, congestive heart failure, hypertension, seizure disorder, benign prostatic hyperplasia, stroke, GERD, pacemaker in place, peripheral vascular disease, tobacco dependence admitted with chief complaint of shortness of breath. He missed his dialysis on Friday due to the facility being closed due to the weather. Patient does endorse a cough and sore throat. Reports he can usually tell when he is hypertensive and checks his BP at home. Patient is also a poor historian, difficult of hearing. He has been admitted to [facility] and the hospitalist team several times, most recently in July. Patient currently denies chest pain, abdominal pain or [place]. Denies other viral symptoms. Denies changes to his medications since last admission. Pharmacy contacted and used last admission medications to reconcile his home meds. Nephrology was consulted for dialysis as his schedule is normally //. Will work to get him into dialysis today. UA negative for infection, respiratory panel negative, hep panel negative and UDS negative. MRSA pending. Trops negative, but have trended down. Likely from fluid overload. Head CT negative for acute process. CXR showed pulmonary edema, but no signs of infection. He is currently on 2L O2, which he is not on any oxygen at baseline. BC drawn and pending. Patient is not in acute stress this morning, although lethargic. Labs are quite elevated - creatinine 10.2 and potassium 5.9. He will remain in telemetry. Recheck BMP in am after dialysis, assume this will improve closer to his baseline after. Review of Systems Review of Systems: All systems reviewed & are unremarkable except as noted in HPI and below [facility] Past Medical History Medical History (Updated 10/14/23 @ 14:11 by Elizabeth Velasco APRN) Cerebrovascular accident Chronic obstructive pulmonary disease Coronary artery disease COVID-19 (02/2022) End-stage renal disease on hemodialysis Friday Erythropoietin deficiency anemia Facial edema GERD with esophagitis Hyperlipidemia Hypertension Obstructive sleep apnea Pacemaker Peripheral vascular disease Renal osteodystrophy Seizure-like activity Normal EEG in April 2022 though patient is on levetiracetam. Tobacco abuse Vertebral artery stenosis Surgical History Surgical History History of percutaneous coronary intervention Iliac stent. Cardiac stents. History of permanent cardiac pacemaker placement S/P hemodialysis catheter insertion Family History Family History Father Cancer of lung Mother Heart failure Social History Social History Social History: He lives with his son. The patient continues to smoke a pack a cigarettes a day. He is listed as single and unemployed. Healthcare power of net software architect: Von Donahue, son. Code status: Full code. Smoking packs per day: 1 Smoking cigarettes per day: 20.0 Years smoked: 55 Smoking pack-years: 55.00 Smoking status: Current every day smoker Tobacco type: cigarettes Second hand tobacco smoke exposure: No Alcohol intake: never Substance use: never Substance use type: does not use Other substance usage details: on occasion unsure of last use Do You Feel Safe in your Home?: Yes Lack of Transportation: YES Lack of Food: Never True Current Housing: I Have Housing Concerned About Future Housing: No Difficulty Paying Gas/Electric Bills: No Difficulty Paying for Meds: No Currently Unemployed: No Education: Don't Know Difficulty w/ Childcare or Family Care: No Additional living arrangements comments: The patient lives in [place]. His son T
[2023-10-14] MEDS: SODIUM CHLORIDE 0.9% IV 1,000 ML 999 ML IV CONT (14:06)
[2023-10-14 14:16] LABS: MRSA (PCR) NOT DETECTED (NOT DETECTE)
[2023-10-14] MEDS: ALBUMIN HUMAN 25% 12.5 GM/50ML 50 ML IVPB (14:23)
[2023-10-14] MEDS: ACETAMINOPHEN 325 MG TABLET 650 MG PO ×2 (14:40→20:38)
--- NOTE | 2023-10-14 15:15 | PM.CNNEP ---
Assessment and Plan Assessment and plan (1) End stage renal disease: Code(s): N18.6 - End stage renal disease Status: Chronic Assessment and Plan: HD today resume M/W/F dialysis schedule tomorrow follow electrolytes, volume status, and clearance (2) Hyperkalemia: Code(s): E87.5 - Hyperkalemia Status: Acute Assessment and Plan: due to missed treatment on Friday dialysis today to correct follow repeat K+ levels (3) Acute hypoxemic respiratory failure: Code(s): J96.01 - Acute respiratory failure with hypoxia Status: Acute Assessment and Plan: multifactorial etiology: pulmonary edema/volume overload HTN urgency COPD (continues to smoke) continue supplemental oxygen bronchodilators/nebulizer treatments fluid removal with dialysis today and tomorrow follow respiratory status (4) Hypertension: Code(s): I10 - Essential (primary) hypertension Status: Chronic Assessment and Plan: quite elevated on presentation resume home medications along with IV medications PRN poor control at baseline due to compliance issues with BP medications follow trend of hemodynamics (5) Anemia: Code(s): D64.9 - Anemia, unspecified Status: Chronic Assessment and Plan: related to ESRD Epogen with HD once BP better controlled follow trend of H/H I will continue to follow patient with you while remains hospitalized and make further recommendations during his hospital course. Thank you for allowing me to participate in care this patient. History of Present Illness Reason for Consult Consult date: 10/14/23 Reason for consult: end stage renal disease Chief Complaint Chief complaint: dyspneahypertensive urgency,fluid overload,erd on History of Present Illness Narrative: The patient is a 67-year-old male with extensive past medical history as outlined below who presented to [facility] Emergency room due to complaints of shortness of breath. The patient apparently missed his dialysis treatment yesterday due to the inclement weather conditions. Since that time, he has endorsed a cough and sore throat. Aside from the shortness of breath, he does not really have any other complaints but it should be noted that the patient is a poor historian it is somewhat difficult to get a full and complete history from him. He denies any symptoms of chest pain, headache, palpitations, the chest congestion, dizziness, lightheadedness, or worsening lower extremity edema. Workup and evaluation emergency room demonstrated the patient be quite hypertensive and in mild respiratory distress. Supplemental oxygen was applied due to his complaints of shortness of breath. Routine blood test demonstrated labs consistent with his known history of end-stage renal disease with a mildly elevated potassium level as well. His chest x-ray demonstrated evidence of pulmonary edema but no acute infiltrates or infection. His head CT was also negative for any acute intracranial process. His viral pathogen panel was negative as was his urinalysis. His troponins were mildly elevated but have trended down since his admission. Given his constellation of symptoms and laboratory/ imaging findings, he was admitted the hospital for further evaluation and therapy. Renal consultation was requested due to his end-stage renal disease. The patient normally dialyzes on a Friday, Friday, schedule under the care of Dr. Reji Forte at [facility]. The patient is somewhat familiar to me as I taken care of him before on previous hospitalizations here at [facility]. Despite his known history of end-stage renal disease, he still has a significant component of residual kidney function and hence has some urine output which does help maintain his volume status to some extent. His noncompliance with medications is a longstanding issue as he reports v
[2023-10-14] MEDS: EPOETIN ALFA-EPBX 10,000 UNITS/ML VIAL 10000 UNITS IV PUSH (17:10)
[2023-10-14] MEDS: HEPARIN SODIUM 1,000 UNITS/ML VIAL 4000 UNITS (17:15)
[2023-10-14] MEDS: UMECLIDINIUM BROMIDE 62.5 MCG ELLIPTA 1 PUFF INHALATION (18:00)
[2023-10-14] MEDS: FAMOTIDINE 20 MG TABLET PO (20:38)
[2023-10-14] MEDS: HEPARIN SODIUM 5,000 UNITS/ML VIAL 5000 UNITS SUB-Q (20:39)
[2023-10-14] MEDS: FLUTICASONE/SALMETEROL 230-21 MCG INHALER 1 PUFF 2 PUFF INHALATION (20:47)
[2023-10-15] VITALS (30 sets, daily range): BP systolic 101–205; BP diastolic 55–125; PULSE 59–84; RESP 17–24; TEMP 36.1–37; O2SAT 91–100
[2023-10-15 05:13] LABS: Basophils Absolute Auto 0.1 K/mm3 (0.0-0.1); Basophils Percent Auto 1.4 % (0.2-1.2); Eosinophils Absolute Auto 0.4 K/mm3 (0-0.3); Eosinophils Percent Auto 5.5 % (0-4.4); Hematocrit 28.1 % (42.0-52.0); Hemoglobin 8.8 g/dL (14.0-18.0); Immature Granulocyte Absolute 0.03 K/mm3 (0.00-0.031); Immature Granulocyte Percent A 0.4 % (0-0.5); Lymphocytes Absolute Auto 1.55 K/mm3 (0.9-3.2); Lymphocytes Percent Auto 19.7 % (18.3-44.2); Mean Corpuscular HGB Conc 31.3 g/dl (32-36); Mean Corpuscular Hemoglobin 32.2 pg (26-34); Mean Corpuscular Volume 102.9 fl (80-100); Mean Platelet Volume 11.6 fl (7.4-10.4); Monocytes Absolute Auto 0.8 K/mm3 (0.1-0.6); Monocytes Percent Auto 10.6 % (2.6-8.5); Neutrophils Absolute Auto 4.9 K/mm3 (1.3-6.7); Neutrophils Percent Auto 62.4 % (45.5-73.1); Platelet Count Result 208 k/mm3 (150-375); Red Blood Count 2.73 M/mm3 (4.6-6.20); Red Cell Distribution Width 13.5 % (11.5-14.5); White Blood Count 7.9 K/mm3 (4.5-10.0)
[2023-10-15 05:32] LABS: Albumin Level 3.9 g/dL (3.5-5.1); Anion Gap 10 mmol/L (8-16); Blood Urea Nitrogen 19 mg/dL (9-20); Calcium 8.7 mg/dL (8.4-10.2); Carbon Dioxide 29 mmol/L (22-30); Chloride 101 mmol/L (98-107); Estimated CRCL calculation 8 ml/min; Estimated Glomerular Filt Rate 9; Glucose 86 mg/dL (65-110); Magnesium 2.1 mg/dL (1.6-2.3); Phosphorus 3.7 mg/dL (2.5-4.5); Potassium 4.5 mmol/L (3.4-5.0); Sodium 140 mmol/L (137-145)
[2023-10-15] MEDS: FLUTICASONE/SALMETEROL 230-21 MCG INHALER 1 PUFF 2 PUFF INHALATION ×2 (07:29→18:50)
[2023-10-15] MEDS: UMECLIDINIUM BROMIDE 62.5 MCG ELLIPTA 1 PUFF INHALATION (07:30)
[2023-10-15] MEDS: SODIUM CHLORIDE 0.9% IV 1,000 ML 999 ML IV CONT (08:17)
[2023-10-15] MEDS: hydrALAZINE HCL 50 MG TABLET 100 MG PO ×3 (08:56→18:07)
[2023-10-15] MEDS: oxyBUTYnin CHLORIDE XL 5 MG TAB.ER.24 10 MG PO (08:56)
[2023-10-15] MEDS: TAMSULOSIN HCL 0.4 MG CAPSULE PO (08:56)
[2023-10-15] MEDS: ATORVASTATIN 40 MG TABLET PO (08:56)
[2023-10-15] MEDS: ISOSORBIDE MONONITRATE 30 MG TAB.ER.24H PO (08:56)
[2023-10-15] MEDS: ASPIRIN 81 MG CHEWABLE TABLET PO (08:56)
[2023-10-15] MEDS: SODIUM BICARBONATE TAB 650 MG TABLET PO ×3 (08:56→18:07)
[2023-10-15] MEDS: NIFEdipine 30 MG TAB.ER.24 60 MG PO (08:56)
[2023-10-15] MEDS: levETIRAcetam 250 MG TABLET PO (08:56)
[2023-10-15] MEDS: CLOPIDOGREL BISULFATE 75 MG TABLET PO (08:56)
[2023-10-15] MEDS: cloNIDine HCL 0.1 MG TABLET PO ×3 (08:56→18:07)
[2023-10-15] MEDS: carvediloL 12.5 MG TABLET PO (08:57)
[2023-10-15] MEDS: LOSARTAN POTASSIUM 50 MG TABLET PO ×2 (08:57→18:07)
[2023-10-15] MEDS: DIVALPROEX SODIUM ER 500 MG TAB.24H PO (08:57)
[2023-10-15] MEDS: HEPARIN SODIUM 5,000 UNITS/ML VIAL 5000 UNITS SUB-Q (08:57)
--- NOTE | 2023-10-15 10:03 | P.PNIM_ITS ---
Progress Note: A&P Assessment and Plan (1) ESRD (end stage renal disease) on dialysis: Code(s): N18.6 - End stage renal disease; Z99.2 - Dependence on renal dialysis Status: Chronic Assessment and Plan: 10/14/23: * Nephrology following * HD today since missed yesterday * continue M/W/F dialysis schedule * follow electrolytes, volume status, and clearance 10/15/23: * (2) Acute dyspnea: Code(s): R06.00 - Dyspnea, unspecified Status: Acute Assessment and Plan: 10/14/23: * multifactorial etiology: * pulmonary edema/volume overload * HTN urgency * COPD exacerbation (continues to smoke) * continue supplemental oxygen * CXR showed mild bibasilar pulmonary edema * Respiratory panel negative * MRSA nasal pending * BC pending 10/15/23: * (3) Hypertension: Qualifiers: Hypertension type: unspecified secondary hypertension Qualified Code(s): I15.9 - Secondary hypertension, unspecified Code(s): I10 - Essential (primary) hypertension Status: Chronic Assessment and Plan: 10/14/23: * elevated on presentation * resume home medications along with IV medications PRN * poor control at baseline due to compliance issues with BP medications * follow trend of hemodynamics 10/15/23: * (4) Pulmonary edema: Code(s): J81.1 - Chronic pulmonary edema Status: Acute Assessment and Plan: 10/14/23: * evidenced on CXR * consider repeat or CT scan tomorrow * continue supplemental O2 10/15/23: * (5) Anemia: Code(s): D64.9 - Anemia, unspecified Status: Chronic Assessment and Plan: 10/14/23: * related to ESRD * Epogen with HD once BP better controlled * follow trend of H/H 10/15/23: * Time Spent With Patient Time with patient: 25 - 35 minutes Subjective Date/time seen: 10/15/23 10:03 Interval history: This is a 67 year old male who presented to the hospital with complaints of SOB. Patient has a significant past medical history of ESRD on HD and he missed his HD session on Friday. Patient does have sore throat and cough. Work up in the hospital included a head CT which was negative for any acute intracranial abnormalities. CXR was showing mild bibasilar pulmonary edema. Labs initially revealed WBC 10.3, Hgb 8.7, Hct 28.1, K+ 5.9, BUN 38, Creatinine 10.20, Troponins 0.144>0.144>0.130, flat. UA shown 2+ protein, trace glucose, otherwise negative. MRSA negative. Toxicology screen negative, and Respiratory panel was negative. On examination today patientLabs today revealed WBC 7.9, Hgb 8.8, Hct 28.1, K+ 4.5, BUN 19, Creatinine 6.30. Review of Systems Review of Systems: All systems reviewed & are unremarkable except as noted in HPI and below Exam Narrative: General: In no acute distress, well nourished Head: atraumatic, no encephalopathy Eyes: EOMI, PERRLA, sclera clear ENT: moist mucous membranes, nasal passages clear Neck: supple, no JVD, no adenopathy, trachea midline Cardiac: Normal S1 and S2. No murmur, gallops or friction rubs, peripheral pulses intact. Respiratory: Lungs clear to auscultation, no adventitious lung sounds Gastrointestinal: soft, non-distended, non-tender, normoactive bowel sounds. : voiding without difficulty. Extremities: moves all extremities well, no edema, good ROM, strength 5/5 Skin: clean, dry, intact. No wounds or lesions. Neuro: Alert and oriented x4, cranial nerves intact, no neuro deficits. Psych: normal mood, philipp
--- NOTE | 2023-10-15 10:03 | PM.IMPN ---
Progress Note: A&P Assessment and Plan (1) ESRD (end stage renal disease) on dialysis: Code(s): N18.6 - End stage renal disease; Z99.2 - Dependence on renal dialysis Status: Chronic Assessment and Plan: 10/14/23: Nephrology following HD today since missed yesterday continue M/W/F dialysis schedule follow electrolytes, volume status, and clearance 10/15/23: (2) Acute dyspnea: Code(s): R06.00 - Dyspnea, unspecified Status: Acute Assessment and Plan: 10/14/23: multifactorial etiology: pulmonary edema/volume overload HTN urgency COPD exacerbation (continues to smoke) continue supplemental oxygen CXR showed mild bibasilar pulmonary edema Respiratory panel negative MRSA nasal pending BC pending 10/15/23: (3) Hypertension: Qualifiers: Hypertension type: unspecified secondary hypertension Qualified Code(s): I15.9 - Secondary hypertension, unspecified Code(s): I10 - Essential (primary) hypertension Status: Chronic Assessment and Plan: 10/14/23: elevated on presentation resume home medications along with IV medications PRN poor control at baseline due to compliance issues with BP medications follow trend of hemodynamics 10/15/23: (4) Pulmonary edema: Code(s): J81.1 - Chronic pulmonary edema Status: Acute Assessment and Plan: 10/14/23: evidenced on CXR consider repeat or CT scan tomorrow continue supplemental O2 10/15/23: (5) Anemia: Code(s): D64.9 - Anemia, unspecified Status: Chronic Assessment and Plan: 10/14/23: related to ESRD Epogen with HD once BP better controlled follow trend of H/H 10/15/23: Time Spent With Patient Time with patient: 25 - 35 minutes Subjective Date/time seen: 10/15/23 10:03 Interval history: This is a 67 year old male who presented to the hospital with complaints of SOB. Patient has a significant past medical history of ESRD on HD and he missed his HD session on Friday. Patient does have sore throat and cough. Work up in the hospital included a head CT which was negative for any acute intracranial abnormalities. CXR was showing mild bibasilar pulmonary edema. Labs initially revealed WBC 10.3, Hgb 8.7, Hct 28.1, K+ 5.9, BUN 38, Creatinine 10.20, Troponins 0.144>0.144>0.130, flat. UA shown 2+ protein, trace glucose, otherwise negative. MRSA negative. Toxicology screen negative, and Respiratory panel was negative. On examination today patientLabs today revealed WBC 7.9, Hgb 8.8, Hct 28.1, K+ 4.5, BUN 19, Creatinine 6.30. Review of Systems Review of Systems: All systems reviewed & are unremarkable except as noted in HPI and below Exam Narrative: General: In no acute distress, well nourished Head: atraumatic, no encephalopathy Eyes: EOMI, PERRLA, sclera clear ENT: moist mucous membranes, nasal passages clear Neck: supple, no JVD, no adenopathy, trachea midline Cardiac: Normal S1 and S2. No murmur, gallops or friction rubs, peripheral pulses intact. Respiratory: Lungs clear to auscultation, no adventitious lung sounds Gastrointestinal: soft, non-distended, non-tender, normoactive bowel sounds. : voiding without difficulty. Extremities: moves all extremities well, no edema, good ROM, strength 5/5 Skin: clean, dry, intact. No wounds or lesions. Neuro: Alert and oriented x4, cranial nerves intact, no neuro deficits. Psych: normal mood, normal affect, interactive Objective Data Vital Signs Vital Signs: Vital Signs - 24 hr 10/14/23 11:34 10/14/23 12:00 10/14/23 14:00 Temperature 98.8 F Pulse Rate 76 68 71 Respiratory Rate 28 H Blood Pressure 158/101 H Pulse Oximetry 97 Oxygen Delivery Oxygen Flow Rate Fraction of Inspired Oxygen 10/14/23 14:06 10/14/23 14:06 10/14/23 14:14 Temperature 98.6 F Pulse Rate 67 66 Respiratory Rate 20 Blood Pressure 107/61 97/63 L Pulse Oximetry Oxygen Deliver
[2023-10-15] MEDS: EPOETIN ALFA-EPBX 10,000 UNITS/ML VIAL 10000 UNITS IV PUSH (10:34)
[2023-10-15] MEDS: HEPARIN SODIUM 1,000 UNITS/ML VIAL 4000 UNITS (10:42)
--- NOTE | 2023-10-15 11:10 | PM.PNNEP ---
Progress Note: A&P Assessment and Plan (1) End stage renal disease: Code(s): N18.6 - End stage renal disease Status: Chronic Assessment and Plan: HD today continue M/W/F dialysis schedule follow electrolytes, volume status, and clearance (2) Hyperkalemia: Code(s): E87.5 - Hyperkalemia Status: Acute Assessment and Plan: due to missed treatment on Friday corrected with dialysis follow repeat K+ levels (3) Acute hypoxemic respiratory failure: Code(s): J96.01 - Acute respiratory failure with hypoxia Status: Acute Assessment and Plan: multifactorial etiology: pulmonary edema/volume overload HTN urgency COPD (continues to smoke) continue supplemental oxygen bronchodilators/nebulizer treatments fluid removal with dialysis yesterday and today follow respiratory status (4) Hypertension: Code(s): I10 - Essential (primary) hypertension Status: Chronic Assessment and Plan: quite elevated on presentation better control at this time resumed home medications along with IV medications PRN poor control at baseline due to compliance issues with BP medications follow trend of hemodynamics (5) Anemia: Code(s): D64.9 - Anemia, unspecified Status: Chronic Assessment and Plan: related to ESRD Epogen with HD once BP better controlled follow trend of H/H Not opposed to discharge from renal perspective if he is otherwise medically stable. Will continue to follow. Subjective Date/time seen: 10/15/23 11:10 Interval history: Follow-up for end stage renal disease on hemodialysis. Tolerated dialysis treatment yesterday and currently (seen on HD at 11:00AM); breathing/respiratory status seems better in general; more awake and conversant at the time of my visit; no apparent distress noted. Exam Narrative: General: chronically ill-appearing male in NAD Heart: normal S1 and S2; no rub Lungs: coarse breath sounds throughout Abdomen: soft, nontender, nondistended, positive bowel sounds Extremities: no cyanosis or clubbing; no edema Skin: warm and dry Objective Data Vital Signs Vital Signs: Vital Signs Temp Pulse Resp BP Pulse Ox O2 Del Method O2 Flow Rate 10/15/23 11:00 60 10/15/23 10:16 59 L 123/68 10/15/23 10:00 59 L 101/55 L 10/15/23 09:45 63 129/64 10/15/23 09:30 63 160/85 H 10/15/23 09:15 69 156/95 H 10/15/23 09:03 75 181/125 H 10/15/23 08:46 75 205/115 H 10/15/23 08:30 60 176/98 H 10/15/23 08:25 60 193/104 H 10/15/23 08:17 97.5 F L 66 17 192/113 H 10/15/23 08:17 2 10/15/23 08:00 96 Nasal Cannula 2 10/15/23 08:00 60 10/15/23 08:57 75 10/15/23 07:56 97 F L 70 24 H 186/86 H 96 10/15/23 07:33 95 Nasal Cannula 2 10/15/23 05:58 74 10/15/23 04:00 82 20 98 Nasal Cannula 2 10/15/23 04:00 82 10/15/23 03:53 97.8 F 84 20 153/84 H 98 10/15/23 02:00 64 10/15/23 00:53 97.5 F L 65 20 111/55 L 91 10/15/23 00:00 72 22 H 98 Nasal Cannula 2 10/15/23 00:00 72 10/14/23 23:19 97.6 F 60 22 H 133/50 L 98 10/14/23 21:37 60 10/14/23 20:00 61 18 97 Nasal Cannula 2 10/14/23 20:00 61 10/14/23 20:47 18 10/14/23 20:38 82 10/14/23 20:26 97.6 F 71 22 H 132/79 97 10/14/23 17:15 74 130/69 10/14/23 17:00 69 136/69 10/14/23 16:45 81 138/75 10/14/23 16:30 75 140/79 10/14/23 16:15 81 119/53 L 10/14/23 17:10 97.9 F 77 20 126/69 10/14/23 16:00 84 127/74 10/14/23 18:00 66 10/14/23 17:15 96 Nasal Cannula 2 10/14/23 17:15 73 10/14/23 17:43 97.5 F L 90 32 H 149/68 H 96 10/14/23 15:45 87 153/81 H 10/14/23 15:30 80 162/79 H 10/14/23 15:15 63 128/66
--- NOTE | 2023-10-15 11:10 | P.PNNP_ITS ---
Progress Note: A&P Assessment and Plan (1) End stage renal disease: Code(s): N18.6 - End stage renal disease Status: Chronic Assessment and Plan: * HD today * continue M/W/F dialysis schedule * follow electrolytes, volume status, and clearance (2) Hyperkalemia: Code(s): E87.5 - Hyperkalemia Status: Acute Assessment and Plan: * due to missed treatment on Friday * corrected with dialysis * follow repeat K+ levels (3) Acute hypoxemic respiratory failure: Code(s): J96.01 - Acute respiratory failure with hypoxia Status: Acute Assessment and Plan: * multifactorial etiology: * pulmonary edema/volume overload * HTN urgency * COPD (continues to smoke) * continue supplemental oxygen * bronchodilators/nebulizer treatments * fluid removal with dialysis yesterday and today * follow respiratory status (4) Hypertension: Code(s): I10 - Essential (primary) hypertension Status: Chronic Assessment and Plan: * quite elevated on presentation * better control at this time * resumed home medications along with IV medications PRN * poor control at baseline due to compliance issues with BP medications * follow trend of hemodynamics (5) Anemia: Code(s): D64.9 - Anemia, unspecified Status: Chronic Assessment and Plan: * related to ESRD * Epogen with HD once BP better controlled * follow trend of H/H Not opposed to discharge from renal perspective if he is otherwise medically stable. Will continue to follow. Subjective Date/time seen: 10/15/23 11:10 Interval history: Follow-up for end stage renal disease on hemodialysis. Tolerated dialysis treatment yesterday and currently (seen on HD at 11:00AM); breathing/respiratory status seems better in general; more awake and conversant at the time of my visit; no apparent distress noted. Exam 2 Narrative: General: chronically ill-appearing male in NAD Heart: normal S1 and S2; no rub Lungs: coarse breath sounds throughout Abdomen: soft, nontender, nondistended, positive bowel sounds Extremities: no cyanosis or clubbing; no edema Skin: warm and dry Objective Data Vital Signs Vital Signs: Vital Signs Temp Pulse Resp BP Pulse Ox O2 Del Method O2 Flow Rate 10/15/23 11:00 60 10/15/23 10:16 59 L 123/68 10/15/23 10:00 59 L 101/55 L 10/15/23 09:45 63 129/64 10/15/23 09:30 63 160/85 H 10/15/23 09:15 69 156/95 H 10/15/23 09:03 75 181/125 H 10/15/23 08:46 75 205/115 H 10/15/23 08:30 60 176/98 H 10/15/23 08:25 60 193/104 H 10/15/23 08:17 97.5 F L 66 17 192/113 H 10/15/23 08:17 2 10/15/23 08:00 96 Nasal Cannula 2 10/15/23 08:00 60 10/15/23 08:57 75 10/15/23 07:56 97 F L 70 24 H 186/86 H 96 10/15/23 07:33 95 Nasal Cannula 2 10/15/23 05:58 74 10/15/23 04:00 82 20 98 Nasal Cannula 2 10/15/23 04:00 82 10/15/23 03:53 97.8 F 84 20 153/84 H 98 10/15/23 02:00 64 10/15/23 00:53 97.5 F L 65 20 111/55 L 91 10/15/23 00:00 72 22 H 98 Nasal Cannula 2 10/15/23 00:00 72
--- NOTE | 2023-10-15 14:49 | PM.DS ---
DS: Admitting Diagnosis Discharge Date 10/15/23 Admitting Diagnosis ESRD on dialysis Acute dyspnea hypertension hyperlipidemia pulmonary edema anemia DS: Summary Hospital Course Reason for hospitalization: ESRD on dialysis Hospital Course: This is a 67 year old male who presented to the hospital with complaints of SOB. Patient has a significant past medical history of ESRD on HD and he missed his HD session on Friday. Patient does have sore throat and cough. Work up in the hospital included a head CT which was negative for any acute intracranial abnormalities. CXR was showing mild bibasilar pulmonary edema. Labs initially revealed WBC 10.3, Hgb 8.7, Hct 28.1, K+ 5.9, BUN 38, Creatinine 10.20, Troponins 0.144>0.144>0.130, flat. UA shown 2+ protein, trace glucose, otherwise negative. MRSA negative. Toxicology screen negative, and Respiratory panel was negative. Nephrology was consulted and patient received HD today. Nephrology states that the patient is okay for discharge back to home. On examination today patient is alert and oriented x3, lying in the bed. He denies any fever, chills, nausea, diarrhea, abdominal pain, or chest pain. He is however currently on room air, vital signs are stable, he is afebrile. He is stable for discharge at this time. I did write scripts for his albuterol inhaler and his Advair as he is stating he is out of these prescriptions at home. He will need to follow up with his primary care in 1 week and also make his next HD appointment which is this Friday. Final diagnosis: Acute hypoxic respiratory failure, end-stage renal disease Status at Discharge Cognitive/behavioral status at discharge: Alert oriented x3 Functional status at discharge: independent ambulation Overall status at discharge: patient is progressing back to baseline Time Spent with Patient Time attestation: Total time spent providing and/or coordinating discharge services: Time spent: Greater than 30 minutes Exam Narrative: General: Chronically ill-appearing, disheveled appearance Head: atraumatic, no encephalopathy Eyes: EOMI, PERRLA, sclera clear ENT: moist mucous membranes, nasal passages clear Neck: supple, no JVD, no adenopathy, trachea midline Cardiac: Normal S1 and S2. No murmur, gallops or friction rubs, peripheral pulses intact. Respiratory: Lungs clear to auscultation, no adventitious lung sounds, currently on room air Gastrointestinal: soft, non-distended, non-tender, normoactive bowel sounds. : Hemodialysis patient on Friday HD Extremities: moves all extremities well, no edema, good ROM, strength 5/5 Skin: clean, dry, intact. No wounds or lesions. Neuro: Alert and oriented x4, cranial nerves intact, no neuro deficits. Psych: normal mood, normal affect, interactive DS: Data Data Completed and Pending Completed studies during hospitalization: Head CT Chest x-ray Pending studies at discharge: None Labs on day of discharge: Labs from last 24 hours 10/15/23 04:34 WBC 7.9 RBC 2.73 L Hgb 8.8 L Hct 28.1 L MCV 102.9 H MCH 32.2 MCHC 31.3 L RDW 13.5 Plt Count 208 MPV 11.6 H Immature Gran % (Auto) 0.4 Neut % (Auto) 62.4 Lymph % (Auto) 19.7 [place] % (Auto) 10.6 H Eos % (Auto) 5.5 H Baso % (Auto) 1.4 H Lymph # (Auto) 1.55 [place] # (Auto) 0.8 H Eos # (Auto) 0.4 H Baso # (Auto) 0.1 Abs Immat Gran (auto) 0.03 Absolute Neuts (auto) 4.9 Absolute Nucleated RBC 0.0 Nucleated RBC % 0.0 Sodium 140 Potassium 4.5 Chloride 101 Carbon Dioxide 29 Anion Gap 10 BUN 19 D Creatinine 6.30 H Estim Creat Clear Calc 8 Estimated GFR 9 L Glucose 86 Calcium 8.7 Phosphorus 3.7 Magnesium 2.1 Albumin 3.9 Preliminary micro results at discharge 10/14/23 11:09 Sputum Culture - Preliminary Sputum 10/14/23 12:02 Blood Culture - Preliminary Blood 10/14/23 12:04 Blood Culture - Preliminary Blood Procedures/Treatments: Hemodialysis Discharge Plan Di
== END 2023-10-15 19:45 | disposition home or self-care (01) ==
LOC: ANHED 10-14 05:56 → ANHIMU 10-14 06:30
PROVIDERS: Internal Medicine Nephrology; Nurse Practitioner; Admitting Provider Internal Medicine; Emergency Provider Emergency Medicine; PCP Nurse Practitioner; Visit Provider Internal Medicine
DX: J96.01 Acute respiratory failure with hypoxia (principal); I16.0 Hypertensive urgency; I13.2 Hypertensive heart and chronic kidney disease with heart failure and with stage 5 chronic kidney disease, or end stage renal disease; I50.9 Heart failure, unspecified; N18.6 End stage renal disease; Z99.2 Dependence on renal dialysis; D63.1 Anemia in chronic kidney disease; E87.5 Hyperkalemia; J81.1 Chronic pulmonary edema; N40.0 Benign prostatic hyperplasia without lower urinary tract symptoms; I25.10 Atherosclerotic heart disease of native coronary artery without angina pectoris; Z95.5 Presence of coronary angioplasty implant and graft; K21.9 Gastro-esophageal reflux disease without esophagitis; H74.8X3 Other specified disorders of middle ear and mastoid, bilateral; E78.5 Hyperlipidemia, unspecified; G47.33 Obstructive sleep apnea (adult) (pediatric); Z95.0 Presence of cardiac pacemaker; I73.9 Peripheral vascular disease, unspecified; Z95.820 Peripheral vascular angioplasty status with implants and grafts; G40.909 Epilepsy, unspecified, not intractable, without status epilepticus; F17.210 Nicotine dependence, cigarettes, uncomplicated; Z86.16 Personal history of COVID-19; Z86.73 Personal history of transient ischemic attack (TIA), and cerebral infarction without residual deficits; Z79.52 Long term (current) use of systemic steroids; Z79.01 Long term (current) use of anticoagulants; Z79.02 Long term (current) use of antithrombotics/antiplatelets; Z79.82 Long term (current) use of aspirin; Z79.899 Other long term (current) drug therapy; Z82.49 Family history of ischemic heart disease and other diseases of the circulatory system
CPT/HCPCS: 36415; 36600; 70450; 71046; 80053; 80069; 80307; 81001; 82805; 83605; 83735; 84145; 84484; 85025; 85610; 85730; 86706; 87040; 87070; 87205; 87340; 87637; 87641; 93005; 94640; 96372; 96374; 96375; 99285; A9270; G0257; G0378; G0379; J0360; J1644; J7030; P9047; Q5105